=== PATIENT | male | born 1935 | race Caucasian/White ===

== ENCOUNTER 2018-04-10 19:27 | Emergency (ER) | payer OTHER ==
[~2018-04-10] VITALS: Ht 167.6 cm; Wt 69.2 kg
[~2018-04-10 19:27] MED LIST: ASPEC325 PO; CARB200T PO; HYDC25 PO; METO50TA16 PO; SIMV80TA2 PO
[2018-04-10 19:44] VITALS: Ht 167.6 cm; Wt 69.2 kg
--- NOTE | 2018-04-10 20:03 | EMERGENCY ROOM VISIT NOTE ---
History Report prepared by Jero: Alexander Alonso Under the Supervision of: Dr. Art Ovalle M.D. First contact with patient: 19:46 Chief Complaint: FALL Stated Complaint: FELL ONTO CHEST 5DAYS AGO,CHEST MUSCLE PAIN History of Present Illness The patient is an 82 year old male who presents to the Emergency Room with complaints of constant right-sided chest pain following a fall beginning five days ago. The patient states that he was visiting friends in [place] a week ago and tripped over a plank of wood in their garage. He notes that he had his hands full when he fell, and he reports that he fell forward onto his chest. He reports that his chest pain worsens when he takes a deep breath. He rates his pain as a 5/10. The patient states that he has been taking tramadol and ibuprofen with no relief of his pain. He notes that he last took pain medication this morning. He notes that he had heart bypass surgery in 1998. Source of History: patient Onset: five days ago Position: chest Symptom Intensity: 5/10 Timing: constant Modifying Factors (Worsening): other (deep breathing) Review of Systems See HPI for pertinent positives & negatives. A total of 10 systems reviewed and were otherwise negative. Past Medical & Surgical Medical Problems: (1) Heart disease Surgical Problems: (1) S/P triple vessel bypass Family History Seizures Social History Smoking Status: Former Smoker Alcohol Use: none Marital Status: Housing Status: lives with family Occupation Status: retired Current/Historical Medications Scheduled Aspirin (Aspirin Ec), 325 MG PO DAILY Carbamazepine (Tegretol), 200 MG PO BID Cholecalciferol (Vitamin D3), 1 TAB PO DAILY Hydrochlorothiazide (Hydrochlorothiazide), 12.5 MG PO DAILY Metoprolol Tartrate (Lopressor) (Lopressor), 25 MG PO BID Simvastatin (Zocor), 80 MG PO QPM Scheduled PRN Tramadol (Ultram), 50 MG PO Q4H PRN for Pain Allergies Coded Allergies: Hydantoins (Verified Allergy, Unknown, 04/10/18) Phenytoin (Verified Allergy, Unknown, 04/10/18) Diltiazem (Unverified Adverse Reaction, Severe, red rash on chest, 04/10/18 ) Physical Exam Vital Signs Date Time Temp Pulse Resp B/P (MAP) Pulse Ox O2 Delivery O2 Flow Rate FiO2 04/10/18 21:44 37.5 81 19 112/72 94 04/10/18 19:44 37.5 82 16 110/50 94 Room Air Physical Exam GENERAL: Awake, alert, well-appearing, in no acute distress HENT: Normocephalic, atraumatic. Oropharynx unremarkable. EYES: Normal conjunctiva. Sclera non-icteric. NECK: Supple. No nuchal rigidity. FROM. No JVD. RESPIRATORY: Clear to auscultation. CARDIAC: Regular rate, normal rhythm. Extremities warm and well perfused. Pulses equal. ABDOMEN: Soft, non-distended. No tenderness to palpation. No rebound or guarding. No masses. RECTAL: Deferred. MUSCULOSKELETAL: The back is symmetrical on inspection without obvious abnormality. There is no CVA tenderness to palpation. No joint edema. Tender to the right chest wall around the right 8th rib area. LOWER EXTREMITIES: Calves are equal size bilaterally and non-tender. No edema. No discoloration. NEURO: Normal sensorium. No sensory or motor deficits noted. SKIN: No rash or jaundice noted. Medical Decision & Procedures ER Provider Diagnostic Interpretation: Radiology results as stated below per my review and radiologist interpretation: PA CHEST WITH RIGHT-SIDED RIB SERIES FINDINGS: A PA chest radiograph with 5 additional views may right-sided rib series is compared to study dated 08/15/2016. Correlation is made with abdominal CT dated 06/06/2010. The PA view is degraded by patient rotation. The patient is status post midline sternotomy. The cardiomediastinal heart is enlarged and there is atherosclerotic calcification of the thoracic aorta. The pulmonary vasculature is noncongested. There is bibasilar atelectasis. Chronic interstitial thickening is similar to previous. No airspace consolidation or pleural effusion is identified. No pneumothorax is seen. The skeletal structures are osteopenic. Question acute nondistracted right anterior sixth and eighth rib fractures on the rib series. No additional findings are concerning for acute/distracted right-sided rib fracture on the rib series. The remainder of the bony thorax is grossly intact. Degenerative change and scoliosis are noted in the thoracic spine. Moderate fecal retention is noted in the colon. There is advanced atherosclerotic calcification of the abdominal aorta. An abdominal aortic aneurysm is identified. Abdominal aorta aneurysm was also seen by CT in 2009. IMPRESSION: 1. Cardiomegaly without radiographic evidence of congestive failure 2. No airspace consolidation or pleural effusion is identified. 3. Question acute nondistracted right anterior sixth and eighth rib fractures on the rib series. Correlate for point tenderness. 4. No additional findings are concerning for acute fracture. 5. An abdominal aortic aneurysm is identified. An abdominal aortic aneurysm was also seen by CT in 2009. Electronically signed by: Wilbur Granados M.D. 04/10/2018 9:15 PM Medications Administered Medications (Trade) Dose Ordered Sig/Cecile Route Start Time Stop Time Status Last Admin Dose Admin Tramadol HCl (Ultram Home Pack) 1 homepack UD STAT PO 04/10/18 21:36 04/10/18 21:37 DC 04/10/18 21:39 1 HOMEPACK ED Course 1951: Past medical records reviewed. The patient was evaluated in room A10. A complete history and physical examination was performed. 2135: Tramadol HCl 1 homepack PO 2142: Upon reexamination the patient is stable. I discussed results and treatment plan with the patient. He verbalizes agreement and understanding. The patient is ready for discharge. Medical Decision Differential diagnosis: Etiologies such as cardiac ischemia, aortic dissection, pulmonary embolism, pneumonia, pneumothorax, musculoskeletal, infections, pericarditis, myocarditis , esophageal rupture, gastrointestinal, as well as others were entertained. This is an 82-year-old male who presents the emergency department complaining of right-sided chest pain. Using shared medical decision making with the patient based on the fact that the patient is tender and he had a fall 5 days ago we made the decision to have rib x-rays performed. The patient does not wish to have a CAT scan. Rib x-rays do not show any evidence of pneumonia or pneumothorax however the patient does have sixth and eighth rib fractures. He is refusing pain medication here in the emergency department however I stressed the fact that this may take up to 6 weeks to heal. In addition I recommended that the patient take incentive spirometer every 15 minutes. He is going to take Tylenol as well as Ultram for the pain. Patient and are in agreement with the treatment plan. Medication Reconcilliation Current Medication List: was personally reviewed by me Blood Pressure Screening Patient's blood pressure: Normal blood pressure Blood pressure disposition: Did not require urgent referral Impression Primary Impression: Rib fracture Additional Impression: Fall Scribe Attestation The scribe's documentation has been prepared under my direction and personally reviewed by me in its entirety. I confirm that the note above accurately reflects all work, treatment, procedures, and medical decision making performed by me. Departure Information Dispostion Home / Self-Care Prescriptions Tramadol (Ultram) 50 Mg Tab 50 MG PO Q4H Y for Pain, #14 TAB Prov: Art Ovalle MD 04/10/18 Referrals Kenny Osborn M.D. (PCP) Forms HOME CARE DOCUMENTATION FORM, IMPORTANT VISIT INFORMATION Patient Instructions My [facility] Additional Instructions You received narcotic or benzodiazepene medication while in the emergency room today. This is an addictive medication that may cause drowziness as well as constipation. Do not drive, operate heavy machinery, or drink alcohol under the influence of this medication. Take 1000 mg Tylenol every 6 hours Take Ultram for breakthrough pain You have been examined and treated today on an emergency basis only. This is not a substitute for, or an effort to provide, complete comprehensive medical care. It is impossible to recognize and treat all injuries or illnesses in a single emergency department visit. It is therefore important that you follow up closely with Dr Osborn. Call as soon as possible for an appointment. Thank you for your time and consideration. I look forward to speaking with you again soon. Please don't hesitate to call us if you have any questions. Problem Qualifiers Primary Impression: Rib fracture Encounter type: initial encounter Rib fracture type: multiple ribs Fracture type: closed Laterality: right Qualified Codes: S22.41XA - Multiple fractures of ribs, right side, initial encounter for closed fracture Additional Impression: Fall Encounter type: initial encounter Qualified Codes: W19.XXXA - Unspecified fall, initial encounter
[2018-04-10] MEDS ORDERED: ASPI325T39 PO (20:25)
[2018-04-10] MEDS ORDERED: HYDR12.55 PO (20:26)
[2018-04-10] MEDS ORDERED: CHOL1000 PO (20:28)
--- NOTE | 2018-04-10 21:17 | DIAGNOSTIC IMAGING REPORT ---
PA CHEST WITH RIGHT-SIDED RIB SERIES CLINICAL HISTORY: Fall with right-sided chest wall pain. FINDINGS: A PA chest radiograph with 5 additional views may right-sided rib series is compared to study dated 08/15/2016. Correlation is made with abdominal CT dated 06/06/2010. The PA view is degraded by patient rotation. The patient is status post midline sternotomy. The cardiomediastinal heart is enlarged and there is atherosclerotic calcification of the thoracic aorta. The pulmonary vasculature is noncongested. There is bibasilar atelectasis. Chronic interstitial thickening is similar to previous. No airspace consolidation or pleural effusion is identified. No pneumothorax is seen. The skeletal structures are osteopenic. Question acute nondistracted right anterior sixth and eighth rib fractures on the rib series. No additional findings are concerning for acute/distracted right-sided rib fracture on the rib series. The remainder of the bony thorax is grossly intact. Degenerative change and scoliosis are noted in the thoracic spine. Moderate fecal retention is noted in the colon. There is advanced atherosclerotic calcification of the abdominal aorta. An abdominal aortic aneurysm is identified. Abdominal aorta aneurysm was also seen by CT in 2009. IMPRESSION: 1. Cardiomegaly without radiographic evidence of congestive failure 2. No airspace consolidation or pleural effusion is identified. 3. Question acute nondistracted right anterior sixth and eighth rib fractures on the rib series. Correlate for point tenderness. 4. No additional findings are concerning for acute fracture. 5. An abdominal aortic aneurysm is identified. An abdominal aortic aneurysm was also seen by CT in 2009. Electronically signed by: Wilbur Granados M.D. 04/10/2018 9:15 PM Dictated Date/Time: 04/10/2018 9:10 PM
[2018-04-10] MEDS ORDERED: TRAMADOL HCL 50 MG HOME PACK PO STA (21:36)
[2018-04-10] MEDS ORDERED: TRAM-10 PO (21:39)
[2018-04-10 21:44] VITALS: BP 112/72; PULSE 81; TEMP 37.5; O2SAT 94
== END 2018-04-10 21:46 | disposition home or self-care (01) ==
LOC: C.EDB 19:29 → C.EDA 21:46
DX: S22.41XA Multiple fractures of ribs, right side, initial encounter for closed fracture (principal); W01.0XXA Fall on same level from slipping, tripping and stumbling without subsequent striking against object, initial encounter; I51.9 Heart disease, unspecified; Z95.1 Presence of aortocoronary bypass graft; Z87.891 Personal history of nicotine dependence; Z79.82 Long term (current) use of aspirin; Z79.899 Other long term (current) drug therapy; Z88.8 Allergy status to other drugs, medicaments and biological substances

== ENCOUNTER 2021-10-12 12:32 | Observation (INO) ==
--- NOTE | 2021-10-12 13:19 | Emergency Department Note ---
Impression & Plan Chest pain, CAD (coronary artery disease), History of coronary artery bypass graft x 3 ED Provider Note NAME: Ayla SIEGEL AGE: 86 SEX: M : 1935 ARRIVES VIA: Walk-In INFORMANT: patient, ED PROVIDER(S): Jose Solorio MD Chief Complaint: Chest pain HPI: Patient does present due to concern for chronic but ongoing worsening chest pain that he described over the left and central portion of the chest with radiation to right arm. Patient states it primarily occurs worse in the morning and does seem to dissipate somewhat with his Imdur but then it does not last as long. The patient does have a known history of triple bypass. The patient had tried to be seen by Dr. Carlin in the outpatient setting but was referred here for further evaluation and treatment. The patient denies any active pain at rest. Patient denies any fevers chills sweatiness or nausea. Patient denies any lower extremity swelling history DVT or PE. Patient denies any recent falls or trauma. Patient does not take anything for the pain at home other than his home medications. Patient is vaccinated for COVID-19 and denies any upper respiratory symptoms. ROS: See HPI for pertinent positives and negatives. A total of 10 systems were reviewed and otherwise negative. Past medical history: See below Surgical history: See below Social history: See below Physical Exam: GENERAL: NAD, wearing glasses, wearing a mask, non-toxic. EYE EXAM: Normal conjunctiva. PERRL, no anisocoria and EOM's grossly intact w/o pain. OROPHARYNX: Moist mucus membranes. Grossly normal dentition. NECK: Supple, no nuchal rigidity, no adenopathy, non-tender. No signs of meningismus. LUNGS: Clear to auscultation. Normal chest wall mechanics. HEART: Cardiac and regular, no MRG. ABDOMEN: Abdomen soft, non-tender, normo-active bowel sounds, no masses, no rebound or guarding. BACK: No CVA TTP. SKIN: No rashes and no bruising. UPPER EXTREMITIES: Upper extremities are grossly normal. LOWER EXTREMITIES: Grossly normal, no edema. Negative Homans' sign bilaterally. NEURO EXAM: A&O x3, cranial nerves II-XII grossly intact, normal speech, moves all 4 extremities on command w/o issue. Differential diagnoses: Cardiac ischemia, aortic dissection, pulmonary embolism, pneumothorax, pneumonia, pericarditis, myocarditis, esophageal rupture, GERD, cholecystitis, pancreatitis, musculoskeletal, as well as other pathologies. Course: Patient was seen and evaluated the bedside. Full history physical exam was performed. EKG interpreted by me Sinus bradycardia with first-degree AV block, rate of 58, prolonged TX, normal QRS, normal axis, T wave inversions laterally and high lateral leads. Slight depressions noted as well. Patient does have T wave inversions inferiorly. The patient does appear to have slight depressions in the lateral leads which appear to be old T wave inversions in the lateral leads appear to be new. Patient does have new T wave inversion in aVF. This is from comparison EKG May 20, 20192009. Imaging Studies: See Below Cardiac monitoring: An order was placed for continuous cardiac monitoring. The monitor shows a rate of 52 with bradycardic and regular rhythm. MDM: Patient was seen due to concern for atypical chest pain. Patient does have a known history of CABG. After further discussion with the patient I did state that it would be of benefit for further evaluation treatment given that the pat ient may have anginal type symptoms that occur in the morning. I did speak with the on-call security attendant Dr. Stevenson who did recommend observation echocardiogram and continue troponins. The patient has no active chest pain at the time of reassessment. Patient was told to inform staff if the patient does develop chest pains. Patient understood. Patient has a normal white count with mild anemia 12.3. The patient's kidney function is unremarkable with mild prerenal azotemia and negative troponin. Covid negative. Chest x-ray shows cardiomegaly. I did speak the on-call hospitalist and a SchreckengostPAYAL and the patient was admitted by Dr. Hatch. Patient already had taken a full dose a spirin today. Past Med/Surg History Medical History (Updated 10/12/21 @ 18:15 by Jose Solorio MD) AAA (abdominal aortic aneurysm) CAD (coronary artery disease) Status post coronary bypass grafting, 1998, CHASE graft to LAD, free radial graft from left internal mammary artery to the left first obtuse marginal, and right internal mammary artery graft to the right coronary artery. Fall Heart disease (~1998) Hyperlipidemia Hypertension Left knee pain Lyme arthritis Lyme disease Right rib fracture Surgical History (Updated 10/12/21 @ 18:15 by Jose Solorio MD) S/P CABG (coronary artery bypass graft) Social History (Updated 10/12/21 @ 18:13 by Jose Solorio MD) Smoking Status: Never smoker Hx Alcohol Use: No Hx Substance Use: No Preferred Language: Georgian Feels Safe at Home: Yes Immunizations: Vaccinated for COVID-19 Allergies Allergies Allergy/AdvReac Type Severity Reaction Status Date / Time diltiazem AdvReac Severe red rash Verified 10/12/21 13:56 on chest Hydantoins AdvReac Severe CAUSES A Verified 10/12/21 13:56 SEIZURE phenytoin AdvReac Severe CAUSES A Verified 10/12/21 13:56 SEIZURE Home Meds Home Medications Medication Instructions Recorded Confirmed aspirin 325 mg tablet,delayed 325 mg PO HS 12/28/19 10/12/21 release carbamazepine 200 mg tablet 200 mg PO BID 12/28/19 10/12/21 (Tegretol) cholecalciferol (vitamin D3) 25 1,000 unit PO QAM 12/28/19 10/12/21 mcg (1,000 unit) tablet (Vitamin D3) diclofenac sodium 1 % topical gel 2 g TOPICAL QID PRN 06/02/20 10/12/21 ezetimibe 10 mg tablet (Zetia) 10 mg PO QPM 06/02/20 10/12/21 ferrous sulfate 27 mg iron tablet 27 mg PO DAILY 06/02/20 10/12/21 lisinopril 10 1 tab PO DAILY 06/02/20 10/12/21 mg-hydrochlorothiazide 12.5 mg tablet metoprolol tartrate 50 mg tablet 25 mg PO BID 06/02/20 10/12/21 (Lopressor) multivitamin 1 tab PO DAILY 06/02/20 10/12/21 rosuvastatin 40 mg tablet (Crestor) 40 mg PO QPM 06/02/20 10/12/21 amlodipine 2.5 mg tablet 2.5 mg PO DAILY 10/12/21 10/12/21 isosorbide mononitrate 30 mg 30 mg PO DAILY 10/12/21 10/12/21 tablet,extended release 24 hr Results & Data (ED) Vital Signs Vital Signs - 24 hr 10/12/21 12:49 10/12/21 14:01 10/12/21 15:10 Temperature 37.2 C Temperature Source Oral Pulse Rate 59 L Pulse Rate [Apical] 46 L 46 L Pulse Rhythm [Apical] Regular Regular Respiratory Rate 18 16 16 Respiratory Effort / Characteristics Non-Labored Spontaneous Non-Labored Spontaneous Respiratory Depth Normal Normal Blood Pressure 121/61 Blood Pressure [Right Arm] 108/58 L 127/62 Blood Pressure Mean 81 Blood Pressure Mean [Right Arm] 74 83 Blood Pressure Position [Right Arm] Sitting Pulse Oximetry 93 98 100 Oxygen Delivery Method Room Air Room Air Room Air Sepsis Recent Fever Within 48 Hours No Sepsis New/Unexplained Change in Mental Status N/A Sepsis Action Taken by Nursing No Action Required 10/12/21 15:14 Temperature Temperature Source Pulse Rate Pulse Rate [Apical] Pulse Rhythm [Apical] Respiratory Rate Respiratory Effort / Characteristics Respiratory Depth Blood Pressure Blood Pressure [Right Arm] Blood Pressure Mean Blood Pressure Mean [Right Arm] Blood Pressure Position [Right Arm] Pulse Oximetry Oxygen Delivery Method Room Air Sepsis Recent Fever Within 48 Hours Sepsis New/Unexplained Change in Mental Status Sepsis Action Taken by Nursing Laboratory Data Result diagrams: 10/12/21 13:15 10/12/21 13:15 Lab Results 10/12/21 10/12/21 10/12/21 Range/Units 13:15 13:15 14:14 WBC 7.95 (4.8-10.8) K/uL RBC 3.76 L (4.7-6.1) M/uL Hgb 12.3 L (14.0-18.0) g/dL POC Hgb Cancelled Hct 37.0 L (42-52) % POC Hct Cancelled MCV 98.4 (80-100) fL MCH 32.7 (25-34) pg MCHC 33.2 (32-36) g/dL RDW Std Deviation 46.6 H (36.4-46.3) fL RDW Coeff of Ana 13.0 (11.5-14.5) % Plt Count 194 (130-400) K/uL MPV 8.7 (7.4-10.4) fL Immature Gran % (Auto) 0.1 % Neut % (Auto) 66.8 % Lymph % (Auto) 22.4 % [place] % (Auto) 7.3 % Eos % (Auto) 3.3 % Baso % (Auto) 0.1 % Neut # (Auto) 5.31 (1.4-6.5) K/uL Lymph # (Auto) 1.78 (1.2-3.4) K/uL [place] # (Auto) 0.58 (0.11-0.59) K/uL Eos # (Auto) 0.26 (0-0.5) K/uL Baso # (Auto) 0.01 (0-0.2) K/uL Immature Gran # (Auto) 0.01 (0.00-0.02) K/uL POC Sodium Cancelled Sodium 139 (136-145) mmol/L POC Potassium Cancelled Potassium 4.1 (3.5-5.1) mmol/L POC Chloride Cancelled Chloride 106 (98-107) mmol/L Carbon Dioxide 27 (21-32) mmol/L POC Total CO2 Cancelled Anion Gap 7.0 (3-11) POC Anion Gap Cancelled POC BUN Cancelled BUN 18 (7-18) mg/dl Creatinine 0.67 (0.6-1.4) mg/dl POC Creatinine Cancelled Est Cr Clr Drug Dosing 74.1 ml/min Est GFR ( Amer) 102.3 ml/min Est GFR (Non-Af Amer) 88.2 ml/min BUN/Creatinine Ratio 27.2 H (10-20) Glucose 97 (70-99) mg/dl POC Glucose (other) Cancelled Calcium 8.9 (8.5-10.1) mg/dl POC Ioniz Calcium Damon Cancelled Total Bilirubin 0.4 (0.2-1) mg/dl AST 16 (15-37) U/L ALT 17 (12-78) U/L Alkaline Phosphatase 82 (45-117) U/L Troponin I < 0.015 (0-0.045) ng/ml Total Protein 6.8 (6.4-8.2) gm/dl Albumin 3.5 (3.4-5.0) gm/dl Globulin 3.3 (2.5-4.0) gm/dl Albumin/Globulin Ratio 1.1 (0.9-2) Lipase 138 (73-393) U/L SARS-CoV-2, RNA, NAAT (NEGATIVE) 10/12/21 Range/Units 15:17 WBC (4.8-10.8) K/uL RBC (4.7-6.1) M/uL Hgb (14.0-18.0) g/dL POC Hgb Hct (42-52) % POC Hct MCV (80-100) fL MCH (25-34) pg MCHC (32-36) g/dL RDW Std Deviation (36.4-46.3) fL RDW Coeff of Ana (11.5-14.5) % Plt Count (130-400) K/uL MPV (7.4-10.4) fL Immature Gran % (Auto) % Neut % (Auto) % Lymph % (Auto) % [place] % (Auto) % Eos % (Auto) % Baso % (Auto) % Neut # (Auto) (1.4-6.5) K/uL Lymph # (Auto) (1.2-3.4) K/uL [place] # (Auto) (0.11-0.59) K/uL Eos # (Auto) (0-0.5) K/uL Baso # (Auto) (0-0.2) K/uL Immature Gran # (Auto) (0.00-0.02) K/uL POC Sodium Sodium (136-145) mmol/L POC Potassium Potassium (3.5-5.1) mmol/L POC Chloride Chloride (98-107) mmol/L Carbon Dioxide (21-32) mmol/L POC Total CO2 Anion Gap (3-11) POC Anion Gap POC BUN BUN (7-18) mg/dl Creatinine (0.6-1.4) mg/dl POC Creatinine Est Cr Clr Drug Dosing ml/min Est GFR ( Amer) ml/min Est GFR (Non-Af Amer) ml/min BUN/Creatinine Ratio (10-20) Glucose (70-99) mg/dl POC Glucose (other) Calcium (8.5-10.1) mg/dl POC Ioniz Calcium Damon Total Bilirubin (0.2-1) mg/dl AST (15-37) U/L ALT (12-78) U/L Alkaline Phosphatase (45-117) U/L Troponin I (0-0.045) ng/ml Total Protein (6.4-8.2) gm/dl Albumin (3.4-5.0) gm/dl Globulin (2.5-4.0) gm/dl Albumin/Globulin Ratio (0.9-2) Lipase (73-393) U/L SARS-CoV-2, RNA, NAAT NEGATIVE (NEGATIVE) Administered Medications Discontinued Medications Isosorbide Mononitrate (Isosorbide [place] Extended Rel 30 Mg Tabcr) 30 mg PO NOW ONE Stop: 10/12/21 16:16 Last Admin: 10/12/21 16:46 Dose: 30 mg Documented by: [id number] Imaging Data Radiologist's Impression: Chest X-Ray 10/12/21 13:02 XR chest 1V portable HISTORY: Atypical Chest Pain COMPARISON: Chest 04/10/2018. FINDINGS: The heart is mildly enlarged. No pneumothorax. No pleural effusions. There are poststernotomy changes. Low lung volumes. Mild interstitial thickening within the mid to lower lung zones. This is likely chronic. IMPRESSION: Cardiomegaly with mild chronic interstitial thickening. Otherwise, no acute process within the chest ACT 112: Negative or not required by law. Electronically signed by: Issa Funk M.D. 10/12/2021 1:42 PM Discharge Plan Visit Data Chief Complaint: Chest Pain Stated Complaint: CHEST PAIN/BILATERAL ARM PAIN ED Provider: Jose Solorio Discharge Problem: Chest pain, CAD (coronary artery disease), History of coronary artery bypass graft x 3 Forms Stand Alone Forms: My [facility] [employer] Prescriptions Prescriptions: No Action carbamazepine [Tegretol] 200 mg Tablet 200 mg PO BID RF: 0 aspirin 325 mg Tablet,Delayed Release (Dr/Ec) 325 mg PO HS RF: 0 cholecalciferol (vitamin D3) [Vitamin D3] 25 mcg (1,000 unit) Tablet 1,000 unit PO QAM RF: 0 multivitamin Tablet 1 tab PO DAILY RF: 0 metoprolol tartrate [Lopressor] 50 mg tablet 25 mg PO BID RF: 0 lisinopril-hydrochlorothiazide 10-12.5 mg tablet 1 tab PO DAILY RF: 0 ezetimibe [Zetia] 10 mg tablet 10 mg PO QPM RF: 0 rosuvastatin [Crestor] 40 mg tablet 40 mg PO QPM RF: 0 ferrous sulfate 27 mg iron Tablet 27 mg PO DAILY RF: 0 diclofenac sodium 1 % Gel 2 g TOPICAL QID PRN (Reason: Pain) RF: 0 isosorbide mononitrate 30 mg tablet extended release 24 hr 30 mg PO DAILY RF: 0 amlodipine 2.5 mg tablet 2.5 mg PO DAILY RF: 0 Referrals Referrals: Kenny Osborn MD [Primary Care Provider] -
[2021-10-12 13:26] LABS: Basophils # (auto) 0.01 K/uL (0-0.2); Basophils % (auto) 0.1 %; Eosinophils # (auto) 0.26 K/uL (0-0.5); Eosinophils % (auto) 3.3 %; Hemoglobin 12.3 g/dL (14.0-18.0); Immature Granulocytes # (auto) 0.01 K/uL (0.00-0.02); Immature Granulocytes % (auto) 0.1 %; Lymphocytes # (auto) 1.78 K/uL (1.2-3.4); Lymphocytes % (auto) 22.4 %; Mean Corpuscular Hemoglobin 32.7 pg (25-34); Mean Corpuscular Hgb Conc 33.2 g/dL (32-36); Mean Corpuscular Volume 98.4 fL (80-100); Mean Platelet Volume 8.7 fL (7.4-10.4); Monocytes # (auto) 0.58 K/uL (0.11-0.59); Monocytes % (auto) 7.3 %; Neutrophils # (auto) 5.31 K/uL (1.4-6.5); Neutrophils % (auto) 66.8 %; Platelet Count 194 K/uL (130-400); RDW Standard Deviation 46.6 fL (36.4-46.3); Red Blood Count 3.76 M/uL (4.7-6.1); White Blood Count 7.95 K/uL (4.8-10.8)
--- NOTE | 2021-10-12 13:43 | XRay Report ---
XR chest 1V portable HISTORY: Atypical Chest Pain COMPARISON: Chest 04/10/2018. FINDINGS: The heart is mildly enlarged. No pneumothorax. No pleural effusions. There are poststernoto my changes. Low lung volumes. Mild interstitial thickening within the mid to lower lung zones. This i s likely chronic. IMPRESSION: Cardiomegaly with mild chronic interstitial thickening. Otherwise, no acute process within the chest ACT 112: Negative or not required by law. Electronically signed by: Issa Funk M.D. 10/12/2021 1:42 PM
[2021-10-12 13:48] LABS: Alanine Aminotransferase 17 U/L (12-78); Albumin Level 3.5 gm/dl (3.4-5.0); Aspartate Aminotransferase 16 U/L (15-37); BUN Creatinine Ratio 27.2 (10-20); Blood Urea Nitrogen 18 mg/dl (7-18); Calcium 8.9 mg/dl (8.5-10.1); Carbon Dioxide 27 mmol/L (21-32); Chloride 106 mmol/L (98-107); Creatinine Clr Calc Pharmacy 74.1 ml/min; Est GFR (African American) 102.3 ml/min; Est GFR (Non-African American) 88.2 ml/min; Glucose 97 mg/dl (70-99); Lipase 138 U/L (73-393); Potassium 4.1 mmol/L (3.5-5.1); Sodium 139 mmol/L (136-145)
[2021-10-12 13:52] LABS: Albumin Globulin Ratio 1.1 (0.9-2); Alkaline Phosphatase 82 U/L (45-117); Bilirubin,Total 0.4 mg/dl (0.2-1); Globulin 3.3 gm/dl (2.5-4.0); Total Protein 6.8 gm/dl (6.4-8.2); Troponin I < 0.015 ng/ml (0-0.045)
--- NOTE | 2021-10-12 15:52 | Cardiology Consultation ---
Date of Consultation October 12, 2021 Assessment & Plan (1) Chest pain: (2) CAD (coronary artery disease): (3) Hypertension: (4) Chronic stable angina: Worsening chest comfort x3 weeks History of coronary artery disease status post CABG x3 in 1998 Initial ischemic evaluation in the ER was unremarkable. Symptoms suspicious for pericarditis and patient does admit to a recent sinus infection We will check an echocardiogram now Recommend admit for observation to obtain 3 sets of cardiac enzymes. Should the enzymes and echocardiogram come back unremarkable then will likely build to discharge the patient to home and complete ischemic work-up as an outpatient. I will also take this opportunity to increase his Imdur to 60 mg daily but all other outpatient cardiac medications should be continued. History of Present Illness Reason for Consultation: chest pain Requesting Physician: Dr. Solorio Attending Physician: EMILIANO History of Present Illness It was my pleasure to see Mr. Wheeler in cardiac consultation today October 12, 2021. He is a very pleasant 86-year-old gentleman who routinely follows with Dr. Carlin of our cardiology practice. He presents to [facility] today at the advice of our office with worsening chest discomfort. He states the discomfort started several weeks ago. He described as a tightness sensation that was different from his normal anginal equivalent. He states it first occurred when he was laying down in bed but will go away upon standing. He was seen by Dr. Carlin and started on Imdur and his chest discomfort improved. However, over the last couple days he started noticing that an hour or 2 after taking his morning Imdur the chest discomfort would recur. This can be either at rest or with exertion. He denies any associated symptoms with it. He has been compliant with all of his medications. Past medical history as per most recent outpatient note: 1.Atherosclerotic coronary disease with prior inferoseptal myocardial infarction, February 1999. 2.Status post coronary bypass grafting, 1998, CHASE graft to LAD, free radial graft from left internal mammary artery to the left first obtuse marginal, and right internal mammary artery graft to the right coronary artery. 3.Class I-II angina pectoris. 4.Hypertension. 5.Hyperlipidemia 6. Abdominal aortic aneurysm 7. Fibrotic changes of the lungs Allergies Allergy/AdvReac Type Severity Reaction Status Date / Time diltiazem AdvReac Severe red rash Verified 10/12/21 13:56 on chest Hydantoins AdvReac Severe CAUSES A Verified 10/12/21 13:56 SEIZURE phenytoin AdvReac Severe CAUSES A Verified 10/12/21 13:56 SEIZURE Home Medications Medication Instructions Recorded Confirmed Type aspirin 325 mg tablet,delayed 325 mg PO HS 12/28/19 10/12/21 History release carbamazepine 200 mg tablet 200 mg PO BID 12/28/19 10/12/21 History (Tegretol) cholecalciferol (vitamin D3) 25 1,000 unit PO QAM 12/28/19 10/12/21 History mcg (1,000 unit) tablet (Vitamin D3) diclofenac sodium 1 % topical gel 2 g TOPICAL QID PRN 06/02/20 10/12/21 History ezetimibe 10 mg tablet (Zetia) 10 mg PO QPM 06/02/20 10/12/21 History ferrous sulfate 27 mg iron tablet 27 mg PO DAILY 06/02/20 10/12/21 History lisinopril 10 1 tab PO DAILY 06/02/20 10/12/21 History mg-hydrochlorothiazide 12.5 mg tablet metoprolol tartrate 50 mg tablet 25 mg PO BID 06/02/20 10/12/21 History (Lopressor) multivitamin 1 tab PO DAILY 06/02/20 10/12/21 History rosuvastatin 40 mg tablet (Crestor) 40 mg PO QPM 06/02/20 10/12/21 History Patient History Medical History (Updated 10/12/21 @ 15:50 by Biju Stevenson DO) Fall Heart disease (~1998) Left knee pain Lyme arthritis Lyme disease Right rib fracture Social History Smoking Status: Never smoker Preferred Language: Palau[place] Feels Safe at Home: Yes Review of Systems Review of Systems: All systems reviewed & are unremarkable except as noted in HPI & below Physical Exam Physical Exam: General: Awake, alert and oriented x 3. No acute distress. HEENT: Normocephalic, atraumatic. Pupils equal, round and reactive to light and accommodation. Extraocular muscles are intact. Anicteric sclera. Moist mucous membranes. Neck: No JVD. No bruit. Cardiovascular: Regular. Positive S-4. Normal S-1 and S-2. No S-3. No murmurs or rubs. Pulmonary: Clear to auscultation B/L. No rales, rhonchi or wheezing Abdomen: Bowel sounds x 4, soft. No rebound, guarding or tenderness. No organomegaly. Extremities: No clubbing, cyanosis or edema. +2 pedal pulses bilaterally. Skin: Warm and dry. Results & Data ([facility]) Vital Signs (Past 12 Hours) Vital Signs Temp Pulse Pulse Resp BP BP Pulse Ox 10/12/21 15:10 46 L 16 127/62 100 10/12/21 14:01 46 L 16 108/58 L 98 10/12/21 12:49 37.2 C 59 L 18 121/61 93
[2021-10-12] MEDS ORDERED: ISOSORBIDE MONO EXTENDED REL 30 MG TABCR PO ONE (16:15)
--- NOTE | 2021-10-12 16:31 | History & Physical Report ---
Date of Service October 12, 2021 Assessment & Plan (1) Chest pain: Plan: - Admit to tele for observation for r/o - Trend cardiac biomarkers, initial set was negative - EKG reviewed as above without significant changes - Check 2 D echo - If negative enzymes can consider a stress test tomorrow morning. - PT/OT consulted - Cardiology consulted (2) CAD (coronary artery disease): Plan: - S/p CABG in 1998, CHASE graft to LAD, free radical graft from left internal mammary artery to the left first obtuse marginal, and right internal mammary artery graft to the right coronary artery. - Cardiology consulted - appreciate recs - Continue medications as per cards with increase in imdur from 30 to 60 mg daily. (3) Hypertension: Plan: - Meds as above, stable BP 127/62 (4) AAA (abdominal aortic aneurysm): Plan: -Last imaging report CT abd/pelvic per epic measured 5.4 cm infrarenal abdominal aortic aneurysm on 11/26/1907/08/2020 - Unlikely that the pt would be a surgical candidate at this time due to age and other medical history (5) Hyperlipidemia: Plan: - Cont statin therapy DVT ppx: Teds, scds, aspirin CODE: DNR/DNI Likely to remain in the hospital overnight for observation with anticipated discharge tomorrow. History of Present Illness Chief Complaint: Chest pain Primary Care Provider: Kenny Osborn MD This is a 89-year-old male with PMHx of CAD status post CABG in 1998, HTN, HLD, AAA, vitamin D deficiency, who presents from the cardiology office today for complaints of chest pain. He was with his at her PCP appointment earlier today, and she walked him over to the cardiology unit at [facility] due to increased angina x past 3 weeks. He has been experiencing chest pressure/heaviness, with radiation down into the R arm moreso than the L for much longer than the 3 wk timeframe. At his last cardiology appt with Dr. Carlin, he was placed on amlodipine and isosorbide mononitrate. Since then he has felt improvement of his symptoms, however notices them most whenever he wakes up in the morning, and at rest. Medications including the amlodipine and isosorbide mononitrate at times to take with his breakfast, and he notes " It's like they're wearing off, and just doesn't get me through a 24 hour period". His chest complaints are worsened on exertion and are more severe. Over a year ago the patient remain fairly physically active, riding his bike daily, taking walks and hikes around his [place] property, but now is unable to do so because of this chest pain. He denies chest pain presently. No associated shortness of breath, palpitations, abdominal complaints, nausea, vomiting. Here in the ER pt has negative troponin, EKG reviewed does not show acute changes. Cardiology has been consulted. Allergies Allergy/AdvReac Type Severity Reaction Status Date / Time diltiazem AdvReac Severe red rash Verified 10/12/21 13:56 on chest Hydantoins AdvReac Severe CAUSES A Verified 10/12/21 13:56 SEIZURE phenytoin AdvReac Severe CAUSES A Verified 10/12/21 13:56 SEIZURE Home Medications Medication Instructions Recorded Confirmed Type aspirin 325 mg tablet,delayed 325 mg PO HS 12/28/19 10/12/21 History release carbamazepine 200 mg tablet 200 mg PO BID 12/28/19 10/12/21 History (Tegretol) cholecalciferol (vitamin D3) 25 1,000 unit PO QAM 12/28/19 10/12/21 History mcg (1,000 unit) tablet (Vitamin D3) diclofenac sodium 1 % topical gel 2 g TOPICAL QID PRN 06/02/20 10/12/21 History ezetimibe 10 mg tablet (Zetia) 10 mg PO QPM 06/02/20 10/12/21 History ferrous sulfate 27 mg iron tablet 27 mg PO DAILY 06/02/20 10/12/21 History lisinopril 10 1 tab PO DAILY 06/02/20 10/12/21 History mg-hydrochlorothiazide 12.5 mg tablet metoprolol tartrate 50 mg tablet 25 mg PO BID 06/02/20 10/12/21 History (Lopressor) multivitamin 1 tab PO DAILY 06/02/20 10/12/21 History rosuvastatin 40 mg tablet (Crestor) 40 mg PO QPM 06/02/20 10/12/21 History amlodipine 2.5 mg tablet 2.5 mg PO DAILY 10/12/21 10/12/21 History isosorbide mononitrate 30 mg 30 mg PO DAILY 11/24/21 11/24/21 History tablet,extended release 24 hr Past Med/Surg History Medical History (Updated 10/12/21 @ 18:15 by Jose Solorio MD) AAA (abdominal aortic aneurysm) CAD (coronary artery disease) Status post coronary bypass grafting, 1998, CHASE graft to LAD, free radial graft from left internal mammary artery to the left first obtuse marginal, and right internal mammary artery graft to the right coronary artery. Fall Heart disease (~1998) Hyperlipidemia Hypertension Left knee pain Lyme arthritis Lyme disease Right rib fracture Surgical History (Updated 10/12/21 @ 18:15 by Jose Solorio MD) S/P CABG (coronary artery bypass graft) Social History (Updated 10/12/21 @ 18:13 by Jose Solorio MD) Smoking Status: Never smoker Hx Alcohol Use: No Hx Substance Use: No Preferred Language: Mongolian Feels Safe at Home: Yes Review of Systems Review of Systems: Constitutional: No fever, sweats or chills Eyes: No diplopia, no worsening or blurred vision ENT: normal hearing, no trouble swallowing Respiratory: No cough, sputum, dyspnea at rest or on exertion Cardiovascular: + As per HPI, + chest pain, tightness, no palpitations Abdomen: No pain, nausea, vomiting, diarrhea or constipation Musculoskeletal: No joint pain, calf pain, swelling Neurologic: No weakness, numbness/tingling, or balance problems Psychiatric: No anxiety or depression Skin: No rash or itch Physical Exam Physical Exam: General: awake, alert, no apparent distress Head: Normocephalic, atraumatic ENT: PERRL, EOMI, no pharyngeal exudate, mucous membranes moist Chest: Clear to auscultation, on room air, no adventitious breath sounds Cardiac: Sinus bradycardia with HR in the 50s, no murmur, no JVD, normal peripheral pulses, good capillary refill Abdominal: NABS x 4 quadrants, soft, nondistended, nontender to palpation, no rebound or guarding Extremities: Normal inspection, no peripheral edema or erythema, calfs nontender to palpation Psych: Normal mood and affect Neuro: AAO x 3, strength intact bilaterally and rated 5/5, no motor deficits, speech is clear, no peripheral sensory deficits Results & Data Results & Data ([facility]) Vital Signs (Past 12 Hours) Vital Signs Temp Pulse Pulse Resp BP BP Pulse Ox 10/12/21 15:10 46 L 16 127/62 100 10/12/21 14:01 46 L 16 108/58 L 98 10/12/21 12:49 37.2 C 59 L 18 121/61 93 Laboratory Results 10/12/21 10/12/21 10/12/21 15:17 14:14 13:15 WBC RBC Hgb POC Hgb Cancelled Hct POC Hct Cancelled MCV MCH MCHC RDW Std Deviation RDW Coeff of Ana Plt Count MPV Immature Gran % (Auto) Neut % (Auto) Lymph % (Auto) Nye % (Auto) Eos % (Auto) Baso % (Auto) Neut # (Auto) Lymph # (Auto) Nye # (Auto) Eos # (Auto) Baso # (Auto) Immature Gran # (Auto) POC Sodium Cancelled Sodium 139 POC Potassium Cancelled Potassium 4.1 POC Chloride Cancelled Chloride 106 Carbon Dioxide 27 POC Total CO2 Cancelled Anion Gap 7.0 POC Anion Gap Cancelled POC BUN Cancelled BUN 18 Creatinine 0.67 POC Creatinine Cancelled Est Cr Clr Drug Dosing 74.1 Est GFR ( Amer) 102.3 Est GFR (Non-Af Amer) 88.2 BUN/Creatinine Ratio 27.2 H Glucose 97 POC Glucose (other) Cancelled Calcium 8.9 POC Ioniz Calcium Damon Cancelled Total Bilirubin 0.4 AST 16 ALT 17 Alkaline Phosphatase 82 Troponin I < 0.015 Total Protein 6.8 Albumin 3.5 Globulin 3.3 Albumin/Globulin Ratio 1.1 Lipase 138 SARS-CoV-2, RNA, NAAT NEGATIVE 10/12/21 13:15 WBC 7.95 RBC 3.76 L Hgb 12.3 L POC Hgb Hct 37.0 L POC Hct MCV 98.4 MCH 32.7 MCHC 33.2 RDW Std Deviation 46.6 H RDW Coeff of Ana 13.0 Plt Count 194 MPV 8.7 Immature Gran % (Auto) 0.1 Neut % (Auto) 66.8 Lymph % (Auto) 22.4 Nye % (Auto) 7.3 Eos % (Auto) 3.3 Baso % (Auto) 0.1 Neut # (Auto) 5.31 Lymph # (Auto) 1.78 Nye # (Auto) 0.58 Eos # (Auto) 0.26 Baso # (Auto) 0.01 Immature Gran # (Auto) 0.01 POC Sodium Sodium POC Potassium Potassium POC Chloride Chloride Carbon Dioxide POC Total CO2 Anion Gap POC Anion Gap POC BUN BUN Creatinine POC Creatinine Est Cr Clr Drug Dosing Est GFR ( Amer) Est GFR (Non-Af Amer) BUN/Creatinine Ratio Glucose POC Glucose (other) Calcium POC Ioniz Calcium Damon Total Bilirubin AST ALT Alkaline Phosphatase Troponin I Total Protein Albumin Globulin Albumin/Globulin Ratio Lipase SARS-CoV-2, RNA, NAAT Diagnostic Findings Chest X-Ray 10/12/21 13:02 XR chest 1V portable HISTORY: Atypical Chest Pain COMPARISON: Chest 04/10/2018. FINDINGS: The heart is mildly enlarged. No pneumothorax. No pleural effusions. There are poststernotomy changes. Low lung volumes. Mild interstitial thickening within the mid to lower lung zones. This is likely chronic. IMPRESSION: Cardiomegaly with mild chronic interstitial thickening. Otherwise, no acute process within the chest ACT 112: Negative or not required by law. Electronically signed by: Issa Funk M.D. 10/12/2021 1:42 PM ECG Additional Comments: 12-OCT-2021 12:56:21 [facility]-EDSTAT ROUTINE RETRIEVAL Sinus bradycardia with 1st degree A-V block ST & T wave abnormality, consider anterolateral ischemia Abnormal ECG When compared with ECG of 06-JUN-2010 23:59, Premature ventricular complexes are no longer Present [place] interval has increased T wave inversion now evident in Inferior leads T wave inversion now evident in Anterolateral leads 25mm/s 10mm/mV 150Hz 9.0.9 12SL 241 CIRILO: 15 Referred by: Matthew Carlin Unconfirmed Vent. rate 58 BPM NY interval 246 ms QRS duration 94 ms QT/QTc 418/410 ms Code Status & VTE Plan Code Status DNR/DNI - discussed with the patient at bedside Supervising Physician Co-Signing Physician Notes 89-year-old male with PMHx of CAD status post CABG x3 in 1998, HTN, HLD, AAA (5.9 cm Nov 2019), vitamin D deficiency presented 10/12 to our ED with ongoing chest complain for a month. Patient reports on and off chest pain for a month and was recently started on Imdur by his neuroscience director na. Imdur helped but per patient he had chest heaviness/pain early in the morning after he was started on the Imdur but was chest pain-free at the time of the day. He will be managed for chest pain rule out ACS, patient reports improvement in chest pain with increasing Imdur dose, cardiology earlier evaluated the patient. Trend the troponin. Plan for echo tomorrow per cardiology. Patient denies shortness of breath/palpitation/changes in bowel or bladder habit recently. Upon Exam GENERAL: Alert and oriented x3. NAD, on RA. Pt Eating dinner. HEENT: No pallor, no icterus. Pupils equal, round and reactive to light. Oral mucosa moist. NECK: No JVD, no neck masses. HEART: S1 and S2 heard. Regular rate and rhythm. No murmur, no gallop. RESPIRATORY SYSTEM: Normal AP diameter. No accessory muscle use. No wheezing, no crackles. ABDOMEN: Soft, bowel sounds present, nontender, no distention. CENTRAL NERVOUS SYSTEM: Alert and oriented x3. No facial droop. Speech is clear. Obeys simple commands. Moves extremities. EXTREMITIES: No edema, no erythema seen. I have seen and examined the patient and have discussed the case with the provider above. I agree with the assessment and plan as stated.
[2021-10-12] MEDS ORDERED: ACETAMINOPHEN 325 MG TAB PO PRN (19:42)
[2021-10-12] MEDS ORDERED: ONDANSETRON INJ 2 MG/ML 2 ML VIAL IV PRN (19:42)
[2021-10-12] MEDS ORDERED: DICLOFENAC SOD 1% GEL 100 GM TUBE EXT PRN (19:42)
[2021-10-12] MEDS ORDERED: EZETIMIBE 10 MG TABLET PO SCH (21:00)
[2021-10-12] MEDS ORDERED: ROSUVASTATIN CALCIUM 20 MG TAB PO SCH (21:00)
[2021-10-12] MEDS ORDERED: ASPIRIN 325 MG ECTAB PO SCH (21:00)
[2021-10-12] MEDS: carBAMazepine 200 MG TABLET PO SCH (22:44)
[2021-10-12] MEDS: METOPROLOL TARTRATE 25 MG TAB PO SCH (22:47)
--- NOTE | 2021-10-13 07:02 | Electrocardiogram Report ---
Test Reason : Blood Pressure : / mmHG Vent. Rate : 058 BPM Atrial Rate : 058 BPM P-R Int : 246 ms QRS Dur : 094 ms QT Int : 418 ms P-R-T Axes : 004 050 257 degrees QTc Int : 410 ms Sinus bradycardia with 1st degree A-V block Abnormal ECG When compared with ECG of 06-JUN-2010 23:59, Premature ventricular complexes are no longer Present AL interval has increased T wave inversion now evident in Inferolateral leads Confirmed by Chaitanya Manzano ([id number]) on 10/13/2021 7:02:04 AM Referred By: Matthew Carlin Confirmed By:Chaitanya Manzano
[2021-10-13] MEDS: METOPROLOL TARTRATE 25 MG TAB PO SCH (07:57)
[2021-10-13] MEDS: carBAMazepine 200 MG TABLET PO SCH (08:04)
[2021-10-13 08:58] LABS: Hematocrit (blood only) 36.7 % (42-52); Hemoglobin 12.4 g/dL (14.0-18.0); Mean Corpuscular Hemoglobin 33.2 pg (25-34); Mean Corpuscular Hgb Conc 33.8 g/dL (32-36); Mean Corpuscular Volume 98.4 fL (80-100); Mean Platelet Volume 8.6 fL (7.4-10.4); Platelet Count 173 K/uL (130-400); RDW Coefficient of Variation 13.2 % (11.5-14.5); RDW Standard Deviation 47.5 fL (36.4-46.3); Red Blood Count 3.73 M/uL (4.7-6.1); White Blood Count 6.23 K/uL (4.8-10.8)
[2021-10-13] MEDS ORDERED: ISOSORBIDE MONO EXTENDED REL 60 MG TABCR PO SCH (09:00)
[2021-10-13] MEDS ORDERED: NON-FORMULARY MEDICATION (Ferrous Sulfate 27 mg iron Tablet) PO SCH (09:00)
[2021-10-13] MEDS ORDERED: amLODIPine BESYLATE 5 MG TAB PO SCH (09:00)
[2021-10-13] MEDS ORDERED: LISINOPRIL/HCTZ 10/12.5MG TAB PO SCH (09:00)
[2021-10-13] MEDS ORDERED: MULTIVITAMIN TAB PO SCH (09:00)
[2021-10-13] MEDS ORDERED: CHOLECALCIFEROL 1,000 UNITS 25 MCG TAB PO SCH (09:00)
[2021-10-13 09:30] LABS: Alanine Aminotransferase 17 U/L (12-78); Albumin Level 3.4 gm/dl (3.4-5.0); Aspartate Aminotransferase 14 U/L (15-37); BUN Creatinine Ratio 21.7 (10-20); Blood Urea Nitrogen 15 mg/dl (7-18); Calcium 8.9 mg/dl (8.5-10.1); Carbon Dioxide 28 mmol/L (21-32); Chloride 104 mmol/L (98-107); Creatinine Clr Calc Pharmacy 70.9 ml/min; Est GFR (African American) 100.4 ml/min; Est GFR (Non-African American) 86.7 ml/min; Glucose 148 mg/dl (70-99); Potassium 3.4 mmol/L (3.5-5.1); Sodium 140 mmol/L (136-145)
[2021-10-13 09:36] LABS: Alkaline Phosphatase 80 U/L (45-117); Bilirubin,Total 0.6 mg/dl (0.2-1); Globulin 3.3 gm/dl (2.5-4.0); Total Protein 6.7 gm/dl (6.4-8.2); Troponin I < 0.015 ng/ml (0-0.045)
[2021-10-13] MEDS ORDERED: POTASSIUM CHLORIDE CRTAB 20 MEQ TABCR PO STA (10:45)
--- NOTE | 2021-10-13 11:27 | Cardiology Progress Note ---
Date of Service October 13, 2021 Assessment & Plan (1) Chest pain: (2) CAD (coronary artery disease): (3) Hypertension: (4) Chronic stable angina: Plan: The patient is clinically stable. He was placed on isosorbide mononitrate several weeks ago and that was increased this admission to 60 mg daily which he is tolerating. He has a follow-up appointment with Dr. Carlin in the next few weeks that he should keep. Presently I believe he can be discharged. Admission and Anticipated Discharge Date Admission Date: October 12, 2021 Subjective The patient had an uneventful night. No more chest pain. Review of Systems Review of Systems: Review of Systems: See HPI for pertinent positives. All other 10 point review of systems are negative. Physical Exam Physical Exam: General: no acute distress and stated age Head: normocephalic, no masses, lesions, tenderness or abnormalities Eyes: conjunctiva are pink and non-injected, sclera clear Neck: supple, no adenopathy, no bruits, normal jugular venous pulse, no hepatojugular reflux Chest: normal shape and normal respiratory effort Lungs: clear to auscultation and percussion Cardiac Exam: - regular rate & rhythm, no murmurs gallops or rubs - normal S1, normal S2 Pulses: 2(+) throughout Abdomen: abdomen soft, non-tender, no abnormal masses and no hepatosplenomegaly Musculoskeletal: no gait disturbance, no joint inflammation, no deforming arthritis Extremities: no edema and no cyanosis Neuro: grossly normal exam Results & Data ([facility]) Vital Signs (Past 12 Hours) Vital Signs Temp Pulse Pulse Resp BP Pulse Ox 10/13/21 11:18 36.1 C L 73 16 122/72 95 10/13/21 08:00 54 L 10/13/21 07:00 36.7 C 61 18 122/63 95 10/13/21 03:52 36.6 C 81 20 126/85 98 Laboratory Results Laboratory Results - last 24 hr 10/12/21 10/12/21 10/12/21 13:15 13:15 14:14 WBC 7.95 RBC 3.76 L Hgb 12.3 L POC Hgb Cancelled Hct 37.0 L POC Hct Cancelled MCV 98.4 MCH 32.7 MCHC 33.2 RDW Std Deviation 46.6 H RDW Coeff of Ana 13.0 Plt Count 194 MPV 8.7 Immature Gran % (Auto) 0.1 Neut % (Auto) 66.8 Lymph % (Auto) 22.4 Bibb % (Auto) 7.3 Eos % (Auto) 3.3 Baso % (Auto) 0.1 Neut # (Auto) 5.31 Lymph # (Auto) 1.78 Bibb # (Auto) 0.58 Eos # (Auto) 0.26 Baso # (Auto) 0.01 Immature Gran # (Auto) 0.01 POC Sodium Cancelled Sodium 139 POC Potassium Cancelled Potassium 4.1 POC Chloride Cancelled Chloride 106 Carbon Dioxide 27 POC Total CO2 Cancelled Anion Gap 7.0 POC Anion Gap Cancelled POC BUN Cancelled BUN 18 Creatinine 0.67 POC Creatinine Cancelled Est Cr Clr Drug Dosing 74.1 Est GFR ( Amer) 102.3 Est GFR (Non-Af Amer) 88.2 BUN/Creatinine Ratio 27.2 H Glucose 97 POC Glucose (other) Cancelled Calcium 8.9 POC Ioniz Calcium Damon Cancelled Total Bilirubin 0.4 AST 16 ALT 17 Alkaline Phosphatase 82 Troponin I < 0.015 Total Protein 6.8 Albumin 3.5 Globulin 3.3 Albumin/Globulin Ratio 1.1 Lipase 138 SARS-CoV-2, RNA, NAAT 10/12/21 10/12/21 10/13/21 15:17 19:54 08:34 WBC 6.23 RBC 3.73 L Hgb 12.4 L POC Hgb Hct 36.7 L POC Hct MCV 98.4 MCH 33.2 MCHC 33.8 RDW Std Deviation 47.5 H RDW Coeff of Ana 13.2 Plt Count 173 MPV 8.6 Immature Gran % (Auto) Neut % (Auto) Lymph % (Auto) Bibb % (Auto) Eos % (Auto) Baso % (Auto) Neut # (Auto) Lymph # (Auto) Bibb # (Auto) Eos # (Auto) Baso # (Auto) Immature Gran # (Auto) POC Sodium Sodium POC Potassium Potassium POC Chloride Chloride Carbon Dioxide POC Total CO2 Anion Gap POC Anion Gap POC BUN BUN Creatinine POC Creatinine Est Cr Clr Drug Dosing Est GFR ( Amer) Est GFR (Non-Af Amer) BUN/Creatinine Ratio Glucose POC Glucose (other) Calcium POC Ioniz Calcium Damon Total Bilirubin AST ALT Alkaline Phosphatase Troponin I < 0.015 Total Protein Albumin Globulin Albumin/Globulin Ratio Lipase SARS-CoV-2, RNA, NAAT NEGATIVE 10/13/21 08:34 WBC RBC Hgb POC Hgb Hct POC Hct MCV MCH MCHC RDW Std Deviation RDW Coeff of Ana Plt Count MPV Immature Gran % (Auto) Neut % (Auto) Lymph % (Auto) Bibb % (Auto) Eos % (Auto) Baso % (Auto) Neut # (Auto) Lymph # (Auto) Bibb # (Auto) Eos # (Auto) Baso # (Auto) Immature Gran # (Auto) POC Sodium Sodium 140 POC Potassium Potassium 3.4 L D POC Chloride Chloride 104 Carbon Dioxide 28 POC Total CO2 Anion Gap 8.0 POC Anion Gap POC BUN BUN 15 Creatinine 0.70 POC Creatinine Est Cr Clr Drug Dosing 70.9 Est GFR ( Amer) 100.4 Est GFR (Non-Af Amer) 86.7 BUN/Creatinine Ratio 21.7 H Glucose 148 H POC Glucose (other) Calcium 8.9 POC Ioniz Calcium Damon Total Bilirubin 0.6 AST 14 L ALT 17 Alkaline Phosphatase 80 Troponin I < 0.015 Total Protein 6.7 Albumin 3.4 Globulin 3.3 Albumin/Globulin Ratio 1.0 Lipase SARS-CoV-2, RNA, NAAT Medications Administered Current Inpatient Medications Acetaminophen (Acetaminophen 325 Mg Tab) 650 mg PO Q4H PRN PRN Reason: Moderate Pain Stop: 11/11/21 19:41 Amlodipine Besylate (Amlodipine Besylate 5 Mg Tab) 2.5 mg PO DAILY DIANA Stop: 11/12/21 08:59 Last Admin: 10/13/21 07:58 Dose: 2.5 mg Documented by: Aspirin (Aspirin 325 Mg Ectab) 325 mg PO HS DIANA Stop: 11/11/21 20:59 Last Admin: 10/12/21 22:43 Dose: 325 mg Documented by: Carbamazepine (Carbamazepine 200 Mg Tablet) 200 mg PO BID DIANA Stop: 11/11/21 20:59 Last Admin: 10/13/21 08:04 Dose: 200 mg Documented by: Diclofenac Sodium (Diclofenac Sod 1% Gel 100 Gm Tube) 2 gm EXT QID PRN PRN Reason: Pain Stop: 11/11/21 19:41 Ezetimibe (Ezetimibe 10 Mg Tablet) 10 mg PO QPM DIANA Stop: 11/11/21 20:59 Last Admin: 10/12/21 22:41 Dose: 10 mg Documented by: Lisinopril/HCTZ (Lisinopril/Hctz 10/12.5mg Tab) 1 tab PO DAILY DIANA Stop: 11/12/21 08:59 Last Admin: 10/13/21 07:58 Dose: 1 tab Documented by: Isosorbide Mononitrate (Isosorbide Bibb Extended Rel 60 Mg Tabcr) 60 mg PO QAM DIANA Stop: 11/12/21 08:59 Last Admin: 10/13/21 07:58 Dose: 60 mg Documented by: Metoprolol Tartrate (Metoprolol Tartrate 25 Mg Tab) 25 mg PO BID DIANA Stop: 11/11/21 20:59 Last Admin: 10/13/21 07:57 Dose: 25 mg Documented by: Multivitamins (Multivitamin Tab) 1 tab PO DAILY DIANA Stop: 11/12/21 08:59 Last Admin: 10/13/21 07:58 Dose: 1 tab Documented by: Ondansetron HCl (Ondansetron Inj 2 Mg/Ml 2 Ml Vial) 4 mg IV Q4H PRN PRN Reason: Nausea And Vomiting Stop: 11/11/21 19:41 Rosuvastatin Calcium (Rosuvastatin Calcium 20 Mg Tab) 40 mg PO QPM DIANA Stop: 11/11/21 20:59 Last Admin: 10/12/21 22:41 Dose: 40 mg Documented by: Vitamin D (Cholecalciferol 1,000 Units 25 Mcg Tab) 1,000 units PO QAM DIANA Stop: 11/12/21 08:59 Last Admin: 10/13/21 07:58 Dose: 1,000 units Documented by: (1) CAD (coronary artery disease) Associated angina: unspecified whether angina present Coronary Disease- Associated Artery/Lesion type: unspecified vessel or lesion type [place] vs. transplanted heart: [place] heart Qualified Code(s): I25.10 - Atherosclerotic heart disease of [place] coronary artery without angina pectoris
--- NOTE | 2021-10-13 11:58 | Discharge Summary ---
Date of Service October 13, 2021 Admission HPI Per Admitting Provider This is a 89-year-old male with PMHx of CAD status post CABG in 1998, HTN, HLD, AAA, vitamin D deficiency, who presents from the cardiology office today for complaints of chest pain. He was with his at her PCP appointment earlier today, and she walked him over to the cardiology unit at [facility] due to increased angina x past 3 weeks. He has been experiencing chest pressure/heaviness, with radiation down into the R arm moreso than the L for much longer than the 3 wk timeframe. At his last cardiology appt with Dr. Carlin, he was placed on amlodipine and isosorbide mononitrate. Since then he has felt improvement of his symptoms, however notices them most whenever he wakes up in the morning, and at rest. Medications including the amlodipine and isosorbide mononitrate at times to take with his breakfast, and he notes " It's like they're wearing off, and just doesn't get me through a 24 hour period". His chest complaints are worsened on exertion and are more severe. Over a year ago the patient remain fairly physically active, riding his bike daily, taking walks and hikes around his [place] property, but now is unable to do so because of this chest pain. He denies chest pain presently. No associated shortness of breath, palpitations, abdominal complaints, nausea, vomiting. Here in the ER pt has negative troponin, EKG reviewed does not show acute changes. Cardiology has been consulted. Admission Exam Per Admitting Provider General: awake, alert, no apparent distress Head: Normocephalic, atraumatic ENT: PERRL, EOMI, no pharyngeal exudate, mucous membranes moist Chest: Clear to auscultation, on room air, no adventitious breath sounds Cardiac: Sinus bradycardia with HR in the 50s, no murmur, no JVD, normal peripheral pulses, good capillary refill Abdominal: NABS x 4 quadrants, soft, nondistended, nontender to palpation, no rebound or guarding Extremities: Normal inspection, no peripheral edema or erythema, calfs nontender to palpation Psych: Normal mood and affect Neuro: AAO x 3, strength intact bilaterally and rated 5/5, no motor deficits, speech is clear, no peripheral sensory deficits Principal Diagnosis Chest pain Discharge Exam Constitutional + well hydrated; no acute distress Respiratory normal respiratory effort, lungs clear to auscultation Cardiovascular RRR, no murmur, no edema Gastrointestinal (Abdomen) normal bowel sounds, soft, nontender, no hepatosplenomegaly Musculoskeletal no cyanosis or clubbing, extremities motor strength 5/5 Neurologic PERRL, EOMI, accommodation nl, no face palsy, no dysarthria Psychiatric A+Ox3, euthymic affect Discharge Data Allergies Allergy/AdvReac Type Severity Reaction Status Date / Time diltiazem AdvReac Severe red rash Verified 10/12/21 13:56 on chest Hydantoins AdvReac Severe CAUSES A Verified 10/12/21 13:56 SEIZURE phenytoin AdvReac Severe CAUSES A Verified 10/12/21 13:56 SEIZURE Consultations 10/12/21 14:48 ED Decision to Admit Stat 10/12/21 19:42 Consult Cardiology Routine Hospital Course (1) Chest pain: Troponins were negative EKG did not show acute ischemic event Echo noted Evaluated by cardiology and imdur increased to 60mg daily No chest pain at this time Discharged home to follow up with Cardiology outpatient (2) CAD (coronary artery disease): S/p CABG in 1998, CHASE graft to LAD, free radical graft from left internal mammary artery to the left first obtuse marginal, and right internal mammary artery graft to the right coronary artery. (3) Hypertension: (4) AAA (abdominal aortic aneurysm): Last imaging report CT abd/pelvic per epic measured 5.4 cm infrarenal abdominal aortic aneurysm on 11/26/1907/08/2020 (5) Hyperlipidemia: Cont statin therapy Total Time Total Time Spent Total Time Spent (In Minutes): 35 Total Time Includes: Examination of the Patient, Discharge Planning, Medication Reconciliation and Communication With Other Providers Discharge Plan Discharge Items Patient Disposition: Home - Self-Care Reason For Visit: CHEST PAIN Discharge Diagnosis: Chest pain Activity: Resume your previous activity Non-emergency contact: Primary Care Provider and Gas Appliance Adjuster Call non-emergency contact if: you have any medication questions and your symptoms worsen Follow-up/Referrals: Kenny Osborn MD [Primary Care Provider] - Diet: Heart Healthy Addtl Attending Provider Instructions: Mr Wheeler. You came to the hospital complaining of chest pain. You were evaluated and was also seen by the air defense specialist and your Imdur was increased to 60 mg daily. Your symptoms are currently resolved. You are being discharged home. Please ensure follow-up with your air defense specialist on already scheduled appointment date. Pending Studies at Discharge: No Stand-Alone Forms: My [facility], Smoking Cessation Medications and DC Order Prescriptions: New isosorbide mononitrate 60 mg Tablet Extended Release 24 Hr 60 mg PO QAM Qty: 30 RF: 0 Continued carbamazepine [Tegretol] 200 mg Tablet 200 mg PO BID RF: 0 aspirin 325 mg Tablet,Delayed Release (Dr/Ec) 325 mg PO HS RF: 0 cholecalciferol (vitamin D3) [Vitamin D3] 25 mcg (1,000 unit) Tablet 1,000 unit PO QAM RF: 0 multivitamin Tablet 1 tab PO DAILY RF: 0 metoprolol tartrate [Lopressor] 50 mg tablet 25 mg PO BID RF: 0 lisinopril-hydrochlorothiazide 10-12.5 mg tablet 1 tab PO DAILY RF: 0 ezetimibe [Zetia] 10 mg tablet 10 mg PO QPM RF: 0 rosuvastatin [Crestor] 40 mg tablet 40 mg PO QPM RF: 0 ferrous sulfate 27 mg iron Tablet 27 mg PO DAILY RF: 0 diclofenac sodium 1 % Gel 2 g TOPICAL QID PRN (Reason: Pain) RF: 0 amlodipine 2.5 mg tablet 2.5 mg PO DAILY RF: 0 Discontinued isosorbide mononitrate 30 mg tablet extended release 24 hr 30 mg PO DAILY RF: 0 Discharge Orders: Discharge Order (Routine); Ordered 10/13/21 Ordered By: Sandrine Roche Admission Data Admit Date/Time: 10/12/21 16:42 Attending Provider: Sandrine Roche I. Admit Provider: Hans Hatch Primary Care Provider: Kenny Osborn Other Providers: Hans Hatch ; Biju Stevenson Other Interventions: Discharge Summary Assessment (RN) Last Done: 10/13/21 12:08
--- NOTE | 2021-10-13 12:33 | Electrocardiogram Report ---
Test Reason : Blood Pressure : / mmHG Vent. Rate : 054 BPM Atrial Rate : 054 BPM P-R Int : 262 ms QRS Dur : 092 ms QT Int : 414 ms P-R-T Axes : 000 063 255 degrees QTc Int : 392 ms Sinus bradycardia with 1st degree A-V block Abnormal ECG When compared with ECG of 12-OCT-2021 12:56, (unconfirmed) No significant change was found Confirmed by James Puga ([id number]) on 10/13/2021 12:33:03 PM Referred By: Matthew Carlin Confirmed By:Jh Puga
== END 2021-10-13 13:01 | disposition home or self-care (01) ==
LOC: EDINP 12:32 → ED 12:32 → SUATTDRO 16:42 → 2S 19:25

== ENCOUNTER 2022-02-16 09:12 | Observation (INO) ==
[2022-02-16] MEDS ORDERED: NITROGLYCERIN SL 0.4 MG/TAB TAB SL PRN (09:25)
[2022-02-16] MEDS ORDERED: ONDANSETRON INJ 2 MG/ML 2 ML VIAL IV STA (09:25)
[2022-02-16] MEDS ORDERED: ASPIRIN CHEW 324 MG PO STA (09:25)
[2022-02-16] MEDS ORDERED: MoRPHine SULFATE 4 MG/ML 1 ML CARP\\VIAL IV STA (09:25)
--- NOTE | 2022-02-16 09:35 | Emergency Department Note ---
Impression & Plan Chest pain, Abnormal EKG ED Provider Note NAME: Ayla SIEGEL AGE: 86 SEX: M : 1935 ARRIVES VIA: Walk-In INFORMANT: Patient, ED PROVIDER(S): Eleno Moe DO CHIEF COMPLAINT: Chest pain HPI: The patient is an 86-year-old male who presented to the emergency department for an evaluation of chest pain. The patient states he woke in his normal state of health this morning but started noticing chest discomfort across the anterior part of the chest. He states he feels a pressure almost as though something is sitting on his chest. The patient states that the pain goes to his right arm. He denies having any nausea or vomiting. He did describe some shortness of breath. The pain is worsened with any exertion. He denies having any fever. He denies having any lower extremity swelling or pain. He does have a history of coronary artery disease and has a history of coronary bypass at 1998. The patient states he did have a stress test over the last year which did not report any abnormality. He last saw his flight nurse about 6 months ago. He states he has been compliant with his usual outpatient medications. He also states that he took his Imdur this morning thinking it might help. ROS: See above HPI for pertinent positives & negatives. A total of 10 systems re viewed and were otherwise negative. PAST MEDICAL HISTORY: See Below PAST SURGICAL HISTORY: See Below FAMILY HISTORY: See Below SOCIAL HISTORY: See Below HOME MEDICATIONS: See Below ALLERGIES: See Below VITALS: See Below PHYSICAL EXAMINATION: GENERAL: Patient is awake alert in no acute distress patient is resting comfortably and showing no signs of anxiety EYES: The conjunctivae are clear. The pupils are round and reactive. EARS, NOSE, MOUTH AND THROAT: The nose is without any evidence of any deformity. Mucous membranes are moist. Tongue is midline. NECK: The neck is nontender and supple. RESPIRATORY: Normal respiratory effort is noted there is no evidence of wheezing rhonchi or rales CARDIOVASCULAR: Regular rate and rhythm noted there no murmurs rubs or gallops normal S1 normal S2. GASTROINTESTINAL: The abdomen is soft. Abdomen is nontender. MUSCULOSKELETAL/EXTREMITIES: There is no evidence of gross deformity full range of motion is noted in the hips and shoulders. SKIN: There is no obvious evidence of any rash. There are no petechiae, pallor or cyanosis noted. NEUROLOGIC: Patient is awake alert and oriented x3 MEDICAL DECISION MAKING: The patient is an 86-year-old male who has a history of coronary artery disease and bypass who presented to the emergency department for an evaluation of chest pain. The patient describes anterior chest pain which was exertional in nature. He initially stated that he was having this pain only today but his significant other states he has been having the pain recently but only worsened today. There is been no reported fever. The patient has no breathing difficulty. I discussed the patient's laboratory and radiographic studies with him. I also discussed the limitations of the emergency department work-up for chest pain. Ultimately given the patient's past medical history and risk factors I do feel that he would not be a good candidate for outpatient work-up at this time. He was treated with nitroglycerin and aspirin and morphine in the emergency department. His pain was significantly improved. Triage Nursing notes reviewed. Prior medical records reviewed Vital Signs: reviewed and remarkable for no significant abnormalities Differential diagnosis: Cardiac ischemia, aortic dissection, pulmonary embolism, pneumothorax, pneumonia, pericarditis, myocarditis, esophageal rupture, GERD, cholecystitis, pancreatitis, musculoskeletal, as well as other pathologies. ER treatment provided: See below Diagnostics interpreted by me: ECG: EKG was obtained in the emergency department. My interpretation is sinus rhythm at 70 bpm. First-degree AV block was noted. ST segment depressions were noted diffusely. Early transition was also noted. LVH was suggested by voltage criteria. This was compared to a tracing from October 13, 2021. No changes were noted. Cardiac Monitoring: An order was placed for continuous cardiac monitoring. The monitor shows a rate of 69 bpm with sinus rhythm. Laboratory studies: As stated above and show below. Imaging studies: See below Consultation(s): I discussed this case with Dhara who is on-call for the [facility] hospitalist group. Past Med/Surg History Medical History AAA (abdominal aortic aneurysm) CAD (coronary artery disease) Status post coronary bypass grafting, 1998, CHASE graft to LAD, free radial graft from left internal mammary artery to the left first obtuse marginal, and right internal mammary artery graft to the right coronary artery. Fall Heart disease (~1998) Hyperlipidemia Hypertension Left knee pain Lyme arthritis Lyme disease Right rib fracture Surgical History S/P CABG (coronary artery bypass graft) Social History Smoking Status: Former smoker Tobacco Type: Cigarettes Second Hand Exposure: No; Hx Alcohol Use: No Hx Substance Use: No Preferred Language: Belarusian Communication Ability: Effective Blood Bank Supervisor Required: No Beliefs That Will Affect Care: None Current Living Situation: Spouse Feels Safe at Home: Yes Assistive Devices: Denture - Upper, Denture - Lower and Glasses Allergies Allergies Allergy/AdvReac Type Severity Reaction Status Date / Time diltiazem AdvReac Severe red rash Verified 10/12/21 13:56 on chest Hydantoins AdvReac Severe CAUSES A Verified 10/12/21 13:56 SEIZURE phenytoin AdvReac Severe CAUSES A Verified 10/12/21 13:56 SEIZURE Home Meds Home Medications Medication Instructions Recorded Confirmed aspirin 325 mg tablet,delayed 325 mg PO HS 12/28/19 02/16/22 release carbamazepine 200 mg tablet 200 mg PO BID 12/28/19 02/16/22 (Tegretol) cholecalciferol (vitamin D3) 25 1,000 unit PO QAM 12/28/19 02/16/22 mcg (1,000 unit) tablet (Vitamin D3) diclofenac sodium 1 % topical gel 2 g TOPICAL QID PRN 06/02/20 02/16/22 ezetimibe 10 mg tablet (Zetia) 10 mg PO QPM 06/02/20 02/16/22 ferrous sulfate 27 mg iron tablet 27 mg PO DAILY 06/02/20 02/16/22 lisinopril 10 1 tab PO DAILY 06/02/20 02/16/22 mg-hydrochlorothiazide 12.5 mg tablet metoprolol tartrate 50 mg tablet 25 mg PO BID 06/02/20 02/16/22 (Lopressor) multivitamin 1 tab PO DAILY 06/02/20 02/16/22 rosuvastatin 40 mg tablet (Crestor) 40 mg PO QPM 06/02/20 02/16/22 amlodipine 2.5 mg tablet 2.5 mg PO DAILY 10/12/21 02/16/22 Previous Rx's Medication Instructions Recorded isosorbide mononitrate 60 mg 60 mg PO QAM #30 tab 10/13/21 tablet,extended release 24 hr Results & Data (ED) Vital Signs Vital Signs - 24 hr 02/16/22 09:16 02/16/22 09:25 02/16/22 10:18 Temperature 36.3 C L Temperature Source Temporal Artery Scan Pulse Rate 75 Pulse Rate [Apical] 69 Respiratory Rate 18 18 Respiratory Effort / Characteristics SOB on Exertion Blood Pressure 146/79 H Blood Pressure [Right Arm] 111/68 Blood Pressure Mean 101 Blood Pressure Mean [Right Arm] 82 Pulse Oximetry 96 93 Oxygen Delivery Method Room Air Room Air Sepsis Recent Fever Within 48 Hours No Sepsis New/Unexplained Change in Mental Status No Sepsis Action Taken by Nursing No Action Required Home Medications Current Medication List: was personally reviewed by me Laboratory Data Attestation: I reviewed the patient's lab results. Result diagrams: 02/16/22 09:38 02/16/22 09:38 Lab Results 02/16/22 02/16/22 02/16/22 Range/Units 09:38 09:38 09:38 WBC 8.24 (4.8-10.8) K/uL RBC 3.90 L (4.7-6.1) M/uL Hgb 13.1 L (14.0-18.0) g/dL Hct 37.7 L (42-52) % MCV 96.7 (80-100) fL MCH 33.6 (25-34) pg MCHC 34.7 (32-36) g/dL RDW Std Deviation 46.6 H (36.4-46.3) fL RDW Coeff of Ana 13.2 (11.5-14.5) % Plt Count 200 (130-400) K/uL MPV 8.9 (7.4-10.4) fL Immature Gran % (Auto) 0.1 % Neut % (Auto) 70.6 % Lymph % (Auto) 18.0 % [place] % (Auto) 6.6 % Eos % (Auto) 4.5 % Baso % (Auto) 0.2 % Neut # (Auto) 5.82 (1.4-6.5) K/uL Lymph # (Auto) 1.48 (1.2-3.4) K/uL [place] # (Auto) 0.54 (0.11-0.59) K/uL Eos # (Auto) 0.37 (0-0.5) K/uL Baso # (Auto) 0.02 (0-0.2) K/uL Immature Gran # (Auto) 0.01 (0.00-0.02) K/uL PT 10.9 (9.0-12.0) Seconds INR 1.0 (0.9-1.1) APTT 25.3 (21.0-31.0) Seconds PTT Ratio 0.9 Troponin I < 0.03 (0-0.04) ng/ml SARS-CoV-2, RNA, NAAT (NEGATIVE) 02/16/22 Range/Units 10:02 WBC (4.8-10.8) K/uL RBC (4.7-6.1) M/uL Hgb (14.0-18.0) g/dL Hct (42-52) % MCV (80-100) fL MCH (25-34) pg MCHC (32-36) g/dL RDW Std Deviation (36.4-46.3) fL RDW Coeff of Ana (11.5-14.5) % Plt Count (130-400) K/uL MPV (7.4-10.4) fL Immature Gran % (Auto) % Neut % (Auto) % Lymph % (Auto) % [place] % (Auto) % Eos % (Auto) % Baso % (Auto) % Neut # (Auto) (1.4-6.5) K/uL Lymph # (Auto) (1.2-3.4) K/uL [place] # (Auto) (0.11-0.59) K/uL Eos # (Auto) (0-0.5) K/uL Baso # (Auto) (0-0.2) K/uL Immature Gran # (Auto) (0.00-0.02) K/uL PT (9.0-12.0) Seconds INR (0.9-1.1) APTT (21.0-31.0) Seconds PTT Ratio Troponin I (0-0.04) ng/ml SARS-CoV-2, RNA, NAAT NEGATIVE (NEGATIVE) Administered Medications Discontinued Medications Aspirin (Aspirin Chew 324 Mg) 324 mg PO NOW STA Stop: 02/16/22 09:26 Last Admin: 02/16/22 09:53 Dose: 324 mg Documented by: [id number] Morphine Sulfate (Morphine Sulfate 4 Mg/Ml 1 Ml Carp\Vial) 4 mg IV NOW STA Stop: 02/16/22 09:26 Last Admin: 02/16/22 09:55 Dose: 4 mg Documented by: [id number] Ondansetron HCl (Ondansetron Inj 2 Mg/Ml 2 Ml Vial) 4 mg IV NOW STA Stop: 02/16/22 09:26 Last Admin: 02/16/22 09:55 Dose: 4 mg Documented by: [id number] Imaging Data Radiologist's Impression: Chest X-Ray 02/16/22 09:25 XR chest 1V portable HISTORY: Atypical Chest Pain COMPARISON: Chest 10/12/2021. FINDINGS: No pneumothorax. No pleural effusions. The cardiac silhouette remains mildly enlarged. There are poststernotomy changes. Diffuse interstitial thickening persists. Most pronounced within the left lower lobe. No new focal lung consolidations. No evidence for pulmonary edema. IMPRESSION: No change in the cardiomegaly and chronic interstitial thickening. ACT 112: Negative or not required by law. Electronically signed by: sIsa Funk M.D. 02/16/2022 10:10 AM Discharge Plan Visit Data Chief Complaint: Chest Pain Stated Complaint: CHEST PAIN ED Provider: Eleno Moe Discharge Problem: Chest pain, Abnormal EKG Patient Disposition: Being Evaluated by Hospitalist Forms Stand Alone Forms: My [facility] Prescriptions Prescriptions: No Action carbamazepine [Tegretol] 200 mg Tablet 200 mg PO BID RF: 0 aspirin 325 mg Tablet,Delayed Release (Dr/Ec) 325 mg PO HS RF: 0 cholecalciferol (vitamin D3) [Vitamin D3] 25 mcg (1,000 unit) Tablet 1,000 unit PO QAM RF: 0 multivitamin Tablet 1 tab PO DAILY RF: 0 metoprolol tartrate [Lopressor] 50 mg tablet 25 mg PO BID RF: 0 lisinopril-hydrochlorothiazide 10-12.5 mg tablet 1 tab PO DAILY RF: 0 ezetimibe [Zetia] 10 mg tablet 10 mg PO QPM RF: 0 rosuvastatin [Crestor] 40 mg tablet 40 mg PO QPM RF: 0 ferrous sulfate 27 mg iron Tablet 27 mg PO DAILY RF: 0 diclofenac sodium 1 % Gel 2 g TOPICAL QID PRN (Reason: Pain) RF: 0 amlodipine 2.5 mg tablet 2.5 mg PO DAILY RF: 0 isosorbide mononitrate 60 mg Tablet Extended Release 24 Hr 60 mg PO QAM Qty: 30 RF: 0 Referrals Referrals: Kenny Osborn MD [Primary Care Provider] -
[2022-02-16 09:53] LABS: Basophils # (auto) 0.02 K/uL (0-0.2); Basophils % (auto) 0.2 %; Eosinophils # (auto) 0.37 K/uL (0-0.5); Eosinophils % (auto) 4.5 %; Hematocrit (blood only) 37.7 % (42-52); Hemoglobin 13.1 g/dL (14.0-18.0); Immature Granulocytes # (auto) 0.01 K/uL (0.00-0.02); Immature Granulocytes % (auto) 0.1 %; Lymphocytes # (auto) 1.48 K/uL (1.2-3.4); Mean Corpuscular Hemoglobin 33.6 pg (25-34); Mean Corpuscular Hgb Conc 34.7 g/dL (32-36); Mean Corpuscular Volume 96.7 fL (80-100); Mean Platelet Volume 8.9 fL (7.4-10.4); Monocytes # (auto) 0.54 K/uL (0.11-0.59); Monocytes % (auto) 6.6 %; Neutrophils # (auto) 5.82 K/uL (1.4-6.5); Neutrophils % (auto) 70.6 %; Platelet Count 200 K/uL (130-400); RDW Coefficient of Variation 13.2 % (11.5-14.5); RDW Standard Deviation 46.6 fL (36.4-46.3); White Blood Count 8.24 K/uL (4.8-10.8)
[2022-02-16 10:05] LABS: Partial Thromboplastin Ratio 0.9; Partial Thromboplastin Time 25.3 Seconds (21.0-31.0); Prothrombin Time 10.9 Seconds (9.0-12.0)
--- NOTE | 2022-02-16 10:12 | XRay Report ---
XR chest 1V portable HISTORY: Atypical Chest Pain COMPARISON: Chest 10/12/2021. FINDINGS: No pneumothorax. No pleural effusions. The cardiac silhouette remains mildly enlarged. Ther e are poststernotomy changes. Diffuse interstitial thickening persists. Most pronounced within the le ft lower lobe. No new focal lung consolidations. No evidence for pulmonary edema. IMPRESSION: No change in the cardiomegaly and chronic interstitial thickening. ACT 112: Negative or not required by law. Electronically signed by: Issa Funk M.D. 02/16/2022 10:10 AM
[2022-02-16 10:22] LABS: Troponin I < 0.03 ng/ml (0-0.04)
[2022-02-16 10:58] LABS: Aspartate Aminotransferase 14 U/L (13-39); Potassium 3.6 mmol/L (3.5-5.1)
[2022-02-16 11:00] LABS: Alanine Aminotransferase 11 U/L (7-52); Albumin Globulin Ratio 1.5 (0.9-2); Albumin Level 4.4 gm/dl (3.4-5.0); Alkaline Phosphatase 90 U/L (34-104); Anion Gap 7 (3-11); BUN Creatinine Ratio 29.3 (10-20); Bilirubin,Total 0.4 mg/dl (0.2-1.0); Blood Urea Nitrogen 22 mg/dl (6-23); Calcium 9.3 mg/dl (8.5-10.1); Carbon Dioxide 30 mmol/L (21-32); Chloride 99 mmol/L (98-107); Creatinine Clr Calc Pharmacy 62.6 ml/min; Est GFR (African American) 97.6 ml/min; Est GFR (Non-African American) 84.2 ml/min; Globulin 2.9 gm/dl (2.5-4.0); Glucose 119 mg/dl (70-99(Fasting)); Lipase 22 U/L (11-82); Sodium 136 mmol/L (136-145); Total Protein 7.3 gm/dl (6.0-8.3)
--- NOTE | 2022-02-16 11:11 | History & Physical Report ---
Date of Service February 16, 2022 Assessment & Plan (1) Chest pain: Plan: Worsening issues with exertional chest pain over the past several months. Imdur was added by cardiology for symptom management which seemed to help initially but now with increasing pain, with today's episode being more severe and lasting longer than prior episodes. History of CAD s/p CABG in 1998. - Observe in PCU overnight - Trend troponin, repeat EKG in AM - Check ECHO - Consult cardiology for additional recommendations. 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 Luis. Plan of care discussed and as outlined above. Code Status: Full code DVT Prophylaxis: SubQ Heparin Alexei Dumont PA-C History of Present Illness Chief Complaint: Chest Pain Primary Care Provider: Kenny Osborn MD This is an 86 y/o male with a PMH of CAD with prior MD in 1998, s/p CABG in 1998, HTN, hyperlipidemia, AAA, epilepsy, right iliac artery dissection, hx Lyme arthritis, antiphospholipid syndrome, osteoporosis, and elevated homocysteine who presents to the ED today with worsening episodes of exertional chest pain. Reports that he started months ago with substernal chest pain and heaviness that may radiate to right > left UE with exertion. No radiation to neck, jaw, or back. This morning around 8:30 am was getting ready to leave for a trip to [place], moving around and lifting things, and started with chest heaviness and discomfort. These episodes typically improve with rest but current episode lasted longer than any of his prior episodes so he decided to come for evaluation in the ED. Pain was almost resolved by the time he got to the ED. This AM had some associated SOB, diaphoresis, which also has not been happening consistently with prior episodes. No nausea, vomiting, lightheadedness, palpitations. Has a pulse ox at home - reports no hypoxia during episodes of pain (has been checking). Does have a home BP cuff but did not check his BP this morning. Denies recent falls or trauma to the chest. No recent fevers, chills. Mild dry cough that pt attributes to sinus drainage - no change from baseline. Pt has been following with cardiology over the past several months for this exertional chest pain. Imdur was added then titrated to 60 mg in AM, 30 mg in PM with some relief initially. Per records, he is considered to be a poor candidate for cardiac cath so medications to assist with symptom management were recommended first. Currently without pain - reports relief with Morphine. Stress test 11/08 - large sized reversible inferior, inferolateral perfusion defect of moderate to severe intensity but similar to prior in 2017; abnormal stress EKG response suggestive of ischemia but also similar to prior 2017. Sub tle inferolateral hypokinesis, LVEF >70%. ECHO 10/09 - LVEF 50-55% w/ normal wall motion, RV systolic function normal, borderline LAE, right atrial size normal, mild MR, trace TR, grade 2 diastolic dysfunction. Allergies Allergy/AdvReac Type Severity Reaction Status Date / Time diltiazem AdvReac Severe red rash Verified 02/16/22 10:50 on chest Hydantoins AdvReac Severe CAUSES A Verified 02/16/22 10:50 SEIZURE phenytoin AdvReac Severe CAUSES A Verified 02/16/22 10:50 SEIZURE Home Medications Medication Instructions Recorded Confirmed Type aspirin 325 mg tablet,delayed 325 mg PO HS 12/28/19 02/16/22 History release carbamazepine 200 mg tablet 200 mg PO BID 12/28/19 02/16/22 History (Tegretol) cholecalciferol (vitamin D3) 25 1,000 unit PO QAM 12/28/19 02/16/22 History mcg (1,000 unit) tablet (Vitamin D3) ezetimibe 10 mg tablet (Zetia) 10 mg PO QPM 06/02/20 02/16/22 History ferrous sulfate 27 mg iron tablet 27 mg PO DAILY 06/02/20 02/16/22 History lisinopril 10 1 tab PO QPM 06/02/20 02/16/22 History mg-hydrochlorothiazide 12.5 mg tablet metoprolol tartrate 50 mg tablet 25 mg PO BID 06/02/20 02/16/22 History (Lopressor) multivitamin 1 tab PO DAILY 06/02/20 02/16/22 History rosuvastatin 40 mg tablet (Crestor) 40 mg PO QPM 06/02/20 02/16/22 History amlodipine 2.5 mg tablet 2.5 mg PO DAILY 10/12/21 02/16/22 History isosorbide mononitrate 60 mg 60 mg PO QAM #30 tab 10/13/21 02/16/22 Rx tablet,extended release 24 hr isosorbide mononitrate 30 mg 30 mg PO QPM 02/16/22 02/16/22 History tablet,extended release 24 hr Past Med/Surg History Medical History AAA (abdominal aortic aneurysm) Antiphospholipid syndrome CAD (coronary artery disease) Status post coronary bypass grafting, 1998, CHASE graft to LAD, free radial graft from left internal mammary artery to the left first obtuse marginal, and right internal mammary artery graft to the right coronary artery. 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 History of MD (myocardial infarction) Hyperlipidemia Hypertension Lyme arthritis Lyme disease Osteoporosis Right rib fracture Vitamin D deficiency Surgical History History of inguinal hernia repair History of vasectomy S/P CABG (coronary artery bypass graft) Family History Other Family history unknown Social History Smoking Status: Never smoker Tobacco Type: Cigarettes Second Hand Exposure: No; Hx Alcohol Use: No Hx Substance Use: No Preferred Language: Dominican Communication Ability: Effective Retail Service Technician Required: No Beliefs That Will Affect Care: None marital status: Current Living Situation: Spouse and Family How many Children do You have: 5 Feels Safe at Home: Yes Safety Concerns: Feels Safe At This Time Assistive Devices: Cane, Walker and Wheelchair Assistive Devices Comment: Pt only uses cane. Walker & w/c are his [id number]. Review of Systems Review of Systems: All systems reviewed & are unremarkable except as noted in HPI & below Constitutional: no fever and no chills Eyes: no diplopia and no worsening vision Ear, Nose, Mouth, Throat: no nasal congestion and no sore throat Respiratory: as per Subjective / HPI; no cough and no wheezing Cardiovascular: as per Subjective / HPI Gastrointestinal: no abdominal pain, no nausea, no vomiting and no diarr hea/loose stools Genitourinary: no dysuria or no hematuria Musculoskeletal: no back pain, no neck pain and no joint pain Integumentary: no yellowing of the skin Neurologic: no generalized weakness, no dizziness and no headache(s) Psychiatric: no depression and no anxiety Physical Exam Constitutional: well developed and well nourished; no acute distress Eyes: + anicteric sclerae Neck: trachea midline Respiratory: no respiratory distress and no labored breathing Auscultation: lungs clear to auscultation bilaterally; no rales, no rhonchi and no wheezes Cardiovascular: Rate/Rhythm: regular rate and regular rhythm Vessels: posterior tibial pulses present and radial pulses present Extremities: no pedal edema Gastrointestinal (Abdomen): Inspection/Auscultation: normal bowel sounds; abdomen not distended Percussion/Palpation: abdomen soft; abdomen nontender Musculoskeletal: Head/Neck/Chest: normocephalic, head atraumatic and neck supple Skin: no jaundice Neurologic: moves all extremities; no focal motor deficits and not confused Psychiatric: A+Ox3, euthymic affect Results & Data Results & Data ([facility]) Vital Signs (Past 12 Hours) Vital Signs Temp Pulse Pulse Resp BP BP Pulse Ox 02/16/22 10:18 69 18 111/68 93 02/16/22 09:16 36.3 C L 75 18 146/79 H 96 Laboratory Results Laboratory Results - last 24 hr 02/16/22 02/16/22 02/16/22 09:38 09:38 09:38 WBC 8.24 RBC 3.90 L Hgb 13.1 L Hct 37.7 L MCV 96.7 MCH 33.6 MCHC 34.7 RDW Std Deviation 46.6 H RDW Coeff of Ana 13.2 Plt Count 200 MPV 8.9 Immature Gran % (Auto) 0.1 Neut % (Auto) 70.6 Lymph % (Auto) 18.0 [place] % (Auto) 6.6 Eos % (Auto) 4.5 Baso % (Auto) 0.2 Neut # (Auto) 5.82 Lymph # (Auto) 1.48 [place] # (Auto) 0.54 Eos # (Auto) 0.37 Baso # (Auto) 0.02 Immature Gran # (Auto) 0.01 PT 10.9 INR 1.0 APTT 25.3 PTT Ratio 0.9 Sodium 136 Potassium 3.6 Chloride 99 Carbon Dioxide 30 Anion Gap 7 BUN 22 Creatinine 0.75 Est Cr Clr Drug Dosing 62.6 Est GFR ( Amer) 97.6 Est GFR (Non-Af Amer) 84.2 BUN/Creatinine Ratio 29.3 H Glucose 119 H Calcium 9.3 Total Bilirubin 0.4 AST 14 ALT 11 Alkaline Phosphatase 90 Troponin I < 0.03 Total Protein 7.3 Albumin 4.4 Globulin 2.9 Albumin/Globulin Ratio 1.5 Lipase 22 Carbamazepine SARS-CoV-2, RNA, NAAT 02/16/22 02/16/22 10:02 10:24 WBC RBC Hgb Hct MCV MCH MCHC RDW Std Deviation RDW Coeff of Ana Plt Count MPV Immature Gran % (Auto) Neut % (Auto) Lymph % (Auto) [place] % (Auto) Eos % (Auto) Baso % (Auto) Neut # (Auto) Lymph # (Auto) [place] # (Auto) Eos # (Auto) Baso # (Auto) Immature Gran # (Auto) PT INR APTT PTT Ratio Sodium Potassium Chloride Carbon Dioxide Anion Gap BUN Creatinine Est Cr Clr Drug Dosing Est GFR ( Amer) Est GFR (Non-Af Amer) BUN/Creatinine Ratio Glucose Calcium Total Bilirubin AST ALT Alkaline Phosphatase Troponin I Total Protein Albumin Globulin Albumin/Globulin Ratio Lipase Carbamazepine Pending SARS-CoV-2, RNA, NAAT NEGATIVE Diagnostic Findings Chest X-ray 02/16/22 - IMPRESSION: No change in the cardiomegaly and chronic interstitial thickening. Medications Administered Discontinued Medications Aspirin (Aspirin Chew 324 Mg) 324 mg PO NOW STA Stop: 02/16/22 09:26 Last Admin: 02/16/22 09:53 Dose: 324 mg Documented by: [id number] Morphine Sulfate (Morphine Sulfate 4 Mg/Ml 1 Ml Carp\Vial) 4 mg IV NOW STA Stop: 02/16/22 09:26 Last Admin: 02/16/22 09:55 Dose: 4 mg Documented by: [id number] Ondansetron HCl (Ondansetron Inj 2 Mg/Ml 2 Ml Vial) 4 mg IV NOW STA Stop: 02/16/22 09:26 Last Admin: 02/16/22 09:55 Dose: 4 mg Documented by: [id number] Supervising Physician Co-Signing Physician Notes Patient is an 86-year-old male with history of coronary artery disease, hypertension, hyperlipidemia and other medical problems presents with history of exertional chest pain, which he describes as pressure-like sensation, substernal, associated with shortness of breath which has been going on for past few days. Patient was thought to be a poor candidate for heart catheterization in the past secondary to peripheral artery disease and abdominal aortic aneurysm. Patient follows with [facility] cardiology as outpatient. Please review HPI for complete details of presentation. Blood work suggestive of hemoglobin 13.1, potassium 3.6, glucose 119, initial troponin negative. EKG showed sinus rhythm with first-degree AV block, nonspecific ST-T wave changes. On exam patient is moderately built and nourished, no apparent distress, normocephalic atraumatic, EOMI, normal breath sounds, clear to auscultation, S1- S2, no murmur, no pedal edema, abdomen soft, nontender, normal bowel sounds, alert, awake, oriented, grossly no focal deficits. Patient is admitted for management of chest pain rule out ACS. Continue aspirin, metoprolol, statin, lisinopril, isosorbide. Nitroglycerin as needed. Cardiology consulted. Trend cardiac enzymes, check resting echo, lipid panel, repeat EKG in the morning. May need to be added on Ranexa as not a candidate for cardiac catheterization as per cardiology and on prior records. I personally reviewed the record. Patient is interviewed and examined at bedside. Patient's care is coordinated with Catherine Dumont PA-C. Please refer to the documentation above for details of patient's presentation and for discussion of other issues. (1) CAD (coronary artery disease) Associated angina: unspecified whether angina present Coronary Disease- Associated Artery/Lesion type: unspecified vessel or lesion type [place] vs. transplanted heart: [place] heart Qualified Code(s): I25.10 - Atherosclerotic heart disease of [place] coronary artery without angina pectoris (2) Chest pain Chest pain type: unspecified Qualified Code(s): R07.9 - Chest pain, unspecified
[2022-02-16] MEDS ORDERED: ACETAMINOPHEN 325 MG TAB PO PRN (13:11)
[2022-02-16] MEDS ORDERED: ISOSORBIDE MONO EXTENDED REL 30 MG TABCR PO SCH (14:00)
--- NOTE | 2022-02-16 15:24 | Cardiology Consultation ---
Date of Consultation February 16, 2022 Assessment & Plan (1) Chest pain: (2) CAD (coronary artery disease): (3) Hypertension: (4) AAA (abdominal aortic aneurysm): Patient admitted for recurrent chest pain, concerning for crescendo angina. EKG with T wave abnormalities in inferolateral leads, but no significant change from previous EKG Initial troponin negative. Repeat pending around 5:30 PM He has a long history of underlying ischemic heart disease with remote CABG in 1998. He has had nuclear stress tests in 2016 and 2020 revealing inferolateral wall defect consistent with ischemia. Risks/benefits of caths had been discussed and ongoing med management recommended at that time. Patient reports he has responded well to isosorbide, but today he felt his symptoms were lasting longer/more severe so he came here for evaluation. Currently chest pain free. Options discussed. Recommend serial troponin. Await echo results. Will stop isosorbide and try Nitro patch to aid with nitro. May need to consider cardiac cath if his symptoms worsen or there is a significant elevation in cardiac enzymes. He is NPO in the morning pending evaluation and review of testing overnight. Case discussed with DR. Clark. Will follow. Supervising Physician Co-Signing Physician Notes Patient seen examined the bedside. Reports an episode of chest discomfort this morning after loading his car for trip to [place]. He was climbing 2 flights of stairs and carrying suitcases. He had not taken his a.m. Imdur of 60 mg. The discomfort came on and felt like a heaviness. Typically, angina lasts 15-20 minutes, however, his symptoms today lasted approximately 30 minutes and were more severe. He does not typically use sublingual nitroglycerin, rather, takes additional doses of isosorbide monohydrate to alleviate angina. Pain-free since arrival in the ER. Received a dose of IV morphine. Initial troponins undetectable. ECG stable. Preliminary review of bedside echocardiogram reveals stable, mild base lateral hypokinesis with preserved LV systolic function. PE: VSS. Gen: NAD, AAO x 3. Heart: Regular, normal S1-S2. No murmur. Lungs: Clear bilateral, no rales, rhonchi, wheeze. Extremities: No edema. Neuro: No focal deficit. A/P: Agree with above PA-C history, physical exam, assessment and plan. Continue isosorbide monohydrate as previously ordered for the time being. Trend cardiac enzymes x3 sets. As noted above, echocardiogram is stable and patient is pain-free. We will consider addition of Ranexa or transition to transdermal nitroglycerin patch to improve anginal control. We discussed the appropriateness sublingual nitroglycerin. Other cardiovascular medications to be continued as previously ordered. Patient is not an optimal candidate for cardiac catheterization due to his history of peripheral vascular disease and abdominal aortic aneurysm. Thank you for allow me to participate in the care of your patient. I will continue to follow closely during hospitalization. History of Present Illness Reason for Consultation: Chest pain; History of CAD Requesting Physician: Ms. Alexei Dumont PA-C Attending Physician: Dr. 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 ASCVD a. CAD, prior inferoseptal myocardial infarction, 02/1999 b. Status post CABG, 1998 with CHASE to LAD, free radial graft from CHASE to left 1st OM and ALLEY graft to the RCA c. 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 Hypertension 3. Hyperlipidemia 4. Abdominal aortic aneurysm 5.3 cm per duplex 05/2021- following with vascular 5. Fibrotic changes of the lungs Since the fall 2020, patient describes recurrent substernal chest "heaviness" occurring at rest or with exertion. He underwent inpatient evaluation in Sep 2021 at [facility] with echo revealing normal LV systolic function, EF 55%. He also underwent nuclear stress testing which was abnormal with inferior wall ischemia, but not overtly changed from 2017 study. Ongoing medical management recommended at that time and isosorbide was initiated and titrated from 30 to 60 to 90 mg. He reports overall this has aided his symptoms. Reports mild chest heaviness approx 3 times per week at this time, lasting about 10 minutes and resolves with rest. He reports he does not use SL nitro and has never tried it. He also reports that he awakens from sleep with substernal chest pain several times per week. He typically proceeds to watch TV for about an hour and symptoms resolve during this time. He denies associated SOB, diaphoresis, n/v wiht the chest heaviness. This morning, patient admits to rushing around his house packing coolers/bags to travel to [place] for a [employer] concert. During this time, he began to experience substernal chest heaviness with radiation down both arms. He also reported increased SOB. Symptoms were worse and more severe than his typical chest pain/chest tightness. After about 30 minutes, when symptoms did not resolve, he came to the ER for evaluation. In the ER, symptoms resolved with morphine. EKG was without acute changes. Initial troponin was negative. Repeat pending for 5:30 PM. Chest xray was without acute process. Other labs unremarkable. At time of consult, patient resting in chair comfortably. He denies recurrent chest pain or SOB. No dizziness. No recent cough, fever, chills. No orthopnea, PND or edema. Taking meds as prescribed at home. Allergies Allergy/AdvReac Type Severity Reaction Status Date / Time diltiazem AdvReac Severe red rash Verified 02/16/22 10:50 on chest Hydantoins AdvReac Severe CAUSES A Verified 02/16/22 10:50 SEIZURE phenytoin AdvReac Severe CAUSES A Verified 02/16/22 10:50 SEIZURE Home Medications Medication Instructions Recorded Confirmed Type aspirin 325 mg tablet,delayed 325 mg PO HS 12/28/19 02/16/22 History release carbamazepine 200 mg tablet 200 mg PO BID 12/28/19 02/16/22 History (Tegretol) cholecalciferol (vitamin D3) 25 1,000 unit PO QAM 12/28/19 02/16/22 History mcg (1,000 unit) tablet (Vitamin D3) ezetimibe 10 mg tablet (Zetia) 10 mg PO QPM 06/02/20 02/16/22 History ferrous sulfate 27 mg iron tablet 27 mg PO DAILY 06/02/20 02/16/22 History lisinopril 10 1 tab PO QPM 06/02/20 02/16/22 History mg-hydrochlorothiazide 12.5 mg tablet metoprolol tartrate 50 mg tablet 25 mg PO BID 06/02/20 02/16/22 History (Lopressor) multivitamin 1 tab PO DAILY 06/02/20 02/16/22 History rosuvastatin 40 mg tablet (Crestor) 40 mg PO QPM 06/02/20 02/16/22 History amlodipine 2.5 mg tablet 2.5 mg PO DAILY 10/12/21 02/16/22 History isosorbide mononitrate 60 mg 60 mg PO QAM #30 tab 10/13/21 02/16/22 Rx tablet,extended release 24 hr isosorbide mononitrate 30 mg 30 mg PO QPM 02/16/22 02/16/22 History tablet,extended release 24 hr Patient History Medical History AAA (abdominal aortic aneurysm) Antiphospholipid syndrome CAD (coronary artery disease) Status post coronary bypass grafting, 1998, CHASE graft to LAD, free radial graft from left internal mammary artery to the left first obtuse marginal, and right internal mammary artery graft to the right coronary artery. 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 History of ME (myocardial infarction) Hyperlipidemia Hypertension Lyme arthritis Lyme disease Osteoporosis Right rib fracture Vitamin D deficiency Surgical History History of inguinal hernia repair History of vasectomy S/P CABG (coronary artery bypass graft) Family History Other Family history unknown Social History Smoking Status: Never smoker Tobacco Type: Cigarettes Second Hand Exposure: No; Hx Alcohol Use: No Hx Substance Use: No Preferred Language: Lithuanian Communication Ability: Effective Stopboard Assembler Required: No Beliefs That Will Affect Care: None marital status: Current Living Situation: Spouse and Family How many Children do You have: 5 Feels Safe at Home: Yes Safety Concerns: Feels Safe At This Time Assistive Devices: Cane, Denture - Upper and Glasses Assistive Devices Comment: Pt only uses cane. Walker & w/c are his [id number]'s. Review of Systems Review of Systems: All systems reviewed & are unremarkable except as noted in HPI & below Physical Exam Constitutional: WD/WN, vitals as above Respiratory: normal respiratory effort; no labored breathing Auscultation: + crackles (faint crackles noted bilaterally (history of pulm fibrosis)) Cardiovascular: Rate/Rhythm: regular rate and regular rhythm Heart Sounds: normal S1 and normal S2; no murmur Vessels: no JVD Extremities: no edema Gastrointestinal (Abdomen): normal bowel sounds, soft, nontender, no hepatosplenomegaly Neurologic: patellar DTR's 2+ bilat, sensation intact Results & Data [facility]) Vital Signs (Past 12 Hours) Vital Signs Temp Pulse Pulse Resp BP BP Pulse Ox 02/16/22 13:30 02/16/22 13:11 36.3 C L 69 18 126/71 92 02/16/22 12:44 62 18 122/53 L 94 02/16/22 11:00 62 18 104/63 93 02/16/22 10:18 69 18 111/68 93 02/16/22 09:16 36.3 C L 75 18 146/79 H 96 Pulse Ox 02/16/22 13:30 92 02/16/22 13:11 02/16/22 12:44 02/16/22 11:00 02/16/22 10:18 02/16/22 09:16 Laboratory Results 02/16/22 02/16/22 02/16/22 Range/Units 10:24 10:02 09:38 WBC (4.8-10.8) K/uL RBC (4.7-6.1) M/uL Hgb (14.0-18.0) g/dL Hct (42-52) % MCV (80-100) fL MCH (25-34) pg MCHC (32-36) g/dL RDW Std Deviation (36.4-46.3) fL RDW Coeff of Ana (11.5-14.5) % Plt Count (130-400) K/uL MPV (7.4-10.4) fL Immature Gran % (Auto) % Neut % (Auto) % Lymph % (Auto) % Jones % (Auto) % Eos % (Auto) % Baso % (Auto) % Neut # (Auto) (1.4-6.5) K/uL Lymph # (Auto) (1.2-3.4) K/uL Jones # (Auto) (0.11-0.59) K/uL Eos # (Auto) (0-0.5) K/uL Baso # (Auto) (0-0.2) K/uL Immature Gran # (Auto) (0.00-0.02) K/uL PT (9.0-12.0) Seconds INR (0.9-1.1) APTT (21.0-31.0) Seconds PTT Ratio Sodium 136 (136-145) mmol/L Potassium 3.6 (3.5-5.1) mmol/L Chloride 99 (98-107) mmol/L Carbon Dioxide 30 (21-32) mmol/L Anion Gap 7 (3-11) BUN 22 (6-23) mg/dl Creatinine 0.75 (0.6-1.4) mg/dl Est Cr Clr Drug Dosing 62.6 ml/min Est GFR ( Amer) 97.6 ml/min Est GFR (Non-Af Amer) 84.2 ml/min BUN/Creatinine Ratio 29.3 H (10-20) Glucose 119 H (70-99(Fasting)) mg/dl Calcium 9.3 (8.5-10.1) mg/dl Total Bilirubin 0.4 (0.2-1.0) mg/dl AST 14 (13-39) U/L ALT 11 (7-52) U/L Alkaline Phosphatase 90 (34-104) U/L Troponin I < 0.03 (0-0.04) ng/ml Total Protein 7.3 (6.0-8.3) gm/dl Albumin 4.4 (3.4-5.0) gm/dl Globulin 2.9 (2.5-4.0) gm/dl Albumin/Globulin Ratio 1.5 (0.9-2) Lipase 22 (11-82) U/L Carbamazepine 7.9 (4-12) mcg/ml SARS-CoV-2, RNA, NAAT NEGATIVE (NEGATIVE) 02/16/22 02/16/22 Range/Units 09:38 09:38 WBC 8.24 (4.8-10.8) K/uL RBC 3.90 L (4.7-6.1) M/uL Hgb 13.1 L (14.0-18.0) g/dL Hct 37.7 L (42-52) % MCV 96.7 (80-100) fL MCH 33.6 (25-34) pg MCHC 34.7 (32-36) g/dL RDW Std Deviation 46.6 H (36.4-46.3) fL RDW Coeff of Ana 13.2 (11.5-14.5) % Plt Count 200 (130-400) K/uL MPV 8.9 (7.4-10.4) fL Immature Gran % (Auto) 0.1 % Neut % (Auto) 70.6 % Lymph % (Auto) 18.0 % Jones % (Auto) 6.6 % Eos % (Auto) 4.5 % Baso % (Auto) 0.2 % Neut # (Auto) 5.82 (1.4-6.5) K/uL Lymph # (Auto) 1.48 (1.2-3.4) K/uL Jones # (Auto) 0.54 (0.11-0.59) K/uL Eos # (Auto) 0.37 (0-0.5) K/uL Baso # (Auto) 0.02 (0-0.2) K/uL Immature Gran # (Auto) 0.01 (0.00-0.02) K/uL PT 10.9 (9.0-12.0) Seconds INR 1.0 (0.9-1.1) APTT 25.3 (21.0-31.0) Seconds PTT Ratio 0.9 Sodium (136-145) mmol/L Potassium (3.5-5.1) mmol/L Chloride (98-107) mmol/L Carbon Dioxide (21-32) mmol/L Anion Gap (3-11) BUN (6-23) mg/dl Creatinine (0.6-1.4) mg/dl Est Cr Clr Drug Dosing ml/min Est GFR ( Amer) ml/min Est GFR (Non-Af Amer) ml/min BUN/Creatinine Ratio (10-20) Glucose (70-99(Fasting)) mg/dl Calcium (8.5-10.1) mg/dl Total Bilirubin (0.2-1.0) mg/dl AST (13-39) U/L ALT (7-52) U/L Alkaline Phosphatase (34-104) U/L Troponin I (0-0.04) ng/ml Total Protein (6.0-8.3) gm/dl Albumin (3.4-5.0) gm/dl Globulin (2.5-4.0) gm/dl Albumin/Globulin Ratio (0.9-2) Lipase (11-82) U/L Carbamazepine (4-12) mcg/ml SARS-CoV-2, RNA, NAAT (NEGATIVE) Diagnostic Findings Telemetry reviewed: NSR with heart rates around 60-70 bpm EKG on admission reviewed: Sinus rhythm with 1st degree A-V block ST & T wave abnormality, consider inferolateral ischemia Compared to prior EKG's, no significant changes noted. Chest xray report reviewed IMPRESSION: No change in the cardiomegaly and chronic interstitial thickening. Echo report reviewed dated 09/2021: LV is normal in size. LV wall motion is normal. LVEF 50-55% RV systolic function is normal. Borderline LA enlargement. RA size is normal. Mild MR. Trace TR Diastolic dysfunction, grade II diastolic dysfunction. Nuclear Stress test 11/08 - large sized reversible inferior, inferolateral perfusion defect of moderate to severe intensity but similar to prior in 2017; abnormal stress EKG response suggestive of ischemia but also similar to prior 2017. Subtle inferolateral hypokinesis, LVEF >70%. Medications Administered Current Inpatient Medications Acetaminophen (Acetaminophen 325 Mg Tab) 650 mg PO Q4H PRN PRN Reason: Pain or Fever Stop: 03/18/22 13:10 Amlodipine Besylate (Amlodipine Besylate 5 Mg Tab) 2.5 mg PO DAILY DIANA Stop: 03/19/22 08:59 Aspirin (Aspirin 325 Mg Ectab) 325 mg PO HS DIANA Stop: 03/19/22 20:59 Carbamazepine (Carbamazepine 200 Mg Tablet) 200 mg PO BID DIANA Stop: 03/18/22 20:59 Ezetimibe (Ezetimibe 10 Mg Tablet) 10 mg PO QPM DIANA Stop: 03/18/22 20:59 Lisinopril/HCTZ (Lisinopril/Hctz 10/12.5mg Tab) 1 tab PO QPM DIANA Stop: 03/18/22 20:59 Heparin Sodium (Porcine) (Heparin Sod 5,000 Unit/0.5 Ml Vial) 5,000 units SQ Q12 DIANA Stop: 03/18/22 20:59 Isosorbide Mononitrate (Isosorbide Jones Extended Rel 30 Mg Tabcr) 30 mg PO Q24H DIANA Stop: 03/18/22 13:59 Last Admin: 02/16/22 16:10 Dose: 30 mg Documented by: Isosorbide Mononitrate (Isosorbide Jones Extended Rel 60 Mg Tabcr) 60 mg PO QAM DIANA Stop: 03/19/22 08:59 Metoprolol Tartrate (Metoprolol Tartrate 25 Mg Tab) 25 mg PO BID DIANA Stop: 03/18/22 20:59 Multivitamins (Multivitamin Tab) 1 tab PO DAILY DIANA Stop: 03/19/22 08:59 Nitroglycerin (Nitroglycerin Sl 0.4 Mg/Tab Tab) 0.4 mg SL UD PRN PRN Reason: Chest Pain Stop: 03/18/22 09:24 Rosuvastatin Calcium (Rosuvastatin Calcium 20 Mg Tab) 40 mg PO QPM DIANA Stop: 03/18/22 20:59 Vitamin D (Cholecalciferol 1,000 Units 25 Mcg Tab) 1,000 units PO QAM DIANA Stop: 03/19/22 08:59 (1) CAD (coronary artery disease) Associated angina: unspecified whether angina present Coronary Disease- Associated Artery/Lesion type: unspecified vessel or lesion type [place] vs. transplanted heart: [place] heart Qualified Code(s): I25.10 - Atherosclerotic heart disease of [place] coronary artery without angina pectoris (2) Chest pain Chest pain type: unspecified Qualified Code(s): R07.9 - Chest pain, unspecified
[2022-02-16] MEDS: carBAMazepine 200 MG TABLET PO SCH (20:16)
[2022-02-16] MEDS: METOPROLOL TARTRATE 25 MG TAB PO SCH (20:17)
[2022-02-16] MEDS: HEPARIN SOD 5,000 UNIT/0.5 ML VIAL SQ SCH (20:49)
[2022-02-16] MEDS ORDERED: ROSUVASTATIN CALCIUM 20 MG TAB PO SCH (21:00)
[2022-02-16] MEDS ORDERED: EZETIMIBE 10 MG TABLET PO SCH (21:00)
[2022-02-16] MEDS ORDERED: LISINOPRIL/HCTZ 10/12.5MG TAB PO SCH (21:00)
--- NOTE | 2022-02-16 22:07 | Electrocardiogram Report ---
Test Reason : Blood Pressure : / mmHG Vent. Rate : 070 BPM Atrial Rate : 070 BPM P-R Int : 270 ms QRS Dur : 098 ms QT Int : 386 ms P-R-T Axes : 010 052 240 degrees QTc Int : 416 ms Sinus rhythm with 1st degree A-V block Abnormal ECG When compared with ECG of 13-OCT-2021 06:03, T wave inversion less evident in Inferior leads T wave inversion less evident in Anterior leads Confirmed by Chaitanya Manzano ([id number]) on 02/16/2022 10:07:27 PM Referred By: REFERRED SELF Confirmed By:Chaitanya Manzano
[2022-02-17 01:33] LABS: Basophils # (auto) 0.01 K/uL (0-0.2); Basophils % (auto) 0.2 %; Eosinophils # (auto) 0.45 K/uL (0-0.5); Eosinophils % (auto) 7.5 %; Hematocrit (blood only) 34.6 % (42-52); Immature Granulocytes # (auto) 0.01 K/uL (0.00-0.02); Immature Granulocytes % (auto) 0.2 %; Lymphocytes % (auto) 14.9 %; Mean Corpuscular Hemoglobin 33.6 pg (25-34); Mean Corpuscular Hgb Conc 34.7 g/dL (32-36); Mean Corpuscular Volume 96.9 fL (80-100); Mean Platelet Volume 8.6 fL (7.4-10.4); Monocytes # (auto) 0.54 K/uL (0.11-0.59); Neutrophils # (auto) 4.12 K/uL (1.4-6.5); Neutrophils % (auto) 68.2 %; Platelet Count 168 K/uL (130-400); RDW Coefficient of Variation 13.2 % (11.5-14.5); RDW Standard Deviation 46.5 fL (36.4-46.3); Red Blood Count 3.57 M/uL (4.7-6.1); White Blood Count 6.03 K/uL (4.8-10.8)
[2022-02-17 01:56] LABS: BUN Creatinine Ratio 22.4 (10-20); Calcium 8.8 mg/dl (8.5-10.1); Chol HDL Ratio 2.7 (0-5); Creatinine Clr Calc Pharmacy 60.6 ml/min; Est GFR (African American) 97.1 ml/min; Est GFR (Non-African American) 83.8 ml/min; Potassium 3.8 mmol/L (3.5-5.1)
[2022-02-17 06:32] LABS: Estimated Average Glucose 140 mg/dl; Hemoglobin A1C 6.5 % (4.5-5.6)
[2022-02-17] MEDS: HEPARIN SOD 5,000 UNIT/0.5 ML VIAL SQ SCH (08:35)
[2022-02-17] MEDS: METOPROLOL TARTRATE 25 MG TAB PO SCH (08:35)
[2022-02-17] MEDS: carBAMazepine 200 MG TABLET PO SCH (08:35)
[2022-02-17] MEDS ORDERED: NON-FORMULARY MEDICATION (Ferrous Sulfate 27 mg iron Tablet) PO SCH (09:00)
[2022-02-17] MEDS ORDERED: MULTIVITAMIN TAB PO SCH (09:00)
[2022-02-17] MEDS ORDERED: amLODIPine BESYLATE 5 MG TAB PO SCH (09:00)
[2022-02-17] MEDS ORDERED: ISOSORBIDE MONO EXTENDED REL 60 MG TABCR PO SCH ×2 (09:00→14:15)
[2022-02-17] MEDS ORDERED: CHOLECALCIFEROL 1,000 UNITS 25 MCG TAB PO SCH (09:00)
[2022-02-17] MEDS ORDERED: CONSULT PHARMACY STA (10:03)
--- NOTE | 2022-02-17 11:50 | Cardiology Progress Note ---
Date of Service February 17, 2022 Assessment & Plan (1) CAD (coronary artery disease): (2) Hypertension: (3) AAA (abdominal aortic aneurysm): Plan: 86-year-old patient with complex cardiovascular disease as described above admitted with episode of angina after strenuous activity 02/16/2022. Cardiac enzymes are negative. Echocardiogram is stable. Anginal pattern not significantly changed. Function opacity remains stable. We discussed possible transition to Ranexa, however, patient cannot take medication due to his prescription of Tegretol for treatment of seizure disorder. I reviewed the properties of sublingual nitroglycerin for episodes of angina. Currently does not possess a prescription for sublingual nitro. We will provide him with a prescription at discharge. Currently he is chest pain-free. He will continue isosorbide monohydrate 60 mg in the morning, however, will titrate his afternoon dose to 60 mg as well. If this does not improve his anginal symptoms. Consider transition to transdermal nitroglycerin patch. We discussed the importance of avoiding activities known to induce angina. Also instructed him to take his isosorbide in the morning prior to beginning any of his daily chores/activities. No further inpatient cardiac testing or intervention at this time. Close cardiology follow-up scheduled for cardiology follow-up 02/21/2022. Admission and Anticipated Discharge Date Admission Date: February 16, 2022 Subjective Patient seen and examined the bedside. Reports recurrent episode of chest discomfort this morning prior to taking isosorbide monohydrate. This is not unusual for him. Typically experiences chest discomfort approximately 2 mornings per week. As previously noted, patient does not use sublingual nitroglycerin nor does have a prescription for sublingual nitroglycerin currently. His troponins are undetectable. Echocardiogram stable and unchanged when compared to previous. Telemetry reveals sinus rhythm in the 60s. No dysrhythmias. Review of Systems Review of Systems: All systems reviewed & are unremarkable except as noted in Subjective Physical Exam Constitutional: well developed and well nourished; no acute distress Respiratory: normal respiratory effort; no respiratory distress, no labored breathing and no retractions Auscultation: lungs clear to auscultation bilaterally; no crackles, no rales, no rhonchi and no wheezes Cardiovascular: Rate/Rhythm: regular rate and regular rhythm Heart Sounds: normal S1 and normal S2; no murmur Vessels: no JVD and no carotid bruit Extremities: no edema Gastrointestinal (Abdomen): Inspection/Auscultation: abdomen normal to inspection and normal bowel sounds; abdomen not distended Percussion/Palpation: + abdomen rigid; abdomen nontender, no guarding and + abdomen not soft Neurologic: CN's II-XI intact bilaterally and moves all extremities; no focal motor deficits Speech / Cognition: normal speech Motor/Sensory: no tremor Psychiatric: A+Ox3, euthymic affect Results & Data ([facility]) Vital Signs (Past 12 Hours) Vital Signs Temp Pulse Resp BP Pulse Ox 02/17/22 11:32 37.3 C 80 18 94/51 L 94 02/17/22 07:08 36.9 C 60 18 116/69 92 02/17/22 04:28 36.9 C 71 18 130/69 94 (1) CAD (coronary artery disease) Associated angina: with stable angina Coronary Disease-Associated Artery/Lesion type: unspecified vessel or lesion type [place] vs. transplanted heart: [place] heart Qualified Code(s): I25.118 - Atherosclerotic heart disease of [place] coronary artery with other forms of angina pectoris
--- NOTE | 2022-02-17 14:38 | Discharge Summary ---
Date of Service February 17, 2022 Admission HPI Per Admitting Provider Chief Complaint: Chest Pain Primary Care Provider: Kenny Osborn MD This is an 86 y/o male with a PMH of CAD with prior UT in 1998, s/p CABG in 1998, HTN, hyperlipidemia, AAA, epilepsy, right iliac artery dissection, hx Lyme arthritis, antiphospholipid syndrome, osteoporosis, and elevated homocysteine who presents to the ED today with worsening episodes of exertional chest pain. Reports that he started months ago with substernal chest pain and heaviness that may radiate to right > left UE with exertion. No radiation to neck, jaw, or back. This morning around 8:30 am was getting ready to leave for a trip to [place], moving around and lifting things, and started with chest heaviness and discomfort. These episodes typically improve with rest but current episode lasted longer than any of his prior episodes so he decided to come for evaluation in the ED. Pain was almost resolved by the time he got to the ED. This AM had some associated SOB, diaphoresis, which also has not been happening consistently with prior episodes. No nausea, vomiting, lightheadedness, palpitations. Has a pulse ox at home - reports no hypoxia during episodes of pain (has been checking). Does have a home BP cuff but did not check his BP this morning. Denies recent falls or trauma to the chest. No recent fevers, chills. Mild dry cough that pt attributes to sinus drainage - no change from baseline. Pt has been following with cardiology over the past several months for this exertional chest pain. Imdur was added then titrated to 60 mg in AM, 30 mg in PM with some relief initially. Per records, he is considered to be a poor candidate for cardiac cath so medications to assist with symptom management were recommended first. Currently without pain - reports relief with Morphine. Stress test 11/08 - large sized reversible inferior, inferolateral perfusion defect of moderate to severe intensity but similar to prior in 2017; abnormal stress EKG response suggestive of ischemia but also similar to prior 2017. Subtle inferolateral hypokinesis, LVEF >70%. ECHO 10/09 - LVEF 50-55% w/ normal wall motion, RV systolic function normal, borderline LAE, right atrial size normal, mild MR, trace TR, grade 2 diastolic dysfunction. Admission Exam Per Admitting Provider Constitutional: well developed and well nourished; no acute distress Eyes: + anicteric sclerae Neck: trachea midline Respiratory: no respiratory distress and no labored breathing Auscultation: lungs clear to auscultation bilaterally; no rales, no rhonchi and no wheezes Cardiovascular: Rate/Rhythm: regular rate and regular rhythm Vessels: posterior tibial pulses present and radial pulses present Extremities: no pedal edema Gastrointestinal (Abdomen): Inspection/Auscultation: normal bowel sounds; abdomen not distended Percussion/Palpation: abdomen soft; abdomen nontender Musculoskeletal: Head/Neck/Chest: normocephalic, head atraumatic and neck supple Skin: no jaundice Neurologic: moves all extremities; no focal motor deficits and not confused Psychiatric: A+Ox3, euthymic affect Principal Diagnosis Stable angina Discharge Exam General: Sitting comfortably in chair, not in distress, on room air HEENT: EOMI, ISABEL, MMM Chest: Clear breath sounds bilaterally, no wheezes or crackles CVS: Regular rate and rhythm, normal heart sounds, no murmur Abdomen: Soft, non tender, not distended, normal bowel sounds Neuro: Awake, alert, oriented, conversing well, non focal Extremities: No cyanosis, clubbing or edema Discharge Data Allergies Allergy/AdvReac Type Severity Reaction Status Date / Time diltiazem AdvReac Severe red rash Verified 02/16/22 10:50 on chest Hydantoins AdvReac Severe CAUSES A Verified 02/16/22 10:50 SEIZURE phenytoin AdvReac Severe CAUSES A Verified 02/16/22 10:50 SEIZURE Consultations 02/16/22 10:53 ED Decision to Admit Stat 02/16/22 12:56 Consult Cardiology Routine Hospital Course (1) Chest pain: (2) CAD (coronary artery disease): (3) Hyperlipidemia: (4) 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 Echo with no significant change from before. Remains chest pain free here. Seen by cardiology and recommendations noted- Increase afternoon imdur dose to 60 mg while continuing same morning dose- if fails try transdermal nitroglycerin patch. Avoid activities known to induce angina. SL nitroglycerin prn. Can't take ranexa due to being on tegretol for seizure disorder. Cardio did not recommend any further inpatient cardiac testing or intervention and cleared for discharge. OP appointment for 02/21. I spoke with Dr Clark prior to disch arge. HTN- continue norvasc, lisinopril, lopresor, imdur Seizure disorder- continue tegretol CAD s/p CABG 1998- continue aspirin, statin, betablocker, nitrates HLD- continue statin Total Time Total Time Spent Total Time Spent (In Minutes): 35 Discharge Plan Discharge Items Patient Disposition: Home - Self-Care Reason For Visit: CHEST PAIN Discharge Diagnosis: Stable angina Activity: As commented below Activity Comment: Avoid activities known to induce angina Non-emergency contact: Primary Care Provider and Game Tester Call non-emergency contact if: you have any medication questions, your symptoms worsen and your pain is concerning for you Follow-up/Referrals: Kenny Osborn MD [Primary Care Provider] - (Date & Time 02/21/2022 11:20 AM Provider Kenny Osborn MD [facility] ) Diet: Heart Healthy Add Attending Provider Instructions: You were here for anginal symptoms. You do not have a heart attack currently. Cardiology recommended increasing afternoon dose of imdur to 60 mg from 30 mg. Take your morning imdur prior to initiation of daily chores/activities. If this does not help, they will try transdermal nitroglycerin patch Avoid activities known to induce angina You can take sublingual nitro as needed for chest pain Follow up with cardiology in the office on 02/21/22 Pending Studies at Discharge: No Stand-Alone Forms: My [facility] [employer], Smoking Cessation Medications and DC Order Prescriptions: New nitroglycerin [Nitrostat] 0.4 mg Tablet, Sublingual 0.4 mg sublingual UD PRN (Reason: chest pain) Qty: 30 RF: 0 Continued carbamazepine [Tegretol] 200 mg Tablet 200 mg PO BID RF: 0 aspirin 325 mg Tablet,Delayed Release (Dr/Ec) 325 mg PO HS RF: 0 cholecalciferol (vitamin D3) [Vitamin D3] 25 mcg (1,000 unit) Tablet 1,000 unit PO QAM RF: 0 multivitamin Tablet 1 tab PO DAILY RF: 0 metoprolol tartrate [Lopressor] 50 mg tablet 25 mg PO BID RF: 0 lisinopril-hydrochlorothiazide 10-12.5 mg tablet 1 tab PO QPM RF: 0 ezetimibe [Zetia] 10 mg tablet 10 mg PO QPM RF: 0 rosuvastatin [Crestor] 40 mg tablet 40 mg PO QPM RF: 0 ferrous sulfate 27 mg iron Tablet 27 mg PO DAILY RF: 0 amlodipine 2.5 mg tablet 2.5 mg PO DAILY RF: 0 isosorbide mononitrate 60 mg Tablet Extended Release 24 Hr 60 mg PO QAM Qty: 30 RF: 0 Changed isosorbide mononitrate 30 mg tablet extended release 24 hr 60 mg PO QPM Qty: 0 RF: 0 Discharge Orders: Discharge Order (Routine); Ordered 02/17/22 Ordered By: Blair Nazario/Other Patient Handouts: A1C, Eating Heart-Healthy Foods Admission Data Admit Date/Time: 02/16/22 11:14 Attending Provider: Blair Rees Admit Provider: Jalil Luis Primary Care Provider: Kenny Osborn Other Providers: Jalil Luis ; Lalo Clark
--- NOTE | 2022-02-17 14:51 | Electrocardiogram Report ---
Test Reason : Blood Pressure : / mmHG Vent. Rate : 068 BPM Atrial Rate : 068 BPM P-R Int : 274 ms QRS Dur : 092 ms QT Int : 382 ms P-R-T Axes : 010 038 203 degrees QTc Int : 406 ms Sinus rhythm with 1st degree A-V block Abnormal ECG When compared with ECG of 16-FEB-2022 09:27, No significant change was found Confirmed by Eleno Robert ([id number]) on 02/17/2022 2:51:01 PM Referred By: REFERRED SELF Confirmed By:Eleno Robert
[2022-02-17] MEDS ORDERED: ASPIRIN 325 MG ECTAB PO SCH (21:00)
== END 2022-02-17 16:05 | disposition home or self-care (01) ==
LOC: 2S 09:12 → ED 09:12 → SUATTDRO 11:14 → 2S 12:52
DX: R07.89 Other chest pain; I25.2 Old myocardial infarction; Z79.899 Other long term (current) drug therapy; Z79.82 Long term (current) use of aspirin; E78.5 Hyperlipidemia, unspecified; I10 Essential (primary) hypertension; I71.4 Abdominal aortic aneurysm, without rupture; G40.309 Generalized idiopathic epilepsy and epileptic syndromes, not intractable, without status epilepticus; I25.10 Atherosclerotic heart disease of native coronary artery without angina pectoris; Z95.1 Presence of aortocoronary bypass graft

== ENCOUNTER 2022-03-31 16:18 | Inpatient (IN) ==
[2022-03-31] MEDS ORDERED: NITROGLYCERIN SL 0.4 MG/TAB TAB SL STA (16:51)
--- NOTE | 2022-03-31 17:12 | XRay Report ---
XR chest 1V portable HISTORY: Atypical Chest Pain COMPARISON: Chest 02/16/2022. FINDINGS: There are low lung volumes. The heart is mildly enlarged. There are poststernotomy changes. No pleural effusions. No pneumothorax. Diffuse interstitial thickening persists. This is most pronou nced within the left lower lobe. Otherwise, no new focal lung consolidations to suggest pneumonia. No evidence for pulmonary edema. IMPRESSION: No change in the mild cardiomegaly and chronic interstitial thickening. ACT 112: Negative or not required by law. Electronically signed by: Issa Funk M.D. 03/31/2022 5:11 PM
--- NOTE | 2022-03-31 17:14 | Emergency Department Note ---
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 Took a nitro with minimal improvement earlier. Pressures persisted throughout the day and took additional nitro later as well as took both doses of his Imdur today. Reports some persistence and slight worsening this afternoon with 6 out of 10 pain prompting EMS activation. Patient was given additional nitro by them. Upon arrival patient had initial EKG done and his pain began to improve signifi cantly. Denies associated nausea or abdominal pain. Denies any trauma. Denies any syncope. Patient states he did receive additional full dose aspirin from EMS. Patient relates has been having some angina issues over the last several months and was admitted several months ago. Patient initially 2 out of 10 pain on my evaluation. REVIEW OF SYSTEMS: A total of 10 review of systems was obtained and negative except as stated above in the HPI. PAST MEDICAL HISTORY: As noted above MEDICATIONS: Reviewed home medications SOCIAL HISTORY: Lives at home with PHYSICAL EXAM: GENERAL: alert and oriented in no acute distress on stretcher Head: normocephalic and atraumatic EYES: No injection, discharge or icterus. NECK: Trachea midline. Supple. ENT: Mucous membranes pink and moist. LUNGS: Airway patent. No retractions. Breath sounds clear with good air entry bilaterally. HEART: Regular rate and rhythm. No chest wall tenderness ABDOMEN: Soft and non-tender, without guarding or rebound. SKIN: Acyanotic, warm, dry, without rashes EXTREMITIES: Without swelling, tenderness or deformity NEUROLOGICAL: No focal deficits. No aphasia. No facial droop or slurred speech. Normal strength and tone in the extremities. Sensation to gross touch normal. Ambulatory. EK bpm sinus rhythm with first-degree AV block no PVC or PAC noted. No continuous ST segment elevation although slightly questionable in aVR. Some inferior T wave inversions and significant T wave inversions with ST depression across the precordium. QTc 406. EK bpm sinus rhythm with some artifactual baseline artifact with PVC noted. Improving to inversions and ST depression across the precordium compared to previous. Still with some questionable aVR elevation. No other ST segment elevation noted CONTINUOUS CARDIAC MONITORING: was ordered and showed a heart rate of 70s-80s bpm in normal sinus rhythm first-degree AV block Patient's laboratory studies and imaging reviewed. Differential includes Cardiac ischemia, aortic dissection, pulmonary embolism, pneumothorax, pneumonia, pericarditis, myocarditis, esophageal rupture, GERD, cholecystitis, pancreatitis, musculoskeletal, as well as other pathologies. IMPRESSION/MEDICAL DECISION MAKING: Patient initially 6 out of 10 chest pain improved rapidly to 2 out of 10 upon my evaluation with improving EKG although significant T wave and ST changes noted without STEMI. Patient given additional dose of nitro here now with evolution of symptoms and resting comfortably in bed. Doubt this represents PE given his reported symptoms. No abdominal pain and doubt acute AAA rupture or dissection. Blood work here is reassuring without troponin elevation. Again EKG changes are concerning and patient does have a history of angina. Persistent symptoms today only improved after multiple doses of nitro as well as his regular Imdur. Given the EKG changes although initial troponin is normal, will recommend further evaluation here at the hospital. Discussed briefly with on-call cardiology and heparin drip will be initiated with further cardiac monitoring here. Hospitalist contacted. DIAGNOSIS: Chest pain, unstable angina DISPOSITION: Hospitalist will evaluate Patient was agreeable with this plan. Critical Care I have personally spent 33 minutes of critical care time in the direct management of this patient. This includes bedside care, interpretation of diagnostic studies, and testing, discussion with consultants, patient, and family members, and other required patient management activities. These 33 min utes is in excess of all separately billable procedures. Past Med/Surg History Medical History AAA (abdominal aortic aneurysm) Antiphospholipid syndrome CAD (coronary artery disease) Status post coronary bypass grafting, 1998, CHASE graft to LAD, free radial graft from left internal mammary artery to the left first obtuse marginal, and right internal mammary artery graft to the right coronary artery. 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 History of NC (myocardial infarction) Hyperlipidemia Hypertension Lyme arthritis Lyme disease Osteoporosis Right rib fracture Vitamin D deficiency Surgical History History of inguinal hernia repair History of vasectomy S/P CABG (coronary artery bypass graft) Family History Other Family history unknown Social History Smoking Status: Never smoker Tobacco Type: Cigarettes Second Hand Exposure: No; Hx Alcohol Use: No Hx Substance Use: No Preferred Language: Maori Communication Ability: Effective Games Manager Required: No Beliefs That Will Affect Care: None marital status: Current Living Situation: Spouse and Family How many Children do You have: 5 Feels Safe at Home: Yes Assistive Devices: Cane, Denture - Upper and Glasses Allergies Allergies Allergy/AdvReac Type Severity Reaction Status Date / Time diltiazem AdvReac Severe red rash Verified 02/16/22 10:50 on chest Hydantoins AdvReac Severe CAUSES A Verified 02/16/22 10:50 SEIZURE phenytoin AdvReac Severe CAUSES A Verified 02/16/22 10:50 SEIZURE Home Meds Home Medications Medication Instructions Recorded Confirmed aspirin 325 mg tablet,delayed 325 mg PO HS 12/28/19 02/16/22 release carbamazepine 200 mg tablet 200 mg PO BID 12/28/19 02/16/22 (Tegretol) cholecalciferol (vitamin D3) 25 1,000 unit PO QAM 12/28/19 02/16/22 mcg (1,000 unit) tablet (Vitamin D3) ezetimibe 10 mg tablet (Zetia) 10 mg PO QPM 06/02/20 02/16/22 ferrous sulfate 27 mg iron tablet 27 mg PO DAILY 06/02/20 02/16/22 lisinopril 10 1 tab PO QPM 06/02/20 02/16/22 mg-hydrochlorothiazide 12.5 mg tablet metoprolol tartrate 50 mg tablet 25 mg PO BID 06/02/20 02/16/22 (Lopressor) multivitamin 1 tab PO DAILY 06/02/20 02/16/22 rosuvastatin 40 mg tablet (Crestor) 40 mg PO QPM 06/02/20 02/16/22 amlodipine 2.5 mg tablet 2.5 mg PO DAILY 10/12/21 02/16/22 Previous Rx's Medication Instructions Recorded isosorbide mononitrate 60 mg 60 mg PO QAM #30 tab 10/13/21 tablet,extended release 24 hr isosorbide mononitrate 30 mg 60 mg PO QPM #0 tab 02/17/22 tablet,extended release 24 hr nitroglycerin 0.4 mg sublingual 0.4 mg SUBLINGUAL UD PRN #30 tab 02/17/22 tablet (Nitrostat) Results & Data (ED) Vital Signs Vital Signs - 24 hr 03/31/22 16:39 03/31/22 17:10 Temperature 36.8 C Temperature Source Oral Pulse Rate 88 86 Respiratory Rate 18 17 Respiratory Effort / Characteristics Non-Labored Respiratory Depth Normal Blood Pressure 139/78 Blood Pressure Mean 98 Blood Pressure Position Semi-fowlers Pulse Oximetry 95 95 Oxygen Delivery Method Room Air Room Air Sepsis Recent Fever Within 48 Hours No Sepsis New/Unexplained Change in Mental Status No Sepsis Action Taken by Nursing No Action Required Laboratory Data Result diagrams: 03/31/22 16:20 03/31/22 16:20 Lab Results 03/31/22 03/31/22 03/31/22 Range/Units 16:20 16:20 16:20 WBC 7.75 (4.8-10.8) K/uL RBC 3.97 L (4.7-6.1) M/uL Hgb 13.2 L (14.0-18.0) g/dL Hct 39.3 L (42-52) % MCV 99.0 (80-100) fL MCH 33.2 (25-34) pg MCHC 33.6 (32-36) g/dL RDW Std Deviation 45.9 (36.4-46.3) fL RDW Coeff of Ana 12.6 (11.5-14.5) % Plt Count 234 (130-400) K/uL MPV 9.2 (7.4-10.4) fL Immature Gran % (Auto) 0.0 % Neut % (Auto) 70.7 % Lymph % (Auto) 18.6 % Ness % (Auto) 7.2 % Eos % (Auto) 3.4 % Baso % (Auto) 0.1 % Neut # (Auto) 5.48 (1.4-6.5) K/uL Lymph # (Auto) 1.44 (1.2-3.4) K/uL Ness # (Auto) 0.56 (0.11-0.59) K/uL Eos # (Auto) 0.26 (0-0.5) K/uL Baso # (Auto) 0.01 (0-0.2) K/uL Immature Gran # (Auto) 0.00 (0.00-0.02) K/uL PT 10.9 (9.0-12.0) Seconds INR 1.0 (0.9-1.1) APTT 27.3 (21.0-31.0) Seconds PTT Ratio 1.0 Sodium (136-145) mmol/L Potassium (3.5-5.1) mmol/L Chloride (98-107) mmol/L Carbon Dioxide (21-32) mmol/L Anion Gap (3-11) BUN (6-23) mg/dl Creatinine (0.6-1.4) mg/dl Est Cr Clr Drug Dosing ml/min Est GFR ( Amer) ml/min Est GFR (Non-Af Amer) ml/min BUN/Creatinine Ratio (10-20) Glucose (70-99(Fasting)) mg/dl Calcium (8.5-10.1) mg/dl Total Bilirubin (0.2-1.0) mg/dl AST (13-39) U/L ALT (7-52) U/L Alkaline Phosphatase (34-104) U/L Troponin I High Sens 10.5 (0-20) pg/ml Total Protein (6.0-8.3) gm/dl Albumin (3.4-5.0) gm/dl Globulin (2.5-4.0) gm/dl Albumin/Globulin Ratio (0.9-2) Lipase (11-82) U/L SARS-CoV-2, RNA, NAAT (NEGATIVE) 03/31/22 03/31/22 Range/Units 16:20 17:15 WBC (4.8-10.8) K/uL RBC (4.7-6.1) M/uL Hgb (14.0-18.0) g/dL Hct (42-52) % MCV (80-100) fL MCH (25-34) pg MCHC (32-36) g/dL RDW Std Deviation (36.4-46.3) fL RDW Coeff of Ana (11.5-14.5) % Plt Count (130-400) K/uL MPV (7.4-10.4) fL Immature Gran % (Auto) % Neut % (Auto) % Lymph % (Auto) % Ness % (Auto) % Eos % (Auto) % Baso % (Auto) % Neut # (Auto) (1.4-6.5) K/uL Lymph # (Auto) (1.2-3.4) K/uL Ness # (Auto) (0.11-0.59) K/uL Eos # (Auto) (0-0.5) K/uL Baso # (Auto) (0-0.2) K/uL Immature Gran # (Auto) (0.00-0.02) K/uL PT (9.0-12.0) Seconds INR (0.9-1.1) APTT (21.0-31.0) Seconds PTT Ratio Sodium 138 (136-145) mmol/L Potassium 3.8 (3.5-5.1) mmol/L Chloride 99 (98-107) mmol/L Carbon Dioxide 30 (21-32) mmol/L Anion Gap 9 (3-11) BUN 14 (6-23) mg/dl Creatinine 0.71 (0.6-1.4) mg/dl Est Cr Clr Drug Dosing 72.4 ml/min Est GFR ( Amer) 99.9 ml/min Est GFR (Non-Af Amer) 86.2 ml/min BUN/Creatinine Ratio 19.7 (10-20) Glucose 95 (70-99(Fasting)) mg/dl Calcium 9.6 (8.5-10.1) mg/dl Total Bilirubin 0.5 (0.2-1.0) mg/dl AST 19 (13-39) U/L ALT 14 (7-52) U/L Alkaline Phosphatase 91 (34-104) U/L Troponin I High Sens (0-20) pg/ml Total Protein 7.1 (6.0-8.3) gm/dl Albumin 4.6 (3.4-5.0) gm/dl Globulin 2.5 (2.5-4.0) gm/dl Albumin/Globulin Ratio 1.8 (0.9-2) Lipase 17 (11-82) U/L SARS-CoV-2, RNA, NAAT NEGATIVE (NEGATIVE) Administered Medications Discontinued Medications Nitroglycerin (Nitroglycerin Sl 0.4 Mg/Tab Tab) 0.4 mg SL NOW STA Stop: 03/31/22 16:52 Last Admin: 03/31/22 17:01 Dose: 0.4 mg Documented by: [id number] Imaging Data Radiologist's Impression: Chest X-Ray 03/31/22 16:51 XR chest 1V portable HISTORY: Atypical Chest Pain COMPARISON: Chest 02/16/2022. FINDINGS: There are low lung volumes. The heart is mildly enlarged. There are poststernotomy changes. No pleural effusions. No pneumothorax. Diffuse interstitial thickening persists. This is most pronounced within the left lower lobe. Otherwise, no new focal lung consolidations to suggest pneumonia. No ev idence for pulmonary edema. IMPRESSION: No change in the mild cardiomegaly and chronic interstitial thickening. ACT 112: Negative or not required by law. Electronically signed by: Issa Funk M.D. 03/31/2022 5:11 PM Discharge Plan Visit Data Chief Complaint: Chest Pain ED Provider: Jake Pruett Discharge Problem: Unstable angina, CAD (coronary artery disease), Abnormal EKG Patient Disposition: Being Evaluated by Hospitalist Forms Stand Alone Forms: My [facility] Prescriptions Prescriptions: No Action carbamazepine [Tegretol] 200 mg Tablet 200 mg PO BID RF: 0 aspirin 325 mg Tablet,Delayed Release (Dr/Ec) 325 mg PO HS RF: 0 cholecalciferol (vitamin D3) [Vitamin D3] 25 mcg (1,000 unit) Tablet 1,000 unit PO QAM RF: 0 multivitamin Tablet 1 tab PO DAILY RF: 0 metoprolol tartrate [Lopressor] 50 mg tablet 25 mg PO BID RF: 0 lisinopril-hydrochlorothiazide 10-12.5 mg tablet 1 tab PO QPM RF: 0 ezetimibe [Zetia] 10 mg tablet 10 mg PO QPM RF: 0 rosuvastatin [Crestor] 40 mg tablet 40 mg PO QPM RF: 0 ferrous sulfate 27 mg iron Tablet 27 mg PO DAILY RF: 0 amlodipine 2.5 mg tablet 2.5 mg PO DAILY RF: 0 isosorbide mononitrate 60 mg Tablet Extended Release 24 Hr 60 mg PO QAM Qty: 30 RF: 0 nitroglycerin [Nitrostat] 0.4 mg Tablet, Sublingual 0.4 mg sublingual UD PRN (Reason: chest pain) Qty: 30 RF: 0 isosorbide mononitrate 30 mg tablet extended release 24 hr 60 mg PO QPM Qty: 0 RF: 0 Referrals Referrals: Kenny Osborn MD [Primary Care Provider] -
[2022-03-31 17:45] LABS: Basophils # (auto) 0.01 K/uL (0-0.2); Basophils % (auto) 0.1 %; Eosinophils # (auto) 0.26 K/uL (0-0.5); Eosinophils % (auto) 3.4 %; Hematocrit (blood only) 39.3 % (42-52); Hemoglobin 13.2 g/dL (14.0-18.0); Lymphocytes # (auto) 1.44 K/uL (1.2-3.4); Lymphocytes % (auto) 18.6 %; Mean Corpuscular Hemoglobin 33.2 pg (25-34); Mean Corpuscular Hgb Conc 33.6 g/dL (32-36); Mean Platelet Volume 9.2 fL (7.4-10.4); Monocytes # (auto) 0.56 K/uL (0.11-0.59); Monocytes % (auto) 7.2 %; Neutrophils # (auto) 5.48 K/uL (1.4-6.5); Neutrophils % (auto) 70.7 %; Platelet Count 234 K/uL (130-400); RDW Coefficient of Variation 12.6 % (11.5-14.5); RDW Standard Deviation 45.9 fL (36.4-46.3); Red Blood Count 3.97 M/uL (4.7-6.1); White Blood Count 7.75 K/uL (4.8-10.8)
[2022-03-31 17:55] LABS: Albumin Globulin Ratio 1.8 (0.9-2); Albumin Level 4.6 gm/dl (3.4-5.0); BUN Creatinine Ratio 19.7 (10-20); Bilirubin,Total 0.5 mg/dl (0.2-1.0); Calcium 9.6 mg/dl (8.5-10.1); Creatinine Clr Calc Pharmacy 72.4 ml/min; Est GFR (African American) 99.9 ml/min; Est GFR (Non-African American) 86.2 ml/min; Globulin 2.5 gm/dl (2.5-4.0); Potassium 3.8 mmol/L (3.5-5.1); Total Protein 7.1 gm/dl (6.0-8.3)
[2022-03-31 17:59] LABS: Partial Thromboplastin Time 27.3 Seconds (21.0-31.0); Prothrombin Time 10.9 Seconds (9.0-12.0)
[2022-03-31] MEDS ORDERED: Heparin IV Adult Wt-Based Low-Dose WITH Bolus Protocol IV STA (18:18)
[2022-03-31] MEDS ORDERED: HEPARIN SOD (PORCINE) 1000 UNIT/ML IV ONE (18:33)
[2022-03-31] MEDS: HEPARIN SODIUM/DEXTROSE 25,000 UNITS/500 ML BAG IV SCH (18:51)
--- NOTE | 2022-03-31 19:00 | History & Physical Report ---
Date of Service March 31, 2022 Assessment & Plan (1) Chest pain: (2) Unstable angina: (3) CAD (coronary artery disease): Plan: Patient is a 86-year-old male with PMH CAD with prior OR in 1998, s/p CABG in 1998, angina, HTN, HLD, presented to ER with complaint of chest pain today while changing electrical outlet. At home 2 SL nitro without relief, 3rd nitro by EMS with decreased chest pressure. Was given ASA 325mg by EMS. In ER 4th nitro SL with resolution of chest pain. In ER EKG sinus rhythm, 1st degree AV block, T wave inversions inferior and precordial leads. History stress test 10/2021: Large size reversible inferior, inferior lateral perfusion defect of moderate to severe intensity but similar to prior in 2017. History echo 02/16/2022: EF 55-60%, mild hypokinesis base of lateral wall, mild tricuspid regurgitation R/O ACS. -No further CP in ER and currently CP free -Heparin IV started in ER. Continue IV heparin -Repeat EKG in am -Will trend troponin -Echo -lipid panel completed 02/17/22. Continue statin -continue aspirin, metoprolol tartrate, statin -start nitro paste Q6H and hold home Imdur -repeat EKG for CP -Cardiology consult (4) Hypertension: Plan: - Continue metoprolol tartrate, amlodipine, lisinopril, HCTZ (5) Hyperlipidemia: Plan: - Continue atorvastatin, ezetimibe (6) Seizure disorder: Plan: - Continue Tegretol DVT Prophylaxis -On IV Heparin Full Code as per discussion with pt Follows with Dr Osborn for routine care Pt was seen and care coordinated with Dr Rees. See addendum History of Present Illness Chief Complaint: CP Primary Care Provider: Kenny Osborn MD Patient is a 86-year-old male with PMH CAD with prior [place] in 1998, s/p CABG in 1998, angina, HTN, HLD, AAA, epilepsy, right iliac artery dissection, hx Lyme arthritis, antiphospholipid syndrome, osteoporosis, and elevated homocysteine presented to ER with complaint of chest pain. Patient has been having recurrent chest pain/pressure with exertion and has been following with cardiology. Most recent hospital admission on 02/16/2022-02/17/2022 for chest pain with negative troponins, no significant change on echo. His Imdur was increased to twice daily dosing. History stress test 10/2021: Large size reversible inferior, inferior lateral perfusion defect of moderate to severe intensity but similar to prior in 2017. Per outpatient cardiology notes patient is unable to take Ranexa due to use of Tegretol for seizure disorder, amlodipine was increased to 5 mg daily Patient reports this morning around 8:30 AM was changing an electrical outlet when he started with anterior chest pressure with radiation to right arm and some tingling left arm. Reports some mild shortness of breath with this. Denies diaphoresis, neck pain, jaw pain, dizziness, palpitations. He reports he took 2 sublingual nitro without relief and pain persisted throughout the afternoon and called EMS. Patient reports was given a third sublingual nitro by EMS and chest pressure eased. Upon arrival to ER patient given 4th sublingual nitro with resolution of chest pain. In ER EKG sinus rhythm, 1st degree AV block, T wave inversions inferior and precordial leads. Denies fever/chills, diaphoresis, N/V/D/C, DELEON, dizziness, syncope, vision changes, neck pain, orthopnea, cough, sore throat, choking, otalgia, rhinorrhea, abdominal pain, paresthesias, weakness, extremity edema, rashes, urinary symptoms. Allergies Allergy/AdvReac Type Severity Reaction Status Date / Time diltiazem AdvReac Severe red rash Verified 03/31/22 19:20 on chest Hydantoins AdvReac Severe CAUSES A Verified 03/31/22 19:20 SEIZURE phenytoin AdvReac Severe CAUSES A Verified 03/31/22 19:20 SEIZURE Home Medications Medication Instructions Recorded Confirmed Type aspirin 325 mg tablet,delayed 325 mg PO HS 12/28/19 03/31/22 History release carbamazepine 200 mg tablet 200 mg PO BID 12/28/19 03/31/22 History (Tegretol) cholecalciferol (vitamin D3) 25 1,000 unit PO QAM 12/28/19 03/31/22 History mcg (1,000 unit) tablet (Vitamin D3) ezetimibe 10 mg tablet (Zetia) 10 mg PO QPM 06/02/20 03/31/22 History ferrous sulfate 27 mg iron tablet 27 mg PO DAILY 06/02/20 03/31/22 History lisinopril 10 1 tab PO QPM 06/02/20 03/31/22 History mg-hydrochlorothiazide 12.5 mg tablet metoprolol tartrate 50 mg tablet 25 mg PO BID 06/02/20 03/31/22 History (Lopressor) multivitamin 1 tab PO DAILY 06/02/20 03/31/22 History rosuvastatin 40 mg tablet (Crestor) 40 mg PO QPM 06/02/20 03/31/22 History nitroglycerin 0.4 mg sublingual 0.4 mg SUBLINGUAL UD PRN #30 tab 02/17/22 03/31/22 Rx tablet (Nitrostat) amlodipine 5 mg tablet 5 mg PO DAILY 03/31/22 03/31/22 History isosorbide mononitrate 60 mg 60 mg PO BID 03/31/22 03/31/22 History tablet,extended release 24 hr Past Med/Surg History Medical History (Updated 03/31/22 @ 19:51 by Eugenia Sanchez PA-C) AAA (abdominal aortic aneurysm) Antiphospholipid syndrome CAD (coronary artery disease) Status post coronary bypass grafting, 1998, CHASE graft to LAD, free radial graft from left internal mammary artery to the left first obtuse marginal, and right internal mammary artery graft to the right coronary artery. 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 History of [place] (myocardial infarction) Hyperlipidemia Hypertension Lyme arthritis Lyme disease Osteoporosis Right rib fracture Seizure disorder Vitamin D deficiency Surgical History History of inguinal hernia repair History of vasectomy S/P CABG (coronary artery bypass graft) Family History Other Family history unknown Social History Smoking Status: Never smoker Tobacco Type: Cigarettes Second Hand Exposure: No; Hx Alcohol Use: No Hx Substance Use: No Preferred Language: [place] Communication Ability: Effective Co Founder And Cto Required: No Beliefs That Will Affect Care: None marital status: Current Living Situation: Spouse and Family How many Children do You have: 5 Feels Safe at Home: Yes Assistive Devices: Cane, Denture - Upper and Glasses Review of Systems Review of Systems: All systems reviewed & are unremarkable except as noted in HPI & below Physical Exam Physical Exam: General: no distress, WDWN Head: normocephalic, atraumatic Eyes: conjunctiva non-injected, anicteric ENT: normal inspection external ears, nose, mucous membranes moist Neck: supple, trachea midline Lungs: clear, no respiratory distress, slight crackles bilaterally CV: RRR, no murmur, no JVD, no pretibial edema Abd: normal BS, soft, non-tender Ext: no cyanosis, no calf tenderness Neuro: A&O x 3, no focal deficits noted, normal affect Skin: warm, dry Results & Data Results & Data ([facility]) Vital Signs (Past 12 Hours) Vital Signs Temp Pulse Resp BP Pulse Ox 03/31/22 17:10 86 17 95 03/31/22 16:39 36.8 C 88 18 139/78 95 Laboratory Results Short CBC 03/31/22 Range/Units 16:20 WBC 7.75 (4.8-10.8) K/uL Hgb 13.2 L (14.0-18.0) g/dL Hct 39.3 L (42-52) % Plt Count 234 (130-400) K/uL BMP 03/31/22 16:20 Sodium 138 Potassium 3.8 Chloride 99 Carbon Dioxide 30 BUN 14 Creatinine 0.71 Glucose 95 Calcium 9.6 Liver Function 03/31/22 Range/Units 16:20 Total Bilirubin 0.5 (0.2-1.0) mg/dl AST 19 (13-39) U/L ALT 14 (7-52) U/L Alkaline Phosphatase 91 (34-104) U/L Albumin 4.6 (3.4-5.0) gm/dl Diagnostic Findings Chest X-Ray 03/31/22 16:51 XR chest 1V portable HISTORY: Atypical Chest Pain COMPARISON: Chest 02/16/2022. FINDINGS: There are low lung volumes. The heart is mildly enlarged. There are poststernotomy changes. No pleural effusions. No pneumothorax. Diffuse interstitial thickening persists. This is most pronounced within the left lower lobe. Otherwise, no new focal lung consolidations to suggest pneumonia. No evidence for pulmonary edema. IMPRESSION: No change in the mild cardiomegaly and chronic interstitial thickening. ACT 112: Negative or not required by law. Electronically signed by: Issa Funk M.D. 03/31/2022 5:11 PM Supervising Physician Co-Signing Physician Notes Patient was seen and examined at bedside in presence of . He knows me from recent admission when he presented with stable angina and his antianginal medications were adjusted. Chart reviewed, case discussed with Eugenia MOE and agree with the documentation. In summary, 86 year old male with CAD s/p CABG 1998, chronic stable angina, epilepsy etc who presented to the ED with exertional chest pain which was finally relieved with 4 SL nitro (2 at home, 1 with EMS and 1 in ED). Chest pain free during my encounter. Trop negative as of now, but EKG changes noted. Given full dose aspirin by EMS. Started on heparin drip in the ED. His presentation concerning for UA- will continue heparin drip, aspirin, statin, betablocker, nitrate. Trend trop, tele, repeat EKG, echo. Consult cardio for further management. Rest as per note above.
[2022-03-31] MEDS ORDERED: ACETAMINOPHEN 325 MG TAB PO PRN (20:42)
[2022-03-31] MEDS: ROSUVASTATIN CALCIUM 20 MG TAB PO SCH (22:26)
[2022-03-31] MEDS: METOPROLOL TARTRATE 25 MG TAB PO SCH (22:26)
[2022-03-31] MEDS: LISINOPRIL/HCTZ 10/12.5MG TAB PO SCH (22:26)
[2022-03-31] MEDS: amLODIPine BESYLATE 5 MG TAB PO SCH (22:27)
[2022-03-31] MEDS: EZETIMIBE 10 MG TABLET PO SCH (22:27)
[2022-03-31] MEDS: carBAMazepine 200 MG TABLET PO SCH (22:27)
[2022-04-01] MEDS: NITROGLYCERIN 2% OINTMENT 30GM TUBE EXT SCH ×5 (01:05→23:49)
[2022-04-01 01:17] LABS: INR 1.1 (0.9-1.1); Prothrombin Time 11.5 Seconds (9.0-12.0)
[2022-04-01 01:33] LABS: Partial Thromboplastin Ratio 1.7
[2022-04-01 01:57] LABS: Partial Thromboplastin Time 45.4 Seconds (21.0-31.0)
[2022-04-01 04:31] LABS: BUN Creatinine Ratio 17.8 (10-20); Calcium 9.1 mg/dl (8.5-10.1); Creatinine Clr Calc Pharmacy 69.4 ml/min; Est GFR (African American) 98.7 ml/min; Est GFR (Non-African American) 85.2 ml/min; Hematocrit (blood only) 36.8 % (42-52); Hemoglobin 12.3 g/dL (14.0-18.0); Mean Corpuscular Hgb Conc 33.4 g/dL (32-36); Mean Corpuscular Volume 98.7 fL (80-100); Mean Platelet Volume 9.3 fL (7.4-10.4); Platelet Count 205 K/uL (130-400); RDW Coefficient of Variation 12.7 % (11.5-14.5); RDW Standard Deviation 45.8 fL (36.4-46.3); Red Blood Count 3.73 M/uL (4.7-6.1); White Blood Count 7.01 K/uL (4.8-10.8)
[2022-04-01] MEDS: MULTIVITAMIN TAB PO SCH (08:07)
[2022-04-01] MEDS: amLODIPine BESYLATE 5 MG TAB PO SCH (08:08)
[2022-04-01] MEDS: CHOLECALCIFEROL 1,000 UNITS 25 MCG TAB PO SCH (08:08)
[2022-04-01] MEDS: carBAMazepine 200 MG TABLET PO SCH ×2 (08:08→21:11)
[2022-04-01] MEDS: FERROUS SULFATE 325 MG TAB PO SCH (08:09)
[2022-04-01] MEDS: METOPROLOL TARTRATE 25 MG TAB PO SCH ×2 (08:09→21:11)
[2022-04-01 08:39] LABS: Partial Thromboplastin Ratio 1.7
[2022-04-01 08:51] LABS: Partial Thromboplastin Time 45.9 Seconds (21.0-31.0)
--- NOTE | 2022-04-01 10:04 | Electrocardiogram Report ---
Test Reason : Blood Pressure : / mmHG Vent. Rate : 087 BPM Atrial Rate : 087 BPM P-R Int : 260 ms QRS Dur : 088 ms QT Int : 338 ms P-R-T Axes : 071 024 203 degrees QTc Int : 406 ms Poor data quality, interpretation may be adversely affected Sinus rhythm with 1st degree A-V block Marked ST/T changes c.w inferolateral and anterolateral ischemia Abnormal ECG When compared with ECG of 17-FEB-2022 07:58, The ST/T changes are worse Confirmed by Keyshawn Gibson ([id number]) on 04/01/2022 10:04:02 AM Referred By: REFERRED SELF Confirmed By:Keyshawn Gibson
--- NOTE | 2022-04-01 10:07 | Electrocardiogram Report ---
Test Reason : Blood Pressure : / mmHG Vent. Rate : 087 BPM Atrial Rate : 084 BPM P-R Int : 000 ms QRS Dur : 082 ms QT Int : 374 ms P-R-T Axes : 000 027 174 degrees QTc Int : 450 ms Poor data quality, interpretation may be adversely affected Normal sinus rhythm with First degree AVB with occasional Premature ventricular complexes Marked ST abnormality, possible lateral subendocardial injury Abnormal ECG When compared with ECG of 31-MAR-2022 16:27, (unconfirmed) No change in ST/T segments PVC is new Confirmed by Keyshawn Gibson ([id number]) on 04/01/2022 10:07:33 AM Referred By: REFERRED SELF Confirmed By:Keyshawn Gibson
--- NOTE | 2022-04-01 10:10 | Cardiology Consultation ---
Date of Consultation April 01, 2022 Assessment & Plan (1) NSTEMI (non-ST elevated myocardial infarction): (2) Seizure disorder: (3) AAA (abdominal aortic aneurysm): (4) Hypertension: (5) Hyperlipidemia: (6) CAD (coronary artery disease): Pt presents with NSTEMI elevated trop, ischemic ekg changes and new wall motion abnormality in the LAD territory. already received asa, heparin and nitro. currently pain free We will plan on performing cardiac catheterization on Sunday morning. Okay to resume diet at this time we will make n.p.o. after midnight tomorrow Continue outpatient doses of metoprolol, rosuvastatin, amlodipine and lisinopril/HCTZ History of Present Illness Reason for Consultation: unstable angina Requesting Physician: EMILIANO Attending Physician: Bigg Rodriguez MD History of Present Illness It was my pleasure to see Mr. Wheeler in cardiac consultation today April 01, 2022. He is a very pleasant 86-year-old gentleman who follows very closely with Kenny Owens of our cardiology practice for his history of coronary artery disease. He presented to [facility] on 03/31/2022 with complaints of chest pain. He states at the time he was fixing electrical outlet when he suddenly developed chest discomfort. He describes it as a pressure sensation across his anterior precordium with radiation to both shoulders and some tingling down his left arm. This was associated with shortness of breath but denied any associated dizziness, nausea or diaphoresis. He took 2 sublingual nitroglycerin without relief. He notified his of the symptoms and EMS was summoned. Upon arrival emergency department is found to have ischemic EKG c hanges along with elevation of his high-sensitivity troponin. Symptoms resolved with Nitropaste. Upon further questioning he denies any significant lightheadedness or dizziness. Past medical history: 1. ASCVD a. CAD, prior inferoseptal myocardial infarction, 02/1999 b. Status post CABG, 1998 with CHASE to LAD, free radial graft from CHASE to left 1st OM and ALLEY graft to the RCA c. 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 Hypertension 3. Hyperlipidemia 4. Abdominal aortic aneurysm 5.3 cm per duplex 05/2021- following with vascular 5. Fibrotic changes of the lungs Allergies Allergy/AdvReac Type Severity Reaction Status Date / Time diltiazem AdvReac Severe red rash Verified 03/31/22 19:20 on chest Hydantoins AdvReac Severe CAUSES A Verified 03/31/22 19:20 SEIZURE phenytoin AdvReac Severe CAUSES A Verified 03/31/22 19:20 SEIZURE Home Medications Medication Instructions Recorded Confirmed Type aspirin 325 mg tablet,delayed 325 mg PO HS 12/28/19 03/31/22 History release carbamazepine 200 mg tablet 200 mg PO BID 12/28/19 03/31/22 History (Tegretol) cholecalciferol (vitamin D3) 25 1,000 unit PO QAM 12/28/19 03/31/22 History mcg (1,000 unit) tablet (Vitamin D3) ezetimibe 10 mg tablet (Zetia) 10 mg PO QPM 06/02/20 03/31/22 History ferrous sulfate 27 mg iron tablet 27 mg PO DAILY 06/02/20 03/31/22 History lisinopril 10 1 tab PO QPM 06/02/20 03/31/22 History mg-hydrochlorothiazide 12.5 mg tablet metoprolol tartrate 50 mg tablet 25 mg PO BID 06/02/20 03/31/22 History (Lopressor) multivitamin 1 tab PO DAILY 06/02/20 03/31/22 History rosuvastatin 40 mg tablet (Crestor) 40 mg PO QPM 06/02/20 03/31/22 History nitroglycerin 0.4 mg sublingual 0.4 mg SUBLINGUAL UD PRN #30 tab 02/17/22 03/31/22 Rx tablet (Nitrostat) amlodipine 5 mg tablet 5 mg PO DAILY 03/31/22 03/31/22 History isosorbide mononitrate 60 mg 60 mg PO BID 03/31/22 03/31/22 History tablet,extended release 24 hr Patient History Medical History AAA (abdominal aortic aneurysm) Antiphospholipid syndrome CAD (coronary artery disease) Status post coronary bypass grafting, 1998, CHASE graft to LAD, free radial graft from left internal mammary artery to the left first obtuse marginal, and right internal mammary artery graft to the right coronary artery. 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 History of [place] (myocardial infarction) Hyperlipidemia Hypertension Lyme arthritis Lyme disease Osteoporosis Right rib fracture Seizure disorder Vitamin D deficiency Surgical History History of inguinal hernia repair History of vasectomy S/P CABG (coronary artery bypass graft) Family History Other Family history unknown Social History Smoking Status: Never smoker Tobacco Type: Cigarettes Second Hand Exposure: No; Hx Alcohol Use: No Hx Substance Use: No Preferred Language: Danish Communication Ability: Effective Connie Cleaner Required: No Beliefs That Will Affect Care: None marital status: Current Living Situation: Spouse and Family How many Children do You have: 5 Feels Safe at Home: Yes Safety Concerns: Afraid for Self Assistive Devices: Denture - Upper, Denture - Lower and Glasses Review of Systems Review of Systems: All systems reviewed & are unremarkable except as noted in HPI & below Physical Exam Physical Exam: General: Awake, alert and oriented x 3. No acute distress. HEENT: Normocephalic, atraumatic. Pupils equal, round and reactive to light and accommodation. Extraocular muscles are intact. Anicteric sclera. Moist mucous membranes. Neck: No JVD. No bruit. Cardiovascular: Regular. Positive S-4. Normal S-1 and S-2. No S-3. 3/6 holosystolic ejection murmur, left sternal border, mid-clavicular line with radiation to the axilla. No rubs. Pulmonary: Clear to auscultation bilaterally. No rales, rhonchi, or wheezing. Abdomen: Bowel sounds x 4, soft. No rebound, guarding or tenderness. No organomegaly. Extremities: No clubbing, cyanosis or edema. +2 pedal pulses bilaterally. Skin: Warm and dry. Results & Data ([facility]) Vital Signs (Past 12 Hours) Vital Signs Temp Pulse Pulse Resp BP Pulse Ox 04/01/22 07:29 36.6 C 62 20 118/57 L 93 04/01/22 07:12 65 04/01/22 03:46 36.8 C 62 18 107/66 99 04/01/22 01:14 82 03/31/22 23:25 36.9 C 64 18 105/63 93
--- NOTE | 2022-04-01 10:18 | Electrocardiogram Report ---
Test Reason : Blood Pressure : / mmHG Vent. Rate : 064 BPM Atrial Rate : 064 BPM P-R Int : 264 ms QRS Dur : 092 ms QT Int : 422 ms P-R-T Axes : 079 026 176 degrees QTc Int : 435 ms Sinus rhythm with 1st degree A-V block with occasional Premature ventricular complexes Abnormal ECG When compared with ECG of 31-MAR-2022 16:56, (unconfirmed) No significant change was found Confirmed by Keyshawn Gibson ([id number]) on 04/01/2022 10:18:10 AM Referred By: REFERRED SELF Confirmed By:Keyshawn Gibson
--- NOTE | 2022-04-01 14:05 | Hospitalist Progress Note ---
Date of Service April 01, 2022 Assessment & Plan (1) NSTEMI (non-ST elevated myocardial infarction): Plan: Patient is a 86-year-old male with PMH CAD with prior [place] in 1998, s/p CABG in 1998, angina, HTN, HLD, presented to ER with complaint of chest pain today while changing electrical outlet. At home 2 SL nitro without relief, 3rd nitro by EMS with decreased chest pressure. Was given ASA 325mg by EMS. In ER 4th nitro SL with resolution of chest pain. In ER EKG sinus rhythm, 1st degree AV block, T wave inversions inferior and precordial leads. History stress test 10/2021: Large size reversible inferior, inferior lateral perfusion defect of moderate to severe intensity but similar to prior in 2017. History echo 02/16/2022: EF 55-60%, mild hypokinesis base of lateral wall, mild tricuspid regurgitation Serial troponins were noted to be elevated Has been on intravenous heparin and Nitropaste controlling the chest pain Continue aspirin, metoprolol tartrate, statin Start nitro paste Q6H and hold home Imdur Appreciate cardiology input and recommendation for cardiac cath on Sunday (2) Chest pain: Plan: Presented with chest pain with exertion with chest tightness and radiation to the right upper extremity without any significant shortness of breath Remains free of chest pain since admission (3) Unstable angina: (4) CAD (coronary artery disease): Plan: As above (5) Hypertension: Plan: - Continue metoprolol tartrate, amlodipine, lisinopril, HCTZ (6) Hyperlipidemia: Plan: - Continue atorvastatin, ezetimibe -Lipid panel completed 02/17/22. Continue statin (7) Seizure disorder: Plan: - Continue Tegretol DVT Prophylaxis -On IV Heparin Full Code as per discussion with pt Follows with Dr Osborn for routine care Admission and Anticipated Discharge Date Admission Date: March 31, 2022 Subjective 04/01/2022 The patient was seen and examined in telemetry unit He was admitted with the unstable angina with EKG changes and also troponin is increasing He does not have any more chest pain since admission Denies any palpitation and/or shortness of breath Review of Systems Review of Systems: All systems reviewed and are unremarkable except as noted below Respiratory: No shortness of breath Cardiovascular: Additional Comments: No chest pain and/or palpitation Physical Exam Physical Exam: Lying in bed comfortably Constitutional: well developed, well nourished and + obese; not ill appearing Eyes: PERRL, conjunctivae normal, anicteric sclerae ENMT: external ear and nose normal, oropharynx normal Neck: trachea midline, no thyromegaly Respiratory: no respiratory distress Auscultation: + diminished lung sounds and + crackles (Minimal crackles at the bases) Cardiovascular: Rate/Rhythm: regular rate and regular rhythm; not tachycardic Heart Sounds: normal S1, normal S2 and + murmur (2/6 ESM over precordium) Extremities: + edema (1+ edema bilaterally) Gastrointestinal (Abdomen): Inspection/Auscultation: normal bowel sounds; abdomen not distended Percussion/Palpation: abdomen soft; abdomen nontender Musculoskeletal: No acute arthritis in any joint Neurologic: Alert, awake and oriented x3 Psychiatric: A+Ox3, euthymic affect Lymphatic: no cervical or axillary lymphadenopathy Results & Data Results & Data ([facility]) Vital Signs (Past 12 Hours) Vital Signs Temp Pulse Pulse Resp BP Pulse Ox 04/01/22 11:40 37.0 C 62 18 122/56 L 94 04/01/22 07:29 36.6 C 62 20 118/57 L 93 04/01/22 07:12 65 04/01/22 03:46 36.8 C 62 18 107/66 99 Laboratory Results Short CBC 03/31/22 04/01/22 Range/Units 16:20 00:52 WBC 7.75 7.01 (4.8-10.8) K/uL Hgb 13.2 L 12.3 L (14.0-18.0) g/dL Hct 39.3 L 36.8 L (42-52) % Plt Count 234 205 (130-400) K/uL BMP 03/31/22 04/01/22 16:20 00:52 Sodium 138 140 Potassium 3.8 4.0 Chloride 99 105 Carbon Dioxide 30 29 BUN 14 13 Creatinine 0.71 0.73 Glucose 95 103 H Calcium 9.6 9.1 Liver Function 03/31/22 Range/Units 16:20 Total Bilirubin 0.5 (0.2-1.0) mg/dl AST 19 (13-39) U/L ALT 14 (7-52) U/L Alkaline Phosphatase 91 (34-104) U/L Albumin 4.6 (3.4-5.0) gm/dl Medications Administered Current Inpatient Medications Acetaminophen (Acetaminophen 325 Mg Tab) 650 mg PO Q4H PRN PRN Reason: Pain or Fever Stop: 04/30/22 20:41 Amlodipine Besylate (Amlodipine Besylate 5 Mg Tab) 5 mg PO DAILY DIANA Stop: 04/30/22 20:41 Last Admin: 04/01/22 08:08 Dose: 5 mg Documented by: Aspirin (Aspirin 325 Mg Ectab) 325 mg PO HS DIANA Stop: 05/01/22 20:59 Carbamazepine (Carbamazepine 200 Mg Tablet) 200 mg PO BID DIANA Stop: 04/30/22 20:59 Last Admin: 04/01/22 08:08 Dose: 200 mg Documented by: Ezetimibe (Ezetimibe 10 Mg Tablet) 10 mg PO QPM DIANA Stop: 04/30/22 20:59 Last Admin: 03/31/22 22:27 Dose: 10 mg Documented by: Ferrous Sulfate (Ferrous Sulfate 325 Mg Tab) 325 mg PO DAILY DIANA Stop: 05/01/22 08:59 Last Admin: 04/01/22 08:09 Dose: 325 mg Documented by: Lisinopril/HCTZ (Lisinopril/Hctz 10/12.5mg Tab) 1 tab PO QPM DIANA Stop: 04/30/22 20:59 Last Admin: 03/31/22 22:26 Dose: 1 tab Documented by: Heparin Sodium/Dextrose (Heparin Sodium/Dextrose) 25,000 units in 500 mls @ 18 mls/hr IV .Q24H PENDING SALE TO [facility]; Protocol Stop: 04/30/22 18:44 Last Titration: 04/01/22 09:06 Dose: 900 units/hr, 18 mls/hr Documented by: Metoprolol Tartrate (Metoprolol Tartrate 25 Mg Tab) 25 mg PO BID DIANA Stop: 04/30/22 20:59 Last Admin: 04/01/22 08:09 Dose: 25 mg Documented by: Multivitamins (Multivitamin Tab) 1 tab PO DAILY DIANA Stop: 05/01/22 08:59 Last Admin: 04/01/22 08:07 Dose: 1 tab Documented by: Nitroglycerin (Nitroglycerin 2% Ointment 30gm Tube) 1 inch EXT Q6 DIANA Stop: 05/01/22 00:00 Last Admin: 04/01/22 13:03 Dose: 1 inch Documented by: Rosuvastatin Calcium (Rosuvastatin Calcium 20 Mg Tab) 40 mg PO QPM PENDING SALE TO [facility] Stop: 04/30/22 20:59 Last Admin: 03/31/22 22:26 Dose: 40 mg Documented by: Vitamin D (Cholecalciferol 1,000 Units 25 Mcg Tab) 1,000 units PO QAM PENDING SALE TO [facility] Stop: 05/01/22 08:59 Last Admin: 04/01/22 08:08 Dose: 1,000 units Documented by:
[2022-04-01 15:22] LABS: Partial Thromboplastin Ratio 1.7
[2022-04-01 15:52] LABS: Partial Thromboplastin Time 45.6 Seconds (21.0-31.0)
[2022-04-01] MEDS: HEPARIN SODIUM/DEXTROSE 25,000 UNITS/500 ML BAG IV SCH (17:40)
[2022-04-01] MEDS: ASPIRIN 325 MG ECTAB PO SCH (21:11)
[2022-04-01] MEDS: EZETIMIBE 10 MG TABLET PO SCH (21:11)
[2022-04-01] MEDS: ROSUVASTATIN CALCIUM 20 MG TAB PO SCH (21:11)
[2022-04-01] MEDS: LISINOPRIL/HCTZ 10/12.5MG TAB PO SCH (21:11)
[2022-04-01 23:14] LABS: Partial Thromboplastin Ratio 1.7
[2022-04-01 23:18] LABS: Partial Thromboplastin Time 45.6 Seconds (21.0-31.0)
[2022-04-02] MEDS: NITROGLYCERIN 2% OINTMENT 30GM TUBE EXT SCH ×4 (06:04→23:22)
[2022-04-02 06:53] LABS: Basophils # (auto) 0.01 K/uL (0-0.2); Basophils % (auto) 0.1 %; Eosinophils # (auto) 0.47 K/uL (0-0.5); Eosinophils % (auto) 5.9 %; Hematocrit (blood only) 40.8 % (42-52); Hemoglobin 13.6 g/dL (14.0-18.0); Immature Granulocytes # (auto) 0.01 K/uL (0.00-0.02); Immature Granulocytes % (auto) 0.1 %; Lymphocytes # (auto) 1.89 K/uL (1.2-3.4); Lymphocytes % (auto) 23.8 %; Mean Corpuscular Hemoglobin 33.1 pg (25-34); Mean Corpuscular Hgb Conc 33.3 g/dL (32-36); Mean Corpuscular Volume 99.3 fL (80-100); Mean Platelet Volume 8.9 fL (7.4-10.4); Monocytes # (auto) 0.58 K/uL (0.11-0.59); Monocytes % (auto) 7.3 %; Neutrophils # (auto) 4.97 K/uL (1.4-6.5); Neutrophils % (auto) 62.8 %; Platelet Count 201 K/uL (130-400); RDW Coefficient of Variation 12.8 % (11.5-14.5); RDW Standard Deviation 46.7 fL (36.4-46.3); Red Blood Count 4.11 M/uL (4.7-6.1); White Blood Count 7.93 K/uL (4.8-10.8)
[2022-04-02 07:03] LABS: Partial Thromboplastin Time 27.5 Seconds (21.0-31.0)
[2022-04-02 07:17] LABS: BUN Creatinine Ratio 17.3 (10-20); Calcium 9.6 mg/dl (8.5-10.1); Creatinine Clr Calc Pharmacy 62.3 ml/min; Est GFR (African American) 94.6 ml/min; Est GFR (Non-African American) 81.6 ml/min; Magnesium 2.1 mg/dl (1.7-2.4); Potassium 4.4 mmol/L (3.5-5.1)
[2022-04-02] MEDS: amLODIPine BESYLATE 5 MG TAB PO SCH (07:47)
[2022-04-02] MEDS: METOPROLOL TARTRATE 25 MG TAB PO SCH ×2 (07:47→21:09)
[2022-04-02] MEDS: carBAMazepine 200 MG TABLET PO SCH ×2 (07:47→21:08)
[2022-04-02] MEDS: FERROUS SULFATE 325 MG TAB PO SCH (07:48)
[2022-04-02] MEDS: MULTIVITAMIN TAB PO SCH (07:48)
[2022-04-02] MEDS: CHOLECALCIFEROL 1,000 UNITS 25 MCG TAB PO SCH (09:12)
[2022-04-02 13:32] LABS: Partial Thromboplastin Ratio 1.5; Partial Thromboplastin Time 40.7 Seconds (21.0-31.0)
--- NOTE | 2022-04-02 13:47 | Cardiology Progress Note ---
Date of Service April 02, 2022 Assessment & Plan (1) NSTEMI (non-ST elevated myocardial infarction): (2) Seizure disorder: (3) AAA (abdominal aortic aneurysm): (4) Hypertension: (5) Hyperlipidemia: (6) CAD (coronary artery disease): (7) Mobitz type 1 second degree atrioventricular block: Plan: Pt presents with NSTEMI elevated trop, ischemic ekg changes and new wall motion abnormality in the LAD territory. already received asa, heparin and nitro. currently pain free We will plan on performing cardiac catheterization in AM npo after midnight will also check limited abdominal us to evaluate AAA Continue outpatient doses of metoprolol, rosuvastatin, amlodipine and lisinopril/HCTZ Admission and Anticipated Discharge Date Admission Date: March 31, 2022 Subjective Patient seen and examined, chart reviewed. No complaints overnight. Denies any further chest pain or shortness of breath. Telemetry reviewed: Normal sinus rhythm with occasional Wenkebach Review of Systems Review of Systems: All systems reviewed & are unremarkable except as noted in HPI & below Physical Exam Physical Exam: General: Awake, alert and oriented x 3. No acute distress. HEENT: Normocephalic, atraumatic. Pupils equal, round and reactive to light and accommodation. Extraocular muscles are intact. Anicteric sclera. Moist mucous membranes. Neck: No JVD. No bruit. Cardiovascular: Regular. Positive S-4. Normal S-1 and S-2. No S-3. 3/6 holosystolic ejection murmur, left sternal border, mid-clavicular line with radiation to the axilla. No rubs. Pulmonary: Clear to auscultation bilaterally. No rales, rhonchi, or wheezing. Abdomen: Bowel sounds x 4, soft. No rebound, guarding or tenderness. No organomegaly. Extremities: No clubbing, cyanosis or edema. +2 pedal pulses bilaterally. Skin: Warm and dry. Results & Data ([facility]) Vital Signs (Past 12 Hours) Vital Signs Temp Pulse Pulse Resp BP BP Pulse Ox 04/02/22 12:13 36.8 C 67 18 108/69 93 04/02/22 08:00 36.7 C 74 62 18 121/62 96 04/02/22 03:28 36.6 C 59 L 20 124/74 94
[2022-04-02] MEDS: HEPARIN SODIUM/DEXTROSE 25,000 UNITS/500 ML BAG IV SCH (17:55)
--- NOTE | 2022-04-02 18:19 | Hospitalist Progress Note ---
Date of Service April 02, 2022 Assessment & Plan (1) NSTEMI (non-ST elevated myocardial infarction): (2) Chest pain: Plan: Patient is a 86-year-old male with PMH CAD with prior AR in 1998, s/p CABG in 1998, angina, HTN, HLD, presented to ER with complaint of chest pain today while changing electrical outlet. At home 2 SL nitro without relief, 3rd nitro by EMS with decreased chest pressure. Was given ASA 325mg by EMS. In ER 4th nitro SL with resolution of chest pain. In ER EKG sinus rhythm, 1st degree AV block, T wave inversions inferior and precordial leads. History stress test 10/2021: Large size reversible inferior, inferior lateral perfusion defect of moderate to severe intensity but similar to prior in 2017. Echo showed moderate hypokinesis of the mid to apical: Anterior and anteroseptal wall Along with the Apical. Otherwise normal wall motion. Mild reduced LV systolic function with ejection fraction 45 to 50%. Serial troponins peaked at 222 Continue IV heparin drip Cardiology on board Continue aspirin, metoprolol tartrate, statin and Nitropaste Currently denies any chest pain Will make n.p.o. after midnight Continue monitor closely in PCU (3) CAD (coronary artery disease): Plan: Continue aspirin, metoprolol tartrate, statin and Nitropaste (4) AAA (abdominal aortic aneurysm): Plan: Cardio recommended to get a limited abdominal us to evaluate AAA (5) Hypertension: Plan: Continue metoprolol tartrate, amlodipine, lisinopril, HCTZ (6) Hyperlipidemia: Plan: Continue atorvastatin, ezetimibe Continue statin (7) Seizure disorder: Plan: Continue Tegretol DVT Prophylaxis On IV Heparin CODE Status Full Code Admission and Anticipated Discharge Date Admission Date: March 31, 2022 Subjective Patient was seen and examined for follow-up of chest pain Lying in bed with no distress watching TV Patient said that he feels fine today Denies any chest pain, palpitation, dizziness, shortness of breath. Review of Systems 2 Review of Systems: All systems reviewed & are unremarkable except as noted in Subjective Physical Exam Physical Exam: General- No acute distress Head- atraumatic Eyes- PERRL, EOMI, ENT- oropharynx clear Neck- supple, no JVD Lungs- clear to auscultation Heart- regular rhythm; +systolic murmur Abdomen- normal bowel sounds, soft, nontender Extremities- no calf tenderness Neuro- alert, oriented x 3; PERRL, EOMI; no facial palsy; no dysarthria Skin- warm & dry Results & Data Results & Data ([facility]) Vital Signs (Past 12 Hours) Vital Signs Temp Pulse Pulse Resp BP BP Pulse Ox 04/02/22 16:00 36.7 C 87 18 110/68 97 04/02/22 15:36 71 04/02/22 12:13 36.8 C 67 18 108/69 93 04/02/22 08:00 36.7 C 74 62 18 121/62 96
--- NOTE | 2022-04-02 18:51 | Ultrasound Report ---
US abdominal aortic aneurysm CLINICAL HISTORY: Follow up abdominal aortic aneurysm. COMPARISON STUDY: Abdominal CT 06/06/2010. FINDINGS: The proximal abdominal aorta is obscured by overlying bowel gas. There is a mid to distal a bdominal aortic aneurysm measuring up to 5.7 x 5.5 cm. This is increased in size in the interval. The re is a focal right common iliac artery aneurysm measuring 1.8 cm. Normal left common iliac artery me asuring 1.1 cm. IMPRESSION: Increase in size in a 5.7 x 5.5 cm infrarenal abdominal aortic aneurysm. ACT 112: Negative or not required by law. Electronically signed by: Issa Funk M.D. 04/02/2022 6:50 PM
[2022-04-02 20:55] LABS: Partial Thromboplastin Time 56.2 Seconds (21.0-31.0)
[2022-04-02] MEDS: ASPIRIN 325 MG ECTAB PO SCH (21:07)
[2022-04-02] MEDS: LISINOPRIL/HCTZ 10/12.5MG TAB PO SCH (21:08)
[2022-04-02] MEDS: ROSUVASTATIN CALCIUM 20 MG TAB PO SCH (21:09)
[2022-04-02] MEDS: EZETIMIBE 10 MG TABLET PO SCH (21:09)
[2022-04-03 06:26] LABS: Hemoglobin 13.3 g/dL (14.0-18.0); Mean Corpuscular Hemoglobin 33.4 pg (25-34); Mean Corpuscular Hgb Conc 34.1 g/dL (32-36); Mean Platelet Volume 9.5 fL (7.4-10.4); Platelet Count 204 K/uL (130-400); RDW Coefficient of Variation 12.7 % (11.5-14.5); RDW Standard Deviation 45.6 fL (36.4-46.3); Red Blood Count 3.98 M/uL (4.7-6.1); White Blood Count 6.51 K/uL (4.8-10.8)
[2022-04-03] MEDS: NITROGLYCERIN 2% OINTMENT 30GM TUBE EXT SCH ×3 (06:35→17:32)
[2022-04-03 06:51] LABS: BUN Creatinine Ratio 15.9 (10-20); Calcium 9.3 mg/dl (8.5-10.1); Creatinine Clr Calc Pharmacy 73.7 ml/min; Est GFR (Non-African American) 87.2 ml/min; Potassium 3.7 mmol/L (3.5-5.1)
[2022-04-03 07:08] LABS: Partial Thromboplastin Ratio 2.3
[2022-04-03] MEDS: CHOLECALCIFEROL 1,000 UNITS 25 MCG TAB PO SCH (08:54)
[2022-04-03] MEDS: FERROUS SULFATE 325 MG TAB PO SCH (08:54)
[2022-04-03] MEDS: carBAMazepine 200 MG TABLET PO SCH (08:54)
[2022-04-03] MEDS: amLODIPine BESYLATE 5 MG TAB PO SCH (08:54)
[2022-04-03] MEDS: METOPROLOL TARTRATE 25 MG TAB PO SCH (08:54)
[2022-04-03] MEDS: MULTIVITAMIN TAB PO SCH (08:54)
--- NOTE | 2022-04-03 09:50 | Cardiology Progress Note ---
Date of Service April 03, 2022 Assessment & Plan (1) NSTEMI (non-ST elevated myocardial infarction): (2) Seizure disorder: (3) AAA (abdominal aortic aneurysm): (4) Hypertension: (5) Hyperlipidemia: (6) CAD (coronary artery disease): (7) Mobitz type 1 second degree atrioventricular block: Plan: This is a complex patient with a history of coronary artery bypass performed at [facility] in 1998. Reviewing the records I was able to find some information and it appears that the patient had a CHASE to the LAD, a ALLEY to the right coronary artery and a free radial artery to a marginal branch. He has had chronic angina for years and his last stress test approximately a year ago did show inferior wall ischemia. He also has an infrarenal abdominal aortic aneurysm which measures 5.7 in diameter on the ultrasound completed this hospital admission. He is followed by vascular surgery at [facility]. If a cardiac catheterization is planned it would be a complex study with access issues. If a cardiac catheterization is to be done, then we may want to consider sending him to [facility]. Continued medical therapy is also an option. Admission and Anticipated Discharge Date Admission Date: March 31, 2022 Subjective The patient had no additional chest pain and is in good spirits today. Review of Systems Review of Systems: Review of Systems: See HPI for pertinent positives. All other 10 point review of systems are negative. Physical Exam Physical Exam: General: no acute distress and stated age Head: normocephalic, no masses, lesions, tenderness or abnormalities Eyes: conjunctiva are pink and non-injected, sclera clear Neck: supple, no adenopathy, no bruits, normal jugular venous pulse, no hepatojugular reflux Chest: normal shape and normal respiratory effort Lungs: clear to auscultation and percussion Cardiac Exam: - regular rate & rhythm, no murmurs gallops or rubs - normal S1, normal S2 Pulses: 2(+) throughout Abdomen: abdomen soft, non-tender, no abnormal masses and no hepatosplenomegaly Musculoskeletal: no gait disturbance, no joint inflammation, no deforming arthritis Extremities: no edema and no cyanosis Neuro: grossly normal exam Results & Data ([facility]) Vital Signs (Past 12 Hours) Vital Signs Temp Pulse Pulse Pulse Resp BP Pulse Ox 04/03/22 08:00 36.8 C 62 16 110/64 96 04/03/22 06:23 60 16 102/62 93 04/03/22 04:20 36.8 C 67 18 111/48 L 92 04/03/22 00:47 58 L 04/02/22 23:49 36.4 C L 59 L 18 111/70 92 Laboratory Results Laboratory Results - last 24 hr 04/02/22 04/02/22 04/03/22 12:51 20:15 05:52 WBC 6.51 RBC 3.98 L Hgb 13.3 L Hct 39.0 L MCV 98.0 MCH 33.4 MCHC 34.1 RDW Std Deviation 45.6 RDW Coeff of Ana 12.7 Plt Count 204 MPV 9.5 APTT 40.7 H 56.2 H* PTT Ratio 1.5 2.0 Sodium Potassium Chloride Carbon Dioxide Anion Gap BUN Creatinine Est Cr Clr Drug Dosing Est GFR ( Amer) Est GFR (Non-Af Amer) BUN/Creatinine Ratio Glucose Calcium 04/03/22 04/03/22 05:52 05:52 WBC RBC Hgb Hct MCV MCH MCHC RDW Std Deviation RDW Coeff of Ana Plt Count MPV APTT 63.0 H* PTT Ratio 2.3 Sodium 136 Potassium 3.7 Chloride 100 Carbon Dioxide 29 Anion Gap 7 BUN 11 Creatinine 0.69 Est Cr Clr Drug Dosing 73.7 Est GFR ( Amer) 101.0 Est GFR (Non-Af Amer) 87.2 BUN/Creatinine Ratio 15.9 Glucose 101 H Calcium 9.3 Medications Administered Current Inpatient Medications Acetaminophen (Acetaminophen 325 Mg Tab) 650 mg PO Q4H PRN PRN Reason: Pain or Fever Stop: 04/30/22 20:41 Amlodipine Besylate (Amlodipine Besylate 5 Mg Tab) 5 mg PO DAILY DIANA Stop: 04/30/22 20:41 Last Admin: 04/03/22 08:54 Dose: 5 mg Documented by: Aspirin (Aspirin 325 Mg Ectab) 325 mg PO HS DIANA Stop: 05/01/22 20:59 Last Admin: 04/02/22 21:07 Dose: 325 mg Documented by: Carbamazepine (Carbamazepine 200 Mg Tablet) 200 mg PO BID DIANA Stop: 04/30/22 20:59 Last Admin: 04/03/22 08:54 Dose: 200 mg Documented by: Ezetimibe (Ezetimibe 10 Mg Tablet) 10 mg PO QPM [facility] Stop: 04/30/22 20:59 Last Admin: 04/02/22 21:09 Dose: 10 mg Documented by: Ferrous Sulfate (Ferrous Sulfate 325 Mg Tab) 325 mg PO DAILY DIANA Stop: 05/01/22 08:59 Last Admin: 04/03/22 08:54 Dose: 325 mg Documented by: Lisinopril/HCTZ (Lisinopril/Hctz 10/12.5mg Tab) 1 tab PO QPM DIANA Stop: 04/30/22 20:59 Last Admin: 04/02/22 21:08 Dose: 1 tab Documented by: Heparin Sodium/Dextrose (Heparin Sodium/Dextrose) 25,000 units in 500 mls @ 21 mls/hr IV .[id number] [facility]; Protocol Stop: 04/30/22 18:44 Last Titration: 04/03/22 07:42 Dose: 1,050 units/hr, 21 mls/hr Documented by: Metoprolol Tartrate (Metoprolol Tartrate 25 Mg Tab) 25 mg PO BID [facility] Stop: 04/30/22 20:59 Last Admin: 04/03/22 08:54 Dose: 25 mg Documented by: Multivitamins (Multivitamin Tab) 1 tab PO DAILY DIANA Stop: 05/01/22 08:59 Last Admin: 04/03/22 08:54 Dose: 1 tab Documented by: Nitroglycerin (Nitroglycerin 2% Ointment 30gm Tube) 1 inch EXT Q6 [facility] Stop: 05/01/22 00:00 Last Admin: 04/03/22 06:35 Dose: 1 inch Documented by: Rosuvastatin Calcium (Rosuvastatin Calcium 20 Mg Tab) 40 mg PO QPM DIANA Stop: 04/30/22 20:59 Last Admin: 04/02/22 21:09 Dose: 40 mg Documented by: Vitamin D (Cholecalciferol 1,000 Units 25 Mcg Tab) 1,000 units PO QAM DIANA Stop: 05/01/22 08:59 Last Admin: 04/03/22 08:54 Dose: 1,000 units Documented by:
--- NOTE | 2022-04-03 12:35 | Communication Note ---
Date of Service: April 03, 2022 Patient accepted for transfer to [facility] in [place]. Accepting physician Dr. Collins ground transport. Plan discussed with the patient and his by phone. Both in agreement.
[2022-04-03] MEDS: HEPARIN SODIUM/DEXTROSE 25,000 UNITS/500 ML BAG IV SCH (18:11)
--- NOTE | 2022-04-06 09:54 | Discharge Summary ---
Date of Service April 03, 2022 Admission HPI Per Admitting Provider Patient is a 86-year-old male with PMH CAD with prior RI in 1998, s/p CABG in 1998, angina, HTN, HLD, AAA, epilepsy, right iliac artery dissection, hx Lyme arthritis, antiphospholipid syndrome, osteoporosis, and elevated homocysteine presented to ER with complaint of chest pain. Patient has been having recurrent chest pain/pressure with exertion and has been following with cardiology. Most recent hospital admission on 02/16/2022-02/17/2022 for chest pain with negative troponins, no significant change on echo. His Imdur was increased to twice daily dosing. History stress test 10/2021: Large size reversible inferior, inferior lateral perfusion defect of moderate to severe intensity but similar to prior in 2017. Per outpatient cardiology notes patient is unable to take Ranexa due to use of Tegretol for seizure disorder, amlodipine was increased to 5 mg daily Patient reports this morning around 8:30 AM was changing an electrical outlet when he started with anterior chest pressure with radiation to right arm and some tingling left arm. Reports some mild shortness of breath with this. Denies diaphoresis, neck pain, jaw pain, dizziness, palpitations. He reports he took 2 sublingual nitro without relief and pain persisted throughout the afternoon and called EMS. Patient reports was given a third sublingual nitro by EMS and chest pressure eased. Upon arrival to ER patient given 4th sublingual nitro with resolution of chest pain. In ER EKG sinus rhythm, 1st degree AV block, T wave inversions inferior and precordial leads. Denies fever/chills, diaphoresis, N/V/D/C, DELEON, dizziness, syncope, vision arti nges, neck pain, orthopnea, cough, sore throat, choking, otalgia, rhinorrhea, abdominal pain, paresthesias, weakness, extremity edema, rashes, urinary symptoms. Admission Exam Per Admitting Provider General- No acute distress Head- atraumatic Eyes- PERRL, EOMI, ENT- oropharynx clear Neck- supple, no JVD Lungs- clear to auscultation Heart- regular rhythm; +systolic murmur Abdomen- normal bowel sounds, soft, nontender Extremities- no calf tenderness Neuro- alert, oriented x 3; PERRL, EOMI; no facial palsy; no dysarthria Skin- warm & dry Principal Diagnosis 35 minutes Discharge Exam General- No acute distress Head- atraumatic Eyes- PERRL, EOMI, ENT- oropharynx clear Neck- supple, no JVD Lungs- clear to auscultation Heart- regular rhythm; +systolic murmur Abdomen- normal bowel sounds, soft, nontender Extremities- no calf tenderness Neuro- alert, oriented x 3; PERRL, EOMI; no facial palsy; no dysarthria Skin- warm & dry Discharge Data Allergies Allergy/AdvReac Type Severity Reaction Status Date / Time diltiazem AdvReac Severe red rash Verified 03/31/22 19:20 on chest Hydantoins AdvReac Severe CAUSES A Verified 03/31/22 19:20 SEIZURE phenytoin AdvReac Severe CAUSES A Verified 03/31/22 19:20 SEIZURE Consultations 03/31/22 18:33 ED Decision to Admit Stat 04/01/22 08:00 Consult Cardiology Routine 04/03/22 08:00 Consult Cardiac Catheterization Routine Procedures Performed Operation Date: 04/03/22 15:30 <No data on this case meets the specified criteria> Ordered Studies 04/02/22 13:45 US abdominal aortic aneurysm Routine 04/03/22 07:00 CL Cath Imgs for PACS use only Routine US abdominal aortic aneurysm CLINICAL HISTORY: Follow up abdominal aortic aneurysm. COMPARISON STUDY: Abdominal CT 06/06/2010. FINDINGS: The proximal abdominal aorta is obscured by overlying bowel gas. There is a mid to distal abdominal aortic aneurysm measuring up to 5.7 x 5.5 cm. This is increased in size in the interval. There is a focal right common iliac artery aneurysm measuring 1.8 cm. Normal left common iliac artery measuring 1.1 cm. IMPRESSION: Increase in size in a 5.7 x 5.5 cm infrarenal abdominal aortic aneurysm. ACT 112: Negative or not required by law. Electronically signed by: Issa Funk M.D. 04/02/2022 6:50 PM Dictated:04/02/221847 Transcribed: 04/02/221847 XR chest 1V portable HISTORY: Atypical Chest Pain COMPARISON: Chest 02/16/2022. FINDINGS: There are low lung volumes. The heart is mildly enlarged. There are poststernotomy changes. No pleural effusions. No pneumothorax. Diffuse interstitial thickening persists. This is most pronounced within the left lower lobe. Otherwise, no new focal lung consolidations to suggest pneumonia. No evidence for pulmonary edema. IMPRESSION: No change in the mild cardiomegaly and chronic interstitial thickening. ACT 112: Negative or not required by law. Electronically signed by: Issa Funk M.D. 03/31/2022 5:11 PM Dictated:03/31/221708 Transcribed: 03/31/221708 Hospital Course (1) NSTEMI (non-ST elevated myocardial infarction): (2) Chest pain: Patient is a 86-year-old male with PMH CAD with prior RI in 1998, s/p CABG in 1998, angina, HTN, HLD, presented to ER with complaint of chest pain today while changing electrical outlet. At home 2 SL nitro without relief, 3rd nitro by EMS with decreased chest pressure. Was given ASA 325mg by EMS. In ER 4th nitro SL with resolution of chest pain. In ER EKG sinus rhythm, 1st degree AV block, T wave inversions inferior and precordial leads. History stress test 10/2021: Large size reversible inferior, inferior lateral perfusion defect of moderate to severe intensity but similar to prior in 2017. Echo showed moderate hypokinesis of the mid to apical: Anterior and anteroseptal wall Along with the Apical. Otherwise normal wall motion. Mild reduced LV systolic function with ejection fraction 45 to 50%. Serial troponins peaked at 222 Continue IV heparin drip Cardiology on board Continue aspirin, metoprolol tartrate, statin and Nitropaste Currently denies any chest pain Cardiac cath was postponed due to high risk. Pt will be transferred to [facility] for the cardiac cath Cardiology called [facility] cardio that accepted the patient on transfer Accepting physician Dr. Collins Continue monitor closely in PCU until transferring to [place] (3) CAD (coronary artery disease): Continue aspirin, metoprolol tartrate, statin and Nitropaste (4) AAA (abdominal aortic aneurysm): Cardio recommended to get a limited abdominal us to evaluate AAA (5) Hypertension: Continue metoprolol tartrate, amlodipine, lisinopril, HCTZ (6) Hyperlipidemia: Continue atorvastatin, ezetimibe Continue statin (7) Seizure disorder: Continue Tegretol DVT Prophylaxis On IV Heparin CODE Status Full Code Disposition Transfer to [facility] Total Time Total Time Spent Total Time Spent (In Minutes): 35 minutes Discharge Plan Discharge Items Patient Disposition: Transfer Acute Care Hospital Reason For Visit: CHEST PAIN Discharge Diagnosis: (1) NSTEMI (non-ST elevated myocardial infarction): (2) Seizure disorder: (3) AAA (abdominal aortic aneurysm): (4) Hypertension: (5) Hyperlipidemia: (6) CAD (coronary artery disease): Activity: Resume your previous activity Non-emergency contact: Primary Care Provider and Whizzer Hand Call non-emergency contact if: you have any medication questions Follow-up/Referrals: Kenny Osborn MD [Primary Care Provider] - Diet: Heart Healthy Addtl Attending Provider Instructions: Follow up with your primary care provider once discharge at [facility] You will be transferred to [facility] for the cardiac cath Accepting physician Dr. Collins [facility]. Continue IV heparin drip for now Pending Studies at Discharge: No Stand-Alone Forms: My [employer], Smoking Cessation Skilled Items Patient informed of condition?: Yes DNR: No Discharge Level of Care: Other Communicable Disease: No Discharge Prognosis: Stable Lines: Peripheral IV Urinary Catheter: No Medications and DC Order Prescriptions: Continued carbamazepine [Tegretol] 200 mg Tablet 200 mg PO BID RF: 0 aspirin 325 mg Tablet,Delayed Release (Dr/Ec) 325 mg PO HS RF: 0 cholecalciferol (vitamin D3) [Vitamin D3] 25 mcg (1,000 unit) Tablet 1,000 unit PO QAM RF: 0 multivitamin Tablet 1 tab PO DAILY RF: 0 metoprolol tartrate [Lopressor] 50 mg tablet 25 mg PO BID RF: 0 lisinopril-hydrochlorothiazide 10-12.5 mg tablet 1 tab PO QPM RF: 0 ezetimibe [Zetia] 10 mg tablet 10 mg PO QPM RF: 0 rosuvastatin [Crestor] 40 mg tablet 40 mg PO QPM RF: 0 ferrous sulfate 27 mg iron Tablet 27 mg PO DAILY RF: 0 nitroglycerin [Nitrostat] 0.4 mg Tablet, Sublingual 0.4 mg sublingual UD PRN (Reason: chest pain) Qty: 30 RF: 0 amlodipine 5 mg tablet 5 mg PO DAILY RF: 0 isosorbide mononitrate 60 mg tablet extended release 24 hr 60 mg PO BID RF: 0 Discharge Orders: Discharge Order (Routine); Ordered 04/03/22 Ordered By: Sofie Landry Admission Data Admit Date/Time: 03/31/22 19:04 Attending Provider: Sofie Landry Admit Provider: Blair Rees Primary Care Provider: Kenny Osborn Other Providers: Blair Rees ; Bigg Rodriguez ; Cb Rodriguez ; Biju Stevenson Other Interventions: Discharge Summary Assessment (RN) Last Done: 04/03/22 16:39
== END 2022-04-03 20:10 | disposition short-term general hospital (02) | DRG 282 ==
LOC: ED 16:18 → 2S 19:04 → SUATTDRO 19:04 → 2S 20:09
DX: I71.4 Abdominal aortic aneurysm, without rupture; I44.0 Atrioventricular block, first degree; I10 Essential (primary) hypertension; M81.0 Age-related osteoporosis without current pathological fracture; Z88.8 Allergy status to other drugs, medicaments and biological substances; Z98.52 Vasectomy status; I21.4 Non-ST elevation (NSTEMI) myocardial infarction; I25.110 Atherosclerotic heart disease of native coronary artery with unstable angina pectoris; I25.2 Old myocardial infarction; Z95.1 Presence of aortocoronary bypass graft; G40.909 Epilepsy, unspecified, not intractable, without status epilepticus; E78.5 Hyperlipidemia, unspecified; Z79.82 Long term (current) use of aspirin; M19.90 Unspecified osteoarthritis, unspecified site; Z88.6 Allergy status to analgesic agent; Z79.899 Other long term (current) drug therapy

== ENCOUNTER 2022-04-17 21:15 | Inpatient (IN) ==
[2022-04-17] MEDS ORDERED: NITROGLYCERIN 2% OINTMENT 30GM TUBE ONE (21:43)
[2022-04-17 21:49] LABS: Basophils # (auto) 0.01 K/uL (0-0.2); Basophils % (auto) 0.1 %; Eosinophils # (auto) 0.39 K/uL (0-0.5); Eosinophils % (auto) 4.7 %; Hematocrit (blood only) 37.6 % (42-52); Hemoglobin 12.5 g/dL (14.0-18.0); Immature Granulocytes # (auto) 0.01 K/uL (0.00-0.02); Immature Granulocytes % (auto) 0.1 %; Lymphocytes # (auto) 2.03 K/uL (1.2-3.4); Lymphocytes % (auto) 24.3 %; Mean Corpuscular Hemoglobin 32.6 pg (25-34); Mean Corpuscular Hgb Conc 33.2 g/dL (32-36); Mean Corpuscular Volume 97.9 fL (80-100); Mean Platelet Volume 9.1 fL (7.4-10.4); Monocytes # (auto) 0.58 K/uL (0.11-0.59); Monocytes % (auto) 6.9 %; Neutrophils # (auto) 5.33 K/uL (1.4-6.5); Neutrophils % (auto) 63.9 %; Platelet Count 233 K/uL (130-400); RDW Coefficient of Variation 12.9 % (11.5-14.5); RDW Standard Deviation 46.6 fL (36.4-46.3); Red Blood Count 3.84 M/uL (4.7-6.1); White Blood Count 8.35 K/uL (4.8-10.8)
[2022-04-17] MEDS ORDERED: MoRPHine SULFATE 2 MG/ML CARP IV STA (21:49)
[2022-04-17] MEDS ORDERED: NITROGLYCERIN 2% OINTMENT 30GM TUBE EXT STA (21:49)
[2022-04-17] MEDS ORDERED: FUROSEMIDE INJ 20 MG/2 ML VIAL IV STA (21:58)
[2022-04-17 22:00] LABS: Partial Thromboplastin Time 27.1 Seconds (21.0-31.0); Prothrombin Time 11.1 Seconds (9.0-12.0)
[2022-04-17] MEDS ORDERED: FUROSEMIDE 40 MG/4 ML VIAL IV ONE (22:07)
[2022-04-17 22:08] LABS: Albumin Globulin Ratio 1.6 (0.9-2); Albumin Level 4.5 gm/dl (3.4-5.0); BUN Creatinine Ratio 22.1 (10-20); Bilirubin,Total 0.5 mg/dl (0.2-1.0); Calcium 9.8 mg/dl (8.5-10.1); Creatinine Clr Calc Pharmacy 62.1 ml/min; Est GFR (African American) 96.6 ml/min; Est GFR (Non-African American) 83.3 ml/min; Globulin 2.8 gm/dl (2.5-4.0); Potassium 4.1 mmol/L (3.5-5.1); Total Protein 7.3 gm/dl (6.0-8.3)
--- NOTE | 2022-04-17 22:10 | Emergency Department Note ---
Impression & Plan Precordial chest pain, Abnormal ECG, CHF (congestive heart failure), Hypoxia ED Provider Note NAME: Ayla SIEGEL AGE: 86 SEX: M : 1935 ARRIVES VIA: Ambulance INFORMANT: [Patient] ED PROVIDER(S): [Wilbur To MD] CHIEF COMPLAINT: Chest pain HISTORY OF PRESENT ILLNESS: The patient is an 86-year-old male who has a history of angina. He was just in our hospital a few weeks ago for a non-STEMI. The patient has intermittent chest pain almost every day but today, he has had pain all day. The pain is a 5/10. He has used 4 of his own nitroglycerin, nitroglycerin does help but the pain then eventually comes back. He was given [address] here. The patient denies any shortness of breath, sweating or nausea. He denies cough, cold or congestion. No fever. The patient has a history of 3 bypasses over 20 years ago, he did not have any recent coronary intervention with the non-STEMI. REVIEW OF SYSTEMS: See HPI for pertinent positives and negatives. A total of ten systems were reviewed and were otherwise negative. PMHx/PSHx: See Below SOCIAL HISTORY: See Below. PHYSICAL EXAM: GENERAL: Patient is in no acute distress. HEENT: No acute trauma, normocephalic atraumatic, mucous membranes moist, no nasal congestion, no scleral icterus. NECK: No stridor, no adenopathy, no meningismus, trachea is midline. LUNGS: Clear to auscultation bilaterally when listening anterior, no wheeze, no rhonchi, breath sounds equal. No respiratory distress. HEART: 2/6 systolic murmur, regular rhythm, normal rate. ABDOMEN: Soft, nontender, bowel sounds positive, no peritonitis. EXTREMITIES: No cyanosis or edema, full range of motion of all the joints without pain or difficulty, no signs for acute trauma. NEUROLOGIC: Oriented x 3, no acute motor or sensory deficits, no focal weakness. SKIN: No rash, no jaundice, no diaphoresis. DIFFERENTIAL DIAGNOSIS: Cardiac ischemia, aortic dissection, pulmonary embolism, pneumothorax, pneumonia, pericarditis, myocarditis, esophageal rupture, GERD, cholecystitis, pancreatitis, musculoskeletal, as well as other pathologies. EMERGENCY DEPARTMENT COURSE/PROCEDURES: ECG: Indication was chest pain. The ECG shows a sinus rhythm with a first- degree AV block. There is significant T wave change diffusely. There are T wave inversions with some ST depression. The rate is 85. There is no PVC. There is some ST elevation in aVR and V1. Compared to an ECG from 01 Apr 2022, the T wave and ST changes appear more pronounced. Repeat ECG: Indication was chest pain. ECG shows a sinus rhythm with a first-d egree AV block. PVCs are seen. The rate is 78. There are inverted T waves across the anterior and lateral leads. There is some ST depression. The ST depression and T wave changes appear improved compared to the previous ECG. The QTc is 403. Continuous Cardiac Monitoring: An order was placed for continuous cardiac monitoring. The monitor shows a rate of 89 with sinus rhythm with a first- degree AV block. Critical Care Note: I have personally spent 51 minutes of critical care time in the direct management of this patient. This includes bedside care, interpretation of diagnostic studies, and testing, discussion with consultants, patient, and family members, and other required patient management activities. This 51 minutes is in excess of all separately billable procedures. MEDICAL DECISION MAKING: There is no leukocytosis. The patient does have a mild anemia however, this is baseline. There is a normal platelet count. No coagulopathy. No renal failure. No concerning liver enzyme elevation. BNP is elevated consistent with potential CHF and fluid overload. Chest x-ray does show some mild CHF, no pneumonia. ECG shows a sinus rhythm with ST and T wave changes as noted above. A repeat ECG after treatment in the ED showed some improvement in the abnormalities. Cardiac enzyme testing x1 is not consistent with acute cardiac injury. COVID test returned negative. On exam, the patient was not in distress. He was slightly hypoxic and required some nasal cannula O2 supplementation. The patient received 2 mg of IV morphine, 2 inches of nitroglycerin paste. He was given 40 mg of IV Lasix. The patient is feeling markedly better since treatment. He longer has chest pain. His ECG appears improved. He is resting much more comfortably. He is in good spirits. I did speak with cardiology, Dr. Clark. Patient was to be made a heart alert if he was not improving with our medical treatment. As he is improving, a heart alert is not necessary. The patient is going to be admitted medically. I did speak with case management, the on-call hospitalist was consulted. Past Med/Surg History Medical History AAA (abdominal aortic aneurysm) Antiphospholipid syndrome CAD (coronary artery disease) Status post coronary bypass grafting, 1998, CHASE graft to LAD, free radial graft from left internal mammary artery to the left first obtuse marginal, and right internal mammary artery graft to the right coronary artery. 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 History of CT (myocardial infarction) Hyperlipidemia Hypertension Lyme arthritis Lyme disease Osteoporosis Right rib fracture Seizure disorder Vitamin D deficiency Surgical History History of inguinal hernia repair History of vasectomy S/P CABG (coronary artery bypass graft) Family History Other Family history unknown Social History Smoking Status: Former smoker Tobacco Type: Cigarettes Second Hand Exposure: No; Hx Alcohol Use: No Hx Substance Use: No Preferred Language: Romansh Communication Ability: Effective Sleeve Setter Required: No Beliefs That Will Affect Care: None marital status: Current Living Situation: Spouse and Family How many Children do You have: 5 Feels Safe at Home: Yes Assistive Devices: Cane Allergies Allergies Allergy/AdvReac Type Severity Reaction Status Date / Time diltiazem AdvReac Severe red rash Verified 03/31/22 19:20 on chest Hydantoins AdvReac Severe CAUSES A Verified 03/31/22 19:20 SEIZURE phenytoin AdvReac Severe CAUSES A Verified 03/31/22 19:20 SEIZURE Home Meds Home Medications Medication Instructions Recorded Confirmed carbamazepine 200 mg tablet 200 mg PO BID 12/28/19 03/31/22 (Tegretol) cholecalciferol (vitamin D3) 25 1,000 unit PO QAM 12/28/19 03/31/22 mcg (1,000 unit) tablet (Vitamin D3) ezetimibe 10 mg tablet (Zetia) 10 mg PO QPM 06/02/20 03/31/22 ferrous sulfate 27 mg iron tablet 27 mg PO DAILY 06/02/20 03/31/22 metoprolol tartrate 50 mg tablet 25 mg PO BID 06/02/20 03/31/22 (Lopressor) multivitamin 1 tab PO DAILY 06/02/20 03/31/22 rosuvastatin 40 mg tablet (Crestor) 40 mg PO QPM 06/02/20 03/31/22 amlodipine 5 mg tablet 5 mg PO DAILY 03/31/22 03/31/22 aspirin 81 mg tablet,delayed 81 mg PO DAILY 04/17/22 04/17/22 release clopidogrel 75 mg tablet 75 mg PO DAILY 04/17/22 04/17/22 isosorbide mononitrate 120 mg 120 mg PO DAILYBB 04/17/22 04/17/22 tablet,extended release 24 hr Previous Rx's Medication Instructions Recorded nitroglycerin 0.4 mg sublingual 0.4 mg SUBLINGUAL UD PRN #30 tab 02/17/22 tablet (Nitrostat) Results & Data (ED) Vital Signs Vital Signs - 24 hr 04/17/22 21:24 04/17/22 21:25 04/17/22 21:30 Temperature 36.8 C Temperature Source Oral Pulse Rate 84 85 84 Pulse Rate [Right Finger] Pulse Rate from SpO2 Sensor 86 86 Respiratory Rate 18 19 26 H Respiratory Effort / Characteristics Non-Labored Spontaneous Respiratory Depth Normal Respiratory Pattern Regular Blood Pressure 141/94 H Blood Pressure [Right Arm] Blood Pressure Mean 109 Blood Pressure Mean [Right Arm] Pulse Oximetry 94 94 94 Oxygen Delivery Method Room Air Room Air Oxygen Flow Rate Sepsis Recent Fever Within 48 Hours No Sepsis New/Unexplained Change in Mental Status No Sepsis Action Taken by Nursing No Action Required Oxygen Flow Rate - Titration Pulse Oximetry Post Tiitration 04/17/22 21:44 04/17/22 21:45 04/17/22 21:48 Temperature Temperature Source Pulse Rate 85 89 Pulse Rate [Right Finger] Pulse Rate from SpO2 Sensor 85 88 Respiratory Rate 23 26 H Respiratory Effort / Characteristics Respiratory Depth Respiratory Pattern Blood Pressure 149/93 H 152/88 H Blood Pressure [Right Arm] Blood Pressure Mean 111 109 Blood Pressure Mean [Right Arm] Pulse Oximetry 94 89 L 88 L Oxygen Delivery Method Room Air Nasal Cannula Oxygen Flow Rate Sepsis Recent Fever Within 48 Hours Sepsis New/Unexplained Change in Mental Status Sepsis Action Taken by Nursing Oxygen Flow Rate - Titration 2 Pulse Oximetry Post Tiitration 92 04/17/22 22:31 Temperature Temperature Source Pulse Rate Pulse Rate [Right Finger] 80 Pulse Rate from SpO2 Sensor Respiratory Rate 18 Respiratory Effort / Characteristics Non-Labored Respiratory Depth Normal Respiratory Pattern Blood Pressure Blood Pressure [Right Arm] 142/77 H Blood Pressure Mean Blood Pressure Mean [Right Arm] 98 Pulse Oximetry 90 Oxygen Delivery Method Nasal Cannula Oxygen Flow Rate 2 Sepsis Recent Fever Within 48 Hours Sepsis New/Unexplained Change in Mental Status Sepsis Action Taken by Nursing Oxygen Flow Rate - Titration Pulse Oximetry Post Tiitration Home Medications Current Medication List: was personally reviewed by me Laboratory Data Attestation: I reviewed the patient's lab results. Result diagrams: 04/17/22 21:28 04/17/22 21:28 Lab Results 04/17/22 04/17/22 04/17/22 Range/Units 21:28 21: 21:28 WBC 8.35 (4.8-10.8) K/uL RBC 3.84 L (4.7-6.1) M/uL Hgb 12.5 L (14.0-18.0) g/dL Hct 37.6 L (42-52) % MCV 97.9 (80-100) fL MCH 32.6 (25-34) pg MCHC 33.2 (32-36) g/dL RDW Std Deviation 46.6 H (36.4-46.3) fL RDW Coeff of Ana 12.9 (11.5-14.5) % Plt Count 233 (130-400) K/uL MPV 9.1 (7.4-10.4) fL Immature Gran % (Auto) 0.1 % Neut % (Auto) 63.9 % Lymph % (Auto) 24.3 % [place] % (Auto) 6.9 % Eos % (Auto) 4.7 % Baso % (Auto) 0.1 % Neut # (Auto) 5.33 (1.4-6.5) K/uL Lymph # (Auto) 2.03 (1.2-3.4) K/uL [place] # (Auto) 0.58 (0.11-0.59) K/uL Eos # (Auto) 0.39 (0-0.5) K/uL Baso # (Auto) 0.01 (0-0.2) K/uL Immature Gran # (Auto) 0.01 (0.00-0.02) K/uL Ovalocytes 1+ PT 11.1 (9.0-12.0) Seconds INR 1.0 (0.9-1.1) APTT 27.1 (21.0-31.0) Seconds PTT Ratio 1.0 Sodium 141 (136-145) mmol/L Potassium 4.1 (3.5-5.1) mmol/L Chloride 106 (98-107) mmol/L Carbon Dioxide 27 (21-32) mmol/L Anion Gap 8 (3-11) BUN 17 (6-23) mg/dl Creatinine 0.77 (0.6-1.4) mg/dl Est Cr Clr Drug Dosing 62.1 ml/min Est GFR ( Amer) 96.6 ml/min Est GFR (Non-Af Amer) 83.3 ml/min BUN/Creatinine Ratio 22.1 H (10-20) Glucose 117 H (70-99(Fasting)) mg/dl Calcium 9.8 (8.5-10.1) mg/dl Magnesium (1.7-2.4) mg/dl Total Bilirubin 0.5 (0.2-1.0) mg/dl AST 16 (13-39) U/L ALT 11 (7-52) U/L Alkaline Phosphatase 95 (34-104) U/L Troponin I High Sens 15.2 (0-20) pg/ml B-Natriuretic Peptide (0-100) pg/ml Total Protein 7.3 (6.0-8.3) gm/dl Albumin 4.5 (3.4-5.0) gm/dl Globulin 2.8 (2.5-4.0) gm/dl Albumin/Globulin Ratio 1.6 (0.9-2) SARS-CoV-2, RNA, NAAT (NEGATIVE) 04/17/22 04/17/22 04/17/22 Range/Units 21:28 22:03 22:05 WBC (4.8-10.8) K/uL RBC (4.7-6.1) M/uL Hgb (14.0-18.0) g/dL Hct (42-52) % MCV (80-100) fL MCH (25-34) pg MCHC (32-36) g/dL RDW Std Deviation (36.4-46.3) fL RDW Coeff of Ana (11.5-14.5) % Plt Count (130-400) K/uL MPV (7.4-10.4) fL Immature Gran % (Auto) % Neut % (Auto) % Lymph % (Auto) % [place] % (Auto) % Eos % (Auto) % Baso % (Auto) % Neut # (Auto) (1.4-6.5) K/uL Lymph # (Auto) (1.2-3.4) K/uL [place] # (Auto) (0.11-0.59) K/uL Eos # (Auto) (0-0.5) K/uL Baso # (Auto) (0-0.2) K/uL Immature Gran # (Auto) (0.00-0.02) K/uL Ovalocytes PT (9.0-12.0) Seconds INR (0.9-1.1) APTT (21.0-31.0) Seconds PTT Ratio Sodium (136-145) mmol/L Potassium (3.5-5.1) mmol/L Chloride (98-107) mmol/L Carbon Dioxide (21-32) mmol/L Anion Gap (3-11) BUN (6-23) mg/dl Creatinine (0.6-1.4) mg/dl Est Cr Clr Drug Dosing ml/min Est GFR ( Amer) ml/min Est GFR (Non-Af Amer) ml/min BUN/Creatinine Ratio (10-20) Glucose (70-99(Fasting)) mg/dl Calcium (8.5-10.1) mg/dl Magnesium 2.2 (1.7-2.4) mg/dl Total Bilirubin (0.2-1.0) mg/dl AST (13-39) U/L ALT (7-52) U/L Alkaline Phosphatase (34-104) U/L Troponin I High Sens (0-20) pg/ml B-Natriuretic Peptide 347 H (0-100) pg/ml Total Protein (6.0-8.3) gm/dl Albumin (3.4-5.0) gm/dl Globulin (2.5-4.0) gm/dl Albumin/Globulin Ratio (0.9-2) SARS-CoV-2, RNA, NAAT NEGATIVE (NEGATIVE) Administered Medications Discontinued Medications Furosemide (Furosemide Inj 20 Mg/2 Ml Vial) 20 mg IV NOW STA Stop: 04/17/22 21:59 Last Admin: 04/17/22 22:11 Dose: Not Given Documented by: [id number] Furosemide (Furosemide 40 Mg/4 Ml Vial) Confirm Administered Dose 40 mg IV .STK- MED ONE Stop: 04/17/22 22:08 Last Admin: 04/17/22 22:11 Dose: 20 mg Documented by: [id number] Morphine Sulfate (Morphine Sulfate 2 Mg/Ml Carp) 2 mg IV NOW STA Stop: 04/17/22 21:50 Last Admin: 04/17/22 21:55 Dose: 2 mg Documented by: [id number] Nitroglycerin (Nitroglycerin 2% Ointment 30gm Tube) Confirm Administered Dose 18 inch .ROUTE .STK-MED ONE Stop: 04/17/22 21:44 Last Admin: 04/17/22 21:45 Dose: 2 inch Documented by: [id number] Nitroglycerin (Nitroglycerin 2% Ointment 30gm Tube) 2 inch EXT NOW STA Stop: 04/17/22 21:50 Last Admin: 04/17/22 21:52 Dose: Not Given Documented by: [id number] Imaging Data Attestation: I personally reviewed and interpreted this imaging study as follows: My Impression: Chest x-ray: As per my review, mild CHF is present. There is no pneumothorax or pneumonia. Discharge Plan Visit Data Chief Complaint: Chest Pain ED Provider: Wilbur To Discharge Problem: Precordial chest pain, Abnormal ECG, CHF (congestive heart failure), Hypoxia Patient Disposition: Admitted As Inpatient Condition: Fair Discharge Instructions Interventions: ED Discharge Assessment Last Done: 04/18/22 01:17
[2022-04-17 22:13] LABS: Ovalocytes 1+
[2022-04-17 22:14] LABS: Troponin I High Sensitivity 15.2 pg/ml (0-20)
[2022-04-18] MEDS ORDERED: MoRPHine SULFATE 2 MG/ML CARP IV PRN (01:17)
[2022-04-18] MEDS ORDERED: NITROGLYCERIN SL 0.4 MG/TAB TAB SL PRN (01:17)
[2022-04-18] MEDS ORDERED: ACETAMINOPHEN 325 MG TAB PO PRN (01:17)
--- NOTE | 2022-04-18 02:58 | History and Physical Report ---
DATE OF ADMISSION: 04/17/2022. CHIEF COMPLAINT: Chest pain. HISTORY OF PRESENT ILLNESS: This is an 86-year-old male with past medical history significant for CAD with history of prior PR in 1998, status post CABG 1998, angina, hypertension, hyperlipidemia, abdominal aortic aneurysm, epilepsy, right iliac artery dissection, history of Lyme arthritis, history of phospholipid syndrome, osteoporosis, history of elevated homocysteine. Presents with chest pain. The patient was recently admitted to here on 03/31/2022 with chest pain and found to have non-ST elevated PR. Because of high risk, he was transferred to [place]. Here the echo showed mild LV dysfunction with EF of 45% to 50% with moderate hypokinesis in the mid to apical regions and was started on IV heparin, nitroglycerin paste. With the nitro paste and medications, his chest pain improved .At [place] he is status post cardiac catheterization. He has stenosis of the [place] vessels and graft stenosis, but nothing was amenable to PCI. Recommended for medical management. He remained chest pain free in [place] and was started on Plavix. His lisinopril/hydrochlorothiazide was held and stopped as he was normotensive without it during that admission. His Imdur was changed to 120 mg p.o. daily from 60 mg b.i.d. and he was discharged. He also had a followup with vascular surgery for his abdominal aortic aneurysm, and plan was to wait for 6 months for further followup as the abdominal aortic aneurysm was increased in size to 5.5 cm. The patient gets angina, but today whole day he was having chest pain, that is the reason he came here. He took 4 nitros at home, it was not helping. With ambulation, this chest pain got a little worse. Currently in the ER, he was placed on nitroglycerin paste and morphine was given. Currently he is chest pain-free. His EKG shows ST depressions in lateral leads. Currently, resting comfortably and hemodynamically stable. Denies any headache. No blurred visions, no runny nose, no sore throat, no cough, no fever, no chills. Appetite is okay. No difficulty swallowing. Currently, no shortness of breath. No nausea, no abdominal pain. Normal bowel and bladder movements. Has some swelling in the legs. Ambulates without support at home. When he goes out, he uses a cane. ALLERGIES: DILTIAZEM,HYDANTOINS, PHENYTOIN. PAST MEDICAL HISTORY: As mentioned above. PAST SURGICAL HISTORY: CABG, left heart catheterization, dental surgery, EGD with endoscopic ultrasound, inguinal hernia repair, vasectomy. MEDICATIONS: The patient is on amlodipine 5 mg p.o. daily, aspirin 81 mg p.o. daily, carbamazepine 200 mg p.o. b.i.d., vitamin D 1000 units p.o. daily, Plavix 75 mg p.o. daily, Zetia 10 mg p.o. daily, ferrous sulfate 27 mg p.o. daily, isosorbide mononitrate 120 mg p.o. daily, metoprolol tartrate 25 mg p.o. b.i.d., multivitamin 1 tablet p.o. daily, Nitrostat 0.4 mg sublingual p.r.n., Crestor 40 mg p.o. p.m. FAMILY HISTORY: He is adopted. SOCIAL HISTORY: . He quit smoking in 1979, smoked 1 pack a day for 28 years. Alcohol occasionally. No drug use. REVIEW OF SYSTEMS: As per HPI. Rest of review of systems is negative. PHYSICAL EXAMINATION: GENERAL: The patient is of moderate build, not in acute distress. VITAL SIGNS: Temperature 36.8, pulse 80, respiratory rate 18, blood pressure 142/77, oxygen 90% on 2 liters, was 88% on room air. HEENT: Pupils equal, round and reactive to light. Extraocular muscles intact. NECK: No JVD, no neck masses. CARDIOVASCULAR: S1 and S2 heard. Regular rate and rhythm. No murmur, no gallop. RESPIRATORY SYSTEM: Normal AP diameter. No accessory muscle use. Mild bilateral crackles heard. No wheezing. ABDOMEN: Soft. Bowel sounds are present, nontender, no distention. CENTRAL NERVOUS SYSTEM: Cranial nerves II-XII grossly intact, nonfocal. EXTREMITIES: Lower extremity mild edema present, no erythema seen. LABORATORY DATA: WBC 8.3, hemoglobin 12.5, hematocrit 37.6, platelets 233. PT 11.1, INR 1, APTT 27.1. Sodium 141, potassium 4.1, chloride 106, bicarb 27, BUN 17, creatinine 0.7, serum glucose 117, calcium 9.8, magnesium 2.2, total bilirubin 0.5, AST 16, ALT 11, alkaline phosphatase 95. Troponin I high sensitivity 15.2. BNP 347. SARS-CoV-2 rapid test negative. IMAGING DATA: Chest x-ray, mild pulmonary congestion. EKG: Sinus rhythm with first-degree AV block, marked ST abnormality, possible lateral endocardial injury. ASSESSMENT AND PLAN: This is an 86-year-old male who presents with chest pain. 1. Chest pain: History of myocardial infarction, history of coronary artery bypass grafting, recent history of non-ST elevation myocardial infarction and is status post cardiac catheterization in [place], which showed [place] vessel and graft stenosis which was non-amenable for percutaneous coronary intervention. Medical management recommended. Plavix was added. Imdur was changed from 60 b.i.d. to 120 mg daily. Lisinopril/hydrochlorothiazide was stopped as blood pressure was okay without medication. Currently, troponin is negative. His pain improved with morphine and nitroglycerin paste. Will continue with the nitroglycerin paste 1 inch and continue to closely monitor in tele floor. Cardiology was notified by the ER. Will follow serial enzymes, echocardiogram. Keep him n.p.o. Closely monitor in the tele floor. 2. History of coronary artery disease, status post coronary artery bypass grafting: Continue his medication of metoprolol tartrate, Imdur, Crestor, aspirin, Plavix. 3. History of hypertension: Continue amlodipine, Imdur, Lopressor. Currently on nitroglycerin paste. We will monitor the blood pressure. 4.Probably mild [id number] systolic congestive heart failure, recent echo showed EF of 45%. Has some crackles in the chest x-ray and was 88% on room air, requiring 2 liters. The patient's hydrochlorothiazide was stopped recently. Has some lower extremity edema, nitroglycerin paste. Received IV Lasix 20. We will also give another IV of 20 Lasix in the a.m. and further diuretics as per cardiology. Follow the echocardiogram. 5. History of abdominal aortic aneurysm: 5.5cm Following with vascular surgery. 6. Hyperlipidemia: On statin, Zetia. 7. History of seizure disorder: On Tegretol. 8. Deep venous thrombosis prophylaxis: Placed on Lovenox. DISPOSITION: Closely monitor in the tele floor. Level 1 full code only if there is chance of reasonable recovery as per my discussion with the patient and . PT, OT prior to discharge. Social service to help with discharge planning. Addendum. Morning troponin is in 500's. Asymptomatic. Starting on low dose iv heparin. will d/c lovenox. Close monitor. Job ID: [id number] [facility] [place] [facility]
[2022-04-18] MEDS: NITROGLYCERIN 2% OINTMENT 30GM TUBE EXT SCH ×4 (03:25→18:26)
[2022-04-18 05:08] LABS: Basophils # (auto) 0.01 K/uL (0-0.2); Basophils % (auto) 0.1 %; Eosinophils # (auto) 0.24 K/uL (0-0.5); Eosinophils % (auto) 3.3 %; Hematocrit (blood only) 36.9 % (42-52); Hemoglobin 12.3 g/dL (14.0-18.0); Immature Granulocytes # (auto) 0.02 K/uL (0.00-0.02); Immature Granulocytes % (auto) 0.3 %; Lymphocytes # (auto) 1.34 K/uL (1.2-3.4); Lymphocytes % (auto) 18.7 %; Mean Corpuscular Hemoglobin 32.6 pg (25-34); Mean Corpuscular Hgb Conc 33.3 g/dL (32-36); Mean Corpuscular Volume 97.9 fL (80-100); Mean Platelet Volume 8.9 fL (7.4-10.4); Monocytes # (auto) 0.67 K/uL (0.11-0.59); Monocytes % (auto) 9.3 %; Neutrophils % (auto) 68.3 %; Platelet Count 190 K/uL (130-400); RDW Standard Deviation 46.5 fL (36.4-46.3); Red Blood Count 3.77 M/uL (4.7-6.1); White Blood Count 7.18 K/uL (4.8-10.8)
[2022-04-18 05:27] LABS: BUN Creatinine Ratio 23.9 (10-20); Calcium 9.2 mg/dl (8.5-10.1); Creatinine Clr Calc Pharmacy 67.4 ml/min; Est GFR (African American) 99.9 ml/min; Est GFR (Non-African American) 86.2 ml/min; Magnesium 2.1 mg/dl (1.7-2.4)
[2022-04-18 05:39] LABS: Troponin I High Sensitivity 568.9 pg/ml (0-20)
[2022-04-18] MEDS: ISOSORBIDE MONO EXTENDED REL 60 MG TABCR PO SCH (05:52)
[2022-04-18] MEDS ORDERED: Heparin IV Adult Wt-Based Low-Dose WITH Bolus Protocol IV SCH (07:20)
[2022-04-18] MEDS ORDERED: HEPARIN SOD (PORCINE) 1000 UNIT/ML IV ONE (07:30)
[2022-04-18] MEDS ORDERED: ENOXAPARIN INJ 40 MG/0.4 ML SYR SQ SCH (08:00)
[2022-04-18] MEDS ORDERED: FUROSEMIDE INJ 20 MG/2 ML VIAL IV ONE (08:00)
[2022-04-18] MEDS: METOPROLOL TARTRATE 25 MG TAB PO SCH ×2 (08:02→19:31)
[2022-04-18] MEDS: CHOLECALCIFEROL 1,000 UNITS 25 MCG TAB PO SCH (08:02)
[2022-04-18] MEDS: CLOPIDOGREL BISULFATE 75 MG TAB PO SCH (08:02)
[2022-04-18] MEDS: ASPIRIN 81 MG ECTAB PO SCH (08:02)
[2022-04-18] MEDS: HEPARIN SODIUM/DEXTROSE 25,000 UNITS/500 ML BAG IV SCH (08:02)
[2022-04-18] MEDS: amLODIPine BESYLATE 5 MG TAB PO SCH (08:02)
[2022-04-18] MEDS: carBAMazepine 200 MG TABLET PO SCH ×2 (08:02→19:30)
[2022-04-18] MEDS: MULTIVITAMIN TAB PO SCH (08:02)
[2022-04-18] MEDS ORDERED: FUROSEMIDE 40 MG/4 ML VIAL IV ONE (08:12)
--- NOTE | 2022-04-18 08:12 | XRay Report ---
XR chest 1V portable HISTORY: Atypical Chest Pain COMPARISON: Chest 03/31/2022. FINDINGS: No pneumothorax. The heart remains mildly enlarged. There are poststernotomy changes. Sligh t progression of the interstitial/vascular thickening suggestive of mild congestive change. Suspect t race bilateral pleural effusions. No new focal lung consolidations identified. IMPRESSION: Cardiomegaly with mild congestive change and trace bilateral pleural effusions. ACT 112: Negative or not required by law. Electronically signed by: Issa Funk M.D. 04/18/2022 8:10 AM
--- NOTE | 2022-04-18 08:32 | Electrocardiogram Report ---
Test Reason : Blood Pressure : / mmHG Vent. Rate : 085 BPM Atrial Rate : 085 BPM P-R Int : 258 ms QRS Dur : 090 ms QT Int : 318 ms P-R-T Axes : 050 035 194 degrees QTc Int : 378 ms Sinus rhythm with 1st degree A-V block Chronic ST depression in multiple leads Abnormal ECG When compared with ECG of 01-APR-2022 06:01, Premature ventricular complexes are no longer Present ST depression in multiple leads slightly more pronounced Confirmed by Brayden Duenas ([id number]) on 04/18/2022 8:31:46 AM Referred By: REFERRED SELF Confirmed By:Brayden Duenas
[2022-04-18] MEDS ORDERED: NON-FORMULARY MEDICATION (Ferrous Sulfate 27 mg iron Tablet) PO SCH (09:00)
--- NOTE | 2022-04-18 09:34 | Cardiology Consultation ---
Date of Consultation April 18, 2022 Assessment & Plan (1) NSTEMI (non-ST elevated myocardial infarction): (2) CHF (congestive heart failure): (3) AAA (abdominal aortic aneurysm): 86 year old male (1) NSTEMI (non-ST elevated myocardial infarction): Pt comfortable. Continue nitropaste, UF heparin infusion. No good targets for PCI at time of recent high risk diagnostic cardiac catheterization 2 weeks ago, and patient states he prefers ongoing medical management. I discussed his case with Dr. Michaels, Director of cardiac catheterization laboratory at [facility], who had performed his procedure on 04/04/2022. Case reviewed again, and no targets for intervention felt to be present. Will advance diet. (2) CHF (congestive heart failure): Chest x-ray on presentation revealed mild congestive change with trace bilateral pleural effusions. Recent echocardiogram, with LAD territory wall motion abnormality which was new , and correlates with EKG findings of anterior ST depression and [place] LAD disease distal to CHASE to LAD touch down. Rales bilaterally at the bases. Received furosemide x 3 thus far. Will continue diuretics. Plan for furosemide 40 mg IV daily next dose 04/19/2022 (3) AAA (abdominal aortic aneurysm): 5.7 cm AAA. Has vascular surgery follow up. Tentative plan had been to delay consideration of intervention for 6 months post NSTEMI. History of Present Illness Attending Physician: Hans Hatch MD History of Present Illness Ayla Wheeler is an 86 year old male seen in cardiology consultation per the request of Dr Hill for the evaluation of chest pain, NSTEMI. The patient's primary director treasurer is Dr. Carlin of our practice. He has a longstanding history of multivessel coronary heart disease and class I-II exertional angina. He underwent CABG x 3 at [facility] in [address] Jonah Niño with CHASE graft to LAD, free radial graft from left internal mammary artery to the left first obtuse marginal, and right internal mammary artery graft to the right coronary artery. He had presented to [facility] in January, with worsening angina and ongoing medic al therapy recommended with patient noted to be at high risk for diagnostic catheterization / intervention. Two weeks ago he was admitted with worsening angina symptoms, findings of non-ST segment elevation myocardial infarction, abdominal aortic aneurysm, maximum dimension 5.7 cm. His symptoms were refractory to ongoing intensification of medical therapy and therefore he was transferred to [facility] for high risk cardiac catheterization performed 04/04/[address] Lalo Michaels. Patient was found to have severe three-vessel [place] vessel disease. The right internal mammary artery to right coronary artery was patent however diffuse up to 80% stenosis noted in the right posterolateral artery. The CHASE to LAD was patent with diffuse disease in the [place] LAD distal to the touchdown of the graft anastomosis. The left internal mammary graft to left radial artery graft was noted to have 80% disease not amenable to PCI technically. The distal LAD could not be approached from the internal mammary artery graft. Ongoing medical therapy therefore recommended. Patient notes that immediately post discharge she was feeling better however over the last 2 days he felt more chest tightness consistent with his usual "angina "and every other day for about the last week he was taking a sublingual nitroglycerin which is new for him. Yesterday he got up and ate breakfast time he felt chest tightness. He took his time, and after his morning meal took a dose of sublingual nitroglycerin. The tightness persisted so he took a second dose and it still persisted. Ultimately in the emergency room he feels the discomfort let up after having had morphine, he also received topical nitroglycerin, unfractionated heparin, 2 doses of furosemide overnight, and additional dose of furosemide intravenously this morning. At the time my assessment as an emergency room hold patient in room C5 he was comfortable. Heparin infusing. Allergies Allergy/AdvReac Type Severity Reaction Status Date / Time diltiazem AdvReac Severe red rash Verified 04/18/22 06:45 on chest Hydantoins AdvReac Severe CAUSES A Verified 04/18/22 06:45 SEIZURE phenytoin AdvReac Severe CAUSES A Verified 04/18/22 06:45 SEIZURE Home Medications Medication Instructions Recorded Confirmed Type carbamazepine 200 mg tablet 200 mg PO BID 12/28/19 04/18/22 History (Tegretol) cholecalciferol (vitamin D3) 25 1,000 unit PO QAM 12/28/19 04/18/22 History mcg (1,000 unit) tablet (Vitamin D3) ezetimibe 10 mg tablet (Zetia) 10 mg PO QPM 06/02/20 04/18/22 History ferrous sulfate 27 mg iron tablet 27 mg PO DAILY 06/02/20 04/18/22 History metoprolol tartrate 50 mg tablet 25 mg PO BID 06/02/20 04/18/22 History (Lopressor) multivitamin 1 tab PO DAILY 06/02/20 04/18/22 History rosuvastatin 40 mg tablet (Crestor) 40 mg PO QPM 06/02/20 04/18/22 History nitroglycerin 0.4 mg sublingual 0.4 mg SUBLINGUAL UD PRN #30 tab 02/17/22 04/18/22 Rx tablet (Nitrostat) amlodipine 5 mg tablet 5 mg PO DAILY 03/31/22 04/18/22 History aspirin 81 mg tablet,delayed 81 mg PO DAILY 04/17/22 04/18/22 History release clopidogrel 75 mg tablet 75 mg PO DAILY 04/17/22 04/18/22 History isosorbide mononitrate 120 mg 120 mg PO DAILYBB 04/17/22 04/18/22 History tablet,extended release 24 hr Patient History Medical History AAA (abdominal aortic aneurysm) Antiphospholipid syndrome CAD (coronary artery disease) Status post coronary bypass grafting, 1998, CHASE graft to LAD, free radial graft from left internal mammary artery to the left first obtuse marginal, and right internal mammary artery graft to the right coronary artery. 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 History of [place] (myocardial infarction) Hyperlipidemia Hypertension Lyme arthritis Lyme disease Osteoporosis Right rib fracture Seizure disorder Vitamin D deficiency Surgical History History of inguinal hernia repair History of vasectomy S/P CABG (coronary artery bypass graft) Family History Other Family history unknown Social History Smoking Status: Former smoker Tobacco Type: Cigarettes Second Hand Exposure: No; Hx Alcohol Use: No Hx Substance Use: No Preferred Language: Eritrean Communication Ability: Effective 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: No Beliefs That Will Affect Care: None marital status: Current Living Situation: Spouse and Family How many Children do You have: 5 Feels Safe at Home: Yes Assistive Devices: Cane, Walker and Wheelchair Review of Systems Review of Systems: All systems reviewed & are unremarkable except as noted in HPI & below Physical Exam Constitutional: WD/WN, vitals as above Respiratory: rales bilaterally at the bases Cardiovascular: Rate/Rhythm: regular rate and regular rhythm Heart Sounds: no murmur Extremities: no edema left femoral cath site, clean , dry and intact Gastrointestinal (Abdomen): normal bowel sounds, soft, nontender, no hepatosplenomegaly Neurologic: PERRL, EOMI, accommodation nl, no face palsy, no dysarthria Results & Data ([facility]) Vital Signs (Past 12 Hours) Vital Signs Pulse Pulse Resp BP BP Pulse Ox 04/18/22 08:30 83 18 121/84 93 04/18/22 08:00 80 22 117/71 92 04/18/22 07:30 71 18 108/61 92 04/18/22 07:00 74 19 113/69 93 04/18/22 04:34 60 16 112/67 96 04/18/22 00:32 76 18 106/68 93 04/17/22 22:31 80 18 142/77 H 90 04/17/22 21:48 88 L 04/17/22 21:45 89 26 H 152/88 H 89 L 04/17/22 21:44 85 23 149/93 H 94 04/17/22 21:30 84 26 H 94 Laboratory Results Cardiac Enzymes 04/17/22 04/17/22 04/18/22 Range/Units 21:28 22:03 04:51 AST 16 (13-39) U/L Troponin I High Sens 15.2 568.9 H* D (0-20) pg/ml B-Natriuretic Peptide 347 H (0-100) pg/ml 04/18/22 Range/Units 10:47 AST (13-39) U/L Troponin I High Sens 826.8 H* D (0-20) pg/ml B-Natriuretic Peptide (0-100) pg/ml Coagulation 04/17/22 04/17/22 Range/Units 21:28 22:03 PT 11.1 (9.0-12.0) Seconds APTT 27.1 (21.0-31.0) Seconds B-Natriuretic Peptide 347 H (0-100) pg/ml CBC 04/17/22 04/18/22 Range/Units 21:28 04:51 WBC 8.35 7.18 (4.8-10.8) K/uL RBC 3.84 L 3.77 L (4.7-6.1) M/uL Hgb 12.5 L 12.3 L (14.0-18.0) g/dL Hct 37.6 L 36.9 L (42-52) % Plt Count 233 190 (130-400) K/uL Neut # (Auto) 5.33 4.90 (1.4-6.5) K/uL Lymph # (Auto) 2.03 1.34 (1.2-3.4) K/uL [place] # (Auto) 0.58 0.67 H (0.11-0.59) K/uL Eos # (Auto) 0.39 0.24 (0-0.5) K/uL Baso # (Auto) 0.01 0.01 (0-0.2) K/uL Comprehensive Metabolic Panel 04/17/22 04/18/22 Range/Units 21:28 04:51 Sodium 141 140 (136-145) mmol/L Potassium 4.1 4.0 (3.5-5.1) mmol/L Chloride 106 105 (98-107) mmol/L Carbon Dioxide 27 29 (21-32) mmol/L BUN 17 17 (6-23) mg/dl Creatinine 0.77 0.71 (0.6-1.4) mg/dl Glucose 117 H 101 H (70-99(Fasting)) mg/dl Calcium 9.8 9.2 (8.5-10.1) mg/dl AST 16 (13-39) U/L ALT 11 (7-52) U/L Alkaline Phosphatase 95 (34-104) U/L Total Protein 7.3 (6.0-8.3) gm/dl Albumin 4.5 (3.4-5.0) gm/dl Intake and Output 04/17/22 04/18/22 04/18/22 22:59 06:59 14:59 Other: Weight 68.039 kg Weight Measurement Method Built in [facility] Diagnostic Findings EKG performed 04/18/2021 2 and reviewed independently reveals sinus rhythm at 70 bpm with long first-degree AV block, AR interval 296 ms, ST-T wave abnormality in the inferior leads consistent with ischemia. J-point elevation noted in lead V1. Compared to the previous tracing dating back to 04/17/2020 was mostly recent admission, the downsloping ST segment depression noted in the anterior precordial leads has improved. Summary of transthoracic echocardiogram performed 04/01/2022 Moderate hypokinesis of the mid to apical anterior, anteroseptal yun along with the apex, LVEF 45-50, grade 2 diastolic dysfunction, mild aortic valve sclerosis without stenosis Mild mitral regurgitation Tricuspid regurgitation Compared to the previous study performed 02/16/2022, the anteroseptal, apical wall motion abnormalities were new, LVEF had been 55 to 60% at that time. (1) CHF (congestive heart failure) Heart failure chronicity: acute Heart failure type: unspecified Qualified Code(s): I50.9 - Heart failure, unspecified
[2022-04-18 14:55] LABS: Partial Thromboplastin Ratio 1.6
--- NOTE | 2022-04-18 15:16 | Electrocardiogram Report ---
Test Reason : Blood Pressure : / mmHG Vent. Rate : 078 BPM Atrial Rate : 078 BPM P-R Int : 266 ms QRS Dur : 090 ms QT Int : 354 ms P-R-T Axes : 031 022 180 degrees QTc Int : 403 ms Sinus rhythm with 1st degree A-V block with occasional Premature ventricular complexes Chronic ST depression in multiple leads Abnormal ECG When compared with ECG of 17-APR-2022 21:22, Premature ventricular complexes are now Present Confirmed by Brayden Duenas ([id number]) on 04/18/2022 3:15:48 PM Referred By: REFERRED SELF Confirmed By:Brayden Duenas
--- NOTE | 2022-04-18 15:21 | Electrocardiogram Report ---
Test Reason : Blood Pressure : / mmHG Vent. Rate : 070 BPM Atrial Rate : 070 BPM P-R Int : 296 ms QRS Dur : 090 ms QT Int : 406 ms P-R-T Axes : 012 024 188 degrees QTc Int : 438 ms Sinus rhythm with 1st degree A-V block Chronic ST depression in multiple leads Abnormal ECG When compared with ECG of 17-APR-2022 22:40, Premature ventricular complexes are no longer Present Confirmed by Brayden Duenas ([id number]) on 04/18/2022 3:20:37 PM Referred By: REFERRED SELF Confirmed By:Brayden Duenas
--- NOTE | 2022-04-18 15:48 | Hospitalist Progress Note ---
Date of Service April 18, 2022 Assessment & Plan (1) NSTEMI (non-ST elevated myocardial infarction): Plan: 86-year-old male with past medical history significant for CAD with history of prior [place] in 1998, status post CABG 1998, angina, hypertension, hyperlipidemia, abdominal aortic aneurysm, epilepsy, right iliac artery dissection, history of Lyme arthritis, history of phospholipid syndrome, osteoporosis, history of elevated homocysteine presents 04/17 to our ED with chest pain. The patient was recently admitted to here on 03/31/2022 with chest pain and found to have non-ST elevated [place]. Because of high risk, he was transferred to [place] where he underwent cardiac cath. He has stenosis of the [place] vessels and graft stenosis, but nothing was amenable to PCI. Recommended for medical management.He is being managed for the followin. Chest pain: #. NSTEMI Pt presents 04/17 d/t chest pain for 1 day not relieved w/ multiple nitros tried at home. Exacerbating w/ ambulation. s/p nitro and morphine in ED and has been chest pain free. Pt is s/p cardiac cath 2 weeks ago [employer]ER[employer]CE[employer] (see above). Admitting trop wnl, admitting EKG ST depression in Lat leads. Trop uptrended significantly. c/w heparin, pt doesn't want intervention, wants to go with medical management only. Card evaluated, appreciate recs. 2. History of coronary artery disease, status post coronary artery bypass grafting: Continue his medication of metoprolol tartrate, Imdur, Crestor, aspirin, Plavix. 3. History of hypertension: Continue amlodipine, Imdur, Lopressor. Currently on nitroglycerin paste. We will monitor the blood pressure. 4. Mild Haoch-fe-bpqfbna systolic congestive heart failure, recent echo showed EF of 45%. At admission: pt SaO2 88% on RA, no home O2 use, CXR w/ mild congestive change and trace b/l pleural effusions. s/p multiple iv lasix doses, iv 40 mg daily from dionne card evaluated. f/u echo. 5. History of abdominal aortic aneurysm: 5.5cm Following with vascular surgery. Maintain f/u as OP. 6. Hyperlipidemia: On statin, Zetia. 7. History of seizure disorder: On Tegretol. 8. Deep venous thrombosis prophylaxis: Placed on Lovenox. DISPOSITION: Closely monitor in the tele floor. Level 1 full code only if there is chance of reasonable recovery. PT, OT prior to discharge. Social service to help with discharge planning. Admission and Anticipated Discharge Date Admission Date: April 17, 2022 Subjective Patient seen and examined at bedside as a follow-up of NSTEMI and acute on chronic systolic CHF. Patient was lying in bed, on 2 L nasal cannula oxygen, NAD, no new acute events overnight. Patient denies any chest pain while in the hospital. Patient does not want any kind of cardiac intervention, would like to go with medical management. We will resume his diet. Discussed with cardiology. Patient denies any headache/dizziness/belly pain/feeling of heart racing/other review of symptoms. Physical Exam Physical Exam: GENERAL: Alert and oriented x3. NAD, on 2L NC O2 HEENT: No pallor, no icterus. Pupils equal, round and reactive to light. Oral mucosa moist. NECK: No JVD, no neck masses. HEART: S1 and S2 heard. Regular rate and rhythm. No murmur, no gallop. RESPIRATORY SYSTEM: Normal AP diameter. No accessory muscle use. No wheezing, b/b crackles. ABDOMEN: Soft, bowel sounds present, nontender, no distention. CENTRAL NERVOUS SYSTEM: No facial droop. Speech is clear. Obeys simple commands. Moves extremities. EXTREMITIES: No edema, no erythema seen. Results & Data Results & Data ([facility]) Vital Signs (Past 12 Hours) Vital Signs Temp Pulse Pulse Resp BP BP Pulse Ox 04/18/22 15:21 36.8 C 90 18 128/73 98 04/18/22 13:01 84 15 128/59 L 92 04/18/22 13:00 87 23 94 04/18/22 12:30 80 20 98/60 L 94 04/18/22 12:00 82 21 106/65 90 04/18/22 11:30 81 15 97/61 L 92 04/18/22 11:05 77 17 95/64 L 92 04/18/22 11:04 04/18/22 11:00 81 16 95/64 L 93 04/18/22 10:30 76 17 93/53 L 92 04/18/22 10:00 74 22 91/57 L 93 04/18/22 09:30 74 18 119/62 94 04/18/22 09:00 79 17 106/63 93 04/18/22 08:30 83 18 121/84 93 04/18/22 08:00 80 22 117/71 92 04/18/22 07:30 71 18 108/61 92 04/18/22 07:00 74 19 113/69 93 04/18/22 04:34 60 16 112/67 96 Pulse Ox 04/18/22 15:21 04/18/22 13:01 04/18/22 13:00 04/18/22 12:30 04/18/22 12:00 04/18/22 11:30 04/18/22 11:05 04/18/22 11:04 92 04/18/22 11:00 04/18/22 10:30 04/18/22 10:00 04/18/22 09:30 04/18/22 09:00 04/18/22 08:30 04/18/22 08:00 04/18/22 07:30 04/18/22 07:00 04/18/22 04:34
[2022-04-18] MEDS: ROSUVASTATIN CALCIUM 20 MG TAB PO SCH (19:30)
[2022-04-18] MEDS: EZETIMIBE 10 MG TABLET PO SCH (19:31)
[2022-04-18 23:30] LABS: Partial Thromboplastin Ratio 1.7
[2022-04-18 23:33] LABS: Partial Thromboplastin Time 46.1 Seconds (21.0-31.0)
[2022-04-19] MEDS: NITROGLYCERIN 2% OINTMENT 30GM TUBE EXT SCH ×4 (00:26→17:36)
[2022-04-19] MEDS: ISOSORBIDE MONO EXTENDED REL 60 MG TABCR PO SCH (05:44)
[2022-04-19 07:30] LABS: Hematocrit (blood only) 34.2 % (42-52); Hemoglobin 11.4 g/dL (14.0-18.0); Mean Corpuscular Hemoglobin 32.2 pg (25-34); Mean Corpuscular Hgb Conc 33.3 g/dL (32-36); Mean Corpuscular Volume 96.6 fL (80-100); Mean Platelet Volume 8.8 fL (7.4-10.4); Platelet Count 173 K/uL (130-400); RDW Coefficient of Variation 12.9 % (11.5-14.5); RDW Standard Deviation 45.6 fL (36.4-46.3); Red Blood Count 3.54 M/uL (4.7-6.1); White Blood Count 7.29 K/uL (4.8-10.8)
[2022-04-19 08:08] LABS: Troponin I High Sensitivity 319.9 pg/ml (0-20)
[2022-04-19 08:27] LABS: Partial Thromboplastin Ratio 1.7
[2022-04-19 08:30] LABS: BUN Creatinine Ratio 27.9 (10-20); Calcium 8.9 mg/dl (8.5-10.1); Creatinine Clr Calc Pharmacy 78.4 ml/min; Est GFR (African American) 106.3 ml/min; Est GFR (Non-African American) 91.7 ml/min; Magnesium 1.9 mg/dl (1.7-2.4); Potassium 3.8 mmol/L (3.5-5.1)
[2022-04-19] MEDS: METOPROLOL TARTRATE 25 MG TAB PO SCH ×2 (08:39→20:17)
[2022-04-19] MEDS: amLODIPine BESYLATE 5 MG TAB PO SCH (08:39)
[2022-04-19] MEDS: ASPIRIN 81 MG ECTAB PO SCH (08:39)
[2022-04-19] MEDS: CHOLECALCIFEROL 1,000 UNITS 25 MCG TAB PO SCH (08:39)
[2022-04-19] MEDS: MULTIVITAMIN TAB PO SCH (08:39)
[2022-04-19] MEDS: CLOPIDOGREL BISULFATE 75 MG TAB PO SCH (08:39)
[2022-04-19] MEDS: carBAMazepine 200 MG TABLET PO SCH ×2 (08:39→20:17)
[2022-04-19 08:53] LABS: Partial Thromboplastin Time 47.3 Seconds (21.0-31.0)
[2022-04-19] MEDS: HEPARIN SODIUM/DEXTROSE 25,000 UNITS/500 ML BAG IV SCH (15:51)
--- NOTE | 2022-04-19 18:03 | Cardiology Progress Note ---
Date of Service April 19, 2022 Assessment & Plan (1) NSTEMI (non-ST elevated myocardial infarction): (2) CHF (congestive heart failure): (3) AAA (abdominal aortic aneurysm): Plan: 86 year old male (1) NSTEMI (non-ST elevated myocardial infarction): Pt comfortable. On 04/18/22, I discussed his case with Dr. Michaels, Director of cardiac catheterization laboratory at [facility], who had performed his procedure on 04/04/2022. Case reviewed again, and no targets for intervention felt to be present. DC nitro paste. Continue ASA, clopidogrel. Complete 48 hr of heparin (DC am of 04/20/22). Continue Imdur, amlodipine, metoprolol, rosuvastatin. (2) CHF (congestive heart failure): Lasix 20 mg IV in am 04/20. (3) AAA (abdominal aortic aneurysm): 5.7 cm AAA. Has vascular surgery follow up. Tentative plan had been to delay consideration of intervention for 6 months post NSTEMI. Admission and Anticipated Discharge Date Admission Date: April 17, 2022 Subjective Mr Wheeler is seen in cardiology follow up. Denies angina. Heparin infusing. Telemetry reveals SR in the 70s. Review of Systems Review of Systems: All systems reviewed & are unremarkable except as noted in HPI & below Physical Exam Constitutional: WD/WN, vitals as above Cardiovascular: Rate/Rhythm: regular rate and regular rhythm Heart Sounds: no murmur Extremities: no edema Gastrointestinal (Abdomen): normal bowel sounds, soft, nontender, no hepatosplenomegaly Neurologic: PERRL, EOMI, accommodation nl, no face palsy, no dysarthria Results & Data ([facility]) Vital Signs (Past 12 Hours) Vital Signs Temp Pulse Pulse Resp BP BP Pulse Ox 04/19/22 17:34 73 116/64 04/19/22 15:33 36.7 C 73 18 126/82 98 04/19/22 10:57 36.6 C 63 19 117/73 98 04/19/22 07:12 37.0 C 73 20 105/60 96 Laboratory Results Cardiac Enzymes 04/19/22 Range/Units 07:11 Troponin I High Sens 319.9 H* D (0-20) pg/ml Coagulation 04/18/22 04/19/22 Range/Units 22:42 07:11 APTT 46.1 H* 47.3 H* (21.0-31.0) Seconds CBC 04/19/22 Range/Units 07:11 WBC 7.29 (4.8-10.8) K/uL RBC 3.54 L (4.7-6.1) M/uL Hgb 11.4 L (14.0-18.0) g/dL Hct 34.2 L (42-52) % Plt Count 173 (130-400) K/uL Comprehensive Metabolic Panel 04/19/22 Range/Units 07:11 Sodium 136 (136-145) mmol/L Potassium 3.8 (3.5-5.1) mmol/L Chloride 102 (98-107) mmol/L Carbon Dioxide 28 (21-32) mmol/L BUN 17 (6-23) mg/dl Creatinine 0.61 (0.6-1.4) mg/dl Glucose 107 H (70-99(Fasting)) mg/dl Calcium 8.9 (8.5-10.1) mg/dl Intake and Output 04/19/22 04/19/22 04/19/22 06:59 14:59 22:59 Intake Total 391.2 / 808.017 336 / 441.983 105.983 / 441.983 Output Total 200 / 200 Balance 191.2 / 608.017 336 / 441.983 105.983 / 441.983 Intake: IV 191.2 / 358.017 36 / 141.983 105.983 / 141.983 Heparin Sodium/Dextrose 25,000 191.2 / 358.017 36 / 141.983 105.983 / 141.983 units In 500 ml @ 800 UNITS/HR 16 mls/hr IV .Q24H [facility] Rx#: [id number] Oral 200 / 450 300 / 300 Output: Urine 200 / 200 Diagnostic Findings EKG performed 04/19/22: SR with first degree AV block, occasional PVCs.Lateral ST changes. Compared to prior , the anterior repolarization changes have improved. (1) CHF (congestive heart failure) Heart failure chronicity: acute Heart failure type: unspecified Qualified Code(s): I50.9 - Heart failure, unspecified
--- NOTE | 2022-04-19 19:15 | Hospitalist Progress Note ---
Date of Service April 19, 2022 Assessment & Plan (1) NSTEMI (non-ST elevated myocardial infarction): Plan: 86-year-old male with past medical history significant for CAD with history of prior [place] in 1998, status post CABG 1998, angina, hypertension, hyperlipidemia, abdominal aortic aneurysm, epilepsy, right iliac artery dissection, history of Lyme arthritis, history of phospholipid syndrome, osteoporosis, history of elevated homocysteine presents 04/17 to our ED with chest pain. The patient was recently admitted to here on 03/31/2022 with chest pain and found to have non-ST elevated [place]. Because of high risk, he was transferred to [place] where he underwent cardiac cath. He has stenosis of the [place] vessels and graft stenosis, but nothing was amenable to PCI. Recommended for medical management.He is being managed for the followin. Chest pain: #. NSTEMI Pt presents 04/17 d/t chest pain for 1 day not relieved w/ multiple nitros tried at home. Exacerbating w/ ambulation. s/p nitro and morphine in ED and has been chest pain free. 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 Admitting trop wnl, admitting EKG ST depression in Lat leads. Trop uptrended significantly. c/w heparin x 48 hours total, pt doesn't want intervention, wants to go with medical management only. Card evaluated, appreciate recs. 2. History of coronary artery disease, status post coronary artery bypass grafting: Continue his medication of metoprolol tartrate, Imdur, Crestor, aspirin, Plavix. 3. History of hypertension: Continue amlodipine, Imdur, Lopressor. Currently on nitroglycerin paste. We will monitor the blood pressure. 4. Mild Rqrht-zb-wxlslqo systolic congestive heart failure, recent echo showed EF of 45%. At admission: pt SaO2 88% on RA, no home O2 use, CXR w/ mild congestive change and trace b/l pleural effusions. s/p multiple iv lasix doses, iv 40 mg daily from dionne card evaluated. f/u echo. 5. History of abdominal aortic aneurysm: 5.5cm Following with vascular surgery. Maintain f/u as OP. 6. Hyperlipidemia: On statin, Zetia. 7. History of seizure disorder: On Tegretol. 8. Deep venous thrombosis prophylaxis: Placed on Lovenox. DISPOSITION: Closely monitor in the tele floor. Level 1 full code only if there is chance of reasonable recovery. PT, OT prior to discharge. Social service to help with discharge planning. Admission and Anticipated Discharge Date Admission Date: April 17, 2022 Subjective Patient seen and examined at bedside as a follow-up of NSTEMI and acute on chronic systolic CHF. Patient was lying in bed, on 2 L nasal cannula oxygen, NAD. Pt had chest pain overnight relieved w/ nitro. Patient does not want any kind of cardiac intervention, would like to go with medical management. Pt can eat HH diet. Patient denies any headache/dizziness/belly pain/feeling of heart racing/other review of symptoms. Physical Exam Physical Exam: GENERAL: Alert and oriented x3. NAD, on 2L NC O2 HEENT: No pallor, no icterus. Pupils equal, round and reactive to light. Oral mucosa moist. NECK: No JVD, no neck masses. HEART: S1 and S2 heard. Regular rate and rhythm. No murmur, no gallop. RESPIRATORY SYSTEM: Normal AP diameter. No accessory muscle use. No wheezing, b/b crackles. ABDOMEN: Soft, bowel sounds present, nontender, no distention. CENTRAL NERVOUS SYSTEM: No facial droop. Speech is clear. Obeys simple commands. Moves extremities. EXTREMITIES: No edema, no erythema seen. Results & Data Results & Data ([facility]) Vital Signs (Past 12 Hours) Vital Signs Temp Pulse Pulse Resp BP BP Pulse Ox 04/19/22 17:34 73 116/64 04/19/22 15:33 36.7 C 73 18 126/82 98 04/19/22 10:57 36.6 C 63 19 117/73 98
[2022-04-19] MEDS: EZETIMIBE 10 MG TABLET PO SCH (20:17)
[2022-04-19] MEDS: ROSUVASTATIN CALCIUM 20 MG TAB PO SCH (20:17)
[2022-04-20] MEDS: ISOSORBIDE MONO EXTENDED REL 60 MG TABCR PO SCH (05:46)
[2022-04-20] MEDS ORDERED: STOP HEPARIN ORDER ONE (07:29)
[2022-04-20] MEDS: CLOPIDOGREL BISULFATE 75 MG TAB PO SCH (08:03)
[2022-04-20] MEDS: METOPROLOL TARTRATE 25 MG TAB PO SCH (08:03)
[2022-04-20] MEDS: carBAMazepine 200 MG TABLET PO SCH (08:03)
[2022-04-20] MEDS: amLODIPine BESYLATE 5 MG TAB PO SCH (08:03)
[2022-04-20] MEDS: CHOLECALCIFEROL 1,000 UNITS 25 MCG TAB PO SCH (08:03)
[2022-04-20] MEDS: MULTIVITAMIN TAB PO SCH (08:03)
[2022-04-20] MEDS: ASPIRIN 81 MG ECTAB PO SCH (08:03)
[2022-04-20 08:38] LABS: Partial Thromboplastin Ratio 1.5; Partial Thromboplastin Time 39.9 Seconds (21.0-31.0)
[2022-04-20 08:41] LABS: Hematocrit (blood only) 36.7 % (42-52); Hemoglobin 12.3 g/dL (14.0-18.0); Mean Corpuscular Hemoglobin 32.9 pg (25-34); Mean Corpuscular Hgb Conc 33.5 g/dL (32-36); Mean Corpuscular Volume 98.1 fL (80-100); Mean Platelet Volume 9.1 fL (7.4-10.4); Platelet Count 195 K/uL (130-400); RDW Coefficient of Variation 12.8 % (11.5-14.5); RDW Standard Deviation 46.1 fL (36.4-46.3); Red Blood Count 3.74 M/uL (4.7-6.1)
[2022-04-20 08:46] LABS: BUN Creatinine Ratio 18.8 (10-20); Calcium 9.4 mg/dl (8.5-10.1); Creatinine Clr Calc Pharmacy 69.3 ml/min; Est GFR (Non-African American) 87.2 ml/min; Potassium 3.6 mmol/L (3.5-5.1)
[2022-04-20] MEDS ORDERED: FUROSEMIDE INJ 20 MG/2 ML VIAL IV SCH (09:00)
--- NOTE | 2022-04-20 11:24 | Cardiology Progress Note ---
Date of Service April 20, 2022 Assessment & Plan (1) NSTEMI (non-ST elevated myocardial infarction): (2) CHF (congestive heart failure): (3) AAA (abdominal aortic aneurysm): Plan: 86 year old male (1) NSTEMI (non-ST elevated myocardial infarction): Pt comfortable. On 04/18/22, I discussed his case with Dr. Michaels, Director of cardiac catheterization laboratory at [facility], who had performed his procedure on 04/04/2022. Case reviewed again, and no targets for intervention felt to be present. Completed 48 hrs of IV heparin. Continue ASA, clopidogrel. Continue Imdur, amlodipine, metoprolol, rosuvastatin. (2) CHF (congestive heart failure): Lasix 20 mg IV in am 04/20. Discharge on furosemide 20 mg PO daily. (3) AAA (abdominal aortic aneurysm): 5.7 cm AAA. Has vascular surgery follow up. Tentative plan had been to delay consideration of intervention for 6 months post NSTEMI. Disposition: Pt stable for discharge. Imdur and amlodipine recently adjusted prior to this stay. Furosemide 20 mg daily is a new medication. Pt counseled with regards to appropriate use of SL nitroglycerin. Has current RX at home , renewed 03/23/22. Has follow up with DR Carlin in July, will arrange additional visit in 2-4 weeks, message sent to office Admission and Anticipated Discharge Date Admission Date: April 17, 2022 Subjective Mr Wheeler is seen in follow up of chest pain. Feels well. No complaints. Heparin infusion DC this am. Telemetry reveals SR in the 60s with occasional PVCs. Physical Exam Constitutional: WD/WN, vitals as above Respiratory: mild crackles, unchanged, chronic per patient Cardiovascular: Rate/Rhythm: regular rate and regular rhythm Heart Sounds: no murmur Extremities: no edema Gastrointestinal (Abdomen): normal bowel sounds, soft, nontender, no hepatosplenomegaly Neurologic: PERRL, EOMI, accommodation nl, no face palsy, no dysarthria Results & Data ([facility]) Vital Signs (Past 12 Hours) Vital Signs Temp Pulse Pulse Pulse Resp BP Pulse Ox 04/20/22 11:07 36.4 C L 73 19 113/67 98 04/20/22 07:32 36.5 C 78 19 108/68 98 04/20/22 07:29 66 04/20/22 03:02 36.8 C 67 18 129/76 98 Laboratory Results Coagulation 04/20/22 Range/Units 08:11 APTT 39.9 H (21.0-31.0) Seconds CBC 04/20/22 Range/Units 08:11 WBC 8.00 (4.8-10.8) K/uL RBC 3.74 L (4.7-6.1) M/uL Hgb 12.3 L (14.0-18.0) g/dL Hct 36.7 L (42-52) % Plt Count 195 (130-400) K/uL Comprehensive Metabolic Panel 04/20/22 Range/Units 08:11 Sodium 136 (136-145) mmol/L Potassium 3.6 (3.5-5.1) mmol/L Chloride 102 (98-107) mmol/L Carbon Dioxide 28 (21-32) mmol/L BUN 13 (6-23) mg/dl Creatinine 0.69 (0.6-1.4) mg/dl Glucose 126 H (70-99(Fasting)) mg/dl Calcium 9.4 (8.5-10.1) mg/dl Intake and Output 04/19/22 04/20/22 04/20/22 22:59 06:59 14:59 Intake Total 354.250 / 890.250 200 / 890.250 202.133 / 202.133 Output Total 200 / 600 400 / 600 Balance 154.250 / 290.250 -200 / 290.250 202.133 / 202.133 Intake: IV 154.250 / 190.250 202.133 / 202.133 Heparin Sodium/Dextrose 25,000 154.250 / 190.250 202.133 / 202.133 units In 500 ml @ 800 UNITS/HR 16 mls/hr IV .Q24H [facility] Rx#: [id number] Oral 200 / 700 200 / 700 Output: Urine 200 / 600 400 / 600 (1) CHF (congestive heart failure) Heart failure chronicity: acute Heart failure type: unspecified Qualified Code(s): I50.9 - Heart failure, unspecified
--- NOTE | 2022-04-20 12:38 | Discharge Summary ---
Date of Service April 20, 2022 Admission HPI Per Admitting Provider CHIEF COMPLAINT: Chest pain. HISTORY OF PRESENT ILLNESS: This is an 86-year-old male with past medical history significant for CAD with history of prior MA in 1998, status post CABG 1998, angina, hypertension, hyperlipidemia, abdominal aortic aneurysm, epilepsy, right iliac artery dissection, history of Lyme arthritis, history of phospholipid syndrome, osteoporosis, history of elevated homocysteine. Presents with chest pain. The patient was recently admitted to here on 03/31/2022 with chest pain and found to have non-ST elevated MA. Because of high risk, he was transferred to [facility]. Here the echo showed mild LV dysfunction with EF of 45% to 50% with moderate hypokinesis in the mid to apical regions and was started on IV heparin, nitroglycerin paste. With the nitro paste and medications, his chest pain improved .At [facility] he is status post cardiac catheterization. He has stenosis of the [place] vessels and graft stenosis, but nothing was amenable to PCI. Recommended for medical management. He remained chest pain free in [facility] and was started on Plavix. His lisinopril/hydrochlorothiazide was held and stopped as he was normotensive without it during that admission. His Imdur was changed to 120 mg p.o. daily from 60 mg b.i.d. and he was discharged. He also had a followup with vascular surgery for his abdominal aortic aneurysm, and plan was to wait for 6 months for further followup as the abdominal aortic aneurysm was increased in size to 5.5 cm. The patient gets angina, but today whole day he was having chest pain, that is the reason he came here. He took 4 nitros at home, it was not helping. With ambulation, this chest pain got a little worse. Currently in the ER, he was placed on nitroglycerin paste and morphine was given. Currently he is chest pain-free. His EKG shows ST depressions in lateral leads. Currently, resting comfortably and hemodynamically stable. Denies any headache. No blurred visions, no runny nose, no sore throat, no cough, no fever, no chills. Appetite is okay. No difficulty swallowing. Currently, no shortness of breath. No nausea, no abdominal pain. Normal bowel and bladder movements. Has some swelling in the legs. Ambulates without support at home. When he goes out, he uses a cane. ALLERGIES: DILTIAZEM,HYDANTOINS, PHENYTOIN. PAST MEDICAL HISTORY: As mentioned above. PAST SURGICAL HISTORY: CABG, left heart catheterization, dental surgery, EGD with endoscopic ultrasound, inguinal hernia repair, vasectomy. MEDICATIONS: The patient is on amlodipine 5 mg p.o. daily, aspirin 81 mg p.o. daily, carbamazepine 200 mg p.o. b.i.d., vitamin D 1000 units p.o. daily, Plavix 75 mg p.o. daily, Zetia 10 mg p.o. daily, ferrous sulfate 27 mg p.o. daily, isosorbide mononitrate 120 mg p.o. daily, metoprolol tartrate 25 mg p.o. b.i.d., multivitamin 1 tablet p.o. daily, Nitrostat 0.4 mg sublingual p.r.n., Crestor 40 mg p.o. p.m. FAMILY HISTORY: He is adopted. SOCIAL HISTORY: . He quit smoking in 1979, smoked 1 pack a day for 28 years. Alcohol occasionally. No drug use. REVIEW OF SYSTEMS: As per HPI. Rest of review of systems is negative. Admission Exam Per Admitting Provider GENERAL: The patient is of moderate build, not in acute distress. VITAL SIGNS: Temperature 36.8, pulse 80, respiratory rate 18, blood pressure 142/77, oxygen 90% on 2 liters, was 88% on room air. HEENT: Pupils equal, round and reactive to light. Extraocular muscles intact. NECK: No JVD, no neck masses. CARDIOVASCULAR: S1 and S2 heard. Regular rate and rhythm. No murmur, no gallop. RESPIRATORY SYSTEM: Normal AP diameter. No accessory muscle use. Mild bilateral crackles heard. No wheezing. ABDOMEN: Soft. Bowel sounds are present, nontender, no distention. CENTRAL NERVOUS SYSTEM: Cranial nerves II-XII grossly intact, nonfocal. EXTREMITIES: Lower extremity mild edema present, no erythema seen. Principal Diagnosis NSTEMI Mild acute on chronic systolic CHF Discharge Exam GENERAL: Alert and oriented x3. NAD, on 2L NC O2 HEENT: No pallor, no icterus. Pupils equal, round and reactive to light. Oral mucosa moist. NECK: No JVD, no neck masses. HEART: S1 and S2 heard. Regular rate and rhythm. No murmur, no gallop. RESPIRATORY SYSTEM: Normal AP diameter. No accessory muscle use. No wheezing, b/b crackles, more dry nature now. ABDOMEN: Soft, bowel sounds present, nontender, no distention. CENTRAL NERVOUS SYSTEM: No facial droop. Speech is clear. Obeys simple commands. Moves extremities. EXTREMITIES: No edema, no erythema seen. Discharge Data Allergies Allergy/AdvReac Type Severity Reaction Status Date / Time diltiazem AdvReac Severe red rash Verified 04/18/22 06:45 on chest Hydantoins AdvReac Severe CAUSES A Verified 04/18/22 06:45 SEIZURE phenytoin AdvReac Severe CAUSES A Verified 04/18/22 06:45 SEIZURE Consultations 04/17/22 22:57 ED Decision to Admit Stat 04/18/22 08:00 Consult Cardiology Routine Hospital Course (1) NSTEMI (non-ST elevated myocardial infarction): 86-year-old male with past medical history significant for CAD with history of prior MA in 1998, status post CABG 1998, angina, hypertension, hyperlipidemia, abdominal aortic aneurysm, epilepsy, right iliac artery dissection, history of Lyme arthritis, history of phospholipid syndrome, osteoporosis, history of elevated homocysteine presents 04/17 to our ED with chest pain. The patient was recently admitted to here on 03/31/2022 with chest pain and found to have non-ST elevated MA. Because of high risk, he was transferred to [facility] where he underwent cardiac cath. He has stenosis of the [place] vessels and graft stenosis, but nothing was amenable to PCI. Recommended for medical management.Hewas managed for the followin. Chest pain: #. NSTEMI Pt presents 04/17 d/t chest pain for 1 day not relieved w/ multiple nitros tried at home. Exacerbating w/ ambulation. s/p nitro and morphine in ED and has been chest pain free. 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 Admitting trop wnl, admitting EKG ST depression in Lat leads. Trop uptrended significantly. s/p heparin x 48 hours total, pt doesn't want intervention, wants to go with medical management only. Card evaluated, appreciate recs. f/u w/ pcp and cardio as OP. 2. History of coronary artery disease, status post coronary artery bypass grafting: Continue his medication of metoprolol tartrate, Imdur, Crestor, aspirin, Plavix. 3. History of hypertension: Continue amlodipine, Imdur, Lopressor. Currently on nitroglycerin paste. We will monitor the blood pressure. 4. Mild [place] systolic congestive heart failure, recent echo showed EF of 45%. At admission: pt SaO2 88% on RA, no home O2 use, CXR w/ mild congestive change and trace b/l pleural effusions. s/p multiple iv lasix doses,on PO Lasix upon dc w/ 10 meq daily KCL supplementation. CBC and BMP in a week time upon DC, f/u w/ PCP. card evaluated. lasix 20 mg daily upon DC. EcHO reviewed. 5. History of abdominal aortic aneurysm: 5.5cm Following with vascular surgery. Maintain f/u as OP. 6. Hyperlipidemia: On statin, Zetia. 7. History of seizure disorder: On Tegretol. 8. Deep venous thrombosis prophylaxis: Placed on Lovenox. Patient being discharged home with following instruction at the point of discharge: Follow-up with your primary care physician within a week time. For your chest pain, you were on heparin drip for 48 hours, you were evaluated by cardiology, follow-up with cardiology as an outpatient in 2 to 4 weeks. You have been found to have acute on chronic heart failure while inpatient, you are being discharged on 20 Mg Lasix daily. You will need 2 step test for O2 requirement prior to discharge. You have been discharged on potassium supplementation, you will need to take it as prescribed on the days you are taking your water pill Lasix. For your dry lung crackles as you have been aware about it since last year, you need to visit with lung doctor as an outpatient likely for work-up in the line of interstitial lung disease. Have further discussion with your primary care physician as an outpatient as discussed at the bedside. For your AAA 5.7 cm, you will need to follow-up with your vascular surgery as an outpatient. Get your blood work CBC and BMP done in a week time and have the results forwarded to your primary care physician. Take medications as prescribed. Total Time Total Time Spent Total Time Spent (In Minutes): 35 Discharge Plan Discharge Items Patient Disposition: Home - Self-Care Reason For Visit: CHEST PAIN Discharge Diagnosis: NSTEMI Mild acute on chronic systolic CHF Condition on Discharge: Fair Activity: Per Instructions section Non-emergency contact: Primary Care Provider Call non-emergency contact if: you have any medication questions, your symptoms worsen, your pain is not controlled and your temperature is above 101 Follow-up/Referrals: Kenny Osborn MD [Primary Care Provider] - Diet: Heart Healthy Addtl Attending Provider Instructions: Follow-up with your primary care physician within a week time. For your chest pain, you were on heparin drip for 48 hours, you were evaluated b y cardiology, follow-up with cardiology as an outpatient in 2 to 4 weeks. You have been found to have acute on chronic heart failure while inpatient, you are being discharged on 20 Mg Lasix daily. You will need 2 step test for O2 requirement prior to discharge. You have been discharged on potassium supplementation, you will need to take it as prescribed on the days you are taking your water pill Lasix. For your dry lung crackles as you have been aware about it since last year, you need to visit with lung doctor as an outpatient likely for work-up in the line of interstitial lung disease. Have further discussion with your primary care physician as an outpatient as discussed at the bedside. For your AAA 5.7 cm, you will need to follow-up with your vascular surgery as an outpatient. Get your blood work CBC and BMP done in a week time and have the results forwarded to your primary care physician. Take medications as prescribed. Pending Studies at Discharge: No Stand-Alone Forms: My [facility] [employer], Smoking Cessation Medications and DC Order Prescriptions: New furosemide 20 mg tablet 20 mg PO DAILY Qty: 30 RF: 0 potassium chloride 10 mEq capsule, extended release 10 meq PO DAILY Qty: 30 RF: 0 Continued carbamazepine [Tegretol] 200 mg Tablet 200 mg PO BID RF: 0 cholecalciferol (vitamin D3) [Vitamin D3] 25 mcg (1,000 unit) Tablet 1,000 unit PO QAM RF: 0 multivitamin Tablet 1 tab PO DAILY RF: 0 metoprolol tartrate [Lopressor] 50 mg tablet 25 mg PO BID RF: 0 ezetimibe [Zetia] 10 mg tablet 10 mg PO QPM RF: 0 rosuvastatin [Crestor] 40 mg tablet 40 mg PO QPM RF: 0 ferrous sulfate 27 mg iron Tablet 27 mg PO DAILY RF: 0 nitroglycerin [Nitrostat] 0.4 mg Tablet, Sublingual 0.4 mg sublingual UD PRN (Reason: chest pain) Qty: 30 RF: 0 amlodipine 5 mg tablet 5 mg PO DAILY RF: 0 isosorbide mononitrate 120 mg tablet extended release 24 hr 120 mg PO DAILYBB RF: 0 clopidogrel 75 mg tablet 75 mg PO DAILY RF: 0 aspirin [Aspirin Low-Strength] 81 mg Tablet,Delayed Release (Dr/Ec) 81 mg PO DAILY RF: 0 Discharge Orders: Discharge Order (Routine); Ordered 04/20/22 Ordered By: Hans Hatch Admission Data Admit Date/Time: 04/17/22 23:34 Attending Provider: Hans Hatch Admit Provider: Juan Hill Primary Care Provider: Kenny Osborn Other Providers: Juan Hill ; Lalo Clark
--- NOTE | 2022-04-20 13:38 | Electrocardiogram Report ---
Test Reason : Blood Pressure : / mmHG Vent. Rate : 077 BPM Atrial Rate : 077 BPM P-R Int : 278 ms QRS Dur : 088 ms QT Int : 416 ms P-R-T Axes : 022 025 160 degrees QTc Int : 470 ms Sinus rhythm with 1st degree A-V block with frequent Premature ventricular complexes Chronic ST depression in multple leads Abnormal ECG When compared with ECG of 18-APR-2022 10:58, Premature ventricular complexes are now Present Confirmed by Brayden Duenas ([id number]) on 04/20/2022 1:37:57 PM Referred By: REFERRED SELF Confirmed By:Brayden Duenas
== END 2022-04-20 16:30 | disposition home or self-care (01) | DRG 280 ==
LOC: ED 21:15 → EDINP 23:34 → 2S 04-18 01:17

== ENCOUNTER 2023-01-08 02:42 | Inpatient (IN) ==
--- NOTE | 2023-01-08 03:23 | Emergency Department Note ---
History of Present Illness General Chief complaint: Cardiac Assessment Time Seen by Provider: 01/08/23 03:18 History of Present Illness 87-year-old male with a history of coronary artery disease coronary artery by pass grafting x3 prior cardiac catheterizations presents with a 2-day history of intermittent substernal chest pressure that radiates down his right arm. Patient denies any nausea vomiting or diaphoresis. Patient denies shortness of breath. Patient states he believes he has a urinary tract infection and has been having problems urinating. Patient called EMS tonight for chest pain he was given 324 mg of aspirin and 2 nitro that has decreased his pain to almost completely gone. Home Medications Medication Instructions Recorded Confirmed Type carbamazepine 200 mg tablet 200 mg PO BID 12/28/19 04/18/22 History (Tegretol) cholecalciferol (vitamin D3) 25 1,000 unit PO QAM 12/28/19 04/18/22 History mcg (1,000 unit) tablet (Vitamin D3) ezetimibe 10 mg tablet (Zetia) 10 mg PO QPM 06/02/20 04/18/22 History ferrous sulfate 27 mg iron tablet 27 mg PO DAILY 06/02/20 04/18/22 History metoprolol tartrate 50 mg tablet 25 mg PO BID 06/02/20 04/18/22 History (Lopressor) multivitamin 1 tab PO DAILY 06/02/20 04/18/22 History rosuvastatin 40 mg tablet (Crestor) 40 mg PO QPM 06/02/20 04/18/22 History nitroglycerin 0.4 mg sublingual 0.4 mg sublingual UD PRN chest 02/17/22 04/18/22 Rx tablet (Nitrostat) pain #30 tabs amlodipine 5 mg tablet 5 mg PO DAILY 03/31/22 04/18/22 History aspirin 81 mg tablet,delayed 81 mg PO DAILY 04/17/22 04/18/22 History release clopidogrel 75 mg tablet 75 mg PO DAILY 04/17/22 04/18/22 History isosorbide mononitrate 120 mg 120 mg PO DAILYBB 04/17/22 04/18/22 History tablet,extended release 24 hr furosemide 20 mg tablet 20 mg PO DAILY #30 tabs 04/20/22 Rx potassium chloride 10 mEq 10 meq PO DAILY #30 caps 04/20/22 Rx capsule,extended release Allergies Allergy/AdvReac Type Severity Reaction Status Date / Time diltiazem AdvReac Severe red rash Verified 04/18/22 06:45 on chest Hydantoins AdvReac Severe CAUSES A Verified 04/18/22 06:45 SEIZURE phenytoin AdvReac Severe CAUSES A Verified 04/18/22 06:45 SEIZURE Past Med/Surg History Medical History AAA (abdominal aortic aneurysm) Antiphospholipid syndrome CAD (coronary artery disease) Status post coronary bypass grafting, 1998, CHASE graft to LAD, free radial graft from left internal mammary artery to the left first obtuse marginal, and right internal mammary artery graft to the right coronary artery. 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 History of PA (myocardial infarction) Hyperlipidemia Hypertension Lyme arthritis Lyme disease Osteoporosis Right rib fracture Seizure disorder Vitamin D deficiency Surgical History History of inguinal hernia repair History of vasectomy S/P CABG (coronary artery bypass graft) Family History Other Family history unknown Social History Smoking Status: Former smoker Tobacco Type: Cigarettes Second Hand Exposure: No; Hx Alcohol Use: No Hx Substance Use: No Preferred Language: British Communication Ability: Effective 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 Required: No Beliefs That Will Affect Care: None marital status: Current Living Situation: Spouse and Family How many Children do You have: 5 Feels Safe at Home: Yes Assistive Devices: Cane, Denture - Upper, Denture - Lower, Glasses, Walker and Wheelchair Physical Exam Vital Signs Vital Signs - 24 hr 01/08/23 03:32 01/08/23 03:18 01/08/23 04:27 Pulse Rate 76 Pulse Rate [Apical] 84 78 Pulse Rhythm [Apical] Irregular Irregular Respiratory Rate 22 18 Respiratory Depth Shallow Normal Blood Pressure [Right Arm] 127/53 L 110/57 L Blood Pressure Mean [Right Arm] 77 74 Pulse Oximetry 97 93 Oxygen Delivery Method Room Air Room Air GENERAL: Patient is awake alert in no acute distress patient is resting comfortably and showing no signs of anxiety; patient is very comfortable, not diaphoretic EYES: The conjunctivae are clear. The pupils are round and reactive. EARS, NOSE, MOUTH AND THROAT: The nose is without any evidence of any deformity. Mucous membranes are moist. Tongue is midline. NECK: The neck is nontender and supple. RESPIRATORY: Normal respiratory effort is noted there is no evidence of wheezing rhonchi or rales CARDIOVASCULAR: Regular rate and rhythm noted there no murmurs rubs or gallops normal S1 normal S2. GASTROINTESTINAL: The abdomen is soft. Abdomen is nontender. BACK: No midline tenderness or or step-off noted range of motion in flexion extension as well as rotation no signs of muscle spasm noted MUSCULOSKELETAL/EXTREMITIES: There is no evidence of gross deformity full range of motion is noted in the hips and shoulders. SKIN: There is no obvious evidence of any rash. There are no petechiae, pallor or cyanosis noted. NEUROLOGIC: Patient is awake alert and oriented x3 strength is symmetric PSYCH: Normal affect Course Reevaluation(s) Reevaluation #1: Patient was given 2 sublingual nitro while in the emergency department and he has complete resolution of his chest pain. Patient also states urinary symptoms he was started on IV Rocephin. Patient will be admitted I have advised him and his family at bedside Time: 04:46 Consultations Consultation #1: [facility] Time: 04:46 Administered Medications Nitroglycerin (Nitroglycerin Sl 0.4 Mg/Tab Tab) 0.4 mg SL PRN PRN PRN Reason: chest Stop: 02/07/23 03:22 Last Admin: 01/08/23 03:47 Dose: 0.4 mg Documented By: Admin: 01/08/23 03:37 Dose: 0.4 mg Documented By: Admin: 01/08/23 03:32 Dose: 0.4 mg Documented By: DWAYNE Critical Care Time Critical Care Time: Yes Total Critical Care Time: 35 I have personally spent greater than 35 minutes of critical care time in the direct management of this patient. This includes bedside care, interpretation of diagnostic studies, and testing, discussion with consultants, patient, and family members, and other required patient management activities. These minutes are in excess of all separately billable procedures. Medical Decision Making Medical Records Attestation: I reviewed the patient's medical records. Home Medications Current Medication List: was personally reviewed by me Laboratory Data Attestation: I reviewed the patient's lab results. Patient has an elevated white blood cell count, elevated sodium and a normal troponin and a positive urinalysis for infection as interpreted by me 01/08/23 03:05 01/08/23 03:05 Lab Results 01/08/23 01/08/23 01/08/23 Range/Units 03:05 03:05 03:05 WBC 12.92 H (4.8-10.8) K/ul RBC 3.82 L (4.70-6.10) M/uL Hgb 12.8 L (14.0-18.0) g/dl Hct 36.7 L (42.0-52.0) % MCV 96.1 (80.0-100.0) fL MCH 33.5 (25.0-34.0) pg MCHC 34.9 (32.0-36.0) g/dL RDW Std Deviation 44.0 (36.4-46.3) fL RDW Coeff of Ana 12.6 (11.5-14.5) % Plt Count 155 (130-400) K/uL MPV 9.1 L (9.4-12.4) fL Immature Gran % (Auto) 0.4 % Neut % (Auto) 79.0 % Lymph % (Auto) 12.8 % [place] % (Auto) 6.7 % Eos % (Auto) 0.9 % Baso % (Auto) 0.2 % Neut # (Auto) 10.20 H (1.40-6.50) K/uL Lymph # (Auto) 1.66 (1.2-3.4) K/uL [place] # (Auto) 0.86 H (0.11-0.59) K/uL Eos # (Auto) 0.12 (0-0.50) K/uL Baso # (Auto) 0.03 (0-0.2) K/uL Immature Gran # (Auto) 0.05 (0.01-0.20) K/uL PT 11.7 (9.0-12.0) Seconds INR 1.1 (0.9-1.1) Sodium 148 H (136-145) mmol/L Potassium 4.2 (3.5-5.1) mmol/L Chloride 109 H (98-107) mmol/L Carbon Dioxide 29 (21-32) mmol/L Anion Gap 10 (3-11) BUN 18 (6-23) mg/dl Creatinine 0.71 (0.6-1.4) mg/dl Est Cr Clr Drug Dosing Not Reportable Est GFR ( Amer) 99.2 ml/min Est GFR (Non-Af Amer) 85.6 ml/min BUN/Creatinine Ratio 25.4 H (10-20) Glucose 127 H (70-99(Fasting)) mg/dl Calcium 9.9 (8.5-10.1) mg/dl Total Bilirubin 1.0 (0.2-1.0) mg/dl AST 16 (13-39) U/L ALT 13 (7-52) U/L Alkaline Phosphatase 91 (34-104) U/L Troponin I High Sens 11.0 (0-20) pg/ml Total Protein 7.2 (6.0-8.3) gm/dl Albumin 4.5 (3.4-5.0) gm/dl Globulin 2.7 (2.5-4.0) gm/dl Albumin/Globulin Ratio 1.7 (0.9-2) Urine Color Urine Appearance (Clear) Urine pH (4.5-7.5) Ur Specific [place] (1.000-1.030) Urine Protein (Negative) Urine Glucose (UA) (Negative) Urine Ketones (Negative) Urine Blood (Negative) Urine Nitrite (Negative) Urine Bilirubin (Negative) Urine Urobilinogen (Negative) Ur Leukocyte Esterase (Negative) Urine WBC (Auto) (0-5) /hpf Urine RBC (Auto) (0-4) /hpf U Hyaline Cast (Auto) (0-5) /lpf U Epithel Cells (Auto) (0-5) /lpf Urine Bacteria (Auto) (Negative) SARS-CoV-2, RNA, NAAT (NEGATIVE) 01/08/23 01/08/23 Range/Units 03:05 03:34 WBC (4.8-10.8) K/ul RBC (4.70-6.10) M/uL Hgb (14.0-18.0) g/dl Hct (42.0-52.0) % MCV (80.0-100.0) fL MCH (25.0-34.0) pg MCHC (32.0-36.0) g/dL RDW Std Deviation (36.4-46.3) fL RDW Coeff of Ana (11.5-14.5) % Plt Count (130-400) K/uL MPV (9.4-12.4) fL Immature Gran % (Auto) % Neut % (Auto) % Lymph % (Auto) % [place] % (Auto) % Eos % (Auto) % Baso % (Auto) % Neut # (Auto) (1.40-6.50) K/uL Lymph # (Auto) (1.2-3.4) K/uL [place] # (Auto) (0.11-0.59) K/uL Eos # (Auto) (0-0.50) K/uL Baso # (Auto) (0-0.2) K/uL Immature Gran # (Auto) (0.01-0.20) K/uL PT (9.0-12.0) Seconds INR (0.9-1.1) Sodium (136-145) mmol/L Potassium (3.5-5.1) mmol/L Chloride (98-107) mmol/L Carbon Dioxide (21-32) mmol/L Anion Gap (3-11) BUN (6-23) mg/dl Creatinine (0.6-1.4) mg/dl Est Cr Clr Drug Dosing Est GFR ( Amer) ml/min Est GFR (Non-Af Amer) ml/min BUN/Creatinine Ratio (10-20) Glucose (70-99(Fasting)) mg/dl Calcium (8.5-10.1) mg/dl Total Bilirubin (0.2-1.0) mg/dl AST (13-39) U/L ALT (7-52) U/L Alkaline Phosphatase (34-104) U/L Troponin I High Sens (0-20) pg/ml Total Protein (6.0-8.3) gm/dl Albumin (3.4-5.0) gm/dl Globulin (2.5-4.0) gm/dl Albumin/Globulin Ratio (0.9-2) Urine Color [place] Urine Appearance Turbid A (Clear) Urine pH 6.5 (4.5-7.5) Ur Specific [place] 1.026 (1.000-1.030) Urine Protein 3+ H (Negative) Urine Glucose (UA) Negative (Negative) Urine Ketones 2+ H (Negative) Urine Blood 3+ H (Negative) Urine Nitrite Positive A (Negative) Urine Bilirubin Negative (Negative) Urine Urobilinogen Negative (Negative) Ur Leukocyte Esterase 3+ H (Negative) Urine WBC (Auto) >30 H (0-5) /hpf Urine RBC (Auto) >30 H (0-4) /hpf U Hyaline Cast (Auto) 1-5 (0-5) /lpf U Epithel Cells (Auto) 10-20 H (0-5) /lpf Urine Bacteria (Auto) 4+ H (Negative) SARS-CoV-2, RNA, NAAT NEGATIVE (NEGATIVE) Imaging Data Attestation: I personally reviewed and interpreted this imaging study as follows: My Impression: Chest x-ray interpreted by me cardiomegaly normal mediastinum no obvious pneumothorax ECG Data Attestation: I personally reviewed and interpreted this ECG as follows: Additional Comments: EKG interpreted by me rate of 82 first-degree AV block sinus rhythm PVCs nonspecific ST-T change is T wave inversions in 1 and aVL this is changed compared to an EKG of May 2022 ;EMS' EKG showed T wave inversions with ST depression in 1 and aVL as well as ST segment elevation in lead III and aVR which is unchanged from June 05, 2022 and April 17, 2022 in the EKG in [employer] system EKG #2 timed at 3:26 AM interpreted by me sinus rhythm rate of 83 first-degree AV block occasional PVCs nonspecific ST-T change in 1 and aVL no obvious ST segment elevation in 3 and aVF there is ST segment elevation in aVR and there are T wave inversions in V2 and V3 MDM Narrative Medical decision making differential diagnosis angina, unstable angina, acute coronary syndrome, acute PA, pleurisy, patient complains of urinary symptoms, urinary tract infection urinary retention Plan is to check labs, EKG, chest x-ray External medical records were reviewed EMS report was given to me at bedside EKGs in [employer] system were reviewed by me Patient has extensive cardiac history is currently very comfortable he has had EKG changes that appear and seem to be similar to prior EKGs in 2021 At this point time I did not activate a STEMI alert as the patient appears very comfortable and our EKG does not show ST segment elevation in 2 contiguous leads Patient required another 2 sublingual nitro and is completely pain-free, patient's heart score is moderate, patient has a urinary tract infection was treated with Rocephin. Case was discussed with the [facility] hospitalist for admission for potential unstable angina and urinary tract infection Impression & Plan Chest pain, Unstable angina pectoris, Abnormal ECG, Acute UTI (urinary tract infection) Discharge Plan Visit Data Chief Complaint: Cardiac Assessment ED Provider: Biju Gould Discharge Problem: Chest pain, Unstable angina pectoris, Abnormal ECG, Acute UTI (urinary tract infection) Patient Disposition: Admitted As Inpatient Forms Stand Alone Forms: [facility] Prescriptions Prescriptions: No Action carbamazepine [Tegretol] 200 mg Tablet 200 mg PO BID cholecalciferol (vitamin D3) [Vitamin D3] 25 mcg (1,000 unit) Tablet 1,000 unit PO QAM multivitamin Tablet 1 tab PO DAILY metoprolol tartrate [Lopressor] 50 mg tablet 25 mg PO BID ezetimibe [Zetia] 10 mg tablet 10 mg PO QPM rosuvastatin [Crestor] 40 mg tablet 40 mg PO QPM ferrous sulfate 27 mg iron Tablet 27 mg PO DAILY nitroglycerin [Nitrostat] 0.4 mg Tablet, Sublingual 0.4 mg sublingual UD PRN (Reason: chest pain) Qty: 30 0RF amlodipine 5 mg tablet 5 mg PO DAILY isosorbide mononitrate 120 mg tablet extended release 24 hr 120 mg PO DAILYBB clopidogrel 75 mg tablet 75 mg PO DAILY aspirin 81 mg Tablet,Delayed Release (Dr/Ec) 81 mg PO DAILY furosemide 20 mg tablet 20 mg PO DAILY Qty: 30 0RF potassium chloride 10 mEq capsule, extended release 10 meq PO DAILY Qty: 30 0RF Referrals Referrals: Kenny Osborn MD [Primary Care Provider] -
[2023-01-08] MEDS: NITROGLYCERIN SL 0.4 MG/TAB TAB SL PRN ×5 (03:32→07:59)
[2023-01-08 04:22] LABS: Albumin Level 4.5 gm/dl (3.4-5.0); Anion Gap 10 (3-11); Calcium 9.9 mg/dl (8.5-10.1); Carbon Dioxide 29 mmol/L (21-32); Chloride 109 mmol/L (98-107); Potassium 4.2 mmol/L (3.5-5.1); Sodium 148 mmol/L (136-145)
[2023-01-08 04:28] LABS: Alanine Aminotransferase 13 U/L (7-52); Albumin Globulin Ratio 1.7 (0.9-2); Alkaline Phosphatase 91 U/L (34-104); Aspartate Aminotransferase 16 U/L (13-39); BUN Creatinine Ratio 25.4 (10-20); Blood Urea Nitrogen 18 mg/dl (6-23); Est GFR (African American) 99.2 ml/min; Est GFR (Non-African American) 85.6 ml/min; Globulin 2.7 gm/dl (2.5-4.0); Glucose 127 mg/dl (70-99(Fasting)); Total Protein 7.2 gm/dl (6.0-8.3)
[2023-01-08 04:30] LABS: Appearance Urine Turbid (Clear); Bacteria Urine Automated 4+ (Negative); Bilirubin Urine Negative (Negative); Blood Urine 3+ (Negative); Color Urine Orange; Glucose Urine UA Negative (Negative); Ketones Urine 2+ (Negative); Leukocyte Esterase Urine 3+ (Negative); Nitrite Urine Positive (Negative); Protein Urine 3+ (Negative); RBC Urine Automated >30 /hpf (0-4); Specific Gravity Urine 1.026 (1.000-1.030); Urobilinogen Urine Negative (Negative); WBC Urine Automated >30 /hpf (0-5); pH Urine 6.5 (4.5-7.5)
[2023-01-08 04:37] LABS: Basophils # (auto) 0.03 K/uL (0-0.2); Basophils % (auto) 0.2 %; Eosinophils # (auto) 0.12 K/uL (0-0.50); Eosinophils % (auto) 0.9 %; Hematocrit (blood only) 36.7 % (42.0-52.0); Hemoglobin 12.8 g/dl (14.0-18.0); Immature Granulocytes # (auto) 0.05 K/uL (0.01-0.20); Immature Granulocytes % (auto) 0.4 %; Lymphocytes # (auto) 1.66 K/uL (1.2-3.4); Lymphocytes % (auto) 12.8 %; Mean Corpuscular Hemoglobin 33.5 pg (25.0-34.0); Mean Corpuscular Hgb Conc 34.9 g/dL (32.0-36.0); Mean Corpuscular Volume 96.1 fL (80.0-100.0); Mean Platelet Volume 9.1 fL (9.4-12.4); Monocytes # (auto) 0.86 K/uL (0.11-0.59); Monocytes % (auto) 6.7 %; Platelet Count 155 K/uL (130-400); RDW Coefficient of Variation 12.6 % (11.5-14.5); Red Blood Count 3.82 M/uL (4.70-6.10); White Blood Count 12.92 K/ul (4.8-10.8)
[2023-01-08] MEDS ORDERED: cefTRIAXone SODIUM 1,000 MG in DEXTROSE 5% AD-VAN 50 ML IV STA (04:38)
[2023-01-08 04:44] LABS: INR 1.1 (0.9-1.1); Prothrombin Time 11.7 Seconds (9.0-12.0)
[2023-01-08] MEDS ORDERED: ONDANSETRON INJ 2 MG/ML 2 ML VIAL IV PRN (06:42)
[2023-01-08] MEDS ORDERED: ACETAMINOPHEN 325 MG TAB PO PRN (06:42)
[2023-01-08] MEDS ORDERED: POLYETHYLENE (MIRALAX) 17 GM PACK PO PRN (06:42)
--- NOTE | 2023-01-08 07:20 | History and Physical Report ---
DATE OF ADMISSION: 01/08/2023 CHIEF COMPLAINT: Chest pain. HISTORY OF PRESENT ILLNESS: An 87-year-old male with past medical history significant for hypertension, history of CAD, status post CABG; history of chronic systolic CHF, dissection of iliac artery, abdominal aortic aneurysm, hyperlipidemia, eczema, osteoporosis, seizures, and iron deficiency anemia, who lives at home presents with chest pain. The patient has class III angina pectoris. He takes nitro at home as needed, but since yesterday afternoon, he is getting chest pain moderate in severity and getting worse with minimal activity and shortness of breath with minimal exertion. He was taking nitro and the pain goes away for a few hours and is coming back again and that is the reason he came here. He received nitro and currently pain is resolved. Resting comfortably on the chair. He says when he is resting, he is okay, but when he moves, he gets chest pain and also shortness of breath. Denies any headache. No dizziness. No blurred visions. No earache. No runny nose. No sore throat. No cough. No difficulty swallowing. Appetite is down since yesterday. He was nauseous. No abdominal pain. Had some burning micturition today. Denies any fevers. Bowel movements are okay. Currently, no swelling in the legs. Generally ambulates with a walker. ALLERGIES: DILTIAZEM, HYDANTOINS, AND PHENYTOIN. PAST MEDICAL HISTORY: As mentioned above. PAST SURGICAL HISTORY: Upper endoscopy, CABG, colonoscopy, dental surgery, EGD with endoscopic ultrasound, inguinal hernia repair, and vasectomy. MEDICATIONS: Amlodipine 5 mg p.o. b.i.d., aspirin 81 mg p.o. daily, carbamazepine 200 mg p.o. b.i.d., vitamin D 1000 units p.o. a.m., Plavix 75 mg p.o. daily, Zetia 10 mg p.o. a.m., ferrous sulfate 27 mg p.o. daily, Lasix 20 mg p.o. daily, Imdur 120 mg p.o. daily, Lopressor 25 mg p.o. b.i.d., multivitamin 1 tablet p.o. daily, nitroglycerin 0.4 mg sublingual p.r.n., rosuvastatin 40 mg p.o. p.m., and spironolactone 25 mg p.o. daily. FAMILY HISTORY: Significant for no history on file. SOCIAL HISTORY: . Smoked 1 pack a day for 28 years. Occasional cigar. Alcohol occasional. No drug use. REVIEW OF SYSTEMS: As per HPI. Rest of the review of systems is negative. PHYSICAL EXAMINATION: GENERAL: The patient is old and frail, not in acute distress. VITAL SIGNS: Temperature afebrile, pulse 78, respiratory rate 18, blood pressure 110/57, and oxygen saturation 93% on room air. HEENT: Pupils equal, round, and reactive to light. Oral mucosa moist. NECK: No JVD. No neck masses. CARDIOVASCULAR: S1 and S2 heard. Regular rate and rhythm. No murmur. No gallop. RESPIRATORY SYSTEM: Normal AP diameter. No accessory muscle use. No wheezing or crackles. ABDOMEN: Soft. Bowel sounds present. Nontender. No distention. CENTRAL NERVOUS SYSTEM: Alert and oriented. Speech is clear. No facial droop. Obeys simple commands. Moves extremities. EXTREMITIES: Trace pedal edema. No erythema seen. LABORATORY DATA: WBC 12.9, hemoglobin 12.8, hematocrit 36.7, and platelets 155. PT 11.7 and INR 1.1. Sodium 140, potassium 4.2, chloride 109, CO2 of 29, BUN 18, creatinine 0.7, serum glucose 127, and calcium 9.9. Total bilirubin 1, AST 16, ALT 13, and alkaline phosphatase 91. Troponin I high sensitivity 11. Urinalysis positive for nitrite, +3 leukocyte esterase, and +4 bacteria. SARS-CoV-2 rapid test negative. IMAGING DATA: Chest x-ray: Mild congestion seen. EKG: Sinus rhythm with first-degree AV block with occasional PVCs and marked ST abnormalities. ASSESSMENT AND PLAN: This is an 87-year-old male, who presents with chest pain. 1. Chest pain, possible unstable angina, history of coronary artery disease, status post coronary artery bypass graft in 1998, and history of class III angina pectoris. There is a question of ST elevation in lead III for EMS. Currently, chest pain resolved with nitro and troponins are negative. EKG here has no acute ST elevations in ER. Possible unstable angina as the patient is having ongoing chest pain since yesterday afternoon, relieved by nitro, but then coming back. We will keep him n.p.o., follow serial enzymes, echocardiogram, consult cardiology for further recommendation, and closely monitor in on floor. 2. History of coronary artery disease, status post coronary artery bypass graft and history of angina pectoris. Continue his home medication of aspirin, Plavix, amlodipine, Imdur, metoprolol, and statin. 3. History of chronic systolic congestive heart failure. Echo done in March of 2022 showed EF of 45% to 50%, grade 1 diastolic dysfunction, and mild pulmonary hypertension with 55 mmHg. Continue his home medications of Lasix, spironolactone, metoprolol, and Imdur. We will monitor for any volume overload. 4. History of abdominal aortic aneurysm, seems to be 5.3 cm, following with vascular. We will get an ultrasound. 5. Hypertension. Continue his home medication of metoprolol, Imdur, amlodipine, and diuretics. We will monitor the blood pressure. 6. Hyperlipidemia, on statin. 7. 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 8. Urinary tract infection. The patient has burning micturition. UA was positive and has elevated white count. ER started on Rocephin, which will be continued.Will follow cultures. 9. Deep venous thrombosis prophylaxis, sequential compression devices for now. DISPOSITION: Closely monitor on tele floor. Level 1 full code if chance of recovery as per discussion with the patient and .. Job ID: [id number] [facility]
[2023-01-08 07:21] LABS: Basophils # (auto) 0.02 K/uL (0-0.2); Basophils % (auto) 0.2 %; Eosinophils # (auto) 0.02 K/uL (0-0.50); Eosinophils % (auto) 0.2 %; Hematocrit (blood only) 36.7 % (42.0-52.0); Hemoglobin 12.3 g/dl (14.0-18.0); Immature Granulocytes # (auto) 0.07 K/uL (0.01-0.20); Immature Granulocytes % (auto) 0.5 %; Lymphocytes # (auto) 0.94 K/uL (1.2-3.4); Lymphocytes % (auto) 7.1 %; Mean Corpuscular Hemoglobin 32.5 pg (25.0-34.0); Mean Corpuscular Hgb Conc 33.5 g/dL (32.0-36.0); Mean Corpuscular Volume 96.8 fL (80.0-100.0); Mean Platelet Volume 8.7 fL (9.4-12.4); Monocytes # (auto) 0.82 K/uL (0.11-0.59); Monocytes % (auto) 6.2 %; Neutrophils # (auto) 11.29 K/uL (1.40-6.50); Neutrophils % (auto) 85.8 %; Platelet Count 138 K/uL (130-400); RDW Coefficient of Variation 12.4 % (11.5-14.5); RDW Standard Deviation 44.3 fL (36.4-46.3); Red Blood Count 3.79 M/uL (4.70-6.10); White Blood Count 13.16 K/ul (4.8-10.8)
[2023-01-08 07:33] LABS: BUN Creatinine Ratio 23.1 (10-20); Calcium 9.7 mg/dl (8.5-10.1); Creatinine Clr Calc Pharmacy 64.2 ml/min; Est GFR (African American) 102.8 ml/min; Est GFR (Non-African American) 88.7 ml/min; Magnesium 2.1 mg/dl (1.7-2.4); Potassium 3.9 mmol/L (3.5-5.1)
[2023-01-08 07:42] LABS: Troponin I High Sensitivity 19.4 pg/ml (0-20)
[2023-01-08] MEDS ORDERED: Heparin IV Adult Wt-Based Standard *NO* Bolus Protocol IV STA (07:55)
--- NOTE | 2023-01-08 08:01 | Cardiology Consultation ---
Date of Consultation January 08, 2023 Assessment & Plan (1) CAD (coronary artery disease): (2) History of coronary artery bypass graft x 3: (3) Stable angina pectoris: (4) Abnormal ECG: Plan Medically complex 87-year-old male with chronic coronary artery disease and chronic stable angina. Progression of anginal symptoms yesterday with multiple uses of sublingual nitro. Patient has a chronically abnormal EKG, EKG and patient generally unchanged from prior outpatient EKGs. High-sensitivity troponins negative x2. x1 minimally elevated- unlikely to be related to ACS. [place] [facility] [place] showed severe CAD with limited options for intervention. Recommended medical management at the time. 1. Increase metoprolol to tartrate to 25 mg 3 times daily 2. Continue Imdur 120 mg daily- stop Nitro paste. 3. Continue dual antiplatelet therapy with aspirin and Plavix as ordered- stop IV heparin, okay to eat. 4. We did discuss alternative interventions to his chronic and complex CAD. Patient considering second opinion at an outside facility like [facility]. 5. Continue all other cardiac medications as ordered. 6. UTI treatment per primary team. Case discussed with Dr. Stevenson- will follow while patient is admitted. Supervising Physician Co-Signing Physician Notes I have reviewed the advanced practitioner documentation and agree. I saw and evaluated the patient on date of service referenced in note and have performed the following medically appropriate history and/or exam: Patient with recurrent chest discomfort but coronary anatomy that is not amenable to intervention. Will attempt to further maximize medical regimen by increasing frequency of metoprolol. Unfortunately, not a candidate for Ranexa given the fact he is on Tegretol for epilepsy. History of Present Illness Reason for Consultation: Chest pain Requesting Physician: Yi bautista Attending Physician: Hans Hatch MD History of Present Illness Medically complex 87-year-old male with a history of chronic and complex coronary artery disease. 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 Last evaluated by the undersigned in September as an outpatient. Presented to [facility] emergency department yesterday due to progressive chest discomfort accompanied by shortness of breath with minimal exertion. Was taking sublingual nitroglycerin with minimal relief in symptoms. Normally takes SL nitro x1 tab 4-5 days per week. In the emergency department he was found to have a UTI and was treated with Rocephin. Labs: Elevated white count, hemoglobin stable, platelets within normal limits. Renal function and electrolytes stable. High-sensitivity troponin negative x2 (11>>19.4). Urine positive for UTI. Of note patient had [place] cardiac [place] [facility] [place], results showed severe resighini vessel disease and proximal LRA disease. PCI options were high risk and technically limited, recommended medical management of NSTEMI at that time. Upon entrance into the room patient resting on the edge of the bed. at bedside. Feeling much improved since nitro-paste was applied, CP now about a 3/10, previously 7-8/10. No shortness of breath. No palpitations, dizziness, or syncope. States he takes his Imdur every morning and around 1-3 am he wakes up with chest pain. Tele: SR with PVCs 70-90s. Past medical history: 1. ASCVD- ICM (LVEF 45-50% per echo 03/2022) a.CAD, prior inferoseptal myocardial infarction, 02/1999 b.Status post CABG, 1998 with CHASE to LAD, free radial graft from CHASE to left 1st OM and ALLEY graft to the RCA c.S/p diagnostic cardiac [place] [facility] [place] resighini vessel and graft stenosis but nothing amendable to PCI. Recommended medical management, 04/04/2022 d.Class 3 angina pectoris e.Unable to take Ranexa due to use of Tegretol for seizure disorder. 2. Hypertension 3. Hyperlipidemia 4. Abdominal aortic aneurysm 5.3 cm per duplex 05/2021- following with vascular 5. Fibrotic changes of the lungs Allergies Allergy/AdvReac Type Severity Reaction Status Date / Time diltiazem AdvReac Severe red rash Verified 04/18/22 06:45 on chest Hydantoins AdvReac Severe CAUSES A Verified 04/18/22 06:45 SEIZURE phenytoin AdvReac Severe CAUSES A Verified 04/18/22 06:45 SEIZURE Home Medications Medication Instructions Recorded Confirmed Type carbamazepine 200 mg tablet 200 mg PO BID 12/28/19 04/18/22 History (Tegretol) cholecalciferol (vitamin D3) 25 1,000 unit PO QAM 12/28/19 04/18/22 History mcg (1,000 unit) tablet (Vitamin D3) ezetimibe 10 mg tablet (Zetia) 10 mg PO QPM 06/02/20 04/18/22 History ferrous sulfate 27 mg iron tablet 27 mg PO DAILY 06/02/20 04/18/22 History metoprolol tartrate 50 mg tablet 25 mg PO BID 06/02/20 04/18/22 History (Lopressor) multivitamin 1 tab PO DAILY 06/02/20 04/18/22 History rosuvastatin 40 mg tablet (Crestor) 40 mg PO QPM 06/02/20 04/18/22 History nitroglycerin 0.4 mg sublingual 0.4 mg sublingual UD PRN chest 02/17/22 04/18/22 Rx tablet (Nitrostat) pain #30 tabs amlodipine 5 mg tablet 5 mg PO BID 03/31/22 04/18/22 History aspirin 81 mg tablet,delayed 81 mg PO DAILY 04/17/22 04/18/22 History release clopidogrel 75 mg tablet 75 mg PO DAILY 04/17/22 04/18/22 History isosorbide mononitrate 120 mg 120 mg PO DAILYBB 04/17/22 04/18/22 History tablet,extended release 24 hr furosemide 20 mg tablet 20 mg PO DAILY #30 tabs 04/20/22 Rx spironolactone 25 mg tablet 25 mg PO DAILY 01/08/23 01/08/23 History Patient History Medical History (Updated 01/08/23 @ 09:53 by AYSHA Parisi) Abnormal EKG Antiphospholipid syndrome CAD (coronary artery disease) Status post coronary bypass grafting, 1998, CHASE graft to LAD, free radial graft from left internal mammary artery to the left first obtuse marginal, and right internal mammary artery graft to the right coronary artery. 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 History of [place] (myocardial infarction) Hyperlipidemia Hypertension Lyme arthritis Lyme disease Osteoporosis Right rib fracture Unstable angina Vitamin D deficiency Surgical History History of inguinal hernia repair History of vasectomy S/P CABG (coronary artery bypass graft) Family History Other Family history unknown Social History Smoking Status: Former smoker Tobacco Type: Cigarettes Second Hand Exposure: No; Do You Dip or Chew Tobacco: No; Tobacco Cessation Education Requested by Patient: No Hx Alcohol Use: Yes Alcohol type: wine Hx Substance Use: No Preferred Language: Macedonian Communication Ability: Effective Electric Motor 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 Required: No Beliefs That Will Affect Care: None marital status: Current Living Situation: Spouse and Family How many Children do You have: 5 Other Information That Helps Us Care for You: No Feels Safe at Home: Yes Safety Concerns: Feels Safe At This Time Assistive Devices: Cane, Walker and Wheelchair Review of Systems Review of Systems: All systems reviewed & are unremarkable except as noted in HPI & below Physical Exam Constitutional: WD/WN, vitals as above + thin; no acute distress Eyes: PERRL, conjunctivae normal, anicteric sclerae ENMT: external ear and nose normal, oropharynx normal Neck: normal visual inspection and trachea midline Respiratory: normal respiratory effort, lungs clear to auscultation Cardiovascular: Rate/Rhythm: regular rate and regular rhythm Heart Sounds: normal S1 and normal S2; no murmur Vessels: no JVD Extremities: no edema Gastrointestinal (Abdomen): normal bowel sounds, soft, nontender, no hepatosplenomegaly Skin: no rashes, warm and dry Psychiatric: A+Ox3, euthymic affect Results & Data ([facility]) Vital Signs (Past 12 Hours) Vital Signs Temp Pulse Pulse Resp BP Pulse Ox O2 Del Method 01/08/23 07:26 78 115/63 01/08/23 06:46 36.9 C 79 16 148/78 H 96 Room Air 01/08/23 04:27 78 18 110/57 L 93 Room Air 01/08/23 03:18 76 01/08/23 03:32 84 22 127/53 L 97 Room Air Laboratory Results Cardiac Enzymes 01/08/23 01/08/23 Range/Units 03:05 07:01 AST 16 (13-39) U/L Troponin I High Sens 11.0 19.4 D (0-20) pg/ml Coagulation 01/08/23 Range/Units 03:05 PT 11.7 (9.0-12.0) Seconds CBC 01/08/23 01/08/23 Range/Units 03:05 07:01 WBC 12.92 H 13.16 H (4.8-10.8) K/ul RBC 3.82 L 3.79 L (4.70-6.10) M/uL Hgb 12.8 L 12.3 L (14.0-18.0) g/dl Hct 36.7 L 36.7 L (42.0-52.0) % Plt Count 155 138 (130-400) K/uL Neut # (Auto) 10.20 H 11.29 H (1.40-6.50) K/uL Lymph # (Auto) 1.66 0.94 L (1.2-3.4) K/uL Cherry # (Auto) 0.86 H 0.82 H (0.11-0.59) K/uL Eos # (Auto) 0.12 0.02 (0-0.50) K/uL Baso # (Auto) 0.03 0.02 (0-0.2) K/uL Comprehensive Metabolic Panel 01/08/23 01/08/23 Range/Units 03:05 07:01 Sodium 148 H 138 D (136-145) mmol/L Potassium 4.2 3.9 (3.5-5.1) mmol/L Chloride 109 H 102 (98-107) mmol/L Carbon Dioxide 29 31 (21-32) mmol/L BUN 18 15 (6-23) mg/dl Creatinine 0.71 0.65 (0.6-1.4) mg/dl Glucose 127 H 119 H (70-99(Fasting)) mg/dl Calcium 9.9 9.7 (8.5-10.1) mg/dl AST 16 (13-39) U/L ALT 13 (7-52) U/L Alkaline Phosphatase 91 (34-104) U/L Total Protein 7.2 (6.0-8.3) gm/dl Albumin 4.5 (3.4-5.0) gm/dl Intake and Output 01/07/23 01/08/23 01/08/23 22:59 06:59 14:59 Intake Total 50 / 50 Balance 50 / 50 Intake: IV 50 / 50 cefTRIAXone SODIUM 1,000 mg In 50 / 50 Dextrose 5% Ad-Van 50 ml @ 100 mls/hr IV NOW STA Rx#:[id number] Other: Weight 62.4 kg Weight Measurement Method Standing Scale Diagnostic Findings Echo 01/08/2023: PENDING Prior echo dated 04/18/2022 LVEF 45 to 50% LV systolic function mildly reduced Anterior lateral wall is hypokinetic Left atrium mildly dilated Grade 1 diastolic dysfunction Mild MR and TR Mild pulmonary hypertension, PASP of 55 mmHg Compared to prior echo subtle improvement in the anterior septal and apical W[place] [facility] [place] * Coronary disease - hemodynamically significant * [place] Vessels * Distal LMCA has 95% stenosis. Proximal LAD has 100% stenosis * Left circumflex has diffuse disease proximally up to 90%. There is competitive flow in the OM1 from LRA bypass * RCA has proximal 99% stenosis. * Grafts * ALLEY to RCA is patent however, there is diffuse upto 80% stenosis in the resighini rPLA * CHASE to LAD is patent with diffuse 70% resighini LAD disease distal to the anastamosis * [id number] has proximal 80% disease in the LRA. Not amenable to PCI (technically) * Left femoral artery access with 45 cm destination sheath. S/p Manual hold
[2023-01-08] MEDS ORDERED: HEPARIN SODIUM/DEXTROSE 25,000 UNITS/500 ML BAG IV SCH (08:15)
[2023-01-08] MEDS ORDERED: HEPARIN SOD (PORCINE) 1000 UNIT/ML IV ONE (08:18)
[2023-01-08] MEDS: ISOSORBIDE MONO EXTENDED REL 60 MG TABCR PO SCH (08:22)
[2023-01-08] MEDS ORDERED: NITROGLYCERIN 2% OINTMENT 30GM TUBE EXT SCH (08:30)
[2023-01-08] MEDS ORDERED: METOPROLOL TARTRATE 25 MG TAB PO SCH (09:00)
[2023-01-08] MEDS ORDERED: amLODIPine BESYLATE 5 MG TAB PO SCH (09:00)
[2023-01-08] MEDS: CLOPIDOGREL BISULFATE 75 MG TAB PO SCH (09:59)
[2023-01-08] MEDS: FERROUS SULFATE 325 MG TAB PO SCH (09:59)
[2023-01-08] MEDS: carBAMazepine 200 MG TABLET PO SCH ×2 (09:59→20:03)
[2023-01-08] MEDS: CHOLECALCIFEROL 1,000 UNITS 25 MCG TAB PO SCH (09:59)
[2023-01-08] MEDS: ASPIRIN 81 MG ECTAB PO SCH (09:59)
[2023-01-08] MEDS: METOPROLOL TARTRATE 25 MG TAB PO SCH ×3 (10:00→20:02)
[2023-01-08] MEDS: MULTIVITAMIN TAB PO SCH (10:00)
[2023-01-08] MEDS: SPIRONOLACTONE 25 MG TAB PO SCH (10:00)
[2023-01-08] MEDS: FUROSEMIDE 20 MG TAB PO SCH (10:00)
--- NOTE | 2023-01-08 10:44 | XRay Report ---
XR chest 1V portable CLINICAL HISTORY: CHEST PAIN TECHNIQUE: Single frontal radiograph of the chest was obtained. Comparison: Comparison is made to chest radiograph 04/17/2022 FINDINGS: Median sternotomy wires are unchanged. Calcified aortic knob is seen. Reticular interstitial opacitie s are seen. No evidence of pleural effusion or pneumothorax. IMPRESSION: No acute chest disease. ACT 112: Negative or not required by law. Electronically signed by: Cy Pena M.D. 01/08/2023 10:42 AM
--- NOTE | 2023-01-08 11:25 | Electrocardiogram Report ---
Test Reason : Blood Pressure : / mmHG Vent. Rate : 082 BPM Atrial Rate : 083 BPM P-R Int : 310 ms QRS Dur : 092 ms QT Int : 364 ms P-R-T Axes : 040 023 232 degrees QTc Int : 425 ms Sinus rhythm with 1st degree A-V block with occasional Premature ventricular complexes Abnormal ECG When compared with ECG of 19-APR-2022 05:48, T wave inversion more evident in Inferior leads T wave inversion now evident in Anterior leads Confirmed by Jaems Puga ([id number]) on 01/08/2023 11:25:36 AM Referred By: REFERRED SELF Confirmed By:Jh Puga
--- NOTE | 2023-01-08 14:02 | Hospitalist Progress Note ---
Date of Service January 08, 2023 Assessment & Plan (1) Acute UTI (urinary tract infection): (2) Unstable angina pectoris: Plan 87-year-old male with PMH of HTN, CAD, status post CABG, chronic systolic CHF, dissection of iliac artery, abdominal aortic aneurysm, HLD, eczema, osteop orosis, seizures, ALEJANDRA presented to the ED 01/08 with chest pain. He is being managed for the following: Likely unstable angina Patient noted to have chronically abnormal EKG, had [place] [facility] [place] which revealed lesions unamenable to intervention at that point. Patient presents with chest pain, initially with minimal activity then progressing to chest pain at rest in the hospital. Status post multiple sublingual nitro with relief when using them. was diaphorectic during exam in AM. d/w cardio, Heparin and nitropaste discontinued, metoprolol tartrate increased to 25 Mg 3 times daily. c/w prior cardiac meds incl dapt. Tele monitor. Acute UTI: Burning micturition at presentation, f/u culture, c/w 01/08 rocephin. Other chronic medical conditions: CAD, status post CABG/history of angina pectoris: Continue home aspirin, Plavix, amlodipine, Imdur, metoprolol and statin Chronic systolic CHF: March 2022 echo with EF of 45 to 50%, mild pulmonary hypertension with 55 mmHg. Continue home cardiac meds including Lasix, spironolactone. Monitor for volume overload. Abdominal aortic aneurysm: 5.3 cm, follows vascular. Patient aware. HTN/HLD --home meds DVT prophylaxis: Heparin subcu. Full code Admission and Anticipated Discharge Date Admission Date: January 08, 2023 Subjective Patient seen and examined at bedside as a follow-up of chest pain/possible unstable angina and acute UTI. Patient was lying in bed, having chest pain, despite sublingual nitroglycerin, EKG done and reviewed/ trops minimally uptrended, coordinated with cardiology and interventional cardiology, no plan for intervention due to complex history, plan for medical management, heparin and Nitropaste was started which was discontinued per cardiology recs, patient was diaphoretic, chest pain improved during the course of my stay at bedside after half an hour, patient was left hemodynamically stable and chest pain free. Patient denies headache or dizziness. RN communicated for strict bedrest. Physical Exam Physical Exam: GENERAL: Alert and oriented x3. mild distress/diaphoretic, on RA. appears old/frail. HEENT: No pallor, no icterus. Pupils equal, round and reactive to light. Oral mucosa moist. NECK: No JVD, no neck masses. Chest: midsternotomy old healed scar. HEART: S1 and S2 heard. Regular rate and rhythm. No murmur, no gallop. RESPIRATORY SYSTEM: Normal AP diameter. No accessory muscle use. No wheezing, no crackles. ABDOMEN: Soft, bowel sounds present, nontender, no distention. CENTRAL NERVOUS SYSTEM: No facial droop. Speech is clear. Obeys simple commands. Moves extremities. EXTREMITIES: No edema, no erythema seen. Results & Data Results & Data ([facility]) Vital Signs (Past 12 Hours) Vital Signs Temp Pulse Pulse Resp BP Pulse Ox O2 Del Method 01/08/23 07:00 75 01/08/23 10:58 36.9 C 69 18 105/61 92 Room Air 01/08/23 09:57 86 109/69 01/08/23 07:26 78 115/63 01/08/23 06:46 36.9 C 79 16 148/78 H 96 Room Air 01/08/23 04:27 78 18 110/57 L 93 Room Air 01/08/23 03:18 76 01/08/23 03:32 84 22 127/53 L 97 Room Air
--- NOTE | 2023-01-08 17:08 | Electrocardiogram Report ---
Test Reason : Blood Pressure : / mmHG Vent. Rate : 082 BPM Atrial Rate : 082 BPM P-R Int : 236 ms QRS Dur : 092 ms QT Int : 378 ms P-R-T Axes : 078 011 193 degrees QTc Int : 441 ms Sinus rhythm with 1st degree A-V block with occasional Premature ventricular complexes Abnormal ECG When compared with ECG of 19-APR-2022 05:48, T wave inversion more evident in Inferior leads Inverted T waves have replaced nonspecific T wave abnormality in Anterior leads Confirmed by James Puga ([id number]) on 01/08/2023 5:08:23 PM Referred By: REFERRED SELF Confirmed By:Jh Puga
--- NOTE | 2023-01-08 17:09 | Electrocardiogram Report ---
Test Reason : Blood Pressure : / mmHG Vent. Rate : 086 BPM Atrial Rate : 086 BPM P-R Int : 248 ms QRS Dur : 092 ms QT Int : 354 ms P-R-T Axes : 084 034 237 degrees QTc Int : 423 ms Poor data quality, interpretation may be adversely affected Sinus rhythm with 1st degree A-V block with frequent Premature ventricular complexes Marked ST abnormality, possible inferolateral subendocardial injury Abnormal ECG When compared with ECG of 08-JAN-2023 08:02, St segements are worse Confirmed by James Puga ([id number]) on 01/08/2023 5:08:51 PM Referred By: REFERRED SELF Confirmed By:Jh Puga
[2023-01-08] MEDS: amLODIPine BESYLATE 5 MG TAB PO SCH (20:04)
[2023-01-08] MEDS ORDERED: ROSUVASTATIN CALCIUM 20 MG TAB PO SCH (21:00)
[2023-01-08] MEDS ORDERED: EZETIMIBE 10 MG TABLET PO SCH (21:00)
[2023-01-09] MEDS: NITROGLYCERIN SL 0.4 MG/TAB TAB SL PRN ×3 (00:06→05:52)
--- NOTE | 2023-01-09 05:59 | Electrocardiogram Report ---
Test Reason : Blood Pressure : / mmHG Vent. Rate : 083 BPM Atrial Rate : 083 BPM P-R Int : 266 ms QRS Dur : 092 ms QT Int : 350 ms P-R-T Axes : 054 016 238 degrees QTc Int : 411 ms Sinus rhythm with 1st degree A-V block with occasional Premature ventricular complexes Marked ST abnormality, possible lateral subendocardial injury Abnormal ECG When compared with ECG of 08-JAN-2023 02:47, (unconfirmed) No significant change was found Confirmed by James Puga ([id number]) on 01/08/2023 5:07:35 PM Referred By: REFERRED SELF Confirmed By:Jh Puga
[2023-01-09] MEDS ORDERED: cefTRIAXone SODIUM 1,000 MG in DEXTROSE 5% AD-VAN 50 ML IV SCH (06:00)
[2023-01-09] MEDS: ISOSORBIDE MONO EXTENDED REL 60 MG TABCR PO SCH (06:12)
[2023-01-09 06:26] LABS: BUN Creatinine Ratio 20.5 (10-20); Calcium 10.1 mg/dl (8.5-10.1); Creatinine Clr Calc Pharmacy 57.1 ml/min; Est GFR (Non-African American) 84.6 ml/min; Magnesium 2.2 mg/dl (1.7-2.4); Phosphorus 3.5 mg/dl (2.5-4.9); Potassium 3.8 mmol/L (3.5-5.1)
[2023-01-09 06:38] LABS: Hematocrit (blood only) 39.3 % (42.0-52.0); Hemoglobin 13.6 g/dl (14.0-18.0); Mean Corpuscular Hemoglobin 33.3 pg (25.0-34.0); Mean Corpuscular Hgb Conc 34.6 g/dL (32.0-36.0); Mean Corpuscular Volume 96.1 fL (80.0-100.0); Mean Platelet Volume 9.2 fL (9.4-12.4); Platelet Count 161 K/uL (130-400); RDW Coefficient of Variation 12.4 % (11.5-14.5); Red Blood Count 4.09 M/uL (4.70-6.10); White Blood Count 12.75 K/ul (4.8-10.8)
--- NOTE | 2023-01-09 07:24 | Cardiology Progress Note ---
Date of Service January 09, 2023 Assessment & Plan (1) CAD (coronary artery disease): (2) History of coronary artery bypass graft x 3: (3) Stable angina pectoris: (4) Abnormal ECG: Plan Medically complex 87-year-old male with chronic coronary artery disease and chronic stable angina. Progression of anginal symptoms yesterday with multiple uses of sublingual nitro. Patient has a chronically abnormal EKG, EKG generally unchanged from prior outpatient EKGs. High-sensitivity troponin negative x2 then trended up to 125>> 164. Prior outpatient cath [place] [facility] [place] showed severe CAD with limited options for intervention. Recommended medical management at the time. Patient is not a candidate for Ranexa due to Tegretol use for epilepsy 1. Increase metoprolol to tartrate to 37.5 mg 3 times daily 2. Continue Imdur 120 mg daily- stop Nitro paste. Future considerations of adding back as an outpatient. 3. Continue dual antiplatelet therapy with aspirin and Plavix as ordered. 4. We did discuss alternative interventions to his chronic and complex CAD. At this time patient does not wish to have any further invasive procedures. He would prefer symptom management. 5. Continue all other cardiac medications as ordered. 6. UTI treatment per primary team. Case discussed with Dr. Stevenson- will follow while patient is admitted. Admission and Anticipated Discharge Date Admission Date: January 08, 2023 Supervising Physician Co-Signing Physician Notes I have reviewed the advanced practitioner documentation and agree. I saw and evaluated the patient on date of service referenced in note and have performed the following medically appropriate history and/or exam: Patient with recurrent chest discomfort but coronary anatomy that is not amenable to intervention. Will attempt to further maximize medical regimen by increasing frequency of metoprolol. Unfortunately, not a candidate for Ranexa given the fact he is on Tegretol for epilepsy. Ok to d/c to home from cardiac standpoint. Subjective Medically complex 87-year-old male with chronic complex CAD and chronic stable angina. Patient presented to [facility] due to recurrent chest discomfort. Prior cardiac cath in March 2021 showed coronary anatomy that was not amenable to intervention. 01/08: Chest pain resolved with the use of Nitro-paste. Beta-tushar increased to 25 mg 3 times daily. Not a candidate for Ranexa due to chronic Tegretol use for epilepsy. EchoLVEF mildly reduced at 45 to 50%, moderate hypokinesis of the anterior lateral wall otherwise normal wall motion. No significant change when compared to 03/2022 echo. He was also found to have UTI, treated with Rocephin 01/09: Abd US: FINDINGS: Proximal abdominal aorta was obscured. Note was again made of a mid to distal abdominal aortic aneurysm. This measures 6 x 5.7 cm. This has increased in caliber since ultrasound of April 02, 2022 when it measured 5.7 x 5.5 cm. There is mild dilatation of the left common iliac artery. At least moderate atherosclerotic plaque is noted. HS Trop- 11>>19.4>>20.8>>125.8>>164.4 Tele: SR with PVCs 80-90s Upon entrance into the room patient resting comfortably in bed- took SL nitro this am due to chest pain that occurred when he was woken up for an ultrasound. Symptoms resolved in about 30 min. No further chest pain since getting morning pills. No acute concerns. Notes that he does not wish for any invasive procedures for his CAD or his AAA- he wish for medical/symptom management. Physical Exam Constitutional: WD/WN, vitals as above + thin; no acute distress Eyes: PERRL, conjunctivae normal, anicteric sclerae ENMT: external ear and nose normal, oropharynx normal Neck: normal visual inspection and trachea midline Respiratory: normal respiratory effort, lungs clear to auscultation Cardiovascular: Rate/Rhythm: regular rate and regular rhythm Heart Sounds: normal S1 and normal S2; no murmur Vessels: no JVD Extremities: no edema Gastrointestinal (Abdomen): normal bowel sounds, soft, nontender, no hepatosplenomegaly Skin: no rashes, warm and dry Psychiatric: A+Ox3, euthymic affect Results & Data ([facility]) Vital Signs (Past 12 Hours) Vital Signs Temp Pulse Pulse Resp BP BP Pulse Ox 01/09/23 05:49 36.9 C 75 16 149/79 H 96 01/09/23 02:36 37.2 C 67 16 108/59 L 95 01/08/23 23:00 60 01/09/23 00:10 75 16 109/53 L 91 01/08/23 23:55 77 15 126/77 90 01/08/23 22:38 37.0 C 64 18 118/62 92 O2 Del Method 01/09/23 05:49 Room Air 01/09/23 02:36 Room Air 01/08/23 23:00 01/09/23 00:10 Room Air 01/08/23 23:55 Room Air 01/08/23 22:38 Room Air Laboratory Results Cardiac Enzymes 01/08/23 01/08/23 01/08/23 Range/Units 08:51 13:04 19:15 Troponin I High Sens 20.8 H 125.8 H* D 164.4 H* D (0-20) pg/ml CBC 01/09/23 Range/Units 05:44 WBC 12.75 H (4.8-10.8) K/ul RBC 4.09 L (4.70-6.10) M/uL Hgb 13.6 L (14.0-18.0) g/dl Hct 39.3 L (42.0-52.0) % Plt Count 161 (130-400) K/uL Comprehensive Metabolic Panel 01/09/23 Range/Units 05:44 Sodium 139 (136-145) mmol/L Potassium 3.8 (3.5-5.1) mmol/L Chloride 104 (98-107) mmol/L Carbon Dioxide 29 (21-32) mmol/L BUN 15 (6-23) mg/dl Creatinine 0.73 (0.6-1.4) mg/dl Glucose 108 H (70-99(Fasting)) mg/dl Calcium 10.1 (8.5-10.1) mg/dl Intake and Output 01/08/23 01/09/23 01/09/23 22:59 06:59 14:59 Intake Total 50 / 50 Output Total 451 / 1051 300 / 1051 Balance -451 / -549.2 -300 / -549.2 50 / 50 Intake: IV 50 / 50 cefTRIAXone SODIUM 1,000 mg In 50 / 50 Dextrose 5% Ad-Van 50 ml @ 100 mls/hr IV Q24H [facility] Rx#:[id number] Output: Urine 450 / 1050 300 / 1050 # Bowel Movements Other: # Unmeasured Voids 1 Weight 64.127 kg Weight Measurement Method Built in [facility]
--- NOTE | 2023-01-09 07:29 | Ultrasound Report ---
US abdominal aortic aneurysm CLINICAL HISTORY: AAA COMPARISON STUDY: CT of the abdomen June 06, 2010 and abdominal aortic ultrasound April 02, 2022. TECHNIQUE: Sonography of the abdominal aorta was performed. FINDINGS: Proximal abdominal aorta was obscured. Note was again made of a mid to distal abdominal aor tic aneurysm. This measures 6 x 5.7 cm. This has increased in caliber since ultrasound of April 02 when it measured 5.7 x 5.5 cm. There is mild dilatation of the left common iliac artery. At least m oderate atherosclerotic plaque is noted. IMPRESSION: Increase in caliber of a 6 x 5.7 cm infrarenal abdominal aortic aneurysm, as described a tab. ACT 112: Negative or not required by law. Electronically signed by: Henrique Tavares M.D. 01/09/2023 7:28 AM
[2023-01-09] MEDS: amLODIPine BESYLATE 5 MG TAB PO SCH (08:48)
[2023-01-09] MEDS: ASPIRIN 81 MG ECTAB PO SCH (08:49)
[2023-01-09] MEDS: MULTIVITAMIN TAB PO SCH (08:50)
[2023-01-09] MEDS: carBAMazepine 200 MG TABLET PO SCH (08:50)
[2023-01-09] MEDS: CLOPIDOGREL BISULFATE 75 MG TAB PO SCH (08:50)
[2023-01-09] MEDS: CHOLECALCIFEROL 1,000 UNITS 25 MCG TAB PO SCH (08:50)
[2023-01-09] MEDS: METOPROLOL TARTRATE 25 MG TAB PO SCH (08:51)
[2023-01-09] MEDS: FERROUS SULFATE 325 MG TAB PO SCH (08:51)
[2023-01-09] MEDS: FUROSEMIDE 20 MG TAB PO SCH (08:51)
[2023-01-09] MEDS: SPIRONOLACTONE 25 MG TAB PO SCH (08:51)
[2023-01-09] MEDS ORDERED: METOPROLOL TARTRATE 25 MG TAB PO ONE (10:30)
--- NOTE | 2023-01-09 10:47 | Electrocardiogram Report ---
Test Reason : Blood Pressure : / mmHG Vent. Rate : 071 BPM Atrial Rate : 071 BPM P-R Int : 246 ms QRS Dur : 090 ms QT Int : 378 ms P-R-T Axes : 000 006 171 degrees QTc Int : 410 ms Sinus rhythm with 1st degree A-V block with occasional Premature ventricular complexes Marked ST abnormality, possible lateral subendocardial injury Abnormal ECG When compared with ECG of 08-JAN-2023 08:34, ST no longer depressed in Inferior leads ST no longer depressed in Anterior leads T wave inversion less evident in Inferior leads T wave inversion less evident in Anterolateral leads Confirmed by James Puga ([id number]) on 01/09/2023 10:47:26 AM Referred By: REFERRED SELF Confirmed By:Jh Puga
--- NOTE | 2023-01-09 10:49 | Electrocardiogram Report ---
Test Reason : Blood Pressure : / mmHG Vent. Rate : 079 BPM Atrial Rate : 079 BPM P-R Int : 282 ms QRS Dur : 098 ms QT Int : 366 ms P-R-T Axes : 089 079 230 degrees QTc Int : 419 ms Sinus rhythm with 1st degree A-V block with occasional Premature ventricular complexes Marked ST abnormality, possible inferolateral subendocardial injury Abnormal ECG When compared with ECG of 09-JAN-2023 00:06, (unconfirmed) T wave inversion more evident in Inferior leads T wave inversion more evident in Anterolateral leads Confirmed by James Puga ([id number]) on 01/09/2023 10:49:42 AM Referred By: REFERRED SELF Confirmed By:Jh Puga
[2023-01-09] MEDS ORDERED: METOPROLOL TARTRATE 25 MG TAB PO SCH (14:00)
--- NOTE | 2023-01-09 16:28 | Discharge Summary ---
Date of Service January 09, 2023 Admission HPI Per Admitting Provider DATE OF ADMISSION: 01/08/2023 CHIEF COMPLAINT: Chest pain. HISTORY OF PRESENT ILLNESS: An 87-year-old male with past medical history significant for hypertension, history of CAD, status post CABG; history of chr onic systolic CHF, dissection of iliac artery, abdominal aortic aneurysm, hyperlipidemia, eczema, osteoporosis, seizures, and iron deficiency anemia, who lives at home presents with chest pain. The patient has class III angina pectoris. He takes nitro at home as needed, but since yesterday afternoon, he is getting chest pain moderate in severity and getting worse with minimal activity and shortness of breath with minimal exertion. He was taking nitro and the pain goes away for a few hours and is coming back again and that is the reason he came here. He received nitro and currently pain is resolved. Resting comfortably on the chair. He says when he is resting, he is okay, but when he moves, he gets chest pain and also shortness of breath. Denies any headache. No dizziness. No blurred visions. No earache. No runny nose. No sore throat. No cough. No difficulty swallowing. Appetite is down since yesterday. He was nauseous. No abdominal pain. Had some burning micturition today. Denies any fevers. Bowel movements are okay. Currently, no swelling in the legs. Generally ambulates with a walker. ALLERGIES: DILTIAZEM, HYDANTOINS, AND PHENYTOIN. PAST MEDICAL HISTORY: As mentioned above. PAST SURGICAL HISTORY: Upper endoscopy, CABG, colonoscopy, dental surgery, EGD with endoscopic ultrasound, inguinal hernia repair, and vasectomy. MEDICATIONS: Amlodipine 5 mg p.o. b.i.d., aspirin 81 mg p.o. daily, carbamazepine 200 mg p.o. b.i.d., vitamin D 1000 units p.o. a.m., Plavix 75 mg p.o. daily, Zetia 10 mg p.o. a.m., ferrous sulfate 27 mg p.o. daily, Lasix 20 mg p.o. daily, Imdur 120 mg p.o. daily, Lopressor 25 mg p.o. b.i.d., multivitamin 1 tablet p.o. daily, nitroglycerin 0.4 mg sublingual p.r.n., rosuvastatin 40 mg p.o. p.m., and spironolactone 25 mg p.o. daily. FAMILY HISTORY: Significant for no history on file. SOCIAL HISTORY: . Smoked 1 pack a day for 28 years. Occasional cigar. Alcohol occasional. No drug use. REVIEW OF SYSTEMS: As per HPI. Rest of the review of systems is negative. Admission Exam Per Admitting Provider GENERAL: The patient is old and frail, not in acute distress. VITAL SIGNS: Temperature afebrile, pulse 78, respiratory rate 18, blood pressure 110/57, and oxygen saturation 93% on room air. HEENT: Pupils equal, round, and reactive to light. Oral mucosa moist. NECK: No JVD. No neck masses. CARDIOVASCULAR: S1 and S2 heard. Regular rate and rhythm. No murmur. No gallop. RESPIRATORY SYSTEM: Normal AP diameter. No accessory muscle use. No wheezing or crackles. ABDOMEN: Soft. Bowel sounds present. Nontender. No distention. CENTRAL NERVOUS SYSTEM: Alert and oriented. Speech is clear. No facial droop. Obeys simple commands. Moves extremities. EXTREMITIES: Trace pedal edema. No erythema seen. Principal Diagnosis CAD Angina pectoris Discharge Exam GENERAL: Alert and oriented x3. NAD, on RA. appears old/frail. HEENT: No pallor, no icterus. Pupils equal, round and reactive to light. Oral mucosa moist. NECK: No JVD, no neck masses. Chest: midsternotomy old healed scar. HEART: S1 and S2 heard. Regular rate and rhythm. No murmur, no gallop. RESPIRATORY SYSTEM: Normal AP diameter. No accessory muscle use. No wheezing, no crackles. ABDOMEN: Soft, bowel sounds present, nontender, no distention. CENTRAL NERVOUS SYSTEM: No facial droop. Speech is clear. Obeys simple commands. Moves extremities. EXTREMITIES: No edema, no erythema seen. Discharge Data Allergies Allergy/AdvReac Type Severity Reaction Status Date / Time diltiazem AdvReac Severe red rash Verified 04/18/22 06:45 on chest Hydantoins AdvReac Severe CAUSES A Verified 04/18/22 06:45 SEIZURE phenytoin AdvReac Severe CAUSES A Verified 04/18/22 06:45 SEIZURE Consultations 01/08/23 04:50 ED Decision to Admit Stat 01/08/23 08:00 Consult Cardiology Routine Ordered Studies 01/09/23 06:42 abdominal aortic aneurysm Routine Hospital Course (1) Acute UTI (urinary tract infection): (2) Unstable angina pectoris: Plan 87-year-old male with PMH of HTN, CAD, status post CABG, chronic systolic CHF, dissection of iliac artery, abdominal aortic aneurysm, HLD, eczema, osteoporosis, seizures, ALEJANDRA presented to the ED 01/08 with chest pain. He is being managed for the following: Chest pain Likely unstable angina Patient noted to have chronically abnormal EKG, had cath at [facility] in March 2021 which revealed lesions unamenable to intervention at that point. Patient would not like to undergo cardiac cath or any intervention at this time because of his complex history that he has been aware of. Patient presented with chest pain, cardiology evaluated, metoprolol dose has been increased to 37.5 Mg 3 times a day. Patient aware. Patient denies further chest pain since last night. Patient being discharged home, to follow-up with PCP and cardiology upon discharge. Acute UTI: Burning micturition at presentation, f/u culture, c/w 01/08 rocephin. To cefdinir on discharge. Other chronic medical conditions: CAD, status post CABG/history of angina pectoris: Continue home aspirin, Plavix, amlodipine, Imdur, metoprolol and statin Chronic systolic CHF: March 2022 echo with EF of 45 to 50%, mild pulmonary hypertension with 55 mmHg. Continue home cardiac meds including Lasix, spironolactone. Monitor for volume overload. Abdominal aortic aneurysm: 5.3 cm, follows vascular. Patient aware. This size increased to 6 x 5.7 cm. Patient made aware. HTN/HLD --home meds DVT prophylaxis: Heparin subcu. Full code Patient being discharged home with following instruction at the point of discharge: Follow-up with your primary care physician within a week time and likely you will need labs CBC/CMP/magnesium/phosphorus. For your angina, cardiology evaluated you, your metoprolol dose has been increased to 37.5 Mg tablet 3 times a day. Follow-up with cardiology as an outpatient in 1 to 2 weeks. For your UTI, you will be given antibiotics for few days to complete the course. Follow-up on the final results of your urine culture with the PCP office when you visit your PCP in a week time. Take your medications as prescribed. Please make sure that you are able to get your medications today by calling your pharmacy before you leave the hospital so that your treatment continuity is not broken. Home Health Attestation I certify that this patient is under my care and that I, or a physicians health care legal assistant working with me, had a face to-face encounter that meets the home health [id number] encounter requirements with this patient. The encounter with the patient was in whole, or in part, for the following medical condition, which is the primary reason for home health care (list medical condition): I certify that, based on my findings, the following services are medically necessary home health services: My clinical findings support the need for the above services because: Further, I certify that my clinical findings support that this patient is homebound (i.e. absences from home require considerable and taxing effort and are for medical reasons or moravian services or infrequently or of short duration when for other reasons) because: Certification for Home Health Services: Based on the above findings, I certify that this patient is confined to the home and needs intermittent chcf care, physical therapy and/or speech therapy or continues to need occupational therapy. The patient is under my care, and I have initiated the establishment of the plan of care. This patient will be followed by a physician who will periodically review the plan of care. Total Time Total Time Spent Total Time Spent (In Minutes): 45 Discharge Plan Discharge Items Patient Disposition: Home - Self-Care Reason For Visit: CHEST PAIN Discharge Diagnosis: CAD Angina pectoris Activity: Resume your previous activity Non-emergency contact: Primary Care Provider Call non-emergency contact if: you have any medication questions, your symptoms worsen, your pain is not controlled and your temperature is above 101 Follow-up/Referrals: Kenny Osborn MD [Primary Care Provider] - Diet: Heart Healthy Addtl Attending Provider Instructions: Follow-up with your primary care physician within a week time and likely you will need labs CBC/CMP/magnesium/phosphorus. For your angina, cardiology evaluated you, your metoprolol dose has been increased to 37.5 Mg tablet 3 times a day. Follow-up with cardiology as an outpatient in 1 to 2 weeks. For your UTI, you will be given antibiotics for few days to complete the course. Follow-up on the final results of your urine culture with the PCP office when you visit your PCP in a week time. Take your medications as prescribed. Please make sure that you are able to get your medications today by calling your pharmacy before you leave the hospital so that your treatment continuity is not broken. Pending Studies at Discharge: Yes (Admitting urine culture final results.) Stand-Alone Forms: My [facility], Smoking Cessation Medications and DC Order Prescriptions: New metoprolol tartrate 25 mg Tablet 37.5 mg PO TID Qty: 135 0RF cefdinir 300 mg capsule 300 mg PO BID 4 Days Qty: 8 0RF Continued carbamazepine [Tegretol] 200 mg Tablet 200 mg PO BID cholecalciferol (vitamin D3) [Vitamin D3] 25 mcg (1,000 unit) Tablet 1,000 unit PO QAM multivitamin Tablet 1 tab PO DAILY ezetimibe [Zetia] 10 mg tablet 10 mg PO QPM rosuvastatin [Crestor] 40 mg tablet 40 mg PO QPM ferrous sulfate 27 mg iron Tablet 27 mg PO DAILY nitroglycerin [Nitrostat] 0.4 mg Tablet, Sublingual 0.4 mg sublingual UD PRN (Reason: chest pain) Qty: 30 0RF amlodipine 5 mg tablet 5 mg PO BID isosorbide mononitrate 120 mg tablet extended release 24 hr 120 mg PO DAILYBB clopidogrel 75 mg tablet 75 mg PO DAILY aspirin 81 mg Tablet,Delayed Release (Dr/Ec) 81 mg PO DAILY furosemide 20 mg tablet 20 mg PO DAILY Qty: 30 0RF spironolactone 25 mg tablet 25 mg PO DAILY Discontinued metoprolol tartrate [Lopressor] 50 mg tablet 25 mg PO BID Discharge Orders: Discharge Order (Routine); Ordered 01/09/23 Ordered By: Hans Hatch Admission Data Admit Date/Time: 01/08/23 05:53 Attending Provider: Hans Hatch Admit Provider: Juan Hill Primary Care Provider: Kenny Osborn Other Providers: Juan Hill ; Biju Stevenson ; Matt Garay ; Matthew Carlin ; Lalo Clark ; Cb Rodriguez ; Kenny Owens ; Mallory Carmona ; Delmi Benito ; Dipti Mota ; Jose M Nolasco
[2023-01-09] MEDS ORDERED: HEPARIN SOD 5,000 UNIT/0.5 ML VIAL SQ SCH (21:00)
== END 2023-01-09 18:12 | disposition home or self-care (01) | DRG 303 ==
LOC: ED 02:42 → 2E 05:53

== ENCOUNTER 2023-12-17 14:00 | Inpatient (IN) ==
--- NOTE | 2023-12-17 14:15 | ED Triage Note ---
Date of Service December 17, 2023 Provider in Triage Author: Jake Pruett History of Present Illness This patient was briefly evaluated while in triage. An abbreviated physical exam was performed. This patient is a 88-year-old Male who presents to the ED for evaluation of chest pain, has been taking nitro at home and took 3 today since 5am, which does help the pain, but not fully relieved. Last dose was 10:30am. Pain radiating down the right arm. A little short of breath and nausea. No vomiting, dizziness, or syncope. His doctor told him to come get checked. History of CABG in 1998 and previous inferior-septal HI in 2021. Has been getting chest/arm pain at night every night for "quite a while." Physical Exam CONSTITUTIONAL: No acute distress. Well appearing. RESPIRATORY: Diminished bilaterally, crackles in bases. Nonlabored breathing. Equal expansion bilaterally. CARDIOVASCULAR: Regular rate and rhythm. Mild bilateral peripheral edema. GASTROINTESTINAL: Soft, nontender. NEUROLOGIC: Alert and oriented X 4 with normal affect. Initial orders for labs and / or imaging were placed and patient was placed in the waiting area until a bed is available. Please see further documentation for the full ED course.
--- NOTE | 2023-12-17 14:26 | Emergency Department Note ---
Impression & Plan Unstable angina pectoris, CAD (coronary artery disease), Hypertension, History of coronary artery bypass graft x 3 ED Provider Note NAME: Ayla SIEGEL AGE: 88 SEX: M : 1935 ARRIVES VIA: Walk-In INFORMANT: [Patient][, ] ED PROVIDER(S): [Jose Solorio MD] CHIEF COMPLAINT: Chest pain MEDICAL DECISION MAKING: Patient presents due to concern for chest pain at rest with a known history of angina. Patient has no current chest pain at bedside. IV was established and blood work was obtained. The patient has a normal white count with anemia noted at 12.9 with a normal platelet count. The patient's kidney function is unremarkable. Initial troponin is negative. I did speak with the on-call maintenance journeyman Dr. Fields who recommended that the patient have Nitropaste applied and heparin drip initiated. Given the patient was having chest pain at rest with a known history of angina concern for unstable angina. I did speak with the on-call hospitalist service AYSHA Givens and the patient was admitted by Dr. Jamil. Critical Care: I have personally spent 35 minutes of critical care time in direct management of this patient. This includes bedside care, interpretation of diagnostic studies, and testing, discussion with consultants, patient, and family members, and other require inpatient management activities. This 35 minutes is in excess of all separately billable procedures. Discussion w/ other healthcare providers: Dr. Garay with cardiology Prior /Outside records reviewed: Reviewed a cardiology progress note from January 09, 2023 from actually anesthesia. Known history of CAD and CABG x 3 with a history of angina. Patient had been seen for progression of anginal symptoms with multiple uses of sublingual nitro high-sensitivity troponin negative x 2 and trend upward. Patient did have AN outpatient cath completed via [facility] from March 2021 which reportedly showed severe CAD with the limited options for intervention had recommended medical management at that time Differential diagnosis: Cardiac ischemia, aortic dissection, pulmonary embolism, pneumothorax, pneumonia, pericarditis, myocarditis, GERD, cholecystitis, pancreatitis, musculoskeletal, as well as other pathologies were considered. Diagnostics, as interpreted by me: ECG: Sinus first-degree AV block, rate 67, normal axis, T wave inversions in the lateral anterior high lateral and inferior leads. Appears somewhat improved compared to prior EKG. Borderline elevation in aVR which also appears to be chronic. Comparison is from January 09, 2023. Cardiac monitoring: An order was placed for continuous cardiac monitoring. The monitor shows a rate of 68 with sinus rhythm. [Patient was placed on pulse oximetry] Medical decision rules: Heart score Imaging studies: [I informally interpreted the patient's chest x-ray which does not show obvious pneumonia or pneumothorax with formal report to follow.] [] HPI: Patient presents due to concern for chest pain. The patient has been awoken from sleep which has been somewhat chronic in nature but was awoken this morning at 5 AM. The patient did take 3 nitro's. The patient states that an improvement in his symptoms after about 15 minutes. Patient described it as a dull ache in the right chest that did radiate to his right arm. No nausea vomiting or diaphoresis. The patient did present here today. He does have a follow-up with cardiology in March but has been trying to obtain a sooner appointment given his symptoms. No shortness of breath. Upon being brought back to his room the patient did develop some chest tightness with ambulation. The patient was placed in wheelchair and had improvement. No current chest pain at this time. The patient denies any cough or fever. Patient denies any change in leg swelling and states he has been compliant with his medications. PAST MEDICAL HISTORY: [See Below] PAST SURGICAL HISTORY: [See Below] SOCIAL HISTORY: [See Below] HOME MEDICATIONS: [See Below] ALLERGIES: [See Below] VITALS: [See Below] PHYSICAL EXAMINATION: GENERAL: NAD, non-toxic. Wearing glasses. EYE EXAM: Normal conjunctiva. PERRL, no anisocoria and EOM's grossly intact w/o pain. OROPHARYNX: Moist mucus membranes, grossly normal dentition. NECK: Trachea midline, no stridor. [Supple, no nuchal rigidity, no adenopathy, non-tender. No signs of meningismus. FROM of the neck with good chin to chest and neck extension.] LUNGS: Clear to auscultation. Normal chest wall mechanics. HEART: NSR, no MRG. ABDOMEN: Abdomen soft, non-tender, no masses, no rebound or guarding. BACK: No CVA TTP. SKIN: No rashes and no bruising. UPPER EXTREMITIES: Upper extremities are grossly normal. LOWER EXTREMITIES: Grossly normal, trace pretibial edema without any calf pain or erythema. NEURO EXAM: A&O x3, cranial nerves II-XII grossly intact, normal speech, moves all 4 extremities. Past Med/Surg History Medical History ALEJANDRA (iron deficiency anemia) Seizure disorder AAA (abdominal aortic aneurysm) Chronic combined systolic and diastolic CHF (congestive heart failure) Ischemic cardiomyopathy Stable angina pectoris Mobitz type 1 second degree atrioventricular block NSTEMI (non-ST elevated myocardial infarction) Elevated PSA Dissection of right iliac artery Antiphospholipid syndrome Osteoporosis Vitamin D deficiency History of VT (myocardial infarction) Hyperlipidemia Chronic stable angina Hypertension CAD (coronary artery disease) Status post coronary bypass grafting, 1998, CHASE graft to LAD, free radial graft from left internal mammary artery to the left first obtuse marginal, and right internal mammary artery graft to the right coronary artery. Surgical History History of inguinal hernia repair History of vasectomy S/P CABG (coronary artery bypass graft) Family History Other Family history unknown Social History Smoking Status: Former smoker Tobacco Type: Cigarettes Second Hand Exposure: No; Do You Dip or Chew Tobacco: No; Tobacco Cessation Education Requested by Patient: No Hx Alcohol Use: Yes Alcohol type: wine Hx Substance Use: No Preferred Language: [place]i Communication Ability: Effective Youth Minister Required: No Beliefs That Will Affect Care: None marital status: Current Living Situation: Spouse How many Children do You have: 5 Other Information That Helps Us Care for You: No Feels Safe at Home: Yes Assistive Devices: Cane and Glasses Allergies Allergies Allergy/AdvReac Type Severity Reaction Status Date / Time diltiazem AdvReac Severe red rash Verified 12/17/23 16:35 on chest Hydantoins AdvReac Severe CAUSES A Verified 12/17/23 16:35 SEIZURE phenytoin AdvReac Severe CAUSES A Verified 12/17/23 16:35 SEIZURE Home Meds Home Medications Medication Instructions Recorded Confirmed carbamazepine 200 mg tablet 200 mg PO BID 12/28/19 12/17/23 (Tegretol) cholecalciferol (vitamin D3) 25 1,000 unit PO QAM 12/28/19 12/17/23 mcg (1,000 unit) tablet (Vitamin D3) ezetimibe 10 mg tablet (Zetia) 10 mg PO QPM 06/02/20 12/17/23 multivitamin 1 tab PO DAILY 06/02/20 12/17/23 rosuvastatin 40 mg tablet (Crestor) 40 mg PO QAM 06/02/20 12/17/23 amlodipine 5 mg tablet 5 mg PO AMHS 03/31/22 12/17/23 aspirin 81 mg tablet,delayed 81 mg PO QAM 04/17/22 12/17/23 release clopidogrel 75 mg tablet 75 mg PO QAM 04/17/22 12/17/23 isosorbide mononitrate 120 mg 120 mg PO DAILYBB 04/17/22 12/17/23 tablet,extended release 24 hr spironolactone 25 mg tablet 25 mg PO QAM 01/08/23 12/17/23 ferrous sulfate 28 mg iron tablet 28 mg PO QAM 12/17/23 12/17/23 furosemide 20 mg tablet 20 mg PO QAM 12/17/23 12/17/23 metoprolol tartrate 50 mg tablet 50 mg PO TID 12/17/23 12/17/23 Previous Rx's Medication Instructions Recorded nitroglycerin 0.4 mg sublingual 0.4 mg sublingual UD PRN chest 02/17/22 tablet (Nitrostat) pain #30 tabs Results & Data (ED) Vital Signs Vital Signs - 24 hr 12/17/23 14:13 12/17/23 14:49 12/17/23 14:58 Temperature 36.6 C Temperature Source Temporal Artery Scan Pulse Rate 66 66 64 Pulse Rate from SpO2 Sensor 63 Respiratory Rate 20 14 Respiratory Effort / Characteristics Non-Labored Respiratory Depth Normal Blood Pressure 130/70 Blood Pressure Mean 90 Pulse Oximetry 93 95 Oxygen Delivery Method Room Air Sepsis Recent Fever Within 48 Hours No Sepsis New/Unexplained Change in Mental Status No Sepsis Action Taken by Nursing No Action Required 12/17/23 15:00 12/17/23 15:10 12/17/23 15:20 Temperature Temperature Source Pulse Rate 67 62 62 Pulse Rate from SpO2 Sensor 67 63 62 Respiratory Rate 21 Respiratory Effort / Characteristics Respiratory Depth Blood Pressure Blood Pressure Mean Pulse Oximetry 95 95 92 Oxygen Delivery Method Sepsis Recent Fever Within 48 Hours Sepsis New/Unexplained Change in Mental Status Sepsis Action Taken by Nursing 12/17/23 15:30 12/17/23 15:40 12/17/23 15:53 Temperature Temperature Source Pulse Rate 73 64 74 Pulse Rate from SpO2 Sensor 65 Respiratory Rate 15 15 15 Respiratory Effort / Characteristics Respiratory Depth Blood Pressure Blood Pressure Mean Pulse Oximetry 91 Oxygen Delivery Method Sepsis Recent Fever Within 48 Hours Sepsis New/Unexplained Change in Mental Status Sepsis Action Taken by Nursing 12/17/23 15:54 12/17/23 15:54 12/17/23 16:00 Temperature Temperature Source Pulse Rate 78 Pulse Rate from SpO2 Sensor 79 Respiratory Rate Respiratory Effort / Characteristics Respiratory Depth Blood Pressure 170/80 H 155/93 H Blood Pressure Mean 97 98 Pulse Oximetry 94 Oxygen Delivery Method Sepsis Recent Fever Within 48 Hours Sepsis New/Unexplained Change in Mental Status Sepsis Action Taken by Nursing 12/17/23 16:00 12/17/23 16:10 12/17/23 16:20 Temperature Temperature Source Pulse Rate 72 69 68 Pulse Rate from SpO2 Sensor 62 69 66 Respiratory Rate 15 16 20 Respiratory Effort / Characteristics Respiratory Depth Blood Pressure Blood Pressure Mean Pulse Oximetry 94 95 92 Oxygen Delivery Method Sepsis Recent Fever Within 48 Hours Sepsis New/Unexplained Change in Mental Status Sepsis Action Taken by Nursing 12/17/23 17:00 12/17/23 17:00 Temperature Temperature Source Pulse Rate 74 Pulse Rate from SpO2 Sensor 68 Respiratory Rate 18 Respiratory Effort / Characteristics Respiratory Depth Blood Pressure 147/91 H Blood Pressure Mean 99 Pulse Oximetry 93 Oxygen Delivery Method Sepsis Recent Fever Within 48 Hours Sepsis New/Unexplained Change in Mental Status Sepsis Action Taken by Jail Medications Current Medication List: was personally reviewed by me Laboratory Data Attestation: I reviewed the patient's lab results. 12/18/23 04:49 12/18/23 04:49 Lab Results 12/17/23 Range/Units 14:47 WBC 8.41 (4.8-10.8) K/ul RBC 3.74 L (4.70-6.10) M/uL Hgb 12.9 L (14.0-18.0) g/dl Hct 37.8 L (42.0-52.0) % MCV 101.1 H (80.0-100.0) fL MCH 34.5 H (25.0-34.0) pg MCHC 34.1 (32.0-36.0) g/dL RDW Std Deviation 52.8 H (36.4-46.3) fL RDW Coeff of Ana 14.2 (11.5-14.5) % Plt Count 182 (130-400) K/uL MPV 8.9 L (9.4-12.4) fL Immature Gran % (Auto) 0.1 % Neut % (Auto) 69.3 % Lymph % (Auto) 21.3 % [place] % (Auto) 6.7 % Eos % (Auto) 2.5 % Baso % (Auto) 0.1 % Neut # (Auto) 5.83 (1.40-6.50) K/uL Lymph # (Auto) 1.79 (1.20-3.40) K/uL [place] # (Auto) 0.56 (0.11-0.59) K/uL Eos # (Auto) 0.21 (0.00-0.50) K/uL Baso # (Auto) 0.01 (0.00-0.20) K/uL Immature Gran # (Auto) 0.01 (0.01-0.20) K/uL PT 11.3 (9.0-12.0) Seconds INR 1.0 (0.9-1.1) APTT 26 (21-31) Seconds PTT Ratio 0.9 Sodium 138 (136-145) mmol/L Potassium 3.8 (3.5-5.1) mmol/L Chloride 99 (98-107) mmol/L Carbon Dioxide 33 H (21-32) mmol/L Anion Gap 6 (3-11) BUN 15 (6-23) mg/dl Creatinine 0.57 L (0.6-1.4) mg/dl Est Cr Clr Drug Dosing 71.8 ml/min Est GFR ( Amer) 107.8 ml/min Est GFR (Non-Af Amer) 93.0 ml/min BUN/Creatinine Ratio 26.3 H (10-20) Glucose 113 H (70-99(Fasting)) mg/dl Calcium 10.1 (8.6-10.3) mg/dl Total Bilirubin 0.5 (0.2-1.0) mg/dl AST 17 (13-39) U/L ALT 11 (7-52) U/L Alkaline Phosphatase 74 (34-104) U/L Troponin I High Sens 12.6 (0-20) pg/ml Total Protein 7.5 (6.0-8.3) gm/dl Albumin 4.8 (3.4-5.0) gm/dl Globulin 2.7 (2.5-4.0) gm/dl Albumin/Globulin Ratio 1.8 (0.9-2) Lipase 20 (11-82) U/L Administered Medications Amlodipine Besylate (Amlodipine Besylate 5 Mg Tab) 5 mg PO AMHS DIANA Stop: 01/16/24 20:59 Last Admin: 12/17/23 23:01 Dose: 5 mg Documented By: MANAGER BOOKS Carbamazepine (Carbamazepine 200 Mg Tablet) 200 mg PO BID DIANA Stop: 01/16/24 20:59 Last Admin: 12/17/23 23:01 Dose: 200 mg Documented By: MANAGER BOOKS Ezetimibe (Ezetimibe 10 Mg Tab) 10 mg PO QPM DIANA Stop: 01/16/24 20:59 Last Admin: 12/17/23 23:00 Dose: 10 mg Documented By: MANAGER BOOKS Heparin Sodium/Dextrose (Heparin Sodium/Dextrose) 25,000 units in 500 mls @ 16 mls/hr IV .Q24H [facility]; Protocol Stop: 01/16/24 16:14 Last Titration: 12/18/23 06:21 Dose: 800 units/hr, 16 mls/hr Documented By: MANAGER BOOKS Co-signed By: KARLA Titration: 12/18/23 00:14 Dose: 800 units/hr, 16 mls/hr Documented By: MANAGER BOOKS Co-signed By: KRT Admin: 12/17/23 16:19 Dose: 700 units/hr, 14 mls/hr Documented By: ACC Co-signed By: RUPERT Metoprolol Tartrate (Metoprolol Tartrate 50 Mg Tab) 50 mg PO TID [facility] Stop: 01/16/24 20:59 Last Admin: 12/17/23 23:01 Dose: 50 mg Documented By: MANAGER BOOKS Nitroglycerin (Nitroglycerin 2% Ointment 30gm Tube) 1 inch EXT Q6H DIANA Stop: 01/16/24 19:59 Last Admin: 12/18/23 02:07 Dose: 1 inch Documented By: MANAGER BOOKS Admin: 12/17/23 23:00 Dose: 1 inch Documented By: MANAGER BOOKS Discontinued Medications Heparin Sodium (Porcine) (Heparin Sod (Porcine) 1000 Unit/Ml) 2,000 units IV NOW ONE Stop: 12/18/23 00:01 Last Admin: 12/18/23 00:14 Dose: 2,000 units Documented By: MANAGER BOOKS Co-signed By: KARLA Nitroglycerin (Nitroglycerin 2% Ointment 30gm Tube) 1 inch EXT NOW STA Stop: 12/17/23 15:54 Last Admin: 12/17/23 16:13 Dose: 1 inch Documented By: ACC Imaging Data Radiologist's Impression: Chest X-Ray 12/17/23 14:15 SINGLE VIEW CHEST CLINICAL HISTORY: Atypical chest pain. FINDINGS: An AP, portable, upright chest radiograph is compared to study dated 01/08/2023. The patient is status post midline sternotomy. The heart is enlarged noting atherosclerotic calcification of the thoracic aorta. There is pulmonary vascular congestion. Chronic interstitial thickening is similar to previous. Scarring/atelectasis is noted at the lung bases. Suspect trace pleural effusions. No pneumothorax is seen. The skeletal structures are osteopenic. The bony thorax is grossly intact. IMPRESSION: 1. Cardiomegaly with pulmonary vascular congestion. 2. Suspect trace pleural effusions. ACT 112: Negative or not required by law. Electronically signed by: Wilbur Granados M.D. 12/17/2023 3:17 PM Discharge Plan Visit Data Chief Complaint: Referred by Doctor Stated Complaint: DOC TOLD PT TO COME IN ED Provider: Jose Solorio Discharge Problem: Unstable angina pectoris, CAD (coronary artery disease), Hypertension, History of coronary artery bypass graft x 3 Patient Disposition: Admitted As Inpatient Discharge Instructions Interventions: ED Discharge Assessment Last Done: 12/17/23 17:54 Discharge Problem: CAD (coronary artery disease) Qualifiers: Coronary Disease-Associated Artery/Lesion type: unspecified vessel or lesion type [place] vs. transplanted heart: [place] heart Associated angina: with unstable angina Qualified Code(s): I25.110 - Atherosclerotic heart disease of [place] coronary artery with unstable angina pectoris Hypertension Qualifiers: Hypertension type: unspecified Qualified Code(s): I10 - Essential (primary) hypertension
--- NOTE | 2023-12-17 15:01 | Electrocardiogram Report ---
Test Reason : Blood Pressure : / mmHG Vent. Rate : 067 BPM Atrial Rate : 067 BPM P-R Int : 322 ms QRS Dur : 092 ms QT Int : 380 ms P-R-T Axes : 094 024 203 degrees QTc Int : 401 ms Sinus rhythm with 1st degree A-V block with occasional Premature ventricular complexes Marked ST abnormality, possible lateral subendocardial injury Abnormal ECG When compared with ECG of 09-JAN-2023 05:37, ST no longer depressed in Anterior leads T wave inversion less evident in Lateral leads Confirmed by Eleno Robert ([id number]) on 12/17/2023 3:01:01 PM Referred By: Confirmed By:Eleno Robert
[2023-12-17 15:17] LABS: Albumin Globulin Ratio 1.8 (0.9-2); Albumin Level 4.8 gm/dl (3.4-5.0); BUN Creatinine Ratio 26.3 (10-20); Basophils # (auto) 0.01 K/uL (0.00-0.20); Basophils % (auto) 0.1 %; Bilirubin,Total 0.5 mg/dl (0.2-1.0); Calcium 10.1 mg/dl (8.6-10.3); Creatinine Clr Calc Pharmacy 71.8 ml/min; Eosinophils # (auto) 0.21 K/uL (0.00-0.50); Eosinophils % (auto) 2.5 %; Est GFR (African American) 107.8 ml/min; Globulin 2.7 gm/dl (2.5-4.0); Hematocrit (blood only) 37.8 % (42.0-52.0); Hemoglobin 12.9 g/dl (14.0-18.0); Immature Granulocytes # (auto) 0.01 K/uL (0.01-0.20); Immature Granulocytes % (auto) 0.1 %; Lymphocytes # (auto) 1.79 K/uL (1.20-3.40); Lymphocytes % (auto) 21.3 %; Mean Corpuscular Hemoglobin 34.5 pg (25.0-34.0); Mean Corpuscular Hgb Conc 34.1 g/dL (32.0-36.0); Mean Corpuscular Volume 101.1 fL (80.0-100.0); Mean Platelet Volume 8.9 fL (9.4-12.4); Monocytes # (auto) 0.56 K/uL (0.11-0.59); Monocytes % (auto) 6.7 %; Neutrophils # (auto) 5.83 K/uL (1.40-6.50); Neutrophils % (auto) 69.3 %; Platelet Count 182 K/uL (130-400); Potassium 3.8 mmol/L (3.5-5.1); RDW Coefficient of Variation 14.2 % (11.5-14.5); RDW Standard Deviation 52.8 fL (36.4-46.3); Red Blood Count 3.74 M/uL (4.70-6.10); Total Protein 7.5 gm/dl (6.0-8.3); White Blood Count 8.41 K/ul (4.8-10.8)
--- NOTE | 2023-12-17 15:18 | XRay Report ---
SINGLE VIEW CHEST CLINICAL HISTORY: Atypical chest pain. FINDINGS: An AP, portable, upright chest radiograph is compared to study dated 01/08/2023. The patient is status post midline sternotomy. The heart is enlarged noting atherosclerotic calcification of the thoracic aorta. There is pulmonary vascular congestion. Chronic interstitial thickening is similar t o previous. Scarring/atelectasis is noted at the lung bases. Suspect trace pleural effusions. No pneu mothorax is seen. The skeletal structures are osteopenic. The bony thorax is grossly intact. IMPRESSION: 1. Cardiomegaly with pulmonary vascular congestion. 2. Suspect trace pleural effusions. ACT 112: Negative or not required by law. Electronically signed by: Wilbur Granados M.D. 12/17/2023 3:17 PM
[2023-12-17 15:23] LABS: Troponin I High Sensitivity 12.6 pg/ml (0-20)
[2023-12-17 15:26] LABS: Partial Thromboplastin Ratio 0.9; Partial Thromboplastin Time 26 Seconds (21-31); Prothrombin Time 11.3 Seconds (9.0-12.0)
[2023-12-17] MEDS ORDERED: Heparin IV Adult Wt-Based Low-Dose *NO* INITIAL Bolus Protocol IV STA (15:53)
[2023-12-17] MEDS: NITROGLYCERIN 2% OINTMENT 30GM TUBE EXT STA (16:13)
[2023-12-17] MEDS ORDERED: Heparin IV Adult Wt-Based Low-Dose *NO* INITIAL Bolus Protocol IV SCH (16:15)
[2023-12-17] MEDS: HEPARIN SODIUM/DEXTROSE 25,000 UNITS/500 ML BAG IV SCH (16:19)
[2023-12-17] MEDS ORDERED: ACETAMINOPHEN 325 MG TAB PO PRN (18:05)
[2023-12-17] MEDS ORDERED: NITROGLYCERIN SL 0.4 MG/TAB TAB SL PRN (18:05)
--- NOTE | 2023-12-17 18:05 | Cardiology Consultation ---
Date of Consultation December 17, 2023 Assessment & Plan (1) Unstable angina pectoris: -88-year-old male with a longstanding history of complex coronary heart disease, CABG x 3 performed 25 years ago. Recent cardiac catheterization performed in 2021 revealing severe [place] vessel disease with graft disease not amenable to revascularization. -Continue outpatient treatment with aspirin 81 mg daily, clopidogrel 75 mg daily, amlodipine 5 mg daily, metoprolol tartrate 50 mg 3 times daily, spironolactone 25 mg daily, rosuvastatin 40 mg daily. -Hold prior to hospital treatment with isosorbide mononitrate in favor of topical nitroglycerin. Considerations include transitioning into a topical nitroglycerin patch rather than isosorbide mononitrate. -Given chest x-ray findings of mild pulmonary edema and lower extremity edema slightly worse than his usual baseline, will plan on updating his echocardiogram and will consider IV diuretic therapy. -Continue unfractionated heparin. -Ongoing medical issue management recommended given results of previous cardiac catheterization. History of Present Illness History of Present Illness Mr Wheeler is an 88-year-old male seen in cardiology consultation per the request of Dr. Solorio of emergency medicine for the evaluation of chest discomfort. Patient is assessed in the emergency department, room A11. His spouse is at the bedside during my assessment. He has a longstanding history of chronic exertional angina. Typically he takes 1-2 nitroglycerin tablets per week but he notes that over the last several months this has been increasing to 3 to 4 tablets and more recently 4 to 5 tablets in a given week. This morning at 5 AM he had his typical midline chest discomfort that radiates down his right arm. He took a sublingual nitroglycerin with relief. He then took his normal dose of isosorbide mononitrate extended release 120 mg. About an hour later he had another episode of chest discomfort at about 930 prompting a second dose of sublingual nitroglycerin. He then went out to eat with his family and had another spell consistent with angina. During my assessment he was already on an unfractionated heparin infusion as well as topical nitroglycerin as per my telephone discussion with Dr. Solorio. History: The patient's primary tunnel mucker is Dr. Carlin of our practice. The patient has a longstanding history of multivessel coronary heart disease and classI-II exertional angina He underwent CABG x 3 at [facility] in [address] Jonah Niño with CHASE to LAD, free radial graft from the left internal mammary artery to the first obtuse marginal and right internal mammary graft to the right coronary artery In January, he presented to [facility] with a non-ST segment elevation myocardial infarction and was transferred to [facility] for high risk cardiac catheterization. He was found to have severe three-vessel [place] vessel disease as well as severe graft disease not amenable to revascularization. Patient is unable to take Ranexa due to history of Tegretol treatment for seizure disorder 6 cm x 5.7 cm abdominal aortic aneurysm Hypertension Dyslipidemia Allergies Allergy/AdvReac Type Severity Reaction Status Date / Time diltiazem AdvReac Severe red rash Verified 12/17/23 16:35 on chest Hydantoins AdvReac Severe CAUSES A Verified 12/17/23 16:35 SEIZURE phenytoin AdvReac Severe CAUSES A Verified 12/17/23 16:35 SEIZURE Home Medications Medication Instructions Recorded Confirmed Type carbamazepine 200 mg tablet 200 mg PO BID 12/28/19 12/17/23 History (Tegretol) cholecalciferol (vitamin D3) 25 1,000 unit PO QAM 12/28/19 12/17/23 History mcg (1,000 unit) tablet (Vitamin D3) ezetimibe 10 mg tablet (Zetia) 10 mg PO QPM 06/02/20 12/17/23 History multivitamin 1 tab PO DAILY 06/02/20 12/17/23 History rosuvastatin 40 mg tablet (Crestor) 40 mg PO QAM 06/02/20 12/17/23 History nitroglycerin 0.4 mg sublingual 0.4 mg sublingual UD PRN chest 02/17/22 12/17/23 Rx tablet (Nitrostat) pain #30 tabs amlodipine 5 mg tablet 5 mg PO AMHS 03/31/22 12/17/23 History aspirin 81 mg tablet,delayed 81 mg PO QAM 04/17/22 12/17/23 History release clopidogrel 75 mg tablet 75 mg PO QAM 04/17/22 12/17/23 History isosorbide mononitrate 120 mg 120 mg PO DAILYBB 04/17/22 12/17/23 History tablet,extended release 24 hr spironolactone 25 mg tablet 25 mg PO QAM 01/08/23 12/17/23 History ferrous sulfate 28 mg iron tablet 28 mg PO QAM 12/17/23 12/17/23 History furosemide 20 mg tablet 20 mg PO QAM 12/17/23 12/17/23 History metoprolol tartrate 50 mg tablet 50 mg PO TID 12/17/23 12/17/23 History Patient History Medical History Mobitz type 1 second degree atrioventricular block NSTEMI (non-ST elevated myocardial infarction) Seizure disorder Unstable angina Elevated PSA 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 Lyme arthritis Lyme disease Right rib fracture Surgical History History of inguinal hernia repair History of vasectomy S/P CABG (coronary artery bypass graft) Family History Other Family history unknown Social History Smoking Status: Never smoker Tobacco Type: Cigarettes Second Hand Exposure: No; Do You Dip or Chew Tobacco: No; Hx Alcohol Use: Yes Alcohol type: wine Hx Substance Use: No Preferred Language: Estonian Communication Ability: Effective Front End Assistant Required: No Beliefs That Will Affect Care: None marital status: Current Living Situation: Spouse and Family How many Children do You have: 5 Feels Safe at Home: Yes Assistive Devices: Cane, Walker and Wheelchair Review of Systems Review of Systems: All systems reviewed & are unremarkable except as noted in HPI & below Physical Exam Constitutional: WD/WN, vitals as above Respiratory: normal respiratory effort, lungs clear to auscultation Cardiovascular: Rate/Rhythm: regular rate and regular rhythm Heart Sounds: no murmur Extremities: + edema (Right greater than left lower extremity 1+ edema) Gastrointestinal (Abdomen): normal bowel sounds, soft, nontender, no hepatosplenomegaly Neurologic: PERRL, EOMI, accommodation nl, no face palsy, no dysarthria Psychiatric: A+Ox3, euthymic affect Results & Data Vital Signs (Past 12 Hours) Vital Signs Temp Pulse Resp BP Pulse Ox O2 Del Method 12/17/23 16:20 68 20 92 12/17/23 16:10 69 16 95 12/17/23 16:00 72 15 94 12/17/23 16:00 155/93 H 12/17/23 15:54 170/80 H 12/17/23 15:54 78 94 12/17/23 15:53 74 15 12/17/23 15:40 64 15 12/17/23 15:30 73 15 91 12/17/23 15:20 62 92 12/17/23 15:10 62 95 12/17/23 15:00 67 21 95 12/17/23 14:58 64 14 95 12/17/23 14:49 66 12/17/23 14:13 36.6 C 66 20 130/70 93 Room Air Laboratory Results Cardiac Enzymes 12/17/23 Range/Units 14:47 AST 17 (13-39) U/L Troponin I High Sens 12.6 (0-20) pg/ml Coagulation 12/17/23 Range/Units 14:47 PT 11.3 (9.0-12.0) Seconds APTT 26 (21-31) Seconds CBC 12/17/23 Range/Units 14:47 WBC 8.41 (4.8-10.8) K/ul RBC 3.74 L (4.70-6.10) M/uL Hgb 12.9 L (14.0-18.0) g/dl Hct 37.8 L (42.0-52.0) % Plt Count 182 (130-400) K/uL Neut # (Auto) 5.83 (1.40-6.50) K/uL Lymph # (Auto) 1.79 (1.20-3.40) K/uL Elbert # (Auto) 0.56 (0.11-0.59) K/uL Eos # (Auto) 0.21 (0.00-0.50) K/uL Baso # (Auto) 0.01 (0.00-0.20) K/uL Comprehensive Metabolic Panel 12/17/23 Range/Units 14:47 Sodium 138 (136-145) mmol/L Potassium 3.8 (3.5-5.1) mmol/L Chloride 99 (98-107) mmol/L Carbon Dioxide 33 H (21-32) mmol/L BUN 15 (6-23) mg/dl Creatinine 0.57 L (0.6-1.4) mg/dl Glucose 113 H (70-99(Fasting)) mg/dl Calcium 10.1 (8.6-10.3) mg/dl AST 17 (13-39) U/L ALT 11 (7-52) U/L Alkaline Phosphatase 74 (34-104) U/L Total Protein 7.5 (6.0-8.3) gm/dl Albumin 4.8 (3.4-5.0) gm/dl Intake and Output 12/17/23 12/17/23 12/17/23 06:59 14:59 22:59 Other: Weight 62.3 kg Weight Measurement Method Chair Scale Patient Weight 12/18/23 06:59 Weight 62.3 kg Diagnostic Findings EKG performed on arrival today 12/17/2023 at 1422 and interpreted independently: Sinus rhythm at 67 bpm with long first-degree AV block, UT interval 322 ms, with [address] segment depression noted in the precordial leads as well as the inferior and lateral leads. Per review of previous tracings dating back to 2021, he has a longstanding history of diffuse ST segment depression which is slightly less prominent on the present tracing Summary of transthoracic echocardiogram performed December,: Moderate hypokinesis of the anterolateral wall, LVEF in the range of 45-50%, mild MR, mild TR, grade 1 diastolic dysfunction
--- NOTE | 2023-12-17 19:51 | History & Physical Report ---
Date of Service December 17, 2023 Assessment & Plan (1) Unstable angina pectoris: (2) CAD (coronary artery disease): Plan: Admit to telemetry Patient presenting from home with worsening unstable angina symptoms. History of CAD s/p CABG x 3 in 1998, cardiac cath 2021 showing severe teller vessel and graft disease not amenable to revascularization. In the ED, initial HS troponin negative, EKG without acute ST changes Started on IV heparin and topical nitro in the ED, continue with both Continue home ASA, Plavix, statin, beta-tushar. Holding isosorbide in favor of topical nitroglycerin. Echo Cardiology consult (3) Ischemic cardiomyopathy: (4) Chronic combined systolic and diastolic CHF (congestive heart failure): Plan: Echo 12/2022-EF 45 to 50%, grade 1 diastolic dysfunction, mild mitral regurgitation, mild tricuspid regurgitation Appears euvolemic, continue home spironolactone and furosemide (5) Hypertension: Plan: Chronic, stable Continue amlodipine, metoprolol, diuretics (6) AAA (abdominal aortic aneurysm): Plan: 2021-5.[address] (7) ALEJANDRA (iron deficiency anemia): Plan: Hgb 12.9, at baseline Continue iron replacement (8) Seizure disorder: Plan: Chronic, stable Continue Tegretol DVT PROPHYLAXIS On IV heparin as above Patient seen in collaboration with Dr. Jamil. I spent a total of 75 minutes coordinating, documenting, and providing care for this patient excluding time spent in the performance of separately billed services. This included personally reviewing all current laboratories and imaging studies, medication reconciliation, outpatient chart review, and discussion with specialists. Admission and Anticipated Discharge Date Admission Date: December 17, 2023 History of Present Illness Chief Complaint: Chest pain Primary Care Provider: Kenny Osborn MD 88-year-old male with PMH CAD s/p CABG x 3 in 1998, history of cardiac cath in 2021 showing teller vessel and graft stenosis not amendable to intervention, class III angina pectoris, HTN, HLD, 5.[address] 2021, ischemic cardi omyopathy, chronic diastolic and systolic CHF, seizure disorder, iron deficiency anemia, and other problems listed below who presents to the ED for evaluation of chest pain. History is obtained from the patient and review of outpatient PCP and cardiology records. Patient with longstanding history of exertional angina requiring nitroglycerin. Patient typically will use about 2-3 nitroglycerin ta blets per week however recently, patient has been requiring 4-5. This morning, around 5 AM, patient was awoken from sleep with severe chest tightness that was radiating down his right arm typical of his angina symptoms. Patient reports taking 1 sublingual nitroglycerin with resolution of the discomfort. A few hours later, patient required another sublingual nitroglycerin. Symptoms returned a couple of hours later, taking another sublingual nitroglycerin. Patient called his cardiology office and was referred to the ED for further evaluation. Patient is currently chest pain-free. He reports associated shortness of breath. Denies diaphoresis, lightheadedness, dizziness, nausea. Notes bilateral lower extremity edema over the past couple of years, which has not acutely worsened. Patient denies any other recent illnesses, fevers, chills. ED provider discussed case cardiology who recommended IV heparin and topical nitroglycerin. Initial HS troponin negative, EKG without acute ST c hanges. Patient has remained hemodynamically stable. Allergies Allergy/AdvReac Type Severity Reaction Status Date / Time diltiazem AdvReac Severe red rash Verified 12/17/23 16:35 on chest Hydantoins AdvReac Severe CAUSES A Verified 12/17/23 16:35 SEIZURE phenytoin AdvReac Severe CAUSES A Verified 12/17/23 16:35 SEIZURE Home Medications Medication Instructions Recorded Confirmed Type carbamazepine 200 mg tablet 200 mg PO BID 12/28/19 12/17/23 History (Tegretol) cholecalciferol (vitamin D3) 25 1,000 unit PO QAM 12/28/19 12/17/23 History mcg (1,000 unit) tablet (Vitamin D3) ezetimibe 10 mg tablet (Zetia) 10 mg PO QPM 06/02/20 12/17/23 History multivitamin 1 tab PO DAILY 06/02/20 12/17/23 History rosuvastatin 40 mg tablet (Crestor) 40 mg PO QAM 06/02/20 12/17/23 History nitroglycerin 0.4 mg sublingual 0.4 mg sublingual UD PRN chest 02/17/22 12/17/23 Rx tablet (Nitrostat) pain #30 tabs amlodipine 5 mg tablet 5 mg PO AMHS 03/31/22 12/17/23 History aspirin 81 mg tablet,delayed 81 mg PO QAM 04/17/22 12/17/23 History release clopidogrel 75 mg tablet 75 mg PO QAM 04/17/22 12/17/23 History isosorbide mononitrate 120 mg 120 mg PO DAILYBB 04/17/22 12/17/23 History tablet,extended release 24 hr spironolactone 25 mg tablet 25 mg PO QAM 01/08/23 12/17/23 History ferrous sulfate 28 mg iron tablet 28 mg PO QAM 12/17/23 12/17/23 History furosemide 20 mg tablet 20 mg PO QAM 12/17/23 12/17/23 History metoprolol tartrate 50 mg tablet 50 mg PO TID 12/17/23 12/17/23 History Past Med/Surg History Medical History (Updated 12/17/23 @ 20:18 by AYSHA Aguilar) ALEJANDRA (iron deficiency anemia) Seizure disorder AAA (abdominal aortic aneurysm) Chronic combined systolic and diastolic CHF (congestive heart failure) Ischemic cardiomyopathy Stable angina pectoris Mobitz type 1 second degree atrioventricular block NSTEMI (non-ST elevated myocardial infarction) Elevated PSA Dissection of right iliac artery Antiphospholipid syndrome Osteoporosis Vitamin D deficiency History of [place] (myocardial infarction) Hyperlipidemia Chronic stable angina Hypertension CAD (coronary artery disease) Status post coronary bypass grafting, 1998, CHASE graft to LAD, free radial graft from left internal mammary artery to the left first obtuse marginal, and right internal mammary artery graft to the right coronary artery. Surgical History History of inguinal hernia repair History of vasectomy S/P CABG (coronary artery bypass graft) Family History Other Family history unknown Social History Smoking Status: Never smoker Tobacco Type: Cigarettes Second Hand Exposure: No; Do You Dip or Chew Tobacco: No; Hx Alcohol Use: Yes Alcohol type: wine Hx Substance Use: No Preferred Language: Cameroonian Communication Ability: Effective Film Vault Supervisor Required: No Beliefs That Will Affect Care: None marital status: Current Living Situation: Spouse and Family How many Children do You have: 5 Feels Safe at Home: Yes Assistive Devices: Cane, Walker and Wheelchair Physical Exam Constitutional: WD/WN, vitals as above no acute distress Eyes: PERRL, conjunctivae normal, anicteric sclerae ENMT: external ear and nose normal, oropharynx normal Respiratory: normal respiratory effort, lungs clear to auscultation Cardiovascular: Rate/Rhythm: regular rate and regular rhythm Vessels: normal peripheral pulses Extremities: + edema (Trace edema BLE) Gastrointestinal (Abdomen): normal bowel sounds, soft, nontender, no hepatosplenomegaly Musculoskeletal: no cyanosis or clubbing, extremities motor strength 5/5 Skin: no rashes, warm and dry Neurologic: PERRL, EOMI, accommodation nl, no face palsy, no dysarthria Psychiatric: A+Ox3, euthymic affect Results & Data Results & Data Vital Signs (Past 12 Hours) Vital Signs Temp Pulse Resp BP Pulse Ox O2 Del Method 12/17/23 19:00 139/76 12/17/23 19:00 74 15 12/17/23 18:00 71 18 91 12/17/23 18:00 142/83 H 12/17/23 17:00 74 18 93 12/17/23 17:00 147/91 H 12/17/23 16:20 68 20 92 12/17/23 16:10 69 16 95 12/17/23 16:00 72 15 94 12/17/23 16:00 155/93 H 12/17/23 15:54 170/80 H 12/17/23 15:54 78 94 12/17/23 15:53 74 15 12/17/23 15:40 64 15 12/17/23 15:30 73 15 91 12/17/23 15:20 62 92 12/17/23 15:10 62 95 12/17/23 15:00 67 21 95 12/17/23 14:58 64 14 95 12/17/23 14:49 66 12/17/23 14:13 36.6 C 66 20 130/70 93 Room Air Laboratory Results Short CBC 12/17/23 Range/Units 14:47 WBC 8.41 (4.8-10.8) K/ul Hgb 12.9 L (14.0-18.0) g/dl Hct 37.8 L (42.0-52.0) % Plt Count 182 (130-400) K/uL BMP 12/17/23 14:47 Sodium 138 Potassium 3.8 Chloride 99 Carbon Dioxide 33 H BUN 15 Creatinine 0.57 L Glucose 113 H Calcium 10.1 Liver Function 12/17/23 Range/Units 14:47 Total Bilirubin 0.5 (0.2-1.0) mg/dl AST 17 (13-39) U/L ALT 11 (7-52) U/L Alkaline Phosphatase 74 (34-104) U/L Albumin 4.8 (3.4-5.0) gm/dl Diagnostic Findings Chest X-Ray 12/17/23 14:15 SINGLE VIEW CHEST CLINICAL HISTORY: Atypical chest pain. FINDINGS: An AP, portable, upright chest radiograph is compared to study dated 01/08/2023. The patient is status post midline sternotomy. The heart is enlarged noting atherosclerotic calcification of the thoracic aorta. There is pulmonary vascular congestion. Chronic interstitial thickening is similar to previous. Scarring/atelectasis is noted at the lung bases. Suspect trace pleural effusions. No pneumothorax is seen. The skeletal structures are osteopenic. The bony thorax is grossly intact. IMPRESSION: 1. Cardiomegaly with pulmonary vascular congestion. 2. Suspect trace pleural effusions. ACT 112: Negative or not required by law. Electronically signed by: Wilbur Granados M.D. 12/17/2023 3:17 PM Code Status & VTE Plan VTE Prophylaxis Plan VTE Prophylaxis will be ordered: No Supervising Physician Co-Signing Physician Notes I have seen and examined the patient and have discussed the case with the provider above. I have reviewed the advanced practitioner's documentation, and I agree with, and take responsibility for that plan of care. 88 yo M with known history of chronic angina presents today after an escalation in his pain level that was recurring despite multiple nitroglycerin tabs. He is currently chest pain free. Reports this pain woke him up this morinign and traveled into his right arm, as it historically does. He denied any SOB, diaphoresis or other associated ACS symptoms. On exam he has a regular cardiac rate and rhythm with S1/2 heard and no m/g/r. Clear lungs to auscultation. Skin is warm and dry. Labs reveals normal troponin. EKG with ST depressions in anterolateral leads co ncerning for possible subendocardial injury. Macrocytosis present on CBC. Cont with heparin treatment of UA. Cont nitro patch and other recommendations by cardiology. Cont telemetry monitoring. B12/folate for macrocytosis. DO Omero
--- OUTSIDE RECORDS SUMMARY | 2023-12-17 21:37 | External Medical Summary | Summary of Care ---
Author Name Unknown Organization [facility] Address [address] [place] [address] Phone [phone] Care [address] Worker Name Role Phone Kenny Osborn MD Primary Care Provider [phone] Reason for Visit * Reason Onset Date Comments Advice 12/11/2023 Encounter Details Date Type Department Care Team (Late st Contact Info) Description 12/11/2023 Telephone [facility] [address] [place] [address] Kenny Osborn MD [address] [place] [address] Advice Allergies Active Allergy Reactions Criticality Noted Date Comments Diltiazem 06/21/1999 RASH Hydantoins Seizure High 04/18/2022 Phenytoin Sodium 01/19/1999 SEIZURES documented as of this encounter (statuses as of 12/13/2023) Medications Medication Sig Dispensed Refills Start Date End Date Status MULTIVITAMIN TABS OR one pill each day 100 0 01/19/2003 Active Ferrous Sulfate (IRON) 28 MG Tablet Take 1 Tablet by mouth in the morning. 0 Active Diclofenac Sodium 1 % gelIndications:Genera lized osteoarthritis Place 2 g topically on the skin 4 times a day as needed for Pain. 100 g 5 04/21/2020 Active Aspirin 81 MG Oral Tablet Chewable Take by mouth 1 Tablet in the morning. with food.. 100 Tablet 5 04/14/2022 Active oxygen IN GAS Administer into nostril 2 L/min(Oxygen) continuous . 1 Each 0 06/29/2022 Active Clopidogrel Bisulfate 75 MG Oral Tablet (pLAVix) Take 1 Tablet by mouth in the morning. 90 Tablet 3 04/02/2023 Active Rosuvastatin Calcium 40 MG Oral Tablet (Crestor)Indications: ASCVD (arteriosclerotic cardiovascular disease),Aortocoronar y bypass status,Dyslipidemia, goal LDL below 70 Take 1 Tablet by mouth in the morning. 90 Tablet 3 04/17/2023 Active Nitroglycerin 0.4 MG Sublingual Tablet Sublingual (Nitrostat) Place 1 Tablet under the tongue every 5 minutes as needed for Pain, Chest. 180 Tablet 3 06/28/2023 Active Isosorbide Mononitrate ER 120 MG Oral Tablet Extended Release 24 Hour (Imdur)Indications:HT N, goal below 140/90 TAKE 1 TABLET BY MOUTH IN THE MORNING 90 Tablet 3 09/10/2023 Active Spironolactone 25 MG Oral Tablet (Aldactone)Indication s:HTN, goal below 140/90,Aortocoronary bypass status TAKE 1 TABLET BY MOUTH EVERY MORNING 90 Tablet 3 09/24/2023 Active Ezetimibe 10 MG Oral Tablet (Zetia)Indications:Dy slipidemia, goal LDL below 70 TAKE 1 TABLET BY MOUTH EVERY DAY 90 Tablet 3 09/24/2023 Active Furosemide 20 MG Oral Tablet (Lasix)Indications:Ch ronic systolic heart failure (HCC),HTN, goal below 140/90 TAKE 1 TABLET BY MOUTH EVERY MORNING 90 Tablet 1 10/04/2023 Active amLODIPine Besylate 5 MG Oral Tablet (Norvasc)Indications: ASCVD (arteriosclerotic cardiovascular disease),Aortocoronar y bypass status,HTN, goal below 140/90 Take 1 Tablet by mouth in the morning and 1 Tablet before bedtime. 180 Tablet 3 10/04/2023 Active Metoprolol Tartrate 50 MG Oral Tablet (Lopressor)Indication s:HTN, goal below 150/90,Palpitations Take 1 Tablet by mouth in the morning and 1 Tablet at noon and 1 Tablet in the evening. 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 Checking wt daily Continue furosemide 20mg daily. BP 102/62--asymptomatic. Continues amlodipine, metoprolol Will continue to monitor by [facility] nursing staff. 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 Was on fosamax in the past for years. 'It didn;t help at all." Eczema 12/14/2015 HTN, goal below 150/90 01/19/2015 AAA (abdominal aortic aneurysm) 11/23/2014 Overview: 12/06/12 3.8 cm Last Assessment & Plan: Closely followed by vascular. Pt reports he does not want surgery, risk of rupture lower than risk of with surgery. He plans to continue vascular follow up. 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 INTERMED CORONARY SYND 12/27 documented as of this encounter (statuses as of 12/13/2023) Immunizations Name Administration Dates Next Due COVID-19 mRNA, LNP-s, No Pre serve, 2-Dose Series (CrossChx) 11/16/2021,02/14/2021,01/18/2021 COVID-19, LNP-s, No Preserve , Jv-sucrose, Ages 12+ (Pfizer) 04/26/2022 COVID-19, MRNA-LNP, 23-24, P F, 50 MCG/0.5 mL, 12 YRS AND ABOVE, IM (MODERNA-Spikevax) 08/27/2023 Covid-19, Mrna, Lnp-s, Pf, B ivalent, 30 Mcg, IM, 12 yrs and above (CrossChx) 08/22/2022 Diptheria/Tetanus (Adult) 12/10/1998 Hepatitis A Vaccine 06/21/1999,12/10/1998 Hepatitis B Vaccine 06/21/1999,01/19/1999,1998 Pneumococcal Conjugate Vacc, 13 Valent (Prevnar) 04/20/2015 Pneumococcal Polysaccharide PPV23 (Pneumovax) 03/18/2009,12/05/2001 RSV Vac., Recomb, Adjuvant, PF,0.5 Ml (Arexvy) 10/26/2023 Season Influenza, Quad, PF, Adjuvanted, 65+ Yrs, IM (FLUAD) 08/13/2023 Seasonal Influenza, PF, 6 M & above, IM , (FluLaval or Fluzone) 07/22/2019,08/22/2018,08/14/2017 Seasonal Influenza, Quadriva lent Hd (Fluzone Hd) 08/31/2022,08/11/2021 Seasonal Influenza, Quadriva lent, No Preserve, IM 08/10/2016 08/10/2017 Seasonal Influenza, Split, I IV3, With Preserve, Inj 07/28/2015,07/23/2014,09/30/2013,06/2012,08/07/2011,08/08/2010,08/16/20 09,10/05/2008,09/11/2007,09/20/2006,1 ,01/10/2005,09/29/2003,09/08 Seasonal Influenza, Trivalen t, Adjuvanted, 65+ yrs 08/04/2020 TD, Preservative Free 04/11/2010 04/21/2010 TDAP (age 10 and older)(Boostrix) 07/16/2023, Varicella Zoster Vaccine (Adult) 12/23/2008 Zoster Vaccine Recombinant (Shingrix) 12/06/2018 ,06/04/2018 documented as of this encounter Social History Tobacco Use Types Packs/Day Years Used Date Smoking Tobacco: Some Days Cigarettes 1 28 Last attempted to quit: 04/24/1980 Cigars Smokeless Tobacco: Never Comments:1979 quit cigarette s Has occasional cigar 2-3 month, only in summer Alcohol Use Standard Drinks/Week Comments Yes 0 (1 standard drink = 0.6 oz pur e alcohol) OCC/ 1 bottle wine per month PHQ-2 Answer Date Recorded PHQ Adult Total Score 2 12/11/2022 Hunger Vital Sign Answer Date Recorded Within the past 12 months, y ou worried that your food would run out before you got the money to buy more. Never true 12/11/19 23 Within the past 12 months, t he food you bought just didn't last and you didn't have money to get more. Never true 12/11/2022 Sex and Gender Information Value Date Recorded Sex Assigned at Male 10/07/2020 9:02 AM EST Gender Identity Male 10/07/2020 9:02 AM EST Sexual Orientation Straight 01/27/2020 12 :16 PM EDT Job Start Date Occupation Industry Not on file Not on file Not on file documented as of this encounter Functional Status Functional Status Response Date of Assess ment Are you deaf or do you have serious difficulty h earing? No 04/03/2022 Are you blind or do you have serious difficulty seeing, even when wearing glasses? No 04/03/2022 Do you have serious difficul ty walking or climbing stairs? (5 years old or older) No 04/03/2022 Do you have difficulty dress ing or bathing? (5 years old or older) No 04/03/2022 Because of a physical, menta l, or emotional condition, do you have difficulty doing errands alone such as visiting a doctor s office or shopping? (15 years old or older) No 04/03/20 Cognitive Status Response Date of Assessm ent Because of a physical, menta l, or emotional condition, do you have serious difficulty concentrating, remembering, or making decisions? (5 years old or older) No 04/03/2022 documented as of this encounter Miscellaneous Notes * Telephone Encounter - Julisa Hernandez CRNP - 12/13/2023 2:[address] Carlin: Mr. Wheeler is complaining of increasing angina episodes. We have him on Imdur 120mg QD, and Amlodipine 5mg PO BID (I believe it was split due to BP tolerance). His last cath was 2021 with recommendation for medical management, and he is not a candidate for Ranexa due to being on Tegretol for seizures. What are your thoughts on other medication options/treatments? * Telephone Encounter - Bryanna Martin NRCMA - 12/13/2023 1:36 PM EST I spoke with pt and he is agreeable if this is "ok with Dr Carlin" In reviewing chart I see that pt is taking amlodipine 5mg BID now. Please verify the dose to increase to, if still desired. Pt will need any new Rx sent to [facility] in [facility] and a call back to confirm. ROMEL Woo * Telephone Encounter - Julisa Hernandez CRNP - 12/13/2023 1:22 PM EST Unfortunately he is already on his Max dosing of Imdur (120mg PO QD). We can try to increase his amlodipine to 10mg PO QD and assess for symptom relief. Important to check home Blood pressures. Wouldlike an update within 1-2 weeks of increasing Amlodipine. As always, if patient is having chest pain unrelieved with nitro, especially if it is new or worsening, would recommend that he presents to the ED for evaluation. * Telephone Encounter - Charlotte Rice RN - 12/11/2023 2:05 PM EST Provider to address: Patient seen today for Annual Wellness Visit. Patient states for the past month he has had increasing anginal symptoms. Usual angina is 2-3 timesper week. Now it is 5-6 times per week. Describes as Chest tightness with radiation to Rt Arm. No associated SOB, diaphoresis,nausea or lightheadedness. Notices if he "moves too fast" or if he is cold too long. Happens in the evening. Relieved with 1 NTG, had 1 episode where it took 2. Asking whether his Imdur can be increased. Denies pain currently, states he feels "really good" today. Dr. Osborn notified. Asked to send note to Cardiology. Please advise. Reason for Call: Advice Contact: In Clinic Contact Type: Advice Outcome: See above Face to face time spent with Patient (minutes): 10 Total Time including non face to face (minutes): 10 documented in this encounter Plan of Treatment Upcoming Encounters Date Type Department Care Team (Late st Contact Info) Description 12/19/2023 10:15 AM EST [facility] [address] [facility] [place] [address] Darrel Lovell PA-C [address] [facility] [place] [address] 01/21/2024 2:00 PM EST Office Visit Family Practice, [place] [address] [facility] [place] [phone] Kenny Osborn MD [address] [place] [address] 04/15/2024 1:30 PM EDT Office Visit Cardiology, [facility] [address] [facility] [place] [address] Julisa Hernandez CRNP [address] [facility] [place] [address] 12/17/2024 11:00 AM EST Nurse Only Ancillary Department, [place] [address] [facility] [address] [place], Nurse Annual Wellness [address] [place] [facility] [place] [facility] [place] [address] Health Maintenance Due Date Last Done Comments DISCUSS TOBACCO CESSATION (REFER TO SMARTSET #3291) 1937 *BISPHONATE OR OTHER ACCEPTABLE MEDICATION NEEDED FOR OSTEOPOROSIS (REFER TO SMARTSET #1146) 12/09/2017 DXA Scan 11/15/2022 11/15/2020, 08/0 01/2016, 05/18/2014, Additional history exists AAA Monitoring 04/07/2023 04/07/2022, 05/20, 06/30/2020, Additional history exists HbA1c 03/19/2024 03/19/2023, 03/19, 12/10/1998 Albumin/Creatinine Ratio 05/25/2024 05/25/2021, 12/2018 Depression Screening 12/11/2024 12/11/2023 DTaP,Tdap,and Td Vaccines (3 - Td or Tdap) 07/16/2033 07/16/2023, 04/01/2013, 04/11/2010, Additional history exists Hepatitis B Completed 06/21/1999, 01/1999, 01/19/1999, Additional history exists Pneumococcal Vaccine: 65+ Years Completed 04/20/2015, 03/18/2009, 12/05/2001 Zoster Vaccines Completed 12/06/2018, 05/19, 12/23/2008 VITAMIN D LEVEL ONCE IN A LIFETIME-USE SMARTSET# [id number] Completed 05/25/2021, 11/20/2018, 07/13/2017, Additional history exists Influenza Vaccine (FLU shot) Completed , 08/31/2022, 08/11/2021, Additional history exists COVID-19 Vaccine Completed 08/27/2023, 02/2022, 04/26/2022, Additional history exists GARDASIL-HPV IMMUNIZATION SERIES Aged Out No longer eligible based on patient's age to complete this topic MENINGOCOCCAL (MENACTRA/MENVEO) Aged Out No longer eligible based on patient's age to complete this topic documented as of this encounter Medical Devices Not on filedocumented as of this encounter Advance Directives Documents on File Type Date Recorded Patient Facility Practice Specialist Expl anation POLST 01/29/2023 [place] [facility] FOR LIFE-SUSTAINING TREATMENT Latest Code Status on File Code Status Date Activated Date Inactivated Comments Full Code 04/03/2022 8:54 PM 04/05/2022 5:43 PM This order reflects the patients wishes and were consensually agreed upon. Code Status History Code Status Date Activated Date Inactivated Comments No Code 06/08/2010 9:05 AM 06/11/2010 5:32 PM This order reflects the patients wishes and were consensually agreed upon. Question Answer Comments Discussion of Advance Directives occurred with: Patient Does the patient have a Living Will? Yes, in chart and reviewed as current Does the patient have Health Care Power of Event Specialist? No Full Code 06/08/2010 12:41 AM 06/08/2010 9:05 AM This order reflects the patients wishes and were consensually agreed upon. Question Answer Comments Discussion of Advance Directives occurred with: Patient Does the patient have a Living Will? No Does the patient have Health Care Power of Event Specialist? No Healthcare Agents on File Name Relationship Healthcare Agent Relationship Communication Hawa wheeler Spouse First Alternate Health Care Agent Care Teams Drive Worker Relationship Specialty Start Date End Date Kenny Osborn MD [address] [place] [address] PCP - General 08/29/05 documented as of this encounter
--- OUTSIDE RECORDS SUMMARY | 2023-12-17 21:37 | External Medical Summary | Summary of Care ---
Author Name Unknown Organization [facility] Address [address] [facility] [place] [address] Phone [phone] Care Team Providers Care Supervisor Marble Name Role Phone Kenny Osborn MD Primary Care Provider [phone] Encounter Details Date Type Department Care Team (Late st Contact Info) Description 11/28/2023 Patient Reported Data Patient Survey Ortho [facility] Allergies Active Allergy Reactions Criticality Noted Date Comments Diltiazem 06/21/1999 RASH Hydantoins Seizure High 04/18/2022 Phenytoin Sodium 01/19/1999 SEIZURES documented as of this encounter (statuses as of 11/28/2023) Medications Medication Sig Dispensed Refills Start Date End Date Status MULTIVITAMIN TABS OR one pill each day 100 0 01/19/2003 Active Ferrous Sulfate (IRON) 28 MG Tablet Take 1 Tablet by mouth in the morning. 0 Active Diclofenac Sodium 1 % gelIndications:Gene ralized osteoarthritis Place 2 g topically on the [...] Active Rosuvastatin Calcium 40 MG Oral Tablet (Crestor)Indication s:ASCVD (arteriosclerotic cardiovascular disease),Aortocoron dread bypass status,Dyslipidemia , goal LDL below 70 Take 1 Tablet by mouth in the morning. 90 Tablet 3 04/17/2023 Active Nitroglycerin 0.4 MG Sublingual Tablet Sublingual (Nitrostat) Place 1 Tablet under the tongue every 5 minutes as needed for Pain, Chest. 180 Tablet 3 06/28/2023 Active Arexvy 120 MCG/0.5ML Intramuscular Suspension Reconstituted (RSVPreF3 Vac Recomb Adjuvanted)Indicati ons:Need for RSV vaccination Inject intramuscularly in to large muscle like the deltoid. 1 Each 0 09/03/2023 Active Additional Information Patient not taking.Reported on 10/08/2023 Isosorbide Mononitrate ER 120 MG Oral Tablet Extended Release 24 Hour (Imdur)Indications: HTN, goal below 140/90 TAKE 1 TABLET BY MOUTH IN THE MORNING 90 Tablet 3 09/10/2023 Active Spironolactone 25 MG Oral Tablet (Aldactone)Indicati ons:HTN, goal below 140/90,Aortocoronar y bypass status TAKE 1 TABLET BY MOUTH EVERY MORNING 90 Tablet 3 09/24/2023 Active Ezetimibe 10 MG Oral Tablet (Zetia)Indications: Dyslipidemia, goal LDL below 70 TAKE 1 TABLET BY MOUTH EVERY DAY 90 Tablet 3 09/24/2023 Active Furosemide 20 MG Oral Tablet (Lasix)Indications: Chronic systolic heart failure (HCC),HTN, goal below 140/90 TAKE 1 TABLET BY MOUTH EVERY MORNING 90 Tablet 1 10/04/2023 Active amLODIPine Besylate 5 MG Oral Tablet (Norvasc)Indication s:ASCVD (arteriosclerotic cardiovascular disease),Aortocoron dread bypass status,HTN, goal below 140/90 Take 1 Tablet by mouth in the morning and 1 Tablet before bedtime. 180 Tablet 3 10/04/2023 Active Metoprolol Tartrate 50 MG Oral Tablet (Lopressor)Indicati ons:HTN, goal below 150/90,Palpitations Take 1 Tablet by mouth in the morning and 1 Tablet at noon and 1 Tablet in the evening. 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 Checking wt daily Continue furosemide 20mg daily. BP 102/62--asymptomatic. Continues amlodipine, metoprolol Will continue to monitor by [facility] nursing staff. Iron deficiency anemia 04/03/2022 Old ME (myocardial infarction) 01/13/2020 Dissection of right iliac [...] as of this encounter (statuses as of 11/28/2023) Resolved Problems Problem Noted Date Diagnosed Date [...] as of this encounter (statuses as of 11/28/2023) Immunizations Name Administration Dates Next Due COVID-19 mRNA, LNP-s, No Pre serve, 2-Dose Series (Pixelpipe) 11/16/2021,02/14/2021,01/18/2021 COVID-19, LNP-s, No Preserve , Jv-sucrose, Ages 12+ (Pixelpipe) 04/26/2022 Covid-19, Mrna, Lnp-s, Pf, B ivalent, 30 Mcg, IM, 12 yrs and above (Pixelpipe) 08/22/2022 Pneumococcal Conjugate Vacc, 13 Valent (Prevnar) 04/20/2015 Pneumococcal Polysaccharide PPV23 (Pneumovax) 03/18/2009 Seasonal Influenza, PF, 6 M & above, IM , (FluLaval or Fluzone) 07/22/2019,08/22/2018,08/14/2017 Seasonal Influenza, Quadriva lent Hd (Fluzone Hd) 08/31/2022,08/11/2021 Seasonal Influenza, Quadriva lent, No Preserve, IM 08/10/2016 08/10/2017 Seasonal Influenza, Split, I IV3, With Preserve, Inj 07/28/2015,07/23/2014,09/30/2013,11/0 06/2012,08/07/2011,08/08/2010,08/16/20 09,10/05/2008,09/11/2007,09/20/2006 Seasonal Influenza, Trivalen t, Adjuvanted, 65+ yrs 08/04/2020 TD, Preservative Free 04/11/2010 04/21/2010 TDAP (age 10 and older)(Boostrix) 04/01/2013 Varicella Zoster Vaccine (Adult) 12/23/2008 Zoster Vaccine Recombinant (Shingrix) 12/06/2018 ,06/04/2018 documented as of this encounter Social History Tobacco Use Types Packs/Day Years Used Date Smoking Tobacco: Some Days Cigarettes 1 28 Last attempted to quit: 04/24/1980 Cigars Smokeless Tobacco: Never Comments:1979 Has occasional cigar Alcohol Use Standard Drinks/Week Comments Yes 0 [...] No 04/03/2022 documented as of this encounter Plan of Treatment Upcoming Encounters Date Type Department Care Team (Late st Contact Info) Description 12/11/2023 1:00 PM EST Nurse Only Ancillary Department, [address] [address] [place], Nurse Annual Wellness [address] [place] [address] 12/19/2023 10:15 AM EST Office Visit Orthopaedics [facility] [address] [place] [address] Darrel Lovell PA-C [address] [place] [address] 04/15/2024 1:30 PM EDT Office Visit Cardiology, [facility] [address] [place] [address] Julisa Hernandez CRNP [address] [place] [address] Health Maintenance Due Date Last Done Comments DISCUSS TOBACCO CESSATION (REFER TO SMARTSET #3291) 1937 *BISPHONATE OR OTHER ACCEPTABLE MEDICATION NEEDED FOR OSTEOPOROSIS (REFER TO SMARTSET #1146) 12/09/2017 DXA Scan 11/15/2022 11/15/2020, 08/0 01/2016, 05/18/2014, Additional history exists DTaP,Tdap,and Td Vaccines (2 - Td or Tdap) 04/01/2023 04/01/2013, 04/11/2010, 12/10/1998 AAA Monitoring 04/07/2023 04/07/2022, 05/20, 06/30/2020, Additional history exists Depression Screening 12/11/2023 12/11/2022 HbA1c 03/19/2024 03/19/2023, 03/19, 12/10/1998 Albumin/Creatinine Ratio 05/25/2024 05/25/2021, 12/2018 Hepatitis B Completed 06/21/1999, 01/1999, 01/19/1999, Additional history exists Pneumococcal Vaccine: 65+ Years Completed 04/20/2015, 03/18/2009, 12/05/2001 Zoster Vaccines Completed 12/06/2018, 05/19, 12/23/2008 VITAMIN D LEVEL ONCE IN A LIFETIME-USE SMARTSET# [id number] Completed 05/25/2021, 11/20/2018, 07/13/2017, Additional history exists [...] Documents on File Type Date Recorded Patient Industrial Automation Specialist Expl anation POLST 01/29/2023 [place] [facility] FOR LIFE-SUSTAINING TREATMENT Latest Code Status on [...] the patient have Health Care Power of Surgeon/President? No Full Code 06/08/2010 12:41 AM 06/08/2010 9:05 AM This order reflects the patients wishes and were consensually agreed upon. Question Answer Comments Discussion of Advance Directives occurred with: Patient Does the patient have a Living Will? No Does the patient have Health Care Power of Surgeon/President? No Healthcare Agents on File Name Relationship Healthcare Agent Relationship Communication Hawa wheeler Spouse First Alternate Health Care Agent Care Teams Supervisor Marble Relationship Specialty Start Date End Date Kenny Osborn MD [address] [place] [address] PCP - General 08/29/05 documented as of this encounter
--- OUTSIDE RECORDS SUMMARY | 2023-12-17 21:37 | External Medical Summary | Summary of Care ---
Author Name Unknown Organization [facility] Address [address] [facility] [place] [address] Phone [phone] Care Team Providers Care Approver Name Role Phone Kenny Osborn MD Primary Care Provider [phone] Encounter Details Date Type Department Care Team [...] amlodipine, metoprolol Will continue to monitor by [facility] nursing staff. 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 [address] [place] [address] Darrel Lovell PA-C [address] [place] [address] 04/15/2024 1:30 PM EDT Office Visit Cardiology, [facility] [address] [place] [address] Julisa Hernandez CRNP [address] [place] [address] Health Maintenance Due Date Last Done Comments [...] D LEVEL ONCE IN A LIFETIME-USE SMARTSET# [id number] Completed 05/25/2021, 11/20/2018, 07/13/2017, Additional history exists [...] Documents on File Type Date Recorded Patient Chip Drier Expl anation POLST 01/29/2023 [place] OR [facility] FOR LIFE-SUSTAINING TREATMENT [...] the patient have Health Care Power of Budget Consultant? No Full Code 06/08/2010 12:41 AM 06/08/2010 9:05 AM This order reflects the patients wishes and were consensually agreed upon. Question Answer Comments Discussion of Advance Directives occurred with: Patient Does the patient have a Living Will? No Does the patient have Health Care Power of Budget Consultant? No Healthcare Agents on File Name Relationship Healthcare Agent Relationship Communication Hawa wheeler Spouse First Alternate Health Care Agent Care Teams Approver Relationship Specialty Start Date End Date Kenny Osborn MD [address] [place] [address] PCP - General 08/29/05 documented as of this encounter
--- OUTSIDE RECORDS SUMMARY | 2023-12-17 21:37 | External Medical Summary | Summary of Care ---
Author Name Unknown Organization [facility] Address [address] [place] [address] Phone [phone] Care Team Providers Care Urban Redevelopment Specialist Name Role Phone Kenny Osborn MD Primary Care Provider [phone] Reason for Visit * Reason Onset Date Comments Advice 12/11/2023 Encounter Details Date Type Department Care Team (Late st Contact Info) Description 12/11/2023 Telephone [facility] [address] [place] [address] Kenny Osborn MD [address] [place] [address] Advice Allergies Active Allergy Reactions [...] amlodipine, metoprolol Will continue to monitor by [facility] nursing staff. Iron deficiency anemia 04/03/2022 Old [place] (myocardial infarction) 01/13/2020 Dissection of right iliac [...] mRNA, LNP-s, No Pre serve, 2-Dose Series ([employer]) 11/16/2021,02/14/2021,01/18/2021 COVID-19, LNP-s, No Preserve , Jv-sucrose, Ages 12+ (Pfizer) 04/26/2022 COVID-19, MRNA-LNP, 23-24, P F, 50 MCG/0.5 mL, 12 YRS AND ABOVE, IM (MODERNA-Spikevax) 08/27/2023 Covid-19, Mrna, Lnp-s, Pf, B ivalent, 30 Mcg, IM, 12 yrs and above ([employer]) 08/22/2022 Diptheria/Tetanus (Adult) 12/10/1998 Hepatitis A Vaccine [...] encounter Miscellaneous Notes * Telephone Encounter - Bryanna Martin NRCMA - 12/13/2023 1:36 PM EST I spoke with pt and he is agreeable if this is "ok with Dr Carlin" In reviewing chart I see that pt is taking amlodipine 5mg BID now. Please verify the dose to increase to, if still desired. Pt will need [place] new [place] [facility] [place] [facility] [place] call back to confirm. ROMEL [...] 12/19/2023 10:15 AM EST Office Visit Orthopaedics [facility] [address] [place] [address] Darrel Lovell PA-C [address] [place] [address] 01/21/2024 2:00 PM EST Office Visit [facility], [place] [address] [facility] [place] [phone] [facility] [address] [facility] [address] 04/15/2024 1:30 PM EDT Office Visit Cardiology, [facility] [address] [place] [address] Julisa Hernandez CRNP [address] [place] [address] 12/17/2024 11:00 AM EST Nurse Only Ancillary Department, [place] [address] [facility] [address] [place], Nurse [facility] [address] [facility] [address] Health Maintenance Due Date Last Done Comments DISCUSS TOBACCO CESSATION (REFER TO SMARTSET #3291) 1937 *BISPHONATE OR OTHER ACCEPTABLE MEDICATION NEEDED FOR OSTEOPOROSIS (REFER TO SMARTSET #1146) 12/09/2017 DXA Scan 11/15/2022 11/15/2020, 01/2016, 05/18/2014, Additional history exists AAA Monitoring 04/07/2023 04/07/2022, 05/20, 06/30/2020, Additional history exists HbA1c 03/19/2024 03/19/2023, 03/19, 12/10/1998 Albumin/Creatinine Ratio 05/25/2024 05/25/2021, 12/2018 Depression Screening 12/11/2024 12/11/2023 DTaP,Tdap,and Td Vaccines (3 - Td or Tdap) 07/16/2033 07/16/2023, 04/01/2013, 04/11/2010, Additional history exists Hepatitis B Completed 06/21/1999, 0801/1999, 01/19/1999, Additional history exists Pneumococcal Vaccine: 65+ Years Completed 04/20/2015, 03/18/2009, 12/05/2001 Zoster Vaccines Completed 12/06/2018, 05/19, 12/23/2008 VITAMIN D LEVEL ONCE IN A LIFETIME-USE SMARTSET# [id number] Completed 05/25/2021, 11/20/2018, 07/13/2017, Additional history exists [...] Documents on File Type Date Recorded Patient Social Media Senior Associate Expl anation POLST 01/29/2023 [place] [facility] FOR LIFE-SUSTAINING TREATMENT Latest Code Status on [...] the patient have Health Care Power of Top And Trim Worker? No Full Code 06/08/2010 12:41 AM 06/08/2010 9:05 AM Thi s order reflects the patients wishes and were consensually agreed upon. Question Answer Comments Discussion of Advance Directives occurred with: Patient Does the patient have a Living Will? No Does the patient have Health Care Power of Top And Trim Worker? No Healthcare Agents on File Name Relationship Healthcare Agent Relationship Communication Hawa wheeler Spouse First Alternate Health Care Agent Care Teams Urban Redevelopment Specialist Relationship Specialty Start Date End Date Kenny Osborn MD [address] [facility] [place] [phone] PCP - General 08/29/05 documented as of this encounter
--- OUTSIDE RECORDS SUMMARY | 2023-12-17 21:37 | External Medical Summary | Summary of Care ---
Author Name Unknown Organization [facility] Address [address] [place] [address] Phone [phone] Care Team Providers Care Research Geologist Name Role Phone Kenny Osborn MD Primary Care Provider [phone] Reason for Visit * Reason Onset Date Comments Advice 12/11/2023 Encounter Details Date Type Department Care Team (Late st Contact Info) Description 12/11/2023 Telephone [facility] [address] [place] [address] Kenny Osborn MD [address] [place] [address] Advice Allergies Active Allergy Reactions Criticality Noted Date Comments Diltiazem 06/21/1999 RASH Hydantoins Seizure High 04/18/2022 Phenytoin Sodium 01/19/1999 SEIZURES documented as of this encounter (statuses as of 12/11/2023) Medications Medication Sig Dispensed Refills Start Date [...] as of this encounter (statuses as of 12/11/2023) Active Problems Problem Noted Date Diagnosed Date Prediabetes 03/27/2023 Hypertensive heart disease w ith chronic systolic congestive heart failure 03/13/2023 Chronic systolic heart failure 05/01/2022 Last Assessment & Plan: Euvolemic. Checking wt daily Continue furosemide 20mg daily. BP 102/62--asymptomatic. Continues amlodipine, metoprolol Will continue to monitor by [facility] nursing staff. Iron deficiency anemia 04/03/2022 Old [place] (myocardial infarction) 01/13/2020 Dissection of right iliac [...] as of this encounter (statuses as of 12/11/2023) Resolved Problems Problem Noted Date Diagnosed Date [...] as of this encounter (statuses as of 12/11/2023) Immunizations Name Administration Dates Next Due COVID-19 mRNA, LNP-s, No Pre serve, 2-Dose Series ([employer]) 11/16/2021,02/14/2021,01/18/2021 COVID-19, LNP-s, No Preserve , Jv-sucrose, Ages 12+ (Pfizer) 04/26/2022 COVID-19, MRNA-LNP, 23-24, P F, 50 MCG/0.5 mL, 12 YRS AND ABOVE, IM (MODERNA-Spikevax) 08/27/2023 Covid-19, Mrna, Lnp-s, Pf, B ivalent, 30 Mcg, IM, 12 yrs and above ([employer]) 08/22/2022 Pneumococcal Conjugate Vacc, 13 Valent (Prevnar) 04/20/2015 Pneumococcal Polysaccharide PPV23 (Pneumovax) 03/18/2009 RSV Vac., Recomb, Adjuvant, PF,0.5 Ml (Arexvy) 10/26/2023 Season Influenza, Quad, PF, Adjuvanted, 65+ Yrs, IM (FLUAD) 08/13/2023 Seasonal Influenza, PF, 6 M & above, IM , (FluLaval or Fluzone) 07/22/2019,08/22/2018,08/14/2017 Seasonal Influenza, Quadriva lent Hd (Fluzone Hd) 08/31/2022,08/11/2021 Seasonal Influenza, Quadriva lent, No Preserve, IM 08/10/2016 08/10/2017 Seasonal Influenza, Split, I IV3, With Preserve, Inj 07/28/2015,07/23/2014,09/30/2013,06/2012,08/07/2011,08/08/2010,08/16/20 09,10/05/2008,09/11/2007,09/20/2006 Seasonal Influenza, Trivalen t, Adjuvanted, 65+ [...] encounter Miscellaneous Notes * Telephone Encounter - Charlotte Rice RN [...] 12/19/2023 10:15 AM EST [facility] [place] [address] Darrel Lovell PA-C [address] [place] [address] 01/21/2024 2:00 PM EST Office Visit [facility], [place] [address] [facility] [place] [phone] Kenny Osborn MD [address] [facility] [address] 04/15/2024 1:30 PM EDT Office Visit Cardiology, [facility] [address] [facility] [place] [address] Julisa Hernandez CRNP [address] [place] [address] 12/17/2024 11:00 AM EST Nurse Only Ancillary Department, [place] [address] [facility] [place] [address] [place], Nurse Annual Wellness [address] [facility] [address] Health Maintenance Due Date Last Done Comments DISCUSS TOBACCO CESSATION (REFER TO SMARTSET #3291) 1935 *BISPHONATE OR OTHER ACCEPTABLE MEDICATION NEEDED FOR OSTEOPOROSIS (REFER TO SMARTSET #1146) 12/09/2017 DXA Scan 11/15/2022 11/15/2020, 080 01/2016, 05/18/2014, Additional history exists AAA Monitoring [...] D LEVEL ONCE IN A LIFETIME-USE SMARTSET# [id number] Completed 05/25/2021, 11/20/2018, 07/13/2017, Additional history exists [...] Documents on File Type Date Recorded Patient Dobby Loom Weaver Expl anation POLST 01/29/2023 [place] OR [facility] FOR LIFE-SUSTAINING TREATMENT Latest Code Status [...] the patient have Health Care Power of Property Preservation Specialist? No Full Code 06/08/2010 12:41 AM 06/08/2010 9:05 AM This order reflects the patients wishes and were consensually agreed upon. Question Answer Comments Discussion of Advance Directives occurred with: Patient Does the patient have a Living Will? No Does the patient have Health Care Power of Property Preservation Specialist? No Healthcare Agents on File Name Relationship Healthcare Agent Relationship Communication Hawa wheeler Spouse First Alternate Health Care Agent Care Teams Research Geologist Relationship Specialty Start Date End Date Kenny Osborn MD [address] [place] [address] PCP - General 08/29/05 documented as of this encounter
--- OUTSIDE RECORDS SUMMARY | 2023-12-17 21:37 | External Medical Summary | Summary of Care ---
Author Name Unknown Organization [facility] Address [address] [place] [address] Phone [phone] Care Team Providers Care Senior Adults Director Name Role Phone Kenny Osborn MD Primary Care Provider [phone] Reason for Visit * Reason Comments Adult Annual Wellness Visit, Subsequent Visit Encounter Details Date Type Department Care Team (Late st Contact Info) Description 12/11/2023 1:00 PM EST Nurse Only Ancillary Department, [place] [address] [place] [address] [place], Nurse Annual Wellness [address] [place] [address] Adult Annual Wellness Visit, Subsequent Visit Allergies Active Allergy Reactions Criticality Noted Date Comments Diltiazem 06/21/1999 RASH Hydantoins Seizure High 04/18/2022 Phenytoin Sodium 01/19/1999 SEIZURES documented as of this encounter (statuses as of 12/11/2023) Medications Medication Sig Dispensed Refills Start Date End Date Status MULTIVITAMIN TABS OR one pill each day 100 0 3 Active Ferrous Sulfate (IRON) 28 MG Tablet Take 1 Tablet by mouth in the morning. 0 Active Diclofenac Sodium 1 % gelIndications:Gen eralized osteoarthritis Place 2 g topically on the skin 4 times a day as needed for Pain. 100 g 5 0 Active Aspirin 81 MG Oral Tablet Chewable Take by mouth 1 Tablet in the morning. with food.. 100 Tablet 5 2 Active oxygen IN GAS Administer into nostril 2 L/min(Oxygen) continuous . 1 Each 0 2 Active Clopidogrel Bisulfate 75 MG Oral Tablet (pLAVix) Take 1 Tablet by mouth in the morning. 90 Tablet 3 3 Active Rosuvastatin Calcium 40 MG Oral Tablet (Crestor)Indicatio ns:ASCVD (arteriosclerotic cardiovascular disease),Aortocoro nary bypass status,Dyslipidemi a, goal LDL below 70 Take 1 Tablet by mouth in the morning. 90 Tablet 3 3 Active Nitroglycerin 0.4 MG Sublingual Tablet Sublingual (Nitrostat) Place 1 Tablet under the tongue every 5 minutes as needed for Pain, Chest. 180 Tablet 3 3 Active Isosorbide Mononitrate ER 120 MG Oral Tablet Extended Release 24 Hour (Imdur)Indications :HTN, goal below 140/90 TAKE 1 TABLET BY MOUTH IN THE MORNING 90 Tablet 3 3 Active Spironolactone 25 MG Oral Tablet (Aldactone)Indicat ions:HTN, goal below 140/90,Aortocorona ry bypass status TAKE 1 TABLET BY MOUTH EVERY MORNING 90 Tablet 3 3 Active Ezetimibe 10 MG Oral Tablet (Zetia)Indications :Dyslipidemia, goal LDL below 70 TAKE 1 TABLET BY MOUTH EVERY DAY 90 Tablet 3 3 Active Furosemide 20 MG Oral Tablet (Lasix)Indications :Chronic systolic heart failure (HCC),HTN, goal below 140/90 TAKE 1 TABLET BY MOUTH EVERY MORNING 90 Tablet 1 3 Active amLODIPine Besylate 5 MG Oral Tablet (Norvasc)Indicatio ns:ASCVD (arteriosclerotic cardiovascular disease),Aortocoro nary bypass status,HTN, goal below 140/90 Take 1 Tablet by mouth in the morning and 1 Tablet before bedtime. 180 Tablet 3 3 Active Metoprolol Tartrate 50 MG Oral Tablet (Lopressor)Indicat ions:HTN, goal below 150/90,Palpitation s Take 1 Tablet by mouth in the morning and 1 Tablet at noon and 1 Tablet in the evening. 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 1 Each 0 3 12/11/19 24 Discontinu ed(End of Procedure) documented as of this encounter (statuses as of 12/11/2023) Active Problems Problem Noted Date Diagnosed Date Prediabetes 03/27/2023 Hypertensive heart disease w ith chronic systolic congestive heart failure 03/13/2023 Chronic systolic heart failure 05/01/2022 Last Assessment & Plan: Euvolemic. Checking wt daily Continue furosemide 20mg daily. BP 102/62--asymptomatic. Continues amlodipine, metoprolol Will continue to monitor by [facility] nursing staff. Iron deficiency anemia [...] mRNA, LNP-s, No Pre serve, 2-Dose Series ([employer]) 11/16/2021,02/14/2021,01/18/2021 COVID-19, LNP-s, No Preserve , Jv-sucrose, Ages 12+ ([employer]) 04/26/2022 COVID-19, MRNA-LNP, 23-24, P F, 50 MCG/0.5 mL, 12 YRS AND ABOVE, IM (MODERNA-Spikevax) 08/27/2023 Covid-19, Mrna, Lnp-s, Pf, B ivalent, 30 Mcg, IM, 12 yrs and above (Pfizer) 08/22/2022 Pneumococcal Conjugate Vacc, 13 Valent (Prevnar) [...] Used Date Smoking Tobacco: Some Days Cigarettes 12 16 Last attempted to quit: 04/24/1980 Cigars Smokeless Tobacco: Never Tobacco Cessation:Ready to Q uit: Not Asked; Counseling Given: Not Answered Comments:1979 quit cigarettes Has occasional cigar 2-3 month, only in summer Alcohol Use Standard Drinks/Week Comments Yes 0 (1 standard drink = 0.6 oz pur e alcohol) / bottle wine per month PHQ-2 Answer Date Recorded PHQ Adult Total Score 2 12/11/2022 Hunger Vital Sign Answer Date Recorded Within the past 12 months, y ou worried that your food would run out before you got the money to buy more. Never true 12/11/19 Within the past 12 months, t he [...] on file documented as of this encounter Last Filed Vital Signs Vital Sign Reading Time Taken Comments Blood Pressure 108/60 12/11/2023 11:42 AM EST Pulse 60 12/11/2023 11:42 AM EST Temperature 36.7 C (98 F) 12/11/2023 11:42 AM EST Respiratory Rate - - Oxygen Saturation 93% 12/11/2023 11:42 AM EST Inhaled Oxygen Concentration - - Weight 62.3 kg (137 lb 4.8 oz) 12/11/2023 11:42 AM EST Height 158.1 cm (5' 2.25") 12/11/2023 11:[address] Body Mass Index 24.91 12/11/2023 11:42 AM EST documented in this encounter Functional Status Functional Status Response [...] No 04/03/2022 documented as of this encounter Patient Instructions * Patient Instructions* Charlotte Rice RN - 12/11/2023 12:03 PM EST Patient Instructions - Fall Prevention (This education is for all patients over 65 regardless of symptoms) Remember to take your current medications as prescribed. In order to prevent falls, you are encouraged to: Exercise Utilize assistive/adaptive devices Avoid multifocal lenses when walking Avoid hazards in home Maintain a regular toileting schedule Any questions please contact our office. Preventing Falls in the Home (This education is for all patients over 65 regardless of symptoms) As you get older, falls are more likely. Thats because your reaction time slows. Your muscles and joints may also get stiffer, making them less flexible. Illness, medications, and vision changes can also affect your balance. A fall could leave you unable to live on your own. To make your home safer, follow these tips: Floors Put nonskid pads under area rugs Remove throw rugs Replace worn floor coverings Tack carpets firmly to each step on carpeted stairs. Put nonskid strips on the edges of uncarpeted stairs Keep floors and stairs free of clutter and cords Arrange furniture so there are clear pathways Clean up any spills right away Bathrooms Install grab bars in the tub or shower Apply nonskid strips or put a nonskid rubber mat in the tub or shower Sit on a bath chair to bathe Use bathmats with nonskid backing Lighting Keep a flashlight in each room Put a nightlight along the pathway between the bedroom and the bathroom Mansi Patient Education Copyright 2008 - 2010 [employer] except where otherwise noted Preventing Falls: Exercises to Improve Balance, Flexibility, Strength, and Staying Power (This education is for all patients over 65 regardless of symptoms) Certain types of exercises may help make you less likely to fall. Try the ones below. Or do other exercises that your healthcare provider suggests. Depending on your health, you may need to start slowly. Dont let that stop you. Even small amounts of exercise can help you. Be sure to talk to yourhealthcare provider before starting any exercise program. Improve Balance Many types of exercise can help improve balance. Kemar chi and yoga are good examples. Heres another one to try. You can do it anytime and almost anywhere. Stand next to a counter or solid support. Push yourself up onto your tiptoes. Hold for 5 seconds. If you start to lose your balance, hold on to the counter. Rest and repeat 5 times. Work up to holding for 20 to 30 seconds, if you can. Increase Flexibility Being more flexible makes it easier for you to move around safely. Try exercises like the seated hamstring stretch. Sit in a chair and put one foot on a stool. Straighten your leg and reach with both hands down either side of your leg. Reach as far down your leg as you can. Hold for about 20 seconds. Go back to the starting position. Then repeat 5 times. Switch legs. Build Strength Resistance exercises help build strength. You can do them without equipment. Or you can use weights, elastic bands, or special machines. One such exercise is called the biceps curl. You can hold a 1 pound weight or even a can of soup. Do this exercise at least 3 times a week. Strive for everyday. Sit up straight in a chair. Keep your elbow close to your body and your wrist straight. Bend your arm, moving your hand up to your shoulder. Then slowly lower your arm. Repeat 5 times. Switch to the other arm. Build Your Staying Power Aerobic exercises make your heart and lungs stronger so you can keep moving longer. Walking and swimming are two of the best types of exercises you can do. Using a stationary bike is great, too. Find an aerobic exercise that you enjoy. Start slowly and build up. Even 5 minutes is helpful. Aimfor a goal of 30 minutes, at least 3 times a week. You dont have to do 30 minutes in one session. Break it up and walk a little throughout the day. More Helpful Tips Start easy. Slowly work up to doing more. Talk with your healthcare provider about the best exercises for you. Call senior centers or health clubs about exercise programs. If needed, have a family member watch you walk every so often to check your stability. Exercise with a friend. Choose an activity you both enjoy. Try exercises that you can do anytime, anywhere. Here are two examples. Have someone with you when you first try these: Practice walking by placing one foot right in front of the other. Stand up and sit down 10 times. Repeat this throughout the day. Mansi Patient Education Copyright 2008 - 2010 [employer] except where otherwise noted. Preventing Falls: Moving Safely Using a Cane or Walker (This education is for all patients over 65 regardless of symptoms) Keep the cane away from your feet so you dont trip. A walking aid, such as a cane or walker, can help you stay more independent and avoid falls. Remember to keep your walking aid within easy reach when youre in a chair or in bed. And learn how to use it safely so you dont injure yourself. Using a Cane If you have a stronger side, hold the cane on that side. Get your balance. Move the cane and your weaker leg forward. Support your weight on both the cane and your weaker side. Step with your stronger leg. Start again from step 1. If youre using a folding walker, be sure you know how to lock it open. Check that its locked open before each use. Using a Walker Roll the walker (or lift it, if youre using one without wheels) forward about 12 inches. Step forward with your weaker leg first. Use the walker to help keep your balance. Bring your other foot forward to the center of the walker. Start again from step 1. Helpful Tips Check with your healthcare provider about the right walking aid to use. Ask about a walker with a seat attached. Check the tips of your cane or walker to make sure they have nonskid covers. Move slowly from room to room. Dont lala. Sit down to get dressed. Use a margarito pack or backpack to keep your hands free. Get help for jobs that mean climbing, even on a stepstool. [employer] Patient Education Copyright 2008 - 2010 [employer] except where otherwise noted. Treating Urinary Incontinence in Men (This education is for all patients over 65 regardless of symptoms) You can't always control the release of urine. You may leak urine. Or you may not be able to hold your urine until you can get to a bathroom. This is called urinary incontinence. The problem can be managed. Talk to your doctor about your treatment options. Taking Medications Prescription medications may help you. They may: Help the sphincter to work better. (This is the muscle that closes to keep urine from leaking out of the bladder.) Help stop the bladder from radhika too often to push urine out. Help the bladder muscles contract with more force. Help relax the sphincter muscle and allow urine to flow more freely. Making Changes to Your Routine Certain changes in your daily routine may help. These include: Avoiding caffeine and alcohol. Using timed voiding. This is following a schedule for drinking fluids and urinating. Doing Kegel exercises daily. These exercises involve tightening the muscles in your sphincter and around your bladder to help strengthen them. Your doctor can explain how to do them. Using a Catheter A catheter is a narrow tube that is inserted through the urethra into the bladder. It drains urine.A condom catheter covers the penis. It channels urine into a collection bag. It is worn most of thetime. Intermittent catheterization means inserting a catheter to drain the bladder, then removing it. This is done on a regular schedule. Having Surgery If other options don't work, surgery may be recommended. If surgery is an option, your healthcare provider can discuss it with you and explain its risks and benefits. Healing After Prostate Surgery Surgery on the prostate gland can cause incontinence. Most often, the incontinence is only for a short time. It clears up when healing is complete. Very rarely, prostate surgery can result in permanent incontinence. Hi Mr. Wheeler, As your primary care physician, I know that regular visits with my patients who have several chronic conditions can go a long way in helping you stay healthy. Many times, the clinic team and I are in touch with you and/or other care team members between office visits to adjust medications, discuss any changes in your health, and review our care plan to make sure it is still meeting your needs. I am dedicated to helping you take a more active role in your overall care. It is important that there are resources available to you, so I created a personalized plan of care with a Health Calendar for you, which is included on the next page of this letter. Below is a list that summarizes your electronic health record: Health Maintenance Due: Health Maintenance Due Topic Date Due DISCUSS TOBACCO CESSATION (REFER TO SMARTSET #6424) Never done *BISPHONATE OR OTHER ACCEPTABLE MEDICATION NEEDED FOR OSTEOPOROSIS (REFER TO SMARTSET #4698) Never done DXA Scan 11/15/2022 DTaP,Tdap,and Td Vaccines (2 - Td or Tdap) 04/01/2023 AAA Monitoring 04/07/2023 Depression Screening 12/11/2023 Current Medication List: (as of 09/20/2006 (in office), Visit date not found (telemedicine) ) Current Outpatient Medications Medication Sig Dispense Refill MULTIVITAMIN TABS OR one pill each day 100 0 Ferrous Sulfate (IRON) 28 MG Tablet Take 1 Tablet by mouth in the morning. Diclofenac Sodium 1 % gel Place 2 g topically on the skin 4 times a day as needed for Pain. 100g 5 Aspirin 81 MG Oral Tablet Chewable Take by mouth 1 Tablet in the morning. with food.. 100 Tablet 5 Clopidogrel Bisulfate 75 MG Oral Tablet (pLAVix) Take 1 Tablet by mouth in the morning. 90 Tablet 3 Rosuvastatin Calcium 40 MG Oral Tablet (Crestor) Take 1 Tablet by mouth in the morning. 90 Tablet 3 Isosorbide Mononitrate ER 120 MG Oral Tablet Extended Release 24 Hour (Imdur) TAKE 1 TABLET BY MOUTH IN THE MORNING 90 Tablet 3 Spironolactone 25 MG Oral Tablet (Aldactone) TAKE 1 TABLET BY MOUTH EVERY MORNING 90 Tablet 3 Ezetimibe 10 MG Oral Tablet (Zetia) TAKE 1 TABLET BY MOUTH EVERY DAY 90 Tablet 3 Furosemide 20 MG Oral Tablet (Lasix) TAKE 1 TABLET BY MOUTH EVERY MORNING 90 Tablet 1 amLODIPine Besylate 5 MG Oral Tablet (Norvasc) Take 1 Tablet by mouth in the morning and 1 Tablet before bedtime. 180 Tablet 3 Metoprolol Tartrate 50 MG Oral Tablet (Lopressor) Take 1 Tablet by mouth in the morning and 1 Tablet at noon and 1 Tablet in the evening. 90 Tablet 11 carBAMazepine 200 MG Oral Tablet (Tegretol) 1 tablet by mouth 2 times daily 180 Tablet 3 oxygen IN GAS Administer into nostril 2 L/min(Oxygen) continuous . 1 Each 0 Nitroglycerin 0.4 MG Sublingual Tablet Sublingual (Nitrostat) Place 1 Tablet under the tongue every 5 minutes as needed for Pain, Chest. 180 Tablet 3 No current facility-administered medications for this visit. Current List of Allergies: (as of 09/20/2006 (in office), Visit date not found (telemedicine) ) Review of patient's allergies indicates: Allergen Reactions Hydantoins Seizure Diltiazem RASH Phenytoin Sodium SEIZURES Most Recent Lab Results: Results for orders placed or performed in visit on 10/01/23 ECHO, COMPLETE (2D), TRANS-THORACIC Result Value Ref Range LEFT VENTRICULAR EJECTION FRACTION 55 % Sincerely, Kenny Osborn MD 12/11/2023 Zizerones deCarta Calendar (as of 09/20/2006 (in office), Visit date not found (telemedicine) ) Care needs Care needs Last completed Due next Discuss quitting tobacco use --- Never done Discuss medication for ostoporosis --- Never done Bone Density 11/15/2020 11/15/2022 Diphtheria, tetanus & pertussis vaccines (2 - Td or Tdap) 04/01/2013 04/01/2023 Yearly abdominal aortic aneurysm CT scan or ultrasound 04/07/2022 04/07/2023 A1C blood sugar test 03/19/2023 03/19/2024 Urine albumin/creatinine test 05/25/2021 05/25/2024 As you look over the recommended services, be sure to check with your insurance company to determine what's covered. [employer]ite is a great tool that helps you review your medical record online, including test results, doctor notes and your health summary. You can also schedule appointments with me and other members of your care team, request prescription refills and ask for advice related to your medical conditions at [email or web address]. documented in this encounter Progress Notes * Charlotte Rice RN - 12/11/2023 11:47 AM EST AD8 Dementia Screening Interview Person answering questions: patient Remember, "Yes, a change" indicates that there has been a change in the last several years caused by cognitive (thinking and memory) problems 1. Problems with judgement (eg: problems making decisions, bad financial decisions, problems with thinking). No (0) 2. Less interest in hobbies/activities. No (0) 3. Repeats the same things over and over (questions, stories, or statements). No (0) 4. Trouble learning how to use a tool, appliance, or gadget (eg: VCR, computer, microwave, remote control). No (0) 5. Forgets correct month or year. No (0) 6. Trouble handling complicated financial affairs (eg: balancing checkbook, income taxes, paying bills). No (0) 7. Trouble remembering appointments. No (0) 8. Daily problems with thinking and/or memory. No (0) TOTAL AD8: 0 - AD8 Dementia Screening Score The final score is a sum of the number items marked "Yes, A Change". 0 - 1: Normal cognition; 2 or greater: Cognitive impairments is likely to be present - further testing required Adult Annual Wellness Visit: Ayla Wheeler is a 88 year old male who presents for an Adult Annual Wellness Visit. Depression Screening: Did the patient complete the screening questionnaire for Depression? Yes Is the patient's total score for Depression 15 or greater? No, no further intervention needed, unless requested by patient. Did the patient answer positively to the suicide question? No, no further intervention needed, unless requested by patient. In general, compared to other people your age, what would you say that your health is? Very Good Ht Readings from Last 1 Encounters: 12/11/23 1.581 m (5' 2.25") Wt Readings from Last 1 Encounters: 12/11/23 62.3 kg (137 lb 4.8 oz) Body Mass Index: BMI Less than 30 Body mass index is 24.91 kg/m. 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 historical Past Surgical History: Procedure Laterality Date ANESTH, UPPER GI ENDOSCOPIC PROCS 06/09/2010 ANESTHESIA FOR UPPER GI ENDOSCOPIC PROCEDURES (ERCP OR UPPER GI) performed by MICHEAL BUTLER at ENDOSCOPY [facility] ANESTH, UPPER GI ENDOSCOPIC PROCS 06/10/2010 ANESTHESIA FOR UPPER GI ENDOSCOPIC PROCEDURES (ERCP OR UPPER GI) performed by MICHEAL BUTLER at ENDOSCOPY [facility] ANESTH, UPPER GI ENDOSCOPIC PROCS 07/20/2010 ANESTHESIA FOR UPPER GI ENDOSCOPIC PROCEDURES (ERCP OR UPPER GI) performed by MICHEAL BUTLER at ENDOSCOPY [facility] BYPASS GRAFT ANGIOGRAPHY W/LEFT HEART CATH Bilateral 04/04/2022 BYPASS GRAFT ANGIOGRAPHY W/LEFT HEART CATH performed by Lalo Michaels DO at CARDIAC LABS [facility] COLONOSCOPY 11/22 diverticuli/ [place] repeat 10 years COLONOSCOPY, DIAGNOSTIC (RECTUM) 07/09/2014 adenomatous & hyperplastic polyps, diverticulosis, repeat per PCP/COLONOSCOPY FLEXIBLE PROXIMALDIAGNOSTIC performed by Eleno Mancia MD at ENDOSCOPY [facility] [address] CORONARY ARTERIES BYPASS, THREE [facility] DENTAL SURGERY PROCEDURE NEC EGD, W/ENDOSCOPIC US 01/13/2011 UPPER GI ENDOSCOPY ENDOSCOPIC ULTRASOUND performed by MICHEAL BUTLER at ENDOSCOPY [facility] REPAIR INITIAL INGUINAL HERNIA REDUCIBLE AGE 5 OR MORE Inguinal Hernia Repair,5+Y/O,Reducibl REPAIR INITIAL INGUINAL HERNIA REDUCIBLE AGE 5 OR MORE Inguinal Hernia Repair,5+Y/O,Reducibl VASECTOMY 1978 No family history on file. Has patient ever had cancer? No Social History Tobacco Use Smoking status: Some Days Packs/day: 1.00 Years: 28.00 Additional pack years: 0.00 Total pack years: 28.00 Types: Cigars, Cigarettes Last attempt to quit: 04/24/1980 Years since quittin.6 Smokeless tobacco: Never Tobacco comments: 1979 quit cigarettes Has occasional cigar 2-3 month, only in summer Substance Use Topics Alcohol use: Yes Comment: OCC/ 1 bottle wine per month Vaping/E-Cigarette Use Vaping/E-Cigarette Use Never User Vaping/E-Cigarette Substances Nicotine No Other No Flavoring No THC No Cannabidiol (CBD) No Vaping/E-Cigarette Devices Disposable No Pre-filled or Refillable Cartridge No Refillable Tank No Pre-filled Pod No Tobacco/Alcohol screening completed today? Yes Hospital Care: Admissions (within the last year): [facility] 12/2022 ER within 30 days: No Does the patient have an Advance Directives/Living Will? Yes Last Physical Exam: Last physical exam: 03/2023 Does patient see primary provider regularly? Yes Does patient see other providers? Yes, Specialist Patient Care Team updated? Yes Review of patient's allergies indicates: Allergen Reactions Hydantoins Seizure Diltiazem RASH Phenytoin Sodium SEIZURES Immunization History Administered Date(s) Administered COVID-19 mRNA, LNP-s, No Preserve, 2-Dose Series ([employer]) 01/18/2021, 02/14/2021, 11/16/2021 COVID-19, LNP-s, No Preserve, Jv-sucrose, Ages 12+ ([employer]) 04/26/2022 COVID-19, MRNA-LNP, 23-24, PF, 50 MCG/0.5 mL, 12 YRS AND ABOVE, IM (MODERNA- Spikevax) 08/27/2023 Covid-19, Mrna, Lnp-s, Pf, Bivalent, 30 Mcg, IM, 12 yrs and above (Pfizer) 08/22/2022 Diptheria/Tetanus (Adult) 12/10/1998 Hepatitis A Vaccine 12/10/1998, 06/21/1999 Hepatitis B Vaccine 12/10/1998, 01/19/1999, 06/21/1999 Pneumococcal Conjugate Vacc, 13 Valent (Prevnar) 04/20/2015 Pneumococcal Polysaccharide PPV23 (Pneumovax) 12/05/2001, 03/18/2009 RSV Vac., Recomb, Adjuvant, PF,0.5 Ml (Arexvy) 10/26/2023 Season Influenza, Quad, PF, Adjuvanted, 65+ Yrs, IM (FLUAD) 08/13/2023 Seasonal Influenza, PF, 6 M & above, IM , (FluLaval or Fluzone) 08/14/2017, 08/22/2018, 07/22/2019 Seasonal Influenza, Quadrivalent Hd (Fluzone Hd) 08/11/2021, 08/31/2022 Seasonal Influenza, Quadrivalent, No Preserve, IM 08/10/2016 Seasonal Influenza, Split, IIV3, With Preserve, Inj 09/08/2002, 09/29/2003, 01/10/2005, 09/12/2005,09/20/2006, 09/11/2007, 10/05/2008, 08/16/2009, 08/08/2010, 08/07/2011, 09/26/2012, 09/30/2013, 07/23/2014, 07/28/2015 Seasonal Influenza, Trivalent, Adjuvanted, 65+ yrs 08/04/2020 TD, Preservative Free 04/11/2010 TDAP (age 10 and older)(Boostrix) 04/01/2013 Varicella Zoster Vaccine (Adult) 12/23/2008 Zoster Vaccine Recombinant (Shingrix) 06/04/2018, 12/06/2018 Current Outpatient Medications Medication Sig Dispense Refill MULTIVITAMIN TABS OR one pill each day 100 0 Ferrous Sulfate (IRON) 28 MG Tablet Take 1 Tablet by mouth in the morning. Diclofenac Sodium 1 % gel Place 2 g topically on the skin 4 times a day as needed for Pain. 100 g 5 Aspirin 81 MG Oral Tablet Chewable Take by mouth 1 Tablet in the morning. with food.. 100 Tablet 5 Clopidogrel Bisulfate 75 MG Oral Tablet (pLAVix) Take 1 Tablet by mouth in the morning. 90 Tablet 3 Rosuvastatin Calcium 40 MG Oral Tablet (Crestor) Take 1 Tablet by mouth in the morning. 90 Tablet 3 Isosorbide Mononitrate ER 120 MG Oral Tablet Extended Release 24 Hour (Imdur) TAKE 1 TABLET BY MOUTH IN THE MORNING 90 Tablet 3 Spironolactone 25 MG Oral Tablet (Aldactone) TAKE 1 TABLET BY MOUTH EVERY MORNING 90 Tablet 3 Ezetimibe 10 MG Oral Tablet (Zetia) TAKE 1 TABLET BY MOUTH EVERY DAY 90 Tablet 3 Furosemide 20 MG Oral Tablet (Lasix) TAKE 1 TABLET BY MOUTH EVERY MORNING 90 Tablet 1 amLODIPine Besylate 5 MG Oral Tablet (Norvasc) Take 1 Tablet by mouth in the morning and 1 Tablet before bedtime. 180 Tablet 3 Metoprolol Tartrate 50 MG Oral Tablet (Lopressor) Take 1 Tablet by mouth in the morning and 1 Tablet at noon and 1 Tablet in the evening. 90 Tablet 11 carBAMazepine 200 MG Oral Tablet (Tegretol) 1 tablet by mouth 2 times daily 180 Tablet 3 oxygen IN GAS Administer into nostril 2 L/min(Oxygen) continuous . 1 Each 0 Nitroglycerin 0.4 MG Sublingual Tablet Sublingual (Nitrostat) Place 1 Tablet under the tongue every5 minutes as needed for Pain, Chest. 180 Tablet 3 No current facility-administered medications for this visit. 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 Yes Patient takes medications as prescribed? Yes Patient manages own medications: Yes Patient uses a pill box? Yes, refill(s) completed by self Dental Exam: No Encouraged twice yearly cleanings Eye Screening: No, Encouraged yearly exam Are you having trouble with hearing? No Do you use an assistive device to help your hearing? No Exercise Screening: does not exercise regularly Nutrition Assessment: Eats a balanced diet and Eats three meals a day Pain Screening: Are you having any pain? No Sleep Screening Tool 'STOP': Do you snore? No Do you feel fatigued during the day? No Do you wake up feeling like you haven't slept? No Have you been told you stop breathing at night? No Do you gasp for air or choke while sleeping? No Have you been told you have Sleep Apnea? No Do you have high blood pressure or are on medication(s) to control high blood pressure? Yes SCORE: If you check YES to two or more questions, make a referral for Obstructive Sleep Apnea Patient and Caregiver Support System: Patient lives with a spouse, and son Means of Transportation: Drives Rarely. Not a concern.Only a few times a month Patient lives in Two Story - How many stairs: 10 steps landing 4 more, stair chair, hand railing Community Resources: Not Applicable Functional Status and ADL Skills: Has patient ever had an amputation? No Functional Assessment: 72- Cares for self: unable to carry on normal activity or active work Ambulation: Patient ambulates with assistive device. Cane and Walker Dressing: Gets clothes and dresses without any assistance: Independent Able to move freely in chair or bed including turning over: Independent Repositioning (bed or chair): Not applicable Transfers: Independent Toileting: Goes to bathroom, uses toilet, arranges clothes and returns without any assistance: Independent Toileting: continent of bowel and incontinent of bladder Feeding: Self Bathing: Self; tub, grab bars, shower chair, mat to step out onto Requires none assistance with ADLs. Instrumental ADL's: Shopping: Maximum Assistance Housekeeping: Maximum Assistance Handling Finances: Independent DME Vendor Name: Not Applicable Fall Risk Assessment: Can the patient demonstrate that he can stand from a sitting position? Yes Has the patient had a fall within the last 6 months? Yes Does the patient have a problem with his gait or balance? Yes Does the patient take 4 or more prescription medicines? Yes Does the patient use sedatives or narcotics? No Fall Risk Factors Present: History of falls within the past 6 months Yes Cause of fall: Patient lost balance. Uses more than 4 medications Uses assistive devices Balance or gait disturbances Older than age 70 Yua-Tu-rio-Go Test: Time began at 1100. Patient stood from sitting position and walked approximately 10 feet, returned and sat down. Total time for rpn-sm-qcc-go test was 15 seconds. Exo-Ql-dzn-Go Test completed? Yes Gender Specific Preventative Plan: Health Maintenance Topic Date Due DISCUSS TOBACCO CESSATION (REFER TO SMARTSET #7969) Never done *BISPHONATE OR OTHER ACCEPTABLE MEDICATION NEEDED FOR OSTEOPOROSIS (REFER TO SMARTSET #2356) Never done DXA Scan 11/15/2022 DTaP,Tdap,and Td Vaccines (2 - Td or Tdap) 04/01/2023 AAA Monitoring 04/07/2023 Depression Screening 12/11/2023 HbA1c 03/19/2024 Albumin/Creatinine Ratio 05/25/2024 VITAMIN D LEVEL ONCE IN A LIFETIME-USE SMARTSET# [id number] Completed Hepatitis B Completed Influenza Vaccine (FLU shot) Completed Zoster Vaccines Completed Pneumococcal Vaccine: 65+ Years Completed COVID-19 Vaccine Completed MENINGOCOCCAL (MENACTRA/MENVEO) Aged Out GARDASIL-HPV IMMUNIZATION SERIES Aged Out Follow Up/ Referrals/Handouts: Smoker - Provided Quit Line. Depression screening - Completed Functional assessment - Completed Falls Risk screening - Completed, handout given Exercise screening - Encouraged patient to be as active as able, fall precautions Nutrition assessment -. Education Provided and Handouts Provided Pain screening - No concerns Incontinence screening - Incontinent of bladder, no new concerns Routine general medical examination at a health care facility (Primary) Risk and functional assessment Prediabetes Component Latest Ref Rng 03/19/2023 Hemoglobin A1C 4.0 - 5.6 % 6.0 (H) Estimated Average Glucose <126 mg/dL 126 (H) Continue to monitor and follow with PCP Dyslipidemia, goal LDL below 70 Component Latest Ref Rng 03/19/2023 Non-HDL Cholesterol <=159 mg/dL 90 LDL Cholesterol <=129 mg/dL 77 -Med reconciliation completed and compliance discussed. - pt to continue present medications. Continue to monitor and follow with PCP HTN, goal below 150/90 BP Readings from Last 3 Encounters: 12/11/23 108/60 10/08/23 128/70 10/01/23 118/60 -Med reconciliation completed and compliance discussed. - pt to continue present medications. Continue to monitor and follow with PCP Chronic systolic heart failure (HCC) Coronary atherosclerosis of autologous bypass graft -Med reconciliation completed and compliance discussed. - pt to continue present medications. 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 - pt to continue present medications. Continue to monitor and follow with PCP Iron deficiency anemia, unspecified iron deficiency anemia type -Med reconciliation completed and compliance discussed. - pt to continue present medications. Continue to monitor and follow with PCP Patient has been verbally educated on the need or importance of Dexa Scan and Immunizations: Influenza, Tetanus Patient has received both Influenza and Tetanus vaccines, reconciled into Immunization record. Discussed importance of Covid Vaccine: pt has received the vaccine Yes, Patient has received Covid vaccine and boosters. Reconciled most recent to Immunization record. Would patient like to schedule next AWV visit? Yes Patient states for the past month he has had increasing anginal symptoms. Usual angina is 2-3 timesper week. Now it is 5-6 times per week. Chest tightness with radiation to Rt Arm. [...] notified. Asked to send note to Cardiology. Charlotte Rice RN Fall Risk Plan of Care Documentation: - Current medications reconciled Patient encouraged to: - Exercise - Provide education materials for Core strengthening - Utilize assistive/adaptive devices - Provide education materials - Avoid multifocal lenses when walking - Avoid hazards in home - Provide education materials - Maintain a regular toileting schedule Charlotte Rice RN 12/11/2023 Urinary Incontinence Plan of Care Documentation: (This education is for all patients over 65 regardless of symptoms) Current medications reconciled. Patient encouraged to: Practice kegal exercises Provide education materials Use the restroom every 2 hours throughout the day Limit caffeine, alcohol, spicy foods and acidic foods Keep a bladder diary Limit fluid intake 3-4 hours before bed Lose weight Prevent constipation Take fluid pills at a time when you can get to the bathroom quickly Control sugar better if diabetic Limit fluid intake to 60 oz. per day Wear support stockings (TEDs)if you have edema Charlotte Rice RN 12/11/2023 documented in this encounter Miscellaneous Notes * Pt Handout (not on AVS) - Charlotte Rice RN - 12/11/2023 12:07 PM EST [id number] Fall Prevention Falls often take place due to slipping, tripping, or losing your balance. Millions of people fall every year and injure themselves. Among older adults in the [place] falls are the most common cause of traumatic brain injuries. Every 20 minutes, an older adult dies from a fall. Here are ways to reduceyour risk of falling again: Think about your fall. Was there anything that caused your fall that can be fixed, removed, or replaced? Make your home safe by keeping walkways clear of objects you may trip over, such as electrical cords. Use nonslip pads under rugs. Don't use area rugs or small throw rugs. Use nonslip mats in bathtubs and showers. Hang grab rails by the toilet and inside and outside the shower. Install handrails and lights on staircases. The handrails should be on both sides of the stairs. Use night lights. Don't walk in poorly lit areas. Don't stand on chairs or wobbly ladders. Use care when reaching overhead or looking up. This position can cause a loss of balance. Be sure your shoes fit well, are in good condition, and have nonslip bottoms. Wear shoes both inside and outside of your home. Don't go barefoot or wear slippers. Be cautious when going up and down stairs, curbs, and when walking on uneven sidewalks. If your balance is poor, consider using a cane or walker. Talk with your healthcare provider about having a balance assessment. If your fall was related to alcohol use, stop or limit alcohol intake. Ask your provider for help if you think you may overuse alcohol and can't stop. If your fall was related to use of sleeping medicines, talk with your provider about this. You may need to reduce your dosage at bedtime if you wake up during the night to go to the bathroom. To reduce the need for nighttime bathroom trips: o Don't drink fluids for several hours before going to bed o Empty your bladder before going to bed o Men can keep a urinal at the bedside Stay as active as you can. Balance, flexibility, strength, and endurance all come from exercise.They all play a role in preventing falls. Ask your provider which types of activity are right for you. Try to do some type of exercise every day. Get your eyes checked once a year or more often if your vision changes If you have pets, know where they are before you stand up or walk so you don't trip over them. Go over all your medicines with a pharmacist or other provider. This is to see if any of them could make you more likely to fall. Have this type of medicine review at least once every year. If your provider advises a new medicine, ask if the side effects will affect your balance. Don't move quickly from one position to another. For instance, don't stand up fast from sitting.This can cause dizziness and may lead to a fall. Sit down when putting on pants, socks, and shoes. This will make you less likely to lose your balance and fall. Always let your provider know if you have fallen since your last visit. Contact your provider right away if you're having balance problems or falling more often. Last Reviewed Date: 11/19/202119994723-2688 [employer]. All rights reserved. This information is not intended as a substitute for professional medical care. Always follow your healthcare professional's instructions. * Pt Handout (not on AVS) - Charlotte Rice RN - 12/11/2023 12:07 PM EST Images from the original note were not included. [id number] 5 Steps for Eating Healthier Changing the way you eat can improve your health. It can lower your cholesterol and blood pressure,and help you stay at a healthy weight. Your diet doesn?t have to be bland and boring to be healthy.Just watch your calories and follow these steps: Step 1. Eat fewer unhealthy fats Choose more fish and lean meats instead of fatty cuts of meat. Skip butter and lard, and use less margarine. Replace these with healthier fats, such as olive, canola, or avocado oils. Pass on foods that have palm, coconut, or partially hydrogenated oils. Eat fewer high-fat dairy foods like cheese, ice cream, and whole milk. Get a heart-healthy cookbook and try some new recipes. Step 2. Go light on salt Keep the saltshaker off the table. Limit high-salt ingredients, such as soy sauce, bouillon, and garlic salt. Instead of adding salt when cooking, season your food with herbs, spices, and other flavorings. Try lemon, garlic, onion, vinegar, or salt-free herb seasonings. Limit convenience foods, such as boxed or canned foods and restaurant food. Read food labels and choose lower-sodium options. Buy fresh, frozen, or canned vegetables that don't have added salt. Step 3. Limit sugar Pause before you add sugars to pancakes, cereal, coffee, or tea. This includes white and brown table sugar, syrup, honey, and molasses. Cut your usual amount by half. Swap out sugar-filled soda and other drinks. Buy sugar-free or low-calorie beverages. Remember, water is always the best choice. Try adding lemon juice to water for extra flavor. Read labels and choose foods with less added sugar. Keep in mind that dairy foods and foods withfruit will have some natural sugar. Cut the sugar in recipes by 1/3 to 1/2. Boost the flavor with extracts like almond, vanilla, or orange. Or add spices such as cinnamon or nutmeg. Step 4. Eat more fiber Eat fresh fruits and vegetables every day. Boost your diet with whole grains. Go for oats, whole-grain rice, and bran. Add beans and lentils to your meals. Drink more water to match your fiber increase to help prevent constipation. Step 5. Pay attention to serving sizes Remember that a serving size is a standard measurement. It will let you track the amount of fat,calories, and other nutrients in the food you eat. Read the Nutrition Facts label on packaged foods to learn their serving sizes. Use serving sizes to assess how much food you put on your plate. Pay attention to your portions.How many servings are you eating? Keep in mind that your needs may change if you?re more active or less active, or if you have other factors that change your calorie needs. Use your hand to help you measure serving sizes. For example: o 1 teaspoon: This is about the size of the first joint of your thumb. o 1 tablespoon: This is about the size of the first 2 joints of your thumb. o 1 ounce: This is about what you can fit in your cupped hand. o 2 to 3 ounces: This is about the size of the palm of your hand. o cup: This is also about what you can fit in your cupped hand. o 1 cup: This is about the size of your fist. Last Reviewed Date: 10/19/202219991451-9641 [employer]. All rights reserved. This information is not intended as a substitute for professional medical care. Always follow your healthcare professional's instructions. documented in this encounter Plan of Treatment Upcoming Encounters Date Type Department Care Team (Late st Contact Info) Description 12/19/2023 10:15 AM EST Office Visit Orthopaedics [facility] [address] [address] Darrel Lovell PA-C [address] [address] 01/21/2024 2:00 PM EST Office Visit [facility] [address] [phone] Kenny Osborn MD [address], [place] [id number] 04/15/2024 1:30 PM EDT Office Visit Cardiology, [facility] [address] [place] [address] Julisa Hernandez CRNP [address] [place] [address] 12/17/2024 11:00 AM EST Nurse Only Ancillary Department, [place] [address] [place] [address] [place], Nurse Annual [facility] [address] [place] [address] Health Maintenance Due Date Last Done Comments [...] D LEVEL ONCE IN A LIFETIME-USE SMARTSET# [id number] Completed 05/25/2021, 11/20/2018, 07/13/2017, Additional history exists [...] Not on filedocumented as of this encounter Visit Diagnoses Diagnosis Routine general medical examination at a health care facility- Primary Risk and functional assessment Screening for unspecified condition Prediabetes Other abnormal glucose Dyslipidemia, goal LDL below 70 Other and unspecified hyperlipidemia HTN, goal below 150/90 Chronic systolic heart failure (HCC) Chronic systolic heart failure Coronary atherosclerosis of autologous bypass graft Coronary atherosclerosis of unspecified type of bypass graft 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 No Full Code 06/08/2010 12:41 AM 06/08/2010 9:05 AM This order reflects the patients wishes and were consensually agreed upon. Question Answer Comments Discussion of Advance Directives occurred with: Patient Does the patient have a Living Will? No Does the patient have Health Care Power of Ore Miner? No Healthcare Agents on File Name Relationship Healthcare Agent Relationship Communication Hawa wheeler Spouse First Alternate Health Care Agent Care Teams Senior Adults Director Relationship Specialty Start Date End Date Kenny Osborn MD [address] [facility] [place] [address] PCP - General 08/29/05 documented as of this encounter
--- OUTSIDE RECORDS SUMMARY | 2023-12-17 21:37 | External Medical Summary | Summary of Care ---
Author Name Unknown Organization [facility] Address [address] [place] [address] Phone [phone] Care Team Providers Care Physicist Nuclear Name Role Phone Kenny Osborn MD Primary Care Provider [phone] Reason for Visit * Reason Onset Date Comments Advice 12/11/2023 Encounter Details Date Type Department Care Team (Late st Contact Info) Description 12/11/2023 Telephone [facility] [address] [place] [address] Kenny Osborn MD [address] [place] [address] Advice Allergies Active Allergy Reactions [...] amlodipine, metoprolol Will continue to monitor by [facility] nursing staff. Iron deficiency anemia 04/03/2022 Old [place] (myocardial infarction) 01/13/2020 Dissection of right iliac [...] mRNA, LNP-s, No Pre serve, 2-Dose Series (Lobster) 11/16/2021,02/14/2021,01/18/2021 COVID-19, LNP-s, No Preserve , Jv-sucrose, Ages 12+ (Pfizer) 04/26/2022 COVID-19, MRNA-LNP, 23-24, P F, 50 MCG/0.5 mL, 12 YRS AND ABOVE, IM (MODERNA-Spikevax) 08/27/2023 Covid-19, Mrna, Lnp-s, Pf, B ivalent, 30 Mcg, IM, 12 yrs and above (Lobster) 08/22/2022 Diptheria/Tetanus (Adult) 12/10/1998 Hepatitis A Vaccine [...] any new Rx sent to [facility] and a call back to confirm. ROMEL [...] ED for evaluation. * Telephone Encounter - Charlotet Rice RN - 12/11/2023 2:05 PM EST [...] 12/19/2023 10:15 AM EST Office Visit Orthopaedics [facility] [address] [place] [address] Darrel Lovell PA-C [address] [place] [address] 01/21/2024 2:00 PM EST Office Visit [facility], [place] [address] [phone] [facility] [address] [facility] [address] 04/15/2024 1:30 PM EDT Office Visit Cardiology, [facility] [address] [place] [address] Julisa Hernandez CRNP [address] [place] [address] 12/17/2024 11:00 AM EST Nurse Only [facility]illary Department, [place] [address] [facility] [address] [place], Nurse [facility] [address] [facility] [address] Health Maintenance Due Date Last Done Comments [...] D LEVEL ONCE IN A LIFETIME-USE SMARTSET# [id number] Completed 05/25/2021, 11/20/2018, 07/13/2017, Additional history exists [...] Documents on File Type Date Recorded Patient Pump Installer Expl anation POLST 01/29/2023 [place] [facility] Latest Code Status on [...] the patient have Health Care Power of Lead Scientist? No Full Code 06/08/2010 12:41 AM 06/08/2010 9:05 AM Thi s order reflects the patients wishes and were consensually agreed upon. Question Answer Comments Discussion of Advance Directives occurred with: Patient Does the patient have a Living Will? No Does the patient have Health Care Power of Lead Scientist? No Healthcare Agents on File Name Relationship Healthcare Agent Relationship Communication Hawa wheeler Spouse First Alternate Health Care Agent Care Teams Physicist Nuclear Relationship Specialty Start Date End Date Kenny Osborn MD [address] [facility] [place] [phone] PCP - General 08/29/05 documented as of this encounter
--- OUTSIDE RECORDS SUMMARY | 2023-12-17 21:37 | External Medical Summary | Summary of Care ---
Author Name Unknown Organization [facility] Address [address] [place] [address] Phone [phone] Care Team Providers Care Locator Specialist Name Role Phone Kenny Osborn MD Primary Care Provider Reason for Visit * Reason Onset Date Comments Advice 12/11/2023 Encounter Details Date Type Department Care Team (Late st Contact Info) Description 12/11/2023 Telephone [facility] [address] [place] [address] Kenny Osborn MD [address] [place] [address] Advice Allergies Active Allergy Reactions [...] amlodipine, metoprolol Will continue to monitor by [facility] nursing staff. 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 [...] mRNA, LNP-s, No Pre serve, 2-Dose Series ([employer]) 11/16/2021,02/14/2021,01/18/2021 COVID-19, LNP-s, No Preserve , Jv-sucrose, Ages 12+ (Pfizer) 04/26/2022 COVID-19, MRNA-LNP, 23-24, P F, 50 MCG/0.5 mL, 12 YRS AND ABOVE, IM (MODERNA-Spikevax) 08/27/2023 Covid-19, Mrna, Lnp-s, Pf, B ivalent, 30 Mcg, IM, 12 yrs and above ([employer]) 08/22/2022 Pneumococcal Conjugate Vacc, 13 Valent (Prevnar) [...] 12/19/2023 10:15 AM EST Office Visit Orthopaedics [facility] [address] [facility] [place] [address] Darrel Lovell PA-C [address] [place] [address] 01/21/2024 2:00 PM EST Office Visit [facility], [place] [address] [facility] [phone] Kenny Osborn MD [address] [facility] [address] 04/15/2024 1:30 PM EDT Office Visit Cardiology, [facility] [address] [facility] [place] [address] Julisa Hernandez CRNP [address] [place] [address] 12/17/2024 11:00 AM EST Nurse Only Ancillary Department, [place] [address] [facility] [address] [place], Nurse [facility] [address] [facility] [address] Health Maintenance Due Date Last Done Comments [...] D LEVEL ONCE IN A LIFETIME-USE SMARTSET# [id number] Completed 05/25/2021, 11/20/2018, 07/13/2017, Additional history exists [...] Documents on File Type Date Recorded Patient Dog Food Dough Mixer Expl anation POLST 01/29/2023 [place] [facility] FOR LIFE-SUSTAINING TREATMENT Latest Code [...] the patient have Health Care Power of Senior Interactive Producer? No Full Code 06/08/2010 12:41 AM 06/08/2010 9:05 AM This order reflects the patients wishes and were consensually agreed upon. Question Answer Comments Discussion of Advance Directives occurred with: Patient Does the patient have a Living Will? No Does the patient have Health Care Power of Senior Interactive Producer? No Healthcare Agents on File Name Relationship Healthcare Agent Relationship Communication Hawa wheeler Spouse First Alternate Health Care Agent Care Teams Locator Specialist Relationship Specialty Start Date End Date Kenny Osborn MD [address] [place] [address] PCP - General 08/29/05 documented as of this encounter
--- OUTSIDE RECORDS SUMMARY | 2023-12-17 21:37 | External Medical Summary | Summary of Care ---
Author Name Unknown Organization [facility] Address [address] [place] [address] Phone [phone] Care Team Providers Care Call Or Contact Centre Coach Name Role Phone Kenny Osborn MD Primary Care Provider [phone] Reason for Visit * Reason Onset Date Comments Forms Request 12/03/2023 Encounter Details Date Type Department Care Team (Late st Contact Info) Description 12/03/2023 Telephone [facility] [address] [place] [address] Kenny Osborn MD [address] [place] [address] Forms Request Allergies Active Allergy Reactions Criticality Noted Date [...] amlodipine, metoprolol Will continue to monitor by [facility] nursing staff. Iron deficiency anemia 04/03/2022 [place] (myocardial infarction) 01/13/2020 Dissection of right iliac [...] mRNA, LNP-s, No Pre serve, 2-Dose Series ([employer]) 11/16/2021,02/14/2021,01/18/2021 COVID-19, LNP-s, No Preserve , Jv-sucrose, Ages 12+ ([employer]) 04/26/2022 COVID-19, MRNA-LNP, 23-24, P F, 50 [...] encounter Miscellaneous Notes * Telephone Encounter - Kenny Osborn MD - 12/11/2023 5:42 PM EST Completed form. Just needs faxed. * Telephone Encounter - Delmis Jason OSA - 12/11/2023 2:21 PM EST Pt's son called to F/U on the [facility] paperwork. Please contact Matt when paperwork is complete at [phone] * Telephone Encounter - Chata Myers LPN - 12/03/2023 3:19 PM EST Fmla paper work for his son due to taking care of father. Paper work in 's mail slot documented in this encounter Plan of Treatment Upcoming Encounters Date Type Department Care Team (Late st Contact Info) Description 12/19/2023 10:15 AM EST Office Visit Orthopaedics [facility] [address] [facility] [place] [address] Darrel Lovell PA-C [address] [place] [address] 01/21/2024 2:00 PM EST Office Visit Family Practice, [place] [address] [facility] [phone] Kenny Osborn MD [address] [facility] [address] 04/15/2024 1:30 PM EDT Office Visit Cardiology, [facility] [address] [facility] [place] [address] Julisa Hernandez CRNP [address] [facility] [place] [address] 12/17/2024 11:00 AM EST Nurse Only Ancillary Department, [place] [address] [facility] [address] [place], Nurse Annual Well[facility] [address] [facility] [address] Health Maintenance Due Date Last Done Comments [...] D LEVEL ONCE IN A LIFETIME-USE SMARTSET# [id number] Completed 05/25/2021, 11/20/2018, 07/13/2017, Additional history exists [...] Documents on File Type Date Recorded Patient Program Management Specialist Expl anation POLST 01/29/2023 [place] OR [facility] FOR LIFE-SUSTAINING TREATMENT Latest Code [...] the patient have Health Care Power of Rehabilitation Team Lead? No Full Code 06/08/2010 12:41 AM 06/08/2010 9:05 AM This order reflects the patients wishes and were consensually agreed upon. Question Answer Comments Discussion of Advance Directives occurred with: Patient Does the patient have a Living Will? No Does the patient have Health Care Power of Rehabilitation Team Lead? No Healthcare Agents on File Name Relationship Healthcare Agent Relationship Communication Hawa wheeler Spouse First Alternate Health Care Agent Care Teams Call Or Contact Centre Coach Relationship Specialty Start Date End Date Kenny Osborn MD [address] [place] [address] PCP - General 08/29/05 documented as of this encounter
--- OUTSIDE RECORDS SUMMARY | 2023-12-17 21:37 | External Medical Summary | Summary of Care ---
Author Name Unknown Organization [facility] Address [address] [place] [address] Phone [phone] Care Team Providers Care Press Tender Star Signal Name Role Phone Kenny Osborn MD Primary Care Provider [phone] Reason for Visit * Reason Onset Date Comments Advice 12/11/2023 Encounter Details Date Type Department Care Team (Late st Contact Info) Description 12/11/2023 Telephone [facility] [address] [place] [address] Kenny Osborn MD [address] [place] [address] Advice Allergies Active Allergy Reactions [...] amlodipine, metoprolol Will continue to monitor by [facility] nursing staff. 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 [...] mRNA, LNP-s, No Pre serve, 2-Dose Series ([employer]) 11/16/2021,02/14/2021,01/18/2021 COVID-19, LNP-s, No Preserve , Jv-sucrose, Ages 12+ (Pfizer) 04/26/2022 COVID-19, MRNA-LNP, 23-24, P F, 50 MCG/0.5 mL, 12 YRS AND ABOVE, IM (MODERNA-Spikevax) 08/27/2023 Covid-19, Mrna, Lnp-s, Pf, B ivalent, 30 Mcg, IM, 12 yrs and above ([employer]) 08/22/2022 Diptheria/Tetanus (Adult) 12/10/1998 Hepatitis A Vaccine [...] 12/19/2023 10:15 AM EST Office Visit [facility]opaed[facility] [place] [address] Darrel Lovell PA-C [address] [facility] [place] [address] 01/21/2024 2:00 PM EST Office Visit [facility] [address] [facility] [phone] Kenny Osborn MD [address] [facility] [address] 04/15/2024 1:30 PM EDT Office Visit Cardiology, [facility] [address] [facility] [place] [address] Julisa Hernandez CRNP [address] [place] [address] 12/17/2024 11:00 AM EST Nurse Only Ancillary Department, [place] [address] [facility] [address] [place], Nurse Annual Wellness [address] [place] [address] Health Maintenance Due Date Last Done Comments [...] D LEVEL ONCE IN A LIFETIME-USE SMARTSET# [id number] Completed 05/25/2021, 11/20/2018, 07/13/2017, Additional history exists [...] Documents on File Type Date Recorded Patient Cigarette Examiner Expl anation POLST 01/29/2023 [place] [facility] FOR LIFE-SUSTAINING TREATMENT Latest Code Status [...] the patient have Health Care Power of Engineer Automated Equipment? No Full Code 06/08/2010 12:41 AM 06/08/2010 9:05 AM This order reflects the patients wishes and were consensually agreed upon. Question Answer Comments Discussion of Advance Directives occurred with: Patient Does the patient have a Living Will? No Does the patient have Health Care Power of Engineer Automated Equipment? No Healthcare Agents on File Name Relationship Healthcare Agent Relationship Communication Hawa wheeler Spouse First Alternate Health Care Agent Care Teams Press Tender Star Signal Relationship Specialty Start Date End Date Kenny Osborn MD [address] [place] [address] PCP - General 08/29/05 documented as of this encounter
--- OUTSIDE RECORDS SUMMARY | 2023-12-17 21:38 | External Medical Summary | Summary of Care ---
Author Name Unknown Organization [facility] Address [address] [facility] [place] [address] Phone [phone] Care Team Providers Care Tipple Boss Name Role Phone Kenny Osborn MD Primary Care Provider Encounter Details Date Type Department Care Team [...] amlodipine, metoprolol Will continue to monitor by [facility] nursing staff. Iron deficiency anemia 04/03/[address] (myocardial infarction) 01/13/2020 Dissection of right iliac [...] mRNA, LNP-s, No Pre serve, 2-Dose Series ([employer]) 11/16/2021,02/14/2021,01/18/2021 COVID-19, LNP-s, No Preserve , Jv-sucrose, Ages 12+ ([employer]) 04/26/2022 Covid-19, Mrna, Lnp-s, Pf, B ivalent, 30 Mcg, IM, 12 yrs and above ([employer]) 08/22/2022 Pneumococcal Conjugate Vacc, 13 Valent (Prevnar) [...] 1:00 PM EST Nurse Only Ancillary Department, [address] [address] [place], Nurse Annual Wellness [address] [place] [address] 12/19/2023 10:15 AM EST Office Visit Orthopaedics [facility] [address] [place] [address] Darrel Lovell PA-C [address] [place] [address] 04/15/2024 1:30 PM EDT Office Visit Cardiology, [facility] [address] [place] [address] Julisa Hernandez CRNP [address] [place] [address] Health Maintenance Due Date Last Done Comments [...] D LEVEL ONCE IN A LIFETIME-USE SMARTSET# [id number] Completed 05/25/2021, 11/20/2018, 07/13/2017, Additional history exists [...] Documents on File Type Date Recorded Patient Metallographer Expl anation POLST 01/29/2023 [place] [facility] FOR LIFE-SUSTAINING TREATMENT Latest Code [...] the patient have Health Care Power of Plastic Fixture Builder? No Full Code 06/08/2010 12:41 AM 06/08/2010 9:05 AM This order reflects the patients wishes and were consensually agreed upon. Question Answer Comments Discussion of Advance Directives occurred with: Patient Does the patient have a Living Will? No Does the patient have Health Care Power of Plastic Fixture Builder? No Healthcare Agents on File Name Relationship Healthcare Agent Relationship Communication Hawa wheeler Spouse First Alternate Health Care Agent Care Teams Tipple Boss Relationship Specialty Start Date End Date Kenny Osborn MD [address] [place] [address] PCP - General 08/29/05 documented as of this encounter
--- OUTSIDE RECORDS SUMMARY | 2023-12-17 21:38 | External Medical Summary | Summary of Care ---
Author Name Unknown Organization [facility] Address [address] [facility] [place] [address] Phone [phone] Care Team Providers Care Wood Milling Machine Tender Name Role Phone Kenny Osborn MD Primary Care Provider [phone] Reason for Visit * Reason Comments NEW PATIENT right acromial end o f right clavicle Encounter Details Date Type Department Care Team (Late st Contact Info) Description 11/21/2023 2:00 PM EST Office Visit Orthopaedics [facility] [address] [place] [address] Darrel Lovell PA-C [address] [place] [address] Closed displaced fracture of acromial end of right clavicle, initial encounter* Allergies Active Allergy Reactions Criticality Noted Date Comments Diltiazem 06/21/1999 RASH Hydantoins Seizure High 04/18/2022 Phenytoin Sodium 01/19/1999 SEIZURES documented as of this encounter (statuses as of 11/21/2023) Medications Medication Sig Dispensed Refills Start Date [...] continuous . 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 90 Tablet 11 10/08/2023 Active documented as of this encounter (statuses as of 11/21/2023) Active Problems Problem Noted Date Diagnosed Date [...] as of this encounter (statuses as of 11/21/2023) Resolved Problems Problem Noted Date Diagnosed Date [...] as of this encounter (statuses as of 11/21/2023) Immunizations Name Administration Dates Next Due COVID-19 mRNA, LNP-s, No Pre serve, 2-Dose Series ([employer]) 11/16/2021,02/14/2021,01/18/2021 COVID-19, LNP-s, No Preserve , Jv-sucrose, Ages 12+ ([employer]) 04/26/2022 Covid-19, Mrna, Lnp-s, Pf, B ivalent, [...] No 04/03/2022 documented as of this encounter Progress Notes * Darrel Lovell PA-C - 11/21/2023 2:18 PM EST Established patient initially treated on our walk-in urgent care schedule for right shoulder pain status post fall that occurred on 10/31/2023. Was diagnosed with a distal clavicle fracture. Was provided with a sling. States that the sling is uncomfortable while sleeping but he wears it all other times. Denies any new injury or fall. States his symptoms have been gradually improving. Denies numbness or tingling. Will need new updated x-rays today. Complete review systems negative General: alert and oriented x3 male, no acute distress, appears currently stated age, pleasant, well nourished Skin: Right upper extremity including shoulder and clavicle does reveal ecchymotic change in his age-appropriate and actually radiates into the anterior chest and torso. The right shoulder and clavicle does not reveal any erythema, abrasion, laceration, skin breakdown otherwise Neurovascular: Right upper extremity reveals distal pulses +2, capillary refill is under 2 seconds,good sensation light touch, +5 dairy department manager strength, axillary median ulnar radial nerve assess fully intact Musculoskeletal: Exam of the right upper extremity including clavicle and shoulder reveals discomfort at the injury site of the distal clavicle when approaching 90 of both forward flexion and abduction. Carefully, the patient is able to reveal external rotation and internal rotation. There is tenderness at the distal clavicle. There is no abnormality or gross malalignment of the AC joint. Sternoclavicular joint is nontender. X-rays of the patient's right reveals unchanged in alignment distal clavicle fracture. AC joint is preserved without advanced degeneration. The glenohumeral joint does not reveal any superior migration of the humeral head or advanced degenerative changes. Unable to identify any type of obvious cystic change or masses in the bone. Personal interpretation and documentation regarding today's plain film radiographs performed by myself. Impression: 2 weeks status post right distal clavicle fracture nondisplaced, stable and improving Plan: Today 's findings were discussed with the patient. They were educated regarding their diagnosis. Multiple treatment options discussed and agreed upon, including continued use of his sling during ADLs for an additional 3-4 weeks. Avoid any repetitive lifting or use with the right upper extremity. Follow-up at that time for repeat radiographs two views right clavicle. The patient has no otherquestions or concerns. Pleased with today 's care. Call sooner if needed. This chart was completed in part utilizing [employer] Speech Voice Recognition Software. Grammatical errors, random word insertions, prounoun errors, and incomplete sentences are an occasional consequence of this system due to software limitations, ambient noise, and hardware issues. Any formal questions or concerns about the content, text, or information contained within the body of this dictation should be directly addressed to the provider for clarification. documented in this encounter Nursing Notes * Pratima Modi LPN - 11/21/2023 2:03 PM EST New patient right acromial end of right clavicle Patient notes pain with activity. DOI 10/31/2023 Sling nonweightbearing right upper extremity patient does not sleep with sling. Patient denies any PT or injections or surgery. documented in this encounter Plan of Treatment Upcoming Encounters Date Type Department Care Team (Late st Contact Info) Description 12/11/2023 1:00 PM EST Nurse Only Ancillary Department, [place] [address] [facility] [address] [place], Nurse Annual Wellness [address] [place] [facility] [place] [address] 12/19/2023 10:15 AM EST Office Visit Orthopaedics [facility] [address] [place] [address] Darrel Lovell PA-C [address] [place] [address] 04/15/2024 1:30 PM EDT Office Visit Cardiology, [facility] [address] [place] [address] Julisa Hernandez CRNP [address] [place] [address] Pending Results Name Type Priority Associated Diagnoses Date /Time XR SHOULDER, 1 VIEW Medical Imaging Routine Closed displaced fracture of acromial end of right clavicle, initial encounter 11/21/2023 2:29 PM EST Health Maintenance Due Date Last Done Comments DISCUSS TOBACCO CESSATION (REFER TO SMARTSET #[id number]) 1937 *BISPHONATE OR OTHER ACCEPTABLE MEDICATION NEEDED FOR OSTEOPOROSIS (REFER TO SMARTSET #1146) 12/09/2017 DXA Scan 11/15/2022 11/15/2020, 0801/2016, 05/18/2014, Additional history exists DTaP,Tdap,and Td Vaccines [...] D LEVEL ONCE IN A LIFETIME-USE SMARTSET# [id number] Completed 05/25/2021, 11/20/2018, 07/13/2017, Additional history exists [...] as of this encounter Visit Diagnoses Diagnosis Closed displaced fracture of acromial end of right clavicle, initial encounter- Primary documented in this encounter Advance Directives Documents on File Type Date Recorded Patient Wood Heel Fitter Machine Expl anation POLST 01/29/2023 [place] OR [facility] FOR LIFE-SUSTAINING TREATMENT Latest Code Status on [...] the patient have Health Care Power of Reinforced Concrete Inspector? No Full Code 06/08/2010 12:41 AM 06/08/2010 9:05 AM This order reflects the patients wishes and were consensually agreed upon. Question Answer Comments Discussion of Advance Directives occurred with: Patient Does the patient have a Living Will? No Does the patient have Health Care Power of Reinforced Concrete Inspector? No Healthcare Agents on File Name Relationship Healthcare Agent Relationship Communication Hawa wheeler Spouse First Alternate Health Care Agent Care Teams Wood Milling Machine Tender Relationship Specialty Start Date End Date Kenny Osborn MD [address] [place] [address] PCP - General 08/29/05 documented as of this encounter
--- OUTSIDE RECORDS SUMMARY | 2023-12-17 21:38 | External Medical Summary | Summary of Care ---
Author Name Unknown Organization [facility] Address [address] [facility] [place] [address] Phone [phone] Care Team Providers Care Analog Ic Design Engineer Name Role Phone Kenny Osborn MD Primary Care Provider [phone] Encounter Details Date Type Department Care Team (Late st Contact Info) Description 11/10/2023 Patient Reported Data Patient Survey Ortho [facility] Allergies Active Allergy Reactions Criticality Noted Date Comments Diltiazem 06/21/1999 RASH Hydantoins Seizure High 04/18/2022 Phenytoin Sodium 01/19/1999 SEIZURES documented as of this encounter (statuses as of 11/10/2023) Medications Medication Sig Dispensed Refills Start Date [...] as of this encounter (statuses as of 11/10/2023) Active Problems Problem Noted Date Diagnosed Date Prediabetes 03/27/2023 Hypertensive heart disease w ith chronic systolic congestive heart failure 03/13/2023 Chronic systolic heart failure 05/01/2022 Last Assessment & Plan: Euvolemic. Checking wt daily Continue furosemide 20mg daily. BP 102/62--asymptomatic. Continues amlodipine, metoprolol Will continue to monitor by [facility] nursing staff. Iron deficiency anemia 04/03/2022 [...] as of this encounter (statuses as of 11/10/2023) Resolved Problems Problem Noted Date Diagnosed Date [...] as of this encounter (statuses as of 11/10/2023) Immunizations Name Administration Dates Next Due COVID-19 mRNA, LNP-s, No Pre serve, 2-Dose Series ([employer]) 11/16/2021,02/14/2021,01/18/2021 COVID-19, LNP-s, No Preserve , Jv-sucrose, Ages 12+ ([employer]) 04/26/2022 Covid-19, Mrna, Lnp-s, Pf, B ivalent, 30 Mcg, IM, 12 yrs and above ([employer]) 08/22/2022 Pneumococcal Conjugate Vacc, 13 Valent (Prevnar) [...] 11/21/2023 2:00 PM EST Office Visit Orthopaedics [facility] [address] [place] [address] Darrel Lovell PA-C [address] [place] [address] 12/11/2023 1:00 PM EST Nurse Only Ancillary Department, [place] [address] [place] [address] [place], Nurse Annual Wellness [address] [place] [address] 04/15/2024 1:30 PM EDT Office Visit Cardiology, [facility] [address] [place] [address] Julisa Hernandez CRNP [address] [place] [address] Health Maintenance Due Date Last Done Comments [...] D LEVEL ONCE IN A LIFETIME-USE SMARTSET# [id number] Completed 05/25/2021, 11/20/2018, 07/13/2017, Additional history exists [...] Documents on File Type Date Recorded Patient Shop Laborer Expl anation POLST 01/29/2023 [place] OR [facility] FOR LIFE-SUSTAINING TREATMENT Latest Code Status [...] the patient have Health Care Power of Pari Mutual Ticket Checker? No Full Code 06/08/2010 12:41 AM 06/08/2010 9:05 AM This order reflects the patients wishes and were consensually agreed upon. Question Answer Comments Discussion of Advance Directives occurred with: Patient Does the patient have a Living Will? No Does the patient have Health Care Power of Pari Mutual Ticket Checker? No Healthcare Agents on File Name Relationship Healthcare Agent Relationship Communication Hawa wheeler Spouse First Alternate Health Care Agent Care Teams Analog Ic Design Engineer Relationship Specialty Start Date End Date Kenny Osborn MD [address] [place] [address] PCP - General 08/29/05 documented as of this encounter
--- OUTSIDE RECORDS SUMMARY | 2023-12-17 21:38 | External Medical Summary | Summary of Care ---
Author Name Unknown Organization [facility] Address [address] [facility] [place] [address] Phone [phone] Care Team Providers Care Director Supply Name Role Phone Kenny Osborn MD Primary Care Provider [phone] Encounter Details Date Type Department Care Team [...] metoprolol Will continue to monitor by [facility] nursing staff. 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 [...] mRNA, LNP-s, No Pre serve, 2-Dose Series ([employer]) 11/16/2021,02/14/2021,01/18/2021 COVID-19, LNP-s, No Preserve , Jv-sucrose, Ages 12+ ([employer]) 04/26/2022 Covid-19, Mrna, Lnp-s, Pf, B ivalent, 30 Mcg, IM, 12 yrs and above ([employer]) 08/22/2022 Pneumococcal Conjugate Vacc, 13 Valent (Prevnar) [...] 11/21/2023 2:00 PM EST Office Visit Orthopaedics [facility] [address] [place] [address] Darrel Lovell PA-C [address] [place] [address] 12/11/2023 1:00 PM EST Nurse Only Ancillary Department, [place] [address] [place] [address] [place], Nurse Annual Wellness [address] [place] [address] 04/15/2024 1:30 PM EDT Office Visit Cardiology, [facility] [address] [place] [address] Julisa Hernandez CRNP [address] [place] [address] Health Maintenance Due Date Last Done Comments [...] D LEVEL ONCE IN A LIFETIME-USE SMARTSET# [id number] Completed 05/25/2021, 11/20/2018, 07/13/2017, Additional history exists [...] Documents on File Type Date Recorded Patient Sound Mixer Expl anation POLST 01/29/2023 [place] OR [facility] FOR LIFE-SUSTAINING TREATMENT Latest Code [...] the patient have Health Care Power of Stone Lathe Operator? No Full Code 06/08/2010 12:41 AM 06/08/2010 9:05 AM This order reflects the patients wishes and were consensually agreed upon. Question Answer Comments Discussion of Advance Directives occurred with: Patient Does the patient have a Living Will? No Does the patient have Health Care Power of Stone Lathe Operator? No Healthcare Agents on File Name Relationship Healthcare Agent Relationship Communication Hawa wheeler Spouse First Alternate Health Care Agent Care Teams Director Supply Relationship Specialty Start Date End Date Kenny Osborn MD [address] [place] [address] PCP - General 08/29/05 documented as of this encounter
--- OUTSIDE RECORDS SUMMARY | 2023-12-17 21:38 | External Medical Summary | Summary of Care ---
Author Name Unknown Organization [facility] Address [address] [facility] [place] [address] Phone [phone] Care Team Providers Care Certified Veterinary Technician Name Role Phone Kenny Osborn MD Primary [...] metoprolol Will continue to monitor by [facility] nursing staff. 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 [...] mRNA, LNP-s, No Pre serve, 2-Dose Series ([employer]) 11/16/2021,02/14/2021,01/18/2021 COVID-19, LNP-s, No Preserve , Jv-sucrose, Ages 12+ ([employer]) 04/26/2022 Covid-19, Mrna, Lnp-s, Pf, B ivalent, 30 Mcg, IM, 12 yrs and above ([employer]) 08/22/2022 Pneumococcal Conjugate Vacc, 13 Valent (Prevnar) [...] 11/21/2023 2:00 PM EST Office Visit Orthopaedics [facility] [address] [place] [address] Darrel Lovell PA-C [address] [place] [address] 12/11/2023 1:00 PM EST Nurse Only Ancillary Department, [place] [address] [place] [address] [place], Nurse Annual Wellness [address] [place] [address] 04/15/2024 1:30 PM EDT Office Visit Cardiology, [facility] [address] [place] [address] Julisa Hernandez CRNP [address] [place] [address] Health Maintenance Due Date Last Done Comments [...] D LEVEL ONCE IN A LIFETIME-USE SMARTSET# [id number] Completed 05/25/2021, 11/20/2018, 07/13/2017, Additional history exists [...] Documents on File Type Date Recorded Patient Validation Specialist Expl anation POLST 01/29/2023 [place] [facility] FOR LIFE-SUSTAINING TREATMENT Latest Code Status [...] the patient have Health Care Power of Dip Guider Stoves? No Full Code 06/08/2010 12:41 AM 06/08/2010 9:05 AM This order reflects the patients wishes and were consensually agreed upon. Question Answer Comments Discussion of Advance Directives occurred with: Patient Does the patient have a Living Will? No Does the patient have Health Care Power of Dip Guider Stoves? No Healthcare Agents on File Name Relationship Healthcare Agent Relationship Communication Hawa wheeler Spouse First Alternate Health Care Agent Care Teams Certified Veterinary Technician Relationship Specialty Start Date End Date Kenny Osborn MD [address] [place] [address] PCP - General 08/29/05 documented as of this encounter
--- OUTSIDE RECORDS SUMMARY | 2023-12-17 21:38 | External Medical Summary | Summary of Care ---
Author Name Unknown Organization [facility] Address [address] [facility] [place] [address] Phone [phone] Care Team Providers Care Phone Representative Name Role Phone Kenny Osborn MD Primary Care Provider [phone] Encounter Details Date Type Department Care Team [...] amlodipine, metoprolol Will continue to monitor by [facility] nursing staff. 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 [...] mRNA, LNP-s, No Pre serve, 2-Dose Series ([employer]) 11/16/2021,02/14/2021,01/18/2021 COVID-19, LNP-s, No Preserve , Jv-sucrose, Ages 12+ ([employer]) 04/26/2022 Covid-19, Mrna, Lnp-s, Pf, B ivalent, 30 Mcg, IM, 12 yrs and above ([employer]) 08/22/2022 Pneumococcal Conjugate Vacc, 13 Valent (Prevnar) [...] 1:00 PM EST Nurse Only Ancillary Department, [address] [address] [place], Nurse Annual Wellness [address] [place] [address] 12/19/2023 10:15 AM EST Office Visit Orthopaedics [facility] [address] [place] [address] Darrel Lovell PA-C [address] [place] [address] 04/15/2024 1:30 PM EDT Office Visit Cardiology, [facility] [address] [place] [address] Julisa Hernandez CRNP [address] [place] [address] Health Maintenance Due Date Last Done Comments [...] D LEVEL ONCE IN A LIFETIME-USE SMARTSET# [id number] Completed 05/25/2021, 11/20/2018, 07/13/2017, Additional history exists [...] Documents on File Type Date Recorded Patient Nuclear Equipment Sales Engineer Expl anation POLST 01/29/2023 [place] [facility] FOR LIFE-SUSTAINING TREATMENT Latest Code [...] the patient have Health Care Power of Edge Brusher? No Full Code 06/08/2010 12:41 AM 06/08/2010 9:05 AM This order reflects the patients wishes and were consensually agreed upon. Question Answer Comments Discussion of Advance Directives occurred with: Patient Does the patient have a Living Will? No Does the patient have Health Care Power of Edge Brusher? No Healthcare Agents on File Name Relationship Healthcare Agent Relationship Communication Hawa wheeler Spouse First Alternate Health Care Agent Care Teams Phone Representative Relationship Specialty Start Date End Date Kenny Osborn MD [address] [place] [address] PCP - General 08/29/05 documented as of this encounter
--- OUTSIDE RECORDS SUMMARY | 2023-12-17 21:38 | External Medical Summary | Summary of Care ---
Author Name Unknown Organization [facility] Address [address] [facility] [place] [address] Phone [phone] Care Team Providers Care Automatic Print Developer Name Role Phone Kenny Osborn MD Primary Care Provider [phone] Encounter Details Date Type Department Care Team [...] amlodipine, metoprolol Will continue to monitor by [facility] nursing staff. 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 [...] mRNA, LNP-s, No Pre serve, 2-Dose Series ([employer]) 11/16/2021,02/14/2021,01/18/2021 COVID-19, LNP-s, No Preserve , Jv-sucrose, Ages 12+ ([employer]) 04/26/2022 Covid-19, Mrna, Lnp-s, Pf, B ivalent, 30 Mcg, IM, 12 yrs and above ([employer]) 08/22/2022 Pneumococcal Conjugate Vacc, 13 Valent (Prevnar) [...] 1:00 PM EST Nurse Only Ancillary Department, [address] [address] [place], Nurse Annual Wellness [address] [place] [address] 12/19/2023 10:15 AM EST Office Visit Orthopaedics [facility] [address] [place] [address] Darrel Lovell PA-C [address] [place] [address] 04/15/2024 1:30 PM EDT Office Visit Cardiology, [facility] [address] [place] [address] Julisa Hernandez CRNP [address] [place] [address] Health Maintenance Due Date Last Done Comments [...] D LEVEL ONCE IN A LIFETIME-USE SMARTSET# [id number] Completed 05/25/2021, 11/20/2018, 07/13/2017, Additional history exists [...] Documents on File Type Date Recorded Patient Rooter Operator Expl anation POLST 01/29/2023 [place] [facility] FOR LIFE-SUSTAINING TREATMENT Latest Code [...] the patient have Health Care Power of Catalogue Illustrator? No Full Code 06/08/2010 12:41 AM 06/08/2010 9:05 AM This order reflects the patients wishes and were consensually agreed upon. Question Answer Comments Discussion of Advance Directives occurred with: Patient Does the patient have a Living Will? No Does the patient have Health Care Power of Catalogue Illustrator? No Healthcare Agents on File Name Relationship Healthcare Agent Relationship Communication Hawa wheeler Spouse First Alternate Health Care Agent Care Teams Automatic Print Developer Relationship Specialty Start Date End Date Kenny Osborn MD [address] [place] [address] PCP - General 08/29/05 documented as of this encounter
--- OUTSIDE RECORDS SUMMARY | 2023-12-17 21:38 | External Medical Summary | Summary of Care ---
Author Name Unknown Organization [facility] Address [address] [facility] [place] [address] Phone [phone] Care Team Providers Care Hands Assembler Name Role Phone Kenny Osborn MD Primary Care Provider [phone] Encounter Details Date Type Department Care Team [...] amlodipine, metoprolol Will continue to monitor by [facility] nursing staff. 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 [...] mRNA, LNP-s, No Pre serve, 2-Dose Series ([employer]) 11/16/2021,02/14/2021,01/18/2021 COVID-19, LNP-s, No Preserve , Jv-sucrose, Ages 12+ ([employer]) 04/26/2022 Covid-19, Mrna, Lnp-s, Pf, B ivalent, 30 Mcg, IM, 12 yrs and above ([employer]) 08/22/2022 Pneumococcal Conjugate Vacc, 13 Valent (Prevnar) [...] 1:00 PM EST Nurse Only Ancillary Department, [address] [address] [place], Nurse Annual Wellness [address] [place] [address] 12/19/2023 10:15 AM EST Office Visit Orthopaedics [facility] [address] [place] [address] Darrel Lovell PA-C [address] [place] [address] 04/15/2024 1:30 PM EDT Office Visit Cardiology, [facility] [address] [place] [address] Julisa Hernandez CRNP [address] [place] [address] Health Maintenance Due Date Last Done Comments [...] D LEVEL ONCE IN A LIFETIME-USE SMARTSET# [id number] Completed 05/25/2021, 11/20/2018, 07/13/2017, Additional history exists [...] Documents on File Type Date Recorded Patient Power Generation Plant Operator Expl anation POLST 01/29/2023 [place] OR [facility] FOR [...] the patient have Health Care Power of Coil Rewind Machine Operator? No Full Code 06/08/2010 12:41 AM 06/08/2010 9:05 AM This order reflects the patients wishes and were consensually agreed upon. Question Answer Comments Discussion of Advance Directives occurred with: Patient Does the patient have a Living Will? No Does the patient have Health Care Power of Coil Rewind Machine Operator? No Healthcare Agents on File Name Relationship Healthcare Agent Relationship Communication Hawa wheeler Spouse First Alternate Health Care Agent Care Teams Hands Assembler Relationship Specialty Start Date End Date Kenny Osborn MD [address] [place] [address] PCP - General 08/29/05 documented as of this encounter
--- OUTSIDE RECORDS SUMMARY | 2023-12-17 21:38 | External Medical Summary | Summary of Care ---
Author Name Unknown Organization [facility] Address [address] [facility] [place] [place] [address] Phone [phone] Care Team Providers Care Supervisor Locomotive Name Role Phone Kenny Osborn MD Primary Care Provider [phone] Encounter Details Date Type Department Care Team [...] amlodipine, metoprolol Will continue to monitor by [facility] nursing staff. Iron deficiency anemia 04/03/2022 [...] mRNA, LNP-s, No Pre serve, 2-Dose Series ([employer]) 11/16/2021,02/14/2021,01/18/2021 COVID-19, LNP-s, No Preserve , Jv-sucrose, Ages 12+ ([employer]) 04/26/2022 Covid-19, Mrna, Lnp-s, Pf, B ivalent, 30 Mcg, IM, 12 yrs and above ([employer]) 08/22/2022 Pneumococcal Conjugate Vacc, 13 Valent (Prevnar) [...] 11/21/2023 2:00 PM EST Office Visit Orthopaedics [facility] [address] [place] [address] Darrel Lovell PA-C [address] [place] [address] 12/11/2023 1:00 PM EST Nurse Only Ancillary Department, [place] [address] [place] [address] [place], Nurse Annual Wellness [address] [place] [address] 04/15/2024 1:30 PM EDT Office Visit Cardiology, [facility] [address] [place] [address] Julisa Hernandez CRNP [address] [place] [address] Health Maintenance Due Date Last Done Comments [...] D LEVEL ONCE IN A LIFETIME-USE SMARTSET# [id number] Completed 05/25/2021, 11/20/2018, 07/13/2017, Additional history exists [...] Documents on File Type Date Recorded Patient Digital Experience Manager Expl anation POLST 01/29/2023 [place] OR [facility] FOR LIFE-SUSTAINING TREATMENT Latest Code Status [...] patient have Health Care Power of Senior Compliance Analyst? No Full Code 06/08/2010 12:41 AM 06/08/2010 9:05 AM This order reflects the patients wishes and were consensually agreed upon. Question Answer Comments Discussion of Advance Directives occurred with: Patient Does the patient have a Living Will? No Does the patient have Health Care Power of Senior Compliance Analyst? No Healthcare Agents on File Name Relationship Healthcare Agent Relationship Communication Hawa wheeler Spouse First Alternate Health Care Agent Care Teams Supervisor Locomotive Relationship Specialty Start Date End Date Kenny Osborn MD [address] [place] [address] PCP - General 08/29/05 documented as of this encounter
--- OUTSIDE RECORDS SUMMARY | 2023-12-17 21:38 | External Medical Summary | Summary of Care ---
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 180 Tablet 3 3 Active Arexvy 120 MCG/0.5ML Intramuscular Suspension Reconstituted (RSVPreF3 Vac Recomb Adjuvanted)Indicat ions:Need for RSV vaccination Inject intramuscularly in to large muscle like the deltoid. 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 Checking wt daily Continue furosemide 20mg daily. BP 102/62--asymptomatic. Continues amlodipine, metoprolol Will continue to monitor by [facility] nursing staff. Iron deficiency anemia [...] mRNA, LNP-s, No Pre serve, 2-Dose Series ([employer]) 11/16/2021,02/14/2021,01/18/2021 COVID-19, LNP-s, No Preserve , Jv-sucrose, Ages 12+ ([employer]) 04/26/2022 Covid-19, Mrna, Lnp-s, Pf, B ivalent, [...] encounter Miscellaneous Notes * Telephone Encounter - Leticia Osborn MD - 11/21/2023 8:15 PM ESTSigned Prescriptions: Disp Refills carBAMazepine 200 MG Oral Tablet (Tegretol)180 Ta*3 Si tablet by mouth 2 times dailyAuthorizing Provider: LETICIA OSBORN documented in this encounter Plan of Treatment Upcoming Encounters Date Type Department Care Team (Late st Contact Info) Description 12/11/2023 1:00 PM EST Nurse Only Ancillary Department, [place] [address] [place] [address] [place], Nurse Annual Wellness [address] [facility] [place] [address] 12/19/2023 10:15 AM EST Office Visit Orthopaedics [facility] [address] [place] [address] Darrel Lovell PA-C [address] [place] [address] 04/15/2024 1:30 PM EDT Office Visit Cardiology, [facility] [address] [place] [address] Julisa Hernandez CRNP [address] [place] [address] Health Maintenance Due Date Last Done Comments DISCUSS TOBACCO CESSATION (REFER TO SMARTSET #[id number]) 1937 *BISPHONATE OR OTHER ACCEPTABLE MEDICATION NEEDED FOR OSTEOPOROSIS (REFER TO SMARTSET #1146) 12/09/2017 DXA Scan 11/15/2022 11/15/2020, 01/2016, 05/18/2014, Additional history exists DTaP,Tdap,and Td [...] D LEVEL ONCE IN A LIFETIME-USE SMARTSET# [id number] Completed 05/25/2021, 11/20/2018, 07/13/2017, Additional history exists [...] as of this encounter Visit Diagnoses Diagnosis 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 No Full Code 06/08/2010 12:41 AM 06/08/2010 9:05 AM This order reflects the patients wishes and were consensually agreed upon. Question Answer Comments Discussion of Advance Directives occurred with: Patient Does the patient have a Living Will? No Does the patient have Health Care Power of Rating Specialist? No Healthcare Agents on File Name Relationship Healthcare Agent Relationship Communication Hawa wheeler Spouse First Alternate Health Care Agent Care Teams Net Applications Developer Relationship Specialty Start Date End Date Leticia Osborn MD [address] [place] [address] PCP - General 08/29/05 documented as of this encounter
--- OUTSIDE RECORDS SUMMARY | 2023-12-17 21:39 | External Medical Summary | Summary of Care ---
Author Name Unknown Organization [facility] Address [address] [facility] [place] [address] Phone [phone] Care Team Providers Care Advertising Executive Name Role Phone Kenny Osborn MD Primary Care Provider [phone] Encounter Details Date Type Department Care Team [...] amlodipine, metoprolol Will continue to monitor by [facility] nursing staff. Iron deficiency anemia 04/03/2022 Old [place] (myocardial infarction) 01/13/2020 Dissection of right iliac [...] mRNA, LNP-s, No Pre serve, 2-Dose Series ([employer]) 11/16/2021,02/14/2021,01/18/2021 COVID-19, LNP-s, No Preserve , Jv-sucrose, Ages 12+ ([employer]) 04/26/2022 Covid-19, Mrna, Lnp-s, Pf, B ivalent, 30 Mcg, IM, 12 yrs and above ([employer]) 08/22/2022 Pneumococcal Conjugate Vacc, 13 Valent [...] 11/21/2023 2:00 PM EST Office Visit Orthopaedics [facility] [address] [place] [address] Darrel Lovell PA-C [address] [place] [address] 12/11/2023 1:00 PM EST Nurse Only Ancillary Department, [place] [address] [place] [address] [place], Nurse Annual Wellness [address] [place] [address] 04/15/2024 1:30 PM EDT Office Visit Cardiology, [facility] [address] [place] [address] Julisa Hernandez CRNP [address] [place] [address] Health Maintenance Due Date Last Done Comments [...] D LEVEL ONCE IN A LIFETIME-USE SMARTSET# [id number] Completed 05/25/2021, 11/20/2018, 07/13/2017, Additional history exists [...] Documents on File Type Date Recorded Patient Floor Tech Expl anation POLST 01/29/2023 [place] OR [facility] FOR LIFE-SUSTAINING TREATMENT Latest Code Status [...] the patient have Health Care Power of Licensed Chemical Spray Technician? No Full Code 06/08/2010 12:41 AM 06/08/2010 9:05 AM This order reflects the patients wishes and were consensually agreed upon. Question Answer Comments Discussion of Advance Directives occurred with: Patient Does the patient have a Living Will? No Does the patient have Health Care Power of Licensed Chemical Spray Technician? No Healthcare Agents on File Name Relationship Healthcare Agent Relationship Communication Hawa wheeler Spouse First Alternate Health Care Agent Care Teams Advertising Executive Relationship Specialty Start Date End Date Kenny Osborn MD [address] [place] [address] PCP - General 08/29/05 documented as of this encounter
--- OUTSIDE RECORDS SUMMARY | 2023-12-17 21:39 | External Medical Summary | Summary of Care ---
Author Name Unknown Organization [facility] Address [address] [facility] [place] [address] Phone [phone] Care Team Providers Care Intellectual Property Legal Assistant Name Role Phone Kenny Osborn MD Primary Care Provider [phone] Reason for Visit * Reason Comments Follow Up Encounter Details Date Type Department Care Team (Late st Contact Info) Description 10/08/2023 10:30 AM EST Office Visit Cardiology, [facility] [address] [place] [address] Julisa Hernandez CRNP [address] [place] [address] Palpitations*; HTN, goal below 150/90 Allergies Active Allergy Reactions Criticality Noted Date Comments Diltiazem 06/21/1999 RASH Hydantoins Seizure High 04/18/2022 Phenytoin Sodium 01/19/1999 SEIZURES documented as of this encounter (statuses as of 10/08/2023) Medications Medication Sig Dispensed Refills Start Date End Date Status MULTIVITAMIN TABS OR one pill each day 100 0 01/20/20 03 Active Ferrous Sulfate (IRON) 28 MG Tablet Take 1 Tablet by mouth in the morning. 0 Active Diclofenac Sodium 1 % gelIndications:Ge neralized osteoarthritis Place 2 g topically on the skin 4 times a day as needed for Pain. 100 g 5 04/21/20 Active Aspirin 81 MG Oral Tablet Chewable Take by mouth 1 Tablet in the morning. with food.. 100 Tablet 5 04/14/20 Active oxygen IN GAS Administer into nostril 2 L/min(Oxygen) continuous . 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 90 Tablet 3 04/02/20 23 Active Rosuvastatin Calcium 40 MG Oral Tablet (Crestor)Indicati ons:ASCVD (arteriosclerotic cardiovascular disease),Aortocor onary bypass status,Dyslipidem ia, goal LDL below 70 Take 1 Tablet by mouth in the morning. 90 Tablet 3 04/17/20 Active Nitroglycerin 0.4 MG Sublingual Tablet Sublingual (Nitrostat) Place 1 Tablet under the tongue every 5 minutes as needed for Pain, Chest. 180 Tablet 3 06/28/20 23 Active Arexvy 120 MCG/0.5ML Intramuscular Suspension Reconstituted (RSVPreF3 Vac Recomb Adjuvanted)Indica tions:Need for RSV vaccination Inject intramuscularly in to large muscle like the deltoid. 1 Each 0 09/03/20 Active Additional Information Patient not taking.Reported on 10/08/2023 Isosorbide Mononitrate ER 120 MG Oral Tablet Extended Release 24 Hour (Imdur)Indication s:HTN, goal below 140/90 TAKE 1 TABLET BY MOUTH IN THE MORNING 90 Tablet 3 09/10/20 23 Active Spironolactone 25 MG Oral Tablet (Aldactone)Indica tions:HTN, goal below 140/90,Aortocoron dread bypass status TAKE 1 TABLET BY MOUTH EVERY MORNING 90 Tablet 3 09/24/20 23 Active Ezetimibe 10 MG Oral Tablet (Zetia)Indication s:Dyslipidemia, goal LDL below 70 TAKE 1 TABLET BY MOUTH EVERY DAY 90 Tablet 3 09/24/20 23 Active Furosemide 20 MG Oral Tablet (Lasix)Indication s:Chronic systolic heart failure (HCC),HTN, goal below 140/90 TAKE 1 TABLET BY MOUTH EVERY MORNING 90 Tablet 1 10/04/20 23 Active amLODIPine Besylate 5 MG Oral Tablet (Norvasc)Indicati ons:ASCVD (arteriosclerotic cardiovascular disease),Aortocor onary bypass status,HTN, goal below 140/90 Take 1 Tablet by mouth in the morning and 1 Tablet before bedtime. 180 Tablet 3 10/04/20 23 Active Metoprolol Tartrate 50 MG Oral Tablet (Lopressor)Indica tions:HTN, goal below 150/90,Palpitatio ns Take 1 Tablet by mouth in the morning and 1 Tablet at noon and 1 Tablet in the evening. 90 Tablet 11 10/08/20 23 Active Metoprolol Tartrate 50 MG Oral Tablet (Lopressor) Take 1 Tablet by mouth in the morning and 1 Tablet at noon and 1 Tablet in the evening. 60 Tablet 5 08/20/20 23 023 Discontinued(Re fill) Molnupiravir 200 MG Oral CapsuleIndication s:COVID-19 virus infection Take 4 Capsules by mouth in the morning and 4 Capsules before bedtime. 40 Capsule 0 09/01/20 23 023 Discontinued documented as of this encounter (statuses as of 10/08/2023) Active Problems Problem Noted Date Diagnosed Date Prediabetes 03/27/2023 Hypertensive heart disease w ith chronic systolic congestive heart failure 03/13/2023 Chronic systolic heart failure 05/01/2022 Last Assessment & Plan: Euvolemic. Checking wt daily Continue furosemide 20mg daily. BP 102/62--asymptomatic. Continues amlodipine, metoprolol Will continue to monitor by [facility] nursing staff. Iron deficiency anemia 04/03/2022 Old ID (myocardial infarction) 01/13/2020 Dissection of right iliac [...] as of this encounter (statuses as of 10/08/2023) Resolved Problems Problem Noted Date Diagnosed Date [...] as of this encounter (statuses as of 10/08/2023) Immunizations Name Administration Dates Next Due COVID-19 mRNA, LNP-s, No Pre serve, 2-Dose Series ([employer]) 11/16/2021,02/14/2021,01/18/2021 COVID-19, LNP-s, No Preserve , Jv-sucrose, Ages 12+ (Pfizer) 04/26/2022 Covid-19, Mrna, Lnp-s, Pf, B ivalent, 30 Mcg, IM, 12 yrs and above (Pfizer) 08/22/2022 Pneumococcal Conjugate Vacc, 13 Valent (Prevnar) 04/20/2015 Pneumococcal Polysaccharide PPV23 (Pneumovax) 03/18/2009 SEASONAL INFLUENZA, PF, 6 M & Above, IM , (FLULAVAL or FLUZONE) 07/22/2019,08/22/2018,08/14/2017 Seasonal Influenza, Quadriva lent Hd (Fluzone [...] Sign Reading Time Taken Comments Blood Pressure 128/70 10/08/2023 10:30 AM EST Pulse 76 10/08/2023 10:30 AM EST Temperature - - Respiratory Rate 14 10/08/2023 10:30 AM EST Oxygen Saturation - - Inhaled Oxygen Concentration - - Weight 62.1 kg (137 lb) 10/08/2023 10:30 AM EST Height - - Body Mass Index 24.27 01/18/2023 10:16 AM EST documented in this encounter Functional [...] as of this encounter Progress Notes * Julisa Hernandez CRNP - 10/08/2023 10:30 AM EST 10/08/2023 Cardiology Follow Up Primary Chief Scientist: Dr. 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 Recommended medical management, 04/04/2022 Class 3 angina pectoris Unable to take Ranexa due to use of Tegretol for seizure disorder. Hypertension Hyperlipidemia Abdominal aortic aneurysm 5.3 cm per duplex 05/2021- following with vascular Fibrotic changes of the lungs HPI: Ayla Wheeler is a 88 year old male presents for close follow up of recent acute concern of palpitations. Was last seen in the office by the undersigned on 07/19/23 with complaints of palpitations, "irregular heart beat", and feeling very "off". An echocardiogram and ZIO monitor were ordered. The Zio monitor revealed an increase in PVC burden, but no other arrhythmias. His metoprolol dosingwas increased from 37.5mg PO TID to 50mg PO TID. Echocardiogram demonstrated normal LVEF, known enlarged left atrium, mild AI, mild to moderate MR, mild TR and a mild elevation in pulmonary pressures. Patient presents today feeling better. He reports resolution of his palpitation or "odd feeling." He is tolerating the increase in beta tushar well. BP is well controlled. Remains at his normal activity level. Discussed with patient his plans to go to his Daughter's for thanksgiving. Reports medication compliance with no untoward effects. REVIEW OF SYSTEMS: See HPI for pertinent positives. All others negative other than those noted in the HPI. CONSTITUTIONAL: No change in weight, No weakness, No fatigue and No fevers, No sweats or chills. PULMONARY: No cough, sputum, or hemoptysis, No wheezing, No shortness or breath and No recent change in breathing. CARDIOVASCULAR: No chest pain, No dyspnea on exertion, No edema, No palpitations and No syncope. GASTROINTESTINAL: No abdominal pain, No change in bowel habits, No significant heartburn, No nausea, No vomiting, No diarrhea, No constipation, No blood in stools or black tarry stools. No dysphagia. HEMATOLOGIC: No abnormal bleeding and No bruising. NEUROLOGICAL: Normal balance, No headaches and No weakness. Review of patient's allergies indicates: Allergen Reactions Hydantoins Seizure Diltiazem RASH Phenytoin Sodium SEIZURES Current Outpatient Medications Medication Sig Dispense Refill [...] the morning. with food.. 100 Tablet 5 oxygen IN GAS Administer into nostril 2 L/min(Oxygen) continuous . 1 Each 0 carBAMazepine 200 MG Oral Tablet (Tegretol) 1 tablet by mouth 2 times daily 180 Tablet 3 Clopidogrel Bisulfate 75 MG Oral Tablet (pLAVix) Take 1 Tablet by mouth in the morning. 90 Tablet 3 Rosuvastatin Calcium 40 MG Oral Tablet (Crestor) Take 1 Tablet by mouth in the morning. 90 Tablet 3 Nitroglycerin 0.4 MG Sublingual Tablet Sublingual (Nitrostat) Place 1 Tablet under the tongue every5 minutes as needed for Pain, Chest. 180 Tablet 3 Isosorbide Mononitrate ER 120 MG [...] Tablet in the evening. 90 Tablet 11 Arexvy 120 MCG/0.5ML Intramuscular Suspension Reconstituted (RSVPreF3 Vac Recomb Adjuvanted) Injectintramuscularly in to large muscle like the deltoid. (Patient not taking: Reported on 10/08/2023) 1Each 0 No current facility-administered medications for this visit. 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 Social History Socioeconomic History Marital status: Spouse name: SHONDA Number of children: 3 Occupational History Occupation: [employer] Employer: [employer] Comment: [employer] - [place] Tobacco Use Smoking status: Some Days Packs/day: 1.00 Years: 28.00 Additional pack years: 0.00 Total pack years: 28.00 Types: Cigarettes, Cigars Last attempt to quit: 04/24/1980 Years since quittin.4 Smokeless tobacco: Never Tobacco comments: 1979 Has occasional cigar Vaping Use Vaping Use: Never used Substance and Sexual Activity Alcohol use: Yes Comment: OCC/ 1 bottle wine per month Drug use: No Sexual activity: Yes Other Topics Concern Service No Caffeine Concern No Occupational Exposure Yes Comment: TRAVEL Sleep Concern No Stress Concern Yes Comment: A LITTLE, BETTER COTROLLED Weight Concern No Special Diet Yes Comment: LO FAT Exercise Yes Comment: BIKE, X 23 ID, WALK 1 1/2 - 2 ID QD Bike Helmet Yes Seat Belt Yes Social History Narrative Exercise: Bicycle/ walks Social Determinants of Health Food Insecurity: No Food Insecurity (12/11/2022) Hunger Vital Sign Worried About Running Out of Food in the Last Year: Never true Ran Out of Food in the Last Year: Never true OBJECTIVE/PHYSICAL EXAMINATION: BP 128/70 | Pulse 76 | Resp 14 | Wt 62.1 kg (137 lb) | BMI 24.27 kg/m | BSA 1.66 m General: No acute distress. A+Ox3. HEENT: Normocephalic. Atraumatic. PERRL. EOMI. Conjunctiva and sclera clear. NECK: No carotid bruits. No JVD. Carotid upstrokes are brisk. Heart: RRR. S1 and S2 noted. No murmur. No rubs or gallops. PMI non displaced. Lungs: Clear to auscultation. No wheezes.No rhonchi. No rales. Abdomen: Normal bowel sounds. Soft. Nontender. No masses or organomegaly. No abdominal bruits. Extremities: No edema. No clubbing or cyanosis. Pulses: radial=2/4, posterior tibial=2/4, dorsalis pedis = 2/4. NEURO: No focal deficits. PSYCH: Appropriate affect and insight. DATA Labs & Imaging Reviewed Below: EKG 07/19/23 Sinus rhythm with 1st degree AV block with occasional Premature ventricular complexes Marked ST abnormality, possible lateral subendocardial injury Abnormal ECG When compared with ECG of 05-JUN-2022 15:17, T wave inversion more evident in Inferior leads T wave inversion now evident in Anterior leads Ventricular Rate: 72 Echo 04/18/2022 at [facility] LVEF 45-50%, anterior lateral wall hypokinetic Left atrium mildly dilated Grade 1 diastolic dysfunction Mild MR Mild TR Mild pulmonary hypertension with PA systolic pressure 55 mmHg Subtle improvement of anterior septal and apical wall motion noted. Cath 04/04/22 at [facility]: Coronary disease - hemodynamically significant [place]vi Vessels -Distal LMCA has 95% stenosis. Proximal LAD has 100% stenosis - Left circumflex has diffuse disease proximally upto 90%. There is competitive flow in the OM1 from LRA bypass - RCA has proximal 99% stenosis. Grafts - ALLEY to RCA is patent however, there is diffuse upto 80% stenosis in the crow rPLA - CHASE to LAD is patent with diffuse 70% crow LAD disease distal to the anastamosis - [id number] has proximal 80% disease in the LRA. Not amenable to PCI (technically) Left femoral artery access with 45 cm destination sheath. S/p Manual hold Echo 04/01/2022 at [facility] LVEF 45-50% with moderate hypokinesis of the mid apical, anterior and anterior septal yun along with the apical cap. Grade 2 diastolic dysfunction Mild aortic sclerosis without stenosis Mild MR Mild TR Echo 02/16/2022 at [facility] LVEF 55-60% Mild hypokinesis of the basal lateral wall Mild TR No evidence of pulmonary hypertension Nuclear stress 10/2021 The combined low intensity exercise/Lexiscan myocardial perfusion imaging study is abnormal with findings of a large sized reversible inferior, inferolateral perfusion defect of moderate to severe intensity. The stress EKG response is abnormal and suggestive of ischemia. Gated SPECT imaging reveals subtle inferolateral hypokinesis. The left ventricular ejection fraction was calculated to be > 70% Compared to the prior study dated 07/13/2017. The EKG response is similar. The perfusion imaging response is similar. Echo at [facility] 10/12/2021 LVEF 50-55% with normal wall motion. Right ventricular systolic function normal Borderline left atrial enlargement Right atrial size is normal Mild MR Trace TR Grade 2 diastolic dysfunction Nuclear stress 06/2017 Gated SPECT imaging reveals normal myocardial thickening and wall motion. The left ventricular ejection fraction was calculated to be 75%. Overall, this pharmacologic nuclear stress test reveals moderate to severe ischemia in the inferiorlateral myocardium. These findings are most consistent with the distribution of the right coronary or left circumflex arteries. ASSESSMENT/PLAN: 88 year old year old male 1. Palpitations -Resolved. Continue Lopressor at 50mg PO TID. - Metoprolol Tartrate 50 MG Oral Tablet (Lopressor); Take 1 Tablet by mouth in the morning and 1 Tablet at noon and 1 Tablet in the evening. Dispense: 90 Tablet; Refill: 11 2. HTN, goal below 150/90 -Well controlled. Continue amlodipine, Lopressor, Imdur, and Spironolactone - Metoprolol Tartrate 50 MG Oral Tablet (Lopressor); Take 1 Tablet by mouth in the morning and 1 Tablet at noon and 1 Tablet in the evening. Dispense: 90 Tablet; Refill: 11 DISPOSITION: Follow up 6 months or if symptoms worsen/fail to improve. All questions were answered to the patients satisfaction. Patient advised to report to ED with any and all emergencies. The patient agrees to the above plan and will call with additional questions or concerns. AYSHA Menendez [facility], [place] [address] I spent a total of 38 minutes on the date of service in preparation, delivery, and documentation ofthe care provided to Ayla Wheeler excluding any time spent in the performance of separately billed services. This chart was completed in part utilizing [employer] Speech Voice Recognition Software. Grammatical errors, random word insertions, pronoun errors, and incomplete sentences are an occasional consequence of this system due to software limitations, ambient noise, and hardware issues. Any formal questions or concerns about the content, text, or information contained within the body of this dictation should be directly addressed to the provider for clarification. documented in this encounter Nursing Notes * Tamanna Brooks LPN - 10/08/2023 10:29 AM EST Examination Room: 7 Name: Ayla Wheeler Date of : 1935 Reason for Visit: Follow up Problems/Concerns: Denies any changes in cardiac health Interim Hosp(s): denies Chest Pain/SOB: Some SOB, but denies worsening MyChart Discussed: ALREADY ACTIVE Patient was instructed to not get up on the exam table until directed and assisted by their provider; patient is to remain seated in the chair/ wheelchair/ exam table for fall prevention and safety reasons. Patient is aware to have assistance to step down off exam table with personnel. documented in this encounter Plan of Treatment Upcoming Encounters Date Type Department Care Team (Late st Contact Info) Description 12/11/2023 1:00 PM EST Nurse Only Ancillary Department, [address] [address] [place], Nurse [facility] [address] [place] [address] 04/15/2024 1:30 PM EDT Office Visit Cardiology, [facility] [address] [place] [address] Julisa Hernandez CRNP [address] [place] [address] Health Maintenance Due Date Last Done Comments DISCUSS TOBACCO CESSATION (REFER TO SMARTSET #[id number]) 1935 *BISPHONATE OR OTHER ACCEPTABLE MEDICATION NEEDED FOR OSTEOPOROSIS (REFER TO SMARTSET #1146) 12/09/2017 DXA Scan 11/15/2022 11/15/2020, 080 01/2016, 05/18/2014, Additional history exists DTaP,Tdap,and Td [...] D LEVEL ONCE IN A LIFETIME-USE SMARTSET# [id number] Completed 05/25/2021, 11/20/2018, 07/13/2017, Additional history exists [...] as of this encounter Visit Diagnoses Diagnosis Palpitations- Primary HTN, goal below 150/90 documented in this encounter Advance Directives Documents on File Type Date Recorded Patient Pool Hall Inspector Expl anation POLST 01/29/2023 [place] [facility] FOR [...] the patient have Health Care Power of Second Vp Hr Assessment? No Full Code 06/08/2010 12:41 AM 06/08/2010 9:05 AM This order reflects the patients wishes and were consensually agreed upon. Question Answer Comments Discussion of Advance Directives occurred with: Patient Does the patient have a Living Will? No Does the patient have Health Care Power of Second Vp Hr Assessment? No Healthcare Agents on File Name Relationship Healthcare Agent Relationship Communication Hawa wheeler Spouse First Alternate Health Care Agent Care Teams Intellectual Property Legal Assistant Relationship Specialty Start Date End Date Kenny Osborn MD [address] [place] [address] PCP - General 08/29/05 documented as of this encounter
--- OUTSIDE RECORDS SUMMARY | 2023-12-17 21:39 | External Medical Summary | Summary of Care ---
Author Name Unknown Organization [facility] Address [address] [facility] [place] [address] Phone [phone] Care Team Providers Care Hand Woodworking Sander Name Role Phone Kenny Osborn MD Primary Care Provider [phone] Encounter Details Date Type Department Care Team (Late st Contact Info) Description 11/03/2023 Patient Reported Data Patient Survey Ortho [facility] Allergies Active Allergy Reactions Criticality Noted Date Comments Diltiazem 06/21/1999 RASH Hydantoins Seizure High 04/18/2022 Phenytoin Sodium 01/19/1999 SEIZURES documented as of this encounter (statuses as of 11/03/2023) Medications Medication Sig Dispensed Refills Start Date [...] as of this encounter (statuses as of 11/03/2023) Active Problems Problem Noted Date Diagnosed Date Prediabetes 03/27/2023 Hypertensive heart disease w ith chronic systolic congestive heart failure 03/13/2023 Chronic systolic heart failure 05/01/2022 Last Assessment & Plan: Euvolemic. Checking wt daily Continue furosemide 20mg daily. BP 102/62--asymptomatic. Continues amlodipine, metoprolol Will continue to monitor by [facility] nursing staff. Iron deficiency anemia 04/03/2022 Old [place] (myocardial infarction) 01/13/2020 Dissection of right iliac [...] as of this encounter (statuses as of 11/03/2023) Resolved Problems Problem Noted Date Diagnosed Date [...] as of this encounter (statuses as of 11/03/2023) Immunizations Name Administration Dates Next Due COVID-19 mRNA, LNP-s, No Pre serve, 2-Dose Series ([employer]) 11/16/2021,02/14/2021,01/18/2021 COVID-19, LNP-s, No Preserve , Jv-sucrose, Ages 12+ ([employer]) 04/26/2022 Covid-19, Mrna, Lnp-s, Pf, B ivalent, 30 Mcg, IM, 12 yrs and above ([employer]) 08/22/2022 Pneumococcal Conjugate Vacc, 13 Valent (Prevnar) [...] 11/21/2023 2:00 PM EST Office Visit Orthopaedics [facility] [address] [place] [address] Darrel Lovell PA-C [address] [place] [address] 12/11/2023 1:00 PM EST Nurse Only Ancillary Department, [place] [address] [place] [address] [place], Nurse [facility] [address] [place] [address] 04/15/2024 1:30 PM EDT Office Visit Cardiology, [facility] [address] [place] [address] Julisa Hernandez CRNP [address] [place] [address] Health Maintenance Due Date Last Done Comments [...] D LEVEL ONCE IN A LIFETIME-USE SMARTSET# [id number] Completed 05/25/2021, 11/20/2018, 07/13/2017, Additional history exists [...] Documents on File Type Date Recorded Patient Third Cook Expl anation POLST 01/29/2023 [place] OR [facility] FOR LIFE-SUSTAINING TREATMENT Latest Code [...] the patient have Health Care Power of Grant Administrator? No Full Code 06/08/2010 12:41 AM 06/08/2010 9:05 AM This order reflects the patients wishes and were consensually agreed upon. Question Answer Comments Discussion of Advance Directives occurred with: Patient Does the patient have a Living Will? No Does the patient have Health Care Power of Grant Administrator? No Healthcare Agents on File Name Relationship Healthcare Agent Relationship Communication Hawa wheeler Spouse First Alternate Health Care Agent Care Teams Hand Woodworking Sander Relationship Specialty Start Date End Date Kenny Osborn MD [address] [place] [address] PCP - General 08/29/05 documented as of this encounter
--- OUTSIDE RECORDS SUMMARY | 2023-12-17 21:39 | External Medical Summary | Summary of Care ---
Author Name Unknown Organization [facility] Address [address] [place] [address] Phone [phone] Care Team Providers Care Call Center Manager Name Role Phone Kenny Osborn MD Primary Care Provider [phone] Reason for Visit * Reason Onset Date Comments Fax Refill 10/04/2023 Encounter Details Date Type Department Care Team (Late st Contact Info) Description 10/04/2023 Telephone Cardiology, [facility] [address] [place] [address] Dipti Mota CRNP [address] [place] [address] Fax Refill Allergies Active Allergy Reactions Criticality Noted Date Comments Diltiazem 06/21/1999 RASH Hydantoins Seizure High 04/18/2022 Phenytoin Sodium 01/19/1999 SEIZURES documented as of this encounter (statuses as of 10/04/2023) Medications Medication Sig Dispensed Refills Start Date [...] needed for Pain. 100 g 5 04/21/20 20 Active Aspirin 81 MG Oral Tablet Chewable Take by mouth 1 Tablet in the morning. with food.. 100 Tablet 5 04/14/20 Active oxygen IN GAS Administer into nostril 2 L/min(Oxygen) continuous . 1 Each 0 06/29/20 22 Active carBAMazepine 200 MG Oral Tablet (Tegretol)Indicat [...] in the morning. 90 Tablet 3 04/17/20 23 Active Nitroglycerin 0.4 MG Sublingual Tablet Sublingual (Nitrostat) Place 1 Tablet under the tongue every 5 minutes as needed for Pain, Chest. 180 Tablet 3 06/28/20 23 Active Metoprolol Tartrate 50 MG Oral Tablet (Lopressor) Take 1 Tablet by mouth in the morning and 1 Tablet at noon and 1 Tablet in the evening. 60 Tablet 5 08/20/20 23 Active Molnupiravir 200 MG Oral CapsuleIndication s:COVID-19 virus infection Take 4 Capsules by mouth in the morning and 4 Capsules before bedtime. 40 Capsule 0 09/01/20 23 Active Arexvy 120 MCG/0.5ML Intramuscular Suspension Reconstituted (RSVPreF3 Vac Recomb Adjuvanted)Indica tions:Need for RSV vaccination Inject intramuscularly in to large muscle like the deltoid. 1 Each 0 09/03/20 23 Active Isosorbide Mononitrate ER 120 MG Oral [...] DAY 90 Tablet 3 09/24/20 23 Active amLODIPine Besylate 5 MG Oral Tablet (Norvasc)Indicati ons:ASCVD (arteriosclerotic cardiovascular disease),Aortocor onary bypass status,HTN, goal below 140/90 Take 1 Tablet by mouth in the morning and 1 Tablet before bedtime. 180 Tablet 3 10/04/20 23 Active amLODIPine Besylate 5 MG Oral Tablet (Norvasc)Indicati ons:ASCVD (arteriosclerotic cardiovascular disease),Aortocor onary bypass status,Dyslipidem ia, goal LDL below 70 Take 1 Tablet (5 mg) by mouth in the morning and 1 Tablet (5 mg) before bedtime. 180 Tablet 3 09/29/20 22 023 Discontinued(Re fill) Furosemide 20 MG Oral Tablet (Lasix)Indication s:Chronic systolic heart failure (HCC),HTN, goal below 140/90 Take 1 Tablet (20 mg) by mouth in the morning. 90 Tablet 3 10/13/20 22 023 Discontinued documented as of this encounter (statuses as of 10/04/2023) Active Problems Problem Noted Date Diagnosed Date Prediabetes 03/27/2023 Hypertensive heart disease w ith chronic systolic congestive heart failure 03/13/2023 Chronic systolic heart failure 05/01/2022 Last Assessment & Plan: Euvolemic. Checking wt daily Continue furosemide 20mg daily. BP 102/62--asymptomatic. Continues amlodipine, metoprolol Will continue to monitor by [facility] nursing staff. Iron deficiency anemia 04/03/2022 Old [place] (myocardial infarction) 01/13/2020 Dissection of right iliac [...] as of this encounter (statuses as of 10/04/2023) Resolved Problems Problem Noted Date Diagnosed Date [...] as of this encounter (statuses as of 10/04/2023) Immunizations Name Administration Dates Next Due COVID-19 mRNA, LNP-s, No Pre serve, 2-Dose Series (Familio) 11/16/2021,02/14/2021,01/18/2021 COVID-19, LNP-s, No Preserve , Jv-sucrose, [...] (15 years old or older) No 04/03/20 22 Cognitive Status Response Date of Assessm ent Because of a physical, menta l, or emotional condition, do you have serious difficulty concentrating, remembering, or making decisions? (5 years old or older) No 04/03/2022 documented as of this encounter Miscellaneous Notes * Telephone Encounter - Tiff Michaels CMA - 10/04/2023 12:53 PM EST Did you pend patient's preferred pharmacy and medication before forwarding?yes Pharmacy: [id number] [id number] [address] [address] [place] Pending Prescriptions: Disp Refills amLODIPine Besylate 5 MG Oral Tablet (Nor*180 Ta*3 Sig: Take 1 Tablet by mouth in the morning and 1 Tablet before bedtime. Last Visit: 07/19/2023 (in office), Visit date not found (telemedicine) Next Visit: 10/08/2023 If no future appointments scheduled, and last appointment is greater than a year ago, please schedule patient for a follow-up appointment Last date the medication was ordered: 09/29/22 Is this request for a controlled substance?No Urine Drug Screen:No results found for this or any previous visit. Patient Phone Numbers Labs: Lab Results Component Value Date/Time CREAT 0.7 01/18/2023 11:16 AM CREAT 0.8 08/02/2020 07:26 AM POTASSIUM 3.7 01/18/2023 11:16 AM POTASSIUM 4.5 08/02/2020 07:26 AM TSH 1.88 10/31/2017 11:12 AM LDLCALC 77 03/19/2023 12:10 PM LDLCALC 90 08/02/2020 07:26 AM LDLDIRECT NOT APPLICABLE 08/02/2020 07:26 AM LDLDIRECT 104 09/12/2004 09:03 AM ALT 21 01/18/2023 11:16 AM ALT 15 08/02/2020 07:26 AM HGBA1C 6.0 (H) 03/19/2023 12:10 PM HGBA1C 5.6 12/10/1998 03:00 PM documented in this encounter Plan of Treatment Upcoming Encounters Date Type Department Care Team (Late st Contact Info) Description 10/08/2023 10:30 AM EST Office Visit Cardiology, [facility] [address] [place] [address] Julisa Hernandez CRNP [address] [facility] [place] [address] 12/11/2023 1:00 PM EST Nurse Only Ancillary Department, [place] [facility] [address] [facility] [place] [address] [place], Nurse Annual Wellness [address] [facility] [place] [address] Health Maintenance Due Date Last Done Comments [...] D LEVEL ONCE IN A LIFETIME-USE SMARTSET# [id number] Completed 05/25/2021, 11/20/2018, 07/13/2017, Additional history exists [...] as of this encounter Visit Diagnoses Diagnosis HTN, goal below 140/90- Primary Unspecified essential hypertension ATHEROSCLEROTIC CORONARY DISEASE Unspecified cardiovascular disease 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 No Full Code 06/08/2010 12:41 AM 06/08/2010 9:05 AM This order reflects the patients wishes and were consensually agreed upon. Question Answer Comments Discussion of Advance Directives occurred with: Patient Does the patient have a Living Will? No Does the patient have Health Care Power of Environmental Journalist? No Healthcare Agents on File Name Relationship Healthcare Agent Relationship Communication Hawa wheeler Spouse First Alternate Health Care Agent Care Teams Call Center Manager Relationship Specialty Start Date End Date Kenny Osborn MD [address] [place] [address] PCP - General 08/29/05 documented as of this encounter
--- OUTSIDE RECORDS SUMMARY | 2023-12-17 21:39 | External Medical Summary | Summary of Care ---
Author Name Unknown Organization [facility] Address [address] [facility] [place] [address] Phone [phone] Care Team Providers Care Certified Ophthalmic Surgical Assistant Name Role Phone Kenny Osborn MD Primary Care Provider [phone] Encounter Details Date Type Department Care Team [...] amlodipine, metoprolol Will continue to monitor by [facility] nursing staff. Iron deficiency anemia 04/03/2022 [...] mRNA, LNP-s, No Pre serve, 2-Dose Series (DocOnYou) 11/16/2021,02/14/2021,01/18/2021 COVID-19, LNP-s, No Preserve , Jv-sucrose, Ages 12+ (DocOnYou) 04/26/2022 Covid-19, Mrna, Lnp-s, Pf, B ivalent, 30 Mcg, IM, 12 yrs and above (DocOnYou) 08/22/2022 Pneumococcal Conjugate Vacc, 13 Valent (Prevnar) [...] 11/21/2023 2:00 PM EST Office Visit Orthopaedics [facility] [address] [place] [address] Darrel Lovell PA-C [address] [place] [address] 12/11/2023 1:00 PM EST Nurse Only Ancillary Department, [place] [address] [place] [address] [place], Nurse Annual Wellness [address] [place] [address] 04/15/2024 1:30 PM EDT Office Visit Cardiology, [facility] [address] [place] [address] Julisa Hernandez CRNP [address] [place] [address] Health Maintenance Due Date Last Done Comments [...] D LEVEL ONCE IN A LIFETIME-USE SMARTSET# [id number] Completed 05/25/2021, 11/20/2018, 07/13/2017, Additional history exists [...] Documents on File Type Date Recorded Patient Washtub Worker Expl anation POLST 01/29/2023 [place] FOR LIFE-SUSTAINING TREATMENT Latest Code [...] the patient have Health Care Power of Immigration Officer? No Full Code 06/08/2010 12:41 AM 06/08/2010 9:05 AM This order reflects the patients wishes and were consensually agreed upon. Question Answer Comments Discussion of Advance Directives occurred with: Patient Does the patient have a Living Will? No Does the patient have Health Care Power of Immigration Officer? No Healthcare Agents on File Name Relationship Healthcare Agent Relationship Communication Hawa wheeler Spouse First Alternate Health Care Agent Care Teams Certified Ophthalmic Surgical Assistant Relationship Specialty Start Date End Date Kenny Osborn MD [address] [place] [address] PCP - General 08/29/05 documented as of this encounter
--- OUTSIDE RECORDS SUMMARY | 2023-12-17 21:39 | External Medical Summary | Summary of Care ---
Author Name Unknown Organization [facility] Address [address] [place] [address] Phone [phone] Care Team Providers Care Biophysics Professor Name Role Phone Kenny Osborn MD Primary Care Provider [phone] Reason for Visit * Reason Onset Date Comments Order Request 10/30/2023 Encounter Details Date Type Department Care Team (Late st Contact Info) Description 10/30/2023 Telephone [facility] [address] [place] [address] Kenny Osborn MD [address] [place] [address] Order Request Allergies Active Allergy Reactions Criticality Noted Date Comments Diltiazem 06/21/1999 RASH Hydantoins Seizure High 04/18/2022 Phenytoin Sodium 01/19/1999 SEIZURES documented as of this encounter (statuses as of 10/30/2023) Medications Medication Sig Dispensed Refills Start Date [...] as of this encounter (statuses as of 10/30/2023) Active Problems Problem Noted Date Diagnosed Date Prediabetes 03/27/2023 Hypertensive heart disease w ith chronic systolic congestive heart failure 03/13/2023 Chronic systolic heart failure 05/01/2022 Last Assessment & Plan: Euvolemic. Checking wt daily Continue furosemide 20mg daily. BP 102/62--asymptomatic. Continues amlodipine, metoprolol Will continue to monitor by [facility] nursing staff. Iron deficiency anemia 04/03/2022 Old [place] (myocardial infarction) 01/13/2020 Dissection of right iliac [...] as of this encounter (statuses as of 10/30/2023) Resolved Problems Problem Noted Date Diagnosed Date [...] as of this encounter (statuses as of 10/30/2023) Immunizations Name Administration Dates Next Due COVID-19 mRNA, LNP-s, No Pre serve, 2-Dose Series (TapZen) 11/16/2021,02/14/2021,01/18/2021 COVID-19, LNP-s, No Preserve , Jv-sucrose, Ages 12+ (TapZen) 04/26/2022 Covid-19, Mrna, Lnp-s, Pf, B ivalent, [...] Telephone Encounter - Kenny Osborn MD - 10/30/2023 3:52 PM EST Notify Pt: I have ordered xray of shoulder but he may want to see sports med to have shoulder injected with Cortisone. Especially given no trauma. Let me know if he wants referral. * Telephone Encounter - Cynthia Majano LPN - 10/30/2023 3:47 PM EST See MYG request for right shoulder X-ray * Telephone Encounter - Mili Guthrie OSA - 10/30/2023 2:42 PM EST Patient called back and gave an alternate number to call [phone], his phone number does not always receive signal * Telephone Encounter - Ifrah Brumfield OSA - 10/30/2023 2:19 PM EST An order was requested for this patient. Name of Requesting Provider: patient Order Requested: xray of right shoulder Diagnosis/Reason for Request: pain in right shoulder, no trauma. What location AND department does the patient wish to have their order completed at? [place] Fax Number, if applicable: n/a Call Back Number: [phone] If the caller is not a current patient, please advise the patient to call their current PCP to havethe order's prior to being seen in our office. The patient was informed that our providers would not order anything (medication, labs, etc.) prior to being seen. documented in this encounter Plan of Treatment Upcoming Encounters Date Type Department Care Team (Late st Contact Info) Description 12/11/2023 1:00 PM EST Nurse Only Ancillary Department, [place] [address] [place] [address] [place], Nurse Annual Wellness [address] [place] [address] 04/15/2024 1:30 PM EDT Office Visit Cardiology, [facility] [address] [facility] [place] [address] Julisa Hernandez CRNP [address] [place] [address] Scheduled Orders Name Type Priority Associated Diagnoses Orde r Schedule XR SHOULDER, 2 OR MORE VIEWS Medical Imaging Routine Acute pain of right shoulder Expected: 10/30/2023, Expires: 11/30/2023 Health Maintenance Due Date Last Done Comments [...] D LEVEL ONCE IN A LIFETIME-USE SMARTSET# [id number] Completed 05/25/2021, 11/20/2018, 07/13/2017, Additional history exists [...] as of this encounter Visit Diagnoses Diagnosis Acute pain of right shoulder- Primary documented in this encounter Advance Directives Documents on File Type Date Recorded Patient Supervisor Blood Expl anation POLST 01/29/2023 [place] OR [facility] FOR LIFE-SUSTAINING TREATMENT Latest [...] the patient have Health Care Power of Supervisor Fusing Room? No Full Code 06/08/2010 12:41 AM 06/08/2010 9:05 AM This order reflects the patients wishes and were consensually agreed upon. Question Answer Comments Discussion of Advance Directives occurred with: Patient Does the patient have a Living Will? No Does the patient have Health Care Power of Supervisor Fusing Room? No Healthcare Agents on File Name Relationship Healthcare Agent Relationship Communication Hawa wheeler Spouse First Alternate Health Care Agent Care Teams Biophysics Professor Relationship Specialty Start Date End Date Kenny Osborn MD [address] [place] [address] PCP - General 08/29/05 documented as of this encounter
--- OUTSIDE RECORDS SUMMARY | 2023-12-17 21:39 | External Medical Summary | Summary of Care ---
Author Name Unknown Organization [facility] Address [address] [place] [address] Phone [phone] Care Team Providers Care Software Security Architect Name Role Phone Kenny Osborn MD Primary Care Provider [phone] Reason for Visit * Reason Onset Date Comments Order Request 10/30/2023 Encounter Details Date Type Department Care Team (Late st Contact Info) Description 10/30/2023 Telephone [facility] [address] [place] [address] Kenny Osborn MD [address] [place] [address] Order Request Allergies Active Allergy Reactions Criticality Noted Date Comments Diltiazem 06/21/1999 RASH Hydantoins Seizure High 04/18/2022 Phenytoin Sodium 01/19/1999 SEIZURES documented as of this encounter (statuses as of 10/31/2023) Medications Medication Sig Dispensed Refills Start Date [...] as of this encounter (statuses as of 10/31/2023) Active Problems Problem Noted Date Diagnosed Date Prediabetes 03/27/2023 Hypertensive heart disease w ith chronic systolic congestive heart failure 03/13/2023 Chronic systolic heart failure 05/01/2022 Last Assessment & Plan: Euvolemic. Checking wt daily Continue furosemide 20mg daily. BP 102/62--asymptomatic. Continues amlodipine, metoprolol Will continue to monitor by [facility] nursing staff. Iron deficiency anemia 04/03/2022 Old [place] (myocardial infarction) 01/13/2020 Dissection of right iliac [...] as of this encounter (statuses as of 10/31/2023) Resolved Problems Problem Noted Date Diagnosed Date [...] as of this encounter (statuses as of 10/31/2023) Immunizations Name Administration Dates Next Due COVID-19 mRNA, LNP-s, No Pre serve, 2-Dose Series ([place]) 11/16/2021,02/14/2021,01/18/2021 COVID-19, LNP-s, No Preserve , Jv-sucrose, Ages 12+ ([place]) 04/26/2022 Covid-19, Mrna, Lnp-s, Pf, B ivalent, 30 Mcg, IM, 12 yrs and above (Pfizer) 08/22/2022 Diptheria/Tetanus (Adult) 12/10/1998 Hepatitis A Vaccine 06/21/1999,12/10/1998 Hepatitis B Vaccine 06/21/1999,01/19/1999,1998 Pneumococcal Conjugate Vacc, 13 Valent (Prevnar) 04/20/2015 Pneumococcal Polysaccharide PPV23 (Pneumovax) 03/18/2009,12/05/2001 Seasonal Influenza, PF, 6 M & above, IM , (FluLaval or Fluzone) 07/22/2019,08/22/2018,08/14/2017 Seasonal Influenza, Quadriva lent Hd (Fluzone Hd) 08/31/2022,08/11/2021 Seasonal Influenza, Quadriva lent, No Preserve, IM 08/10/2016 08/10/2017 Seasonal Influenza, Split, I IV3, With Preserve, Inj 07/28/2015,07/23/2014,09/30/2013,11/0 06/2012,08/07/2011,08/08/2010,08/16/20 09,10/05/2008,09/11/2007,09/20/2006,1 ,01/10/2005,09/29/2003,09/08 Seasonal Influenza, Trivalen t, Adjuvanted, [...] encounter Miscellaneous Notes * Telephone Encounter - Adwoa Childs OSA - 10/31/2023 12:03 PM EST Patients just called in to check on xray order. I told her it was in. They do want referral for sports med. They are walking into [facility] after the xray. * Telephone Encounter - Kenny Osborn MD [...] and gave an alternate number to call [phone], his phone number does not always receive signal * Telephone Encounter - Ifrah Brumfield OSA - 10/30/2023 2:19 PM EST An order was requested for this patient. Name of Requesting Provider: patient Order Requested: xray of right shoulder Diagnosis/Reason for Request: pain in right shoulder, no trauma. What location AND department does the patient wish to have their order completed at? [place] Fax Number, if applicable: n/a Call Back Number: [phone] If the caller is not a current [...] 1:00 PM EST Nurse Only Ancillary Department, [address] [address] [place], Nurse Annual Wellness [address] [place] [address] 04/15/2024 1:30 PM EDT Office Visit Cardiology, [facility] [address] [place] [address] Julisa Hernandez CRNP [address] [place] [address] Scheduled Orders Name Type Priority Associated Diagnoses [...] D LEVEL ONCE IN A LIFETIME-USE SMARTSET# [id number] Completed 05/25/2021, 11/20/2018, 07/13/2017, Additional history exists [...] Documents on File Type Date Recorded Patient Edge Plugger Expl anation POLST 01/29/2023 [place] OR [facility] FOR LIFE-SUSTAINING TREATMENT Latest Code [...] the patient have Health Care Power of Gluer Machine Operator? No Full Code 06/08/2010 12:41 AM 06/08/2010 9:05 AM This order reflects the patients wishes and were consensually agreed upon. Question Answer Comments Discussion of Advance Directives occurred with: Patient Does the patient have a Living Will? No Does the patient have Health Care Power of Gluer Machine Operator? No Healthcare Agents on File Name Relationship Healthcare Agent Relationship Communication Hawa wheeler Spouse First Alternate Health Care Agent Care Teams Software Security Architect Relationship Specialty Start Date End Date Kenny Osborn MD [address] [place] [address] PCP - General 08/29/05 documented as of this encounter
--- OUTSIDE RECORDS SUMMARY | 2023-12-17 21:39 | External Medical Summary | Summary of Care ---
Author Name Unknown Organization [facility] Address [address] [place] [address] Phone [phone] Care Team Providers Care Pet Walker Name Role Phone Kenny Osborn MD Primary Care Provider [phone] Reason for Visit * Reason Comments NEW PATIENT Right shoulder * Evaluate & Treat - Unlimited Visits (Within 3 days (urgent)) - Authorized Specialty Diagnoses / Procedures Referred By Giles t Referred To Contact Sports Medicine / Orthopedics Diagnoses Acute pain of right shoulder Kenny Osborn MD [address] [place] [address] Referral ID Status Reason Start Date Expiration Date Visits Requested Visits Authorized [id number] Authorized Specialty Services Required 3 [phone] Encounter Details Date Type Department Care Team (Latest Contact Info) Description 10/31/2023 2:30 PM EST Office Visit Orthopaedics [facility] [address] [place] [address] Sharer, Stacey Mario PA-C [address] [place] [address] Closed displaced fracture of acromial end of right clavicle, initial encounter*; Arthralgia of right acromioclavicular joint Allergies Active Allergy Reactions Criticality Noted Date Comments Diltiazem 06/21/1999 RASH Hydantoins Seizure High 04/18/2022 Phenytoin Sodium 01/19/1999 SEIZURES documented as of this encounter (statuses as of 11/02/2023) Medications Medication Sig Dispensed Refills Start Date [...] continuous . 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 90 Tablet 11 3 Active traMADol HCl 50 MG Oral Tablet (Ultram) Take 1 Tablet by mouth every 8 hours as needed for Pain, Severe for up to 3 days. 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 Checking wt daily Continue furosemide 20mg daily. BP 102/62--asymptomatic. Continues amlodipine, metoprolol Will continue to monitor by [facility] nursing staff. 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 INTERMED CORONARY SYND 12/27 documented as of this encounter (statuses as of 11/02/2023) Immunizations Name Administration Dates Next Due COVID-19 mRNA, LNP-s, No Pre serve, 2-Dose Series ([employer]) 11/16/2021,02/14/2021,01/18/2021 COVID-19, LNP-s, No Preserve , Jv-sucrose, Ages 12+ (Pfizer) 04/26/2022 Covid-19, Mrna, Lnp-s, Pf, B ivalent, 30 Mcg, IM, 12 yrs and above ([employer]) 08/22/2022 Pneumococcal Conjugate Vacc, 13 Valent (Prevnar) 04/20/2015 Pneumococcal Polysaccharide PPV23 (Pneumovax) 03/18/2009 Seasonal Influenza, PF, 6 M & above, IM , (FluLaval or Fluzone) 07/22/2019,08/22/2018,08/14/2017 Seasonal Influenza, Quadriva lent Hd (Fluzone Hd) 08/31/2022,08/11/2021 Seasonal Influenza, Quadriva lent, No Preserve, IM 08/10/2016 08/10/2017 Seasonal Influenza, Split, I IV3, With Preserve, Inj 07/28/2015,07/23/2014,09/30/2013,1106/2012,08/07/2011,08/08/2010,08/16/20 09,10/05/2008,09/11/2007,09/20/2006 Seasonal Influenza, Trivalen t, Adjuvanted, 65+ [...] as of this encounter Progress Notes * Sharer, Stacey Mario PA-C - 10/31/2023 3:22 PM EST Ayla Jason Wheeler is a 88 year old male who presents for consultation to [facility] for right shoulder injury/pain. Consult requested by Kenny Osborn MD. Subjective: Ayla Wheeler reports that right shoulder pain started after a fall yesterday. Reports pain acrossthe anterior shoulder. Complains of difficulty with shoulder motion. His primary care physician obtained shoulder x-rays which revealed a distal clavicle fracture. No numbness, tingling, burning, weakness. Review of systems: All others negative except those noted above in HPI. Review of patient's allergies indicates: Allergen Reactions [...] needed for Pain, Chest. 180 Tablet 3 Arexvy 120 MCG/0.5ML Intramuscular Suspension Reconstituted (RSVPreF3 Vac Recomb Adjuvanted) Injectintramuscularly in to large muscle like the deltoid. (Patient not taking: Reported on 10/08/2023) 1Each 0 Isosorbide Mononitrate ER 120 MG Oral Tablet [...] Tablet in the evening. 90 Tablet 11 No current facility-administered medications for this visit. [...] GI) performed by MICHEAL BUTLER at ENDOSCOPY [facility] ANESTH, UPPER GI ENDOSCOPIC PROCS 06/10/2010 ANESTHESIA FOR UPPER GI ENDOSCOPIC PROCEDURES (ERCP OR UPPER GI) performed by MICHEAL BUTLER at ENDOSCOPY [facility] ANESTH, UPPER GI ENDOSCOPIC PROCS 07/20/2010 ANESTHESIA FOR UPPER GI ENDOSCOPIC PROCEDURES (ERCP OR UPPER GI) performed by MICHEAL BUTLER at ENDOSCOPY [facility] BYPASS GRAFT ANGIOGRAPHY W/LEFT HEART CATH Bilateral 04/04/2022 BYPASS GRAFT ANGIOGRAPHY W/LEFT HEART CATH performed by Lalo Michaels DO at CARDIAC LABS [facility] COLONOSCOPY 11/22 diverticuli/ [place] repeat 10 years COLONOSCOPY, DIAGNOSTIC (RECTUM) 07/09/2014 adenomatous & hyperplastic polyps, diverticulosis, repeat per PCP/COLONOSCOPY FLEXIBLE PROXIMALDIAGNOSTIC performed by Eleno Mancia MD at ENDOSCOPY [facility]ONARY ARTER[facility] BYPASS, THREE [facility] DENTAL SURGERY PROCEDURE NEC EGD, W/ENDOSCOPIC US 01/13/2011 UPPER GI ENDOSCOPY ENDOSCOPIC ULTRASOUND performed by MICHEAL BUTLER at ENDOSCOPY [facility] REPAIR INITIAL INGUINAL HERNIA REDUCIBLE AGE 5 OR MORE Inguinal Hernia Repair,5+Y/O,Reducibl REPAIR INITIAL INGUINAL HERNIA REDUCIBLE AGE 5 OR MORE Inguinal Hernia Repair,5+Y/O,Reducibl VASECTOMY 1978 Social History Socioeconomic History Marital status: Spouse name: SHONDA Number of children: 3 Years of education: Not on file Highest education level: Not on file Occupational History Occupation: [employer] Employer: [email or web address] Comment: post snf - [place] Tobacco Use Smoking status: Some Days Packs/day: 1.00 Years: 28.00 Additional pack years: 0.00 Total pack years: 28.00 Types: Cigarettes, Cigars Last attempt to quit: 04/24/1980 Years since quittin.5 Smokeless tobacco: Never Tobacco comments: 1979 Has occasional cigar Vaping Use Vaping Use: Never used Substance and Sexual Activity Alcohol use: Yes Comment: OCC/ 1 bottle wine per month Drug use: No Sexual activity: Yes Other Topics Concern Service No Blood Transfusions Not Asked Comment: UNK Caffeine Concern No Occupational Exposure Yes Comment: TRAVEL Hobby Hazards Not Asked Sleep Concern No Stress Concern Yes Comment: A LITTLE, BETTER COTROLLED Weight Concern No Special Diet Yes Comment: LO FAT Back Care Not Asked Exercise Yes Comment: BIKE, X 23 CT, WALK 1 11/20 - 2 CT QD Bike Helmet Yes Seat Belt Yes Self-Exams Not Asked Social History Narrative Exercise: Bicycle/ walks Social Determinants of Health Financial Resource Strain: Not on file Food Insecurity: No Food Insecurity (12/11/2022) Hunger Vital Sign Worried About Running Out of Food in the Last Year: Never true Ran Out of Food in the Last Year: Never true Transportation Needs: Not on file Physical Activity: Not on file Stress: Not on file Social Connections: Not on file Intimate Partner Violence: Not on file Housing Stability: Not on file No family history on file. Family History; none relevant to acute HPI 10/31/2023 Objective: Physical Exam There were no vitals filed for this visit. Estimated body mass index is 24.27 kg/m as calculated from the following: Height as of 01/18/23: 1.6 m (5' 3"). Weight as of 10/08/23: 62.1 kg (137 lb). General: generally well-nourished and in no acute distress HEENT: normocephalic, atraumatic, sclera anicteric Psych: mood and affect normal , cooperative Card: Peripheral pulses: normal in affected extremity (s) Resp: equal chest rise, non-tachypneic, non-labored breathing Skin: no rash, normal Neuro: Coordination: normal; Sensation: normal on affected extremity (s) MSK: Shoulder exam, bilateral Inspection: Mild swelling along the clavicle. Skin intact. Palpation: Tenderness to palpation along distal clavicle Shoulder glenohumeral ACTIVE range of motion: Shoulder motion significantly limited with pain Strength and cuff tests: Deferred Radiology (I have personally reviewed the following films): X-rays of the shoulder were reviewed with patient those x-rays show a mildly displaced lateral clavicle fracture. Assessment and Plan: Closed displaced fracture of acromial end of right clavicle, initial encounter (Primary) Arthralgia of right acromioclavicular joint - XR SHOULDER, 1 VIEW X-rays were reviewed with Dr. Shelley who recommended nonoperative management Recommend sling and advised patient to remain nonweightbearing with the right upper extremity Encouraged ice. Recommend Tylenol as needed for pain. Follow Up: Return in about 2 weeks (around 11/14/2023) for F/u in 2 weeks with any nonoperative provider. | For: F/u in 2 weeks with any nonoperative provider Stacey Santiago PA-C [facility] [address] [place] [address] documented in this encounter Nursing Notes * Rosanne Black MED ASSIST - 10/31/2023 2:48 PM EST Patient presents today to walk in clinic for a right shoulder injury after a fall that occurred yesterday. Xrays today documented in this encounter Plan of Treatment Upcoming Encounters Date Type Department Care Team (Late st Contact Info) Description 11/21/2023 2:00 PM EST Office Visit Orthopaedics [facility] [address] [place] [address] Darrel Lovell PA-C [address] [place] [address] 12/11/2023 1:00 PM EST Nurse Only Ancillary Department, [place] [address] [facility] [place] [address] [place], Nurse Annual Wellness [address] [facility] [place] [address] 04/15/2024 1:30 PM EDT Office Visit Cardiology, [facility] [address] [place] [address] Julisa Hernandez CRNP [address] [place] [address] Pending Results Name Type Priority Associated Diagnoses Date /Time XR SHOULDER, 1 VIEW Medical Imaging Routine Arthralgia of right acromioclavicular joint 10/31/2023 3:20 PM EST Scheduled Referrals Name Type Priority Associated Diagnoses Orde r Schedule SPORTS MEDICINE REFERRAL OP Referral Within 3 days (urgent) Acute pain of right shoulder Ordered: 10/31/2023 Health Maintenance Due Date Last Done Comments [...] D LEVEL ONCE IN A LIFETIME-USE SMARTSET# [id number] Completed 05/25/2021, 11/20/2018, 07/13/2017, Additional history exists [...] end of right clavicle, initial encounter- Primary Arthralgia of right acromioclavicular joint Pain in joint, shoulder region documented in this encounter Advance Directives Documents on File Type Date Recorded Patient Materials Inspector Expl anation POLST 01/29/2023 [place] [facility] FOR [...] the patient have Health Care Power of Area Development Consultant? No Full Code 06/08/2010 12:41 AM 06/08/2010 9:05 AM This order reflects the patients wishes and were consensually agreed upon. Question Answer Comments Discussion of Advance Directives occurred with: Patient Does the patient have a Living Will? No Does the patient have Health Care Power of Area Development Consultant? No Healthcare Agents on File Name Relationship Healthcare Agent Relationship Communication Hawa wheeler Spouse First Alternate Health Care Agent Care Teams Pet Walker Relationship Specialty Start Date End Date Kenny Osborn MD [address] [place] [address] PCP - General 08/29/05 documented as of this encounter
--- OUTSIDE RECORDS SUMMARY | 2023-12-17 21:39 | External Medical Summary | Summary of Care ---
Author Name Unknown Organization [facility] Address [address] [place] [address] Phone [phone] Care Team Providers Care Motor Vehicle Dispatcher Name Role Phone Leticia Osborn MD Primary Care Provider [phone] Reason for Referral * Evaluate & Treat - Unlimited Visits (Within 3 days (urgent)) - Authorized Specialty Diagnoses / Procedures Referred By Giles olivas Referred To Contact Sports Medicine / Orthopedics Diagnoses Acute pain of right shoulder Leticia Osborn MD [address] [place] [address] Referral ID Status Reason Start Date Expiration Date Visits Requested Visits Authorized [id number] Authorized Specialty Services Required 3 [phone] Question Answer Referral Priority Within 3 days (urgent) Where should this appointment be scheduled? [facility] What body part is the patient being seen for? Shoulder What condition is the patient being seen for? Sprain/Strain/Tear/Other Reason for Visit * Reason Onset Date Comments Order Request 10/30/2023 Encounter Details Date Type Department Care Team ([facility] st Contact Info) Description 10/30/2023 Telephone Merged With [facility] [address] [facility] [place] [id number] Leticia Osborn MD [address] [facility] [place] [address] Order Request Allergies Active Allergy Reactions [...] amlodipine, metoprolol Will continue to monitor by [facility] nursing staff. 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 [...] mRNA, LNP-s, No Pre serve, 2-Dose Series ([employer]) 11/16/2021,02/14/2021,01/18/2021 COVID-19, LNP-s, No Preserve , Jv-sucrose, [...] Influenza, Split, I IV3, With Preserve, Inj 07/28/2015,07/23/2014,09/30/2013,11/06/2012,08/07/2011,08/08/2010,08/16/20 09,10/05/2008,09/11/2007,09/20/2006,1 ,01/10/2005,09/29/2003,09/08 Seasonal Influenza, Trivalen t, Adjuvanted, [...] as of this encounter Miscellaneous Notes * Addendum Note - Leticia Osborn MD - 10/31/2023 4:21 PM ESTAddended by: LETICIA OSBORN on: 10/31/2023 04:21 PM Modules accepted: Orders * Telephone Encounter - Adwoa Childs OSA - 10/31/2023 12:03 PM EST Patients just called in to check on xray order. I told her it was in. They do want referral for sports med. They are walking into [facility] after the xray. * Telephone Encounter - Leticia Osborn MD - 10/30/2023 3:52 PM EST [...] and gave an alternate number to call [phone], his phone number does not always receive signal * Telephone Encounter - Ifrah Brumfield OSA - 10/30/2023 2:19 PM EST An order was requested for this patient. Name of Requesting Provider: patient Order Requested: xray of right shoulder Diagnosis/Reason for Request: pain in right shoulder, no trauma. What location AND department does the patient wish to have their order completed at? [place] Fax Number, if applicable: n/a Call Back Number: [phone] If the caller is not a current [...] Team (Late st Contact Info) Description 11/21/2023 3:00 PM EST Office Visit Orthopaedics [facility] [address] [facility] [place] [address] Destiney Martinez MD [address] [facility] [place] [address] 12/11/2023 1:00 PM EST Nurse Only Ancillary Department, [place] [address] [place] [address] [place], [facility] Wellness [facility] [place] [address] 04/15/2024 1:30 PM EDT Office Visit Cardiology, [facility] [address] [facility] [place] [address] Julisa Hernandez CRNP [address] [place] [address] Pending Results Name Type Priority Associated Diagnoses Date /Time XR SHOULDER, 2 OR MORE VIEWS Medical Imaging Routine Acute pain of right shoulder 10/31/2023 2:04 PM EST Scheduled Orders Name Type Priority Associated Diagnoses Orde r Schedule XR SHOULDER, 2 OR MORE VIEWS Medical Imaging Routine Acute pain of right shoulder Expected: 10/30/2023, Expires: 11/30/2023 Scheduled Referrals Name Type Priority Associated Diagnoses [...] D LEVEL ONCE IN A LIFETIME-USE SMARTSET# [id number] Completed 05/25/2021, 11/20/2018, 07/13/2017, Additional history exists [...] Documents on File Type Date Recorded Patient Assistant Account Executive Expl anation POLST 01/29/2023 [place] [facility] FOR [...] the patient have Health Care Power of Ems Manager? No Full Code 06/08/2010 12:41 AM 06/08/2010 9:05 AM This order reflects the patients wishes and were consensually agreed upon. Question Answer Comments Discussion of Advance Directives occurred with: Patient Does the patient have a Living Will? No Does the patient have Health Care Power of Ems Manager? No Healthcare Agents on File Name Relationship Healthcare Agent Relationship Communication Hawa wheeler Spouse First Alternate Health Care Agent Care Teams Motor Vehicle Dispatcher Relationship Specialty Start Date End Date Leticia Osborn MD [address] [place] [address] PCP - General 08/29/05 documented as of this encounter
--- OUTSIDE RECORDS SUMMARY | 2023-12-17 21:40 | External Medical Summary | Summary of Care ---
Author Name Unknown Organization [facility] Address [address] [facility] [address] Phone [phone] Care Team Providers Care Outside Sales Account Representative Name Role Phone Kenny Osborn MD Primary Care Provider [phone] Reason for Visit * Reason Comments eRx-Medication Refill Encounter Details Date Type Department Care Team (Late st Contact Info) Description 09/22/2023 Refill Cardiology, [facility] [address] [facility] [place] [address] Matthew Carlin MD [address] [facility] [place] [address] HTN, goal below 140/90; Aortocoronary bypass status; Dyslipidemia, goal LDL below 70 Allergies Active Allergy Reactions Criticality Noted Date Comments Diltiazem 06/21/1999 RASH Hydantoins Seizure High 04/18/2022 Phenytoin Sodium 01/19/1999 SEIZURES documented as of this encounter (statuses as of 09/24/2023) Medications Medication Sig Dispensed Refills Start Date [...] morning. with food.. 100 Tablet 5 04/14/20 22 Active oxygen IN GAS Administer into nostril 2 L/min(Oxygen) continuous . 1 Each 0 06/29/20 22 Active amLODIPine Besylate 5 MG Oral Tablet (Norvasc)Indicatio ns:ASCVD (arteriosclerotic cardiovascular disease),Aortocoro nary bypass status,Dyslipidemi a, goal LDL below 70 Take 1 Tablet (5 mg) by mouth in the morning and 1 Tablet (5 mg) before bedtime. 180 Tablet 3 09/29/20 22 Active Furosemide 20 MG Oral Tablet (Lasix)Indications :Chronic systolic heart failure (HCC),HTN, goal below 140/90 Take 1 Tablet (20 mg) by mouth in the morning. 90 Tablet 3 10/13/20 22 Active carBAMazepine 200 MG Oral Tablet (Tegretol)Indicati [...] 08/20/20 23 Active Molnupiravir 200 MG Oral CapsuleIndications :COVID-19 virus infection Take 4 Capsules by mouth in the morning and 4 Capsules before bedtime. 40 Capsule 0 09/01/20 23 Active Arexvy 120 MCG/0.5ML Intramuscular Suspension Reconstituted (RSVPreF3 Vac Recomb Adjuvanted)Indicat ions:Need for RSV vaccination Inject intramuscularly in to large muscle like the deltoid. 1 Each 0 09/03/20 Active Isosorbide Mononitrate ER 120 MG Oral Tablet Extended Release 24 Hour (Imdur)Indications :HTN, goal below 140/90 TAKE 1 TABLET BY MOUTH IN THE MORNING 90 Tablet 3 09/10/20 23 Active Spironolactone 25 MG Oral Tablet (Aldactone)Indicat ions:HTN, goal below 140/90,Aortocorona ry bypass status TAKE 1 TABLET BY MOUTH EVERY MORNING 90 Tablet 3 09/24/20 23 Active Ezetimibe 10 MG Oral Tablet (Zetia)Indications :Dyslipidemia, goal LDL below 70 TAKE 1 TABLET BY MOUTH EVERY DAY 90 Tablet 3 09/24/20 23 Active Ezetimibe 10 MG Oral Tablet (Zetia)Indications :Dyslipidemia, goal LDL below 70 TAKE 1 TABLET BY MOUTH EVERY DAY 90 Tablet 3 09/29/20 22 023 Discontinued Spironolactone 25 MG Oral Tablet (Aldactone)Indicat ions:HTN, goal below 140/90,Aortocorona ry bypass status Take 1 Tablet (25 mg) by mouth in the morning. 90 Tablet 3 10/03/20 22 023 Discontinued documented as of this encounter (statuses as of 09/24/2023) Active Problems Problem Noted Date Diagnosed Date Prediabetes 03/27/2023 Hypertensive heart disease w ith chronic systolic congestive heart failure 03/13/2023 Chronic systolic heart failure 05/01/2022 Last Assessment & Plan: Euvolemic. Checking wt daily Continue furosemide 20mg daily. BP 102/62--asymptomatic. Continues amlodipine, metoprolol Will continue to monitor by [facility] nursing staff. Iron deficiency anemia 04/03/2022 Old [place] (myocardial infarction) 01/13/2020 Dissection of right iliac [...] as of this encounter (statuses as of 09/24/2023) Resolved Problems Problem Noted Date Diagnosed Date [...] as of this encounter (statuses as of 09/24/2023) Immunizations Name Administration Dates Next Due COVID-19 mRNA, LNP-s, No Pre serve, 2-Dose Series (DubMeNow) 11/16/2021,02/14/2021,01/18/2021 COVID-19, LNP-s, No Preserve , Jv-sucrose, [...] Split, I IV3, With Preserve, Inj 07/28/2015,07/23/2014,09/30/2013,11/06/2012,08/07/2011,08/08/2010,08/16/20 09,10/05/2008,09/11/2007,09/20/2006 Seasonal Influenza, Trivalen t, Adjuvanted, 65+ [...] or making decisions? (5 years old or older No 04/03/2022 documented as of this encounter Miscellaneous Notes * Telephone Encounter - Janell Read CRNP - 09/24/2023 12:35 PM EST Signed Prescriptions: Disp Refills Spironolactone 25 MG Oral Tablet ([place]*90 Tab*3 Sig: TAKE 1 TABLET BY MOUTH EVERY MORNING Authorizing Provider: JANELL READ Ezetimibe 10 MG Oral Tablet (Zetia) 90 Tab*3 Sig: TAKE 1 TABLET BY MOUTH EVERY DAY Authorizing Provider: JANELL READ * Telephone Encounter - Mili Chen COT - 09/24/2023 9:50 AM ESTPending Prescriptions: Disp Refills Spironolactone 25 MG Oral Tablet [Pharmacy*90 Tab*3 Sig: TAKE 1 TABLET BY MOUTH EVERY MORNING Ezetimibe 10 MG Oral Tablet [Pharmacy Med *90 Tab*3 Sig: TAKE 1 TABLET BY MOUTH EVERY DAY * Telephone Encounter - Mili Chen COT - 09/24/2023 9:49 AM EST Did you pend patient's preferred pharmacy and medication before forwarding?yes Pharmacy: [facility] [id number] [place] Pending Prescriptions: Disp Refills Spironolactone 25 MG Oral Tablet (Aldacto*90 Tab*3 Sig: TAKE 1 TABLET BY MOUTH EVERY MORNING Ezetimibe 10 MG Oral Tablet (Zetia) [Phar*90 Tab*3 Sig: TAKE 1 TABLET BY MOUTH EVERY DAY Last Visit: 07/19/2023 (in office), Visit date not found (telemedicine) Next Visit: 10/08/2023 If no future appointments scheduled, and last appointment is greater than a year ago, please schedule patient for a follow-up appointment Last date the medication was ordered: Ezetimibe: 09-29-2022 Spironolactone: 10-03-2022 Is this request for a controlled substance?No [...] Care Team (Late st Contact Info) Description 10/01/2023 4:00 PM EST Cardiac Studies Cardiac Studies, [facility] [address] [facility] [place] [address] 10/08/2023 10:30 AM EST Office Visit Cardiology, [facility] [address] [facility] [place] [address] Janell Read CRNP 132 [facility] [place] [address] 12/11/2023 1:00 PM EST Nurse Only Ancillary Department, [place] [address] [facility] [place] [address] [place], Nurse [facility] [address] [facility] [place] [address] Health Maintenance Due Date Last Done Comments DISCUSS TOBACCO CESSATION (REFER TO SMARTSET #3291) 1937 *BISPHONATE OR OTHER ACCEPTABLE MEDICATION NEEDED FOR OSTEOPOROSIS (REFER TO SMARTSET #7944) 12/09/2017 DXA Scan 11/15/2022 11/15/2020, 01/2016, 05/18/2014, Additional history exists DTaP,Tdap,and Td Vaccines (2 - Td or Tdap) 04/01/2023 04/01/2013, 04/11/2010, 12/10/1998 AAA Monitoring 04/07/2023 04/07/2022, 05/20, 06/30/2020, Additional history exists Depression Screening 12/11/2023 12/11/2022 HbA1c 03/19/2024 03/19/2023, 03/19, 12/10/1998 Albumin/Creatinine Ratio 05/25/2024 05/25/2021, 12/2018 Hepatitis B Completed 06/21/1999, 01/1999, 12/10/1998 Pneumococcal Vaccine: 65+ Years Completed 04/20/2015, 03/18/2009, 12/05/2001 Zoster Vaccines Completed 12/06/2018, 05/19, 12/23/2008 VITAMIN D LEVEL ONCE IN A LIFETIME-USE SMARTSET# [id number] Completed 05/25/2021, 11/20/2018, 07/13/2017, Additional history exists [...] encounter Visit Diagnoses Diagnosis HTN, goal below 140/90 Unspecified essential hypertension Aortocoronary bypass status Postsurgical aortocoronary bypass status Dyslipidemia, goal LDL below 70 Other and unspecified hyperlipidemia documented in this encounter Advance Directives Documents on File Type Date Recorded Patient Risk Manager Expl anation POLST 01/29/2023 [place] OR [facility] FOR LIFE-SUSTAINING TREATMENT Latest Code [...] the patient have Health Care Power of Central Supply Worker? No Full Code 06/08/2010 12:41 AM 06/08/2010 9:05 AM This order reflects the patients wishes and were consensually agreed upon. Question Answer Comments Discussion of Advance Directives occurred with: Patient Does the patient have a Living Will? No Does the patient have Health Care Power of Central Supply Worker? No Healthcare Agents on File Name Relationship Healthcare Agent Relationship Communication Hawa wheeler Spouse First Alternate Health Care Agent Care Teams Outside Sales Account Representative Relationship Specialty Start Date End Date Kenny Osborn MD [address] [place] [address] PCP - General 08/29/05 documented as of this encounter
--- OUTSIDE RECORDS SUMMARY | 2023-12-17 21:40 | External Medical Summary | Summary of Care ---
Author Name Unknown Organization [facility] Address [address] [place] [address] Phone [phone] Care Team Providers Care Rn Oncology Research Name Role Phone Leticia Osborn MD Primary Care Provider Reason for Visit * Reason Comments eRx-Medication Refill Encounter Details Date Type Department Care Team (Late st Contact Info) Description 10/04/2023 Refill [facility] [address] [place] [address] MarchJose MD [address] [place] [address] Chronic systolic heart failure (HCC); HTN, goal below 140/90 Allergies Active Allergy Reactions Criticality Noted Date [...] as needed for Pain. 100 g 5 06/03/20 20 Active Aspirin 81 MG Oral Tablet [...] 23 Active Furosemide 20 MG Oral Tablet (Lasix)Indications [...] bedtime. 180 Tablet 3 10/04/20 23 Active Furosemide 20 MG Oral Tablet (Lasix)Indications [...] amlodipine, metoprolol Will continue to monitor by [facility] nursing staff. Iron deficiency anemia 04/03/2022 Old [place] (myocardial infarction) 01/13/2020 Dissection of right iliac [...] mRNA, LNP-s, No Pre serve, 2-Dose Series (Distractify) 11/16/2021,02/14/2021,01/18/2021 COVID-19, LNP-s, No Preserve , Jv-sucrose, [...] encounter Miscellaneous Notes * Telephone Encounter - Monico Goins RPh - 10/04/2023 1:53 PM EST Signed Prescriptions: Disp Refills Furosemide 20 MG Oral Tablet (Lasix) 90 Tab*1 Sig: TAKE 1 TABLETBY MOUTH EVERY MORNINGAuthorizing Provider: LETICIA OSBORN User: MONICO GOINS----- documented in this encounter Plan of Treatment Upcoming Encounters Date Type Department Care Team (Late st Contact Info) Description 10/08/2023 10:30 AM EST Office Visit Cardiology, [facility] [address] [place] [address] Julisa Hernandez CRNP [address] [place] [address] 12/11/2023 1:00 PM EST Nurse Only Ancillary Department, [place] [address] [facility] [address] [place], Nurse Annual Wellness [address] [place] [address] Health Maintenance Due Date Last Done Comments [...] D LEVEL ONCE IN A LIFETIME-USE SMARTSET# [id number] Completed 05/25/2021, 11/20/2018, 07/13/2017, Additional history exists [...] as of this encounter Visit Diagnoses Diagnosis Chronic systolic heart failure (HCC) Chronic systolic heart failure HTN, goal below 140/90 Unspecified essential hypertension documented in this encounter Advance Directives Documents on File Type Date Recorded Patient Leather Shaver Expl anation POLST 01/29/2023 [place] OR [facility] FOR LIFE-SUSTAINING TREATMENT Latest Code Status [...] the patient have Health Care Power of Local Bulk Driver? No Full Code 06/08/2010 12:41 AM 06/08/2010 9:05 AM This order reflects the patients wishes and were consensually agreed upon. Question Answer Comments Discussion of Advance Directives occurred with: Patient Does the patient have a Living Will? No Does the patient have Health Care Power of Local Bulk Driver? No Healthcare Agents on File Name Relationship Healthcare Agent Relationship Communication Hawa wheeler Spouse First Alternate Health Care Agent Care Teams Rn Oncology Research Relationship Specialty Start Date End Date Leticia Osborn MD [address] [place] [address] PCP - General 08/29/05 documented as of this encounter
--- OUTSIDE RECORDS SUMMARY | 2023-12-17 21:40 | External Medical Summary | Summary of Care ---
Author Name Unknown Organization [facility] Address [address] [facility] [place] [address] Phone [phone] Care Team Providers Care Tar Processing Technician Name Role Phone Kenny Osborn MD Primary Care Provider [phone] Encounter Details Date Type Department Care Team Description 08/16/2023 Orders Only Cardiology, [facility] [address] [place] [address] Julisa Hernandez CRNP [address] [place] [address] Palpitations*; Coronary atherosclerosis of autologous bypass graft; HTN, goal below 140/90 Allergies Active Allergy Reactions Severity Noted Date Comments Diltiazem 06/21/1999 RASH Hydantoins Seizure High 04/18/2022 Phenytoin Sodium 01/19/1999 SEIZURES documented as of this encounter (statuses as of 08/16/2023) Medications Medication Sig Dispensed Refills Start Date End Date Status MULTIVITAMIN TABS OR one pill each day 100 0 01/19/2003 Active Ferrous Sulfate (IRON) 28 MG Tablet Take 1 Tablet by mouth in the morning. 0 Active Diclofenac Sodium 1 % gelIndications:Gener alized osteoarthritis Place 2 g topically on the skin 4 times a day as needed for Pain. 100 g 5 04/21/2020 Active Aspirin 81 MG Oral Tablet Chewable Take by mouth 1 Tablet in the morning. with food.. 100 Tablet 5 04/14/2022 Active oxygen IN GAS Administer into nostril 2 L/min(Oxygen) continuous . 1 Each 0 06/29/2022 Active Isosorbide Mononitrate ER 120 MG Oral Tablet Extended Release 24 Hour Take by mouth 1 Tablet in the morning. 90 Tablet 3 08/02/2022 Active Ezetimibe 10 MG Oral Tablet (Zetia)Indications:D yslipidemia, goal LDL below 70 TAKE 1 TABLET BY MOUTH EVERY DAY 90 Tablet 3 09/29/2022 Active amLODIPine Besylate 5 MG Oral Tablet (Norvasc)Indications :ASCVD (arteriosclerotic cardiovascular disease),Aortocorona ry bypass status,Dyslipidemia, goal LDL below 70 Take 1 Tablet (5 mg) by mouth in the morning and 1 Tablet (5 mg) before bedtime. 180 Tablet 3 09/29/2022 Active Spironolactone 25 MG Oral Tablet (Aldactone)Indicatio ns:HTN, goal below 140/90,Aortocoronary bypass status Take 1 Tablet (25 mg) by mouth in the morning. 90 Tablet 3 10/03/2022 Active Furosemide 20 MG Oral Tablet (Lasix)Indications:C hronic systolic heart failure (HCC),HTN, goal below 140/90 Take 1 Tablet (20 mg) by mouth in the morning. 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 90 Tablet 3 04/02/2023 Active Rosuvastatin Calcium 40 MG Oral Tablet (Crestor)Indications :ASCVD (arteriosclerotic cardiovascular disease),Aortocorona ry bypass status,Dyslipidemia, goal LDL below 70 Take 1 Tablet by mouth in the morning. 90 Tablet 3 04/17/2023 Active Nitroglycerin 0.4 MG Sublingual Tablet Sublingual (Nitrostat) Place 1 Tablet under the tongue every 5 minutes as needed for Pain, Chest. 180 Tablet 3 06/28/2023 Active Metoprolol Tartrate 50 MG Oral Tablet (Lopressor)Indicatio ns:Palpitations,Kellen nary atherosclerosis of autologous bypass graft,HTN, goal below 140/90 Take 1 Tablet by mouth in the morning and 1 Tablet before bedtime. 60 Tablet 5 08/16/2023 Active Metoprolol Tartrate 25 MG Oral Tablet (Lopressor)Indicatio ns:Coronary atherosclerosis of autologous bypass graft Take 1.5 Tablets by mouth in the morning and 1.5 Tablets at noon and 1.5 Tablets before bedtime. 135 Tablet 5 07/17/2023 3 Discontinu ed(Medicat ion/Dose Changed) documented as of this encounter (statuses as of 08/16/2023) Active Problems Problem Noted Date Prediabetes 03/27/2023 Hypertensive heart disease with chronic systolic congestive heart failure 03/13/2023 Chronic systolic heart failure 2 Last Assessment & Plan: Euvolemic. Checking wt daily Continue furosemide 20mg daily. BP 102/62--asymptomatic. Continues amlodipine, metoprolol Will continue to monitor by [facility] nursing staff. Iron deficiency anemia 04/03/2022 Old [place] (myocardial infarction) 0 Dissection of right iliac artery 020 Last Assessment & Plan: Followed by vascular. 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 Was on fosamax in the past for years. 'It didn;t help at all." Eczema 12/14/2015 HTN, goal below 150/90 01/19/2015 AAA (abdominal aortic aneurysm) 11/23/19 15 Overview: 12/06/12 3.8 cm Last Assessment & Plan: Closely followed by vascular. Pt reports he does not want surgery, risk of rupture lower than risk of with surgery. He plans to continue vascular follow up. 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 INTERMED CORONARY SYND 0 documented as of this encounter (statuses as of 08/16/2023) Immunizations Name Administration Dates Next Due COVID-19 mRNA, LNP-s, No Pre serve, 2-Dose Series (Flayr) 11/16/2021,02/14/2021,01/18/2021 COVID-19, LNP-s, No Preserve , Jv-sucrose, Ages 12+ (Flayr) 04/26/2022 Covid-19, Mrna, Lnp-s, Pf, B ivalent, 30 Mcg, IM, 12 yrs and above (Flayr) 08/22/2022 Pneumococcal Conjugate Vacc, 13 Valent (Prevnar) 04/20/2015 Pneumococcal Polysaccharide PPV23 (Pneumovax) 03/18/2009 Seasonal Influenza, PF, 6 mo ns & Above, IM , (Flulaval) 07/22/2019,08/22/2018,08/14/2017 Seasonal Influenza, Quadriva lent Hd (Fluzone [...] to quit: 04/24/1980 Cigars Smokeless Tobacco: Never Comments:1979Has occasional cigar Alcohol Use Standard Drinks/Week Comments Yes 0 (1 standard drink = 0.6 oz pur e alcohol) OCC/ 1 bottle wine per month Food Insecurity Answer Date Recorded Within the past 12 months, y ou worried that your food would run out before you got money to buy more. Never true 12/11/2022 Within the past 12 months, t he food you bought just didn't last and you didn't have money to get more. Never true 12/11/2022 Sex Assigned at Date Recorded Male 10/07/2020 9:[address] Job Start Date Occupation Industry Not on [...] Plan of Treatment Upcoming Encounters Date Type Specialty Care Team Description 10/01/2023 Cardiac Studies Cardiac Studies 10/08/2023 Office Visit Cardiology Julisa Hernandez CRNP [address] [place] [address] 12/11/2023 Nurse Only Nurse Tara Annual [facility]ness [address] [facility] [place] [address] Health Maintenance Due Date Last Done Comments DISCUSS TOBACCO CESSATION (REFER TO SMARTSET #2741) 1935 *BISPHONATE OR OTHER ACCEPTABLE MEDICATION NEEDED [...] D LEVEL ONCE IN A LIFETIME-USE SMARTSET# [id number] Completed 05/25/2021, 11/20/2018, 07/13/2017, Additional history exists COVID-19 Vaccine Completed 08/22/2022, 06/2022, 11/16/2021, Additional history exists Influenza Vaccine (FLU shot) Completed , 08/31/2022, 08/11/2021, Additional history exists GARDASIL-HPV IMMUNIZATION SERIES Aged Out No longer eligible based on patient's age to complete this topic MENINGOCOCCAL (MENACTRA/MENVEO) Aged Out No longer eligible based on patient's age to complete this topic documented as of this encounter Medical Devices Not on filedocumented as of this encounter Visit Diagnoses Diagnosis Palpitations- Primary Coronary atherosclerosis of autologous bypass graft Coronary atherosclerosis of unspecified type of bypass graft HTN, goal below 140/90 Unspecified essential hypertension documented in this encounter Advance Directives Documents on File Type Date Recorded Patient Radiological Equipment Specialist Expl anation POLST 01/29/2023 [place] OR [facility] FOR LIFE-SUSTAINING TREATMENT Latest Code [...] the patient have Health Care Power of Special Effects Person? No Full Code 06/08/2010 12:41 AM 06/08/2010 9:05 AM This order reflects the patients wishes and were consensually agreed upon. Question Answer Comments Discussion of Advance Directives occurred with: Patient Does the patient have a Living Will? No Does the patient have Health Care Power of Special Effects Person? No Healthcare Agents on File Name Relationship Healthcare Agent Relationship Communication Hawa wheeler Spouse First Alternate Health Care Agent Care Teams Tar Processing Technician Relationship Specialty Start Date End Date Kenny Osborn MD [facility] [place] [address] PCP - General 08/29/05 documented as of this encounter
--- OUTSIDE RECORDS SUMMARY | 2023-12-17 21:40 | External Medical Summary | Summary of Care ---
Author Name Unknown Organization [facility] Address [address] [place] [address] Phone [phone] Care Team Providers Care Farm Specialist Name Role Phone Kenny Osborn MD Primary Care Provider [phone] Reason for Visit * Reason Onset Date Comments Fax Refill 10/04/2023 Encounter Details Date Type Department Care Team (Late st Contact Info) Description 10/04/2023 Telephone Cardiology, [facility] [address] [place] [address] Dipti Mota CRNP [address] [place] [address] Fax Refill Allergies Active Allergy Reactions Criticality [...] nursing staff. Iron deficiency anemia 04/03/2022 Old [place] (myocardial infarction) 01/13/2020 Dissection of right iliac [...] mRNA, LNP-s, No Pre serve, 2-Dose Series (CoursePeer) 11/16/2021,02/14/2021,01/18/2021 COVID-19, LNP-s, No Preserve , Jv-sucrose, [...] pharmacy and medication before forwarding?yes Pharmacy: [id number] [id number] [place] Pending Prescriptions: Disp Refills [...] 10/08/2023 10:30 AM EST Office Visit Cardiology, [facility] [address] [place] [address] Julisa Hernandez CRNP [address] [facility] [place] [address] 12/11/2023 1:00 PM EST Nurse Only Ancillary Department, [place] [facility] [address] [facility] [place] [address] [place], Nurse Annual Wellness [address] [facility] [place] [address] Health Maintenance Due Date Last Done Comments [...] D LEVEL ONCE IN A LIFETIME-USE SMARTSET# [id number] Completed 05/25/2021, 11/20/2018, 07/13/2017, Additional history exists [...] Documents on File Type Date Recorded Patient Archeology Faculty Member Expl anation POLST 01/29/2023 [place] OR [facility] FOR LIFE-SUSTAINING TREATMENT Latest Code Status [...] the patient have Health Care Power of Manager Heavy Duty? No Full Code 06/08/2010 12:41 AM 06/08/2010 9:05 AM This order reflects the patients wishes and were consensually agreed upon. Question Answer Comments Discussion of Advance Directives occurred with: Patient Does the patient have a Living Will? No Does the patient have Health Care Power of Manager Heavy Duty? No Healthcare Agents on File Name Relationship Healthcare Agent Relationship Communication Hawa wheeler Spouse First Alternate Health Care Agent Care Teams Farm Specialist Relationship Specialty Start Date End Date Kenny Osborn MD [address] [place] [address] PCP - General 08/29/05 documented as of this encounter
--- OUTSIDE RECORDS SUMMARY | 2023-12-17 21:40 | External Medical Summary | Summary of Care ---
Author Name Unknown Organization [facility] Address [address] [facility] [place] [address] Phone [phone] Care Team Providers Care Framing Mill Operator Name Role Phone Kenny Osborn MD Primary Care Provider [phone] Reason for Visit * Reason Comments eRx-Medication Refill Encounter Details Date Type Department Care Team (Late st Contact Info) Description 09/09/2023 [address]iology, [facility] [address] [place] [address] Matthew Carlin MD [address] [place] [address] HTN, goal below 140/90* Allergies Active Allergy Reactions Criticality Noted Date Comments Diltiazem 06/21/1999 RASH Hydantoins Seizure High 04/18/2022 Phenytoin Sodium 01/19/1999 SEIZURES documented as of this encounter (statuses as of 09/10/2023) Medications Medication Sig Dispensed Refills Start Date [...] . 1 Each 0 06/29/20 22 Active Ezetimibe 10 MG Oral Tablet (Zetia)Indications :Dyslipidemia, goal LDL below 70 TAKE 1 TABLET BY MOUTH EVERY DAY 90 Tablet 3 09/29/20 22 Active amLODIPine Besylate 5 MG Oral Tablet (Norvasc)Indicatio ns:ASCVD (arteriosclerotic cardiovascular disease),Aortocoro nary bypass status,Dyslipidemi a, goal LDL below 70 Take 1 Tablet (5 mg) by mouth in the morning and 1 Tablet (5 mg) before bedtime. 180 Tablet 3 09/29/20 22 Active Spironolactone 25 MG Oral Tablet (Aldactone)Indicat ions:HTN, goal below 140/90,Aortocorona ry bypass status Take 1 Tablet (25 mg) by mouth in the morning. 90 Tablet 3 10/03/20 22 Active Furosemide 20 MG Oral Tablet [...] Capsules before bedtime. 40 Capsule 0 09/01/20 Active Arexvy 120 MCG/0.5ML Intramuscular Suspension Reconstituted (RSVPreF3 Vac Recomb Adjuvanted)Indicat ions:Need for RSV vaccination Inject intramuscularly in to large muscle like the deltoid. 1 Each 0 09/03/20 Active Isosorbide Mononitrate ER 120 MG Oral Tablet Extended Release 24 Hour (Imdur)Indications :HTN, goal below 140/90 TAKE 1 TABLET BY MOUTH IN THE MORNING 90 Tablet 3 09/10/20 Active Isosorbide Mononitrate ER 120 MG Oral Tablet Extended Release 24 Hour Take by mouth 1 Tablet in the morning. 90 Tablet 3 08/02/20 22 023 Discontinued documented as of this encounter (statuses as of 09/10/2023) Active Problems Problem Noted Date Diagnosed Date Prediabetes 03/27/2023 Hypertensive heart disease w ith chronic systolic congestive heart failure 03/13/2023 Chronic systolic heart failure 05/01/2022 Last Assessment & Plan: Euvolemic. Checking wt daily Continue furosemide 20mg daily. BP 102/62--asymptomatic. Continues amlodipine, metoprolol Will continue to monitor by [facility] nursing staff. 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 [...] as of this encounter (statuses as of 09/10/2023) Resolved Problems Problem Noted Date Diagnosed Date [...] as of this encounter (statuses as of 09/10/2023) Immunizations Name Administration Dates Next Due COVID-19 mRNA, LNP-s, No Pre serve, 2-Dose Series ([employer] 11/16/2021,02/14/2021,01/18/2021 COVID-19, LNP-s, No Preserve , Jv-sucrose, [...] encounter Miscellaneous Notes * Telephone Encounter - AYSHA Armando - 09/10/2023 12:09 PM EDT Signed Prescriptions: Disp Refills Isosorbide Mononitrate ER 120 MG Oral Tabl*90 Tab*3 Sig: TAKE 1 TABLET BY MOUTH IN THE MORNING Authorizing Provider: JANELL READ * Telephone Encounter - LYRIC Tran - 09/10/2023 8:44 AM EDTPending Prescriptions: Disp Refills Isosorbide Mononitrate ER 120 MG Oral Tabl*90 Tab*3 Sig: TAKE 1 TABLET BY MOUTH IN THE MORNING * Telephone Encounter - LYRIC Tran - 09/10/2023 8:44 AM EDT Did you pend patient's preferred pharmacy and medication before forwarding?yes Pharmacy: [facility] [id number] [place] Pending Prescriptions: Disp Refills Isosorbide Mononitrate ER 120 MG Oral Tab*90 Tab*3 Sig: TAKE 1 TABLET BY MOUTH IN THE MORNING Last Visit: 07/19/2023 (in office), Visit date not found (telemedicine) Next Visit: 10/08/2023 If no future appointments scheduled, and last appointment is greater than a year ago, please schedule patient for a follow-up appointment Last date the medication was ordered: 08-02-2022 Is this request for a controlled substance?No [...] 4:00 PM EST Cardiac Studies Cardiac Studies, [facility] [address] [facility] [place] [address] 10/08/2023 10:30 AM EST Office Visit Cardiology, [facility] [address] [facility] [place] [address] Janell Read CRNP [address] [facility] [place] [address] 12/11/2023 1:00 PM EST Nurse Only Ancillary Department, [place] [address] [place] [address] [place], Nurse [facility] [address] [place] [address] Health Maintenance Due Date Last Done Comments [...] D LEVEL ONCE IN A LIFETIME-USE SMARTSET# [id number] Completed 05/25/2021, 11/20/2018, 07/13/2017, Additional history exists [...] goal below 140/90- Primary Unspecified essential hypertension documented in this encounter Advance Directives Documents on File Type Date Recorded Patient Tobacco Hanger Expl anation POLST 01/29/[address] [place] [address] [facility] FOR LIFE-SUSTAINING TREATMENT Latest Code [...] the patient have Health Care Power of Poultry Offal Icer? No Full Code 06/08/2010 12:41 AM 06/08/2010 9:05 AM This order reflects the patients wishes and were consensually agreed upon. Question Answer Comments Discussion of Advance Directives occurred with: Patient Does the patient have a Living Will? No Does the patient have Health Care Power of Poultry Offal Icer? No Healthcare Agents on File Name Relationship Healthcare Agent Relationship Communication Hawa wheeler Spouse First Alternate Health Care Agent Care Teams Framing Mill Operator Relationship Specialty Start Date End Date Kenny Osborn MD [address] [place] [address] PCP - General 08/29/05 documented as of this encounter
--- OUTSIDE RECORDS SUMMARY | 2023-12-17 21:40 | External Medical Summary | Summary of Care ---
Author Name Unknown Organization [facility] Address [address] [place] [address] Phone [phone] Care Team Providers Care Wardsperson Name Role Phone Kenny Osborn MD Primary Care Provider [phone] Reason for Visit * Reason Onset Date Comments Med Request 09/01/2023 Paxlovid Encounter Details Date Type Department Care Team Description 09/01/2023 Telephone [facility] [address] [place] [address] Kenny Osborn MD [address] [place] [address] Med Request (Paxlovid) Allergies Active Allergy Reactions Severity Noted Date Comments Diltiazem 06/21/1999 RASH Hydantoins Seizure High 04/18/2022 Phenytoin Sodium 01/19/1999 SEIZURES documented as of this encounter (statuses as of 09/01/2023) Medications Medication Sig Dispensed Refills Start Date [...] continuous . 1 Each 0 2 Active Isosorbide Mononitrate ER 120 MG Oral Tablet Extended Release 24 Hour Take by mouth 1 Tablet in the morning. 90 Tablet 3 2 Active Ezetimibe 10 MG Oral Tablet (Zetia)Indications :Dyslipidemia, goal LDL below 70 TAKE 1 TABLET BY MOUTH EVERY DAY 90 Tablet 3 2 Active amLODIPine Besylate 5 MG Oral Tablet (Norvasc)Indicatio ns:ASCVD (arteriosclerotic cardiovascular disease),Aortocoro nary bypass status,Dyslipidemi a, goal LDL below 70 Take 1 Tablet (5 mg) by mouth in the morning and 1 Tablet (5 mg) before bedtime. 180 Tablet 3 2 Active Spironolactone 25 MG Oral Tablet (Aldactone)Indicat ions:HTN, goal below 140/90,Aortocorona ry bypass status Take 1 Tablet (25 mg) by mouth in the morning. 90 Tablet 3 2 Active Furosemide 20 MG Oral Tablet (Lasix)Indications :Chronic systolic heart failure (HCC),HTN, goal below 140/90 Take 1 Tablet (20 mg) by mouth in the morning. 90 Tablet 3 2 Active carBAMazepine 200 MG Oral Tablet [...] Pain, Chest. 180 Tablet 3 3 Active Metoprolol Tartrate 50 MG Oral Tablet (Lopressor) Take 1 Tablet by mouth in the morning and 1 Tablet at noon and 1 Tablet in the evening. 60 Tablet 5 3 Active Molnupiravir 200 MG Oral CapsuleIndications :COVID-19 virus infection Take 4 Capsules by mouth in the morning and 4 Capsules before bedtime. 40 Capsule 0 3 Active Nirmatrelvir&Riton avir 300/100 20 x 150 MG & 10 x 100MG Oral Tablet Therapy Pack (Paxlovid (300/100))Indicati ons:COVID-19 virus infection Take 2 pink tablets of Nirmatrelvir and 1 white tablet of Ritonavir two times a day by mouth. 30 Tablet 0 3 09/01/20 23 Discontinued documented as of this encounter (statuses as of 09/01/2023) Active Problems Problem Noted Date Prediabetes 03/27/2023 Hypertensive heart disease with chronic systolic congestive heart failure 03/13/2023 Chronic systolic heart failure 2 Last Assessment & Plan: Euvolemic. Checking wt daily Continue furosemide 20mg daily. BP 102/62--asymptomatic. Continues amlodipine, metoprolol Will continue to monitor by [facility] nursing staff. Iron deficiency anemia 04/03/2022 Old [place] (myocardial infarction) 0 Dissection of right iliac [...] AAA (abdominal aortic aneurysm) 11/23/19 15 Overview: 1/18/13 3.8 cm Last Assessment & Plan: Closely [...] as of this encounter (statuses as of 09/01/2023) Resolved Problems Problem Noted Date Resolved Date [...] as of this encounter (statuses as of 09/01/2023) Immunizations Name Administration Dates Next Due COVID-19 mRNA, LNP-s, No Pre serve, 2-Dose Series ([employer]) 11/16/2021,02/14/2021,01/18/2021 COVID-19, LNP-s, No Preserve , Jv-sucrose, [...] to quit: 04/24/1980 Cigars Smokeless Tobacco: Never Comments:1979Ha occasional cigar Alcohol Use Standard Drinks/Week Comments [...] encounter Miscellaneous Notes * Telephone Encounter - CHELSIE Gaviria - 09/01/2023 10:30 AM EDT Reason for patient call/what is patient requesting? Paxlovid Have you had symptoms of COVID-19 such as fever, sore throat, shortness of breath? COVID19 Symptoms:yes Date of first symptoms: 08/29/23 Date of last fever: never Date of last symptoms: still ill Have you had close exposure to someone who tested positive for COVID-19? COVID19 Exposure: Date of first exposure: Date of last exposure: Testing location requested: Positive COVID 19 test in the past 90 days? Clinic Test Home test 08/31/23 Did you have 2 vaccines yes Boosters1 documented in this encounter Plan of Treatment Upcoming Encounters Date Type Specialty Care Team Description 09/03/2023 Telemedicine Family Medicine Taisha Workman MD [address] [place] [address] 10/01/2023 Cardiac Studies Cardiac Studies 10/08/2023 Office Visit Cardiology Julisa Hernandez CRNP [address] [place] [address] 12/11/2023 Nurse Only Nurse Tara [facility] [address] [facility] [place] [address] Health Maintenance Due Date Last Done Comments [...] D LEVEL ONCE IN A LIFETIME-USE SMARTSET# [id number] Completed 05/25/2021, 11/20/2018, 07/13/2017, Additional history exists [...] as of this encounter Visit Diagnoses Diagnosis COVID-19 virus infection- Primary documented in this encounter Advance Directives Documents on File Type Date Recorded Patient Cut Off Machine Unloader Expl anation POLST 01/29/2023 [place] OR [facility] FOR LIFE-SUSTAINING TREATMENT Latest Code Status [...] the patient have Health Care Power of Channel Program Manager? No Full Code 06/08/2010 12:41 AM 06/08/2010 9:05 AM This order reflects the patients wishes and were consensually agreed upon. Question Answer Comments Discussion of Advance Directives occurred with: Patient Does the patient have a Living Will? No Does the patient have Health Care Power of Channel Program Manager? No Healthcare Agents on File Name Relationship Healthcare Agent Relationship Communication Hawa wheeler Spouse First Alternate Health Care Agent Care Teams Wardsperson Relationship Specialty Start Date End Date Kenny Osborn MD [address] [place] [address] PCP - General 08/29/05 documented as of this encounter
--- OUTSIDE RECORDS SUMMARY | 2023-12-17 21:40 | External Medical Summary | Summary of Care ---
Author Name Unknown Organization [facility] Address [address] [place] [address] Phone [phone] Care Team Providers Care Environmental Issues Instructor Name Role Phone Kenny Osborn MD Primary Care Provider [phone] Reason for Visit * Reason Onset Date Comments Advice 09/07/2023 Leg weakness Encounter Details Date Type Department Care Team Description 09/07/2023 Telephone [facility] [address] [place] [address] Kenny Osborn MD [address] [place] [address] Advice (Leg weakness) Allergies Active Allergy Reactions Severity Noted Date Comments Diltiazem 06/21/1999 RASH Hydantoins Seizure High 04/18/2022 Phenytoin Sodium 01/19/1999 SEIZURES documented as of this encounter (statuses as of 09/07/2023) Medications Medication Sig Dispensed Refills Start Date [...] 08/02/2022 Active Ezetimibe 10 MG Oral Tablet (Zetia)Indications: Dyslipidemia, goal LDL below 70 TAKE 1 TABLET BY MOUTH EVERY DAY 90 Tablet 3 09/29/2022 Active amLODIPine Besylate 5 MG Oral Tablet (Norvasc)Indication s:ASCVD (arteriosclerotic cardiovascular disease),Aortocoron dread bypass status,Dyslipidemia , goal LDL below 70 Take 1 Tablet (5 mg) by mouth in the morning and 1 Tablet (5 mg) before bedtime. 180 Tablet 3 09/29/2022 Active Spironolactone 25 MG Oral Tablet (Aldactone)Indicati ons:HTN, goal below 140/90,Aortocoronar y bypass status Take 1 Tablet (25 mg) by mouth in the morning. 90 Tablet 3 10/03/2022 Active Furosemide 20 MG Oral Tablet (Lasix)Indications: Chronic systolic heart failure (HCC),HTN, goal below 140/90 Take 1 Tablet (20 mg) by mouth in the morning. 90 Tablet 3 10/13/2022 Active carBAMazepine 200 MG Oral Tablet (Tegretol)Indicatio [...] Tablet in the evening. 60 Tablet 5 08/20/2023 Active Molnupiravir 200 MG Oral CapsuleIndications: COVID-19 virus infection Take 4 Capsules by mouth in the morning and 4 Capsules before bedtime. 40 Capsule 0 09/01/2023 Active Arexvy 120 MCG/0.5ML Intramuscular Suspension Reconstituted (RSVPreF3 Vac Recomb Adjuvanted)Indicati ons:Need for RSV vaccination Inject intramuscularly in to large muscle like the deltoid. 1 Each 0 09/03/2023 Active documented as of this encounter (statuses as of 09/07/2023) Active Problems Problem Noted Date Prediabetes 03/27/2023 Hypertensive heart disease with chronic systolic congestive heart failure 03/13/2023 Chronic systolic heart failure 2 Last Assessment & Plan: Euvolemic. Checking wt daily Continue furosemide 20mg daily. BP 102/62--asymptomatic. Continues amlodipine, metoprolol Will continue to monitor by [facility] nursing staff. Iron deficiency anemia 04/03/2022 [...] as of this encounter (statuses as of 09/07/2023) Resolved Problems Problem Noted Date Resolved Date [...] as of this encounter (statuses as of 09/07/2023) Immunizations Name Administration Dates Next Due COVID-19 mRNA, LNP-s, No Pre serve, 2-Dose Series ([email or web address]) 11/16/2021,02/14/2021,01/18/2021 COVID-19, LNP-s, No Preserve , Jv-sucrose, Ages 12+ ([email or web address]) 04/26/2022 Covid-19, Mrna, Lnp-s, Pf, B ivalent, [...] Miscellaneous Notes * Telephone Encounter - CHELSIE Monahan - 09/07/2023 2:46 PM EDT No Appointments Available Patient declined appointments?: No What Visit Type is needed? Acute If Acute Visit Type is needed, were surrounding clinics offered to patient (Yes/No)? N/A Was patient offered appointments with other available providers (Yes/No)? N/A See Call Details? (Yes or No): Yes documented in this encounter Plan of Treatment Upcoming Encounters Date Type Specialty Care Team Description 10/01/2023 Cardiac Studies Cardiac Studies 10/08/2023 Office Visit Cardiology Julisa Hernandez CR[facility] [address] [facility] [address] 12/11/2023 Nurse Only Nurse Tara [facility] [address] [facility] [place] [address] Health Maintenance Due Date Last Done Comments [...] D LEVEL ONCE IN A LIFETIME-USE SMARTSET# [id number] Completed 05/25/2021, 11/20/2018, 07/13/2017, Additional history exists [...] Documents on File Type Date Recorded Patient Policy Change Clerk Expl anation POLST 01/29/2023 [place] OR [facility] FOR LIFE-SUSTAINING [...] the patient have Health Care Power of Day Worker? No Full Code 06/08/2010 12:41 AM 06/08/2010 9:05 AM This order reflects the patients wishes and were consensually agreed upon. Question Answer Comments Discussion of Advance Directives occurred with: Patient Does the patient have a Living Will? No Does the patient have Health Care Power of Day Worker? No Healthcare Agents on File Name Relationship Healthcare Agent Relationship Communication Hawa wheeler Spouse First Alternate Health Care Agent Care Teams Environmental Issues Instructor Relationship Specialty Start Date End Date Kenny Osborn MD [address] [place] [address] PCP - General 08/29/05 documented as of this encounter
--- OUTSIDE RECORDS SUMMARY | 2023-12-17 21:40 | External Medical Summary | Summary of Care ---
Author Name Unknown Organization [facility] Address [address] [place] [address] Phone [phone] Care Team Providers Care Marketing Teacher Name Role Phone Kenny Osborn MD Primary Care Provider [phone] Reason for Referral * Precert (Within 10 days (routine)) - Authorized Specialty Diagnoses / Procedures Referred By Contac t Referred To Contact Cardiac Studies Diagnoses Coronary atherosclerosis of autologous bypass graft Exertional angina (HCC) HTN, goal below 140/90 Dyspnea on exertion Procedures ECHO, COMPLETE (2D), TRANS-THORACIC Julisa Hernandez CRNP [address] [place] [address] Referral ID Status Reason Start Date Expiration Date V isits Requested Visits Authorized [id number] Authorized Precert 07/19/2023 999 999 Reason for Visit * Reason Comments Follow Up Encounter Details Date Type Department Care Team Description 07/19/2023 Office Visit Cardiology, [facility] [address] [place] [address] Julisa Hernandez CRNP [address] [place] [address] Coronary atherosclerosis of autologous bypass graft*; Exertional angina (HCC); HTN, goal below 140/90; Dyspnea on exertion Allergies Active Allergy Reactions Severity Noted Date Comments Diltiazem 06/21/1999 RASH Hydantoins Seizure High 04/18/2022 Phenytoin Sodium 01/19/1999 SEIZURES documented as of this encounter (statuses as of 07/23/2023) Medications Medication Sig Dispensed Refills Start Date [...] 08/02/2022 Active Ezetimibe 10 MG Oral Tablet (Zetia)Indications:Dy slipidemia, goal LDL below 70 TAKE 1 TABLET BY MOUTH EVERY DAY 90 Tablet 3 09/29/2022 Active amLODIPine Besylate 5 MG Oral Tablet (Norvasc)Indications: ASCVD (arteriosclerotic cardiovascular disease),Aortocoronar y bypass status,Dyslipidemia, goal LDL below 70 Take 1 Tablet (5 mg) by mouth in the morning and 1 Tablet (5 mg) before bedtime. 180 Tablet 3 09/29/2022 Active Spironolactone 25 MG Oral Tablet (Aldactone)Indication s:HTN, goal below 140/90,Aortocoronary bypass status Take 1 Tablet (25 mg) by mouth in the morning. 90 Tablet 3 10/03/2022 Active Furosemide 20 MG Oral Tablet (Lasix)Indications:Ch ronic systolic heart failure (HCC),HTN, goal below 140/90 Take 1 Tablet (20 mg) by mouth in the morning. 90 Tablet 3 10/13/2022 Active carBAMazepine 200 MG Oral Tablet (Tegretol)Indications [...] 180 Tablet 3 06/28/2023 Active Metoprolol Tartrate 25 MG Oral Tablet (Lopressor)Indication s:Coronary atherosclerosis of autologous bypass graft Take 1.5 Tablets by mouth in the morning and 1.5 Tablets at noon and 1.5 Tablets before bedtime. 135 Tablet 5 07/17/2023 Active documented as of this encounter (statuses as of 07/23/2023) Active Problems Problem Noted Date Prediabetes 03/27/2023 Hypertensive heart disease with chronic systolic congestive heart failure 03/13/2023 Chronic systolic heart failure 2 Last Assessment & Plan: Euvolemic. Checking wt daily Continue furosemide 20mg daily. BP 102/62--asymptomatic. Continues amlodipine, metoprolol Will continue to monitor by [facility] nursing staff. Iron deficiency anemia 04/03/[address] (myocardial infarction) 0 Dissection of right iliac [...] as of this encounter (statuses as of 07/23/2023) Resolved Problems Problem Noted Date Resolved Date [...] as of this encounter (statuses as of 07/23/2023) Immunizations Name Administration Dates Next Due COVID-19 mRNA, LNP-s, No Pre serve, 2-Dose Series (Adknowledge) 11/16/2021,02/14/2021,01/18/2021 COVID-19, LNP-s, No Preserve , Jv-sucrose, [...] Date Smoking Tobacco: Some Days Cigarettes 1 Last attempted to quit: 04/24/1980 Cigars Smokeless Tobacco: Never Tobacco Cessation:Ready to Q uit: Not Asked; Counseling Given: Not Answered Comments:1979Ha occasional cigar Alcohol Use Standard Drinks/Week [...] Sign Reading Time Taken Comments Blood Pressure 110/54 07/19/2023 1:25 PM EDT Pulse 80 07/19/2023 1:25 PM EDT Temperature - - Respiratory Rate 16 07/19/2023 1:25 PM EDT Oxygen Saturation 94% 07/19/2023 1:25 PM EDT Inhaled Oxygen Concentration - - Weight 64.1 kg (141 lb 6.4 oz) 07/19/2023 1:25 P M EDT Height - - Body Mass Index 25.05 01/18/2023 10:16 AM EST documented in this [...] as of this encounter Progress Notes * AYSHA Armando - 07/19/2023 1:30 PM EDT 07/19/2023 Cardiology Follow Up Primary Betting Agency Manager: Dr. 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 Recommended medical management, 04/04/2022 Class 3 angina pectoris Unable to take Ranexa due to use of Tegretol for seizure disorder. Hypertension Hyperlipidemia Abdominal aortic aneurysm 5.3 cm per duplex 05/2021- following with vascular Fibrotic changes of the lungs HPI: Ayla Wheeler is a 87 year old male presents for concerns that he is having a heart arrhythmia. Last seen in our office by AYSHA Stephens on 06/19/23 feeling well at that time. He presents today with his with concerns that he has felt "off" recently. He states that over the past few weeks he has felt an overwhelming sense of feeling "closed in on". He states that he continues with his typical angina symptoms, relatively unchanged. He states that over the past two to three weeks that he has had significant fatigue and shortness of breath with very little exertion. Reports that these symptoms feel very different that his chronic angina. His son is a medical sales specialist, and when stopping by the house, checked his blood pressure, heart rate and listed to his heart reporting that he sounded "very irregular" Denies any sensation of chest pain or pressure, dizziness, lightheadedness, or near syncope. BP remains well controlled. Remains compliant with all medication therapies. REVIEW OF SYSTEMS: See HPI for pertinent [...] 2 L/min(Oxygen) continuous . 1 Each 0 Isosorbide Mononitrate ER 120 MG Oral Tablet Extended Release 24 Hour Take by mouth 1 Tablet in themorning. 90 Tablet 3 Ezetimibe 10 MG Oral Tablet (Zetia) TAKE 1 TABLET BY MOUTH EVERY DAY 90 Tablet 3 amLODIPine Besylate 5 MG Oral Tablet (Norvasc) Take 1 Tablet (5 mg) by mouth in the morning and 1 Tablet (5 mg) before bedtime. 180 Tablet 3 Spironolactone 25 MG Oral Tablet (Aldactone) Take 1 Tablet (25 mg) by mouth in the morning. 90 Tablet 3 Furosemide 20 MG Oral Tablet (Lasix) Take 1 Tablet (20 mg) by mouth in the morning. 90 Tablet 3 carBAMazepine 200 MG Oral Tablet (Tegretol) 1 [...] needed for Pain, Chest. 180 Tablet 3 Metoprolol Tartrate 25 MG Oral Tablet (Lopressor) Take 1.5 Tablets by mouth in the morning and 1.5 Tablets at noon and 1.5 Tablets before bedtime. 135 Tablet 5 No current facility-administered medications for this visit. 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 residential - [place] Tobacco Use Smoking status: Some Days Packs/day: 1.00 Years: 28.00 Pack years: 28.00 Types: Cigarettes, Cigars Last attempt to quit: 04/24/1980 Years since quittin.2 Smokeless tobacco: Never Tobacco comments: 1979 Has [...] FAT Exercise Yes Comment: BIKE, X 23 CT, WALK 1 1/2 - 2 CT QD Bike Helmet Yes Seat Belt Yes Social History Narrative Exercise: Bicycle/ walks Social Determinants of Health Food Insecurity: No Food Insecurity Worried About Running Out of Food in the Last Year: Never true Ran Out of Food in the Last Year: Never true OBJECTIVE/PHYSICAL EXAMINATION: BP 110/54 (BP Site: Left Arm, BP Position: Sitting, BP Cuff Size: Regular) | Pulse 80 | Resp 16 | Wt 64.1 kg (141 lb 6.4 oz) | SpO2 94% | BMI 25.05 kg/m | BSA 1.69 m General: No acute distress. A+Ox3. HEENT: [...] leads Ventricular Rate: 72 Echo 04/18/2022 at [facility] LVEF 45-50%, anterior lateral wall hypokinetic Left atrium mildly dilated Grade 1 diastolic dysfunction Mild MR Mild TR Mild pulmonary hypertension with PA systolic pressure 55 mmHg Subtle improvement of anterior septal and apical wall motion noted. Cath 04/04/22 at [facility]: Coronary disease - hemodynamically significant [place] Vessels -Distal LMCA has 95% stenosis. Proximal LAD has 100% stenosis - Left circumflex has diffuse disease proximally upto 90%. There is competitive flow in the OM1 from LRA bypass - RCA has proximal 99% stenosis. Grafts - ALLEY to RCA is patent however, there is diffuse upto 80% stenosis in the [place] rPLA - CHASE to LAD is patent with diffuse 70% [place] LAD disease distal to the anastamosis - [id number] has proximal 80% disease in the LRA. Not amenable to PCI (technically) Left femoral artery access with 45 cm destination sheath. S/p Manual hold Echo 04/01/2022 at [facility] LVEF 45-50% with moderate hypokinesis of the mid apical, anterior and anterior septal yun along with the apical cap. Grade 2 diastolic dysfunction Mild aortic sclerosis without stenosis Mild MR Mild TR Echo 02/16/2022 at [facility] LVEF 55-60% Mild hypokinesis of the basal [...] perfusion imaging response is similar. Echo at [facility] 10/12/2021 LVEF 50-55% with normal wall motion. [...] right coronary or left circumflex arteries. ASSESSMENT/PLAN: 87 year old year old male 1. Coronary atherosclerosis of autologous bypass graft -Symptoms stable/unchanged. Patient continues his same course of therapy for angina with relief -Recent cardiac cath as noted above showing obstructive disease not amendable to PCI -Continue GDMT with ASA 81mg, Plavix, Toprol xl, Imdur, Crestor and Zetia - EKG - ECHO, COMPLETE (2D), TRANS-THORACIC; Future - EXTERNAL EKG 8 TO 15 DAYS; Future 2. Exertional angina (HCC) -No changes in medication therapies. - EKG - ECHO, COMPLETE (2D), TRANS-THORACIC; Future - EXTERNAL EKG 8 TO 15 DAYS; Future 3. HTN, goal below 140/90 -Continue Toprol xl, Amlodipine, Imdur, Furosemide and Spironolactone - EKG - ECHO, COMPLETE (2D), TRANS-THORACIC; Future - EXTERNAL EKG 8 TO 15 DAYS; Future 4. Dyspnea on exertion -Etiology unclear; multifactorial given his degree of CAD with recent cath. -Obtain echo to assess overall structure and function given his symptoms. -Will obtain 14 day zio to assess for possible arrhythmia and reason for his symptoms. - ECHO, COMPLETE (2D), TRANS-THORACIC; Future - EXTERNAL EKG 8 TO 15 DAYS; Future DISPOSITION: Follow up 5 weeks or if symptoms worsen/fail to improve. All questions were answered to the patients satisfaction. Patient advised to report to ED with any and all emergencies. The patient agrees to the above plan and will call with additional questions or concerns. [facility], [address] [address] I spent a total of 43 minutes on the date of service in preparation, delivery, and documentation ofthe care provided to Ayla Wheeler excluding any time spent in the performance of separately billed services. This chart was completed in part utilizing [employer] Speech Voice Recognition Software. Grammatical errors, random word insertions, pronoun errors, and incomplete sentences are an occasional consequence of this system due to software limitations, ambient noise, and hardware issues. Any formal questions or concerns about the content, text, or information contained within the body of this dictation should be directly addressed to the provider for clarification. documented in this encounter Procedure Notes * Matt Garay DO - 07/19/2023 1:35 PM EDTAssociated Order(s): EKG REASON FOR STUDY: SOB, chest pain CONCLUSIONS: Sinus rhythm with 1st degree AV block with occasional Premature ventricular complexes Marked ST abnormality, possible lateral subendocardial injury Abnormal ECG When compared with ECG of 05-JUN-2022 15:17, T wave inversion more evident in Inferior leads T wave inversion now evident in Anterior leads Ventricular Rate: 72 Atrial Rate: 72 MS Interval: 324 QRS Duration: 90 QT/QTc: 382/418 ms P-R-T [place]: 43 : 55 : 217 degrees documented in this encounter Nursing Notes * Tiff Michaels CMA - 07/19/2023 1:19 PM EDT Examination Room: 4 Name: Ayla Wheeler Date of : (1935). Reason for Visit: f/u Interim Hospitalization(s): none Problems/Concerns: denies Chest Pain/SOB: Denies CP. Occasional chest tightness. Feels more SOB with daily activities. Statesit is worse in the PM. Utilizing SL NTG approx once/day. [facility] Discussed: No My [facility] is a way you can talk to your provider online through e-mail. Would you like to sign up? I can activate it for you? ALREADY ACTIVE Patient was instructed to not get up on the exam table until directed and assisted by their provider; patient is to remain seated in the chair/ wheelchair/ exam table for fall prevention and safety reasons. Patient is aware to have assistance to step down off exam table with personnel. Patient voiced full comprehension of instructions. documented in this encounter Miscellaneous Notes * Result Encounter Note - AYSHA Armando - 07/20/2023 12:39 PM EDT Reviewed in office with patient. Continue with care plan as documented documented in this encounter Plan of Treatment Upcoming Encounters Date Type Specialty Care Team Description 12/11/2023 Nurse Only Ancillary Nurse [facility] [address] [place] [address] [place] [address] Scheduled Orders Name Type Priority Associated Diagnoses Orde r Schedule ECHO, COMPLETE (2D), TRANS-THORACIC Echocardiology Routine Coronary atherosclerosis of autologous bypass graft Exertional angina (HCC) HTN, goal below 140/90 Dyspnea on exertion Expected: 07/19/2023 (Approximate), Expires: 2025 EXTERNAL EKG 8 TO 15 DAYS Holter Routine Coronary atherosclerosis of autologous bypass graft Exertional angina (HCC) HTN, goal below 140/90 Dyspnea on exertion Expected: 07/19/2023 (Approximate), Expires: 07/19/2024 Health Maintenance Due Date Last Done Comments DISCUSS TOBACCO CESSATION (REFER TO SMARTSET #[id number]) 1935 *BISPHONATE OR OTHER ACCEPTABLE MEDICATION NEEDED FOR OSTEOPOROSIS (REFER TO SMARTSET #1146) 12/09/2017 DXA Scan 11/15/2022 11/15/2020, 0801/2016, 05/18/2014, Additional history exists DTaP,Tdap,and Td Vaccines (2 - Td or Tdap) 04/01/2023 04/01/2013, 04/11/2010, 12/10/1998 AAA Monitoring 04/07/2023 04/07/2022, 05/20, 06/30/2020, Additional history exists Influenza Vaccine (FLU shot) (#1) 2023 08/31/2022, 08/11/2021, 08/11/2021, Additional history exists Depression Screening, Annual for Pts 12 and Over 12/11/2023 12/11/2022 HbA1c 03/19/2024 03/19/2023, 03/19, 12/10/1998 Albumin/Creatinine Ratio 05/25/2024 05/25/2021, 12/2018 Hepatitis B Completed 06/21/1999, 01/1999, 12/10/1998 Pneumococcal Vaccine: 65+ Years Completed 04/20/2015, 03/18/2009, 12/05/2001 Zoster Vaccines Completed 12/06/2018, 05/19, 12/23/2008 VITAMIN D LEVEL ONCE IN A LIFETIME-USE SMARTSET# [id number] Completed 05/25/2021, 11/20/2018, 07/13/2017, Additional history exists COVID-19 Vaccine Completed 08/22/2022, 06/2022, 11/16/2021, Additional history exists GARDASIL-HPV IMMUNIZATION SERIES Aged Out No longer eligible based on patient's age to complete this topic MENINGOCOCCAL (MENACTRA/MENVEO) Aged Out No longer eligible based on patient's age to complete this topic documented as of this encounter Medical Devices Not on filedocumented as of this encounter Procedures Procedure Name Priority Date/Time Associated Diagnosis Comments MS ECG ROUTINE ECG W/LEAST 12 LDS W/I&R Routine 07/19/2023 1:35 PM EDT Coronary atherosclerosis of autologous bypass graft Exertional angina (HCC) HTN, goal below 140/90 documented in this encounter Results * EKG (07/19/2023 1:35 PM EDT) 07/19/2023 1:35 PM EDT Procedure Note Matt Garay, - 07/19/2023 1:35 PM EDT REASON FOR STUDY: SOB, chest pain CONCLUSIONS: Sinus rhythm with 1st degree AV block with occasional Prematureventricular complexes Marked ST abnormality, possible lateral subendocardial injury Abnormal ECG When compared with ECG of 05-JUN-2022 15:17, T wave inversion more evident in Inferior leads T wave inversion now evident in Anterior leads Ventricular Rate: 72 Atrial Rate: 72 MS Interval: 324 QRS Duration: 90 QT/QTc: 382/418 ms P-R-T [place]: 43 : 55 : 217 degrees Julisa OLMSTEAD EKG [facility] documented in this encounter Visit Diagnoses Diagnosis Coronary atherosclerosis of autologous bypass graft- Primary Coronary atherosclerosis of unspecified type of bypass graft Exertional angina (HCC) Other and unspecified angina pectoris HTN, goal below 140/90 Unspecified essential hypertension Dyspnea on exertion Other dyspnea and respiratory abnormality documented in this encounter Advance Directives Documents on File Type Date Recorded 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 No Full Code 06/08/2010 12:41 AM 06/08/2010 9:05 AM This order reflects the patients wishes and were consensually agreed upon. Question Answer Comments Discussion of Advance Directives occurred with: Patient Does the patient have a Living Will? No Does the patient have Health Care Power of Margin Trimmer? No Healthcare Agents on File Name Relationship Healthcare Agent Relationship Communication Hawa wheeler Spouse First Alternate Health Care Agent Care Teams Marketing Teacher Relationship Specialty Start Date End Date Kenny Osborn MD [address] [place] [address] PCP - General 08/29/05 documented as of this encounter
--- OUTSIDE RECORDS SUMMARY | 2023-12-17 21:40 | External Medical Summary | Summary of Care ---
Author Name Unknown Organization [facility] Address [address] [place] [address] Phone [phone] Care Team Providers Care Lapping Machine Tender Name Role Phone Kenny Osborn MD Primary Care Provider [phone] Reason for Visit * Reason Comments Follow Up Encounter Details Date Type Department Care Team Description 09/03/2023 Telemedicine [facility] [address] [place] [address] Taisha Workman MD [address] [place] [address] COVID-19 virus infection*; Coronary atherosclerosis of autologous bypass graft; Need for RSV vaccination Allergies Active Allergy Reactions Severity Noted Date Comments Diltiazem 06/21/1999 RASH Hydantoins Seizure High 04/18/2022 Phenytoin Sodium 01/19/1999 SEIZURES documented as of this encounter (statuses as of 09/03/2023) Medications Medication Sig Dispensed Refills Start Date [...] as of this encounter (statuses as of 09/03/2023) Active Problems Problem Noted Date Prediabetes 03/27/2023 Hypertensive heart disease with chronic systolic congestive heart failure 03/13/2023 Chronic systolic heart failure 2 Last Assessment & Plan: Euvolemic. Checking wt daily Continue furosemide 20mg daily. BP 102/62--asymptomatic. Continues amlodipine, metoprolol Will continue to monitor by [facility] nursing staff. Iron deficiency anemia 04/03/2022 Old [place] (myocardial infarction) 0 Dissection of right iliac [...] as of this encounter (statuses as of 09/03/2023) Resolved Problems Problem Noted Date Resolved Date [...] as of this encounter (statuses as of 09/03/2023) Immunizations Name Administration Dates Next Due COVID-19 mRNA, LNP-s, No Pre serve, 2-Dose Series ([employer]) 11/16/2021,02/14/2021,01/18/2021 COVID-19, LNP-s, No Preserve , Jv-sucrose, Ages 12+ (DidLog) 04/26/2022 Covid-19, Mrna, Lnp-s, Pf, B ivalent, [...] as of this encounter Progress Notes * Taisha Workman MD - 09/03/2023 11:06 AM EDT ASSESSMENT / PLAN: Ayla Wheeler is a 88 year old male with PMHx CAD - last event April 2022 / angina / AAA / - here for f/u covid A/P: This is day 6 of illness and improving - reviewed supportive care like steroid containing nasal sprays vs saline spray, antihistamine, and pushing fluids. Did not get molnupiravir yet, [facility] didn't have it ready till yesterday. Advised not to take thatnow, but keep med for next covid illness. In two weeks or more, should consider getting vaccinated against RSV as well. Script sent. COVID-19 virus infection (Primary) Coronary atherosclerosis of autologous bypass graft Need for RSV vaccination - Arexvy 120 MCG/0.5ML Intramuscular Suspension Reconstituted (RSVPreF3 Vac Recomb Adjuvanted); Inject intramuscularly in to large muscle like the deltoid. Subjective: Ayla Wheeler is a 88 year old male. No chief complaint on file. Patient location: HOME. I was in a hospital or clinic location. After connecting through [employer],patient was verified with two unique identifiers. Patient (or authorized legal software support representative) was then informed that this was a Telemedicine visit and being conducted confidentially over secure lines. Methods to assure confidentiality were taken. Patient acknowledged consent and understanding of pr ivacy and security of the Telemedicine visit. The patient agreed to participate. HPI: This is day 6 of illness - covid test positive, endorses: fevers are abating, feels good today. This morning's temp 94 degrees. Last antipyretic Arms do hurt, takes a nitro and it does go away Had his last covid booster last Sunday Did not get molnupiravir yet, [facility]ara didn't have it ready till yesterday. 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 1 Each 0 MULTIVITAMIN TABS OR one pill each day [...] Pain, Chest. 180 Tablet 3 Metoprolol Tartrate 50 MG Oral Tablet (Lopressor) Take 1 Tablet by mouth in the morning and 1 Tablet at noon and 1 Tablet in the evening. 60 Tablet 5 Molnupiravir 200 MG Oral Capsule Take 4 Capsules by mouth in the morning and 4 Capsules before bedtime. 40 Capsule 0 No current facility-administered medications for this visit. Objective: General: No acute distress. Neuro: Alert Pleasant & interactive. Respiratory: Good inspiratory effort, no labored breathing. HEENT: Conjunctivae appear clear. No swelling noted face or lips. Skin: No rash visible on exposed skin areas, normal coloration & appears dry. Psych: Normal affect. Fluent speech. Taisha Workman MD [address] [address] documented in this encounter Plan of Treatment Upcoming Encounters Date Type Specialty Care Team Description 10/01/2023 Cardiac Studies Cardiac Studies 10/08/2023 Office Visit Cardiology Julisa Hernandez CRNP [address] [place] [address] 12/11/2023 Nurse Only Ancillary [place], [facility] [address] [place] [address] Health Maintenance Due Date Last Done Comments DISCUSS TOBACCO CESSATION (REFER TO SMARTSET #[id number]) 1937 *BISPHONATE OR OTHER ACCEPTABLE MEDICATION NEEDED [...] D LEVEL ONCE IN A LIFETIME-USE SMARTSET# [id number] Completed 05/25/2021, 11/20/2018, 07/13/2017, Additional history exists [...] Visit Diagnoses Diagnosis COVID-19 virus infection- Primary Coronary atherosclerosis of autologous bypass graft Coronary atherosclerosis of unspecified type of bypass graft Need for RSV vaccination Need for prophylactic vaccination and inoculation against respiratory syncytial virus documented in this encounter Advance Directives Documents on File Type Date Recorded Patient Catering Assistant Bambi JUNIOR 01/29/2023 [place] [facility] FOR LIFE-SUSTAINING TREATMENT Latest Code Status on [...] the patient have Health Care Power of Television Repairman? No Full Code 06/08/2010 12:41 AM 06/08/2010 9:05 AM This order reflects the patients wishes and were consensually agreed upon. Question Answer Comments Discussion of Advance Directives occurred with: Patient Does the patient have a Living Will? No Does the patient have Health Care Power of Television Repairman? No Healthcare Agents on File Name Relationship Healthcare Agent Relationship Communication Hawa wheeler Spouse First Alternate Health Care Agent Care Teams Lapping Machine Tender Relationship Specialty Start Date End Date Kenny Osborn MD [address] [place] [address] PCP - General 08/29/05 documented as of this encounter
--- OUTSIDE RECORDS SUMMARY | 2023-12-17 21:40 | External Medical Summary | Summary of Care ---
Author Name Unknown Organization [facility] Address [address] [place] [address] Phone [phone] Care Team Providers Care Drafter Castings Name Role Phone Kenny Osborn MD Primary Care Provider [phone] Reason for Visit * Reason Onset Date Comments Advice 09/07/2023 Leg weakness Encounter Details Date Type Department Care Team (Late st Contact Info) Description 09/07/2023 Telephone [facility] [address] [place] [address] Kenny Osborn MD [address] [place] [address] Advice (Leg weakness) Allergies Active Allergy Reactions Criticality Noted Date [...] mRNA, LNP-s, No Pre serve, 2-Dose Series ([employer]) 11/16/2021,02/14/2021,01/18/2021 COVID-19, LNP-s, No Preserve , Jv-sucrose, Ages 12+ (Pfizer) 04/26/2022 Covid-19, Mrna, Lnp-s, Pf, B ivalent, 30 Mcg, IM, 12 yrs and above (Pfizer) 08/22/2022 Diptheria/Tetanus (Adult) 12/10/1998 Hepatitis A Vaccine 06/21/1999,12/10/1998 Hepatitis B Vaccine 06/21/1999,01/19/1999,1998 Pneumococcal Conjugate Vacc, 13 Valent (Prevnar) 04/20/2015 Pneumococcal Polysaccharide PPV23 (Pneumovax) 03/18/2009,12/05/2001 SEASONAL INFLUENZA, PF, 6 M & Above, [...] Miscellaneous Notes * Telephone Encounter - CHELSIE Chery - 09/10/2023 9:36 AM EDT Patient declined scheduling. Patient states that he is doing fine and he doesn't need an appointment. 09/10/2023 * Telephone Encounter - CHELSIE Monahan - [...] EST Cardiac Studies Cardiac Studies, [facility] [address] [facility] [place] [address] 10/08/2023 10:30 AM EST Office Visit Cardiology, [facility] [address] [facility] [place] [address] Julisa Hernandez CRNP [address] [facility] [place] [address] 12/11/2023 1:00 PM EST Nurse Only Ancillary Department, [facility] [address] [place] [address] [place], [facility] [address] [place] [address] Health Maintenance Due Date Last Done Comments [...] D LEVEL ONCE IN A LIFETIME-USE SMARTSET# [id number] Completed 05/25/2021, 11/20/2018, 07/13/2017, Additional history exists [...] Documents on File Type Date Recorded Patient Price Changer Expl anation POLST 01/29/2023 [place] [facility] [...] the patient have Health Care Power of Renal Dialysis Rn? No Full Code 06/08/2010 12:41 AM 06/08/2010 9:05 AM This order reflects the patients wishes and were consensually agreed upon. Question Answer Comments Discussion of Advance Directives occurred with: Patient Does the patient have a Living Will? No Does the patient have Health Care Power of Renal Dialysis Rn? No Healthcare Agents on File Name Relationship Healthcare Agent Relationship Communication Hawa wheeler Spouse First Alternate Health Care Agent Care Teams Drafter Castings Relationship Specialty Start Date End Date Kenny Osborn MD [address] [facility] [place] [address] PCP - General 08/29/05 documented as of this encounter
--- OUTSIDE RECORDS SUMMARY | 2023-12-17 21:41 | External Medical Summary | Summary of Care ---
Author Name Unknown Organization [facility] Address [address] [place] [facility] [place] [address] Phone [phone] Care Team Providers Care Ssis Developer Name Role Phone Kenny Osbonr MD Primary Care Provider Reason for Visit * Reason Onset Date Comments Medication Refill 06/27/2023 Encounter Details Date Type Department Care Team Description 06/27/2023 Refill Cardiology, [facility] [address] [place] [address] Dipti Pina CRNP [address] [place] [address] Allergies Active Allergy Reactions Severity Noted Date Comments Diltiazem 06/21/1999 RASH Hydantoins Seizure High 04/18/2022 Phenytoin Sodium 01/19/1999 SEIZURES documented as of this encounter (statuses as of 06/28/2023) Medications Medication Sig Dispensed Refills Start Date [...] times daily 180 Tablet 3 11/22/2022 Active Metoprolol Tartrate 25 MG Oral Tablet (Lopressor)Indicatio ns:Coronary atherosclerosis of autologous bypass graft Take 1.5 Tablets by mouth in the morning and 1.5 Tablets at noon and 1.5 Tablets before bedtime. 135 Tablet 5 02/02/2023 Active Clopidogrel Bisulfate 75 MG Oral Tablet [...] Pain, Chest. 180 Tablet 3 06/28/2023 Active Nitroglycerin 0.4 MG Sublingual Tablet Sublingual (Nitrostat) Place 1 Tablet under the tongue every 5 minutes as needed for Pain, Chest. 180 Tablet 3 01/25/2023 3 Discontinu ed(Refill) documented as of this encounter (statuses as of 06/28/2023) Active Problems Problem Noted Date Prediabetes 03/27/2023 Hypertensive heart disease with chronic systolic congestive heart failure 03/13/2023 Chronic systolic heart failure 2 Last Assessment & Plan: Euvolemic. Checking wt daily Continue furosemide 20mg daily. BP 102/62--asymptomatic. Continues amlodipine, metoprolol Will continue to monitor by [facility] nursing staff. Iron deficiency anemia 04/03/2022 Old [place] (myocardial infarction) 0 Dissection of right iliac [...] as of this encounter (statuses as of 06/28/2023) Resolved Problems Problem Noted Date Resolved Date [...] as of this encounter (statuses as of 06/28/2023) Immunizations Name Administration Dates Next Due COVID-19 mRNA, LNP-s, No Pre serve, 2-Dose Series ([employer]) 11/16/2021,02/14/2021,01/18/2021 COVID-19, LNP-s, No Preserve , Jv-sucrose, Ages 12+ (Pfizer) 04/26/2022 Covid-19, Mrna, Lnp-s, Pf, B ivalent, 30 Mcg, IM, 12 yrs and above ([employer]) 08/22/2022 Pneumococcal Conjugate Vacc, 13 Valent (Prevnar) 04/20/2015 Pneumococcal Polysaccharide PPV23 (Pneumovax) 03/18/2009 Seasonal Influenza, Quadriva lent Hd (Fluzone Hd) 08/31/2022,08/11/2021 Seasonal Influenza, Quadriva lent, No Preserve, 6 Mons & Above, IM 07/22/2019,08/22/2018,08/14/2017 Seasonal Influenza, Quadriva lent, No Preserve, IM [...] Miscellaneous Notes * Telephone Encounter - AYSHA Kirk - 06/28/2023 8:00 AM EDTSigned Prescriptions: Disp Refills Nitroglycerin 0.4 MG Sublingual Tablet Sub*180 Ta*3 Sig: Place 1 Tablet under the tongue every 5 minutes as needed for Pain, Chest. Authorizing Provider: DIPTI PINA * Telephone Encounter - Poncho Castañeda RN - 06/28/2023 7:02 AM EDTPending Prescriptions: Disp Refills Nitroglycerin 0.4 MG Sublingual Tablet Sub*180 Ta*3 Sig: Place 1 Tablet under the tongue every 5 minutes as needed for Pain, Chest. * Telephone Encounter - Poncho Castañeda RN - 06/28/2023 7:01 AM EDT Pending Prescriptions: Disp Refills Nitroglycerin 0.4 MG Sublingual Tablet Bonilla*180 Ta*3 Sig: Place 1 Tablet under the tongue every 5 minutes as needed for Pain, Chest. Last Visit: 06/19/2023 (in office), Visit date not found (telemedicine) Next Visit: Visit date not found Last medication order date: 01/25/2023 Have you choosen a preferred pharm?? 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 ([facility]) G40.309 Elevated prostate specific antigen (PSA) R97.20 Erectile dysfunction N52.9 Vitamin D deficiency E55.9 AAA (abdominal aortic aneurysm) ([facility]) I71.40 HTN, goal below 150/90 I10 Eczema L30.9 Senile osteoporosis M81.0 Coronary atherosclerosis of autologous bypass graft I25.810 Old [place] (myocardial infarction) I25.2 Dissection of right iliac artery ([facility]) I77.72 Elevated homocysteine R79.89 Iron deficiency anemia D50.9 Chronic systolic heart failure ([facility]) I50.22 Hypertensive heart disease with chronic systolic congestive heart failure ([facility]) I11.0, I50.22 Prediabetes R73.03 Labs: Lab Results Component Value Date/Time CREATININE - [facility] 0.7 01/18/2023 11:16 AM CREATININE - [facility] 0.8 08/02/2020 07:26 AM CREATININE ISTAT 0.8 10/09/2019 11:15 AM CREATININE, RANDOM URINE - [facility] 217 05/25/2021 08:25 AM CREATININE, RANDOM URINE - [facility] 297 11/20/2018 08:23 AM Lab Results Component Value Date/Time POTASSIUM - [facility] 3.7 01/18/2023 11:16 AM POTASSIUM - [facility] 4.5 08/02/2020 07:26 AM POTASSIUM, WHOLE BLOOD - [facility] 3.6 02/25/1999 10:50 AM Lab Results Component Value Date/Time TSH - [facility] 1.88 10/31/2017 11:12 AM Lab Results Component Value Date/Time LDL CHOLESTEROL (CALCULATED) - [facility] 77 03/19/2023 12:10 PM LDL CHOLESTEROL (CALCULATED) - [facility] 76 04/04/2022 04:00 AM LDL CHOLESTEROL (CALCULATED) - [facility] 90 08/02/2020 07:26 AM LDL CHOLESTEROL (CALCULATED) - [facility] 96 10/31/2019 07:38 AM LDL CHOLESTEROL (DIRECT MEASURE) - [facility] NOT APPLICABLE 08/02/2020 07:26 AM LDL CHOLESTEROL (DIRECT MEASURE) - [facility] NOT APPLICABLE 11/20/2018 08:16 AM LDL CHOLESTEROL (DIRECT MEASURE) - [facility] 104 09/12/2004 09:03 AM LDL CHOLESTEROL (DIRECT MEASURE) - [facility] 137 (H) 10/01/2002 08:20 AM Lab Results Component Value Date/Time ALT - [facility] 21 01/18/2023 11:16 AM ALT - [facility] 15 08/02/2020 07:26 AM Hemoglobin AIC Results: Lab Results Component Value Date/Time HEMOGLOBIN A1C - [facility] 6.0 (H) 03/19/2023 12:10 PM HEMOGLOBIN A1C - [facility] 6.0 (H) 04/04/2022 04:00 AM HEMOGLOBIN A1C - [facility] 5.6 12/10/1998 03:00 PM documented in this encounter Plan of Treatment Upcoming Encounters Date Type Specialty Care Team Description 12/11/2023 Nurse Only Nurse [facility] [address] [place] [address] Health Maintenance Due Date Last Done Comments [...] D LEVEL ONCE IN A LIFETIME-USE SMARTSET# [id number] Completed 05/25/2021, 11/20/2018, 07/13/2017, Additional history exists [...] Documents on File Type Date Recorded 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 No Full Code 06/08/2010 12:41 AM 06/08/2010 9:05 AM This order reflects the patients wishes and were consensually agreed upon. Question Answer Comments Discussion of Advance Directives occurred with: Patient Does the patient have a Living Will? No Does the patient have Health Care Power of Occup Ther? No Healthcare Agents on File Name Relationship Healthcare Agent Relationship Communication Hawa wheeler Spouse First Alternate Health Care Agent Care Teams Ssis Developer Relationship Specialty Start Date End Date Kenny Osborn MD [address] [place] [id number] PCP - General 08/29/05 documented as of this encounter
--- OUTSIDE RECORDS SUMMARY | 2023-12-17 21:41 | External Medical Summary | Summary of Care ---
Author Name Unknown Organization [facility] Address [address] [facility] [address] Phone [phone] Care Team Providers Care Slide Developer Name Role Phone Kenny Osborn MD Primary Care Provider [phone] Reason for Visit * Reason Onset Date Comments Medication Refill 07/17/2023 Encounter Details Date Type Department Care Team Description 07/17/2023 Refill Cardiology, [facility] [address] [place] [address] Dipti Pina CRNP [address] [place] [address] Coronary atherosclerosis of autologous bypass graft Allergies Active Allergy Reactions Severity Noted Date Comments Diltiazem 06/21/1999 RASH Hydantoins Seizure High 04/18/2022 Phenytoin Sodium 01/19/1999 SEIZURES documented as of this encounter (statuses as of 07/17/2023) Medications Medication Sig Dispensed Refills Start Date [...] before bedtime. 135 Tablet 5 07/17/2023 Active Metoprolol Tartrate 25 MG Oral Tablet (Lopressor)Indicatio ns:Coronary atherosclerosis of autologous bypass graft Take 1.5 Tablets by mouth in the morning and 1.5 Tablets at noon and 1.5 Tablets before bedtime. 135 Tablet 5 02/02/2023 3 Discontinu ed(Refill) documented as of this encounter (statuses as of 07/17/2023) Active Problems Problem Noted Date Prediabetes 03/27/2023 Hypertensive heart disease with chronic systolic congestive heart failure 03/13/2023 Chronic systolic heart failure 2 Last Assessment & Plan: Euvolemic. Checking wt daily Continue furosemide 20mg daily. BP 102/62--asymptomatic. Continues amlodipine, metoprolol Will continue to monitor by [facility] nursing staff. Iron deficiency anemia 04/03/2022 Old [place] (myocardial infarction) 0 Dissection of right iliac [...] as of this encounter (statuses as of 07/17/2023) Resolved Problems Problem Noted Date Resolved Date [...] as of this encounter (statuses as of 07/17/2023) Immunizations Name Administration Dates Next Due COVID-19 mRNA, LNP-s, No Pre serve, 2-Dose Series ([employer]) 11/16/2021,02/14/2021,01/18/2021 COVID-19, LNP-s, No Preserve , Jv-sucrose, Ages 12+ ([employer]) 04/26/2022 Covid-19, Mrna, Lnp-s, Pf, B ivalent, 30 Mcg, IM, 12 yrs and above ([employer]) 08/22/2022 Pneumococcal Conjugate Vacc, 13 Valent (Prevnar) [...] * Telephone Encounter - AYSHA Kirk - 07/17/2023 1:55 PM EDTSigned Prescriptions: Disp Refills Metoprolol Tartrate 25 MG Oral Tablet (Lop*135 Ta*5 Sig: Take 1.5 Tablets by mouth in the morning and 1.5 Tablets at noon and 1.5 Tablets before bedtime. Authorizing Provider: DIPTI PINA * Telephone Encounter - Poncho Castañeda RN - 07/17/2023 1:45 PM EDT Pending Prescriptions: Disp Refills Metoprolol Tartrate 25 MG Oral Tablet (Lo*135 Ta*5 Sig: Take 1.5 Tablets by mouth in the morning and 1.5 Tablets at noon and 1.5 Tablets before bedtime. Last Visit: 06/19/2023 (in office), Visit date not found (telemedicine) Next Visit: Visit date not found Last medication order date: 02/02/2023 Have you choosen a preferred pharm?? 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 ([facility]) G40.309 Elevated prostate specific antigen (PSA) R97.20 Erectile dysfunction N52.9 Vitamin D deficiency E55.9 AAA (abdominal aortic aneurysm) ([facility]) I71.40 HTN, goal below 150/90 I10 Eczema L30.9 Senile osteoporosis M81.0 Coronary atherosclerosis of autologous bypass graft I25.810 Old [place] (myocardial infarction) I25.2 Dissection of right iliac artery ([facility]) I77.72 Elevated homocysteine R79.89 Iron deficiency anemia D50.9 Chronic systolic heart failure ([facility]) I50.22 Hypertensive heart disease with chronic systolic congestive heart failure ([facility]) I11.0, I50.22 Prediabetes R73.03 Labs: Lab Results [...] 12/11/2023 Nurse Only Nurse [facility] [address] [place] [address] Health Maintenance Due Date Last Done Comments [...] D LEVEL ONCE IN A LIFETIME-USE SMARTSET# [id number] Completed 05/25/2021, 11/20/2018, 07/13/2017, Additional history exists [...] as of this encounter Visit Diagnoses Diagnosis Coronary atherosclerosis of autologous bypass graft Coronary atherosclerosis of unspecified type of bypass graft documented in this encounter Advance Directives Documents on File Type Date Recorded Patient Water Systems Engineer Expl 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 No Full Code 06/08/2010 12:41 AM 06/08/2010 9:05 AM This order reflects the patients wishes and were consensually agreed upon. Question Answer Comments Discussion of Advance Directives occurred with: Patient Does the patient have a Living Will? No Does the patient have Health Care Power of Air And Water Filler? No Healthcare Agents on File Name Relationship Healthcare Agent Relationship Communication Hawa wheeler Spouse First Alternate Health Care Agent Care Teams Slide Developer Relationship Specialty Start Date End Date Kenny Osborn MD [address] [place], [place] [id number] PCP - General 08/29/05 documented as of this encounter
[2023-12-17] MEDS: EZETIMIBE 10 MG TAB PO SCH (23:00)
[2023-12-17] MEDS: NITROGLYCERIN 2% OINTMENT 30GM TUBE EXT SCH (23:00)
[2023-12-17] MEDS: carBAMazepine 200 MG TABLET PO SCH (23:01)
[2023-12-17] MEDS: amLODIPine BESYLATE 5 MG TAB PO SCH (23:01)
[2023-12-17] MEDS: METOPROLOL TARTRATE 50 MG TAB PO SCH (23:01)
[2023-12-17 23:33] LABS: ANTI-Xa, UFH(UnfractionatedHep 0.18 IU/ml (0.3-0.7)
[2023-12-18] MEDS: HEPARIN SOD (PORCINE) 1000 UNIT/ML IV ONE (00:14)
[2023-12-18 05:18] LABS: Hematocrit (blood only) 34.2 % (42.0-52.0); Mean Corpuscular Hemoglobin 34.8 pg (25.0-34.0); Mean Corpuscular Hgb Conc 35.1 g/dL (32.0-36.0); Mean Corpuscular Volume 99.1 fL (80.0-100.0); Mean Platelet Volume 9.3 fL (9.4-12.4); Platelet Count 155 K/uL (130-400); RDW Coefficient of Variation 13.7 % (11.5-14.5); RDW Standard Deviation 50.4 fL (36.4-46.3); Red Blood Count 3.45 M/uL (4.70-6.10)
[2023-12-18 05:25] LABS: BUN Creatinine Ratio 20.8 (10-20); Calcium 9.5 mg/dl (8.6-10.3); Creatinine Clr Calc Pharmacy 77.3 ml/min; Est GFR (Non-African American) 95.8 ml/min; Potassium 3.5 mmol/L (3.5-5.1)
[2023-12-18 05:35] LABS: Troponin I High Sensitivity 216.6 pg/ml (0-20)
[2023-12-18 05:42] LABS: ANTI-Xa, UFH(UnfractionatedHep 0.54 IU/ml (0.3-0.7)
[2023-12-18 06:04] LABS: Folate (Folic Acid),Ser orPlas 13.27 ng/ml (>5.38)
[2023-12-18] MEDS ORDERED: ISOSORBIDE MONO EXTENDED REL 60 MG TABCR PO SCH (06:30)
--- NOTE | 2023-12-18 09:03 | Cardiology Progress Note ---
Date of Service December 18, 2023 Assessment & Plan (1) Unstable angina pectoris: Plan Assessment: 88 year old male with longstanding history of complex CAD s/p 3 vessel CABG in 1998 with recent cardiac catheterization showing severe [place] disease, diffuse graft disease and no amendable targets for revascularization. 1. Unstable Angina -Continue his current OP medication regimen including ASA 81mg, Plavix 75mg, Amlodipine 5mg daily, Metoprolol tartrate 50mg TID, spironolactone 25mg Daily, and crestor 40mg Daily. -Continue topical nitro patch at this time, may transition to topical nitrate in lieu of prior treatment with Imdur -Echocardiogram pending. further recommendations with medication management pending echo. -Continue heparin gtt today. Case has been discussed with Dr. Garay. Further recommendations regarding plan of care as per his assessment. I spent a total of 30 minutes on the date of service in preparation, delivery, documentation of the care provided to the patient excluding any time spent in the performance of separately billed services. AYSHA Kumar [facility] Cardiology [facility] Admission and Anticipated Discharge Date Admission Date: December 17, 2023 Supervising Physician Co-Signing Physician Notes Attending attestation: I have reviewed the advanced practitioner's documentation, and agree with, and take responsibility for the plan of care. Subjective: Patient describes feeling well from a chest pain standpoint, without recurrence overnight last night. His troponin did trend up, not unexpectedly. Chest pain-free. Exam: Pulmonary: Mild Rales bilaterally at the bases Data: EKG performed today 12/18/2023 at 6:01 AM revealed sinus rhythm at 62 bpm with long first-degree AV block, ST segment depression in the precordial leads as well as the inferior and lateral leads, relatively unchanged from his recent baseline dating back to 2021 . High-sensitivity troponin 12.6--> 67.8--> 216.6 Impression/ Plan: Unstable angina Heart failure with mildly reduced ejection fraction Patient has a history of mild left ventricular systolic dysfunction, LVEF previously in the range of 45 to 50%. Repeat echocardiogram has been performed and will be reviewed. He notably has mild rales today. Continue current medications including topical nitroglycerin, and heparin infusion, chronic dual antiplatelet therapy with aspirin and clopidogrel. I do not think there is room to titrate his metoprolol tartrate any further from the 50 mg p.o. 3 times daily that he is on at home. Proceed with furosemide 20 mg x 1 dose, continue spironolactone, supplement potassium. Remain on unfractioned heparin to likely complete a 48-hour course. I spent a total of 25 minutes coordinating, documenting, and providing care for this patient excluding time spent in the performance of separately billed services or time spent by another provider. Matt Garay DO Subjective 12/18/23: patient seen and examined in follow up. He is out of bed to the chair and feeling quite well. States that he has had no further episodes of chest pain, no dyspnea, and has a good appetite this morning. Review of telemetry overnight shows SR with 1st degree AV Block and occasional PVC's, rate 60-70's Review of notes, labs and diagnostics completed. Patient remains on heparin gtt and Nitro paste in place. Review of Systems Review of Systems: All systems reviewed & are unremarkable except as noted in HPI & below Physical Exam Constitutional: well developed and well nourished; no acute distress Neck: normal visual inspection and trachea midline Cardiovascular: Rate/Rhythm: regular rate and regular rhythm Heart Sounds: normal S1 and normal S2 Vessels: no JVD Extremities: + edema (Trace BLE) Skin: no rashes, warm and dry Psychiatric: A+Ox3, euthymic affect Results & Data Vital Signs (Past 12 Hours) Vital Signs Temp Pulse Resp BP Pulse Ox O2 Del Method O2 Flow Rate 12/18/23 08:08 36.8 C 63 18 105/55 L 97 Nasal Cannula 2.0 12/18/23 03:40 37.0 C 64 20 129/76 100 Nasal Cannula 2 12/17/23 22:16 36.7 C 77 20 128/86 97 Room Air 12/17/23 21:15 36.3 C L 151/85 H 96 Room Air 12/17/23 21:15 Room Air Laboratory Results Cardiac Enzymes 12/17/23 12/17/23 12/18/23 Range/Units 14:47 22:27 04:49 AST 17 (13-39) U/L Troponin I High Sens 12.6 67.8 H* D 216.6 H* D (0-20) pg/ml Coagulation 12/17/23 Range/Units 14:47 PT 11.3 (9.0-12.0) Seconds APTT 26 (21-31) Seconds CBC 12/17/23 12/18/23 Range/Units 14:47 04:49 WBC 8.41 6.60 (4.8-10.8) K/ul RBC 3.74 L 3.45 L (4.70-6.10) M/uL Hgb 12.9 L 12.0 L (14.0-18.0) g/dl Hct 37.8 L 34.2 L (42.0-52.0) % Plt Count 182 155 (130-400) K/uL Neut # (Auto) 5.83 (1.40-6.50) K/uL Lymph # (Auto) 1.79 (1.20-3.40) K/uL [place] # (Auto) 0.56 (0.11-0.59) K/uL Eos # (Auto) 0.21 (0.00-0.50) K/uL Baso # (Auto) 0.01 (0.00-0.20) K/uL Comprehensive Metabolic Panel 12/17/23 12/18/23 Range/Units 14:47 04:49 Sodium 138 140 (136-145) mmol/L Potassium 3.8 3.5 (3.5-5.1) mmol/L Chloride 99 102 (98-107) mmol/L Carbon Dioxide 33 H 32 (21-32) mmol/L BUN 15 11 (6-23) mg/dl Creatinine 0.57 L 0.53 L (0.6-1.4) mg/dl Glucose 113 H 104 H (70-99(Fasting)) mg/dl Calcium 10.1 9.5 (8.6-10.3) mg/dl AST 17 (13-39) U/L ALT 11 (7-52) U/L Alkaline Phosphatase 74 (34-104) U/L Total Protein 7.5 (6.0-8.3) gm/dl Albumin 4.8 (3.4-5.0) gm/dl Intake and Output 12/17/23 12/18/23 12/18/23 22:59 06:59 14:59 Intake Total 100 / 308.700 208.700 / 308.700 Output Total 200 / 200 Balance 100 / 108.700 8.700 / 108.700 Intake: IV 208.700 / 208.700 Heparin Sodium/Dextrose 25,000 208.700 / 208.700 units In 500 ml @ 800 UNITS/HR 16 mls/hr IV .Q24H [facility] Rx#: [id number] Oral 100 / 100 Output: Urine 200 / 200 Other: Other Intake Source Patient is NPO Weight 61.5 kg Weight Measurement Method Built in [facility] Diagnostic Findings EKG today, personally reviewed. SR with 1st degree AV block and occasional PVC Rate 62 bpm
[2023-12-18] MEDS: ASPIRIN 81 MG ECTAB PO SCH (09:36)
[2023-12-18] MEDS: CLOPIDOGREL BISULFATE 75 MG TAB PO SCH (09:36)
[2023-12-18] MEDS: CHOLECALCIFEROL 25 MCG (1000 UNITS) TAB PO SCH (09:37)
[2023-12-18] MEDS: ROSUVASTATIN CALCIUM 20 MG TAB PO SCH (09:37)
[2023-12-18] MEDS: FERROUS SULFATE 325 MG TAB PO SCH (09:38)
[2023-12-18] MEDS: FUROSEMIDE 20 MG TAB PO SCH (09:38)
[2023-12-18] MEDS: SPIRONOLACTONE 25 MG TAB PO SCH (09:39)
[2023-12-18 10:03] LABS: Vitamin B12 < 50 pg/ml (180-914)
--- NOTE | 2023-12-18 11:25 | Electrocardiogram Report ---
Test Reason : Blood Pressure : / mmHG Vent. Rate : 062 BPM Atrial Rate : 062 BPM P-R Int : 332 ms QRS Dur : 092 ms QT Int : 420 ms P-R-T Axes : -02 010 187 degrees QTc Int : 426 ms Sinus rhythm with 1st degree A-V block with occasional Premature ventricular complexes Abnormal ECG When compared with ECG of 17-DEC-2023 14:22, No significant change was found Confirmed by Eleno Robert ([id number]) on 12/18/2023 11:25:15 AM Referred By: Matthew Carlin Confirmed By:Eleno Robert
[2023-12-18] MEDS: POTASSIUM CHLORIDE CRTAB 20 MEQ TABCR PO STA (13:15)
[2023-12-18] MEDS: FUROSEMIDE INJ 20 MG/2 ML VIAL IV ONE (13:15)
--- NOTE | 2023-12-18 14:13 | Hospitalist Progress Note ---
Date of Service December 18, 2023 Assessment & Plan (1) Unstable angina pectoris: Plan: Patient presenting from home with worsening unstable angina symptoms. History of CAD s/p CABG x 3 in 1998, cardiac cath 2021 showing severe [place] vessel and graft disease not amenable to revascularization. In the ED, initial HS troponin negative, EKG without acute ST changes The second set of troponin is elevated to 216 and awaiting third set EKG showed sinus rhythm with first-degree AV block but no other ST-T wave changes Started on IV heparin and topical nitro in the ED, continue with both Continue home ASA, Plavix, statin, beta-tushar. Holding isosorbide in favor of topical nitroglycerin. Echo has been pending Appreciate cardiology input and recommendation He remains free of any pain and has been feeling a lot better No further cardiac studies at this time (2) CAD (coronary artery disease): (3) Ischemic cardiomyopathy: (4) Chronic combined systolic and diastolic CHF (congestive heart failure): Plan: Echo 12/2022-EF 45 to 50%, grade 1 diastolic dysfunction, mild mitral regurgitation, mild tricuspid regurgitation Appears euvolemic, continue home spironolactone and furosemide Remains euvolemic (5) Hypertension: Plan: Chronic, stable Continue amlodipine, metoprolol, diuretics (6) AAA (abdominal aortic aneurysm): Plan: 2021-5.[address] (7) ALEJANDRA (iron deficiency anemia): Plan: Hgb 12.9, at baseline Continue iron replacement (8) Seizure disorder: Plan: Chronic, stable Continue Tegretol DVT PROPHYLAXIS On IV heparin as above Admission and Anticipated Discharge Date Admission Date: December 17, 2023 Subjective 12/18/2023 Patient was seen and examined in telemetry unit He was admitted with chest pain and noted to have increasing troponin His pain has been resolved following admission Denies any other symptoms associated with it Review of Systems Review of Systems: All systems reviewed and are unremarkable except as noted below Physical Exam Physical Exam: Lying in bed comfortably Constitutional: average body habitus; not ill appearing Eyes: PERRL, conjunctivae normal, anicteric sclerae ENMT: external ear and nose normal, oropharynx normal Neck: trachea midline, no thyromegaly Respiratory: no respiratory distress Auscultation: lungs clear to auscultation bilaterally Cardiovascular: Rate/Rhythm: regular rate and regular rhythm; not tachycardic Heart Sounds: normal S1, normal S2 and + murmur Extremities: no edema Gastrointestinal (Abdomen): Inspection/Auscultation: normal bowel sounds; abdomen not distended Percussion/Palpation: abdomen soft; abdomen nontender Musculoskeletal: No acute arthritis involving any of the joint Neurologic: normal touch/pain/proprioception and moves all extremities; no focal motor deficits Psychiatric: A+Ox3, euthymic affect Lymphatic: no cervical or axillary lymphadenopathy Results & Data Results & Data Vital Signs (Past 12 Hours) Vital Signs Temp Pulse Pulse Resp BP Pulse Ox O2 Del Method 12/18/23 13:03 64 12/18/23 12:14 36.6 C 60 19 112/70 94 Room Air 12/18/23 08:08 36.8 C 63 18 105/55 L 97 Nasal Cannula 12/18/23 08:00 Room Air 12/18/23 03:40 37.0 C 64 20 129/76 100 Nasal Cannula O2 Flow Rate 12/18/23 13:03 12/18/23 12:14 12/18/23 08:08 2.0 12/18/23 08:00 12/18/23 03:40 2 Laboratory Results Short CBC 12/17/23 12/18/23 Range/Units 14:47 04:49 WBC 8.41 6.60 (4.8-10.8) K/ul Hgb 12.9 L 12.0 L (14.0-18.0) g/dl Hct 37.8 L 34.2 L (42.0-52.0) % Plt Count 182 155 (130-400) K/uL BMP 12/17/23 12/18/23 14:47 04:49 Sodium 138 140 Potassium 3.8 3.5 Chloride 99 102 Carbon Dioxide 33 H 32 BUN 15 11 Creatinine 0.57 L 0.53 L Glucose 113 H 104 H Calcium 10.1 9.5 Liver Function 12/17/23 Range/Units 14:47 Total Bilirubin 0.5 (0.2-1.0) mg/dl AST 17 (13-39) U/L ALT 11 (7-52) U/L Alkaline Phosphatase 74 (34-104) U/L Albumin 4.8 (3.4-5.0) gm/dl Medications Administered Current Inpatient Medications Acetaminophen (Acetaminophen 325 Mg Tab) 650 mg PO Q4H PRN PRN Reason: Pain or Fever Stop: 01/16/24 18:04 Amlodipine Besylate (Amlodipine Besylate 5 Mg Tab) 5 mg PO AMHS ON LICENSE OF [facility] Stop: 01/16/24 20:59 Last Admin: 12/18/23 09:35 Dose: 5 mg Aspirin (Aspirin 81 Mg Ectab) 81 mg PO QAM ON LICENSE OF [facility] Stop: 01/17/24 08:59 Last Admin: 12/18/23 09:36 Dose: 81 mg Carbamazepine (Carbamazepine 200 Mg Tablet) 200 mg PO BID ON LICENSE OF [facility] Stop: 01/16/24 20:59 Last Admin: 12/18/23 09:34 Dose: 200 mg Clopidogrel Bisulfate (Clopidogrel [facility]ulfate 75 Mg Tab) [facility]: 01/17/24 08:59 Last Admin: 12/18/23 09:36 Dose: 75 mg Ezetimibe (Ezetimibe 10 Mg Tab) 10 mg PO QPM ON LICENSE OF [facility] Stop: 01/16/24 20:59 Last Admin: 12/17/23 23:00 Dose: 10 mg Ferrous Sulfate (Ferrous Sulfate 325 Mg Tab) [facility] Stop: 01/17/24 08:59 Last Admin: 12/18/23 09:38 Dose: 325 mg Furosemide (Furosemide 20 Mg Tab) 20 mg PO QAM ON LICENSE OF [facility] Stop: 01/17/24 08:59 Last Admin: 12/18/23 09:38 Dose: 20 mg Heparin Sodium/Dextrose (Heparin Sodium/Dextrose) 25,000 units in 500 mls @ 16 mls/hr IV .Q24H ON LICENSE OF [facility]; Protocol Stop: 01/16/24 16:14 Last Titration: 12/18/23 06:21 Dose: 800 units/hr, 16 mls/hr Metoprolol Tartrate (Metoprolol Tartrate 50 Mg Tab) 50 mg PO TID ON LICENSE OF [facility] Stop: 01/16/24 20:59 Last Admin: 12/18/23 13:16 Dose: 50 mg Nitroglycerin (Nitroglycerin Sl 0.4 Mg/Tab Tab) 0.4 mg SL Q5M PRN PRN Reason: Chest Pain Stop: 01/16/24 18:04 Nitroglycerin (Nitroglycerin 2% Ointment 30gm Tube) 1 inch EXT Q6H ON LICENSE OF [facility] Stop: 01/16/24 19:59 Last Admin: 12/18/23 09:32 Dose: 1 inch Rosuvastatin Calcium (Rosuvastatin Calcium 20 Mg Tab) 40 mg PO [facility] Stop: 01/17/24 08:59 Last Admin: 12/18/23 09:37 Dose: 40 mg Spironolactone (Spironolactone 25 Mg Tab) 25 mg PO [facility] Stop: 01/17/24 08:59 Last Admin: 12/18/23 09:39 Dose: 25 mg Vitamin D (Cholecalciferol 1,000 Units 25 Mcg Tab) 1,000 units PO [facility] Stop: 01/17/24 08:59 Last Admin: 12/18/23 09:37 Dose: 1,000 units (2) CAD (coronary artery disease) Associated angina: with unstable angina Coronary Disease-Associated Artery/Lesion type: unspecified vessel or lesion type [place] vs. transplanted heart: [place] heart Qualified Code(s): I25.110 - Atherosclerotic heart disease of [place] coronary artery with unstable angina pectoris (5) Hypertension Hypertension type: unspecified Qualified Code(s): I10 - Essential (primary) hypertension
[2023-12-19 07:00] LABS: Basophils # (auto) 0.01 K/uL (0.00-0.20); Basophils % (auto) 0.1 %; Eosinophils # (auto) 0.32 K/uL (0.00-0.50); Eosinophils % (auto) 4.7 %; Hematocrit (blood only) 34.1 % (42.0-52.0); Hemoglobin 11.6 g/dl (14.0-18.0); Immature Granulocytes # (auto) 0.02 K/uL (0.01-0.20); Immature Granulocytes % (auto) 0.3 %; Lymphocytes # (auto) 1.23 K/uL (1.20-3.40); Mean Corpuscular Hemoglobin 34.4 pg (25.0-34.0); Mean Corpuscular Volume 101.2 fL (80.0-100.0); Mean Platelet Volume 9.3 fL (9.4-12.4); Monocytes # (auto) 0.55 K/uL (0.11-0.59); Monocytes % (auto) 8.1 %; Neutrophils % (auto) 68.8 %; Platelet Count 145 K/uL (130-400); RDW Coefficient of Variation 14.2 % (11.5-14.5); RDW Standard Deviation 52.8 fL (36.4-46.3); Red Blood Count 3.37 M/uL (4.70-6.10); White Blood Count 6.83 K/ul (4.8-10.8)
[2023-12-19 07:09] LABS: BUN Creatinine Ratio 16.4 (10-20); Calcium 9.4 mg/dl (8.6-10.3); Creatinine Clr Calc Pharmacy 67.1 ml/min; Est GFR (African American) 104.8 ml/min; Est GFR (Non-African American) 90.4 ml/min; Phosphorus 3.3 mg/dl (2.5-4.9)
[2023-12-19 07:43] LABS: ANTI-Xa, UFH(UnfractionatedHep 0.36 IU/ml (0.3-0.7)
--- NOTE | 2023-12-19 09:05 | Cardiology Progress Note ---
Date of Service December 19, 2023 Assessment & Plan (1) Unstable angina pectoris: Plan Assessment: 88 year old male with longstanding history of complex CAD s/p 3 vessel CABG in 1998 with recent cardiac catheterization showing severe [place] disease, diffuse graft disease and no amendable targets for revascularization. 1. NSTEMI -Continue his current OP medication regimen including ASA 81mg, Plavix 75mg, Amlodipine 5mg daily, Metoprolol tartrate 50mg TID, spironolactone 25mg Daily, and crestor 40mg Daily. -Transitioned to topical nitro patch and will not restart Imdur at time of discharge. -Heparin gtt discontinued. -Spoke with nursing staff, requested that patient be ambulated after having his lunch today to assess for any recurrence of angina. If remains asymptomatic, patient will be appropriate for discharge per cardiology services. -Recommend OP cardiology follow up in 2-4 weeks. Case has been discussed with Dr. Garay. Further recommendations regarding plan of care as per his assessment. I spent a total of 30 minutes on the date of service in preparation, delivery, documentation of the care provided to the patient excluding any time spent in the performance of separately billed services. AYSHA Kumar [facility] Cardiology [facility] Admission and Anticipated Discharge Date Admission Date: December 17, 2023 Supervising Physician Co-Signing Physician Notes Attending attestation: I have reviewed the advanced practitioner's documentation, and agree with, and take responsibility for the plan of care. Subjective: Patient describes feeling well from a chest pain standpoint, without recurrence overnight last night. His troponin did trend up, not unexpectedly. Chest pain-free. Exam: Pulmonary: Mild Rales bilaterally at the bases Data: EKG performed 12/19/2023 at 5:43 AM revealed sinus bradycardia 53 bpm with first- degree AV block, chronic inferolateral repolarization abnormality unchanged compared to previous tracings High-sensitivity troponin 12.6--> 67.8--> 216.6-->117.3 PG per mL Impression/ Plan: NSTEMI Heart failure with mildly reduced ejection fraction Patient with a history of multivessel coronary heart disease not amenable to revascularization as of most recent cardiac catheterization when he presented with a non-ST segment elevation myocardial infarction in 2021. His angina episodes have been happening with a lower amount of exertion and with increased frequency over the last few months and especially over the last few weeks. Echocardiogram performed this admission reveals small sized lateral wall motion abnormality, LVEF in the range of 45-50% unchanged compared to previous, with grade 2 diastolic dysfunction. -Patient feels well having completed a 48-hour course of IV heparin. -Recommend that the patient goes for a walk, and if he feels well off of heparin and on his new 0.4 mcg/h nitroglycerin patch which was placed this morning would recommend discharge to home with a nitroglycerin patch replacing his prior to hospital treatment with isosorbide mononitrate. Continue previous chronic cardiac medications including chronic dual antiplatelet therapy with aspirin clopidogrel and furosemide 20 mg daily. I spent a total of 25 minutes coordinating, documenting, and providing care for this patient excluding time spent in the performance of separately billed services or time spent by another provider. Matt Garay, Subjective 12/19/23: Patient seen and examined in follow up today. Feeling well. Offers no cardiac questions or concerns. Patient states that he has had no recurrence of chest pain/discomfort since admission. Heparin gtt discontinued this morning. Review of Telemetry shows SR with 1st degree AV Block, Rates 60's. No acute events overnight. Notes, labs, diagnostics, vitals reviewed. Review of Systems Review of Systems: All systems reviewed & are unremarkable except as noted in HPI & below Physical Exam Constitutional: well developed and well nourished; no acute distress Neck: normal visual inspection and trachea midline Respiratory: normal respiratory effort, lungs clear to auscultation Cardiovascular: RRR, no murmur, no edema Heart Sounds: normal S1 and normal S2 Vessels: dorsalis pedis pulses present; no JVD Extremities: no edema Skin: no rashes, warm and dry Psychiatric: A+Ox3, euthymic affect Results & Data Vital Signs (Past 12 Hours) Vital Signs Temp Pulse Resp BP Pulse Ox O2 Del Method O2 Flow Rate 12/19/23 02:45 36.3 C L 52 L 20 128/76 99 Nasal Cannula 2 12/18/23 23:45 36.6 C 59 L 16 113/66 98 Nasal Cannula 2 Laboratory Results Cardiac Enzymes 12/18/23 Range/Units 14:39 Troponin I High Sens 117.3 H* D (0-20) pg/ml CBC 12/19/23 Range/Units 06:11 WBC 6.83 (4.8-10.8) K/ul RBC 3.37 L (4.70-6.10) M/uL Hgb 11.6 L (14.0-18.0) g/dl Hct 34.1 L (42.0-52.0) % Plt Count 145 (130-400) K/uL Neut # (Auto) 4.70 (1.40-6.50) K/uL Lymph # (Auto) 1.23 (1.20-3.40) K/uL [place] # (Auto) 0.55 (0.11-0.59) K/uL Eos # (Auto) 0.32 (0.00-0.50) K/uL Baso # (Auto) 0.01 (0.00-0.20) K/uL Comprehensive Metabolic Panel 12/19/23 Range/Units 06:11 Sodium 139 (136-145) mmol/L Potassium 4.0 (3.5-5.1) mmol/L Chloride 102 (98-107) mmol/L Carbon Dioxide 33 H (21-32) mmol/L BUN 10 (6-23) mg/dl Creatinine 0.61 (0.6-1.4) mg/dl Glucose 104 H (70-99(Fasting)) mg/dl Calcium 9.4 (8.6-10.3) mg/dl Intake and Output 12/18/23 12/19/23 12/19/23 22:59 06:59 14:59 Intake Total 449.333 / 1189.333 200 / 1189.333 Output Total 400 / 1751 400 / 1751 Balance 49.333 / -561.667 -200 / -561.667 Intake: IV 249.333 / 249.333 Heparin Sodium/Dextrose 25,000 249.333 / 249.333 units In 500 ml @ 800 UNITS/HR 16 mls/hr IV .Q24H [facility] Rx#: [id number] Oral 200 / 940 200 / 940 Output: Urine 400 / 1750 400 / 1750 Other: Weight 59.9 kg Weight Measurement Method Built in [facility]
--- NOTE | 2023-12-19 11:41 | Communication Note ---
Date of Service: December 19, 2023 Please ambulate the patient in the hallway and see if he develops any chest pain. He may be going home this afternoon. Dr Mago Rodriguez
[2023-12-19] MEDS: NITROGLYCERIN 0.4 MG/HR PATCH TD SCH (11:52)
[2023-12-19 12:13] VITALS: PULSE 53; RESP 18; TEMP 97.5; O2SAT 98
--- NOTE | 2023-12-19 14:47 | Hospitalist Progress Note ---
Date of Service December 19, 2023 Assessment & Plan (1) Unstable angina pectoris: Plan: NSTEMI Patient presenting from home with worsening unstable angina symptoms. History of CAD s/p CABG x 3 in 1998, cardiac cath 2021 showing severe [place] vessel and graft disease not amenable to revascularization. In the ED, initial HS troponin negative, EKG without acute ST changes The second set of troponin is elevated to 216 and awaiting third set EKG showed sinus rhythm with first-degree AV block but no other ST-T wave changes Started on IV heparin and topical nitro in the ED, continue with both Continue home ASA, Plavix, statin, beta-tushar. Holding isosorbide in favor of topical nitroglycerin. Echo is showing-mild concentric LVH, small size lateral wall motion abnormality with akinesis of the segment, LV systolic function is mildly reduced with EF 45 to 50%, diastolic dysfunction grade 2, mild MR and mild TR Appreciate cardiology input and recommendation He remains free of any pain and has been feeling a lot better No further cardiac studies at this time His Imdur has been changed to topical Nitropaste-chest pain is controlled with it IV heparin has been discontinued this morning and will continue with the current medications on discharge He will have follow-up with airline captain in 2 to 4 weeks (2) CAD (coronary artery disease): (3) Ischemic cardiomyopathy: (4) Chronic combined systolic and diastolic CHF (congestive heart failure): Plan: Echo 12/2022-EF 45 to 50%, grade 1 diastolic dysfunction, mild mitral regurgitation, mild tricuspid regurgitation Appears euvolemic, continue home spironolactone and furosemide Remains euvolemic (5) Hypertension: Plan: Chronic, stable Continue amlodipine, metoprolol, diuretics (6) AAA (abdominal aortic aneurysm): Plan: 2021-5.[address] (7) ALEJANDRA (iron deficiency anemia): Plan: Hgb 12.9, at baseline Continue iron replacement (8) Seizure disorder: Plan: Chronic, stable Continue Tegretol DVT PROPHYLAXIS On IV heparin as above-discontinued Will be discharged home this afternoon Admission and Anticipated Discharge Date Admission Date: December 17, 2023 Subjective 12/18/2023 Patient was seen and examined in telemetry unit He was admitted with chest pain and noted to have increasing troponin His pain has been resolved following admission Denies any other symptoms associated with it 12/19/2023 The patient was seen and examined in telemetry unit He has been free from pain since admission His heparin was discontinued this morning and he has had ambulation in the hallway without any chest pain and her palpitation He will be discharged home this afternoon Review of Systems Review of Systems: All systems reviewed and are unremarkable except as noted below Physical Exam Physical Exam: Lying in bed comfortably Constitutional: average body habitus; not ill appearing Eyes: PERRL, conjunctivae normal, anicteric sclerae ENMT: external ear and nose normal, oropharynx normal Neck: trachea midline, no thyromegaly Respiratory: no respiratory distress Auscultation: lungs clear to auscultation bilaterally Cardiovascular: Rate/Rhythm: regular rate and regular rhythm; not tachycardic Heart Sounds: normal S1, normal S2 and + murmur Extremities: no edema Gastrointestinal (Abdomen): Inspection/Auscultation: normal bowel sounds; abdomen not distended Percussion/Palpation: abdomen soft; abdomen nontender Neurologic: normal touch/pain/proprioception and moves all extremities; no focal motor deficits Psychiatric: A+Ox3, euthymic affect Lymphatic: no cervical or axillary lymphadenopathy Results & Data Results & Data Vital Signs (Past 12 Hours) Vital Signs Temp Pulse Resp BP Pulse Ox O2 Del Method O2 Flow Rate 12/19/23 12:11 36.4 C L 53 L 18 127/61 98 Room Air 12/19/23 08:00 Room Air 12/19/23 08:00 36.6 C 69 17 118/62 99 Room Air 12/19/23 02:45 36.3 C L 52 L 20 128/76 99 Nasal Cannula 2 Laboratory Results Short CBC 12/19/23 Range/Units 06:11 WBC 6.83 (4.8-10.8) K/ul Hgb 11.6 L (14.0-18.0) g/dl Hct 34.1 L (42.0-52.0) % Plt Count 145 (130-400) K/uL BMP 12/19/23 06:11 Sodium 139 Potassium 4.0 Chloride 102 Carbon Dioxide 33 H BUN 10 Creatinine 0.61 Glucose 104 H Calcium 9.4 Medications Administered Current Inpatient Medications Acetaminophen (Acetaminophen 325 Mg Tab) 650 mg PO Q4H PRN PRN Reason: Pain or Fever Stop: 01/16/24 18:04 Amlodipine Besylate (Amlodipine Besylate 5 Mg Tab) 5 mg PO AMHS [facility] Stop: 01/16/24 20:59 Last Admin: 12/19/23 08:29 Dose: 5 mg Aspirin (Aspirin 81 Mg Ectab) [facility] [place]: 01/17/24 08:59 Last Admin: 12/19/23 08:30 Dose: 81 mg Carbamazepine (Carbamazepine 200 Mg Tablet) 200 mg PO BID [facility] Stop: 01/16/24 20:59 Last Admin: 12/19/23 08:29 Dose: 200 mg Clopidogrel Bisulfate (Clopidogrel Bisulfate 75 Mg Tab) [facility] [place]: 01/17/24 08:59 Last Admin: 12/19/23 08:30 Dose: 75 mg Ezetimibe (Ezetimibe 10 Mg Tab) 10 mg PO QPM [facility] Stop: 01/16/24 20:59 Last Admin: 12/18/23 21:10 Dose: 10 mg Ferrous Sulfate (Ferrous Sulfate 325 Mg Tab) 325 mg PO [facility] Stop: 01/17/24 08:59 Last Admin: 12/19/23 10:33 Dose: 325 mg Furosemide (Furosemide 20 Mg Tab) 20 mg PO [facility] Stop: 01/17/24 08:59 Last Admin: 12/18/23 09:38 Dose: 20 mg Metoprolol Tartrate (Metoprolol Tartrate 50 Mg Tab) 50 mg PO TID [facility] Stop: 01/16/24 20:59 Last Admin: 12/19/23 08:28 Dose: 50 mg Miscellaneous (Remove Nitro-Dur Patch) 1 each N/A DAILY@2100 [facility] Stop: 01/18/24 20:59 Nitroglycerin (Nitroglycerin Sl 0.4 Mg/Tab Tab) 0.4 mg SL Q5M PRN PRN Reason: Chest Pain Stop: 01/16/24 18:04 Nitroglycerin (Nitroglycerin 0.4 Mg/Hr Patch) 1 patch TD [facility] Stop: 01/18/24 10:44 Last Admin: 12/19/23 11:52 Dose: 1 patch Rosuvastatin Calcium (Rosuvastatin Calcium 20 Mg Tab) 40 mg PO [facility] Stop: 01/17/24 08:59 Last Admin: 12/19/23 08:29 Dose: 40 mg Spironolactone (Spironolactone 25 Mg Tab) 25 mg PO [facility] Stop: 01/17/24 08:59 Last Admin: 12/19/23 08:31 Dose: 25 mg Vitamin D (Cholecalciferol 1,000 Units 25 Mcg Tab) 1,000 [facility] [place]: 01/17/24 08:59 Last Admin: 12/19/23 08:31 Dose: 1,000 units (2) CAD (coronary artery disease) Associated angina: with unstable angina Coronary Disease-Associated Artery/Lesion type: unspecified vessel or lesion type [place] vs. transplanted heart: [place] heart Qualified Code(s): I25.110 - Atherosclerotic heart disease of [place] coronary artery with unstable angina pectoris (5) Hypertension Hypertension type: unspecified Qualified Code(s): I10 - Essential (primary) hypertension
[2023-12-19 15:10] VITALS: BP 110/57
--- NOTE | 2023-12-19 15:10 | Electrocardiogram Report ---
Test Reason : Blood Pressure : / mmHG Vent. Rate : 053 BPM Atrial Rate : 053 BPM P-R Int : 318 ms QRS Dur : 090 ms QT Int : 456 ms P-R-T Axes : 001 012 166 degrees QTc Int : 427 ms Sinus bradycardia with 1st degree A-V block Abnormal ECG When compared with ECG of 18-DEC-2023 06:01, Premature ventricular complexes are no longer Present Confirmed by Eleno Robert ([id number]) on 12/19/2023 3:10:04 PM Referred By: Matthew Carlin Confirmed By:Eleno Robert
--- NOTE | 2023-12-20 08:01 | Discharge Summary ---
Date of Service December 20, 2023 Admission HPI Per Admitting Provider 88-year-old male with PMH CAD s/p CABG x 3 in 1998, history of cardiac cath in 2021 showing [place] vessel and graft stenosis not amendable to intervention, class III angina pectoris, HTN, HLD, 5.[address] 2021, ischemic cardiomyopathy, chronic diastolic and systolic CHF, seizure disorder, iron deficiency anemia, and other problems listed below who presents to the ED for evaluation of chest pain. History is obtained from the patient and review of outpatient PCP and cardiology records. Patient with longstanding history of exertional angina requiring nitroglycerin. Patient typically will use about 2-3 nitroglycerin tablets per week however recently, patient has been requiring 4-5. This morning, around 5 AM, patient was awoken from sleep with severe chest tightness that was radiating down his right arm typical of his angina symptoms. Patient reports taking 1 sublingual nitroglycerin with resolution of the discomfort. A few hours later, patient required another sublingual nitroglycerin. Symptoms returned a couple of hours later, taking another sublingual nitroglycerin. Patient called his cardiology office and was referred to the ED for further evaluation. Patient is currently chest pain-free. He reports associated shortness of breath. Denies diaphoresis, lightheadedness, dizziness, nausea. Notes bilateral lower extremity edema over the past couple of years, which has not acutely worsened. Patient denies any other recent illnesses, fevers, chills. ED provider discussed case cardiology who recommended IV heparin and topical nitroglycerin. Initial HS troponin negative, EKG without acute ST changes. Patient has remained hemodynamically stable. Admission Exam Per Admitting Provider Constitutional: WD/WN, vitals as above no acute distress Eyes: PERRL, conjunctivae normal, anicteric sclerae ENMT: external ear and nose normal, oropharynx normal Respiratory: normal respiratory effort, lungs clear to auscultation Cardiovascular: Rate/Rhythm: regular rate and regular rhythm Vessels: normal peripheral pulses Extremities: + edema (Trace edema BLE) Gastrointestinal (Abdomen): normal bowel sounds, soft, nontender, no hepatosplenomegaly Musculoskeletal: no cyanosis or clubbing, extremities motor strength 5/5 Skin: no rashes, warm and dry Neurologic: PERRL, EOMI, accommodation nl, no face palsy, no dysarthria Psychiatric: A+Ox3, euthymic affect Principal Diagnosis NSTEMI, CAD, ischemic cardiomyopathy, hypertension, seizure disorder, abdominal aortic aneurysm with the size of 5.8 cm Discharge Exam Lying in bed comfortably Constitutional average body habitus; not ill appearing Eyes PERRL, conjunctivae normal, anicteric sclerae ENMT external ear and nose normal, oropharynx normal Neck trachea midline, no thyromegaly Respiratory no respiratory distress Auscultation: lungs clear to auscultation bilaterally Cardiovascular Rate/Rhythm: regular rate and regular rhythm; not tachycardic Heart Sounds: normal S1, normal S2 and + murmur Extremities: no edema Gastrointestinal (Abdomen) Inspection/Auscultation: normal bowel sounds; abdomen not distended Percussion/Palpation: abdomen soft; abdomen nontender Neurologic normal touch/pain/proprioception and moves all extremities; no focal motor deficits Psychiatric A+Ox3, euthymic affect Lymphatic no cervical or axillary lymphadenopathy Discharge Data Allergies Allergy/AdvReac Type Severity Reaction Status Date / Time diltiazem AdvReac Severe red rash Verified 12/17/23 16:35 on chest Hydantoins AdvReac Severe CAUSES A Verified 12/17/23 16:35 SEIZURE phenytoin AdvReac Severe CAUSES A Verified 12/17/23 16:35 SEIZURE Consultations 12/17/23 15:58 ED Decision to Admit Stat 12/17/23 18:05 Consult Cardiology Routine Hospital Course (1) Unstable angina pectoris: NSTEMI Patient presenting from home with worsening unstable angina symptoms. History of CAD s/p CABG x 3 in 1998, cardiac cath 2021 showing severe [place] vessel and graft disease not amenable to revascularization. In the ED, initial HS troponin negative, EKG without acute ST changes The second set of troponin is elevated to 216 and awaiting third set EKG showed sinus rhythm with first-degree AV block but no other ST-T wave changes Started on IV heparin and topical nitro in the ED, continue with both Continue home ASA, Plavix, statin, beta-tushar. Holding isosorbide in favor of topical nitroglycerin. Echo is showing-mild concentric LVH, small size lateral wall motion abnormality with akinesis of the segment, LV systolic function is mildly reduced with EF 45 to 50%, diastolic dysfunction grade 2, mild MR and mild TR Appreciate cardiology input and recommendation He remains free of any pain and has been feeling a lot better No further cardiac studies at this time His Imdur has been changed to topical Nitropaste-chest pain is controlled with it IV heparin has been discontinued this morning and will continue with the current medications on discharge He will have follow-up with epic specialist in 2 to 4 weeks (2) CAD (coronary artery disease): (3) Ischemic cardiomyopathy: (4) Chronic combined systolic and diastolic CHF (congestive heart failure): Echo 12/2022-EF 45 to 50%, grade 1 diastolic dysfunction, mild mitral regurgitation, mild tricuspid regurgitation Appears euvolemic, continue home spironolactone and furosemide Remains euvolemic (5) Hypertension: Chronic, stable Continue amlodipine, metoprolol, diuretics (6) AAA (abdominal aortic aneurysm): 2021-5.[address] (7) ALEJANDRA (iron deficiency anemia): Hgb 12.9, at baseline Continue iron replacement (8) Seizure disorder: Chronic, stable Continue Tegretol DVT PROPHYLAXIS On IV heparin as above-discontinued Will be discharged home this afternoon Total Time Total Time Spent Total Time Spent (In Minutes): 35 minutes Discharge Plan Discharge Items Patient Disposition: Home - Self-Care Reason For Visit: UNSTABLE ANGINA Discharge Diagnosis: NSTEMI, CAD, ischemic cardiomyopathy, hypertension, seizure disorder, abdominal aortic aneurysm with the size of 5.8 cm Condition on Discharge: Fair Activity: Resume your previous activity Activity Comment: Do not do any strenuous activities Non-emergency contact: Primary Care Provider Call non-emergency contact if: you have any medication questions and your symptoms worsen Follow-up/Referrals: Matthew Carlin MD [Physician] - (Date & Time 01/09/2024 10:30 AM Provider Matthew Carlin MD Department Cardiology, [facility] ) Kenny Osborn MD [Primary Care Provider] - (Date & Time 12/25/2023 10:20 AM Provider Kenny Osborn MD Department [facility] ) Diet: Heart Healthy and Low Sodium (2gm) Addtl Attending Provider Instructions: Please take precautions to avoid falls Take your medications as advised Your long-acting nitro- Imdur has been discontinued and replaced with Nitropaste No other change in your medications Please keep appointments with your healthcare providers Pending Studies at Discharge: No Stand-Alone Forms: Profilepasser, Smoking Cessation Medications and DC Order Prescriptions: New nitroglycerin [Nitro-Dur] 0.4 mg/hr Patch 24 Hour 1 patch transdermal QAM Qty: 30 0RF Continued carbamazepine [Tegretol] 200 mg Tablet 200 mg PO BID cholecalciferol (vitamin D3) [Vitamin D3] 25 mcg (1,000 unit) Tablet 1,000 unit PO QAM multivitamin Tablet 1 tab PO DAILY ezetimibe [Zetia] 10 mg tablet 10 mg PO QPM rosuvastatin [Crestor] 40 mg tablet 40 mg PO QAM nitroglycerin [Nitrostat] 0.4 mg Tablet, Sublingual 0.4 mg sublingual UD PRN (Reason: chest pain) Qty: 30 0RF Rx Instructions: 1 tablet under tongue every 5 minutes as needed for chest pain amlodipine 5 mg tablet 5 mg PO AMHS clopidogrel 75 mg tablet 75 mg PO QAM aspirin 81 mg Tablet,Delayed Release (Dr/Ec) 81 mg PO QAM Rx Instructions: take with food spironolactone 25 mg tablet 25 mg PO QAM furosemide 20 mg tablet 20 mg PO QAM ferrous sulfate 28 mg iron Tablet 28 mg PO QAM metoprolol tartrate 50 mg Tablet 50 mg PO TID Rx Instructions: MORNING,NOON AND EVENING Discontinued isosorbide mononitrate 120 mg tablet extended release 24 hr 120 mg PO DAILYBB Discharge Orders: Discharge Order (Routine); Ordered 12/19/23 Ordered By: Bigg Rodriguez Admission Data Admit Date/Time: 12/17/23 17:16 Attending Provider: Bigg Rodriguez Admit Provider: Rosio Jamil Primary Care Provider: Kenny Osborn Other Providers: Rosio Jamil; Matt Garay Other Interventions: Discharge Summary Assessment (RN) Last Done: 12/19/23 16:30
== END 2023-12-19 17:08 | disposition home or self-care (01) | DRG 281 ==
LOC: ED 14:00 → EDINP 17:16 → SUATTDRO 17:16 → EDINP 17:54 → 4W 21:10

== ENCOUNTER 2024-05-06 12:41 | Inpatient (IN) ==
[2024-05-06 13:28] LABS: Basophils # (auto) 0.02 K/uL (0.00-0.20); Basophils % (auto) 0.1 %; Eosinophils # (auto) 0.07 K/uL (0.00-0.50); Eosinophils % (auto) 0.5 %; Hematocrit (blood only) 42.9 % (42.0-52.0); Hemoglobin 14.3 g/dl (14.0-18.0); Immature Granulocytes # (auto) 0.07 K/uL (0.01-0.20); Immature Granulocytes % (auto) 0.5 %; Lymphocytes # (auto) 1.01 K/uL (1.20-3.40); Mean Corpuscular Hemoglobin 32.9 pg (25.0-34.0); Mean Corpuscular Hgb Conc 33.3 g/dL (32.0-36.0); Mean Corpuscular Volume 98.6 fL (80.0-100.0); Mean Platelet Volume 8.8 fL (9.4-12.4); Monocytes # (auto) 0.73 K/uL (0.11-0.59); Monocytes % (auto) 5.1 %; Neutrophils # (auto) 12.55 K/uL (1.40-6.50); Neutrophils % (auto) 86.8 %; Platelet Count 274 K/uL (130-400); RDW Coefficient of Variation 12.5 % (11.5-14.5); RDW Standard Deviation 45.7 fL (36.4-46.3); Red Blood Count 4.35 M/uL (4.70-6.10); White Blood Count 14.45 K/ul (4.8-10.8)
[2024-05-06 13:57] LABS: INR 1.1 (0.9-1.1); Partial Thromboplastin Time 28 Seconds (21-31); Prothrombin Time 12.1 Seconds (9.0-12.0)
[2024-05-06 13:58] LABS: Alanine Aminotransferase 28 U/L (7-52); Albumin Globulin Ratio 1.2 (0.9-2); Albumin Level 4.3 gm/dl (3.4-5.0); Alkaline Phosphatase 118 U/L (34-104); Anion Gap 11 (3-11); Aspartate Aminotransferase 26 U/L (13-39); BUN Creatinine Ratio 26.4 (10-20); Bilirubin,Total 0.8 mg/dl (0.2-1.0); Blood Urea Nitrogen 14 mg/dl (6-23); Calcium 10.1 mg/dl (8.6-10.3); Carbon Dioxide 34 mmol/L (21-32); Chloride 94 mmol/L (98-107); Est GFR (Non-African American) 95.8 ml/min; Globulin 3.6 gm/dl (2.5-4.0); Glucose 122 mg/dl (70-99(Fasting)); Potassium 3.3 mmol/L (3.5-5.1); Sodium 139 mmol/L (136-145); Total Protein 7.9 gm/dl (6.0-8.3)
--- NOTE | 2024-05-06 14:57 | CT Scan Report ---
CT head/brain wo con CLINICAL HISTORY: 88 years-old Male with fall. Acute head trauma status post fall TECHNIQUE: Multiple axial CT images of the head were obtained without contrast. A dose lowering tech nique was utilized adhering to the principles of ALARA. CT DOSE: 1562.41 mGy.cm COMPARISON: Head CT 04/28/2024 FINDINGS: Limited exam secondary to patient positioning. Involutional changes with chronic microvascular ischem ic disease. No acute intracranial hemorrhage, midline shift, intracranial mass, hydrocephalus, territ orial ischemia or abnormal extra-axial collection. The calvarium is intact. Minimal mucosal thickening of the ethmoid air cells. The mastoid air cells are clear. Unremarkable soft tissues. IMPRESSION: Limited exam secondary to positioning. No acute intracranial abnormality or calvarial fr acture. ACT 112: Negative or not required by law. The above report was generated using voice recognition software. It may contain grammatical, syntax o r spelling errors. Electronically signed by: Chris Wilcox M.D. 05/06/2024 2:56 PM
--- NOTE | 2024-05-06 16:59 | XRay Report ---
LEFT SHOULDER 3 VIEWS CLINICAL HISTORY: Fall. Left shoulder pain. FINDINGS: 3 views of the left shoulder are obtained. No prior studies are available for comparison at the time of dictation. The skeletal structures are osteopenic. There is no radiographic evidence of left shoulder fracture or dislocation. Mild degenerative change is seen at the glenohumeral and acrom ioclavicular joints. There is an acute to subacute appearing fracture of an anterolateral left mid to lower rib. Additional chronic/healed left-sided rib fractures are noted. The overlying soft tissues are within normal limits. The imaged left lung parenchyma appears clear. IMPRESSION: 1. There is no radiographic evidence of left shoulder fracture or dislocation. 2. There is an acute to subacute appearing fracture of an anterolateral left mid to lower rib. Correl ate for point tenderness. Electronically signed by: Wilbur Granados M.D. 05/06/2024 4:56 PM
--- NOTE | 2024-05-06 17:09 | XRay Report ---
XR pelvis 1-2V routine CLINICAL HISTORY: fall TECHNIQUE: A single frontal view of the pelvis was obtained. Comparison: Comparison is made to aortic ultrasound 01/09/2023 FINDINGS: There is no evidence of an acute fracture. Joint spaces are well-preserved. Vascular calcifications a re noted including a prominent calcified abdominal aortic aneurysm measuring 7.1 cm. IMPRESSION: 1. No evidence of acute osseous injury. 2. Prominent aortic aneurysm which appears slightly enlarged from 2022 although this may be secondar y to differences in technique. ACT 112: Negative or not required by law. Electronically signed by: Cy Pena M.D. 05/06/2024 5:08 PM
--- NOTE | 2024-05-06 17:10 | XRay Report ---
XR shoulder RT min 2V routine CLINICAL HISTORY: fall TECHNIQUE: 3 views of the right shoulder were obtained. Comparison: None available at the time of this dictation. FINDINGS: There is no evidence of an acute fracture. Joint spaces are well-preserved. The overlying soft tissue s are unremarkable. The visualized portions of the lungs are clear. IMPRESSION: No evidence of acute osseous injury. ACT 112: Negative or not required by law. Electronically signed by: Cy Pena M.D. 05/06/2024 5:09 PM
--- NOTE | 2024-05-06 17:13 | XRay Report ---
SINGLE VIEW CHEST CLINICAL HISTORY: Cough. Fall. FINDINGS: 2 AP, portable, semierect chest radiographs are compared to study dated 12/17/2023. The exam ination is degraded by portable technique. The head largely obscures the right thorax on the initial image, and the second image is degraded by apical lordotic positioning. The patient is status post mi dline sternotomy. The heart is enlarged noting atherosclerotic calcification of the thoracic aorta. T he pulmonary vasculature is noncongested. Chronic interstitial thickening is similar to previous. The re is bibasilar scarring/atelectasis. No airspace consolidation or large pleural effusion is clearly identified. No pneumothorax is seen. The skeletal structures are osteopenic. There are chronic/healed left-sided rib fractures. Cholecystectomy clips are noted. IMPRESSION: 1. Cardiomegaly with no acute cardiopulmonary abnormality clearly identified. 2. Note that the examination is significantly degraded as above. Follow-up with a dedicated PA and la teral examination is recommended when the patient is clinically able. ACT 112: Negative or not required by law. Electronically signed by: Wilbur Granados M.D. 05/06/2024 5:11 PM
--- NOTE | 2024-05-06 17:20 | CT Scan Report ---
CT cervical spine wo con CLINICAL HISTORY: fall TECHNIQUE: Multidetector row helical CT of the cervical spine was performed without administration of intravenous contrast. Coronal and sagittal reformations were obtained. Automated dose lowering techn iques and/or adjustment according to patient size were utilized for this exam. Comparison: Comparison is made to CT cervical spine 04/28/2024 FINDINGS: Exam is limited by patient positioning. There is no evidence of acute fracture. Calcification of the nuchal ligament is seen. Degenerative changes and osteopenia are seen. The alignment is normal. Soft tissues are unremarkable. IMPRESSION: Degenerative changes without evidence of acute bony injury. ACT 112: Negative or not required by law. Electronically signed by: Cy Pena M.D. 05/06/2024 5:18 PM
[2024-05-06] MEDS: AMPICILLIN/SULBACTAM SOD 3,000 MG in SODIUM CHLOR 0.9% MINI-B 100 ML IV STA (19:21)
--- NOTE | 2024-05-06 19:44 | History & Physical Report ---
Date of Service May 06, 2024 Assessment & Plan (1) Recurrent falls: (2) Difficulty swallowing: (3) Cervical kyphosis: (4) Seizure disorder: Plan: 88-year-old male with history of CAD/CABG, CHF systolic and diastolic type, AAA, hypertension, dyslipidemia, seizure on Tegretol, presenting with recurrent falls. Status post mechanical fall Recurrent falls Acute left rib fractures Has been going on for a few months CT head: No acute process Will consult neurology for recurrent falls, in the setting of seizure disorder Lidoderm patch, incentive spirometry Tylenol IV for pain Dysphagia Aspiration Weight loss Severe kyphosis CT chest without contrast ordered Ceftriaxone 2 g IV daily Speech therapy consultation N.p.o. including meds for now except metoprolol and Tegretol Strict aspiration precautions Hypokalemia Secondary to poor intake, concomitant Lasix use K riders ordered CAD/CABG No cardiac symptoms On aspirin, Plavix CHF systolic and diastolic type Patient on the dry side Hold diuretics Gentle IV fluids AAA Slightly enlarged per x-ray today Monitor closely, will be on heparin subcu for DVT prophylaxis Hypertension On amlodipine Dyslipidemia On rosuvastatin and Zetia Seizure disorder On Tegretol DVT prophylaxis Heparin subcu twice daily CODE STATUS full code per patient Disposition Lives with Will need PT and OT evaluation plan of care discussed with patient And his at the bedside in detail and at length all questions answered They are understanding, agreeable, comfortable with the plan of care History of Present Illness Primary Care Provider: Kenny Osborn MD 88-year-old male with history of CAD/CABG, CHF systolic and diastolic type, abdominal aortic aneurysm, hypertension, dyslipidemia, seizures on Tegretol, presenting with recurrent falls. History obtained from patient and at the bedside. Outpatient [facility] records also reviewed. Patient has been having multiple falls for the past few months. As per patient, he keeps on losing his balance leading to the falls. Also, on some occasions, he would notice bilateral lower extremity shaking, before the falls happen. He denies lower extremity weakness, numbness, tingling, back pain. Denies losing consciousness, chest pain, palpitations, dizziness surrounding the falls. The fall would often lead to him hitting his head. This morning, around 4 AM, the patient was walking around the bed when again he lost his balance, falling, and hitting his head in the process. Again, no dizziness, lightheadedness, chest pain, palpitations, loss of consciousness. He was then brought to the ER for evaluation On admission, his vital signs overall stable. CT head no acute process. EKG Pending Chest x-ray showing bibasilar infiltrates/atelectasis, left anterolateral mid to lower rib fractures Hospitalist consulted for admission. Patient seen resting in bed, sitting up, not in distress, comfortable. States he feels okay overall Denies shortness of breath, dizziness, headache, nausea vomiting, abdominal pain, problems with urination or bowel movement. He does have some left lower rib pain. Appetite not great. Also has some upper back, lower posterior neck discomfort No other symptoms Allergies Allergy/AdvReac Type Severity Reaction Status Date / Time diltiazem AdvReac Severe red rash Verified 05/06/24 17:28 on chest Hydantoins AdvReac Severe CAUSES A Verified 05/06/24 17:28 SEIZURE phenytoin AdvReac Severe CAUSES A Verified 05/06/24 17:28 SEIZURE Home Medications Medication Instructions Recorded Confirmed Type carbamazepine 200 mg tablet 200 mg PO BID 12/28/19 05/06/24 History (Tegretol) cholecalciferol (vitamin D3) 25 1,000 unit PO QAM 12/28/19 05/06/24 History mcg (1,000 unit) tablet (Vitamin D3) ezetimibe 10 mg tablet (Zetia) 10 mg PO QPM 06/02/20 05/06/24 History multivitamin 1 tab PO DAILY 06/02/20 05/06/24 History rosuvastatin 40 mg tablet (Crestor) 40 mg PO QAM 06/02/20 05/06/24 History nitroglycerin 0.4 mg sublingual 0.4 mg sublingual UD PRN chest 02/17/22 05/06/24 Rx tablet (Nitrostat) pain #30 tabs amlodipine 5 mg tablet 5 mg PO AMHS 03/31/22 05/06/24 History aspirin 81 mg tablet,delayed 81 mg PO QAM 04/17/22 05/06/24 History release clopidogrel 75 mg tablet 75 mg PO QAM 04/17/22 05/06/24 History spironolactone 25 mg tablet 25 mg PO QAM 01/08/23 05/06/24 History ferrous sulfate 28 mg iron tablet 28 mg PO QAM 12/17/23 05/06/24 History furosemide 20 mg tablet 20 mg PO QAM 12/17/23 05/06/24 History metoprolol tartrate 50 mg tablet 50 mg PO BID 12/17/23 05/06/24 History nitroglycerin 0.4 mg/hr 1 patch transdermal QAM #30 ea 12/19/23 05/06/24 Rx transdermal 24 hour patch (Nitro-Dur) amoxicillin 875 mg-potassium 1 tab PO BID 5 days #10 tabs 04/25/24 05/06/24 Rx clavulanate 125 mg tablet lidocaine 4 % topical patch 1 patch topical DAILY PRN pain #10 04/28/24 05/06/24 Rx (AsperFlex (lidocaine)) ea Past Med/Surg History Problem List Recurrent falls Difficulty swallowing (Acute) Cervical kyphosis (Acute) Acute neck pain (Acute) Seizure disorder ALEJANDRA (iron deficiency anemia) AAA (abdominal aortic aneurysm) Hypertension (Acute) Chronic combined systolic and diastolic CHF (congestive heart failure) Ischemic cardiomyopathy CAD (coronary artery disease) (Acute) Status post coronary bypass grafting, 1998, CHASE graft to LAD, free radial graft from left internal mammary artery to the left first obtuse marginal, and right internal mammary artery graft to the right coronary artery. Unstable angina pectoris (Acute) History of coronary artery bypass graft x 3 (Acute) Medical History Stable angina pectoris Mobitz type 1 second degree atrioventricular block NSTEMI (non-ST elevated myocardial infarction) Elevated PSA Dissection of right iliac artery Antiphospholipid syndrome Osteoporosis Vitamin D deficiency History of VT (myocardial infarction) Hyperlipidemia Chronic stable angina Surgical History History of inguinal hernia repair History of vasectomy S/P CABG (coronary artery bypass graft) Family History Other Family history unknown Social History Smoking Status: Never smoker Tobacco Type: Cigarettes Second Hand Exposure: No; Do You Dip or Chew Tobacco: No; Hx Alcohol Use: Yes Alcohol type: wine Hx Substance Use: No Preferred Language: New Zealander Communication Ability: Effective Motor Runner Required: No Beliefs That Will Affect Care: None marital status: Current Living Situation: Spouse How many Children do You have: 5 Feels Safe at Home: Yes Assistive Devices: Cane, Oxygen - at Night and Walker Review of Systems Review of Systems: all noted and negative except for above Physical Exam Physical Exam: General- oriented x 3, not in distress, speaks in sentences with no effort or accessory muscle use Head- atraumatic, No obvious head injuries Eyes- PERRL, EOMI, anicteric ENT- oropharynx clear Neck- supple, no JVD, no adenopathy, no thyromegaly; carotids +2/2, no bruits appreciated Positive severe kyphosis Lungs-Mild rales left base, no wheezing Heart- normal rate, regular rhythm; no murmur, no gallop, no rub appreciated Abdomen- normal bowel sounds, nondistended, soft, nontender, no masses or hepatosplenomegaly Extremities- no pretibial edema, no calf tenderness; peripheral pulses intact Neuro- alert, oriented x 3; CN 2-12 grossly intact; motor 5/5 bilate rally;sensation 100% on all extremities; no other gross focal neurologic deficits Skin- warm & dry Results & Data Results & Data Vital Signs (Past 12 Hours) Vital Signs Temp Pulse Pulse Resp BP BP Pulse Ox 05/06/24 19:00 90 18 130/76 95 05/06/24 12:45 36.4 C L 95 H 20 120/77 97 O2 Del Method 05/06/24 19:00 Room Air 05/06/24 12:45 Room Air all noted and reviewed including below Code Status & VTE Plan VTE Prophylaxis Plan VTE Prophylaxis will be ordered: Yes (2) Difficulty swallowing Dysphagia type: pharyngoesophageal phase Qualified Code(s): R13.14 - Dysphagia, pharyngoesophageal phase (3) Cervical kyphosis Kyphosis type: other Qualified Code(s): M40.292 - Other kyphosis, cervical region
--- OUTSIDE RECORDS SUMMARY | 2024-05-06 21:14 | External Medical Summary | Summary of Care ---
Author Name Unknown Organization [facility] Address [address] [facility] [place] [address] Phone [phone] Care Team Providers Care Hi Teacher Name Role Phone Kenny Osborn MD Primary Care Provider [phone] Encounter Details Date Type Department Care Team (Late st Contact Info) Description 05/02/2024 Population Health External Data Unspecified Department Allergies Active Allergy Reactions Criticality Noted Date Comments Diltiazem 06/21/1999 RASH Hydantoins Seizure High 04/18/2022 Phenytoin Sodium 01/19/1999 SEIZURES documented as of this encounter (statuses as of 05/02/2024) Medications Medication Sig Dispensed Refills Start Date End Date Status MULTIVITAMIN TABS OR one pill each day 100 0 01/19/2003 Active Ferrous Sulfate (IRON) 28 MG Tablet Take 1 Tablet by mouth in the morning. Active Diclofenac Sodium 1 % gelIndications:Gener alized osteoarthritis Place 2 g topically on the skin 4 times a day as needed for Pain. 100 g 5 04/21/2020 Active Aspirin 81 MG Oral Tablet Chewable Take by mouth 1 Tablet in the morning. with food.. 100 Tablet 5 04/14/2022 Active oxygen IN GAS Administer into nostril 2 L/min(Oxygen) continuous . 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 90 Tablet 3 12/25/2023 Active amLODIPine Besylate 5 MG Oral Tablet (Norvasc)Indications :HTN, goal below 140/90,ASCVD (arteriosclerotic cardiovascular disease),Aortocorona ry bypass status Take 1 Tablet by mouth in the morning. 180 Tablet 3 01/09/2024 Active Colchicine 0.6 MG Oral Tablet Take 1 Tablet by mouth in the morning. 34 Tablet 11 01/09/2024 Active Metoprolol Succinate ER 50 MG Oral Tablet Extended Release 24 Hour (Toprol XL) Take 1 Tablet by mouth in the morning and 1 Tablet before bedtime. 180 Tablet 01/09/2024 Active Nitroglycerin 0.4 MG/HR Transdermal Patch 24 Hour (Nitro-Dur) Place 1 Patch topically on the skin in the morning. 30 Patch 11 02/04/2024 Active Nitroglycerin 0.4 MG Sublingual Tablet Sublingual (Nitrostat) Place 1 Tablet under the tongue every 5 minutes as needed for Pain, Chest. 180 Tablet 3 02/28/2024 Active Clopidogrel Bisulfate 75 MG Oral Tablet (pLAVix) Take 1 Tablet by mouth in the morning. 90 Tablet 3 03/04/2024 Active Furosemide 20 MG Oral Tablet (Lasix)Indications:C hronic systolic heart failure (HCC),HTN, goal below 140/90 Take 1 Tablet by mouth in the morning. In the morning.. 90 Tablet 3 03/29/2024 Active Rosuvastatin Calcium 40 MG Oral Tablet (Crestor)Indications :ASCVD (arteriosclerotic cardiovascular disease),Aortocorona ry bypass status,Dyslipidemia, goal LDL below 70 Take 1 Tablet by mouth in the morning. 90 Tablet 3 04/09/2024 Active Cefdinir 125 MG/5ML Oral Suspension Reconstituted (Omnicef)Indications :Cellulitis of right hand Take 10 mL by mouth in the morning and 10 mL before bedtime. Do all this for 10 days. 200 mL 05/01/2024 05/11/2024 Active documented as of this encounter (statuses as of 05/02/2024) Active Problems Problem Noted Date Diagnosed Date Chronic combined systolic an d diastolic CHF (congestive heart failure) 12/25/2023 Prediabetes 03/27/2023 Hypertensive heart disease w ith [...] as of this encounter (statuses as of 05/02/2024) Resolved Problems Problem Noted Date Diagnosed Date [...] as of this encounter (statuses as of 05/02/2024) Immunizations Name Administration Dates Next Due COVID-19 mRNA, LNP-s, No Pre serve, 2-Dose Series (Discoverables) 11/16/2021,02/14/2021,01/18/2021 COVID-19, LNP-s, No Preserve , Jv-sucrose, Ages 12+ (Pfizer) 04/26/2022 COVID-19, MRNA-LNP, 23-24, P F, 50 MCG/0.5 mL, 12 YRS AND ABOVE, IM (MODERNA-Spikevax) 08/27/2023 Covid-19, Mrna, Lnp-s, Pf, B ivalent, 30 Mcg, IM, 12 yrs and above (Discoverables) 08/22/2022 Pneumococcal Conjugate Vacc, 13 Valent (Prevnar) [...] Types Packs/Day Years Used Date Smoking Tobacco: Former Cigarettes 1 28 0 04/24/1952 - 04/24/1980 Cigars Smokeless Tobacco: Never Comments:1979 quit cigarette s Has occasional cigar 2-3 month, only in summer Alcohol Use Standard Drinks/Week Comments Yes 0 (1 standard drink = 0.6 oz pur e alcohol) OCC/ 1 bottle wine per month PHQ-2 Answer Date Recorded PHQ Adult Total Score 0 12/21/2023 Hunger Vital Sign Answer Date Recorded Within the past 12 months, y ou worried that your food would run out before you got the money to buy more. Never true 02/27/20 24 Within the past 12 months, t he food you bought just didn't last and you didn't have money to get more. Never true 02/27/2024 Sex and Gender Information Value Date Recorded [...] Care Team (Late st Contact Info) Description 05/08/2024 11:00 AM EDT Scheduled Telephone Ancillary Department, [place] [address] [facility] [place] [address] [place] Nurse Follow Up Phone Call Schedule [address] [facility] [place] [address] 06/04/2024 1:00 PM EDT Laboratory Laboratory, [facility] [address] [phone] Chrissy Lopez [address] [address] 09/12/2024 2:00 PM EDT Office Visit Family Practice, [place] [address] [place] [facility] [place] [phone] Kenny Osborn MD [address] [place] [address] 10/27/2024 1:30 PM EST Office Visit Cardiology, [facility] [address] [facility] [place] [address] Julisa Hernandez CRNP [address] [place] [address] 12/17/2024 11:00 AM EST Nurse Only Ancillary Department, [place] [address] [place], [place] [id number] [place], Nurse Annual Wellness [address] [place] [facility] [place] [address] Health Maintenance Due Date Last Done Comments *BISPHONATE OR OTHER ACCEPTABLE MEDICATION NEEDED FOR OSTEOPOROSIS (REFER TO SMARTSET #1146) 12/09/2017 DXA Scan 11/15/2022 11/15/2020, 01/2016, 05/18/2014, Additional history exists AAA Monitoring 04/07/2023 04/07/2022, 05/20, 06/30/2020, Additional history exists COVID-19 Vaccine ( season) 2023 08/27/2023, 08/22/2022, 04/26/2022, Additional history exists Albumin/Creatinine Ratio 05/25/2024 05/25/2021, 12/2018 Depression Screening 12/21/2024 12/21/2023 HbA1c 01/04/2025 01/04/2024, 11/2022, 04/04/2022, Additional history exists DTaP,Tdap,and Td Vaccines (3 - Td or Tdap) 07/16/2033 07/16/2023, 04/01/2013, 04/11/2010, Additional history exists Hepatitis B Completed 06/21/1999, 01/1999, 01/19/1999, Additional history exists Pneumococcal Vaccine: 65+ Years Completed 04/20/2015, 03/18/2009, 12/05/2001 Zoster Vaccines Completed 12/06/2018, 05/19, 12/23/2008 VITAMIN D LEVEL ONCE IN A LIFETIME-USE SMARTSET# [id number] Completed 05/25/2021, 11/20/2018, 07/13/2017, Additional history exists [...] Documents on File Type Date Recorded 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 * No Code Date Activated Date Inactivated Comments 06/08/2010 9:05 AM 06/11/2010 5:32 PM This order r eflects the patients wishes and were consensually agreed upon. Question Answer Comments Discussion of Advance Direct zoë occurred with: Patient Does the patient have a Living Will? Yes, in arti rt and reviewed as current Does the patient have Health Care Power of Etl Architect? No * Full Code Date Activated Date Inactivated Comments 06/08/2010 12:41 AM 06/08/2010 9:05 AM This order reflects the patients wishes and were consensually agreed upon. Question Answer Comments Discussion of Advance Directives occurred with: Patient Does the patient have a Living Will? No Does the patient have Health Care Power of Attor courtney? No Healthcare Agents on File Name Relationship Healthcare Agent Relationship Communication Hawa wheeler Spouse First Alternate Health Care Agent Care Teams Hi Teacher Relationship Specialty Start Date End Date Kenny Osborn MD [address] [place] [address] PCP - General 08/29/05 documented as of this encounter
--- OUTSIDE RECORDS SUMMARY | 2024-05-06 21:15 | External Medical Summary | Summary of Care ---
Author Name Unknown Organization [facility] Address [address] [place] [address] Phone [phone] Care Team Providers Care Golf Course Manager Name Role Phone Kenny Osborn MD Primary Care Provider [phone] Reason for Visit * Reason Onset Date Comments Appointment 04/25/2024 Encounter Details Date Type Department Care Team (Late st Contact Info) Description 04/25/2024 Telephone [facility] [address] [place] [address] Kenny Osborn MD [address] [place] [address] Appointment Allergies Active Allergy Reactions Criticality Noted Date Comments Diltiazem 06/21/1999 RASH Hydantoins Seizure High 04/18/2022 Phenytoin Sodium 01/19/1999 SEIZURES documented as of this encounter (statuses as of 04/29/2024) Medications Medication Sig Dispensed Refills Start Date End Date Status MULTIVITAMIN TABS OR one pill each day 100 0 01/19/2003 Active Ferrous Sulfate (IRON) 28 MG Tablet Take 1 Tablet by mouth in the morning. 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 90 Tablet 3 12/25/2023 Active amLODIPine Besylate 5 MG Oral Tablet (Norvasc)Indications: HTN, goal below 140/90,ASCVD (arteriosclerotic cardiovascular disease),Aortocoronar y bypass status Take 1 Tablet by mouth in the morning. 180 Tablet 01/09/2024 Active Colchicine 0.6 MG Oral Tablet Take 1 Tablet by mouth in the morning. 34 Tablet 01/09/2024 Active Metoprolol Succinate ER 50 MG [...] 03/04/2024 Active Furosemide 20 MG Oral Tablet (Lasix)Indications:Ch ronic systolic heart failure (HCC),HTN, goal below 140/90 Take 1 Tablet by mouth in the morning. In the morning.. 90 Tablet 3 03/29/2024 Active Rosuvastatin Calcium 40 MG Oral Tablet (Crestor)Indications: ASCVD (arteriosclerotic cardiovascular disease),Aortocoronar y bypass status,Dyslipidemia, goal LDL below 70 Take 1 Tablet by mouth in the morning. 90 Tablet 3 04/09/2024 Active documented as of this encounter (statuses as of 04/29/2024) Active Problems Problem Noted Date Diagnosed Date Chronic combined systolic an d diastolic CHF (congestive heart failure) 12/25/2023 Prediabetes 03/27/2023 Hypertensive heart disease w ith chronic systolic congestive heart failure 03/13/2023 Chronic systolic heart failure 05/01/2022 Last Assessment & Plan: Euvolemic. Checking wt daily Continue furosemide 20mg daily. BP 102/62--asymptomatic. Continues amlodipine, metoprolol Will continue to monitor by [facility] nursing staff. Iron deficiency anemia 04/03/2022 Old DE (myocardial infarction) 01/13/2020 Dissection of right iliac [...] as of this encounter (statuses as of 04/29/2024) Resolved Problems Problem Noted Date Diagnosed Date [...] as of this encounter (statuses as of 04/29/2024) Immunizations Name Administration Dates Next Due COVID-19 mRNA, LNP-s, No Pre serve, 2-Dose Series (YouAppi) 11/16/2021,02/14/2021,01/18/2021 COVID-19, LNP-s, No Preserve , Jv-sucrose, Ages 12+ (Pfizer) 04/26/2022 COVID-19, MRNA-LNP, 23-24, P F, 50 MCG/0.5 mL, 12 YRS AND ABOVE, IM (MODERNA-Spikevax) 08/27/2023 Covid-19, Mrna, Lnp-s, Pf, B ivalent, 30 Mcg, IM, 12 yrs and above (YouAppi) 08/22/2022 Diptheria/Tetanus (Adult) 12/10/1998 Hepatitis A Vaccine [...] encounter Miscellaneous Notes * Telephone Encounter - Swetha Nelson OSA - 04/29/2024 11:36 AM EDT Done. 04/29/2024 * Telephone Encounter - Swetha Nelson OSA - 04/26/2024 10:51 AM EDT Called to schedule. Went straight to and VM Is full. MyG sent. 04/26/2024 * Telephone Encounter - hCata Guerra OSA - 04/25/2024 9:26 AM EDT No Appointments Available Patient declined appointments?: No What Visit Type is needed? Acute If Acute Visit Type is needed, were surrounding clinics offered to patient (Yes/No)? No acute available Was patient offered appointments with other available providers (Yes/No)? N/A See Call Details? (Yes or No): No Patient is coughing white mucus, and having a hard time swallowing. documented in this encounter Plan of Treatment Upcoming Encounters Date Type Department Care Team (Late st Contact Info) Description 05/01/2024 1:20 PM EDT Office Visit [facility] [address] [place] [address] Andie Kelly PA-C [address] [place] [address] 06/04/2024 1:00 PM EDT Laboratory Laboratory, [facility] [address] [phone] [facility] [address] [address] 09/12/2024 2:00 PM EDT Office Visit [facility] [address] [facility] [place] [address] Kenny Osborn MD [address] [place] [address] 10/27/2024 1:30 PM EST Office Visit Cardiology, [facility] [address] [facility] [place] [address] Julisa Hernandez CRNP [address] [place] [address] 12/17/2024 11:00 AM EST Nurse Only Ancillary Department, [place] [address] [facility] [facility] [place] [address] [place], Nurse [facility] Well[facility] [address] [facility] [address] Health Maintenance Due Date Last Done Comments [...] D LEVEL ONCE IN A LIFETIME-USE SMARTSET# [id number] Completed 05/25/2021, 11/20/2018, 07/13/2017, Additional history exists [...] Documents on File Type Date Recorded Patient Health Technician Hearing Expl anation POLST 01/29/2023 [place] [facility] FOR LIFE-SUSTAINING TREATMENT * Full Code (Latest [...] the patient have Health Care Power of Fire Assistant? No * Full Code Date Activated Date [...] First Alternate Health Care Agent Care Teams Golf Course Manager Relationship Specialty Start Date End Date Kenny Osborn MD [address] [place] [address] PCP - General 08/29/05 documented as of this encounter
--- OUTSIDE RECORDS SUMMARY | 2024-05-06 21:15 | External Medical Summary | Summary of Care ---
Author Name Unknown Organization [facility] Address [address] [facility] [place] [address] Phone [phone] Care Team Providers Care Ball Mill Mixer Name Role Phone Kenny Osborn MD Primary Care Provider [phone] Reason for Visit * Reason Comments Hospital Follow-Up Pt states that he is here form a ER visit due to neck pain Encounter Details Date Type Department Care Team (Late st Contact Info) Description 05/01/2024 1:20 PM EDT Office Visit [facility] [address] [place] [phone] Andie Kelly PA-C [address], [place] [id number] Personal history of fall*; Spasm of muscle; Cellulitis of right hand; Hallucinations Allergies Active Allergy Reactions Criticality Noted Date Comments Diltiazem 06/21/1999 RASH Hydantoins Seizure High 04/18/2022 Phenytoin Sodium 01/19/1999 SEIZURES documented as of this encounter (statuses as of 05/01/2024) Medications Medication Sig Dispensed Refills Start Date [...] by mouth 2 times daily 180 Tablet 11/21/2023 Active Spironolactone 50 MG Oral Tablet (Aldactone)Indicatio ns:Chronic combined systolic and diastolic CHF (congestive heart failure) (HCC) Take 1 Tablet by mouth in the morning. 90 Tablet 12/25/2023 Active amLODIPine Besylate 5 MG Oral [...] the skin in the morning. 30 Patch 02/04/2024 Active Nitroglycerin 0.4 MG Sublingual Tablet Sublingual (Nitrostat) Place 1 Tablet under the tongue every 5 minutes as needed for Pain, Chest. 180 Tablet 02/28/2024 Active Clopidogrel Bisulfate 75 MG Oral Tablet (pLAVix) Take 1 Tablet by mouth in the morning. 90 Tablet 03/04/2024 Active Furosemide 20 MG Oral Tablet [...] as of this encounter (statuses as of 05/01/2024) Active Problems Problem Noted Date Diagnosed Date [...] nursing staff. Iron deficiency anemia 04/03/2022 Old [place] (myocardial infarction) 01/13/2020 Dissection of right iliac [...] as of this encounter (statuses as of 05/01/2024) Resolved Problems Problem Noted Date Diagnosed Date [...] as of this encounter (statuses as of 05/01/2024) Immunizations Name Administration Dates Next Due COVID-19 mRNA, LNP-s, No Pre serve, 2-Dose Series (Layer) 11/16/2021,02/14/2021,01/18/2021 COVID-19, LNP-s, No Preserve , Jv-sucrose, [...] 04/24/1952 - 04/24/1980 Cigars Smokeless Tobacco: Never Tobacco Cessation:Counseling Given: Not Answered Comments:1979 quit cigarettes Has [...] Sign Reading Time Taken Comments Blood Pressure 122/66 05/01/2024 1:15 PM EDT Pulse 118 05/01/2024 1:15 PM EDT Temperature 36.2 C (97.1 F) 05/01/2024 1:15 PM ED T Respiratory Rate 18 05/01/2024 1:15 PM EDT Oxygen Saturation 98% 05/01/2024 1:15 PM EDT Inhaled Oxygen Concentration - - Weight 54.3 kg (119 lb 9.6 oz) 05/01/2024 1:15 P M EDT Height 157.5 cm (5' 2") 05/01/2024 1:15 PM EDT Body Mass Index 21.88 05/01/2024 1:15 PM EDT documented in this encounter Functional Status Functional [...] as of this encounter Progress Notes * Andie Kelly PA-C - 05/01/2024 1:22 PM EDT Images from the original note were not included. History of Present Illness R Jason Wheeler is a 88 year old male that presents for Hospital Follow-Up (Pt states that he is here form a ER visit due to neck pain ) Here for er f/u Was to [facility] He feels like he slept wrong He cannot sleep in the bed - he has to sleep in a reji lounge The er seemed really focused on his kyphosis as part of the issue They reported neck discomfort and difficulty swallowing He had some falls He ell onto his side so he is not sure why he would have symmetrical, bilateral pain Ct done at [facility] was negative for fracture and mild degeneration , neck was clear He is very tender to touch Since his last heart attack, he has had multiple falls 4 times The 1st time he fell and fractured his clavicle The next time he "messed up his side" - fell into an antique piece of furniture The 3rd time he was getting something out of the fridge. He closed the door and lost his balance. When he turned around to try to avoid a fall, he ended up falling due to the motion The 4th time he was playing with the dog and backed up to avoid a fall fromt he p uppy jumpiong. Ehmisjudged the space between the bed and other furniture. Bumped into it and it rebounded and hit his legs. He was functionally knocked over. His R hand stopped him. Sunday he asked his "what are these things crawling ont he floor". His did not see them He told her that as soon as he got up, they disappeared under hte bed Little people, little apparitions that appear and disappear. There is one he is trying to talk to. No one else sees them Initially was only at night By Sunday morning it was all day long. They were all over the house. Physical Exam Vitals: 05/01/24 1315 Temp: 36.2 C (97.1 F) Pulse: 118 Resp: 18 SpO2: 98% BP: 122/66 BMI: 21.87 BP Readings from Last 3 Encounters: 05/01/24 122/66 04/15/24 126/66 03/11/24 112/64 Wt Readings from Last 3 Encounters: 05/01/24 54.3 kg (119 lb 9.6 oz) 04/15/24 57.6 kg (127 lb) 03/11/24 59.9 kg (132 lb) BMI Readings from Last 3 Encounters: 05/01/24 21.88 kg/m 04/15/24 23.04 kg/m 03/11/24 23.95 kg/m Ht Readings from Last 3 Encounters: 05/01/24 1.575 m (5' 2") 12/11/23 1.581 m (5' 2.25") 01/18/23 1.6 m (5' 3") General: alert, healthy, and no distress Head: Normocephalic, No masses, lesions, tenderness or abnormalities Neck: supple, no adenopathy, no bruits, thyroid normal size, non-tender, without nodularity, bessie trap spasm Heart: regular rate & rhythm, no gallops, S-1 normal, and S-2 normal Lungs: chest symmetric with normal AP diameter, no chest deformities noted, no chest wall tenderness, lungs clear to auscultation Skin: skin color, texture, turgor are normal, R hand - swelling and eryteham of hte dorsum across to the 3rd phalange, this is not tender but uis mildly warm, palm is warm, there is a contused area on the thenar eminence. Assessment and Plan Personal history of fall (Primary) Spasm of muscle Cellulitis of right hand - Cefdinir 125 MG/5ML Oral Suspension Reconstituted (Omnicef); Take 10 mL by mouth in the morning and 10 mL before bedtime. Do all this for 10 days. Hallucinations ? If related to infection vs dementia Follow Up: Return for nurse call next 05/08/2024. | For: nurse call next 05/08/2024| Check-out note: How is hand doing? Better? Any issues Apparitions? Wrap-Up Rev er notes Treat infection Discuss tens unit - written instructions printed F/u call Sunday Rev with pcp Ice and heat on neck Rev er note in depth Time: I spent a total of 40-54 minutes (exact time 45 mins) on the date of service in preparation, delivery, and documentation of the care provided to Ayla Wheeler excluding any time spent in the performance of separately billed services. Andie Kelly PA-C 05/01/2024 2:56 PM documented in this encounter Nursing Notes * Rosanne Jett LPN - 05/01/2024 1:15 PM EDT Ayla Wheeler is a 88 year old male who presents today for Chief Complaint Patient presents with Hospital Follow-Up Pt states that he is here form a ER visit due to neck pain documented in this encounter Plan of Treatment Upcoming Encounters Date Type Department Care Team (Late st Contact Info) Description 05/08/2024 11:00 AM EDT Scheduled Telephone Ancillary Department, [place] [address] [facility] [address] [place], Nurse Follow Up Phone Call [facility] [address] [facility] [address] 06/04/2024 1:00 PM EDT Laboratory Laboratory, [facility] [address] [facility] [place] [phone] [facility] [address] [facility] [place] [address] 09/12/2024 2:00 PM EDT Office Visit Family [facility], [place] [address] [facility] [phone] Kenny Osborn MD [address] [facility] [address] 10/27/2024 1:30 PM EST Office Visit Cardiology, [facility] [address] [place] [address] Julisa Hernandez CRNP [address] [place] [address] 12/17/2024 11:00 AM EST Nurse Only Ancillary Department, [place] [address] [facility] [address] [place], Nurse Annual Wellness [address] [facility] [address] Health Maintenance Due Date Last Done Comments [...] D LEVEL ONCE IN A LIFETIME-USE SMARTSET# [id number] Completed 05/25/2021, 11/20/2018, 07/13/2017, Additional history exists [...] as of this encounter Visit Diagnoses Diagnosis Personal history of fall- Primary Spasm of muscle Cellulitis of right hand Cellulitis and abscess of hand, except fingers and thumb Hallucinations documented in this encounter Advance Directives Documents on File Type Date Recorded Patient Thread Cutter Expl anation POLST 01/29/2023 [place] [facility] FOR LIFE-SUSTAINING TREATMENT * Full Code (Latest [...] the patient have Health Care Power of Tacker Elastic Band? No * Full Code Date Activated Date [...] First Alternate Health Care Agent Care Teams Ball Mill Mixer Relationship Specialty Start Date End Date Kenny Osborn MD [address] [place] [facility] [place] [address] PCP - General 08/29/05 documented as of this encounter
[2024-05-06] MEDS ORDERED: ACETAMINOPHEN 1,000 MG/100 ML VIAL IV PRN (21:18)
[2024-05-06] MEDS: D5NSS + 20MEQ KCL 20 MEQ/1,000 ML BAG IV SCH (22:33)
[2024-05-06] MEDS: POTASSIUM CHLORIDE / WTR 10 MEQ/100 ML PLCT IV SCH (22:34)
[2024-05-06] MEDS: carBAMazepine 200 MG TABLET PO SCH (22:37)
[2024-05-06] MEDS: METOPROLOL TARTRATE 50 MG TAB PO SCH (22:37)
[2024-05-06] MEDS: LIDOCAINE 5% 1 PATCH TD SCH (22:40)
[2024-05-06] MEDS: HEPARIN SOD 5,000 UNIT/0.5 ML VIAL SQ SCH (22:41)
--- NOTE | 2024-05-06 22:45 | Emergency Department Note ---
History of Present Illness General Chief complaint: Fall Stated complaint: FALL Time Seen by Provider: 05/06/24 15:46 Source: family ( at bedside) History of Present Illness Provider complaint: Fall Onset (ago): day(s) 1 Maximum Pain Intensity: 5 88-year-old male presents to the emergency department with for fall. reports that the patient has been having headache and neck pain as well as bilateral shoulder pain. No blood thinners. Home Medications Medication Instructions Recorded Confirmed Type carbamazepine 200 mg tablet 200 mg PO BID 12/28/19 05/06/24 History (Tegretol) cholecalciferol (vitamin D3) 25 1,000 unit PO QAM 12/28/19 05/06/24 History mcg (1,000 unit) tablet (Vitamin D3) ezetimibe 10 mg tablet (Zetia) 10 mg PO QPM 06/02/20 05/06/24 History multivitamin 1 tab PO DAILY 06/02/20 05/06/24 History rosuvastatin 40 mg tablet (Crestor) 40 mg PO QAM 06/02/20 05/06/24 History nitroglycerin 0.4 mg sublingual 0.4 mg sublingual UD PRN chest 02/17/22 05/06/24 Rx tablet (Nitrostat) pain #30 tabs amlodipine 5 mg tablet 5 mg PO AMHS 03/31/22 05/06/24 History aspirin 81 mg tablet,delayed 81 mg PO QAM 04/17/22 05/06/24 History release clopidogrel 75 mg tablet 75 mg PO QAM 04/17/22 05/06/24 History spironolactone 25 mg tablet 25 mg PO QAM 01/08/23 05/06/24 History ferrous sulfate 28 mg iron tablet 28 mg PO QAM 12/17/23 05/06/24 History furosemide 20 mg tablet 20 mg PO QAM 12/17/23 05/06/24 History metoprolol tartrate 50 mg tablet 50 mg PO BID 12/17/23 05/06/24 History nitroglycerin 0.4 mg/hr 1 patch transdermal QAM #30 ea 12/19/23 05/06/24 Rx transdermal 24 hour patch (Nitro-Dur) amoxicillin 875 mg-potassium 1 tab PO BID 5 days #10 tabs 04/25/24 05/06/24 Rx clavulanate 125 mg tablet lidocaine 4 % topical patch 1 patch topical DAILY PRN pain #10 04/28/24 05/06/24 Rx (AsperFlex (lidocaine)) ea Allergies Allergy/AdvReac Type Severity Reaction Status Date / Time diltiazem AdvReac Severe red rash Verified 05/06/24 17:28 on chest Hydantoins AdvReac Severe CAUSES A Verified 05/06/24 17:28 SEIZURE phenytoin AdvReac Severe CAUSES A Verified 05/06/24 17:28 SEIZURE Past Med/Surg History Problem List Fall (Acute) Recurrent falls Difficulty swallowing (Acute) Cervical kyphosis (Acute) Acute neck pain (Acute) Seizure disorder ALEJANDRA (iron deficiency anemia) AAA (abdominal aortic aneurysm) Hypertension (Acute) Chronic combined systolic and diastolic CHF (congestive heart failure) Ischemic cardiomyopathy CAD (coronary artery disease) (Acute) Status post coronary bypass grafting, 1998, CHASE graft to LAD, free radial graft from left internal mammary artery to the left first obtuse marginal, and right internal mammary artery graft to the right coronary artery. Unstable angina pectoris (Acute) History of coronary artery bypass graft x 3 (Acute) Medical History Stable angina pectoris Mobitz type 1 second degree atrioventricular block NSTEMI (non-ST elevated myocardial infarction) Elevated PSA Dissection of right iliac artery Antiphospholipid syndrome Osteoporosis Vitamin D deficiency History of OR (myocardial infarction) Hyperlipidemia Chronic stable angina Surgical History History of inguinal hernia repair History of vasectomy S/P CABG (coronary artery bypass graft) Family History Other Family history unknown Social History Smoking Status: Former smoker Tobacco Type: Cigarettes Second Hand Exposure: No; Do You Dip or Chew Tobacco: No; Hx Alcohol Use: No Hx Substance Use: No Preferred Language: Urdu Communication Ability: Effective Stock Clerk Required: No Beliefs That Will Affect Care: None marital status: Current Living Situation: Spouse How many Children do You have: 5 Feels Safe at Home: Yes Assistive Devices: Cane, Oxygen - at Night and Walker Physical Exam Vital Signs Vital Signs - 24 hr 05/06/24 12:45 05/06/24 19:00 Temperature 36.4 C L Temperature Source Temporal Artery Scan Pulse Rate 95 H Pulse Rate [Apical] 90 Respiratory Rate 20 18 Respiratory Effort / Characteristics Non-Labored Spontaneous Respiratory Depth Normal Blood Pressure 120/77 Blood Pressure [Right Arm] 130/76 Blood Pressure Mean 91 Blood Pressure Mean [Right Arm] 94 Pulse Oximetry 97 95 Oxygen Delivery Method Room Air Room Air Sepsis Recent Fever Within 48 Hours No Sepsis New/Unexplained Change in Mental Status No Sepsis Action Taken by Nursing No Action Required Physical Exam GENERAL: Severe kyphosis. Patient coughing up brown mucus HENT: Exam performed. - Head: Normocephalic and atraumatic. NECK: Normal range of motion. Neck supple. No JVD present.spinous process tenderness present. CV: Normal rate, regular rhythm, normal heart sounds and intact distal pulses. There is no peripheral edema. Palpable radial pulses bue. PULM/CHEST: Rhonchi bilaterally. ABD: The abdomen is soft. MUSC/SKEL: Pelvis stable. NEURO: Motor and sensation grossly intact. Course Course 1546: The patient was evaluated in room C6. A complete history and physical exam was performed Administered Medications Discontinued Medications Ampicillin Sodium/Sulbactam Sodium 3,000 mg/ Sodium Chloride 100 mls @ 200 mls/hr IV NOW STA Stop: 05/06/24 18:41 Last Infusion: 05/06/24 20:07 Dose: Infused Documented By: Admin: 05/06/24 19:21 Dose: 200 mls/hr Documented By: AURA Medical Decision Making Laboratory Data Attestation: I reviewed the patient's lab results. 05/06/24 13:05 05/06/24 13:05 Lab Results 05/06/24 Range/Units 13:05 WBC 14.45 H (4.8-10.8) K/ul RBC 4.35 L (4.70-6.10) M/uL Hgb 14.3 (14.0-18.0) g/dl Hct 42.9 (42.0-52.0) % MCV 98.6 (80.0-100.0) fL MCH 32.9 (25.0-34.0) pg MCHC 33.3 (32.0-36.0) g/dL RDW Std Deviation 45.7 (36.4-46.3) fL RDW Coeff of Ana 12.5 (11.5-14.5) % Plt Count 274 (130-400) K/uL MPV 8.8 L (9.4-12.4) fL Immature Gran % (Auto) 0.5 % Neut % (Auto) 86.8 % Lymph % (Auto) 7.0 % [place] % (Auto) 5.1 % Eos % (Auto) 0.5 % Baso % (Auto) 0.1 % Neut # (Auto) 12.55 H (1.40-6.50) K/uL Lymph # (Auto) 1.01 L (1.20-3.40) K/uL [place] # (Auto) 0.73 H (0.11-0.59) K/uL Eos # (Auto) 0.07 (0.00-0.50) K/uL Baso # (Auto) 0.02 (0.00-0.20) K/uL Immature Gran # (Auto) 0.07 (0.01-0.20) K/uL PT 12.1 H (9.0-12.0) Seconds INR 1.1 (0.9-1.1) APTT 28 (21-31) Seconds PTT Ratio 1.0 Sodium 139 (136-145) mmol/L Potassium 3.3 L (3.5-5.1) mmol/L Chloride 94 L (98-107) mmol/L Carbon Dioxide 34 H (21-32) mmol/L Anion Gap 11 (3-11) BUN 14 (6-23) mg/dl Creatinine 0.53 L (0.6-1.4) mg/dl Est Cr Clr Drug Dosing Not Reportable Est GFR ( Amer) 111.0 ml/min Est GFR (Non-Af Amer) 95.8 ml/min BUN/Creatinine Ratio 26.4 H (10-20) Glucose 122 H (70-99(Fasting)) mg/dl Calcium 10.1 (8.6-10.3) mg/dl Total Bilirubin 0.8 (0.2-1.0) mg/dl AST 26 (13-39) U/L ALT 28 (7-52) U/L Alkaline Phosphatase 118 H (34-104) U/L Total Protein 7.9 (6.0-8.3) gm/dl Albumin 4.3 (3.4-5.0) gm/dl Globulin 3.6 (2.5-4.0) gm/dl Albumin/Globulin Ratio 1.2 (0.9-2) Imaging Data Radiologist's Impression: Head CT 05/06/24 12:51 CT head/brain wo con CLINICAL HISTORY: 88 years-old Male with fall. Acute head trauma status post fall TECHNIQUE: Multiple axial CT images of the head were obtained without contrast. A dose lowering technique was utilized adhering to the principles of ALARA. CT DOSE: 1562.41 mGy.cm COMPARISON: Head CT 04/28/2024 FINDINGS: Limited exam secondary to patient positioning. Involutional changes with chronic microvascular ischemic disease. No acute intracranial hemorrhage, midline shift, intracranial mass, hydrocephalus, territorial ischemia or abnormal extra-axial collection. The calvarium is intact. Minimal mucosal thickening of the ethmoid air cells. The mastoid air cells are clear. Unremarkable soft tissues. IMPRESSION: Limited exam secondary to positioning. No acute intracranial abnormality or calvarial fracture. ACT 112: Negative or not required by law. The above report was generated using voice recognition software. It may contain grammatical, syntax or spelling errors. Electronically signed by: Chris Wilcox M.D. 05/06/2024 2:[address] 05/06/24 15:48 CT cervical spine wo con CLINICAL HISTORY: fall TECHNIQUE: Multidetector row helical CT of the cervical spine was performed without administration of intravenous contrast. Coronal and sagittal reformations were obtained. Automated dose lowering techniques and/or adjustment according to patient size were utilized for this exam. Comparison: Comparison is made to CT cervical spine 04/28/2024 FINDINGS: Exam is limited by patient positioning. There is no evidence of acute fracture. Calcification of the nuchal ligament is seen. Degenerative changes and osteopenia are seen. The alignment is normal. Soft tissues are unremarkable. IMPRESSION: Degenerative changes without evidence of acute bony injury. ACT 112: Negative or not required by law. Electronically signed by: Cy Pena M.D. 05/06/2024 5:18 PM Chest X-Ray 05/06/24 16:12 SINGLE VIEW CHEST CLINICAL HISTORY: Cough. Fall. FINDINGS: 2 AP, portable, semierect chest radiographs are compared to study dated 12/17/2023. The examination is degraded by portable technique. The head largely obscures the right thorax on the initial image, and the second image is degraded by apical lordotic positioning. The patient is status post midline sternotomy. The heart is enlarged noting atherosclerotic calcification of the thoracic aorta. The pulmonary vasculature is noncongested. Chronic interstitial thickening is similar to previous. There is bibasilar scarring/atelectasis. No airspace consolidation or large pleural effusion is clearly identified. No pneumothorax is seen. The skeletal structures are osteopenic. There are chronic/healed left-sided rib fractures. Cholecystectomy clips are noted. IMPRESSION: 1. Cardiomegaly with no acute cardiopulmonary abnormality clearly identified. 2. Note that the examination is significantly degraded as above. Follow-up with a dedicated PA and lateral examination is recommended when the patient is clinically able. ACT 112: Negative or not required by law. Electronically signed by: Wilbur Granados M.D. 05/06/2024 5:11 PM Shoulder X-Ray 05/06/24 16:12 LEFT SHOULDER 3 VIEWS CLINICAL HISTORY: Fall. Left shoulder pain. FINDINGS: 3 views of the left shoulder are obtained. No prior studies are available for comparison at the time of dictation. The skeletal structures are osteopenic. There is no radiographic evidence of left shoulder fracture or dislocation. Mild degenerative change is seen at the glenohumeral and acromioclavicular joints. There is an acute to subacute appearing fracture of an anterolateral left mid to lower rib. Additional chronic/healed left-sided rib fractures are noted. The overlying soft tissues are within normal limits. The imaged left lung parenchyma appears clear. IMPRESSION: 1. There is no radiographic evidence of left shoulder fracture or dislocation. 2. There is an acute to subacute appearing fracture of an anterolateral left mid to lower rib. Correlate for point tenderness. Electronically signed by: Wilbur Granados M.D. 05/06/2024 4:56 PM Shoulder X-Ray 05/06/24 16:12 XR shoulder RT min 2V routine CLINICAL HISTORY: fall TECHNIQUE: 3 views of the right shoulder were obtained. Comparison: None available at the time of this dictation. FINDINGS: There is no evidence of an acute fracture. Joint spaces are well-preserved. The overlying soft tissues are unremarkable. The visualized portions of the lungs are clear. IMPRESSION: No evidence of acute osseous injury. ACT 112: Negative or not required by law. Electronically signed by: Cy Pena M.D. 05/06/2024 5:09 PM Pelvis X-Ray 05/06/24 16:13 XR pelvis 1-2V routine CLINICAL HISTORY: fall TECHNIQUE: A single frontal view of the pelvis was obtained. Comparison: Comparison is made to aortic ultrasound 01/09/2023 FINDINGS: There is no evidence of an acute fracture. Joint spaces are well-preserved. Vascular calcifications are noted including a prominent calcified abdominal aortic aneurysm measuring 7.1 cm. IMPRESSION: 1. No evidence of acute osseous injury. 2. Prominent aortic aneurysm which appears slightly enlarged from 2022 although this may be secondary to differences in technique. ACT 112: Negative or not required by law. Electronically signed by: Cy Pena M.D. 05/06/2024 5:08 PM ECG Data Attestation: I personally reviewed and interpreted this ECG as follows: Additional Comments: Sinus arrhythmia with rate of 85. MT 270 QRS [address] elevation or ST depression. First-degree AV block present. MDM Narrative Cardiac monitoring: An order was placed for continuous cardiac monitoring. The monitor shows a rate of 90 with sinus rhythm interpreted by me Vital signs stable. Imaging shows possible left-sided rib fractures. White blood cell count of 14. at bedside states the patient is not fit to go home and would like the patient admitted to the hospital. Patient treated with Unasyn for possible aspiration pneumonia. Impression & Plan Fall Discharge Plan Visit Data Chief Complaint: Fall Stated Complaint: FALL ED Provider: Momo Crow Discharge Problem: Fall Patient Disposition: Admitted As Inpatient Discharge Instructions Interventions: ED Discharge Assessment Last Done: 05/06/24 20:26
--- NOTE | 2024-05-07 00:44 | CT Scan Report ---
Exam(s): CT CHEST Without Contrast EXAM: CT Chest Without Intravenous Contrast CLINICAL HISTORY: Reason for exam: R/O PNEUMONIA. TECHNIQUE: Axial computed tomography images of the chest without intravenous contrast. Automated exposure control was utilized for the study. A dose lowering technique was utilized adhering to the principles of ALARA. COMPARISON: No relevant prior studies available. FINDINGS: Lungs: Mild bibasilar fibrotic changes. No mass. No consolidation. Pleural space: Unremarkable. No pneumothorax. No significant effusion. Heart: Cardiomegaly. Coronary artery calcifications. No significant pericardial effusion. Bones/joints: Extreme thoracic kyphosis. Postoperative changes median sternotomy. No acute fracture. No dislocation. Soft tissues: Unremarkable. Vasculature: See above. Lymph nodes: Unremarkable. No enlarged lymph nodes. Gallbladder and bile ducts: Pneumobilia this is incompletely evaluated on this exam. IMPRESSION: No acute findings in the chest. Pneumobilia is incompletely evaluated on this exam. Extreme thoracic kyphosis Electronically signed by: Kailash Sharp MD 05/07/24 00:43 AM
[2024-05-07] MEDS: cefTRIAXone SODIUM 2,000 MG/50 ML BAG IV SCH (06:19)
[2024-05-07 07:23] LABS: Basophils # (auto) 0.01 K/uL (0.00-0.20); Basophils % (auto) 0.1 %; Eosinophils # (auto) 0.15 K/uL (0.00-0.50); Eosinophils % (auto) 1.6 %; Hematocrit (blood only) 41.5 % (42.0-52.0); Immature Granulocytes # (auto) 0.05 K/uL (0.01-0.20); Immature Granulocytes % (auto) 0.5 %; Lymphocytes # (auto) 0.84 K/uL (1.20-3.40); Lymphocytes % (auto) 9.1 %; Mean Corpuscular Hemoglobin 33.2 pg (25.0-34.0); Mean Corpuscular Hgb Conc 33.7 g/dL (32.0-36.0); Mean Corpuscular Volume 98.3 fL (80.0-100.0); Mean Platelet Volume 9.3 fL (9.4-12.4); Monocytes # (auto) 0.66 K/uL (0.11-0.59); Monocytes % (auto) 7.2 %; Neutrophils # (auto) 7.48 K/uL (1.40-6.50); Neutrophils % (auto) 81.5 %; Platelet Count 253 K/uL (130-400); RDW Coefficient of Variation 12.4 % (11.5-14.5); RDW Standard Deviation 44.4 fL (36.4-46.3); Red Blood Count 4.22 M/uL (4.70-6.10); White Blood Count 9.19 K/ul (4.8-10.8)
--- OUTSIDE RECORDS SUMMARY | 2024-05-07 07:28 | External Medical Summary | Summary of Care ---
Author Name Unknown Organization [facility] Address [address] [place] [address] Phone [phone] Care Team Providers Care Filer And Sander Name Role Phone Kenny Osborn MD Primary Care Provider Reason for Referral * Evaluate & Treat - Unlimited Visits (Within 10 days (routine)) - Authorized Specialty Diagnoses / Procedures Referred By Giles olivas Referred To Contact Neurology Diagnoses Memory difficulties Kenny Osborn MD [address] [place] [address] Referral ID Status Reason Start Date Expiration Date Visits Requested Visits Authorized [id number] Authorized Specialty Services Required 05/06/2024 [id number] Question Answer Referral Priority Within 10 days (routine) Where should this appointment be scheduled? [facility] Is this referral being placed for insurance purposes ONLY No, patient needs appointment [facility] NEUROLOGY REFERRAL QUESTIONS Memory/Cognition * Evaluate & Treat - Unlimited Visits (Within 30 days (routine)) - Authorized Specialty Diagnoses / Procedures Referred By Giles olivas Referred To Contact Neurology Diagnoses Memory difficulties Kenny Osborn MD [address] [place] [address] Referral ID Status Reason Start Date Expiration Date Visits Requested Visits Authorized [id number] Authorized Specialty Services Required 05/05/2024 [id number] Question Answer Referral Priority Within 30 days (routine) Where should this appointment be scheduled? 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 Checking wt daily Continue furosemide 20mg daily. BP 102/62--asymptomatic. Continues amlodipine, metoprolol Will continue to monitor by [facility] nursing staff. Iron deficiency anemia 04/03/2022 Old [...] as of this encounter (statuses as of 05/06/2024) Resolved Problems Problem Noted Date Diagnosed Date [...] as of this encounter (statuses as of 05/06/2024) Immunizations Name Administration Dates Next Due COVID-19 mRNA, LNP-s, No Pre serve, 2-Dose Series (navigaya) 11/16/2021,02/14/2021,01/18/2021 COVID-19, LNP-s, No Preserve , Jv-sucrose, Ages 12+ (Pfizer) 04/26/2022 COVID-19, MRNA-LNP, 23-24, P F, 50 MCG/0.5 mL, 12 YRS AND ABOVE, IM (MODERNA-Spikevax) 08/27/2023 Covid-19, Mrna, Lnp-s, Pf, B ivalent, 30 Mcg, IM, 12 yrs and above (navigaya) 08/22/2022 Pneumococcal Conjugate Vacc, 13 Valent (Prevnar) [...] money to get more. Never true 02/27/2024 Childcare Answer Date Recorded Do you feel overwhelmed with taking care of a child, family member or friend? No 02/27/2024 Does your family need help f inding childcare? (Household - for ages 0-17 years) Not on file 02/27/2024 Clothing Answer Date Recorded Have you been unable to get clothing when it was really needed? Yes 02/27/2024 Is your family able to get c lothes or diapers when needed? (Household - for ages 0-17 years) Not on file 02/27/2024 Personal Safety Answer Date Recorded Do you feel unsafe or have concerns for your saf ety? No 02/27/2024 Do you have concerns for you r family's safety? (Household - for ages 0-17 years) Not on file 02/27/2024 Utilities Answer Date Recorded Do you have trouble paying y our heating, water, or electric bill? No 02/27/2024 Is your family able to pay t he heat, water, or electric bill? (Household - for ages 0-17 years) Not on file 02/27/2024 Does your family have access to good internet? (Household - for ages 0-17 years) Not on file 02/27/2024 Employment Status Answer Date Recorded Are you unemployed or without regular income? No 02/27/2024 Does the household have a [facility] source of income? (Household - for ages 0-17 years) Not on file 02/27/2024 Social Connections Answer Date Recorded How often do you feel lonely or isolated from th ose around you? Rarely 02/27/2024 Financial Resource Strain Answer Date R ecorded Do you have any trouble payi ng for your medications, or do you think you might in the future? No 02/27/2024 Does your family have troubl e paying for medicine? (Household - for ages 0-17 years) Not on file 02/27/2024 Transportation Needs Answer Date Record ed READ ONLY Do you have troubl e getting a ride to medical visits or work? Never True 02/27/2024 Does your family have a hard time getting a ride to doctors visits? (Household - for ages 0-17 years) Not on file 02/27/2024 Has lack of transportation k ept you from medical appointments, meetings, work, or from getting things needed for daily living? Check all that apply. (Adult - for ages 18 years and over) Not on file 02/27/2024 Do you (or your family) have trouble finding or paying for a ride (transportation)? (Household - for ages 0-17 years) Not on file 02/27/2024 Housing Stability Answer Date Recorded Do you currently live in a s helter or have no steady place to sleep at night? No 02/27/2024 READ ONLY Do you think you a re at risk of becoming homeless? No 02/27/2024 Does your family worry about paying for your home or becoming homeless? (Household - for ages 0-17 years) Not on file 0 02/27/2024 Are you homeless or worried that you might be in the future? (Adult - for ages 18 years and over) Not on file Are you (or your family) jey eless or worried that you might be in the future? (Household - for ages 0-17 years) Not on file Food Insecurity Answer Date Recorded Do you need food for this week? No 02/27/2024 Are you able to get enough f ood for your family? (Household - for ages 0-17 years) Not on file 02/27/2024 Does your family need food t his week? (Household - for ages 0-17 years) Not on file 02/27/2024 Do you always have enough fo od for your family? (Household - for ages 0-17 years) Not on file 02/27/2024 Sex and Gender Information Value Date [...] encounter Miscellaneous Notes * Telephone Encounter - Na Rico OSA - 05/05/2024 1:02 PM EDT Has the patient been seen for this problem? (Y/N)?: n If No, an appt needs to be scheduled before a referral will be placed (exception: proceed with referral request if referral request is for a yearly routine appointment with speciality) Patient Name: Ayla Wheeler Patient Primary care provider: Kenny Osborn MD Does this need to be an insurance referral (Y/N)?: n If Yes, does the insurance referral need to be placed into the [employer] system? Name of preferred specialist: Neurology Type of specialist: Neurologist Location of specialist: [facility] Specialist's Phone #: n/a Specialist's Fax #: n/a Reason for visit: Dementia Date of visit: n/a documented in this encounter Plan of Treatment Upcoming Encounters Date Type Department Care Team (Late st Contact Info) Description 05/08/2024 11:00 AM EDT Scheduled Telephone Ancillary Department, [place] [facility] [address] [place] [address] [place], Nurse Follow Up Phone Call Schedule [address] [place] [address] 06/04/2024 1:00 PM EDT Laboratory Laboratory, [facility] [place] [address] [phone] [facility] [place] [address] 07/04/2024 2:00 PM EDT Office Visit Neurology [facility] [place] [address] [facility] [place] [address] Karol Deutsch CRNP [address] [place] [address] 09/12/2024 2:00 PM EDT Office Visit Family Practice, [place] [address] [place] [phone] Kenny Osborn MD [address] [place] [address] 10/27/2024 1:30 PM EST Office Visit Cardiology, [facility] [address] [place] [address] Julisa Hernandez CRNP [address] [place] [address] 12/17/2024 11:00 AM EST Nurse Only Ancillary Department, [place] [facility] [address] [place] [address] [place], Nurse [facility] [address] [place] [address] Scheduled Referrals Name Type Priority Associated Diagnoses Orde r Schedule ADULT NEUROLOGY REFERRAL OP Referral Within 30 days (routine) Memory difficulties Ordered: 05/05/2024 ADULT NEUROLOGY REFERRAL OP Referral Within 10 days (routine) Memory difficulties Ordered: 05/06/2024 Health Maintenance Due Date Last Done Comments *BISPHONATE OR OTHER ACCEPTABLE MEDICATION NEEDED FOR OSTEOPOROSIS (REFER TO SMARTSET #1146) 12/09/2017 DXA Scan 11/15/2022 11/15/2020, 0801/2016, 05/18/2014, Additional history exists AAA Monitoring 04/07/2023 [...] D LEVEL ONCE IN A LIFETIME-USE SMARTSET# 09730 Completed 05/25/2021, 11/20/2018, 07/13/2017, Additional history exists [...] as of this encounter Visit Diagnoses Diagnosis Memory difficulties- Primary Memory loss documented in this encounter Advance Directives Documents on File Type Date Recorded Patient Machine Operator Expl anation POL 01/29/2023 [place] [facility] FOR LIFE-SUSTAINING TREATMENT * Full [...] the patient have Health Care Power of Global Marketing Intern? No * Full Code Date Activated Date [...] First Alternate Health Care Agent Care Teams Filer And Sander Relationship Specialty Start Date End Date Kenny Osborn MD [address] [place] [address] PCP - General 08/29/05 documented as of this encounter
[2024-05-07 07:47] LABS: BUN Creatinine Ratio 21.6 (10-20); Calcium 9.4 mg/dl (8.6-10.3); Creatinine Clr Calc Pharmacy 78.8 ml/min; Est GFR (African American) 112.8 ml/min; Est GFR (Non-African American) 97.3 ml/min; Potassium 3.7 mmol/L (3.5-5.1)
[2024-05-07] MEDS: NITROGLYCERIN 0.4 MG/HR PATCH TD SCH (08:46)
--- NOTE | 2024-05-07 09:00 | Neurology Consultation ---
Date of Consultation May 07, 2024 Assessment & Plan (1) Fall: Jason Wheeler presents with a mechanical fall at home. Multifactorial gait disorder, no specific concern these are related to his seizure disorder or medications. Recommend physical therapy. We will sign off. Telehealth Consultation Telehealth Information Telehealth Information: I performed this visit using a real-time telehealth connection between my location and the patients location ([facility]). After connecting through interactive tele-video, patient was identified by name and date of and/or wristband check.Patient (or authorized healthcare b2b sales representative) was informed that this was a telemedicine visit and it was being conducted confidentially over secure lines. My office door was closed and no one else was present in the room with me.Patient (or authorized healthcare b2b sales representative) provided consent to proceed with the visit, expressed an understanding of privacy and security of the telemedicine visit, and gave permission to have a hospital b2b sales representative in the room in order to assist with the visit and to conduct portions of the visit, as needed. I informed the patient (or authorized healthcare b2b sales representative) that I reviewed their record and presented the opportunity for them to ask any questions regarding the visit today. The patient agreed to participate. History of Present Illness Reason for Consultation: Falls Requesting Physician: Dr. Frias Attending Physician: Tg Frias MD History of Present Illness Jason Wheeler is an 88 yo M presenting with a fall at home after tripping over his cat. He reports normally walking with a walker. Has a history of seizures with his last seizure in . He had no loss of consciousness with the fall yesterday but did hurt his R shoulder and ribs, though no reduction in movement this morning. The patient otherwise does not have any further questions or concerns. Allergies Allergy/AdvReac Type Severity Reaction Status Date / Time diltiazem AdvReac Severe red rash Verified 05/06/24 17:28 on chest Hydantoins AdvReac Severe CAUSES A Verified 05/06/24 17:28 SEIZURE phenytoin AdvReac Severe CAUSES A Verified 05/06/24 17:28 SEIZURE Home Medications Medication Instructions Recorded Confirmed Type carbamazepine 200 mg tablet 200 mg PO BID 12/28/19 05/06/24 History (Tegretol) cholecalciferol (vitamin D3) 25 1,000 unit PO QAM 12/28/19 05/06/24 History mcg (1,000 unit) tablet (Vitamin D3) ezetimibe 10 mg tablet (Zetia) 10 mg PO QPM 06/02/20 05/06/24 History multivitamin 1 tab PO DAILY 06/02/20 05/06/24 History rosuvastatin 40 mg tablet (Crestor) 40 mg PO QAM 06/02/20 05/06/24 History nitroglycerin 0.4 mg sublingual 0.4 mg sublingual UD PRN chest 02/17/22 05/06/24 Rx tablet (Nitrostat) pain #30 tabs amlodipine 5 mg tablet 5 mg PO AMHS 03/31/22 05/06/24 History aspirin 81 mg tablet,delayed 81 mg PO QAM 04/17/22 05/06/24 History release clopidogrel 75 mg tablet 75 mg PO QAM 04/17/22 05/06/24 History spironolactone 25 mg tablet 25 mg PO QAM 01/08/23 05/06/24 History ferrous sulfate 28 mg iron tablet 28 mg PO QAM 12/17/23 05/06/24 History furosemide 20 mg tablet 20 mg PO QAM 12/17/23 05/06/24 History metoprolol tartrate 50 mg tablet 50 mg PO BID 12/17/23 05/06/24 History nitroglycerin 0.4 mg/hr 1 patch transdermal QAM #30 ea 12/19/23 05/06/24 Rx transdermal 24 hour patch (Nitro-Dur) amoxicillin 875 mg-potassium 1 tab PO BID 5 days #10 tabs 04/25/24 05/06/24 Rx clavulanate 125 mg tablet lidocaine 4 % topical patch 1 patch topical DAILY PRN pain #10 04/28/24 05/06/24 Rx (AsperFlex (lidocaine)) ea Patient History Medical History Stable angina pectoris Mobitz type 1 second degree atrioventricular block NSTEMI (non-ST elevated myocardial infarction) Elevated PSA Dissection of right iliac artery Antiphospholipid syndrome Osteoporosis Vitamin D deficiency History of AK (myocardial infarction) Hyperlipidemia Chronic stable angina Surgical History History of inguinal hernia repair History of vasectomy S/P CABG (coronary artery bypass graft) Family History Other Family history unknown Social History Smoking Status: Former smoker Tobacco Type: Cigarettes Second Hand Exposure: No; Do You Dip or Chew Tobacco: No; Hx Alcohol Use: No Hx Substance Use: No Preferred Language: Khmer Communication Ability: Effective Fire Support Man Required: No Beliefs That Will Affect Care: None marital status: Current Living Situation: Spouse How many Children do You have: 5 Feels Safe at Home: Yes Assistive Devices: Cane, Oxygen - at Night and Walker Review of Systems +R shoulder pain Physical Exam Neurological Examination: Mental Status: Awake and alert. Oriented to person, place, and time. Fluent. Comprehension intact. Affect appropriate. Cranial Nerves: III/IV/: Versions intact without nystagmus, no gaze preference. V: Facial sensation symmetric to light touch VII: Facial expression symmetric VIII: Hearing intact to voice IX/X: Palate elevates symmetrically XI: Shoulder shrug symmetric XII: Tongue midline Motor: Strength was symmetric and antigravity throughout. There were no abnormal movements. Reflexes: Unable to assess over telemedicine Results & Data Vital Signs (Past 12 Hours) Vital Signs Temp Pulse Pulse Resp BP BP Pulse Ox 05/07/24 07:48 36.7 C 73 18 134/75 95 05/07/24 07:40 71 05/07/24 04:22 36.9 C 75 18 107/71 93 05/06/24 23:21 86 05/06/24 22:59 36.7 C 78 18 125/72 95 05/06/24 21:47 05/06/24 21:25 83 05/06/24 21:21 36.8 C 73 18 149/81 H 97 O2 Del Method 05/07/24 07:48 Room Air 05/07/24 07:40 05/07/24 04:22 Room Air 05/06/24 23:21 05/06/24 22:59 Room Air 05/06/24 21:47 Room Air 05/06/24 21:25 05/06/24 21:21 Room Air Laboratory Results Abnormal lab results 05/06/24 05/07/24 Range/Units 13:05 06:47 WBC 14.45 H (4.8-10.8) K/ul RBC 4.35 L 4.22 L (4.70-6.10) M/uL Hct 41.5 L (42.0-52.0) % MPV 8.8 L 9.3 L (9.4-12.4) fL Neut # (Auto) 12.55 H 7.48 H (1.40-6.50) K/uL Lymph # (Auto) 1.01 L 0.84 L (1.20-3.40) K/uL [place] # (Auto) 0.73 H 0.66 H (0.11-0.59) K/uL PT 12.1 H (9.0-12.0) Seconds Potassium 3.3 L (3.5-5.1) mmol/L Chloride 94 L (98-107) mmol/L Carbon Dioxide 34 H 35 H (21-32) mmol/L Creatinine 0.53 L 0.51 L (0.6-1.4) mg/dl BUN/Creatinine Ratio 26.4 H 21.6 H (10-20) Glucose 122 H 135 H (70-99(Fasting)) mg/dl Alkaline Phosphatase 118 H (34-104) U/L
--- NOTE | 2024-05-07 16:21 | Fluoroscopy Report ---
FL video swallow CLINICAL HISTORY: assess for aspiration TECHNIQUE: Video fluoroscopy of the pharyngeal region was performed as barium mixtures of varying con sistencies were administered to the patient by the speech pathologist. A formal esophagram was not pe rformed. Comparison: None available at the time of this dictation. FINDINGS: Total fluoroscopy time: 27 minutes. Radiation dose: 10.5 mGy. Penetration and aspiration were seen within with thin barium. Penetration and trace aspiration were s een with nectar consistency barium. Penetration was seen with pudding and the patient was unable to c lear the bolus from the pharynx. Esophageal retention was seen. IMPRESSION: Penetration and aspiration as above. Please see the speech pathology report for further details. ACT 112: Negative or not required by law. Electronically signed by: Cy Pena M.D. 05/07/2024 4:19 PM
--- NOTE | 2024-05-07 16:22 | Electrocardiogram Report ---
Test Reason : Blood Pressure : / mmHG Vent. Rate : 085 BPM Atrial Rate : 085 BPM P-R Int : 270 ms QRS Dur : 090 ms QT Int : 378 ms P-R-T Axes : 092 029 150 degrees QTc Int : 449 ms Sinus rhythm with marked sinus arrhythmia with 1st degree A-V block with occasional Premature ventric ular complexes Nonspecific ST and T wave abnormality Abnormal ECG When compared with ECG of 19-DEC-2023 05:43, Premature ventricular complexes are now Present Vent. rate has increased BY 32 BPM Confirmed by Eleno Robert ([id number]) on 05/07/2024 4:21:56 PM Referred By: REFERRED SELF Confirmed By:Eleno Robert
--- NOTE | 2024-05-07 17:56 | Hospitalist Progress Note ---
Date of Service May 07, 2024 Assessment & Plan (1) Recurrent falls: (2) Difficulty swallowing: (3) Cervical kyphosis: (4) Seizure disorder: Plan: Mr. Wheeler is an 88-year-old male with history of CAD/CABG, CHF systolic and diastolic type, AAA, hypertension, dyslipidemia, seizure on Tegretol, admitted due to recurrent falls. Neurology suspects multifactorial, however, no further neurologic work up recommended at this time. Patient with progressive dysphagia, underwent video swallow this afternoon--noted to have no function swallow and severe oropharyngeal dysphagia. #Severe oropharyngeal dysphagia -Discussed with family--reports understanding of aspiration risk Agreeable at this time for permissive aspiration with pureed diet, but would like to discuss with palliative -Plan for pureed diet, continued GOC discussion -GOC discussion had at bedside, family mixed at this time on plan--will readdress tomorrow will discontinue abx, no clear infectious source (CT negative and UA clean) #Status post mechanical fall #Recurrent falls #Acute left rib fractures #Severe kyphosis CT head: No acute process, no focal deficits on exam Neurology: no further recommendations PT/OT Lidoderm patch, incentive spirometry Tylenol IV for pain Borderline criteria for orthostatic hypotension #Hypokalemia Secondary to poor intake, concomitant Lasix use K riders ordered #CAD/CABG No cardiac symptoms On aspirin, Plavix #Chronic CHF systolic and diastolic type Patient on the dry side Hold diuretics s/p gentle IV fluids encourage po #AAA Slightly enlarged per x-ray today Monitor closely, will be on heparin subcu for DVT prophylaxis #Hypertension On amlodipine #Dyslipidemia On rosuvastatin and Zetia #Seizure disorder On Tegretol DVT prophylaxis Heparin subcu twice daily CODE STATUS full code per patient, will continue to readdress given permissive aspiration PT/OT Admission and Anticipated Discharge Date Admission Date: May 06, 2024 Subjective No acute concerns Reports progressive issues with swallowing,noting adjustments in diet already Denies any acute concerns at this time open to palliative discussions Physical Exam Constitutional: WD/WN, vitals as above Respiratory: normal respiratory effort, lungs clear to auscultation Cardiovascular: RRR, no murmur, no edema Results & Data Results & Data Vital Signs (Past 12 Hours) Vital Signs Temp Pulse Pulse Resp BP BP Pulse Ox 05/07/24 16:17 76 05/07/24 15:34 36.5 C 77 15 114/78 97 05/07/24 11:21 36.2 C L 71 17 119/71 94 05/07/24 10:08 05/07/24 07:48 36.7 C 73 18 134/75 95 05/07/24 07:40 71 O2 Del Method 05/07/24 16:17 05/07/24 15:34 Room Air 05/07/24 11:21 Room Air 05/07/24 10:08 Room Air 05/07/24 07:48 Room Air 05/07/24 07:40 Laboratory Results Short CBC 05/07/24 Range/Units 06:47 WBC 9.19 (4.8-10.8) K/ul Hgb 14.0 (14.0-18.0) g/dl Hct 41.5 L (42.0-52.0) % Plt Count 253 (130-400) K/uL BMP 05/07/24 06:47 Sodium 140 Potassium 3.7 Chloride 100 Carbon Dioxide 35 H BUN 11 Creatinine 0.51 L Glucose 135 H Calcium 9.4 Medications Administered Home Medications Medication Instructions Recorded Confirmed Last Taken carbamazepine 200 mg tablet 200 mg PO BID 12/28/19 05/06/24 05/06/24 (Tegretol) cholecalciferol (vitamin D3) 25 1,000 unit PO QAM 12/28/19 05/06/24 05/06/24 mcg (1,000 unit) tablet (Vitamin D3) ezetimibe 10 mg tablet (Zetia) 10 mg PO QPM 06/02/20 05/06/24 05/05/24 multivitamin 1 tab PO DAILY 06/02/20 05/06/24 05/06/24 rosuvastatin 40 mg tablet (Crestor) 40 mg PO QAM 06/02/20 05/06/24 05/06/24 nitroglycerin 0.4 mg sublingual 0.4 mg sublingual UD PRN chest 02/17/22 05/06/24 03/31/22 tablet (Nitrostat) pain #30 tabs amlodipine 5 mg tablet 5 mg PO AMHS 03/31/22 05/06/24 05/06/24 aspirin 81 mg tablet,delayed 81 mg PO QAM 04/17/22 05/06/24 05/06/24 release clopidogrel 75 mg tablet 75 mg PO QAM 04/17/22 05/06/24 05/06/24 spironolactone 25 mg tablet 25 mg PO QAM 01/08/23 05/06/24 05/06/24 ferrous sulfate 28 mg iron tablet 28 mg PO QAM 12/17/23 05/06/24 05/06/24 furosemide 20 mg tablet 20 mg PO QAM 12/17/23 05/06/24 05/06/24 metoprolol tartrate 50 mg tablet 50 mg PO BID 12/17/23 05/06/24 05/06/24 nitroglycerin 0.4 mg/hr 1 patch transdermal QAM #30 ea 12/19/23 05/06/24 05/06/24 transdermal 24 hour patch (Nitro-Dur) amoxicillin 875 mg-potassium 1 tab PO BID 5 days #10 tabs 04/25/24 05/06/24 05/06/24 clavulanate 125 mg tablet lidocaine 4 % topical patch 1 patch topical DAILY PRN pain #10 04/28/24 05/06/24 Unknown (AsperFlex (lidocaine)) ea Active Medications Generic Name Dose Route Start Last Admin Trade Name Freq PRN Reason Stop Dose Admin Carbamazepine 200 mg 05/06/24 21:18 05/07/24 08:46 Carbamazepine 200 Mg Tablet PO 06/05/24 21:17 200 mg BID DIANA Administration Heparin Sodium (Porcine) 5,000 units 05/06/24 21:00 05/07/24 08:45 Heparin Sod 5,000 Unit/0.5 Ml Vial SQ 06/05/24 20:59 5,000 units Q12 DIANA Administration Potassium Chloride/Dextrose/Sod Cl 20 meq in 1,000 mls @ 75 mls/hr 05/06/24 22:00 05/07/24 11:57 D5nss + 20meq Kcl IV 06/05/24 21:17 75 mls/hr .[id number] DIANA Administration Ceftriaxone Sodium 2,000 mg in 50 mls @ 100 mls/hr 05/07/24 06:00 05/07/24 06:54 Rocephin IV 05/14/24 05:59 Infused Q24H DIANA Infusion Lidocaine 1 patch 05/06/24 21:18 05/06/24 22:40 Lidocaine 5% 1 Patch TD 06/05/24 21:17 1 patch HS DIANA Administration Metoprolol Tartrate 50 mg 05/06/24 21:18 05/07/24 08:45 Metoprolol Tartrate 50 Mg Tab PO 06/05/24 21:17 50 mg BID DIANA Administration Miscellaneous 1 each 05/06/24 21:18 05/06/24 22:45 Remove Nitro-Dur Patch N/A 06/05/24 21:17 1 each DAILY@2100 DIANA Administration Miscellaneous 1 each 05/07/24 09:00 05/07/24 08:46 Remove Lidoderm Patch N/A 06/06/24 08:59 1 each DAILY@0900 DIANA Administration Nitroglycerin 1 patch 05/07/24 09:00 05/07/24 08:46 Nitroglycerin 0.4 Mg/Hr Patch TD 06/06/24 08:59 1 patch QAM DIANA Administration (2) Difficulty swallowing Dysphagia type: pharyngoesophageal phase Qualified Code(s): R13.14 - Dysphagia, pharyngoesophageal phase (3) Cervical kyphosis Kyphosis type: other Qualified Code(s): M40.292 - Other kyphosis, cervical region
[2024-05-08 08:17] LABS: Hematocrit (blood only) 40.6 % (42.0-52.0); Hemoglobin 13.6 g/dl (14.0-18.0); Mean Corpuscular Hgb Conc 33.5 g/dL (32.0-36.0); Mean Corpuscular Volume 98.5 fL (80.0-100.0); Mean Platelet Volume 9.3 fL (9.4-12.4); Platelet Count 241 K/uL (130-400); RDW Coefficient of Variation 12.5 % (11.5-14.5); RDW Standard Deviation 45.1 fL (36.4-46.3); Red Blood Count 4.12 M/uL (4.70-6.10)
[2024-05-08 08:28] LABS: BUN Creatinine Ratio 20.9 (10-20); Calcium 9.3 mg/dl (8.6-10.3); Creatinine Clr Calc Pharmacy 93.8 ml/min; Est GFR (Non-African American) 104.4 ml/min; Magnesium 1.9 mg/dl (1.7-2.4); Phosphorus 2.4 mg/dl (2.5-4.9); Potassium 3.8 mmol/L (3.5-5.1)
[2024-05-08] MEDS ORDERED: POTASSIUM PHOS 3 MMOL/1 ML INFUSION IV STA (15:45)
--- NOTE | 2024-05-08 15:47 | Hospitalist Progress Note ---
Date of Service May 08, 2024 Assessment & Plan (1) Recurrent falls: (2) Difficulty swallowing: (3) Cervical kyphosis: (4) Seizure disorder: Plan: Mr. Wheeler is an 88-year-old male with history of CAD/CABG, CHF systolic and diastolic type, AAA, hypertension, dyslipidemia, seizure on Tegretol, admitted due to recurrent falls. Neurology suspects multifactorial, however, no further neurologic work up recommended at this time. Patient with progressive dysphagia, underwent video swallow this afternoon--noted to have no function swallow and severe oropharyngeal dysphagia. Patient agreeable to permissive aspiration and states that he does not want heroic efforts, therefore transitioned to DNR/DNI #Severe oropharyngeal dysphagia -Discussed with family--reports understanding of aspiration risk Agreeable at this time for permissive aspiration with pureed diet, but would like to discuss with palliative -Plan for pureed diet, continued GOC discussion -GOC discussion had at bedside, family mixed at this time on plan: DNR/DNI discontinue abx, no clear infectious source (CT negative and UA clean) #Status post mechanical fall #Recurrent falls #Acute left rib fractures #Severe kyphosis CT head: No acute process, no focal deficits on exam Neurology: no further recommendations Lidoderm patch, incentive spirometry Tylenol IV for pain PT/OT, referrals for juniper #Hypokalemia *improved Secondary to poor intake, concomitant Lasix use K riders ordered #CAD/CABG No cardiac symptoms On aspirin, Plavix #Chronic CHF systolic and diastolic type Patient on the dry side continue to hold diuretics s/p gentle IV fluids encourage po #AAA Slightly enlarged per x-ray today Monitor closely, will be on heparin subcu for DVT prophylaxis #Hypertension On amlodipine #Dyslipidemia On rosuvastatin and Zetia #Seizure disorder On Tegretol DVT prophylaxis Heparin subcu twice daily CODE STATUS DNR DNI after discussion 05/08 will continue to readdress given permissive aspiration PT/OT Admission and Anticipated Discharge Date Admission Date: May 06, 2024 Subjective NAEO, tolerating diet Discussed GoC at bedside, patient states he does not want heroic efforts, nor does he want a peg tube at this time. Patient denies any new concerns, at bedside aware of plan Physical Exam Constitutional: WD/WN, vitals as above Respiratory: normal respiratory effort, lungs clear to auscultation Cardiovascular: RRR, no murmur, no edema Results & Data Results & Data Vital Signs (Past 12 Hours) Vital Signs Temp Pulse Pulse Resp BP Pulse Ox O2 Del Method 05/08/24 15:12 36.9 C 80 16 127/75 97 Room Air 05/08/24 12:03 36.5 C 69 18 118/66 92 Room Air 05/08/24 09:09 75 05/08/24 07:50 36.6 C 78 16 132/62 95 Room Air Laboratory Results Short CBC 05/08/24 Range/Units 07:47 WBC 9.20 (4.8-10.8) K/ul Hgb 13.6 L (14.0-18.0) g/dl Hct 40.6 L (42.0-52.0) % Plt Count 241 (130-400) K/uL BMP 05/08/24 07:47 Sodium 141 Potassium 3.8 Chloride 105 Carbon Dioxide 30 BUN 9 Creatinine 0.43 L Glucose 119 H Calcium 9.3 Medications Administered Home Medications Medication Instructions Recorded Confirmed Last Taken carbamazepine 200 mg tablet 200 mg PO BID 12/28/19 05/06/24 05/06/24 (Tegretol) cholecalciferol (vitamin D3) 25 1,000 unit PO QAM 12/28/19 05/06/24 05/06/24 mcg (1,000 unit) tablet (Vitamin D3) ezetimibe 10 mg tablet (Zetia) 10 mg PO QPM 06/02/20 05/06/24 05/05/24 multivitamin 1 tab PO DAILY 06/02/20 05/06/24 05/06/24 rosuvastatin 40 mg tablet (Crestor) 40 mg PO QAM 06/02/20 05/06/24 05/06/24 nitroglycerin 0.4 mg sublingual 0.4 mg sublingual UD PRN chest 02/17/22 05/06/24 03/31/22 tablet (Nitrostat) pain #30 tabs amlodipine 5 mg tablet 5 mg PO AMHS 03/31/22 05/06/24 05/06/24 aspirin 81 mg tablet,delayed 81 mg PO QAM 04/17/22 05/06/24 05/06/24 release clopidogrel 75 mg tablet 75 mg PO QAM 04/17/22 05/06/24 05/06/24 spironolactone 25 mg tablet 25 mg PO QAM 01/08/23 05/06/24 05/06/24 ferrous sulfate 28 mg iron tablet 28 mg PO QAM 12/17/23 05/06/24 05/06/24 furosemide 20 mg tablet 20 mg PO QAM 12/17/23 05/06/24 05/06/24 metoprolol tartrate 50 mg tablet 50 mg PO BID 12/17/23 05/06/24 05/06/24 nitroglycerin 0.4 mg/hr 1 patch transdermal QAM #30 ea 12/19/23 05/06/24 05/06/24 transdermal 24 hour patch (Nitro-Dur) amoxicillin 875 mg-potassium 1 tab PO BID 5 days #10 tabs 04/25/24 05/06/24 05/06/24 clavulanate 125 mg tablet lidocaine 4 % topical patch 1 patch topical DAILY PRN pain #10 04/28/24 05/06/24 Unknown (AsperFlex (lidocaine)) ea Active Medications Generic Name Dose Route Start Last Admin Trade Name Freq PRN Reason Stop Dose Admin Carbamazepine 200 mg 05/06/24 21:18 05/08/24 08:29 Carbamazepine 200 Mg Tablet PO 06/05/24 21:17 200 mg BID DIANA Administration Heparin Sodium (Porcine) 5,000 units 05/06/24 21:00 05/08/24 08:29 Heparin Sod 5,000 Unit/0.5 Ml Vial SQ 06/05/24 20:59 5,000 units Q12 DIANA Administration Lidocaine 1 patch 05/06/24 21:18 05/07/24 20:19 Lidocaine 5% 1 Patch TD 06/05/24 21:17 1 patch HS DIANA Administration Metoprolol Tartrate 50 mg 05/06/24 21:18 05/08/24 08:29 Metoprolol Tartrate 50 Mg Tab PO 06/05/24 21:17 50 mg BID DIANA Administration Miscellaneous 1 each 05/06/24 21:18 05/07/24 20:20 Remove Nitro-Dur Patch N/A 06/05/24 21:17 1 each DAILY@2100 DIANA Administration Miscellaneous 1 each 05/07/24 09:00 05/08/24 08:29 Remove Lidoderm Patch N/A 06/06/24 08:59 1 each DAILY@0900 DIANA Administration Nitroglycerin 1 patch 05/07/24 09:00 05/08/24 07:52 Nitroglycerin 0.4 Mg/Hr Patch TD 06/06/24 08:59 1 patch QAM DIANA Administration (2) Difficulty swallowing Dysphagia type: pharyngoesophageal phase Qualified Code(s): R13.14 - Dysphagia, pharyngoesophageal phase (3) Cervical kyphosis Kyphosis type: other Qualified Code(s): M40.292 - Other kyphosis, cervical re gion
[2024-05-08] MEDS: POTASSIUM PHOSPHATE 15 MMOL in SODIUM CHLORIDE 0.9% 250 ML IV ONE (16:40)
[2024-05-08 18:27] LABS: Folate (Folic Acid),Ser orPlas 11.64 ng/ml (>5.38)
[2024-05-08 18:30] LABS: Vitamin B12 < 50 pg/ml (180-914)
[2024-05-09 07:47] LABS: Hemoglobin 14.1 g/dl (14.0-18.0); Mean Corpuscular Hemoglobin 32.7 pg (25.0-34.0); Mean Corpuscular Hgb Conc 33.6 g/dL (32.0-36.0); Mean Corpuscular Volume 97.4 fL (80.0-100.0); Mean Platelet Volume 9.4 fL (9.4-12.4); Platelet Count 261 K/uL (130-400); RDW Standard Deviation 43.1 fL (36.4-46.3); Red Blood Count 4.31 M/uL (4.70-6.10); White Blood Count 8.04 K/ul (4.8-10.8)
[2024-05-09 08:12] LABS: Calcium 9.5 mg/dl (8.6-10.3); Creatinine Clr Calc Pharmacy 87.1 ml/min; Est GFR (African American) 116.7 ml/min; Est GFR (Non-African American) 100.7 ml/min; Potassium 3.9 mmol/L (3.5-5.1)
--- NOTE | 2024-05-09 09:56 | Palliative Care Consultation ---
Date of Consultation May 09, 2024 Assessment & Plan (1) Weakness generalized: Multifactorial gait disorder. Seen by tele neuro who advised it is not related [facility] signed off. (2) Recurrent falls: (3) Acute neck pain: (4) Palliative care by specialist: (5) Advanced care planning/counseling discussion: 30min face to face ACP with pt and . She wants a trial of rehab and feels going home from here with hospice "is too much finality." He is willing to accommodate her wishes but overall notes desire to to ultimately be home and optimize QOL / family time. If he worsens while there ,then home with hospice. If he hates it then home with hospice. If he finishes and can be dc then home with hospice. She was very reluctant to consider home hospice from hospital. Several questions about what to expect moving forward - what happens when aspiration worsens, what are symptoms to expect, how are they managed etc. All answered to their apparent satisfaction. Dying changes at EOL reviewed at 's request. hospice discussed in detail. Plan As above History of Present Illness Reason for Consultation: severe dysphagia, poor VFSS--all consistencies Attending Physician: Tg Frias MD History of Present Illness Consulted to see pt for severe dysphagia, poor VFSS--all consistencies Admitted with recurrent falls Found to have no functional swallow, per primary team notes 05/08: Patient agreeable to permissive aspiration and states that he does not want heroic efforts, therefore transitioned to DNR/DNI. He declines PEG. PMH: CAD/CABG, CHF systolic and diastolic type, AAA, hypertension, dyslipidemia, seizure on Tegretol Allergies Allergy/AdvReac Type Severity Reaction Status Date / Time diltiazem AdvReac Severe red rash Verified 05/06/24 17:28 on chest Hydantoins AdvReac Severe CAUSES A Verified 05/06/24 17:28 SEIZURE phenytoin AdvReac Severe CAUSES A Verified 05/06/24 17:28 SEIZURE Home Medications Medication Instructions Recorded Confirmed Type carbamazepine 200 mg tablet 200 mg PO BID 12/28/19 05/06/24 History (Tegretol) cholecalciferol (vitamin D3) 25 1,000 unit PO QAM 12/28/19 05/06/24 History mcg (1,000 unit) tablet (Vitamin D3) ezetimibe 10 mg tablet (Zetia) 10 mg PO QPM 06/02/20 05/06/24 History multivitamin 1 tab PO DAILY 06/02/20 05/06/24 History rosuvastatin 40 mg tablet (Crestor) 40 mg PO QAM 06/02/20 05/06/24 History nitroglycerin 0.4 mg sublingual 0.4 mg sublingual UD PRN chest 02/17/22 05/06/24 Rx tablet (Nitrostat) pain #30 tabs amlodipine 5 mg tablet 5 mg PO AMHS 03/31/22 05/06/24 History aspirin 81 mg tablet,delayed 81 mg PO QAM 04/17/22 05/06/24 History release clopidogrel 75 mg tablet 75 mg PO QAM 04/17/22 05/06/24 History spironolactone 25 mg tablet 25 mg PO QAM 01/08/23 05/06/24 History ferrous sulfate 28 mg iron tablet 28 mg PO QAM 12/17/23 05/06/24 History furosemide 20 mg tablet 20 mg PO QAM 12/17/23 05/06/24 History metoprolol tartrate 50 mg tablet 50 mg PO BID 12/17/23 05/06/24 History nitroglycerin 0.4 mg/hr 1 patch transdermal QAM #30 ea 12/19/23 05/06/24 Rx transdermal 24 hour patch (Nitro-Dur) amoxicillin 875 mg-potassium 1 tab PO BID 5 days #10 tabs 04/25/24 05/06/24 Rx clavulanate 125 mg tablet lidocaine 4 % topical patch 1 patch topical DAILY PRN pain #10 04/28/24 05/06/24 Rx (AsperFlex (lidocaine)) ea Patient History Medical History Stable angina pectoris Mobitz type 1 second degree atrioventricular block NSTEMI (non-ST elevated myocardial infarction) Elevated PSA Dissection of right iliac artery Antiphospholipid syndrome Osteoporosis Vitamin D deficiency History of ND (myocardial infarction) Hyperlipidemia Chronic stable angina Surgical History History of inguinal hernia repair History of vasectomy S/P CABG (coronary artery bypass graft) Family History Other Family history unknown Social History Smoking Status: Former smoker Tobacco Type: Cigarettes Second Hand Exposure: No; Do You Dip or Chew Tobacco: No; Hx Alcohol Use: No Hx Substance Use: No Preferred Language: [place] Communication Ability: Effective Reverberatory Furnace Supervisor Required: No Beliefs That Will Affect Care: None marital status: Current Living Situation: Spouse How many Children do You have: 5 Feels Safe at Home: Yes Assistive Devices: Cane, Oxygen - at Night and Walker Review of Systems Review of Systems: All systems reviewed & are unremarkable except as noted in Subjective Physical Exam Constitutional: + thin, + frail appearing and cooperativ e Eyes: PERRL, conjunctivae normal, anicteric sclerae ENMT: Ears: + hearing impairment Mouth: + muffled voice, + dry oral mucous membranes and + poor dentition Neck: trachea midline, no thyromegaly Respiratory: normal respiratory effort (at rest) and symmetric chest movement Auscultation: + diminished lung sounds and + crackles Cardiovascular: Heart Sounds: normal S1 and normal S2 Gastrointestinal (Abdomen): Inspection/Auscultation: + hypoactive bowel sounds Percussion/Palpation: abdomen soft Musculoskeletal: Head/Neck/Chest: neck supple Extremities: + limited ROM of extremities, + muscle atrophy and + chronic stasis changes Gait: + antalgic gait Skin: + turgor decreased and + pallor Neurologic: Cranial Nerves: PERRL and normal accommodation Psychiatric: Orientation: alert and oriented x 3 Eye Contact: good eye contact Speech: normal rate/rhythm/volume of speech Affect: euthymic affect Insight: good insight Judgment: good judgement Results & Data Vital Signs (Past 12 Hours) Vital Signs Temp Pulse Pulse Resp BP Pulse Ox O2 Del Method 05/09/24 07:54 79 05/09/24 07:40 36.5 C 91 H 16 154/99 H 94 Room Air 05/09/24 03:14 36.3 C L 72 18 136/83 94 Room Air 05/09/24 01:00 67 05/08/24 23:00 36.3 C L 68 18 123/70 95 Room Air Laboratory Results 05/09/24 05/08/24 05/07/24 Range/Units 07:14 07:47 06:47 WBC 8.04 9.20 9.19 (4.8-10.8) K/ul RBC 4.31 L 4.12 L 4.22 L (4.70-6.10) M/uL Hgb 14.1 13.6 L 14.0 (14.0-18.0) g/dl Hct 42.0 40.6 L 41.5 L (42.0-52.0) % MCV 97.4 98.5 98.3 (80.0-100.0) fL MCH 32.7 33.0 33.2 (25.0-34.0) pg MCHC 33.6 33.5 33.7 (32.0-36.0) g/dL RDW Std Deviation 43.1 45.1 44.4 (36.4-46.3) fL RDW Coeff of Ana 12.0 12.5 12.4 (11.5-14.5) % Plt Count 261 241 253 (130-400) K/uL MPV 9.4 9.3 L 9.3 L (9.4-12.4) fL Immature Gran % (Auto) 0.5 % Neut % (Auto) 81.5 % Lymph % (Auto) 9.1 % [place] % (Auto) 7.2 % Eos % (Auto) 1.6 % Baso % (Auto) 0.1 % Neut # (Auto) 7.48 H (1.40-6.50) K/uL Lymph # (Auto) 0.84 L (1.20-3.40) K/uL [place] # (Auto) 0.66 H (0.11-0.59) K/uL Eos # (Auto) 0.15 (0.00-0.50) K/uL Baso # (Auto) 0.01 (0.00-0.20) K/uL Immature Gran # (Auto) 0.05 (0.01-0.20) K/uL PT (9.0-12.0) Seconds INR (0.9-1.1) APTT (21-31) Seconds PTT Ratio Sodium 138 141 140 (136-145) mmol/L Potassium 3.9 3.8 3.7 (3.5-5.1) mmol/L Chloride 100 105 100 (98-107) mmol/L Carbon Dioxide 32 30 35 H (21-32) mmol/L Anion Gap 6 6 5 (3-11) BUN 8 9 11 (6-23) mg/dl Creatinine 0.47 L 0.43 L 0.51 L (0.6-1.4) mg/dl Est Cr Clr Drug Dosing 87.1 93.8 78.8 Est GFR ( Amer) 116.7 121.0 112.8 ml/min Est GFR (Non-Af Amer) 100.7 104.4 97.3 ml/min BUN/Creatinine Ratio 17.0 20.9 H 21.6 H (10-20) Glucose 101 H 119 H 135 H (70-99(Fasting)) mg/dl Calcium 9.5 9.3 9.4 (8.6-10.3) mg/dl Phosphorus 2.4 L (2.5-4.9) mg/dl Magnesium 1.9 2.0 (1.7-2.4) mg/dl Total Bilirubin (0.2-1.0) mg/dl AST (13-39) U/L ALT (7-52) U/L Alkaline Phosphatase (34-104) U/L Total Protein (6.0-8.3) gm/dl Albumin (3.4-5.0) gm/dl Globulin (2.5-4.0) gm/dl Albumin/Globulin Ratio (0.9-2) Vitamin B12 < 50 L (180-914) pg/ml Folate 11.61 11.64 (>5.38) ng/ml 05/06/ Range/Units 13:05 WBC 14.45 H (4.8-10.8) K/ul RBC 4.35 L (4.70-6.10) M/uL Hgb 14.3 (14.0-18.0) g/dl Hct 42.9 (42.0-52.0) % MCV 98.6 (80.0-100.0) fL MCH 32.9 (25.0-34.0) pg MCHC 33.3 (32.0-36.0) g/dL RDW Std Deviation 45.7 (36.4-46.3) fL RDW Coeff of Ana 12.5 (11.5-14.5) % Plt Count 274 (130-400) K/uL MPV 8.8 L (9.4-12.4) fL Immature Gran % (Auto) 0.5 % Neut % (Auto) 86.8 % Lymph % (Auto) 7.0 % [place] % (Auto) 5.1 % Eos % (Auto) 0.5 % Baso % (Auto) 0.1 % Neut # (Auto) 12.55 H (1.40-6.50) K/uL Lymph # (Auto) 1.01 L (1.20-3.40) K/uL [place] # (Auto) 0.73 H (0.11-0.59) K/uL Eos # (Auto) 0.07 (0.00-0.50) K/uL Baso # (Auto) 0.02 (0.00-0.20) K/uL Immature Gran # (Auto) 0.07 (0.01-0.20) K/uL PT 12.1 H (9.0-12.0) Seconds INR 1.1 (0.9-1.1) APTT 28 (21-31) Seconds PTT Ratio 1.0 Sodium 139 (136-145) mmol/L Potassium 3.3 L (3.5-5.1) mmol/L Chloride 94 L (98-107) mmol/L Carbon Dioxide 34 H (21-32) mmol/L Anion Gap 11 (3-11) BUN 14 (6-23) mg/dl Creatinine 0.53 L (0.6-1.4) mg/dl Est Cr Clr Drug Dosing Not Reportable Est GFR ( Amer) 111.0 ml/min Est GFR (Non-Af Amer) 95.8 ml/min BUN/Creatinine Ratio 26.4 H (10-20) Glucose 122 H (70-99(Fasting)) mg/dl Calcium 10.1 (8.6-10.3) mg/dl Phosphorus (2.5-4.9) mg/dl Magnesium (1.7-2.4) mg/dl Total Bilirubin 0.8 (0.2-1.0) mg/dl AST 26 (13-39) U/L ALT 28 (7-52) U/L Alkaline Phosphatase 118 H (34-104) U/L Total Protein 7.9 (6.0-8.3) gm/dl Albumin 4.3 (3.4-5.0) gm/dl Globulin 3.6 (2.5-4.0) gm/dl Albumin/Globulin Ratio 1.2 (0.9-2) Vitamin B12 (180-914) pg/ml Folate (>5.38) ng/ml Diagnostic Findings Head CT 05/06/24 12:51 CT head/brain wo con CLINICAL HISTORY: 88 years-old Male with fall. Acute head trauma status post fall TECHNIQUE: Multiple axial CT images of the head were obtained without contrast. A dose lowering technique was utilized adhering to the principles of ALARA. CT DOSE: 1562.41 mGy.cm COMPARISON: Head CT 04/28/2024 FINDINGS: Limited exam secondary to patient positioning. Involutional changes with chronic microvascular ischemic disease. No acute intracranial hemorrhage, midline shift, intracranial mass, hydrocephalus, territorial ischemia or abnormal extra-axial collection. The calvarium is intact. Minimal mucosal thickening of the ethmoid air cells. The mastoid air cells are clear. Unremarkable soft tissues. IMPRESSION: Limited exam secondary to positioning. No acute intracranial abnormality or calvarial fracture. ACT 112: Negative or not required by law. The above report was generated using voice recognition software. It may contain grammatical, syntax or spelling errors. Electronically signed by: Chris Wilcox M.D. 05/06/2024 2:[address] 05/06/24 15:48 CT cervical spine wo con CLINICAL HISTORY: fall TECHNIQUE: Multidetector row helical CT of the cervical spine was performed without administration of intravenous contrast. Coronal and sagittal reformations were obtained. Automated dose lowering techniques and/or adjustment according to patient size were utilized for this exam. Comparison: Comparison is made to CT cervical spine 04/28/2024 FINDINGS: Exam is limited by patient positioning. There is no evidence of acute fracture. Calcification of the nuchal ligament is seen. Degenerative changes and osteopenia are seen. The alignment is normal. Soft tissues are unremarkable. IMPRESSION: Degenerative changes without evidence of acute bony injury. ACT 112: Negative or not required by law. Electronically signed by: Cy Pena M.D. 05/06/2024 5:18 PM Chest X-Ray 05/06/24 16:12 SINGLE VIEW CHEST CLINICAL HISTORY: Cough. Fall. FINDINGS: 2 AP, portable, semierect chest radiographs are compared to study dated 12/17/2023. The examination is degraded by portable technique. The head largely obscures the right thorax on the initial image, and the second image is degraded by apical lordotic positioning. The patient is status post midline sternotomy. The heart is enlarged noting atherosclerotic calcification of the thoracic aorta. The pulmonary vasculature is noncongested. Chronic interstitial thickening is similar to previous. There is bibasilar scarring/atelectasis. No airspace consolidation or large pleural effusion is clearly identified. No pneumothorax is seen. The skeletal structures are osteopenic. There are chronic/healed left-sided rib fractures. Cholecystectomy clips are noted. IMPRESSION: 1. Cardiomegaly with no acute cardiopulmonary abnormality clearly identified. 2. Note that the examination is significantly degraded as above. Follow-up with a dedicated PA and lateral examination is recommended when the patient is clinically able. ACT 112: Negative or not required by law. Electronically signed by: Wilbur Granados M.D. 05/06/2024 5:11 PM Shoulder X-Ray 05/06/24 16:12 LEFT SHOULDER 3 VIEWS CLINICAL HISTORY: Fall. Left shoulder pain. FINDINGS: 3 views of the left shoulder are obtained. No prior studies are available for comparison at the time of dictation. The skeletal structures are osteopenic. There is no radiographic evidence of left shoulder fracture or dislocation. Mild degenerative change is seen at the glenohumeral and acromioclavicular joints. There is an acute to subacute appearing fracture of an anterolateral left mid to lower rib. Additional chronic/healed left-sided rib fractures are noted. The overlying soft tissues are within normal limits. The imaged left lung parenchyma appears clear. IMPRESSION: 1. There is no radiographic evidence of left shoulder fracture or dislocation. 2. There is an acute to subacute appearing fracture of an anterolateral left mid to lower rib. Correlate for point tenderness. Electronically signed by: Wilbur Granados M.D. 05/06/2024 4:56 PM Shoulder X-Ray 05/06/24 16:12 XR shoulder RT min 2V routine CLINICAL HISTORY: fall TECHNIQUE: 3 views of the right shoulder were obtained. Comparison: None available at the time of this dictation. FINDINGS: There is no evidence of an acute fracture. Joint spaces are well-preserved. The overlying soft tissues are unremarkable. The visualized portions of the lungs are clear. IMPRESSION: No evidence of acute osseous injury. ACT 112: Negative or not required by law. Electronically signed by: Cy Pena M.D. 05/06/2024 5:09 PM Pelvis X-Ray 05/06/24 16:13 XR pelvis 1-2V routine CLINICAL HISTORY: fall TECHNIQUE: A single frontal view of the pelvis was obtained. Comparison: Comparison is made to aortic ultrasound 01/09/2023 FINDINGS: There is no evidence of an acute fracture. Joint spaces are well-preserved. Vascular calcifications are noted including a prominent calcified abdominal aortic aneurysm measuring 7.1 cm. IMPRESSION: 1. No evidence of acute osseous injury. 2. Prominent aortic aneurysm which appears slightly enlarged from 2022 although this may be secondary to differences in technique. ACT 112: Negative or not required by law. Electronically signed by: Cy Pena M.D. 05/06/2024 5:[address] 05/06/24 21:18 Exam(s): CT CHEST Without Contrast EXAM: CT Chest Without Intravenous Contrast CLINICAL HISTORY: Reason for exam: R/O PNEUMONIA. TECHNIQUE: Axial computed tomography images of the chest without intravenous contrast. Automated exposure control was utilized for the study. A dose lowering technique was utilized adhering to the principles of ALARA. COMPARISON: No relevant prior studies available. FINDINGS: Lungs: Mild bibasilar fibrotic changes. No mass. No consolidation. Pleural space: Unremarkable. No pneumothorax. No significant effusion. Heart: Cardiomegaly. Coronary artery calcifications. No significant pericardial effusion. Bones/joints: Extreme thoracic kyphosis. Postoperative changes median sternotomy. No acute fracture. No dislocation. Soft tissues: Unremarkable. Vasculature: See above. Lymph nodes: Unremarkable. No enlarged lymph nodes. Gallbladder and bile ducts: Pneumobilia this is incompletely evaluated on this exam. IMPRESSION: No acute findings in the chest. Pneumobilia is incompletely evaluated on this exam. Extreme thoracic kyphosis Electronically signed by: Kailash Sharp MD 05/07/24 00:43 AM Videofluoroscopic Swallow 05/07/24 14:15 FL video swallow CLINICAL HISTORY: assess for aspiration TECHNIQUE: Video fluoroscopy of the pharyngeal region was performed as barium mixtures of varying consistencies were administered to the patient by the speech pathologist. A formal esophagram was not performed. Comparison: None available at the time of this dictation. FINDINGS: Total fluoroscopy time: 27 minutes. Radiation dose: 10.5 mGy. Penetration and aspiration were seen within with thin barium. Penetration and trace aspiration were seen with nectar consistency barium. Penetration was seen with pudding and the patient was unable to clear the bolus from the pharynx. Esophageal retention was seen. IMPRESSION: Penetration and aspiration as above. Please see the speech pathology report for further details. ACT 112: Negative or not required by law. Electronically signed by: Cy Pena M.D. 05/07/2024 4:19 PM PG Care Time/CCT Total # of Minutes Spent Total Time Spent with Patient: Total time spent is greater than 50% in coordination of care (as documented) at patient's floor/unit and/or counseling patient: I spent 90 minutes overall addressing this case: 15 min in medical data review/discussion with referring provider(s) and/or preparation for the visit 20 min in direct interaction with the patient/exam 30 min in Advance Care Planning/Goals of Care discussions as detailed above in note (must be >16min) 15 min in subsequent review and synthesis of assessment and plan 10 min communicating with other providers regarding the patient's case: Advanced Care Planning 79418 Advanced Care Planning 30 [place] [address] IN/OBS CONSULT LVL 4,60M (25 - SIGNIFICANT, SEPARATELY IDENTIFIABLE ) Patient Type New History Comprehensive Exam Comprehensive Medical Decision Making High Complexity Diagnoses Weakness generalized R53.1 Recurrent falls R29.6 Acute neck pain M54.2 Palliative care by specialist Z51.5 Advanced care planning/counseling discussion Z71.89 Additional Codes Advanced Care Planning - 81476 Advanced Care Planning 30 Min: 41233 Advanced Care Planning 30 Min ([id number])
[2024-05-09] MEDS: CYANOCOBALAMIN 1000 MCG/ML VIAL IM SCH (10:09)
[2024-05-09] MEDS: IBUPROFEN 200 MG TAB PO STA (14:03)
[2024-05-09] MEDS: DICLOFENAC SOD 1% GEL 100 GM TUBE EXT SCH (14:03)
--- NOTE | 2024-05-09 14:17 | Hospitalist Progress Note ---
Date of Service May 09, 2024 Assessment & Plan (1) Recurrent falls: (2) Difficulty swallowing: (3) Cervical kyphosis: (4) Seizure disorder: Plan: Mr. Wheeler is an 88-year-old male with history of CAD/CABG, CHF systolic and diastolic type, AAA, hypertension, dyslipidemia, seizure on Tegretol, admitted due to recurrent falls. Neurology suspects multifactorial, however, no further neurologic work up recommended at this time. Patient with progressive dysphagia, underwent video swallow this afternoon--noted to have no function swallow and severe oropharyngeal dysphagia. Patient agreeable to permissive aspiration and states that he does not want heroic efforts, therefore transitioned to DNR/DNI Patient participated with rehab and is now awaiting authorization for SNF. Patient medically stable. #Severe oropharyngeal dysphagia -Discussed with family--reports understanding of aspiration risk Agreeable at this time for permissive aspiration with pureed diet, but would like to discuss with palliative -Plan for pureed diet, continued GOC discussion -GOC discussion had at bedside, family mixed at this time on plan: DNR/DNI discontinue abx, no clear infectious source (CT negative and UA clean) #Cognitive impairment undergoing evaluation for dementia B12 notably <50, no B12 supplementation noted Start IM B12 x 7 days and plan weekly thereafter #Status post mechanical fall #Recurrent falls #Acute left rib fractures #Severe kyphosis CT head: No acute process, no focal deficits on exam Neurology: no further recommendations Lidoderm patch, incentive spirometry Tylenol IV for pain PT/OT, referrals for juniper #Hypokalemia *improved Secondary to poor intake, concomitant Lasix use K riders ordered #CAD/CABG No cardiac symptoms On aspirin, Plavix #Chronic CHF systolic and diastolic type Patient on the dry side continue to hold diuretics s/p gentle IV fluids encourage po #AAA Slightly enlarged per x-ray today Monitor closely, will be on heparin subcu for DVT prophylaxis #Hypertension On amlodipine #Dyslipidemia On rosuvastatin and Zetia #Seizure disorder On Tegretol DVT prophylaxis Heparin subcu twice daily Medically stable for dispo to rehab CODE STATUS DNR DNI after discussion 05/08 will continue to readdress given permissive aspiration PT/OT Admission and Anticipated Discharge Date Admission Date: May 06, 2024 Subjective NAEO Denies any new concerns, eager for rehab Physical Exam Constitutional: WD/WN, vitals as above Respiratory: normal respiratory effort, lungs clear to auscultation Cardiovascular: RRR, no murmur, no edema Gastrointestinal (Abdomen): normal bowel sounds, soft, nontender, no hepatosplenomegaly Results & Data Results & Data Vital Signs (Past 12 Hours) Vital Signs Temp Pulse Pulse Resp BP Pulse Ox O2 Del Method 05/09/24 14:10 76 05/09/24 11:51 36.2 C L 75 18 112/38 L 97 Room Air 05/09/24 10:43 Room Air 05/09/24 07:54 79 05/09/24 07:40 36.5 C 91 H 16 154/99 H 94 Room Air 05/09/24 03:14 36.3 C L 72 18 136/83 94 Room Air Laboratory Results Short CBC 05/09/24 Range/Units 07:14 WBC 8.04 (4.8-10.8) K/ul Hgb 14.1 (14.0-18.0) g/dl Hct 42.0 (42.0-52.0) % Plt Count 261 (130-400) K/uL [facility] 05/09/24 07:14 Sodium 138 Potassium 3.9 Chloride 100 Carbon Dioxide 32 BUN 8 Creatinine 0.47 L Glucose 101 H Calcium 9.5 Medications Administered Home Medications Medication Instructions Recorded Confirmed Last Taken carbamazepine 200 mg tablet 200 mg PO BID 12/28/19 05/06/24 05/06/24 (Tegretol) cholecalciferol (vitamin D3) 25 1,000 unit PO QAM 12/28/19 05/06/24 05/06/24 mcg (1,000 unit) tablet (Vitamin D3) ezetimibe 10 mg tablet (Zetia) 10 mg PO QPM 06/02/20 05/06/24 05/05/24 multivitamin 1 tab PO DAILY 06/02/20 05/06/24 05/06/24 rosuvastatin 40 mg tablet (Crestor) 40 mg PO QAM 06/02/20 05/06/24 05/06/24 nitroglycerin 0.4 mg sublingual 0.4 mg sublingual UD PRN chest 02/17/22 05/06/24 03/31/22 tablet (Nitrostat) pain #30 tabs amlodipine 5 mg tablet 5 mg PO AMHS 03/31/22 05/06/24 05/06/24 aspirin 81 mg tablet,delayed 81 mg PO QAM 04/17/22 05/06/24 05/06/24 release clopidogrel 75 mg tablet 75 mg PO QAM 04/17/22 05/06/24 05/06/24 spironolactone 25 mg tablet 25 mg PO QAM 01/08/23 05/06/24 05/06/24 ferrous sulfate 28 mg iron tablet 28 mg PO QAM 12/17/23 05/06/24 05/06/24 furosemide 20 mg tablet 20 mg PO QAM 12/17/23 05/06/24 05/06/24 metoprolol tartrate 50 mg tablet 50 mg PO BID 12/17/23 05/06/24 05/06/24 nitroglycerin 0.4 mg/hr 1 patch transdermal QAM #30 ea 12/19/23 05/06/24 05/06/24 transdermal 24 hour patch (Nitro-Dur) amoxicillin 875 mg-potassium 1 tab PO BID 5 days #10 tabs 04/25/24 05/06/24 05/06/24 clavulanate 125 mg tablet lidocaine 4 % topical patch 1 patch topical DAILY PRN pain #10 04/28/24 05/06/24 Unknown (AsperFlex (lidocaine)) ea Active Medications Generic Name Dose Route Start Last Admin Trade Name Rickq PRN Reason Stop Dose Admin Carbamazepine 200 mg 05/06/24 21:18 05/09/24 10:08 Carbamazepine 200 Mg Tablet PO 06/05/24 21:17 200 mg BID DIANA Administration Cyanocobalamin 1,000 mcg 05/09/24 09:00 05/09/24 10:09 Cyanocobalamin 1000 Mcg/Ml Vial IM 06/08/24 08:59 1,000 mcg QAM DIANA Administration Diclofenac Sodium 2 gm 05/09/24 14:00 05/09/24 14:03 Diclofenac Sod 1% Gel 100 Gm Tube EXT 06/08/24 13:59 2 gm Q8H DIANA Administration Protocol Heparin Sodium (Porcine) 5,000 units 05/06/24 21:00 05/09/24 10:09 Heparin Sod 5,000 Unit/0.5 Ml Vial SQ 06/05/24 20:59 5,000 units Q12 DIANA Administration Lidocaine 1 patch 05/06/24 21:18 05/08/24 19:49 Lidocaine 5% 1 Patch TD 06/05/24 21:17 1 patch HS DIANA Administration Metoprolol Tartrate 50 mg 05/06/24 21:18 05/09/24 10:08 Metoprolol Tartrate 50 Mg Tab PO 06/05/24 21:17 50 mg BID DIANA Administration Miscellaneous 1 each 05/06/24 21:18 05/08/24 19:49 Remove Nitro-Dur Patch N/A 06/05/24 21:17 1 each DAILY@2100 DIANA Administration Miscellaneous 1 each 05/07/24 09:00 05/09/24 10:10 Remove Lidoderm Patch N/A 06/06/24 08:59 1 each DAILY@0900 DIANA Administration Nitroglycerin 1 patch 05/07/24 09:00 05/09/24 10:09 Nitroglycerin 0.4 Mg/Hr Patch TD 06/06/24 08:59 1 patch QAM DIANA Administration (2) Difficulty swallowing Dysphagia type: pharyngoesophageal phase Qualified Code(s): R13.14 - Dysphagia, pharyngoesophageal phase (3) Cervical kyphosis Kyphosis type: other Qualified Code(s): M40.292 - Other kyphosis, cervical region
--- NOTE | 2024-05-10 13:02 | Hospitalist Progress Note ---
Date of Service May 10, 2024 Assessment & Plan (1) Recurrent falls: (2) Difficulty swallowing: (3) Cervical kyphosis: (4) Seizure disorder: Plan: Mr. Wheeler is an 88-year-old male with history of CAD/CABG, CHF systolic and diastolic type, AAA, hypertension, dyslipidemia, seizure on Tegretol, admitted due to recurrent falls. Neurology suspects multifactorial, however, no further neurologic work up recommended at this time. Patient with progressive dysphagia, underwent video swallow this afternoon--noted to have no function swallow and severe oropharyngeal dysphagia. Patient agreeable to permissive aspiration and states that he does not want heroic efforts, therefore transitioned to DNR/DNI Patient participated with rehab and is now awaiting authorization for SNF. Patient medically stable. No changes #Severe oropharyngeal dysphagia -Discussed with family--reports understanding of aspiration risk Agreeable at this time for permissive aspiration with pureed diet, but would like to discuss with palliative -Plan for pureed diet, continued GOC discussion -GOC discussion had at bedside, family mixed at this time on plan: DNR/DNI discontinue abx, no clear infectious source (CT negative and UA clean) #Cognitive impairment undergoing evaluation for dementia B12 notably <50, no B12 supplementation noted Start IM B12 x 7 days and plan weekly thereafter #Status post mechanical fall #Recurrent falls #Acute left rib fractures #Severe kyphosis CT head: No acute process, no focal deficits on exam Neurology: no further recommendations Lidoderm patch, incentive spirometry Tylenol IV for pain PT/OT, referrals for juniper #Hypokalemia *resolved ctm #CAD/CABG No cardiac symptoms On aspirin, Plavix #Chronic CHF systolic and diastolic type Patient on the dry side continue to hold diuretics s/p gentle IV fluids encourage po #AAA Slightly enlarged per x-ray today Monitor closely, will be on heparin subcu for DVT prophylaxis #Hypertension On amlodipine #Dyslipidemia On rosuvastatin and Zetia #Seizure disorder On Tegretol DVT prophylaxis Heparin subcu twice daily Medically stable for dispo to rehab transfer from [facility]. CODE STATUS DNR DNI after discussion 05/08 will continue to readdress given permissive aspiration PT/OT Admission and Anticipated Discharge Date Admission Date: May 06, 2024 Subjective NAEO Reports eagerness for rehab Physical Exam Constitutional: WD/WN, vitals as above Respiratory: normal respiratory effort, lungs clear to auscultation Cardiovascular: RRR, no murmur, no edema Gastrointestinal (Abdomen): normal bowel sounds, soft, nontender, no hepatosplenomegaly Results & Data Results & Data Vital Signs (Past 12 Hours) Vital Signs Temp Pulse Pulse Resp BP Pulse Ox O2 Del Method 05/10/24 12:03 36.4 C L 82 16 101/67 94 Room Air 05/10/24 10:13 Room Air 05/10/24 08:15 79 05/10/24 07:39 37.1 C 74 16 128/74 92 Room Air 05/10/24 02:50 37.1 C 73 18 110/73 95 Room Air Medications Administered Home Medications Medication Instructions Recorded Confirmed Last Taken carbamazepine 200 mg tablet 200 mg PO BID 12/28/19 05/06/24 05/06/24 (Tegretol) cholecalciferol (vitamin D3) 25 1,000 unit PO QAM 12/28/19 05/06/24 05/06/24 mcg (1,000 unit) tablet (Vitamin D3) ezetimibe 10 mg tablet (Zetia) 10 mg PO QPM 06/02/20 05/06/24 05/05/24 multivitamin 1 tab PO DAILY 06/02/20 05/06/24 05/06/24 rosuvastatin 40 mg tablet (Crestor) 40 mg PO QAM 06/02/20 05/06/24 05/06/24 nitroglycerin 0.4 mg sublingual 0.4 mg sublingual UD PRN chest 02/17/22 05/06/24 03/31/22 tablet (Nitrostat) pain #30 tabs amlodipine 5 mg tablet 5 mg PO AMHS 03/31/22 05/06/24 05/06/24 aspirin 81 mg tablet,delayed 81 mg PO QAM 04/17/22 05/06/24 05/06/24 release clopidogrel 75 mg tablet 75 mg PO QAM 04/17/22 05/06/24 05/06/24 spironolactone 25 mg tablet 25 mg PO QAM 01/08/23 05/06/24 05/06/24 ferrous sulfate 28 mg iron tablet 28 mg PO QAM 12/17/23 05/06/24 05/06/24 furosemide 20 mg tablet 20 mg PO QAM 12/17/23 05/06/24 05/06/24 metoprolol tartrate 50 mg tablet 50 mg PO BID 12/17/23 05/06/24 05/06/24 nitroglycerin 0.4 mg/hr 1 patch transdermal QAM #30 ea 12/19/23 05/06/24 05/06/24 transdermal 24 hour patch (Nitro-Dur) amoxicillin 875 mg-potassium 1 tab PO BID 5 days #10 tabs 04/25/24 05/06/24 05/06/24 clavulanate 125 mg tablet lidocaine 4 % topical patch 1 patch topical DAILY PRN pain #10 04/28/24 05/06/24 Unknown (AsperFlex (lidocaine)) ea Active Medications Generic Name Dose Route Start Last Admin Trade Name Freq PRN Reason Stop Dose Admin Carbamazepine 200 mg 05/06/24 21:18 05/10/24 10:01 Carbamazepine 200 Mg Tablet PO 06/05/24 21:17 200 mg BID DIANA Administration Cyanocobalamin 1,000 mcg 05/09/24 09:00 05/10/24 10:02 Cyanocobalamin 1000 Mcg/Ml Vial IM 06/08/24 08:59 1,000 mcg QAM DIANA Administration Diclofenac Sodium 2 gm 05/09/24 14:00 05/10/24 05:54 Diclofenac Sod 1% Gel 100 Gm Tube EXT 06/08/24 13:59 2 gm Q8H DIANA Administration Protocol Heparin Sodium (Porcine) 5,000 units 05/06/24 21:00 05/10/24 11:08 Heparin Sod 5,000 Unit/0.5 Ml Vial SQ 06/05/24 20:59 5,000 units Q12 DIANA Administration Lidocaine 1 patch 05/06/24 21:18 05/09/24 20:48 Lidocaine 5% 1 Patch TD 06/05/24 21:17 1 patch HS DIANA Administration Metoprolol Tartrate 50 mg 05/06/24 21:18 05/10/24 10:01 Metoprolol Tartrate 50 Mg Tab PO 06/05/24 21:17 50 mg BID DIANA Administration Miscellaneous 1 each 05/06/24 21:18 05/09/24 20:47 Remove Nitro-Dur Patch N/A 06/05/24 21:17 1 each DAILY@2100 DIANA Administration Miscellaneous 1 each 05/07/24 09:00 05/10/24 10:02 Remove Lidoderm Patch N/A 06/06/24 08:59 1 each DAILY@0900 DIANA Administration Nitroglycerin 1 patch 05/07/24 09:00 05/10/24 10:01 Nitroglycerin 0.4 Mg/Hr Patch TD 06/06/24 08:59 1 patch QAM DIANA Administration (2) Difficulty swallowing Dysphagia type: pharyngoesophageal phase Qualified Code(s): R13.14 - Dysphagia, pharyngoesophageal phase (3) Cervical kyphosis Kyphosis type: other Qualified Code(s): M40.292 - Other kyphosis, cervical region
[2024-05-10] MEDS: EZETIMIBE 10 MG TAB PO SCH (22:07)
[2024-05-11] MEDS: ASPIRIN 81 MG ECTAB PO SCH (08:22)
[2024-05-11] MEDS: FERROUS SULFATE 325 MG TAB PO SCH (08:23)
[2024-05-11] MEDS: CLOPIDOGREL BISULFATE 75 MG TAB PO SCH (08:23)
[2024-05-11] MEDS: ROSUVASTATIN CALCIUM 20 MG TAB PO SCH (08:26)
--- NOTE | 2024-05-11 11:16 | Hospitalist Progress Note ---
Date of Service May 11, 2024 Assessment & Plan (1) Recurrent falls: (2) Difficulty swallowing: (3) Cervical kyphosis: (4) Seizure disorder: Plan: Mr. Wheeler is an 88-year-old male with history of CAD/CABG, CHF systolic and diastolic type, AAA, hypertension, dyslipidemia, seizure on Tegretol, admitted due to recurrent falls. Neurology suspects multifactorial, however, no further neurologic work up recommended at this time. Patient with progressive dysphagia, underwent video swallow this afternoon--noted to have no function swallow and severe oropharyngeal dysphagia. Patient agreeable to permissive aspiration and states that he does not want heroic efforts, therefore transitioned to DNR/DNI Patient participated with rehab and is now awaiting authorization for SNF. Patient medically stable. No changes this am as of 05/11, #Severe oropharyngeal dysphagia #GOC conversation, ongoing -Discussed with family--reports understanding of aspiration risk Agreeable at this time for permissive aspiration with pureed diet, but would like to discuss with palliative -Plan for pureed diet, continued GOC discussion -GOC discussion had at bedside, family mixed at this time on plan: DNR/DNI discontinue abx, no clear infectious source (CT negative and UA clean) Continue permissive aspiration #Cognitive impairment undergoing evaluation for dementia B12 notably <50, no B12 supplementation noted Start IM B12 x 7 days and plan weekly thereafter #Status post mechanical fall #Recurrent falls #Acute left rib fractures #Severe kyphosis CT head: No acute process, no focal deficits on exam Neurology: no further recommendations Lidoderm patch, incentive spirometry Tylenol IV for pain PT/OT, referrals for juniper #Hypokalemia *resolved ctm #CAD/CABG No cardiac symptoms On aspirin, Plavix #Chronic CHF systolic and diastolic type Patient on the dry side continue to hold diuretics s/p gentle IV fluids encourage po #AAA Slightly enlarged per x-ray today Monitor closely, will be on heparin subcu for DVT prophylaxis #Hypertension On amlodipine #Dyslipidemia On rosuvastatin and Zetia #Seizure disorder On Tegretol DVT prophylaxis Heparin subcu twice daily Medically stable for dispo to rehab transfer from [facility]. CODE STATUS DNR DNI after discussion 05/08 PT/OT Admission and Anticipated Discharge Date Admission Date: May 06, 2024 Subjective NAEO Reports feeling well this morning, denies chest pain, palpitations or other acute concerns Excited for family to visit today and eager for rehab Physical Exam Constitutional: WD/WN, vitals as above OOB in chair, comfortably resting Respiratory: normal respiratory effort, lungs clear to auscultation Cardiovascular: RRR, no murmur, no edema Gastrointestinal (Abdomen): normal bowel sounds, soft, nontender, no hepatosplenomegaly Results & Data Results & Data Vital Signs (Past 12 Hours) Vital Signs Temp Pulse Resp BP Pulse Ox O2 Del Method O2 Flow Rate 05/11/24 07:30 Room Air 05/11/24 07:25 98 Room Air 05/11/24 07:17 36.5 C 68 16 116/74 98 Nasal Cannula 2 05/11/24 02:26 92 Nasal Cannula 2 05/11/24 02:26 97 Room Air Medications Administered Home Medications Medication Instructions Recorded Confirmed Last Taken carbamazepine 200 mg tablet 200 mg PO BID 12/28/19 05/06/24 05/06/24 (Tegretol) cholecalciferol (vitamin D3) 25 1,000 unit PO QAM 12/28/19 05/06/24 05/06/24 mcg (1,000 unit) tablet (Vitamin D3) ezetimibe 10 mg tablet (Zetia) 10 mg PO QPM 06/02/20 05/06/24 05/05/24 multivitamin 1 tab PO DAILY 06/02/20 05/06/24 05/06/24 rosuvastatin 40 mg tablet (Crestor) 40 mg PO QAM 06/02/20 05/06/24 05/06/24 nitroglycerin 0.4 mg sublingual 0.4 mg sublingual UD PRN chest 02/17/22 05/06/24 03/31/22 tablet (Nitrostat) pain #30 tabs amlodipine 5 mg tablet 5 mg PO AMHS 03/31/22 05/06/24 05/06/24 aspirin 81 mg tablet,delayed 81 mg PO QAM 04/17/22 05/06/24 05/06/24 release clopidogrel 75 mg tablet 75 mg PO QAM 04/17/22 05/06/24 05/06/24 spironolactone 25 mg tablet 25 mg PO QAM 01/08/23 05/06/24 05/06/24 ferrous sulfate 28 mg iron tablet 28 mg PO QAM 12/17/23 05/06/24 05/06/24 furosemide 20 mg tablet 20 mg PO QAM 12/17/23 05/06/24 05/06/24 metoprolol tartrate 50 mg tablet 50 mg PO BID 12/17/23 05/06/24 05/06/24 nitroglycerin 0.4 mg/hr 1 patch transdermal QAM #30 ea 12/19/23 05/06/24 05/06/24 transdermal 24 hour patch (Nitro-Dur) amoxicillin 875 mg-potassium 1 tab PO BID 5 days #10 tabs 04/25/24 05/06/24 05/06/24 clavulanate 125 mg tablet lidocaine 4 % topical patch 1 patch topical DAILY PRN pain #10 04/28/24 05/06/24 Unknown (AsperFlex (lidocaine)) ea Active Medications Generic Name Dose Route Start Last Admin Trade Name Freq PRN Reason Stop Dose Admin Aspirin 81 mg 05/11/24 09:00 05/11/24 08:22 Aspirin 81 Mg Ectab PO 06/10/24 08:59 81 mg QAM DIANA Administration Carbamazepine 200 mg 05/06/24 21:18 05/11/24 08:24 Carbamazepine 200 Mg Tablet PO 06/05/24 21:17 200 mg BID DIANA Administration Clopidogrel Bisulfate 75 mg 05/11/24 09:00 05/11/24 08:23 Clopidogrel Bisulfate 75 Mg Tab PO 06/10/24 08:59 75 mg QAM DIANA Administration Cyanocobalamin 1,000 mcg 05/09/24 09:00 05/11/24 08:23 Cyanocobalamin 1000 Mcg/Ml Vial IM 06/08/24 08:59 1,000 mcg QAM DIANA Administration Diclofenac Sodium 2 gm 05/09/24 14:00 05/11/24 06:35 Diclofenac Sod 1% Gel 100 Gm Tube EXT 06/08/24 13:59 2 gm Q8H DIANA Administration Protocol Ezetimibe 10 mg 05/10/24 21:00 05/10/24 22:07 Ezetimibe 10 Mg Tab PO 06/09/24 20:59 10 mg QPM DIANA Administration Ferrous Sulfate 325 mg 05/11/24 09:00 05/11/24 08:23 Ferrous Sulfate 325 Mg Tab PO 06/10/24 08:59 325 mg QAM DIANA Administration Heparin Sodium (Porcine) 5,000 units 05/06/24 21:00 05/11/24 08:25 Heparin Sod 5,000 Unit/0.5 Ml Vial SQ 06/05/24 20:59 5,000 units Q12 DIANA Administration Lidocaine 1 patch 05/06/24 21:18 05/10/24 22:07 Lidocaine 5% 1 Patch TD 06/05/24 21:17 1 patch HS DIANA Administration Metoprolol Tartrate 50 mg 05/06/24 21:18 05/11/24 08:24 Metoprolol Tartrate 50 Mg Tab PO 06/05/24 21:17 50 mg BID DIANA Administration Miscellaneous 1 each 05/06/24 21:18 05/10/24 22:18 Remove Nitro-Dur Patch N/A 06/05/24 21:17 Not Given DAILY@2100 DIANA Miscellaneous 1 each 05/07/24 09:00 05/11/24 08:25 Remove Lidoderm Patch N/A 06/06/24 08:59 1 each DAILY@0900 DIANA Administration Nitroglycerin 1 patch 05/07/24 09:00 05/11/24 08:24 Nitroglycerin 0.4 Mg/Hr Patch TD 06/06/24 08:59 1 patch QAM DIANA Administration Rosuvastatin Calcium 40 mg 05/11/24 09:00 05/11/24 08:26 Rosuvastatin Calcium 20 Mg Tab PO 06/10/24 08:59 40 mg QAM DIANA Administration (2) Difficulty swallowing Dysphagia type: pharyngoesophageal phase Qualified Code(s): R13.14 - Dysphagia, pharyngoesophageal phase (3) Cervical kyphosis Kyphosis type: other Qualified Code(s): M40.292 - Other kyphosis, cervical region
--- NOTE | 2024-05-12 09:37 | Hospitalist Progress Note ---
Date of Service May 12, 2024 Assessment & Plan (1) Recurrent falls: (2) Difficulty swallowing: (3) Cervical kyphosis: (4) Seizure disorder: Plan: Mr. Wheeler is an 88-year-old male with history of CAD/CABG, CHF systolic and diastolic type, AAA, hypertension, dyslipidemia, seizure on Tegretol, admitted due to recurrent falls. Neurology suspects multifactorial, however, no further neurologic work up recommended at this time. Patient with progressive dysphagia, underwent video swallow this afternoon--noted to have no function swallow and severe oropharyngeal dysphagia. Patient agreeable to permissive aspiration and states that he does not want heroic efforts, therefore transitioned to DNR/DNI Patient participated with rehab and is now awaiting authorization for SNF. Patient medically stable. This morning, change asa to chew tablet and iron to elixir. Patient without concerns. #Severe oropharyngeal dysphagia #GOC conversation, ongoing -Discussed with family--reports understanding of aspiration risk Agreeable at this time for permissive aspiration with pureed diet, but would like to discuss with palliative -Plan for pureed diet, continued GOC discussion -GOC discussion had at bedside, family mixed at this time on plan: DNR/DNI discontinue abx, no clear infectious source (CT negative and UA clean) Continue permissive aspiration #Cognitive impairment undergoing evaluation for dementia B12 notably <50, no B12 supplementation noted Start IM B12 x 7 days and plan weekly thereafter #Status post mechanical fall #Recurrent falls #Acute left rib fractures #Severe kyphosis CT head: No acute process, no focal deficits on exam Neurology: no further recommendations Lidoderm patch, incentive spirometry Tylenol IV for pain PT/OT, referrals for [facility] #Hypokalemia *resolved ctm #CAD/CABG No cardiac symptoms On aspirin, Plavix #Chronic CHF systolic and diastolic type Patient on the dry side continue to hold diuretics s/p gentle IV fluids encourage po #AAA Slightly enlarged per x-ray today Monitor closely, will be on heparin subcu for DVT prophylaxis #Hypertension On amlodipine #Dyslipidemia On rosuvastatin and Zetia #Seizure disorder On Tegretol DVT prophylaxis Heparin subcu twice daily Medically stable for dispo to rehab transfer from [facility]. CODE STATUS DNR DNI after discussion 05/08 PT/OT recommends SNF--pending bed Admission and Anticipated Discharge Date Admission Date: May 06, 2024 Subjective NAEO Denies any new concerns Awaiting rehab Physical Exam Constitutional: WD/WN, vitals as above sitting in bedside chair comfortably Respiratory: normal respiratory effort, lungs clear to auscultation Cardiovascular: RRR, no murmur, no edema Gastrointestinal (Abdomen): normal bowel sounds, soft, nontender, no hepatosplenomegaly Results & Data Results & Data Vital Signs (Past 12 Hours) Vital Signs Temp Pulse Resp BP Pulse Ox O2 Del Method O2 Flow Rate 05/12/24 07:39 36.8 C 72 14 116/69 95 Room Air 05/11/24 22:28 95 Nasal Cannula 2 Medications Administered Home Medications Medication Instructions Recorded Confirmed Last Taken carbamazepine 200 mg tablet 200 mg PO BID 12/28/19 05/06/24 05/06/24 (Tegretol) cholecalciferol (vitamin D3) 25 1,000 unit PO QAM 12/28/19 05/06/24 05/06/24 mcg (1,000 unit) tablet (Vitamin D3) ezetimibe 10 mg tablet (Zetia) 10 mg PO QPM 06/02/20 05/06/24 05/05/24 multivitamin 1 tab PO DAILY 06/02/20 05/06/24 05/06/24 rosuvastatin 40 mg tablet (Crestor) 40 mg PO QAM 06/02/20 05/06/24 05/06/24 nitroglycerin 0.4 mg sublingual 0.4 mg sublingual UD PRN chest 02/17/22 05/06/24 03/31/22 tablet (Nitrostat) pain #30 tabs amlodipine 5 mg tablet 5 mg PO AMHS 03/31/22 05/06/24 05/06/24 aspirin 81 mg tablet,delayed 81 mg PO QAM 04/17/22 05/06/24 05/06/24 release clopidogrel 75 mg tablet 75 mg PO QAM 04/17/22 05/06/24 05/06/24 spironolactone 25 mg tablet 25 mg PO QAM 01/08/23 05/06/24 05/06/24 ferrous sulfate 28 mg iron tablet 28 mg PO QAM 12/17/23 05/06/24 05/06/24 furosemide 20 mg tablet 20 mg PO QAM 12/17/23 05/06/24 05/06/24 metoprolol tartrate 50 mg tablet 50 mg PO BID 12/17/23 05/06/24 05/06/24 nitroglycerin 0.4 mg/hr 1 patch transdermal QAM #30 ea 12/19/23 05/06/24 05/06/24 transdermal 24 hour patch (Nitro-Dur) amoxicillin 875 mg-potassium 1 tab PO BID 5 days #10 tabs 04/25/24 05/06/24 05/06/24 clavulanate 125 mg tablet lidocaine 4 % topical patch 1 patch topical DAILY PRN pain #10 04/28/24 05/06/24 Unknown (AsperFlex (lidocaine)) ea Active Medications Generic Name Dose Route Start Last Admin Trade Name Freq PRN Reason Stop Dose Admin Carbamazepine 200 mg 05/06/24 21:18 05/12/24 07:57 Carbamazepine 200 Mg Tablet PO 06/05/24 21:17 200 mg BID DIANA Administration Clopidogrel Bisulfate 75 mg 05/11/24 09:00 05/12/24 07:58 Clopidogrel Bisulfate 75 Mg Tab PO 06/10/24 08:59 75 mg QAM DIANA Administration Cyanocobalamin 1,000 mcg 05/09/24 09:00 05/12/24 07:58 Cyanocobalamin 1000 Mcg/Ml Vial IM 06/08/24 08:59 1,000 mcg QAM DIANA Administration Diclofenac Sodium 2 gm 05/09/24 14:00 05/12/24 05:30 Diclofenac Sod 1% Gel 100 Gm Tube EXT 06/08/24 13:59 2 gm Q8H DIANA Administration Protocol Ezetimibe 10 mg 05/10/24 21:00 05/11/24 20:15 Ezetimibe 10 Mg Tab PO 06/09/24 20:59 10 mg QPM DIANA Administration Heparin Sodium (Porcine) 5,000 units 05/06/24 21:00 05/12/24 07:58 Heparin Sod 5,000 Unit/0.5 Ml Vial SQ 06/05/24 20:59 5,000 units Q12 DIANA Administration Lidocaine 1 patch 05/06/24 21:18 05/11/24 20:15 Lidocaine 5% 1 Patch TD 06/05/24 21:17 1 patch HS DIANA Administration Metoprolol Tartrate 50 mg 05/06/24 21:18 05/12/24 07:57 Metoprolol Tartrate 50 Mg Tab PO 06/05/24 21:17 50 mg BID DIANA Administration Miscellaneous 1 each 05/06/24 21:18 05/11/24 20:16 Remove Nitro-Dur Patch N/A 06/05/24 21:17 Not Given DAILY@2100 DIANA Miscellaneous 1 each 05/07/24 09:00 05/12/24 08:00 Remove Lidoderm Patch N/A 06/06/24 08:59 1 each DAILY@0900 DIANA Administration Nitroglycerin 1 patch 05/07/24 09:00 05/12/24 07:59 Nitroglycerin 0.4 Mg/Hr Patch TD 06/06/24 08:59 1 patch QAM DIANA Administration Rosuvastatin Calcium 40 mg 05/11/24 09:00 05/12/24 07:57 Rosuvastatin Calcium 20 Mg Tab PO 06/10/24 08:59 40 mg QAM DIANA Administration (2) Difficulty swallowing Dysphagia type: pharyngoesophageal phase Qualified Code(s): R13.14 - Dysphagia, pharyngoesophageal phase (3) Cervical kyphosis Kyphosis type: other Qualified Code(s): M40.292 - Other kyphosis, cervical region
[2024-05-13] MEDS: FERROUS SULFATE 325 MG/7.4 ML UDP PO SCH (08:39)
[2024-05-13] MEDS: ASPIRIN 81 MG CHEW PO SCH (08:39)
--- NOTE | 2024-05-13 13:47 | Discharge Summary ---
Discharge Summary Date of Service May 13, 2024 Principal Dx & Hospital Course #1 = Principal Diagnosis (1) Recurrent falls: (2) Difficulty swallowing: (3) Cervical kyphosis: (4) Seizure disorder: Mr. Wheeler is an 88-year-old male with history of CAD/CABG, CHF systolic and diastolic type, AAA, hypertension, dyslipidemia, seizure on Tegretol, admitted due to recurrent falls. Neurology suspects multifactorial, however, no further neurologic work up recommended at this time. Patient with progressive dysphagia, underwent video swallow 05/10--noted to have no function swallow and severe oropharyngeal dysphagia. Patient agreeable to permissive aspiration and states that he does not want heroic efforts, therefore transitioned to DNR/DNI Patient participated with rehab and is now awaiting authorization for SNF. Palliative spoke with patient and , with posibility of home hospice after rehab. Patient medically stable. On day of discharge, patient was excited and eager for rehab. Denies any acute concerns during visit. #Severe oropharyngeal dysphagia #GOC conversation, ongoing -Discussed with family--reports understanding of aspiration risk Agreeable at this time for permissive aspiration with pureed diet, but would like to discuss with palliative -Plan for pureed diet, continued GOC discussion -GOC discussion had at bedside, family mixed at this time on plan: DNR/DNI discontinue abx, no clear infectious source (CT negative and UA clean) Continue permissive aspiration #Cognitive impairment undergoing evaluation for dementia with hallucinations B12 notably <50, no B12 supplementation noted Start IM B12 x 7: transitioned to qWed Follow up with PCP/Neurologist for continued monitoring #Status post mechanical fall #Recurrent falls #Acute left rib fractures #Severe kyphosis CT head: No acute process, no focal deficits on exam Neurology: no further recommendations Lidoderm patch, incentive spirometry PT/OT,: dispo to rehab #Hypokalemia *resolved ctm #CAD/CABG No cardiac symptoms On aspirin, Plavix #Chronic CHF systolic and diastolic type Patient on the dry side continue to hold diuretics s/p gentle IV fluids encourage po #AAA Slightly enlarged per x-ray on admission stable #Hypertension On amlodipine: discontinued on spironolactone: discontinued #Dyslipidemia On rosuvastatin and Zetia #Seizure disorder On Tegretol Notes For Next Care Provider Per palliative visit: " wants a trial of rehab and feels going home from here with hospice "is too much finality." He is willing to accommodate her wishes but overall notes desire to to ultimately be home and optimize QOL / family time. If he worsens while there ,then home with hospice. If he hates it then home with hospice. If he finishes and can be dc then home with hospice. She was very reluctant to consider home hospice from hospital. Several questions about what to expect moving forward - what happens when aspiration worsens, what are symptoms to expect, how are they managed etc. All answered to their apparent satisfaction. Dying changes at EOL reviewed at 's request. hospice discussed in detail." Medication Changes From Visit Discontinued Lasix, Spironolactone, Amlodipine 2/2 poor PO intake, normotensive/low pressures, orthostasis Admission HPI Per Admitting Provider 88-year-old male with history of CAD/CABG, CHF systolic and diastolic type, abdominal aortic aneurysm, hypertension, dyslipidemia, seizures on Tegretol, presenting with recurrent falls. History obtained from patient and at the bedside. Outpatient [facility] records also reviewed. Patient has been having multiple falls for the past few months. As per patient, he keeps on losing his balance leading to the falls. Also, on some occasions, he would notice bilateral lower extremity shaking, before the falls happen. He denies lower extremity weakness, numbness, tingling, back pain. Denies losing consciousness, chest pain, palpitations, dizziness surrounding the falls. The fall would often lead to him hitting his head. This morning, around 4 AM, the patient was walking around the bed when again he lost his balance, falling, and hitting his head in the process. Again, no dizziness, lightheadedness, chest pain, palpitations, loss of consciousness. He was then brought to the ER for evaluation On admission, his vital signs overall stable. CT head no acute process. EKG Pending Chest x-ray showing bibasilar infiltrates/atelectasis, left anterolateral mid to lower rib fractures Hospitalist consulted for admission. Patient seen resting in bed, sitting up, not in distress, comfortable. States he feels okay overall Denies shortness of breath, dizziness, headache, nausea vomiting, abdominal pain, problems with urination or bowel movement. He does have some left lower rib pain. Appetite not great. Also has some upper back, lower posterior neck discomfort No other symptoms Admission Exam Per Admitting Provider General- oriented x 3, not in distress, speaks in sentences with no effort or accessory muscle use Head- atraumatic, No obvious head injuries Eyes- PERRL, EOMI, anicteric ENT- oropharynx clear Neck- supple, no JVD, no adenopathy, no thyromegaly; carotids +2/2, no bruits appreciated Positive severe kyphosis Lungs-Mild rales left base, no wheezing Heart- normal rate, regular rhythm; no murmur, no gallop, no rub appreciated Abdomen- normal bowel sounds, nondistended, soft, nontender, no masses or hepatosplenomegaly Extremities- no pretibial edema, no calf tenderness; peripheral pulses intact Neuro- alert, oriented x 3; CN 2-12 grossly intact; motor 5/5 bilaterally;sensation 100% on all extremities; no other gross focal neurologic deficits Skin- warm & dry Discharge Exam Constitutional WD/WN, vitals as above Respiratory normal respiratory effort, lungs clear to auscultation Cardiovascular RRR, no murmur, no edema Gastrointestinal (Abdomen) normal bowel sounds, soft, nontender, no hepatosplenomegaly Updated Medication List Medication Instructions Recorded Confirmed Type carbamazepine 200 mg tablet 200 mg PO BID 12/28/19 05/06/24 History (Tegretol) cholecalciferol (vitamin D3) 25 1,000 unit PO QAM 12/28/19 05/06/24 History mcg (1,000 unit) tablet (Vitamin D3) ezetimibe 10 mg tablet (Zetia) 10 mg PO QPM 06/02/20 05/06/24 History multivitamin 1 tab PO DAILY 06/02/20 05/06/24 History rosuvastatin 40 mg tablet (Crestor) 40 mg PO QAM 06/02/20 05/06/24 History aspirin 81 mg tablet,delayed 81 mg PO QAM 04/17/22 05/06/24 History release clopidogrel 75 mg tablet 75 mg PO QAM 04/17/22 05/06/24 History metoprolol tartrate 50 mg tablet 50 mg PO BID 12/17/23 05/06/24 History nitroglycerin 0.4 mg/hr 1 patch transdermal QAM #30 ea 12/19/23 05/06/24 Rx transdermal 24 hour patch (Nitro-Dur) lidocaine 4 % topical patch 1 patch topical DAILY PRN pain #10 04/28/24 05/06/24 Rx (AsperFlex (lidocaine)) ea cyanocobalamin (vitamin B-12) 1,000 mcg IM Q7D #30 mL 05/13/24 Rx 1,000 mcg/mL injection solution ferrous sulfate 220 mg (44 mg 325 mg (7.3864 mL) PO QAM #60 mL 05/13/24 Rx iron)/5 mL oral elixir Hospital Stay Data Consultations 05/06/24 18:13 ED Decision to Admit Stat 05/06/24 21:18 Consult Neurology Routine 05/07/24 15:24 Consult Palliative Care Routine Diagnostic Imagining Performed 05/06/24 12:51 CT Brain [CT head/brain wo con] Stat 05/06/24 15:48 CT cervical spine wo con Stat 05/06/24 21:18 CT chest diagnostic wo con Routine 05/07/24 14:15 FL video swallow Routine Pending Results Patient Have Any Pending Studies at Discharge: No Discharge Instructions Given to Patient (Per Discharging Provider) You were admitted due to recurrent falls. Neurology suspects multifactorial, however, no further neurologic work up recommended at this time. You were noted to be deficient in B12, which was replaced by IM injections. You will continue B12 IM every Sunday. Your blood pressure medications were stopped: amlodipine, furosemide, spironolactone You were noted to have progressive dysphagia/difficulty swallowing, please continue to trial pureed foods and crushed medications; however, you were agreeable to permissive aspiration, knowing that there is still a risk to choke on this consistency. Total Time Total Time Spent Total Time Spent (In Minutes): 35
== END 2024-05-13 14:10 | DRG 92 ==
LOC: ED 12:41 → 2N 19:38 → SUATTDRO 19:38 → 2N 20:26 → 3E 05-10 17:53